=== PATIENT | male | born 1950 | race Caucasian/White ===

== ENCOUNTER 2016-03-08 05:14 | Day surgery (SDC) | payer BC ==
[2016-03-05 09:21] VITALS: BMI 34.0
--- NOTE | 2016-03-05 10:05 | PAT Medication Instructions ---
Service Date Mar 05, 2016. Current Home Medication List Acetaminophen (Tylenol), 500 MG PO BID Albuterol (Proventil Hfa), 3 PUFFS INH Q4 PRN for PRN Ascorbic Acid (Vitamin C), 1,000 MG PO QAM Aspirin Enteric Coated (Ecotrin Or Generic), 81 MG PO QAM Atenolol (Tenormin), 25 MG PO BID Bupropion (Wellbutrin-Xl), 300 MG PO QAM Cholecalciferol (Vitamin D), 1,000 INTER.UNIT PO BID Clopidogrel Bisulfate (Plavix), 75 MG PO QAM Clotrimazole W/ Betamethasone (Lotrisone), 1 APPLN TOP DAILY PRN for PIMPLE RASH Coenzyme Q10 (Ubidecarenone) (Co Q10), Unknown Dose PO QAM Doxazosin Mesylate (Cardura), 1 MG PO QPM Folic Acid (Folic Acid), 1 MG PO BID Nitroglycerin (Nitrostat), 0.4 MG UT PRN Rosuvastatin Calcium (Crestor), 20 MG PO QPM Tiotropium Black (Spiriva Handihaler), 1 CAP INH QAM Triamcinolone Acet (Triamcinolone Acetonide), 1 DOSE TOP BID PRN for UD [Protein Shakes ], 30 GM PO QID [centum cardio], Unknown Dose PO QPM Medication Instructions For Your Scheduled Surgery - Continue as directed: Nitroglycerin (Nitrostat), 0.4 MG UT PRN - Last dose 03/04/16: Clopidogrel Bisulfate (Plavix), 75 MG PO QAM Coenzyme Q10 (Ubidecarenone) (Co Q10), Unknown Dose PO QAM - Hold the following medications the morning of surgery: Ascorbic Acid (Vitamin C), 1,000 MG PO QAM Clotrimazole W/ Betamethasone (Lotrisone), 1 APPLN TOP DAILY PRN for PIMPLE RASH [Protein Shakes ], 30 GM PO QID Cholecalciferol (Vitamin D), 1,000 INTER.UNIT PO BID Folic Acid (Folic Acid), 1 MG PO BID Triamcinolone Acet (Triamcinolone Acetonide), 1 DOSE TOP BID PRN for UD - Take the following medications the morning of surgery with a sip of water OTHERWISE NOTHING TO EAT OR DRINK AFTER MIDNIGHT: Acetaminophen (Tylenol), 500 MG PO BID (may take if needed up to 4 hours prior to surgery) Albuterol (Proventil Hfa), 3 PUFFS INH Q4 PRN for PRN (use if needed; bring to hospital) Aspirin Enteric Coated (Ecotrin Or Generic), 81 MG PO QAM Atenolol (Tenormin), 25 MG PO BID Bupropion (Wellbutrin-Xl), 300 MG PO QAM Tiotropium Black (Spiriva Handihaler), 1 CAP INH QAM - Take the following medications as scheduled the night before surgery: Acetaminophen (Tylenol), 500 MG PO BID Albuterol (Proventil Hfa), 3 PUFFS INH Q4 PRN for PRN Atenolol (Tenormin), 25 MG PO BID [centum cardio], Unknown Dose PO QPM [Protein Shakes ], 30 GM PO QID Cholecalciferol (Vitamin D), 1,000 INTER.UNIT PO BID Folic Acid (Folic Acid), 1 MG PO BID Rosuvastatin Calcium (Crestor), 20 MG PO QPM Doxazosin Mesylate (Cardura), 1 MG PO QPM If you have any questions please call us at [phone] (Coral Benitez PA-C) or [phone] or [phone]
[2016-03-05 10:37] LABS: BASO % 0.4 %; BASO ABS # 0.03 K/uL (0-0.2); COMPLETE YES; EOS % 2.3 %; IG% 0.4 %; LYMPH % 12.5 %; LYMPH ABS # 1.02 K/uL (1.2-3.4); MEAN CELL VOLUME 90.5 fL (80-100); MEAN CORPUSCULAR HEMOGLOBIN 31.3 pg (25-34); MEAN CORPUSCULAR HGB CONC 34.6 g/dl (32-36); MEAN PLATELET VOLUME 9.7 fL (7.4-10.4); MONO % 10.3 %; NEUT % 74.1 %; PLATELET COUNT 249 K/uL (130-400); RED BLOOD COUNT 4.09 M/uL (4.7-6.1); WHITE BLOOD COUNT 8.13 K/uL (4.8-10.8)
[2016-03-05 11:14] LABS: BUN/CREATININE RATIO 39.3 (10-20); CALCIUM 8.5 mg/dl (8.5-10.1); CREATININE 0.75 mg/dl (0.60-1.40)
[~2016-03-08] VITALS: Ht 172.7 cm; Wt 100.9 kg
[~2016-03-08 05:14] MED LIST: ACET-1256 PO; ALBUAER INH; ASCO10003 PO; ASPI81TA21 PO; ATEN25TA PO; BUPRTAB51 PO; CHOL100010 PO; CLOP1TAB5 PO; CLOTCRE TOP; COEN1CAP28 PO; DOXA2TAB PO; FLV1 PO; NTRGSL/4 UT; PROTEIN SHAKES PO; ROSU40TA PO; SPRIN/30 INH; TRMO180 TOP; [UNRECOGNIZED DRUG - OTHER] PO
[2016-03-08 05:43] VITALS: BP 87/37; PULSE 55; TEMP 36.6; O2SAT 98; Ht 172.7 cm; Wt 100.9 kg
[2016-03-08] MEDS ORDERED: LACTATED RINGER'S 1000ML 1,000 ML IV SCH (06:00)
[2016-03-08] MEDS ORDERED: Daptomycin IV (06:14)
--- NOTE | 2016-03-08 06:53 | History & Physical Bridge Note ---
H&P Re-Evaluation Bridge Note: I have examined the patient, reviewed the History & Physical and in the interval since the performance of the History & Physical I have noted the following changes of clinical significance: No changes noted
[2016-03-08] MEDS ORDERED: MIDAZOLAM HCL 1 MG/ML 2ML VIAL ONE (06:59)
[2016-03-08] MEDS ORDERED: FENTANYL CITRATE INJ 50 MCG/1 ML 2 ML VIAL ONE (06:59)
[2016-03-08] MEDS ORDERED: PROPOFOL IV EMULSION 10 MG/ML 20 ML VIAL IV ONE (07:46)
[2016-03-08] MEDS ORDERED: METHYLENE BLUE 1% 10 ML VIAL ONE (07:46)
[2016-03-08] MEDS ORDERED: NEOSTIGMINE METHYLSULFATE 5 MG/5 ML SYR ONE (07:46)
[2016-03-08] MEDS ORDERED: ONDANSETRON INJ 2 MG/ML 2 ML VIAL ONE (07:46)
[2016-03-08] MEDS ORDERED: LIDOCAINE HCL 2% 2 ML VIAL (20MG/ML) ONE (07:46)
[2016-03-08] MEDS ORDERED: LARYING-O-JET KIT (LTA) EXT ONE ×2 (07:46)
[2016-03-08] MEDS ORDERED: EpHEDrine SULFATE 50MG/5ML SYR ONE (07:46)
[2016-03-08] MEDS ORDERED: ROCURONIUM BROMIDE 10 MG/ML 5 ML VIAL ONE (07:46)
[2016-03-08] MEDS ORDERED: PHENYLEPHRINE 100MCG/ML 5ML SYR ONE (07:46)
[2016-03-08] MEDS ORDERED: GLYCOPYRROLATE INJ 0.2 MG/ML VIAL ONE (07:46)
[2016-03-08] MEDS ORDERED: ONDANSETRON INJ 2 MG/ML 2 ML VIAL IV PRN ×2 (08:00→09:15)
[2016-03-08] MEDS ORDERED: HYDROmorphone INJ 1 MG/ML SYR IV PRN (08:00)
[2016-03-08] MEDS ORDERED: EpHEDrine SULFATE INJ 50 MG/ML AMP IV PRN (08:00)
[2016-03-08] MEDS ORDERED: FENTANYL CITRATE INJ 50 MCG/1 ML 2 ML VIAL IV PRN (08:00)
[2016-03-08] MEDS ORDERED: ATROPINE SULFATE 0.1 MG/ML 5ML SYR IV PRN (08:00)
[2016-03-08] MEDS ORDERED: LIDOCAINE/EPINEPHRINE 1% 20 ML VIAL INJ ONE (08:48)
[2016-03-08] MEDS ORDERED: METHYLENE BLUE 1% 10 ML VIAL TOP ONE (08:49)
[2016-03-08] MEDS ORDERED: THROMBIN 5,000 UNITS (BOVINE) TOP ONE (08:50)
[2016-03-08] MEDS ORDERED: GELFOAM SIZE 100 TOP ONE (08:51)
[2016-03-08] MEDS ORDERED: GELATIN SPONGE 12-7MM TOP ONE (08:52)
[2016-03-08] MEDS ORDERED: SODIUM CHLORIDE 0.9% 1000ML 1,000 ML IV SCH (09:10)
--- NOTE | 2016-03-08 09:10 | [facility] Post Operative Brief Note ---
Immediate Operative Summary Operative Date Mar 08, 2016. Pre-Operative Diagnosis Decubitus Ulcer of Coccygeal Region, Stage 4 Post-Operative Diagnosis Same as preoperative Procedure(s) Performed Debridement of Coccygeal Ulcer, Placement of Prevena System Surgeon Dr. Margaret Young Commercial Litigation Attorney Surgeon(s) Hoa Haider PA-C Estimated Blood Loss 15ml Findings spiculated coccygeal bone, significant skin laxity Specimens SENT FRESH FOR CULTURE: A.) Coccygeal Ulcer, left OR6 @ 0810 B.) Bone Culture, left OR6 @ 0810 PERMANENT TISSUE: C.) Coccygeal Debridement Anesthesia general Complication(s) None Disposition Recovery Room / PACU
[2016-03-08] MEDS ORDERED: OXYC-57 PO (09:12)
[2016-03-08] MEDS ORDERED: METOCLOPRAMIDE HCL INJ 5 MG/ML 2 ML VIAL IV PRN (09:15)
[2016-03-08] MEDS ORDERED: OXYCODONE/ACETAMINOPHEN 5-325 TAB PO PRN ×2 (09:15)
[2016-03-08] MEDS ORDERED: ACETAMINOPHEN 325 MG TAB PO PRN (09:15)
--- NOTE | 2016-03-08 09:17 | Discharge Instructions ---
Discharge Instructions Admission Reason for Admission: Decubitus Ulcer Of Coccygeal Region Discharge Discharge Diagnosis / Problem: ducubitus ulcer of coccygeal region Discharge Goals Goal(s): Decrease discomfort Activity Recommendations Activity Limitations: as noted below ACTIVITY RECOMMENDATIONS: __Normal activities _x_No bending, lifting or straining. No laying or sitting on wound. You may lay on your side __No driving __Driving allowed when you are off pain medications __Walking permitted __You should have help at home for ___ days DRESSINGS: __No dressings required _x_Keep dressings dry/in place until first office visit. You may reinforce dressing around your wound vac if needed. Vac will stay on for one week. __Remove dressings ___ and leave dressings off __Apply ice ___ days __Remove dressings and reapply garment __Apply antibiotic ointment (Bacitracin, Neosporin, etc) to wounds 3-4 times/ day for 10 days BATHING: _x_Keep dressings dry _x_Sponge bathing permitted __Showering permitted _x_No swimming, hot tubs or soaking in a tub MEDICATIONS: Resume previous medications unless instructed otherwise by your surgeon. _x_Do not use aspirin, Motrin, Advil or Ibuprofen as these may promote bleeding. Please use Tylenol. YOU MAY RESUME PLAVIX TOMORROW _X_Prescription(s) provided: Endocet provided for pain control. OTHER INSTRUCTIONS: __Record drain output 2-3 times per day SPECIAL CARE INSTRUCTIONS: * It is normal to have a mild fever after surgery. If your temperature is higher than 101.5 degrees F, please call the office at [phone]. * Constipation is a typical side effect of pain medication. An over-the- counter stool softener will help relieve this. * Leaking around surgical drains may occur and should not cause concern. Sometimes these drains become clogged. If this happens, remove the bulb and milk the clot out of the tube, then replace the bulb. * Drainage from wounds after liposuction is normal and should be expected. Garments will become soiled. You should protect furniture and bedding. This drainage should mostly subside within 2-3 days. Leave garments in place unless instructed to remove them. * If you have unusual drainage from a wound or are concerned you have an infection or have any questions or concerns, please call the office at [phone]. FOLLOW UP VISIT: If not already scheduled, please call the office, , when you return home after surgery to schedule an appointment to be seen in _2__ days. You will also come back to office for removal of wound vac in 7 days. Please call today to schedule appointments. . Current Hospital Diet Patient's current hospital diet: Discharge Diet Recommended Diet: Regular Diet Procedures Procedures Performed: Debridement of Coccygeal Ulcer, Placement of Prevena System Pending Studies Studies pending at discharge: yes List of pending studies: pathology Medical Emergencies . Who to Call and When: Medical Emergencies: If at any time you feel your situation is an emergency, please call 911 immediately. . Non-Emergent Contact Non-Emergency issues call your: Primary Care Provider, Surgeon . "Provider Documentation" section prepared by Hoa Haider. VTE Core Measure Inpt VTE Proph given/why not?: SCD's
--- NOTE | 2016-03-08 09:29 | Anesthesiology Progress Note ---
Anesthesia Post Op Note Date & Time Mar 08, 2016 at 09:28 Vital Signs Pain Intensity: 1 Vital Signs Past 12 Hours Date Time Temp Pulse Resp B/P Pulse Ox O2 Delivery O2 Flow Rate FiO2 03/08/16 09:22 121/48 03/08/16 09:20 76 14 80/64 100 Mask 10 03/08/16 09:12 36.6 74 14 119/62 100 Mask 10 03/08/16 05:43 36.6 55 16 87/37 98 Room Air Notes Mental Status: alert / awake / arousable, participated in evaluation Pt Amnestic to Procedure: Yes Nausea / Vomiting: adequately controlled Pain: adequately controlled Airway Patency, RR, SpO2: stable & adequate BP & HR: stable & adequate Hydration State: stable & adequate Anesthetic Complications: no major complications apparent
[2016-03-08 10:00] VITALS: BP 125/53; PULSE 77; TEMP 36.2; O2SAT 96
[2016-03-08 10:30] VITALS: BP 87/42; PULSE 72; O2SAT 98
[2016-03-08 10:57] VITALS: BP 88/50; PULSE 71; TEMP 36.2; O2SAT 99
--- NOTE | 2016-03-08 13:18 | OPERATIVE REPORT ---
DATE OF OPERATION: 03/08/2016 PREOPERATIVE DIAGNOSIS: Stage IV coccygeal ulcer with osteomyelitis. POSTOPERATIVE DIAGNOSIS: Same. PROCEDURE: Excisional debridement of stage IV coccygeal ulcer and closure. SURGEON: Dr. Margaret Young. GAS MANAGER: Hoa Haider PA-C. ANESTHESIA: General. COMPLICATIONS: None. INDICATION FOR THE PROCEDURE: The patient is a 65-year-old male with longstanding history of a pilonidal cysts, who underwent shoulder surgery about a year ago and subsequently developed a coccygeal ulcer, which he attempted to treat on his own unsuccessfully. He has been followed at the wound care center for several months and has undergone localized debridement, as well as placement of a wound VAC. However, he has developed osteomyelitis and I was asked to evaluate him for possible closure. Of note, the patient was previously diabetic, but he has lost 100 pounds through diet and this has resolved. Prior to surgery, we discussed options including debridement with placement of a wound VAC, debridement and possible closure if possible. BRIEF DESCRIPTION OF THE PROCEDURE: Risks, benefits, and alternatives of the procedure were explained to the patient who agreed and signed consent. He was identified and marked in the preoperative holding area. He was brought to the operating room where he was placed under general anesthesia and positioned prone. Surgical site was prepped and draped sterilely. A time-out procedure was performed. Methylene blue was instilled into the wound cavity prior to debridement. The ulcer was marked for excision. There was some small tunneling at 12 o'clock position, and therefore the excision was extended superiorly. 1% lidocaine with epinephrine was used to anesthetize the area. A 10 blade scalpel was used to make the incision through skin and subcutaneous tissue. Incision was deepened using electrocautery. The incision was carried down to the wound base, making sure that healthy viable bleeding fat and subcutaneous tissue was identified surrounding all aspects of the wound. The majority of the ulcer was removed. The wound base then exhibited some residual pseudobursa which was stained methylene blue. A rongeur was used to remove spiculated bone, as well as all remaining apparent pseudobursa. A bone culture was obtained. Pathology specimens were sent to evaluate for osteomyelitis as well. Hemostasis was achieved with electrocautery. Three liters of normal saline was used with the pulse grinder set up operator gear tool to completely irrigate the wound. Gelfoam and thrombin were placed in the wound base to further facilitate hemostasis. Once the bleeding had stopped. The Gelfoam was removed. I then debated placement of a wound VAC versus attempting closure. I did discuss with the patient preoperatively that as he was ambulatory, I did not feel a muscle flap would be a viable option. However, given the significant amount of skin and subcutaneous fat redundancy related to his weight loss, the wound edges were easily opposed in the midline with no tension whatsoever. As such, I felt it would be reasonable to attempt primary closure. The coccyx rongeured down such that there were no pressure points palpable. 2-0 Vicryl suture was used to reapproximate subcutaneous fat to close down the space. 2-0 Vicryl deep dermal sutures were then placed as well. 3-0 nylon interrupted vertical mattress sutures were placed. I discussed the case with Renetta Herrera regarding possible wound VAC placement and I elected to place an incisional Prevena wound VAC following the procedure in order to help facilitate the fluid to egress. This was placed at the close of the case. There were no complications. The patient was awakened and transferred to the recovery room in satisfactory condition. I attest to the content of the Intraoperative Record and any orders documented therein. Any exceptions are noted below. REEMA
[2016-03-16] MEDS ORDERED: LEVO1TAB34 PO (11:16)
[2016-03-16] MEDS ORDERED: AMOX875T PO (11:17)
== END 2016-03-08 11:00 | disposition home or self-care (01) ==
LOC: C.ACU 05:14
PROVIDERS: ATTEND Plastic Surgery
DX: L89.154 Pressure ulcer of sacral region, stage 4 (principal); M46.28 Osteomyelitis of vertebra, sacral and sacrococcygeal region; J44.9 Chronic obstructive pulmonary disease, unspecified; I25.2 Old myocardial infarction; E11.9 Type 2 diabetes mellitus without complications; I10 Essential (primary) hypertension; G47.33 Obstructive sleep apnea (adult) (pediatric); F32.9 Major depressive disorder, single episode, unspecified; M19.90 Unspecified osteoarthritis, unspecified site; E66.9 Obesity, unspecified; Z68.34 Body mass index [BMI] 34.0-34.9, adult; Z96.641 Presence of right artificial hip joint; Z98.41 Cataract extraction status, right eye; Z98.42 Cataract extraction status, left eye; Z90.49 Acquired absence of other specified parts of digestive tract; Z79.02 Long term (current) use of antithrombotics/antiplatelets

== ENCOUNTER → 2016-05-05 | Outpatient (CLI) | payer BC ==
[~2016-05-05] MED LIST changes: +ACET1TAB84 PO; +CHOLTAB9 PO; -CLOP1TAB5 PO; +Daptomycin IV; +FERR28TA PO; +FERR50TA3 PO; +MULT-573 PO; +OXYC-57 PO; +PLV75 PO; +TYLER650 PO; +ZLF/50 PO
--- NOTE | 2016-05-06 06:37 | PAP/PSG TECHNICIAN REPORT ---
[facility] Digital Archivist Polysomnogram Report Study name: None Report date: 05/06/2016 Study date: 05/05/2016 Referring Physician: Ken JHA M.D. Name: NINO SEAMAN Interpreting Physician: Linda Jha M.D. Date of : 1950 Digital Archivist: Will Regalado RPSGT. Sex: Male Age: 65 StudyType: PSG Weight: 227 lbs Height: 65 years, Height 5' 6" BMI: 36.63 Medications: PLAVIX 75 MG, WELLBUTRIN XL 300 MG, CARDURA 1 MG, NITROSTAT 0.4 MG, ARISTOCORT, TENORMIN 25 MG, CRESTOR 40 MG, BENEFIBER, ALBUTEROL, LASIX 20 MG, GLUCOPHAGE 500 MG, POTASSIUM CHLORIDE ER MEQ Patient History PATIENT HAS BEEN WEARING CPAP SINCE THE . HIS LAST SLEEP STUDY WAS DONE IN 2011. HE WAS POSITIVE FOR MAMI WITH AN AHI OF 24/HR. SINCE THEN HE HAS LOST OVER A 100 POUNDS. HE IS HERE TODAY FOR A BASELINE STUDY TO ASSESS THE SEVERITY OF HIS MAIM. ESS = 2 RM 2 Parameters Monitored NPSG: E1-M2, E2-M1, Fp1-M2, Fp2-M1, F3-M2, F4-M2, F4-M1, C3-M2, C4-M2, C4-M1, O1-M2, O2-M2, O2-M1, T3-M2, T4-M1, P3-M2, P4-M1, CHIN1, CHIN2, HR, EKG, Legs, PFLOW, SNOR, FLOW, CFLOW, Tidal Volume, THOR, ABDO, SpO2, PLTH, CPRESS, ETCO2 Wave, ETCO2, pH Sleep Architecture Sleep Stages Time at Lights Off 11:18:21 PM STAGES Time (min.) TST (%) Time at Lights On 5:23:51 AM Wake 144.5 -- Total Recording Time (TRT) 366.00 min. N1 26.5 12 Total Sleep Period (TSP) 352.0 min. N2 174.0 79 Total Sleep Time (TST) 221.0min. N3 0.0 0 Awake Time 145.0 min. REM 20.5 9 Wake after Sleep Onset 131.0 min. Sleep Efficiency (SE) 60 % Sleep Onset Latency (MAGUE) 13.5 min. Number of Stage 1 Shifts None Awakenings 35 Stage Changes 119 Number of REM periods 11 REM 20.5 9 REM Latency 123.0 min. NREM 200.5 91 Body Position Analysis Supine Right Left Side Prone Vertical Total Sleep Time (min.) 337.0 0.0 7.0 6.98 0.0 0.0 Total Sleep Time (%) 97% 0% 3% 3 0% N/A% Total Sleep Time REM (min.) 20.5 0.0 0.0 None 0.0 0.0 Total Sleep Time NREM (min.) 193.5 0.0 7.0 None 0.0 0.0 Intermittent Wake (min.) 123.0 0.0 21.5 None 0.0 0.0 Total Sleep Period (%) 92% None None None None None Arousals Myoclonus (PLM) * Events Count Index Events Count Index Spontaneous 21 6 Events Awake (PLMW) 275 114.2 Respiratory 17 5.2 Events Asleep w/ Arousal (PLMA) 38 10.3 PLM 38 10 Events Asleep w/o Arousal (PLMS) 531 144.2 Snoring 24 7 Total Asleep 569 154.5 Total 100 27 Total 844 139 Respiratory Analysis * CA OA MA CH H RERA Total Count 0 8 0 0 31 8 39 Index 0.0 2.2 0.0 0 8.4 2 12.8 Mean Duration 0.0 28.1 0.0 0.00 19.9 17.1 20.8 Longest Duration 0.0 36.1 0.0 0.00 0.0 20.3 46.5 Respiratory Event Summary Total Supine ~Supine Right Left Prone REM NREM Apneas Count 8 8 0 N/A 0 N/A 5 3 Index 2.2 2 0 N/A 0.0 N/A 15 1 Hypopneas (4% Desat) Count 31 31 0 N/A 0 N/A 15 16 Index 8.4 8.7 0 N/A 0.0 N/A 43.9 4.8 Apneas & All Hypopneas Count 39 39 0 N/A 0 N/A 20 19 Index 10.6 11 0 N/A 0 N/A 58.5 5.7 Respiratory Events (Java Security Engineer+All Hyp+RERA) Count 39 47 0 N/A 0 N/A 20 19 Index 12.8 13 0 N/A 0.0 N/A 58.5 8.1 Respiratory Related Arousal Count 17 47 0 N/A 0 N/A 6 13 Index 5.2 5 0 N/A 0 N/A 18 4 Snoring Analysis Supine Right Left Prone REM NREM Total Snore duration 26.0 min Snores count 961 N/A 44 N/A 63 942 1,005 Snore mean duration 1.6 Sec Snores index 269 N/A 378 N/A 184.4 281.9 272.9 TST with snoring (%) 11.8% SpO2 Analysis Total REM NREM Awake <50% 0.0 min. 0.0 min. 0.0 min. 0.0 min. 51 - 60% 0.0 min. 0.0 min. 0.0 min. 0.0 min. 61 - 70% 0.0 min. 0.0 min. 0.0 min. 0.0 min. 71 - 80% 0.4 min. 0.0 min. 0.0 min. 0.4 min. 81 - 90% 93.7 min. 10.6 min. 61.0 min. 22.1 min. 91 - 100% 268.3 min. 9.9 min. 139.5 min. 118.9 min. Average 91 90 91 92 Minimum SpO2 79 81 81 79 Desaturation Event Index 7.2 58.5 6.3 1.7 # Desat. Events below 89% 27 17 10 0 Time(%) with Saturation below 89% 5.7 1.6 3.3 0.8 Time(min.) with Saturation below 89% 20.5 5.6 11.9 3.0 Heart Rate Analysis End Tidal CO2 Analysis Min (bpm) Max (bpm) Average (bpm) TSP (mins) % of TSP Awake 52 127 62 Above 55 mmHg 0.0 0.0 NREM 51 71 61 50-55 mmHg 22.0 10.0 REM 52 73 62 45-50 mmHg 0.0 0.0 Overall 51 73 61 40-45 mmHg 0.0 0.0 35-40 mmHg 38.9 17.6 30-35 mmHg 108.0 48.9 Average ETCO2 0.0 Supplemental O2 Values Minimum O2 level: None Value Start Time End Time Digital Archivist Comments Mr. Seaman slept in the left and supine positions. No cardiac arrhythmia noted. Leg movements noted. No bruxism noted. Snoring was noted and scored as a 3 on a scale of 1 through 5. (0=no snoring, 5=snoring loud enough to be heard through a closed door or down the [address] way) Mr. Seaman awoke to use the restroom 5 times during the night. Mr. Seaman stated I did not sleep as well as I do when I am in my own bed. The final report will be interpreted and signed by a sleep physician. The completed physician report will then be placed in the patient medical record. Therapy (cm H2O) 0 TIB (min.) 365.5 TST (min.) 221.0 Sleep Onset (min.) 13.5 REM Onset From Sleep (min.) 123.0 Sleep Efficiency % 60 Wakefulness (%) 40 Wakefulness (min.) 145.0 NREM 1 (%) 12 NREM 1 (min.) 26.5 NREM 2 (%) 79 NREM 2 (min.) 174.0 NREM 3 (%) 0 NREM 3 (min.) 0.0 REM (%) 9 REM (min.) 20.5 # Arousals 100 Arousal Index 27 # Snore 1,005 Snore Index 272.9 AHI 10.6 AHI Supine 11 AHI Non-Supine 0 NREM AHI 5.7 REM AHI 58.5 RDI 12.8 # Obstructive Apnea 8 # Central Apnea 0 # Mixed Apnea 0 # Hypopneas 31 RERAs 8 Total Respiratory Events 49 Time Below SpO2 89% (min.) 17.5 Mean NREM SpO2 (%) 91 Mean REM SpO2 (%) 90 Mean Sleep SpO2 (%) 91 Min NREM SpO2 (%) 81 Min REM SpO2 (%) 81 Position Supine (min.) 337.0 Position Non-supine (min.) 7.0 LM Index Sleep 154.5 LM Index NREM 165.2 LM Index REM 49.8 Mean Heart Rate (bpm) 61 Min Heart Rate (bpm) 51
--- NOTE | 2016-05-24 08:14 | POLYSOMNOGRAPH REPORT ---
REFERRING PERSON: Dr. Viktoria Jha. FINE CRAFT ARTIST: Will Regalado. Mr. Salcedo is a 65-year-old male who has been wearing CPAP since the . His last sleep study was in 2011. Previous AHI was 24. Since then, he has lost 100 pounds and he is here for a new baseline study to quantify the severity of his apnea or to see if it is still present with weight loss. His [place] Sleepiness Scale score on the evening of this study is 2. BMI is 36.63. Following the technical and digital specifications of the [place] [employer] (AASM) a standard diagnostic polysomnogram was performed monitoring EEG, EOG, EMG (chin and leg deviations), oxygen saturation, body position, digital video, respiratory effort and airflow. The sleep Stage and event scoring was based on the AASM Manual for the Scoring of Sleep and Associated Events 2007 edition. Apneas are defined as a drop in the peak thermal sensor excursion by >90% of baseline for at least 10 seconds. Hypopneas were scored using the 4% oxygen desaturation rule (4A-Medicare) and a decrease in the nasal pressure excursions by >30% of baseline for at least 10 seconds. Respiratory effort-related arousal (RERA's) is defined as a sequence of breaths lasting at least 10 seconds characterized by increasing respiratory effort or flattening of the nasal pressure waveform leading to an arousal from sleep when the sequence of breaths does not meet criteria for an apnea or hypopnea. Apnea Hypopnea index (AHI) is defined as the number of apneas and hypopneas occurring in an hour of sleep. Respiratory disturbance index (RDI) is defined as the number of apneas, hypopneas, and RERA's occurring in an hour of sleep. Mr. Salcedo's total sleep period time was 352 minutes. Total sleep time was 221 minutes. Sleep efficiency was 60%. Latency to sleep onset was 13.5 minutes with wake after sleep onset of 131 minutes. Total non-REM sleep time was 200.5 minutes. He spent 12% of that time in N1 sleep and 79% in N2 sleep. There was no N3 sleep on this test. REM latency was 123 minutes. Total REM sleep time was 20.5 minutes or 9% of total sleep time. There were 100 cortical arousals from sleep. 17 of these arousals were due to respiratory events, 38 were due to periodic limb movements, 24 due to snoring, and 21 were spontaneous. There were 569 periodic limb movements noted on this test. Limb movement index was 154.5. Limb movement with arousal index was 10.3. There were 8 obstructive, no central, and no mixed apneas on this test. There were 31 hypopnea and 8 RERA. Apnea-hypopnea index was 10.6 consistent with mild sleep apnea. Supine AHI was 11 and REM AHI was 58.5. There were 1005 snoring events recorded on this test. Total sleep time with snoring was 11.8%. Mean saturation was 91% with desaturations to 79%. Saturations were less than 89% for 20.5 minutes of recording time. This is significant nocturnal hypoxemia. There was no cardiac ectopy noted on this study. Heart rates during sleep ranged from a low of 51 beats per minute to a high of 73 beats per minute. End-tidal CO2 was recorded on this test. End-tidal CO2s were between 30 and 35 mmHg for 48.9% of total sleep period time, between 35 and 40 mmHg for 17.6%, and between 50 and 55 mmHg for 10% of total sleep period time. IMPRESSION AND PLAN: A 65-year-old male with evidence after 100 pounds of weight loss of mild sleep apnea with mild nocturnal hypoxemia. 1. This patient should continue on positive airway pressure therapy. This will eliminate snoring, apnea as well as hypoxemia. Should he be on an auto-adjusting CPAP, he could be set at pressures of 5-15 to find optimal pressure at his new weight and then be set to that pressure. If he is on his set pressure device, he may need to return to the sleep lab for a titration study to determine his optimal pressure for 2017.
== END | disposition home or self-care (01) ==
LOC: C.NEUR 21:00
PROVIDERS: ATTEND Family Medicine
DX: G47.33 Obstructive sleep apnea (adult) (pediatric) (principal)

== ENCOUNTER 2016-10-16 10:05 | Emergency (ER) | payer BC ==
[~2016-10-16] VITALS: Ht 172.7 cm; Wt 109.0 kg
[~2016-10-16 10:05] MED LIST changes: -ACET1TAB84 PO; -CHOLTAB9 PO; -Daptomycin IV; -FERR28TA PO; -FERR50TA3 PO; -MULT-573 PO; -OXYC-57 PO; -PLV75 PO; -PROTEIN SHAKES PO; -TYLER650 PO; -ZLF/50 PO
[2016-10-16 10:10] VITALS: Ht 172.7 cm; Wt 109.0 kg
--- NOTE | 2016-10-16 10:38 | EMERGENCY ROOM VISIT NOTE ---
History Report prepared by Danish: Анна Leon Under the Supervision of: Dr. Murtaza Carroll M.D. First contact with patient: 10:27 Chief Complaint: IRREGULAR HEARTBEAT Stated Complaint: SOB, ELEVATED HEART RATE, CARDIAC HX History of Present Illness The patient is a 65 year old male who presents to the Emergency Room with complaints of an irregular heartbeat beginning today. The patient states that he also had shortness of breath beginning this morning. The patient reports that he has not had edema in his legs. He reports having a history of a heart attack and that he has 1 stent, and denies having a history of thyroid problems and blood clots.The patient reports that he is on Plavix. Source of History: patient Onset: today Position: other (global) Quality: other (irregular heartbeat) Associated Symptoms: + SOB Note: symptoms denied: edema in legs Review of Systems See HPI for pertinent positives & negatives. A total of 10 systems reviewed and were otherwise negative. Past Medical & Surgical Medical Problems: (1) Bronchitis (2) Diabetes (3) Heart disease (4) Hypertension (5) Sacral wound Surgical Problems: (1) H/O shoulder replacement (2) History of hip replacement Family History FHx: heart disease Hypertension Social History Smoking Status: Former Smoker Marital Status: Occupation Status: employed Current/Historical Medications Scheduled Acetaminophen (Tylenol Arthitis Ext Rel), 1,300 MG PO QAM Acetaminophen (Tylenol Arthritis Ext Rel), 650 MG PO QPM Aspirin Enteric Coated (Ecotrin Or Generic), 81 MG PO QAM Atenolol (Tenormin), 25 MG PO BID Bupropion (Wellbutrin-Xl), 300 MG PO QAM Cholecalciferol (D3-1000), 1,000 UNIT PO BID Coenzyme Q10 (Ubidecarenone) (Co Q10), Unknown Dose PO QAM Doxazosin Mesylate (Cardura), 1 MG PO QPM Ferrous Gluconate (Iron), 750 MG PO AM Ferrous Sulfate (Iron (Ferrous Sulfate)), 500 MG PO QPM Folic Acid (Folic Acid), 1 MG PO BID Multiple Vitamins W/ Minerals (Centrum Cardio), 1 TAB PO QAM Nitroglycerin (Nitrostat), 0.4 MG UT PRN Rosuvastatin Calcium (Crestor), 20 MG PO QPM Sertraline HCl (Sertraline HCl), 50 MG PO QAM Tiotropium [place] (Spiriva [place]), 1 CAP INH QAM Scheduled PRN Albuterol (Proventil Hfa), 3 PUFFS INH Q4 PRN for PRN Clotrimazole W/ Betamethasone (Lotrisone), 1 APPLN TOP DAILY PRN for PIMPLE RASH Triamcinolone Acet (Triamcinolone Acetonide), 1 DOSE TOP BID PRN for UD Allergies Coded Allergies: No Known Allergies (Verified , 10/16/16) Physical Exam Vital Signs Date Time Temp Pulse Resp B/P (MAP) Pulse Ox O2 Delivery O2 Flow Rate FiO2 10/16/16 15:51 36.8 96 18 96/61 98 10/16/16 15:00 96 18 96/61 98 10/16/16 14:30 90 14 96 10/16/16 14:00 89 18 95 10/16/16 13:46 87 10/16/16 13:30 92 18 96 10/16/16 13:00 86 17 96 10/16/16 12:35 96/61 10/16/16 12:30 80 16 94 10/16/16 12:15 91 18 80/58 96 10/16/16 12:13 80/58 10/16/16 12:12 86/56 10/16/16 12:00 81 17 10/16/16 11:30 79 14 10/16/16 11:00 89 19 10/16/16 10:50 89 10/16/16 10:37 Room Air 10/16/16 10:10 36.8 84 18 96/64 95 Room Air Physical Exam GENERAL: Patient is well appearing and in no acute distress. HEENT: No acute trauma, normocephalic atraumatic, mucous membranes moist, no nasal congestion, no scleral icterus. NECK: No stridor, no adenopathy, no meningismus, trachea is midline. LUNGS: No dyspnea. Clear to auscultation and equal bilaterally. No wheeze, no rhonchi. HEART: Irregular heart rate. ABDOMEN: Soft, nontender, bowel sounds positive, no masses appreciated, no peritonitis. BACK: No midline tenderness, no CVA tenderness EXTREMITIES: Normal motion all extremities, no cyanosis, no edema. NEUROLOGIC: Alert and oriented, no acute motor or sensory deficits, no focal weakness, cranial nerves grossly intact. SKIN: No rash, no jaundice, no diaphoresis. Medical Decision & Procedures ER Provider Diagnostic Interpretation: X ray results are stated below per my interpretation and the radiologist's interpretation. CHEST ONE VIEW PORTABLE HISTORY: Atypical Chest Pain COMPARISON: Chest 01/17/2015. FINDINGS: The lungs are clear. Cardiac silhouette is normal in size. No pleural effusions. No pneumothorax. Bilateral shoulder arthroplasties. IMPRESSION: No significant change compared to the prior study. No acute process. Electronically signed by: Beto Rodriguez M.D. 10/16/2016 11:00 AM Dictated Date/Time: 10/16/2016 10:59 AM Laboratory Results 10/16/16 10:45 Red Blood Count 5.15, Mean Corpuscular Volume 90.1, Mean Corpuscular Hemoglobin 33.0, Mean Corpuscular Hemoglobin Concent 36.6, Mean Platelet Volume 9.9, Neutrophils (%) (Auto) 76.7, Lymphocytes (%) (Auto) 9.3, Monocytes (%) (Auto) 12.5, Eosinophils (%) (Auto) 0.9, Basophils (%) (Auto) 0.3, Neutrophils # (Auto ) 5.39, Lymphocytes # (Auto) 0.65, Monocytes # (Auto) 0.88, Eosinophils # (Auto ) 0.06, Basophils # (Auto) 0.02 10/16/16 10:45 Test 10/16/16 10:45 White Blood Count 7.02 K/uL (4.8-10.8) Red Blood Count 5.15 M/uL (4.7-6.1) Hemoglobin 17.0 g/dL (14.0-18.0) Hematocrit 46.4 % (42-52) Mean Corpuscular Volume 90.1 fL (80-100) Mean Corpuscular Hemoglobin 33.0 pg (25-34) Mean Corpuscular Hemoglobin Concent 36.6 g/dl (32-36) Platelet Count 197 K/uL (130-400) Mean Platelet Volume 9.9 fL (7.4-10.4) Neutrophils (%) (Auto) 76.7 % Lymphocytes (%) (Auto) 9.3 % Monocytes (%) (Auto) 12.5 % Eosinophils (%) (Auto) 0.9 % Basophils (%) (Auto) 0.3 % Neutrophils # (Auto) 5.39 K/uL (1.4-6.5) Lymphocytes # (Auto) 0.65 K/uL (1.2-3.4) Monocytes # (Auto) 0.88 K/uL (0.11-0.59) Eosinophils # (Auto) 0.06 K/uL (0-0.5) Basophils # (Auto) 0.02 K/uL (0-0.2) RDW Standard Deviation 46.3 fL (36.4-46.3) RDW Coefficient of Variation 14.0 % (11.5-14.5) Immature Granulocyte % (Auto) 0.3 % Immature Granulocyte # (Auto) 0.02 K/uL (0.00-0.02) D-Dimer 330 ug/L FEU (0-500) Anion Gap 6.0 mmol/L (3-11) Est Creatinine Clear Calc Drug Dose 93.5 ml/min Estimated GFR () 98.8 Estimated GFR (Non- 85.2 BUN/Creatinine Ratio 21.6 (10-20) Calcium Level 9.0 mg/dl (8.5-10.1) Magnesium Level 2.0 mg/dl (1.8-2.4) Troponin I < 0.015 ng/ml (0-0.045) Thyroid Stimulating Hormone (TSH) 3.060 uIu/ml (0.300-4.500) Laboratory results as reviewed by me. Medications Administered Medications (Trade) Dose Ordered Sig/Amarjit Route Start Time Stop Time Status Last Admin Dose Admin Warfarin Sodium (Coumadin Tab) 5 mg NOW ONCE PO 10/16/16 15:00 10/16/16 15:01 DC 10/16/16 15:19 5 MG ECG Indication: palpitations Rate (beats per minute): 90 Rhythm: other (irregular with no definitive late P wave; likely atrial fibrillation ) Comparison ECG Date: Change: Repeat ECG: Atrial fibrillation, rate of 85, no acute ischemic changes, similar to previous ED Course 1030: The patient was evaluated in room B5. A complete history and physical exam was performed. 1110: Discussed the patient's case with Dr. Chi. The patient will be evaluated for further treatment and disposition. 1145: He is feeling good and is agreeable to waiting until Dr. Chi is able to evaluate him. 1238: The patient says that he feels fine. His blood pressure is now 96/58 and it was not 80 as was documented in the chart. He states that his blood pressure routinely runs in the 90's, and sometimes even in the 80's. 1346: The patient says he feels fine. 1420: I spoke to Dr. Chi and he said to prepare the patient for discharge and he will order anticoagulation. 1430: Reevaluated the patient. Discussed results and discharge instructions: He verbalized understanding and agreement. The patient is ready for discharge. Medical Decision Differential: NSR, SVT, PACs, PVCs, Cardiac Dysrhythmia, Endocrine Dysfunction, Electrolyte/Metabolic Abnormality, Pulmonary Embolism, Infectious, GI, amongst other pathologies entertained. Pleasant 65 yr old male with complex PMH arrives for evaluation of palpitations associated with some fatigue/mild SOB this morning. Work-up benign and patient comfortable/stable. EKG with Afib (repeated confirms this). Trop normal. BP low but he makes very clear this is normal for him and has had many work-ups previously. Discussed with cards who will evaluate in the ED. Plan to discharge on Coumadin (called by by Drafting Supervisor). Stop plavix. Follow up with coumadin clinic in next few days. Reviewed symptoms requiring RTED. Medication Reconcilliation Current Medication List: was personally reviewed by me Blood Pressure Screening Patient's blood pressure: Low blood pressure Blood pressure disposition: Did not require urgent referral Consults Time Called: 1040 Consulting Physician: Dr. Chi-Cardiology Returned Call: 1110 Discussed the patient's case. The patient will be evaluated for further treatment and disposition. Impression Primary Impression: New onset atrial fibrillation Scribe Attestation The scribe's documentation has been prepared under my direction and personally reviewed by me in its entirety. I confirm that the note above accurately reflects all work, treatment, procedures, and medical decision making performed by me. Departure Information Dispostion Home / Self-Care Referrals Kennedi Haji M.D. (PCP) Ta Chi D.O. Patient Instructions Atrial Fibrillation, My [facility] Additional Instructions Per Dr Chi, please stop taking your Plavix as you will be starting a blood thinner. Dr Chi will manage your blood thinner prescription and will be contacting your pharmacy. It is Very important you have your coumadin level checked on Tuesday or Tuesday through the Coumadin clinic. You were given today's dose of Coumadin.
--- NOTE | 2016-10-16 11:01 | DIAGNOSTIC IMAGING REPORT ---
CHEST ONE VIEW PORTABLE HISTORY: Atypical Chest Pain COMPARISON: Chest 01/17/2015. FINDINGS: The lungs are clear. Cardiac silhouette is normal in size. No pleural effusions. No pneumothorax. Bilateral shoulder arthroplasties. IMPRESSION: No significant change compared to the prior study. No acute process. Electronically signed by: Beto Rodriguez M.D. 10/16/2016 11:00 AM Dictated Date/Time: 10/16/2016 10:59 AM
[2016-10-16 11:08] LABS: BASO % 0.3 %; BASO ABS # 0.02 K/uL (0-0.2); COMPLETE YES; EOS % 0.9 %; HEMATOCRIT 46.4 % (42-52); IG% 0.3 %; LYMPH % 9.3 %; LYMPH ABS # 0.65 K/uL (1.2-3.4); MEAN CELL VOLUME 90.1 fL (80-100); MEAN CORPUSCULAR HGB CONC 36.6 g/dl (32-36); MEAN PLATELET VOLUME 9.9 fL (7.4-10.4); MONO % 12.5 %; NEUT % 76.7 %; PLATELET COUNT 197 K/uL (130-400); RED BLOOD COUNT 5.15 M/uL (4.7-6.1); WHITE BLOOD COUNT 7.02 K/uL (4.8-10.8)
[2016-10-16] MEDS ORDERED: TYLER650 PO (11:08)
[2016-10-16] MEDS ORDERED: FERR28TA PO (11:08)
[2016-10-16] MEDS ORDERED: PLV75 PO (11:08)
[2016-10-16] MEDS ORDERED: CHOLTAB9 PO (11:08)
[2016-10-16] MEDS ORDERED: ACET1TAB84 PO (11:08)
[2016-10-16] MEDS ORDERED: MULT-573 PO (11:08)
[2016-10-16] MEDS ORDERED: FERR50TA3 PO (11:08)
[2016-10-16] MEDS ORDERED: ZLF/50 PO (11:08)
[2016-10-16 11:32] LABS: BLOOD UREA NITROGEN 20 mg/dl (7-18); BUN/CREATININE RATIO 21.6 (10-20); CARBON DIOXIDE 25 mmol/L (21-32); CHLORIDE 108 mmol/L (98-107); CREATININE 0.93 mg/dl (0.60-1.40); GLUCOSE 90 mg/dl (70-99); POTASSIUM 4.3 mmol/L (3.5-5.1); SODIUM 139 mmol/L (136-145)
[2016-10-16] MEDS ORDERED: WARFARIN SOD 5 MG TAB PO ONE (15:00)
--- NOTE | 2016-10-16 15:16 | CARDIOLOGY CONSULTATION ---
DATE OF CONSULTATION: 10/16/2016 DATE OF CONSULTATION: 10/16/2016 PROVIDER REQUESTING CONSULTATION: Dr. Carroll. HISTORY OF PRESENT ILLNESS: Isma Salcedo is a 65-year-old male seen in cardiology consultation in the Emergency Department per the request of Dr. Carroll. The patient is well known to the other undersigned as I follow him as an outpatient with last outpatient cardiology followup visit in June 2016. He states that today when he woke up he felt a little bit dizzy and short of breath. He therefore used his home blood pressure cuff to take his vital signs. His blood pressure was 80/60 which is his typical normal range recently. He noted, however, that his heart rate was elevated at 89 beats per minute and the machine gave him an indicator that his heart rate was irregular. This is different than his baseline heart rate in the 50-60 beat per minute range. The patient subsequently presented to the Emergency Department for further evaluation and was found to be in atrial fibrillation with well controlled ventricular rate in the 80-85 beat per minute range. His blood work has been negative. His hemoglobin is stable as is his kidney function and his troponin was negative x1 reading. His thyroid stimulating hormone is within normal limits. A D-dimer screen was negative. His chest x-ray revealed no acute cardiopulmonary process. In addition to the atrial fibrillation, the EKG revealed no evidence of acute ischemia. PAST MEDICAL HISTORY: 1. Coronary heart disease with remote inferior wall myocardial infarction in 1997 for which he underwent PCI to the right coronary artery with bare metal stent. 2. History of hypertension in the past; however, more recently he has had issues with relative low blood pressure. 3. Dyslipidemia. 4. Past history of morbid obesity, but he has had significant weight loss and this has improved significantly. 5. History of stage IV coccygeal ulcer for which he underwent surgical closure at [facility] within the last calendar year. PAST SURGICAL HISTORY: History of hip surgery and orthopedic shoulder surgery as well as coccygeal ulcer closure in March 2016 by plastic surgery. SOCIAL HISTORY: The patient had been a previous smoker for 25 years and quit 18 years ago. He denies alcohol use. 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 and lives independently. FAMILY HISTORY: Noncontributory. COMPREHENSIVE REVIEW OF SYSTEMS: Negative with the exception of that outlined above. HOME MEDICATIONS: Atenolol 25 mg by mouth 2 times per day, Wellbutrin 300 mg by mouth daily, Centrum Silver 1 tablet by mouth daily, clopidogrel 75 mg by mouth daily. Cardura 1 mg by mouth daily, enteric coated aspirin 81 mg by mouth daily, Feosol 325 mg by mouth daily, Crestor 20 mg by mouth daily, Zoloft 50 mg by mouth daily, Spiriva 18 mcg inhaled by mouth daily, vitamin D 1000 units by mouth daily. PHYSICAL EXAMINATION: VITAL SIGNS: Temperature 36.8, heart rate 85, blood pressure 80/58. GENERAL APPEARANCE: Awake and oriented x3, no acute distress. HEAD, EYES, EARS, NOSE, AND THROAT: Extraocular muscles were intact. Pupils equal and reactive to light. NECK: No bruits. No cervical lymphadenopathy. CARDIOVASCULAR: Irregular rhythm. No murmurs, rubs or gallops. ABDOMEN: Positive bowel sounds. Soft, nontender, nondistended. EXTREMITIES: No clubbing, cyanosis or edema. NEUROLOGIC: No focal deficits. PSYCHIATRIC: Appropriate affect and insight. EGD performed in July 2016 for indication of heme positive stool revealed nonbleeding erosive gastropathy. Colonoscopy 04/26/2016 nonthrombosed external hemorrhoids found on the perianal exam. Diverticulosis of the sigmoid colon and the descending colon. LABORATORY DATA: WBC 7, hemoglobin 17, platelet count 197. D-dimer is 330. Sodium 139, potassium 4.3, BUN 20, creatinine 0.93, troponin less than 0.015. TSH 3.06 micro international units per liter. Chest x-ray, no acute cardiopulmonary abnormality. EKG as outlined above. FINAL IMPRESSION: A 65-year-old male: 1. Newly diagnosed rate controlled atrial fibrillation. 2. History of coronary artery disease. 3. History of dyslipidemia. DISCUSSION AND RECOMMENDATIONS: The patient is minimally symptomatic to asymptomatic. He felt a little bit different today and that is what prompted him to recognize that his heart rate was abnormal at home. He feels fine and he is eager to be discharged from the Emergency Department. His vital signs are stable. I do have concerns; however, that he is at significant risk of stroke given his age of [age] years old and his history of vascular disease in the form of coronary artery disease and I feel that he would be best protected by stroke with the addition of systemic anticoagulation. He is currently on long-term dual antiplatelet therapy with aspirin and clopidogrel due to his remote inferior wall myocardial infarction. I think at this time it would be reasonable to discontinue his clopidogrel and transition him to aspirin plus a direct oral anticoagulant. I am in the process of calling his pharmacy to make sure that Eliquis would be a reasonable medication for him from an out of pocket cost standpoint. If Eliquis is affordable for him I will plan to start him at a dose of 5 mg by mouth 2 times per day with first dose now in the Emergency Department. The patient does have a history of heme positive stool. This was worked up earlier this year with EGD and colonoscopy results as noted above. His hemoglobin is stable at present and it was felt that his heme-positive stool is likely due to hemorrhoids and this has resolved. In terms of outpatient followup I am going to arrange for him to have an echocardiogram at our office as an outpatient and I will arrange followup with me or physician assistant professor of marine biology in approximately 2 weeks for further evaluation and consideration toward direct current cardioversion if necessary. For the meantime, we will continue rate control strategy with his current dose of atenolol. ADDENDUM, 10/16/16, 3:51 PM: I spoke to the pharmacist at [facility] that the patient had on file. His out of pocket copay for Eliquis for 60 day supply is > $100. This is actually the preferred agent in that class on his formulary. This will obviously cost prohibitive so I have instead prescribed coumadin. Updated plan: 1. Discontinue clopidogrel. 2. Continue ASA 81 mg daily. 3. Coumadin 5 mg by mouth daily, first dose in ED prior to discharge, then 5 mg daily until he establishes with [facility] anticoagulation clinic as outpatient in 2-3 days, on Tuesday or Tuesday. Anticoag referral and note placed in his [facility] outpatient chart. In future we may find that a DOAC is affordable with his [facility] pharmacy benefit , but this cannot be determined on a Tuesday, and I would prefer to start treatment sooner rather than wait. Case discussed at length with Dr Carroll in person and on the telephone. We provided the plan to the patient together at the bedside. REEMA
[2016-10-16 15:51] VITALS: BP 96/61; PULSE 96; TEMP 36.8; O2SAT 98
== END 2016-10-16 15:25 | disposition home or self-care (01) ==
LOC: C.EDB 10:07
DX: I48.91 Unspecified atrial fibrillation (principal); Z98.61 Coronary angioplasty status; E11.9 Type 2 diabetes mellitus without complications; I10 Essential (primary) hypertension; I25.10 Atherosclerotic heart disease of native coronary artery without angina pectoris; E78.5 Hyperlipidemia, unspecified; I25.2 Old myocardial infarction; Z87.891 Personal history of nicotine dependence; Z96.619 Presence of unspecified artificial shoulder joint; Z96.649 Presence of unspecified artificial hip joint; Z98.890 Other specified postprocedural states; Z82.49 Family history of ischemic heart disease and other diseases of the circulatory system; Z79.02 Long term (current) use of antithrombotics/antiplatelets; Z79.82 Long term (current) use of aspirin; Z79.899 Other long term (current) drug therapy

== ENCOUNTER 2018-08-14 08:06 | Inpatient (IN) ==
--- OUTSIDE RECORDS SUMMARY | 2018-08-14 09:36 | External Medical Summary | Continuity of Care Document ---
:1950 Author Name [employer] M.D., Provider Address Unavailable Unavailable , Care Team Providers Name Role Phone Unavailable Unavailable Unavailable PCP, UNKNOWN Unavailable Unavailable Problems Sacral osteomyelitis (730.28) (M46.28) Enterococcus faecalis infection (041.04) (B95.2) Allergies and Adverse Reactions No Known Drug Allergies (Allergy) Medications Augmentin TABS , M.D. Refills: 0 Levaquin TABS , M.D. Refills: 0 Atenolol TABS , M.D. Refills: 0 Aspirin 81 MG TABS , M.D. Refills: 0 Plavix TABS , M.D. Refills: 0 Crestor TABS , M.D. Refills: 0 Multi-Vitamin TABS , M.D. Refills: 0 Tylenol Arthritis Pain 8 Hour TBCR , M.D. Refills: 0 Vitamin D TABS , M.D. Refills: 0 Folic Acid CAPS , M.D. Refills: 0 Cardura TABS , M.D. Refills: 0 Procedures Procedures not documented Immunizations Immunizations not documented Family History Mother Family history of cerebrovascular accident (CVA) (V17.1) (Z8 2.3) Status: Active Social History - Smoking Status Former smoker Plan of Treatment Planned Observations Planned Goals not documented Results No Known Results Results not documented
[2018-08-14] MEDS ORDERED: ACETAMINOPHEN 325 MG TAB PO PRN (10:30)
[2018-08-14 10:34] LABS: Basophils # (auto) 0.04 K/uL (0-0.2); Basophils % (auto) 0.4 %; Eosinophils % (auto) 2.1 %; Hematocrit (blood only) 45.3 % (42-52); Hemoglobin 16.2 g/dL (14.0-18.0); Immature Granulocytes # (auto) 0.06 K/uL (0.00-0.02); Immature Granulocytes % (auto) 0.6 %; Lymphocytes # (auto) 1.11 K/uL (1.2-3.4); Lymphocytes % (auto) 11.7 %; Mean Corpuscular Volume 87.5 fL (80-100); Mean Platelet Volume 9.8 fL (7.4-10.4); Monocytes # (auto) 1.01 K/uL (0.11-0.59); Monocytes % (auto) 10.7 %; Neutrophils # (auto) 7.03 K/uL (1.4-6.5); Neutrophils % (auto) 74.5 %; Platelet Count 193 K/uL (130-400); RDW Coefficient of Variation 13.6 % (11.5-14.5); RDW Standard Deviation 43.1 fL (36.4-46.3); Red Blood Count 5.18 M/uL (4.7-6.1); White Blood Count 9.45 K/uL (4.8-10.8)
[2018-08-14 10:51] LABS: INR 1.8 (0.9-1.1); Mean Corpuscular Hgb Conc 35.8 g/dL (32-36); Prothrombin Time 17.7 Seconds (9.0-12.0)
[2018-08-14 10:57] LABS: Albumin Level 3.7 gm/dl (3.4-5.0); BUN Creatinine Ratio 16.1 (10-20); Calcium 9.3 mg/dl (8.5-10.1); Creatinine Clr Calc Pharmacy 82.5 ml/min; Est GFR (African American) 70.2; Est GFR (Non-African American) 60.5; Magnesium 2.2 mg/dl (1.8-2.4); Potassium 4.4 mmol/L (3.5-5.1)
[2018-08-14 11:00] LABS: Albumin Globulin Ratio 1.1 (0.9-2); Bilirubin,Total 0.5 mg/dl (0.2-1); Globulin 3.4 gm/dl (2.5-4.0); Total Protein 7.1 gm/dl (6.4-8.2)
[2018-08-14] MEDS ORDERED: Heparin IV Standard *NO* Bolus IV SCH (11:16)
[2018-08-14] MEDS ORDERED: NITROGLYCERIN SL 0.4 MG/TAB TAB SL PRN (11:32)
[2018-08-14] MEDS ORDERED: SODIUM CHLORIDE 0.65% NA SOLN 45 ML (OCEAN) PRN (11:38)
[2018-08-14] MEDS ORDERED: WARFARIN SOD 2.5 MG TAB PO STA (11:41)
[2018-08-14] MEDS ORDERED: HEPARIN 25000 UNIT/500 ML D5W IV ONE (11:42)
[2018-08-14] MEDS ORDERED: HEPARIN IV BOLUS 8,000 UNITS in SYRINGE 0 ML IV ONE (11:45)
--- NOTE | 2018-08-14 11:54 | History & Physical Report ---
Date of Service August 14, 2018 Assessment & Plan (1) Persistent atrial fibrillation: Recurrent symptomatic atrial fibrillation. He has had several trials of cardioversion but is reverted to sinus rhythm and therefore presents for elective initiation of the antiarrhythmic medication dofetilide. His renal function and electrolytes are stable to allow initiation of the medication. Corrected QT interval of 452 ms today is acceptable. We will continue his prior to hospital dose of atenolol which he took at home this morning. I have requested first-time dose of dofetilide 250 mg x 1 to be administered as soon as it arrives from the pharmacy, with next dose this evening at 2100. He is to have an EKG 2 hours after each dose of dofetilide to allow adjustment of the dose as necessary according to his QT interval. His INR is slightly below goal at 1.8 today. Review of recent outpatient INR levels revealed that his INR was 1.97 on 07/25/2018. His outpatient dose of Coumadin is 10 mg every Tuesday and , and 5 mg in the remaining days. He therefore took 10 mg yesterday morning, and already took 5 mg this morning prior to leaving home. I am going to order an additional 2.5 mg dose to be administered since possible. A heparin bridge, given anticipation of chemical cardioversion, for further stroke prophylaxis, and plan to repeat an INR tomorrow before further Coumadin dosing. (2) CAD (coronary artery disease): History of remote inferior wall myocardial infarction with PCI to the RCA 1997, bare-metal stent. Continue aspirin, atenolol, rosuvastatin. Nonischemic dobutamine stress echocardiogram in 2013. (3) Diabetes: Random nonfasting glucose this morning was 134. The patient is not on any oral medications at baseline and manages his diabetes weight. Therefore I do not believe he needs frequent fingerstick glucose readings or insulin coverage. (4) Hypertension: Continue prior to hospital dose of atenolol, Cardura, and furosemide. DVT prophylaxis-he is anticoagulated with Coumadin, and also heparin bridge has been ordered. Continue prior to hospital dosing of Wellbutrin for his history of depression. If this medication is not implicated in causing QT prolongation and it is therefore allowable in the setting of dofetilide treatment. 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 He had most recently been seen by the undersigned as an outpatient on 08/03/2018. He had undergone repeat direct-current cardioversion recently on 06/02/2018 and had been in sinus rhythm in June at the time of a cardiology follow-up, however in the meantime had reverted back to atrial fibrillation. He notes that his heart rate is irregular and notes shortness of breath with activity. His sensation of the irregular heartbeat is most prominent when he lays down to go to sleep at night. Allergies Allergy/AdvReac Type Severity Reaction Status Date / Time No Known Allergies Allergy Verified 05/18/18 12:53 Home Medications Home Medications Medication Instructions Recorded Confirmed Type Spiriva with HandiHaler 1 cap INHALATION DAILY 05/18/18 08/14/18 History Vitamin D3 1 dose PO BID 05/18/18 08/14/18 History aspirin 81 mg PO QAM 05/18/18 08/14/18 History atenolol 50 mg PO BID 05/18/18 08/14/18 History bupropion HCl [Wellbutrin XL] 150 mg PO QPM 05/18/18 08/14/18 History bupropion HCl [Wellbutrin XL] 300 mg PO QAM 05/18/18 08/14/18 History doxazosin [Cardura] 1 mg PO QPM 05/18/18 08/14/18 History ferrous sulfate [iron] 325 mg PO QAM 05/18/18 08/14/18 History folic acid 1 mg PO QAM 05/18/18 08/14/18 History furosemide 40 mg PO QAM 05/18/18 08/14/18 History multivitamin 1 tab PO QAM 05/18/18 08/14/18 History rosuvastatin 20 mg PO QPM 05/18/18 08/14/18 History warfarin 10 mg PO UD 05/18/18 08/14/18 History acetaminophen [Acetaminophen Pain 500 mg PO Q6H PRN 08/14/18 08/14/18 History Relief] albuterol sulfate 3 puff INHALATION Q6H PRN 08/14/18 08/14/18 History clotrimazole-betamethasone See Rx Instructions .ROUTE .COMPLEX 08/14/18 08/14/18 History [Lotrisone] coenzyme Q10 400 mg PO DAILY 08/14/18 08/14/18 History dofetilide [Tikosyn] 250 mcg PO Q12H 08/14/18 08/14/18 History nitroglycerin [Nitrostat] 0.4 mg SUBLINGUAL USEASDIRECTD PRN 08/14/18 08/14/18 History sodium chloride [Saline Nasal] See Rx Instructions .ROUTE 08/14/18 08/14/18 History .COMPLEX PRN triamcinolone acetonide 1 applic TOPICAL BID 08/14/18 08/14/18 History Past Med/Surg History Social History Preferred Language: Korean Communication Ability: Effective Practice Director Required: No Beliefs That Will Affect Care: None Current Living Situation: Alone Other Information That Helps Us Care for You: No Feels Safe at Home: Yes Safety Concerns: Feels Safe At This Time Smoking Status: Former smoker Second Hand Exposure: No Hx Alcohol Use: No Hx Substance Use: No Review of Systems Review of Systems: All systems reviewed & are unremarkable except as noted in HPI & below Physical Exam Constitutional: + morbidly obese; no acute distress Neck: trachea midline, no thyromegaly Respiratory: normal respiratory effort, lungs clear to auscultation Cardiovascular: Irregular rhythm, no murmur, no jugular venous distention, no lower extremity edema Gastrointestinal (Abdomen): normal bowel sounds, soft, nontender, no hepatosplenomegaly Musculoskeletal: no cyanosis or clubbing, extremities motor strength 5/5 Skin: no rashes, warm and dry Neurologic: PERRL, EOMI, accommodation nl, no face palsy, no dysarthria Results & Data Vital Signs (Past 12 Hours) Vital Signs Temp Resp BP Pulse Ox 08/14/18 10:00 36.4 C L 16 109/66 95 Laboratory Results Cardiac Enzymes 08/14/18 Range/Units 10:26 AST 22 (15-37) U/L Coagulation 08/14/18 Range/Units 10:26 PT 17.7 H (9.0-12.0) Seconds CBC 08/14/18 Range/Units 10:26 WBC 9.45 (4.8-10.8) K/uL RBC 5.18 (4.7-6.1) M/uL Hgb 16.2 (14.0-18.0) g/dL Hct 45.3 (42-52) % Plt Count 193 (130-400) K/uL Neut # (Auto) 7.03 H (1.4-6.5) K/uL Lymph # (Auto) 1.11 L (1.2-3.4) K/uL [place] # (Auto) 1.01 H (0.11-0.59) K/uL Eos # (Auto) 0.20 (0-0.5) K/uL Baso # (Auto) 0.04 (0-0.2) K/uL Comprehensive Metabolic Panel 08/14/18 Range/Units 10:26 Sodium 143 (136-145) mmol/L Potassium 4.4 (3.5-5.1) mmol/L Chloride 106 (98-107) mmol/L Carbon Dioxide 29 (21-32) mmol/L BUN 20 H (7-18) mg/dl Creatinine 1.22 (0.6-1.4) mg/dl Glucose 134 H (70-99) mg/dl Calcium 9.3 (8.5-10.1) mg/dl AST 22 (15-37) U/L ALT 29 (12-78) U/L Alkaline Phosphatase 74 (45-117) U/L Total Protein 7.1 (6.4-8.2) gm/dl Albumin 3.7 (3.4-5.0) gm/dl Intake and Output 08/13/18 08/14/18 08/14/18 22:59 06:59 14:59 Other: Weight 149 kg Patient Weight 08/15/18 06:59 Weight 149 kg Diagnostic Findings EKG performed today 08/14/2018 at 10:25 AM and reviewed independently revealed atrial fibrillation at 92 bpm with corrected QT interval of 452 ms. Compared to the prior EKG in the hospital dated 06/02/2018, atrial fibrillation has replaced sinus rhythm.
[2018-08-14] MEDS: Heparin Adult STANDARD Wt-Based Dextrose 5% 25,000 units/500 mL IV SCH (12:01)
[2018-08-14] MEDS: DOFETILIDE 125 MCG CAPSULE PO SCH ×2 (12:09→20:46)
--- NOTE | 2018-08-14 14:42 | Cardiology Progress Note ---
Date of Service August 14, 2018 Subjective Patient reassessed. Feeling well. EKG performed at 14: 14 ,2 hours post first dose of dofetilide. Stable atrial fibrillation 80 bpm with corrected QT interval of 472 ms noted. Compared to the prior EKG performed this morning at 1025, the QT interval at that time was 452 ms. Continue present treatment of dofetilide without change in dose of 250 mg. Results & Data Vital Signs (Past 12 Hours) Vital Signs Temp Pulse Resp BP BP Pulse Ox 08/14/18 12:28 36.8 C 81 20 95/52 L 95 08/14/18 10:00 36.4 C L 16 109/66 95
[2018-08-14 18:38] LABS: Partial Thromboplastin Ratio 3.9
[2018-08-14 18:40] LABS: Partial Thromboplastin Time 106.1 Seconds (21.0-31.0)
[2018-08-14] MEDS: ATENOLOL 25 MG TABLET PO SCH (20:45)
[2018-08-14] MEDS: DOXAZOSIN MESYLATE 1 MG TAB PO SCH (20:46)
[2018-08-14] MEDS: ROSUVASTATIN CALCIUM 20 MG TAB PO SCH (20:46)
[2018-08-14] MEDS: BuPROPion XL 150 MG TABCR PO SCH (20:46)
[2018-08-15 01:12] LABS: Partial Thromboplastin Ratio 3.9
[2018-08-15 01:15] LABS: Partial Thromboplastin Time 106.5 Seconds (21.0-31.0)
[2018-08-15] MEDS: Heparin Adult STANDARD Wt-Based Dextrose 5% 25,000 units/500 mL IV SCH (05:08)
--- NOTE | 2018-08-15 06:48 | Cardiology Progress Note ---
Date of Service August 15, 2018 Subjective EKG from 2300 last evening reviewed. QT > 500 ms. Will hold am dose of dofetilide and repeat EKG. Results & Data Vital Signs (Past 12 Hours) Vital Signs Temp Pulse Pulse Resp BP Pulse Ox 08/15/18 02:27 36.5 C 92 H 19 110/71 96 08/15/18 00:13 36.5 C 90 19 105/52 L 96 08/14/18 23:41 94 H 08/14/18 20:07 36.6 C 81 18 105/64 93
[2018-08-15 07:45] LABS: INR 1.9 (0.9-1.1); Prothrombin Time 18.5 Seconds (9.0-12.0)
[2018-08-15] MEDS ORDERED: WARFARIN SOD 7.5 MG TAB PO STA (07:50)
--- NOTE | 2018-08-15 07:52 | Cardiology Progress Note ---
Date of Service August 15, 2018 Assessment & Plan (1) Persistent atrial fibrillation: Dofetilide is on hold having an interval prolongation of the QT interval to 525 ms after the dose last evening. Repeat EKG this morning reveals corrected QT interval of 492 ms. This measurement however is difficult to interpret in the setting of the a regular R to R interval of atrial fibrillation. Await electrolyte results. INR is still slightly below the therapeutic range at 1.9. Continue heparin sha dge, Coumadin 7.5 mg this morning. Will consider proceeding with transesophageal echocardiogram guided cardioversion later this morning, this will be helpful in terms of determining the patient's QT interval when he is in sinus rhythm and therefore adjusting his antiarrhythmic therapy accordingly, with either a dose change in the dofetilide, or an alternative agent. Because the INR has been slightly subtherapeutic, transesophageal echocardiogram necessary for risk stratification. Patient is n.p.o. with exception of medications with sips of water. I was able to discuss things with him before he started his breakfast tray. Subjective Chief complaint: Follow-up palpitations Subjective: Patient remains in rate controlled atrial fibrillation. EKG performed last evening 2 hours after the dofetilide dose revealed interval prolongation of the QT interval to 525 ms. Repeat EKG this morning reveals improved QT interval to 492 ms. Review of Systems Review of Systems: All systems reviewed & are unremarkable except as noted in HPI & below Physical Exam Physical Exam: General: no acute distress and stated age Eyes: conjunctiva are pink and non-injected, sclera clear Neck: normal jugular venous pulse, no hepatojugular reflux Chest: normal shape and normal respiratory effort Lungs: clear to auscultation and percussion Cardiac Exam: -Irregular rhythm, no murmurs Abdomen: abdomen soft, non-tender, no abnormal masses and no hepatosplenomegaly Musculoskeletal: no gait disturbance, no weakness Extremities: no edema and no cyanosis Neuro:awake, coversant, follows commands, no focal motor deficits Psych: appropriate affect and insight. Results & Data Vital Signs (Past 12 Hours) Vital Signs Temp Pulse Pulse Resp BP Pulse Ox 08/15/18 02:27 36.5 C 92 H 19 110/71 96 08/15/18 00:13 36.5 C 90 19 105/52 L 96 08/14/18 23:41 94 H 06/10/19 20:07 36.6 C 81 18 105/64 93
[2018-08-15 07:57] LABS: Partial Thromboplastin Ratio 2.8
[2018-08-15 08:13] LABS: Partial Thromboplastin Time 77.2 Seconds (21.0-31.0)
[2018-08-15 08:17] LABS: BUN Creatinine Ratio 19.8 (10-20); Calcium 8.8 mg/dl (8.5-10.1); Est GFR (African American) 93.8; Est GFR (Non-African American) 80.9; Potassium 3.7 mmol/L (3.5-5.1)
[2018-08-15] MEDS: FERROUS SULFATE 325 MG TAB PO SCH (08:17)
[2018-08-15] MEDS: BuPROPion XL 300 MG TABCR PO SCH (08:17)
[2018-08-15] MEDS: FUROSEMIDE 40 MG TAB PO SCH (08:17)
[2018-08-15] MEDS: MULTIVITAMIN TAB PO SCH (08:17)
[2018-08-15] MEDS: FOLIC ACID 1 MG TAB PO SCH (08:17)
[2018-08-15] MEDS: ASPIRIN 81 MG ECTAB PO SCH (08:18)
[2018-08-15] MEDS: ATENOLOL 25 MG TABLET PO SCH ×2 (08:18→20:36)
[2018-08-15] MEDS: TIOTROPIUM BROMIDE 5 PUFF/90 MCG INH INH SCH (08:27)
[2018-08-15] MEDS ORDERED: PROPOFOL IV EMULSION 10 MG/ML 20 ML VIAL IV ONE (09:00)
[2018-08-15] MEDS ORDERED: NON-FORMULARY MEDICATION (Coenzyme Q10 400 MG) PO SCH (09:00)
[2018-08-15] MEDS ORDERED: LIDOCAINE HCL 2% MPF (LOCAL) 5 ML VIAL INFIL ONE (09:01)
--- NOTE | 2018-08-15 09:01 | Anesthesiology Consultation ---
Date of Service August 15, 2018 Assessment & Plan (1) Encounter for pre-operative examination: Chart Review Chart Review: Acceptable Risk for Surgery Consults Requested none ASA ASA3 Proposed Anesthesia Anesthesia Type: MAC Risk / Benefits Reviewed With: PT / POA / Parent / Guardian, Accepts Plan and Informed Consent Obtained History Surgery Operation Date: 08/15/18 09:00 Proposed Procedures p Transesophageal Echo w/Anesthesia - Ta Chi DO Height/Weight Height: 5 ft 8 in Weight: 149.3 kg Allergies Allergy/AdvReac Type Severity Reaction Status Date / Time No Known Allergies Allergy Verified 05/18/18 12:53 Medications Home Medications Medication Instructions Recorded Confirmed Last Taken Spiriva with HandiHaler 1 cap INHALATION DAILY 05/18/18 08/14/18 Unknown Vitamin D3 1 dose PO BID 05/18/18 08/14/18 Unknown aspirin 81 mg PO QAM 05/18/18 08/14/18 Unknown atenolol 50 mg PO BID 05/18/18 08/14/18 Unknown bupropion HCl [Wellbutrin XL] 150 mg PO QPM 05/18/18 08/14/18 Unknown bupropion HCl [Wellbutrin XL] 300 mg PO QAM 05/18/18 08/14/18 Unknown doxazosin [Cardura] 1 mg PO QPM 05/18/18 08/14/18 Unknown ferrous sulfate [iron] 325 mg PO QAM 05/18/18 08/14/18 Unknown folic acid 1 mg PO QAM 05/18/18 08/14/18 Unknown furosemide 40 mg PO QAM 05/18/18 08/14/18 Unknown multivitamin 1 tab PO QAM 05/18/18 08/14/18 Unknown rosuvastatin 20 mg PO QPM 05/18/18 08/14/18 Unknown warfarin 10 mg PO UD 05/18/18 08/14/18 Unknown acetaminophen [Acetaminophen Pain 500 mg PO Q6H PRN 08/14/18 08/14/18 Unknown Relief] albuterol sulfate 3 puff INHALATION Q6H PRN 08/14/18 08/14/18 Unknown clotrimazole-betamethasone See Rx Instructions .ROUTE .COMPLEX 08/14/18 08/14/18 Unknown [Lotrisone] coenzyme Q10 400 mg PO DAILY 08/14/18 08/14/18 Unknown dofetilide [Tikosyn] 250 mcg PO Q12H 08/14/18 08/14/18 Unknown nitroglycerin [Nitrostat] 0.4 mg SUBLINGUAL USEASDIRECTD PRN 08/14/18 08/14/18 Unknown sodium chloride [Saline Nasal] See Rx Instructions .ROUTE 08/14/18 08/14/18 Unknown .COMPLEX PRN triamcinolone acetonide 1 applic TOPICAL BID 08/14/18 08/14/18 Unknown Active Medications Generic Name Dose Route Start Last Admin Trade Name Freq PRN Reason Stop Dose Admin Aspirin 81 mg 08/15/18 09:00 08/15/18 08:18 Ecotrin Ectab PO 09/14/18 08:59 81 mg QAM STEPHANIE Administration Atenolol 50 mg 08/14/18 21:00 08/15/18 08:18 Tenormin PO 09/13/18 20:59 50 mg BID STEPHANIE Administration Bupropion HCl 300 mg 08/15/18 09:00 08/15/18 08:17 Wellbutrin-Xl PO 09/14/18 08:59 300 mg QAM STEPHANIE Administration Bupropion HCl 150 mg 08/14/18 21:00 08/14/18 20:46 Wellbutrin-Xl PO 09/13/18 20:59 150 mg QPM STEPHANIE Administration Doxazosin Mesylate 1 mg 08/14/18 21:00 08/14/18 20:46 Cardura PO 09/13/18 20:59 1 mg QPM STEPHANIE Administration Ferrous Sulfate 325 mg 08/15/18 09:00 08/15/18 08:17 Feosol PO 09/14/18 08:59 325 mg QAM STEPHANIE Administration Folic Acid 1 mg 08/15/18 09:00 08/15/18 08:17 Folvite PO 09/14/18 08:59 1 mg QAM STEPHANIE Administration Furosemide 40 mg 08/15/18 09:00 08/15/18 08:17 Lasix PO 09/14/18 08:59 40 mg QAM STEPHANIE Administration Heparin Sodium/Dextrose 25,000 units in 500 mls @ 24 mls/hr 08/14/18 11:45 08/15/18 08:31 Heparin Sodium/Dextrose IV 09/13/18 11:44 1,200 units/hr .[id number] STEPHANIE 24 mls/hr Titration Protocol 1,200 UNITS/HR Multivitamins 1 tab 08/15/18 09:00 08/15/18 08:17 Multivitamin Tab PO 09/14/18 08:59 1 tab QAM STEPHANIE Administration Rosuvastatin Calcium 20 mg 08/14/18 21:00 08/14/18 20:46 Crestor PO 09/13/18 20:59 20 mg QPM STEPHANIE Administration Tiotropium [place] 1 puffs 08/15/18 09:00 08/15/18 08:27 Spiriva INH 09/14/18 08:59 1 puffs DAILY STEPHANIE Administration Exercise / Class Metabolic Activity III < 4 Walking/Shop/Light housework Past Anesthesia History No Hx of Anesthesia Complications and No Family Hx of Anesthesia Complications History of PONV No Hx of PONV and No Hx of Motion Sickness Social History Smoking Status: Former smoker Hx Alcohol Use: No Hx Substance Use: No substance use type: does not use Physical Exam Vital Signs Last Vital Signs Temp 97.7 F 08/15/18 02:27 Pulse 92 H 08/15/18 02:27 Resp 19 08/15/18 02:27 BP 95/64 L 08/15/18 08:19 Pulse Ox 96 08/15/18 02:27 ENMT Mouth: + dental restorations Thyromental Distance: > or= 3.5 Finger Breadths Mallampati Class: III Neck normal visual inspection and + limited neck extension Respiratory normal respiratory effort Auscultation: lungs clear to auscultation bilaterally Cardiovascular Rate/Rhythm: + abnormal rate and + abnormal rhythm Testing Laboratory Results 08/14/18 10:26 08/15/18 07:19 08/14/18 08/14/18 08/15/18 10:26 18:00 00:37 PT 17.7 H INR 1.8 H APTT 106.1 H* 106.5 H* 08/15/18 08/15/18 07:19 07:19 PT 18.5 H INR 1.9 H APTT 77.2 H* Electrocardiogram Date: 08/15/18 Atrial fibrillation, rate 95 bpm Low voltage QRS Prolonged QT Abnormal ECG When compared with ECG of 14-AUG-2018 23:13, (unconfirmed) No significant change was found Echocardiogram Date: 05/23/18 EF: 55-59% LV Function: normal RWMA: + none Valvular Disease: + no significant valvular disease RV is poorly visualized, appears borderline dilated LA is mildly enlarged
--- NOTE | 2018-08-15 09:55 | Post Operative Brief Note ---
Cardiology Brief Post Op Date of Surgery August 15, 2018 Pre & Post Diagnosis Preoperative diagnosis: Symptomatic atrial fibrillation, subtherapeutic INR, prolonged QT interval Post procedure diagnosis: no left atrial or left atrial appendage thrombus, successful conversion to sinus rhythm Operation Date: 08/15/18 09:00 Procedure MARINA guided direct current cardioversion procedure note: After informed consent was obtained and a timeout was performed, the patient was sedated with the assistance of the anesthesia team receiving 140 mg of IV propofol, 40 mg of IV lidocaine. Focussed MARINA revealed no LA, KEHINDE thrombus. Patient then underwent DCCV receiving 300 J of biphasic energy, however remained in AF. A second dose of 360 J of biphasic energy delivered with successful conversion to SR. Heparin infusion continued through the procedure. Plan: repeat EKG now that the patient is in SR, and assess QTc. Coumadin, 7.5 mg this am. Heel Buffer DO Assistant Forest Zhang Estimated Blood Loss 0 Findings Consistent with Post-Op Diagnosis
--- NOTE | 2018-08-15 09:59 | Cardioversion ---
Date of Service August 15, 2018 Electrical Cardioversion Rpt Electrical Cardioversion Report Date of Surgery August 15, 2018 Pre & Post Diagnosis Preoperative diagnosis: Symptomatic atrial fibrillation, subtherapeutic INR, prolonged QT interval Post procedure diagnosis: no left atrial or left atrial appendage thrombus, successful conversion to sinus rhythm Operation Date: 08/15/18 09:00 Procedure MARINA guided direct current cardioversion procedure note: After informed consent was obtained and a timeout was performed, the patient was sedated with the assistance of the anesthesia team receiving 140 mg of IV propofol, 40 mg of IV lidocaine. Focussed MARINA revealed no LA, KEHINDE thrombus. Patient then underwent synchronized DCCV receiving 300 J of biphasic energy, however remained in AF. A second dose of 360 J of biphasic energy delivered with successful conversion to SR. Heparin infusion continued through the procedure. Plan: EKG performed post procedure revealed SR at 62 with first degree AVB. QTC had improved to 460 ms. Coumadin, 7.5 mg this am. Resume dofetilide at lower dose, 125 mg BID. Repeat EKG 2 hours post dofetilide dose. Medical Record Assistant DO Assistant Forest Zhang Estimated Blood Loss 0 Findings Consistent with Post-Op Diagnosis
[2018-08-15] MEDS: DOFETILIDE 125 MCG CAPSULE PO SCH ×2 (10:07→20:36)
--- NOTE | 2018-08-15 10:26 | Anesthesiology Progress Note ---
Date of Service August 15, 2018 Anesthesia Post Procedure Vital Signs Vital Signs: Temp Pulse Pulse Resp BP Pulse Ox 08/15/18 10:10 97.5 F L 63 18 88/56 L 95 08/15/18 08:19 95/64 L 08/15/18 02:27 97.7 F 92 H 19 110/71 96 08/15/18 00:13 97.7 F 90 19 105/52 L 96 08/14/18 23:41 94 H 08/14/18 20:07 97.9 F 81 18 105/64 93 08/14/18 15:10 97.7 F 82 18 119/59 L 97 08/14/18 12:28 98.2 F 81 20 95/52 L 95 Transfer of Care Handoff Completed per policy Notes Mental Status: alert / awake / arousable and participated in evaluation Patient Amnestic to Procedure: Yes Nausea / Vomiting: adequately controlled Pain: adequately controlled Airway Patency, RR, SpO2: stable & adequate BP & HR: stable & adequate Hydration State: stable & adequate Anesthetic Complications: no major complications apparent and Pt Satisfied with anesthetic care
--- NOTE | 2018-08-15 12:35 | Communication Note ---
Date of Service: August 15, 2018 Repeat EKG performed 1225, 2 hours post dofetilide 125 mcg, equal sinus rhythm, corrected QT interval 489 ms. This is less than 500 ms, but is still concerning. At this time, will continue loading of dofetilide 125 mcg , next dose 2100 with EKG at 2300 and will reassess QTc at that time.
[2018-08-15 14:26] LABS: INR 1.9 (0.9-1.1); Partial Thromboplastin Ratio 2.4; Prothrombin Time 18.6 Seconds (9.0-12.0)
[2018-08-15 14:37] LABS: Partial Thromboplastin Time 64.6 Seconds (21.0-31.0)
[2018-08-15] MEDS: DOXAZOSIN MESYLATE 1 MG TAB PO SCH (20:36)
[2018-08-15] MEDS: ROSUVASTATIN CALCIUM 20 MG TAB PO SCH (20:36)
[2018-08-15] MEDS: BuPROPion XL 150 MG TABCR PO SCH (20:37)
[2018-08-16] MEDS: Heparin Adult STANDARD Wt-Based Dextrose 5% 25,000 units/500 mL IV SCH (03:14)
[2018-08-16 06:53] LABS: INR 2.1 (0.9-1.1); Partial Thromboplastin Ratio 2.2; Prothrombin Time 20.4 Seconds (9.0-12.0)
[2018-08-16 06:58] LABS: Partial Thromboplastin Time 58.6 Seconds (21.0-31.0)
[2018-08-16] MEDS ORDERED: WARFARIN SOD 7.5 MG TAB PO ONE (07:03)
[2018-08-16 07:05] LABS: Calcium 8.7 mg/dl (8.5-10.1); Creatinine Clr Calc Pharmacy 102.7 ml/min; Est GFR (African American) 91.4; Est GFR (Non-African American) 78.9; Potassium 3.8 mmol/L (3.5-5.1)
[2018-08-16] MEDS: FUROSEMIDE 40 MG TAB PO SCH (08:54)
[2018-08-16] MEDS: DOFETILIDE 125 MCG CAPSULE PO SCH ×2 (08:54→20:30)
[2018-08-16] MEDS: FOLIC ACID 1 MG TAB PO SCH (08:54)
[2018-08-16] MEDS: FERROUS SULFATE 325 MG TAB PO SCH (08:54)
[2018-08-16] MEDS: ASPIRIN 81 MG ECTAB PO SCH (08:55)
[2018-08-16] MEDS: TIOTROPIUM BROMIDE 5 PUFF/90 MCG INH INH SCH (08:55)
[2018-08-16] MEDS: MULTIVITAMIN TAB PO SCH (08:55)
[2018-08-16] MEDS: ATENOLOL 25 MG TABLET PO SCH ×2 (09:00→20:29)
--- NOTE | 2018-08-16 09:20 | Cardiology Progress Note ---
Date of Service August 16, 2018 Assessment & Plan (1) Persistent atrial fibrillation: EKG not performed after dose of dofetilide last night. Therefore performed one this am with stable findings. Chemistry panel reveals stable kidney function and electrolytes. INR 2.1 today. Rhythm control: Continue dofetilide 125 mcg BID, atenolol 50 mg BID. Stroke prophylaxis: INR 2.1. Heparin DC'd. Continue coumadin 7.5 mg , dose this am. Subjective CC: follow up palpitations, exertional shortness of breath due to atrial fibrillation. Subjective: Patient rested well overnight. Denies palpitations. Telemetry reveals stable SR post cardioversion yesterday with occasional isolated unifocal PVCs. Review of Systems Review of Systems: All systems reviewed & are unremarkable except as noted in HPI & below Physical Exam Constitutional: no acute distress Respiratory: normal respiratory effort, lungs clear to auscultation Cardiovascular: RRR, no murmur, no edema Heart Sounds: no murmur Vessels: no JVD Chest (Breasts): normal inspection/palpation of breasts Gastrointestinal (Abdomen): normal bowel sounds, soft, nontender, no hepatosplenomegaly Skin: no rashes, warm and dry Neurologic: PERRL, EOMI, accommodation nl, no face palsy, no dysarthria moves all extremities; no focal motor deficits Results & Data Vital Signs (Past 12 Hours) Vital Signs Temp Pulse Pulse Resp BP Pulse Ox 08/16/18 08:00 69 18 98/64 L 94 08/16/18 04:45 37.0 C 62 20 110/64 95 08/16/18 00:49 61 08/15/18 23:36 36.3 C L 62 20 102/64 96 Laboratory Results Coagulation INR 2.1 08/15/18 08/15/18 08/16/18 Range/Units 13:48 13:48 05:54 PT Cancelled 18.6 H 20.4 H APTT 64.6 H* 58.6 H* (21.0-31.0) Seconds Comprehensive Metabolic Panel 08/16/18 Range/Units 05:54 Sodium 138 (136-145) mmol/L Potassium 3.8 (3.5-5.1) mmol/L Chloride 106 (98-107) mmol/L Carbon Dioxide 27 (21-32) mmol/L BUN 16 (7-18) mg/dl Creatinine 0.98 (0.6-1.4) mg/dl Glucose 119 H (70-99) mg/dl Calcium 8.7 (8.5-10.1) mg/dl Intake and Output 08/15/18 08/16/18 08/16/18 22:59 06:59 14:59 Intake Total 400 / 860.000 365.267 / 860.000 90.8 / 90.8 Output Total 150 / 826 826 Balance 250 / 34.000 364.267 / 34.000 90.8 / 90.8 Intake: IV 160 / 500.000 245.267 / 500.000 90.8 / 90.8 HEPARIN SODIUM/DEXTROSE 25,000 160 / 500.000 245.267 / 500.000 90.8 / 90.8 units In 500 ml @ 1,200 UNITS/ HR 24 mls/hr IV .[id number] [facility] Rx #:[id number] Oral 240 / 360 120 / 360 Output: Urine 150 / 826 Other: # Unmeasured Voids 150 Weight 149 kg Coagulation 08/15/18 08/15/18 08/16/18 Range/Units 13:48 13:48 05:54 PT Cancelled 18.6 H 20.4 H APTT 64.6 H* 58.6 H* (21.0-31.0) Seconds Comprehensive Metabolic Panel 08/16/18 Range/Units 05:54 Sodium 138 (136-145) mmol/L Potassium 3.8 (3.5-5.1) mmol/L Chloride 106 (98-107) mmol/L Carbon Dioxide 27 (21-32) mmol/L BUN 16 (7-18) mg/dl Creatinine 0.98 (0.6-1.4) mg/dl Glucose 119 H (70-99) mg/dl Calcium 8.7 (8.5-10.1) mg/dl Intake and Output 08/15/18 08/16/18 08/16/18 22:59 06:59 14:59 Intake Total 400 / 860.000 365.267 / 860.000 90.8 / 90.8 Output Total 150 / 826 826 Balance 250 / 34.000 364.267 / 34.000 90.8 / 90.8 Intake: IV 160 / 500.000 245.267 / 500.000 90.8 / 90.8 HEPARIN SODIUM/DEXTROSE 25,000 160 / 500.000 245.267 / 500.000 90.8 / 90.8 units In 500 ml @ 1,200 UNITS/ HR 24 mls/hr IV .[id number] [facility] Rx #:[id number] Oral 240 / 360 120 / 360 Output: Urine 150 / 826 1 / 826 Other: # Unmeasured Voids 150 Weight 149 kg Diagnostic Findings EKG this am prior to dofetilide: SR with first degree AV block, QTC 479 ms. Medications Administered Current Inpatient Medications Acetaminophen (Tylenol) 650 mg PO Q4H PRN PRN Reason: Pain or Fever Stop: 09/13/18 10:29 Aspirin (Ecotrin Ectab) 81 [facility] [place] Stop: 09/14/18 08:59 Last Admin: 08/16/18 08:55 Dose: 81 mg Documented by: Atenolol (Tenormin) 50 mg PO BID [facility] Stop: 09/13/18 20:59 Last Admin: 08/16/18 09:00 Dose: Not Given Documented by: Bupropion HCl (Wellbutrin-Xl) 300 mg PO QAM [facility] Stop: 09/14/18 08:59 Last Admin: 08/15/18 08:17 Dose: 300 mg Documented by: Bupropion HCl (Wellbutrin-Xl) 150 mg PO QPM [facility] Stop: 09/13/18 20:59 Last Admin: 08/15/18 20:37 Dose: 150 mg Documented by: Dofetilide (Tikosyn) 125 mcg PO BID [facility] Stop: 09/14/18 09:59 Last Admin: 08/16/18 08:54 Dose: 125 mcg Documented by: Doxazosin Mesylate (Cardura) 1 mg PO QPM [facility] Stop: 09/13/18 20:59 Last Admin: 08/15/18 20:36 Dose: 1 mg Documented by: Ferrous Sulfate (Feosol) 325 mg PO QAM [facility] Stop: 09/14/18 08:59 Last Admin: 08/16/18 08:54 Dose: 325 mg Documented by: Folic Acid (Folvite) 1 mg PO QAM [facility] Stop: 09/14/18 08:59 Last Admin: 08/16/18 08:54 Dose: 1 mg Documented by: Furosemide (Lasix) 40 mg PO [facility] Stop: 09/14/18 08:59 Last Admin: 08/16/18 08:54 Dose: 40 mg Documented by: Multivitamins (Multivitamin Tab) 1 tab PO QAM [facility] Stop: 09/14/18 08:59 Last Admin: 08/16/18 08:55 Dose: 1 tab Documented by: Nitroglycerin (Nitrostat) 0.4 mg SL UD PRN PRN Reason: Chest Pain Stop: 09/13/18 11:31 Rosuvastatin Calcium (Crestor) 20 mg PO QPM [facility] Stop: 09/13/18 20:59 Last Admin: 08/15/18 20:36 Dose: 20 mg Documented by: Sodium Chloride ([place] Nasal) 1 sprays NA BID PRN PRN Reason: Congestion Stop: 09/13/18 11:37 Tiotropium [place] (Spiriva) 1 puffs INH DAILY [facility] Stop: 09/14/18 08:59 Last Admin: 08/16/18 08:55 Dose: 1 puffs Documented by:
[2018-08-16] MEDS ORDERED: ATENOLOL 50 MG TABLET PO ONE (09:42)
[2018-08-16] MEDS: BuPROPion XL 300 MG TABCR PO SCH (10:30)
--- NOTE | 2018-08-16 12:35 | Anesthesiology Progress Note ---
Date of Service August 16, 2018 Anesthesia Post Procedure Vital Signs Vital Signs: Temp Pulse Pulse Resp BP Pulse Ox 08/16/18 11:14 36.5 C 72 20 105/58 L 97 08/16/18 08:00 69 18 98/64 L 94 08/16/18 04:45 37.0 C 62 20 110/64 95 08/16/18 00:49 61 08/15/18 23:36 36.3 C L 62 20 102/64 96 08/15/18 19:23 36.8 C 78 18 95/59 L 92 08/15/18 16:00 67 08/15/18 15:09 36.4 C L 73 18 100/56 L 94 Notes Mental Status: alert / awake / arousable and participated in evaluation Nausea / Vomiting: adequately controlled Pain: adequately controlled Airway Patency, RR, SpO2: stable & adequate BP & HR: stable & adequate Hydration State: stable & adequate
--- NOTE | 2018-08-16 13:00 | Communication Note ---
Date of Service: August 16, 2018 11 AM EKG reviewed, 2 hours post dofetilide 125 mcg dose. Sinus rhythm, rate 69 BPM first-degree AV block IN interval 212 ms ,QRS duration 90 ms ,QT/QTc 440/471. Stable compared to prior corrected QT interval of 479 ms earlier today. Continue current dose of dofetilide and atenolol.
[2018-08-16] MEDS: ROSUVASTATIN CALCIUM 20 MG TAB PO SCH (20:29)
[2018-08-16] MEDS: DOXAZOSIN MESYLATE 1 MG TAB PO SCH (20:29)
[2018-08-16] MEDS: BuPROPion XL 150 MG TABCR PO SCH (20:30)
[2018-08-17 06:02] LABS: INR 2.5 (0.9-1.1); Prothrombin Time 23.8 Seconds (9.0-12.0)
[2018-08-17] MEDS ORDERED: WARFARIN SOD 7.5 MG TAB PO STA (08:10)
[2018-08-17] MEDS: MULTIVITAMIN TAB PO SCH (08:40)
[2018-08-17] MEDS: FERROUS SULFATE 325 MG TAB PO SCH (08:40)
[2018-08-17] MEDS: FUROSEMIDE 40 MG TAB PO SCH (08:40)
[2018-08-17] MEDS: ATENOLOL 25 MG TABLET PO SCH (08:40)
[2018-08-17] MEDS: ASPIRIN 81 MG ECTAB PO SCH (08:41)
[2018-08-17] MEDS: FOLIC ACID 1 MG TAB PO SCH (08:41)
[2018-08-17] MEDS: DOFETILIDE 125 MCG CAPSULE PO SCH (08:41)
[2018-08-17] MEDS: TIOTROPIUM BROMIDE 5 PUFF/90 MCG INH INH SCH (08:42)
[2018-08-17] MEDS: BuPROPion XL 300 MG TABCR PO SCH (10:25)
--- NOTE | 2018-08-17 13:07 | Cardiology Progress Note ---
Date of Service August 17, 2018 Assessment & Plan (1) Persistent atrial fibrillation: Patient in stable sinus rhythm. The patient has been observed to have had QT prolongation with administration of dofetilide, prompting reduction in the dose from 250 mcg, to 125 mcg q. 12. The patient's baseline sinus rhythm corrected QT interval on historical sinus rhythm EKGs was in the range of 440 to 455 ms. The current increase is less than 15%, and his pretty QT interval on his current dose is less than 500 ms. He has had occasional unifocal single PVCs, without any observation of ventricular arrhythmias. His renal function is normal based on laboratory studies this hospital stay. Echocardiogram performed as an outpatient in May, while in atrial fibrillation revealed normal LVEF. Plan to discharge the patient on dofetilide 125 mcg every 12 hours, along with atenolol, and Coumadin 7.5 mg daily. Subjective Chief complaint: follow up palpitations Subjective: Patient feeling well. Telemetry reveals stable SR. Physical Exam Physical Exam: General: no acute distress and stated age Eyes: conjunctiva are pink and non-injected, sclera clear Neck: normal jugular venous pulse, no hepatojugular reflux Chest: normal shape and normal respiratory effort Lungs: clear to auscultation and percussion Cardiac Exam: - regular heart sounds, no murmurs, rubs, or gallops, no jugular venous distention Abdomen: abdomen soft, non-tender, no abnormal masses and no hepatosplenomegaly Extremities: no edema and no cyanosis Neuro:awake, coversant, follows commands, no focal motor deficits Psych: appropriate affect and insight. Results & Data Vital Signs (Past 12 Hours) Vital Signs Temp Pulse Resp BP Pulse Ox 08/17/18 12:17 36.7 C 66 16 109/50 L 98 08/17/18 08:01 36.4 C L 69 20 109/59 L 96 08/17/18 04:05 36.3 C L 57 L 16 110/65 96 Laboratory Results EKG performed 08/16/2018 at 2303, 2 hours after receiving dofetilide 125 mcg, revealed sinus rhythm at 74 bpm with first-degree AV block, and corrected QT interval 488 ms. EKG performed this morning 08/17/2018 7:47 AM: Prior to dose of dofetilide, sinus rhythm with first-degree AV block, QT interval 492 ms. EKG performed 08/17/2018 11:25 AM, post dose of dofetilide 125 mcg revealed sinus rhythm at 66 bpm, first-degree AV block, corrected QT interval of 475 ms INR today 08/17/2018 2.5 Medications Administered Current Inpatient Medications Acetaminophen (Tylenol) 650 mg PO Q4H PRN PRN Reason: Pain or Fever Stop: 09/13/18 10:29 Aspirin (Ecotrin Ectab) [facility] [place] Stop: 09/14/18 08:59 Last Admin: 08/17/18 08:41 Dose: 81 mg Documented by: Atenolol (Tenormin) 50 mg PO BID [facility] Stop: 09/13/18 20:59 Last Admin: 08/17/18 08:40 Dose: 50 mg Documented by: Bupropion HCl (Wellbutrin-Xl) 300 mg PO QAM [facility] Stop: 09/14/18 08:59 Last Admin: 08/17/18 10:25 Dose: 300 mg Documented by: Bupropion HCl (Wellbutrin-Xl) 150 mg PO QPM [facility] Stop: 09/13/18 20:59 Last Admin: 08/16/18 20:30 Dose: 150 mg Documented by: Dofetilide (Tikosyn) 125 mcg PO BID [facility] Stop: 09/14/18 09:59 Last Admin: 08/17/18 08:41 Dose: 125 mcg Documented by: Doxazosin Mesylate (Cardura) 1 mg PO QPM [facility] Stop: 09/13/18 20:59 Last Admin: 08/16/18 20:29 Dose: 1 mg Documented by: Ferrous Sulfate (Feosol) 325 [facility] [place] Stop: 09/14/18 08:59 Last Admin: 08/17/18 08:40 Dose: 325 mg Documented by: Folic Acid (Folvite) 1 mg PO QAM [facility] Stop: 09/14/18 08:59 Last Admin: 08/17/18 08:41 Dose: 1 mg Documented by: Furosemide (Lasix) 40 mg PO QAM [facility] Stop: 09/14/18 08:59 Last Admin: 08/17/18 08:40 Dose: 40 mg Documented by: Multivitamins (Multivitamin Tab) 1 tab [facility] [place] Stop: 09/14/18 08:59 Last Admin: 08/17/18 08:40 Dose: 1 tab Documented by: Nitroglycerin (Nitrostat) 0.4 mg SL UD PRN PRN Reason: Chest Pain Stop: 09/13/18 11:31 Rosuvastatin Calcium (Crestor) 20 mg PO QPM [facility] Stop: 09/13/18 20:59 Last Admin: 08/16/18 20:29 Dose: 20 mg Documented by: Sodium Chloride ([place] Nasal) 1 sprays NA BID PRN PRN Reason: Congestion Stop: 09/13/18 11:37 Tiotropium [place] (Spiriva) 1 puffs INH DAILY [facility] Stop: 09/14/18 08:59 Last Admin: 08/17/18 08:42 Dose: 1 puffs Documented by:
--- NOTE | 2018-08-17 13:57 | Discharge Summary ---
Date of Service August 17, 2018 Admission HPI Per Admitting Provider Isma Salcedo is a 67-year-old [employer] who presents as a direct admission due to symptoms of ongoing persistent recurrent atrial fibrillation. He had most recently been seen by the undersigned as an outpatient on 08/03/2018. He had undergone repeat direct-current cardioversion recently on 06/02/2018 and had been in sinus rhythm in June at the time of a cardiology follow-up, however in the meantime had reverted back to atrial fibrillation. He notes that his heart rate is irregular and notes shortness of breath with activity. His sensation of the irregular heartbeat is most prominent when he lays down to go to sleep at night. Principal Diagnosis Symptomatic persistent atrial fibrillation for which patient underwent direct- current cardioversion, and initiation of the antiarrhythmic medication dofetilide. Discharge Data Allergies Allergy/AdvReac Type Severity Reaction Status Date / Time No Known Allergies Allergy Verified 05/18/18 12:53 Consultations 08/15/18 07:42 Consult Anesthesiology Routine Procedures Performed Operation Date: 08/15/18 09:00 Actual Procedures s Transesophageal Echo - Ta Chi DO p Cardioversion - Ta Chi DO Hospital Course (1) Persistent atrial fibrillation: Patient underwent direct-current cardioversion this admission with transesophageal echocardiogram guidance with successful conversion to sinus rhythm. Initiation of the antiarrhythmic medication, dofetilide (Tikosyn) was initiated. With the initial dose of 250 mcg, the patient developed QT prolongation, which improved to acceptable measurement after reducing the dose to 125 mcg twice daily. 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 The patient's INR had been below goal on multiple recent measurements and on admission. He has been taking Coumadin 10 mg 2 days/week, and 5 mg remaining days a week. He is to be discharged on a standing dose of 7.5 mg daily with close follow-up as planned with the anticoagulation clinic. Total Time Total Time Spent Total Time Spent (In Minutes): 45 Total Time Includes: Examination of the Patient, Discharge Planning, Medication Reconciliation and Communication With Other Providers Discharge Plan Discharge Items Patient Disposition: Home - Self-Care Reason For Visit: A FIB, (3DAY STAY TECSUN AND LOW, MEDS, START TODA Discharge Diagnosis: Symptomatic atrial fibrillation, successful conversion to sinus rhythm Discharge Goals: Therapeutic intervention Activity: Resume your previous activity Non-emergency contact: Lead Furnace Operator Call non-emergency contact if: you have any medication questions and your symptoms worsen Follow-up/Referrals: Kennedi Haji MD [Primary Care Provider] - Diet: Heart Healthy Addtl Provider Instructions: Keep your upcoming cardiology follow-up visit as planned on 09/06/18. Your prescription for the dofetilide 125 mcg 2 times per day has been sent electronically to the [facility] pharmacy and you may pick it up today. You do not require another prescription for the Coumadin, because you can use your existing 5 mg tablets. I will coordinate your new dose with the anticoagulation clinic as an outpatient. Please take 7.5 mg daily, and follow- up for an INR as planned. You have a scheduled appointment with the anticoagulation clinic on 08/25/2018. They may ask you to come in earlier because of the change in dose. The patient has an upcoming cardiology follow-up visit with the undersigned on 09/06/2018 and he should keep this appointment. Prescriptions: New dofetilide 125 mcg capsule 125 mcg PO BID Qty: 60 RF: 11 warfarin [Coumadin] 5 mg tablet 7.5 mg PO DAILY Qty: 60 RF: 4 Continued multivitamin Tablet 1 tab PO QAM RF: 0 atenolol 25 mg Tablet 50 mg PO BID RF: 0 aspirin 81 mg Tablet,Delayed Release (Dr/Ec) 81 mg PO QAM RF: 0 rosuvastatin 20 mg Tablet 20 mg PO QPM RF: 0 bupropion HCl [Wellbutrin XL] 300 mg Tablet Extended Release 24 Hr 300 mg PO QAM RF: 0 bupropion HCl [Wellbutrin XL] 150 mg Tablet Extended Release 24 Hr 150 mg PO QPM RF: 0 ferrous sulfate [iron] 325 mg (65 mg iron) Tablet 325 mg PO QAM RF: 0 folic acid 1 mg Tablet 1 mg PO QAM RF: 0 Spiriva with HandiHaler 18 mcg Capsule, W/Inhalation Device 1 cap INHALATION DAILY RF: 0 Vitamin D3 1 dose PO BID RF: 0 furosemide 40 mg PO QAM RF: 0 doxazosin [Cardura] 1 mg Tablet 1 mg PO QPM RF: 0 acetaminophen [Acetaminophen Pain Relief] 500 mg Tablet 500 mg PO Q6H PRN (Reason: Pain) RF: 0 triamcinolone acetonide 0.1 % Cream 1 applic TOPICAL BID RF: 0 nitroglycerin [Nitrostat] 0.4 mg Tablet, Sublingual 0.4 mg sublingual USEASDIRECTD PRN (Reason: Chest Pain) RF: 0 albuterol sulfate 90 mcg/actuation Hfa Aerosol Inhaler 3 puff INHALATION Q6H PRN (Reason: Wheezing) RF: 0 sodium chloride [[place] Nasal] 0.65 % Aerosol,[place] See Rx Instructions .ROUTE .COMPLEX PRN (Reason: Congestion) RF: 0 coenzyme Q10 400 mg Capsule 400 mg PO DAILY RF: 0 Discontinued warfarin 5 mg Tablet 10 mg PO UD RF: 0 dofetilide [Tikosyn] 250 mcg Capsule 250 mcg PO Q12H RF: 0 clotrimazole-betamethasone [Lotrisone] 1-0.05 % Cream See Rx Instructions .ROUTE .COMPLEX RF: 0 Stand-Alone Forms: [facility] Discharge Orders: Discharge Order (Routine); Ordered 08/17/18 Ordered By: Ta Chi Admission Data Admit Date/Time: 08/14/18 09:23 Attending Provider: Ta Chi Admit Provider: Ta Chi Primary Care Provider: Kennedi Haji Other Providers: Johan Farah Service: Telemetry Other Interventions: Discharge Summary Assessment (RN) Last Done: 08/17/18 13:43
== END 2018-08-17 14:20 | disposition home or self-care (01) | DRG 310 ==
LOC: 2E 09:23
PROC: CLS.TEE (2018-08-15 09:00)

== ENCOUNTER 2023-02-18 16:22 | Inpatient (IN) ==
[2023-02-18 18:03] LABS: Basophils # (auto) 0.08 K/uL (0.00-0.20); Basophils % (auto) 0.7 %; Eosinophils # (auto) 0.28 K/uL (0.00-0.50); Eosinophils % (auto) 2.6 %; Hematocrit (blood only) 47.4 % (42.0-52.0); Hemoglobin 16.1 g/dl (14.0-18.0); Immature Granulocytes # (auto) 0.11 K/uL (0.01-0.20); Lymphocytes # (auto) 1.19 K/uL (1.20-3.40); Lymphocytes % (auto) 11.1 %; Mean Corpuscular Hemoglobin 30.5 pg (25.0-34.0); Mean Corpuscular Volume 89.8 fL (80.0-100.0); Mean Platelet Volume 10.3 fL (9.4-12.4); Monocytes # (auto) 1.03 K/uL (0.11-0.59); Monocytes % (auto) 9.6 %; Neutrophils # (auto) 8.04 K/uL (1.40-6.50); Platelet Count 277 K/uL (130-400); RDW Coefficient of Variation 13.2 % (11.5-14.5); RDW Standard Deviation 43.5 fL (36.4-46.3); Red Blood Count 5.28 M/uL (4.70-6.10); White Blood Count 10.73 K/ul (4.8-10.8)
[2023-02-18 18:06] LABS: Appearance Urine Clear (Clear); Bacteria Urine Automated Negative (Negative); Bilirubin Urine Negative (Negative); Blood Urine Negative (Negative); Cast Urine Automated 0 /lpf (0-5); Color Urine Yellow; Epithelial Cell Urine Auto >30 /lpf (0-5); Glucose Urine UA Trace (Negative); Ketones Urine Negative (Negative); Leukocyte Esterase Urine 3+ (Negative); Nitrite Urine Negative (Negative); Protein Urine Negative (Negative); RBC Urine Automated 0-4 /hpf (0-4); Specific Gravity Urine 1.007 (1.000-1.030); Urobilinogen Urine Negative (Negative); WBC Urine Automated >30 /hpf (0-5)
[2023-02-18 18:19] LABS: Albumin Globulin Ratio 1.2 (0.9-2); Albumin Level 3.5 gm/dl (3.4-5.0); BUN Creatinine Ratio 8.8 (10-20); Bilirubin,Total 0.8 mg/dl (0.2-1.0); Calcium 8.9 mg/dl (8.6-10.3); Est GFR (African American) 109.8 ml/min; Est GFR (Non-African American) 94.7 ml/min; Potassium 3.7 mmol/L (3.5-5.1); Total Protein 6.5 gm/dl (6.0-8.3)
[2023-02-18 18:32] LABS: Partial Thromboplastin Time 28 Seconds (21-31)
--- NOTE | 2023-02-18 20:35 | Ultrasound Report ---
ULTRASOUND BILATERAL LOWER EXTREMITY VENOUS CLINICAL HISTORY: Extremity swelling and erythema. COMPARISON STUDY: No prior studies are available for comparison at the time of dictation. TECHNIQUE: Real-time, grayscale, and color Doppler sonography of the deep veins of the right and left lower extremity was performed from the inguinal crease to the calf. Compression and augmentation wer e utilized. FINDINGS: Right lower extremity: There is no sonographic evidence of deep venous thrombosis in either lower ext remity. The common femoral, superficial femoral, and popliteal veins are patent and normally compress ible. The greater saphenous vein and the profunda femoris vein at the junction with the common femora l vein are clear. The visualized calf veins are patent. Left lower extremity: There is nearly occlusive deep venous thrombosis in the left common femoral vei n. Occlusive deep venous thrombosis is seen extending to the proximal superficial femoral vein to the distal popliteal vein. The left calf vessels were not visualized due to severe edema. IMPRESSION: 1. Extensive left lower extremity deep venous thrombosis as above. 2. There is no sonographic evidence of deep venous thrombosis in the right lower extremity. ACT 112: Negative or not required by law. Electronically signed by: Contreras Aguirre M.D. 02/18/2023 8:32 PM
[2023-02-18] MEDS ORDERED: Heparin IV Adult Wt-Based Standard w/ INITIAL Bolus Protocol IV STA (21:00)
[2023-02-18 21:08] LABS: Prothrombin Time 11.4 Seconds (9.0-12.0)
[2023-02-18] MEDS ORDERED: Heparin IV Adult Wt-Based Standard w/ INITIAL Bolus Protocol IV SCH (21:15)
[2023-02-18] MEDS ORDERED: HEPARIN SOD (PORCINE) 1000 UNIT/ML IV ONE ×2 (21:15→21:30)
[2023-02-18] MEDS ORDERED: ACETAMINOPHEN 325 MG TAB PO PRN (21:53)
[2023-02-18] MEDS: HEPARIN SODIUM/DEXTROSE 25,000 UNITS/500 ML BAG IV SCH (21:54)
[2023-02-18] MEDS ORDERED: GLUCOSE 40% GEL 15 GM TUBE PO PRN ×2 (21:58→23:00)
[2023-02-18] MEDS ORDERED: DEXTROSE 50% 50 ML SYRINGE IV PRN ×2 (21:58→23:00)
[2023-02-18] MEDS ORDERED: CARBOHYDRATES FOR HYPOGLYCEMIA PO PRN ×2 (21:58→23:00)
[2023-02-18] MEDS ORDERED: GLUCAGON FOR INJ 1 MG VIAL SQ PRN (21:58)
[2023-02-18] MEDS ORDERED: PHARMACY GLYCEMIC MGMT CONSULT PRN (21:58)
[2023-02-18] MEDS ORDERED: GLUCOSE 10 TAB/TUBE PO PRN ×2 (21:58→23:00)
--- NOTE | 2023-02-18 22:02 | Emergency Department Note ---
History of Present Illness General Chief complaint: Swelling/Edema to Extremity Stated complaint: LEG EDEMA Time Seen by Provider: 02/18/23 18:04 History of Present Illness Provider complaint: Lower extremity swelling 72-year-old male presents emergency department for lower extremity swelling. Patient reports he has been having increased swelling of his left leg but also swelling of his right leg. Denies any falls or traumas. He denies any chest pain or difficulty breathing. Patient states he has not been taking his medications as prescribed Nursing reports that the patient was sent in by the office of aging as they were concerned that the patient had not been taking his medications or was taking care of himself. Home Medications Medication Instructions Recorded Confirmed Type aspirin 81 mg tablet,delayed 81 mg PO QAM 05/18/18 02/18/23 History release doxazosin 1 mg tablet (Cardura) 1 mg PO QPM 05/18/18 02/18/23 History folic acid 1 mg tablet 1 mg PO BID 05/18/18 02/18/23 History multivitamin 1 tab PO QAM 05/18/18 02/18/23 History rosuvastatin 20 mg tablet 20 mg PO QPM 05/18/18 02/18/23 History acetaminophen 500 mg tablet 1,000 mg PO Q6H PRN Fever Or Pain 08/14/18 02/18/23 History (Acetaminophen Pain Relief) albuterol sulfate 90 mcg/actuation 2 puff inhalation Q6H PRN Wheezing 08/14/18 02/18/23 History aerosol inhaler coenzyme Q10 400 mg capsule 400 mg PO QAM 08/14/18 02/18/23 History nitroglycerin 0.4 mg sublingual 0.4 mg sublingual .EVERY 5 MIN PRN 08/14/18 02/18/23 History tablet (Nitrostat) Chest Pain cholecalciferol (vitamin D3) 50 50 mcg PO DAILY 09/04/19 02/18/23 History mcg (2,000 unit) capsule (Vitamin D3) furosemide 40 mg tablet (Lasix) 40 mg PO QPM 09/04/19 02/18/23 History atenolol 50 mg tablet 50 mg PO BID 02/18/23 02/18/23 History empagliflozin 10 mg tablet 10 mg PO QAM 02/18/23 02/18/23 History (Jardiance) pantoprazole 40 mg tablet,delayed 40 mg PO DAILY 02/18/23 02/18/23 History release warfarin 5 mg tablet 5 mg PO UD 02/18/23 02/18/23 History Allergies Allergy/AdvReac Type Severity Reaction Status Date / Time No Known Allergies Allergy Verified 02/18/23 17:02 Past Med/Surg History Medical History Arthritis of left hip Hip bursitis, left Diastolic heart failure CAD (coronary artery disease) s/p BMS to RCA in 1997 IBS (irritable bowel syndrome) Chronic obstructive pulmonary disease controlled w/ inhaler Sleep apnea CPAP- not currently using due to worries about safety after recall, to speak w/ about Osteoarthritis Diabetes mellitus, type 2 NIDDM- no longer taking metformin due to bowel issues per pt Hearing deficit BL [place] Hyperlipidemia Atrial fibrillation dx 1 year ago - on warfarin - follows dr. ruiz needs cardioversion and had cardioversion x 2 about a year ago 09/22/21- last visit w/ joseph about 6 mos ago, states is due for another visit Pilonidal cyst Depression Obesity Anemia Migraines Myocardial infarction 1997 Chronic GERD Hypertension Surgical History History of heart artery stent 1998 - [place] - 1 stent placed - hospital in [place], [place] reports had another cath early in [facility] - no stents/angioplasty now follows w/ dr ruiz- 6 mos since last visit History of cataract surgery right and left History of total hip arthroplasty RT History of total shoulder replacement BL History of esophagogastroduodenoscopy (EGD) H/O colonoscopy Hx laparoscopic cholecystectomy Family History Brother Family history of diabetes mellitus X2 Social History Smoking Status: Former smoker Second Hand Exposure: No; Do You Dip or Chew Tobacco: No; Hx Alcohol Use: No Hx Substance Use: No Preferred Language: Maltese Communication Ability: Impaired Disintegrator Required: No Beliefs That Will Affect Care: None Current Living Situation: Alone Feels Safe at Home: Yes Assistive Devices: Glasses, Hearing Aid - Bilateral and Walker Physical Exam Vital Signs Vital Signs - 24 hr 02/18/23 16:28 02/18/23 16:28 02/18/23 17:07 Temperature 36.8 C 36.8 C Temperature Source Oral Oral Pulse Rate 96 H 92 H Respiratory Rate 25 H Blood Pressure 132/99 Blood Pressure Mean 110 Pulse Oximetry 95 Oxygen Delivery Method Room Air Room Air Sepsis Recent Fever Within 48 Hours No Sepsis New/Unexplained Change in Mental Status No Sepsis Action Taken by Nursing No Action Required 02/18/23 21:03 Temperature Temperature Source Pulse Rate 95 H Respiratory Rate Blood Pressure Blood Pressure Mean Pulse Oximetry Oxygen Delivery Method Sepsis Recent Fever Within 48 Hours Sepsis New/Unexplained Change in Mental Status Sepsis Action Taken by Nursing Physical Exam GENERAL: He is oriented to person, place, and time. He does not appear distressed. HENT: Exam performed. - Head: Normocephalic and atraumatic. - Right Ear: External ear normal. No mastoid erythema - Left Ear: External ear normal. No mastoid erythema - Mouth/Throat: The oropharynx is clear and moist. No trismus in the jaw. No dental abscesses or uvula swelling. No oropharyngeal exudate or tonsillar abscesses. EYES: Conjunctivae and EOM are normal. Pupils are equal, round, and reactive to light. Right eye exhibits no discharge. Left eye exhibits no discharge. No scleral icterus. NECK: Normal range of motion. Neck supple. No JVD present. No spinous process tenderness present. No rigidity. No tracheal deviation and normal range of motion present. CV: Normal rate, regular rhythm, normal heart sounds and intact distal pulses. Palpable radial pulses bue. PULM/CHEST: Effort normal and breath sounds normal. No respiratory distress. No stridor. He has no wheezes. He has no rales. MUSC/SKEL: Swelling of the bilateral lower extremities left greater than right. NEURO: Motor and sensation grossly intact Course Course 1803: The patient was evaluated in room B3. A complete history and physical exam was performed Cardiac monitoring: An order was placed for continuous cardiac monitoring. The monitor shows a rate of 90 with atrial fibrilation rhythm interpreted by me 1920: Veronica case management spoke with office of aging in the office of aging states that they do not have any concerns about the patient's wellbeing. 2109: Vital signs stable. Labs show subtherapeutic INR of 1. Imaging shows an extensive left lower extremity DVT from the left common femoral vein extending into the superficial femoral vein distal popliteal vein. Patient is supposed to be on Coumadin and admits that he has not been taking his medications. Patient will be started on heparin and admitted to the [facility]ist team. Administered Medications Heparin Sodium/Dextrose (Heparin Sodium/Dextrose) 25,000 units in 500 mls @ 34 mls/hr IV .[id number] FOR[facility]LY [facility], [facility]; Protocol Stop: 03/20/23 21:14 Last Admin: 02/18/23 21:54 Dose: 1,700 units/hr, 34 mls/hr Documented By: ACC Co-signed By: REG Discontinued Medications Heparin Sodium (Porcine) (Heparin Sod (Porcine) 1000 Unit/Ml) 8,000 units IV NOW ONE Stop: 02/18/23 21:31 Last Admin: 02/18/23 21:53 Dose: 8,000 units Documented By: ACC Co-signed By: REG Critical Care Time Critical Care Time: Yes Total Critical Care Time: 37 I have personally spent greater than 37 minutes of critical care time in the direct management of this patient. This includes bedside care, interpretation of diagnostic studies, and testing, discussion with consultants, patient, and family members, and other required patient management activities. This 37 minutes is in excess of all separately billable procedures. Medical Decision Making Laboratory Data Attestation: I reviewed the patient's lab results. 02/18/23 16:55 02/18/23 16:55 Lab Results 02/18/23 02/18/23 Range/Units 16:55 17:45 WBC 10.73 (4.8-10.8) K/ul RBC 5.28 (4.70-6.10) M/uL Hgb 16.1 (14.0-18.0) g/dl Hct 47.4 (42.0-52.0) % MCV 89.8 (80.0-100.0) fL MCH 30.5 (25.0-34.0) pg MCHC 34.0 (32.0-36.0) g/dL RDW Std Deviation 43.5 (36.4-46.3) fL RDW Coeff of Carlton 13.2 (11.5-14.5) % Plt Count 277 (130-400) K/uL MPV 10.3 (9.4-12.4) fL Immature Gran % (Auto) 1.0 % Neut % (Auto) 75.0 % Lymph % (Auto) 11.1 % Mchenry % (Auto) 9.6 % Eos % (Auto) 2.6 % Baso % (Auto) 0.7 % Neut # (Auto) 8.04 H (1.40-6.50) K/uL Lymph # (Auto) 1.19 L (1.20-3.40) K/uL Mchenry # (Auto) 1.03 H (0.11-0.59) K/uL Eos # (Auto) 0.28 (0.00-0.50) K/uL Baso # (Auto) 0.08 (0.00-0.20) K/uL Immature Gran # (Auto) 0.11 (0.01-0.20) K/uL PT 11.4 (9.0-12.0) Seconds INR 1.0 (0.9-1.1) APTT 28 (21-31) Seconds PTT Ratio 1.0 Sodium 134 L (136-145) mmol/L Potassium 3.7 (3.5-5.1) mmol/L Chloride 103 (98-107) mmol/L Carbon Dioxide 23 (21-32) mmol/L Anion Gap 8 (3-11) BUN 6 (6-23) mg/dl Creatinine 0.68 (0.6-1.4) mg/dl Est Cr Clr Drug Dosing 130.0 ml/min Est GFR ( Amer) 109.8 ml/min Est GFR (Non-Af Amer) 94.7 ml/min BUN/Creatinine Ratio 8.8 L (10-20) Glucose 182 H (70-99(Fasting)) mg/dl Calcium 8.9 (8.6-10.3) mg/dl Total Bilirubin 0.8 (0.2-1.0) mg/dl AST 20 (13-39) U/L ALT 15 (7-52) U/L Alkaline Phosphatase 58 (34-104) U/L Total Protein 6.5 (6.0-8.3) gm/dl Albumin 3.5 (3.4-5.0) gm/dl Globulin 3.0 (2.5-4.0) gm/dl Albumin/Globulin Ratio 1.2 (0.9-2) Urine Color Yellow Urine Appearance Clear (Clear) Urine pH 6.0 (4.5-7.5) Ur Specific [place] 1.007 (1.000-1.030) Urine Protein Negative (Negative) Urine Glucose (UA) Trace H (Negative) Urine Ketones Negative (Negative) Urine Blood Negative (Negative) Urine Nitrite Negative (Negative) Urine Bilirubin Negative (Negative) Urine Urobilinogen Negative (Negative) Ur Leukocyte Esterase 3+ H (Negative) Urine WBC (Auto) >30 H (0-5) /hpf Urine RBC (Auto) 0-4 (0-4) /hpf U Hyaline Cast (Auto) 0 (0-5) /lpf U Epithel Cells (Auto) >30 H (0-5) /lpf Urine Bacteria (Auto) Negative (Negative) Imaging Data Radiologist's Impression: Venous Doppler Study 02/18/23 18:44 ULTRASOUND BILATERAL LOWER EXTREMITY VENOUS CLINICAL HISTORY: Extremity swelling and erythema. COMPARISON STUDY: No prior studies are available for comparison at the time of dictation. TECHNIQUE: Real-time, grayscale, and color Doppler sonography of the deep veins of the right and left lower extremity was performed from the inguinal crease to the calf. Compression and augmentation were utilized. FINDINGS: Right lower extremity: There is no sonographic evidence of deep venous thrombosis in either lower extremity. The common femoral, superficial femoral, and popliteal veins are patent and normally compressible. The greater saphenous vein and the profunda femoris vein at the junction with the common femoral vein are clear. The visualized calf veins are patent. Left lower extremity: There is nearly occlusive deep venous thrombosis in the left common femoral vein. Occlusive deep venous thrombosis is seen extending to the proximal superficial femoral vein to the distal popliteal vein. The left calf vessels were not visualized due to severe edema. IMPRESSION: 1. Extensive left lower extremity deep venous thrombosis as above. 2. There is no sonographic evidence of deep venous thrombosis in the right lower extremity. ACT 112: Negative or not required by law. Electronically signed by: Contreras Aguirre M.D. 02/18/2023 8:32 PM ECG Data Attestation: I personally reviewed and interpreted this ECG as follows: Additional Comments: Atrial fibrillation with a rate of 54. Multiple PVCs present. No ST elevation or ST depression. [facility] Narrative 1804: The patient was evaluated in room B3. A complete history and physical exam was performed Cardiac monitoring: An order was placed for continuous cardiac monitoring. The monitor shows a rate of 90 with atrial fibrilation rhythm interpreted by me 1921: Veronica case management spoke with office of aging in the office of aging states that they do not have any concerns about the patient's wellbeing. 2109: Vital signs stable. Labs show subtherapeutic INR of 1. Imaging shows an extensive left lower extremity DVT from the left common femoral vein extending into the superficial femoral vein distal popliteal vein. Patient is supposed to be on Coumadin and admits that he has not been taking his medications. Patient will be started on heparin and admitted to the [facility] hospitalist team. Impression & Plan DVT (deep venous thrombosis) Discharge Plan Visit Data Chief Complaint: Swelling/Edema to Extremity Stated Complaint: LEG EDEMA ED Provider: Dangelo Miles Discharge Problem: DVT (deep venous thrombosis) Patient Disposition: Admitted As Inpatient Forms Stand Alone Forms: My [facility] Prescriptions Prescriptions: No Action multivitamin Tablet 1 tab PO QAM aspirin 81 mg Tablet,Delayed Release (Dr/Ec) 81 mg PO QAM rosuvastatin 20 mg Tablet 20 mg PO QPM folic acid 1 mg Tablet 1 mg PO BID doxazosin [Cardura] 1 mg Tablet 1 mg PO QPM acetaminophen [Acetaminophen Pain Relief] 500 mg Tablet 1,000 mg PO Q6H PRN (Reason: Fever Or Pain) nitroglycerin [Nitrostat] 0.4 mg Tablet, Sublingual 0.4 mg sublingual .EVERY 5 MIN PRN (Reason: Chest Pain) Rx Instructions: x3 doses q 5mins for chest pain albuterol sulfate 90 mcg/actuation Hfa Aerosol Inhaler 2 puff INHALATION Q6H PRN (Reason: Wheezing) Rx Instructions: pro air hfa coenzyme Q10 400 mg Capsule 400 mg PO QAM furosemide [Lasix] 40 mg Tablet 40 mg PO QPM cholecalciferol (vitamin D3) [Vitamin D3] 50 mcg (2,000 unit) Capsule 50 mcg PO DAILY warfarin 5 mg tablet 5 mg PO UD Rx Instructions: take 2 tablets in evening on tuesday,tuesday, ...other day take 1 tablet in evening pantoprazole 40 mg tablet,delayed release (DR/EC) 40 mg PO DAILY Jardiance 10 mg tablet 10 mg PO QAM atenolol 50 mg tablet 50 mg PO BID Referrals Referrals: Ta Ruiz DO [Primary Care Provider] - Discharge Problem: DVT (deep venous thrombosis) Qualifiers: DVT location: lower extremity Affected thrombotic vein of extremity: u nspecified vein of extremity Chronicity: acute Laterality: unspecified laterality Qualified Code(s): I82.409 - Acute embolism and thrombosis of unspecified deep veins of unspecified lower extremity
--- NOTE | 2023-02-18 22:25 | History & Physical Report ---
Date of Service February 18, 2023 Assessment & Plan (1) DVT (deep venous thrombosis): Plan: Nearly occlusive DVT left lower extremity. IV heparin drip. Will start Coumadin 5 mg a day which is his normal home dose get daily INRs. Should not be discharged to therapeutic on warfarin. It is unclear to me why the patient is on Coumadin therapy as opposed to DOAC type of medication for his atrial fibrillation but he does see cardiology therefore we will continue Coumadin for both indications of A-fib and DVT (2) Cellulitis of lower extremity: Plan: Left lower extremity cellulitis with superimposed venous stasis with mild dependent edema. IV Rocephin. this is not weeping there is nothing to culture at this time (3) Persistent atrial fibrillation: Plan: Continue heparin drip continue Coumadin he appears to be in sinus rhythm at the time my exam at this time (4) CAD (coronary artery disease): Plan: History of stents per patient (5) Urinary tract infection: Plan: Await urine cultures in the meantime IV Rocephin should cover the urine as well as cellulitis of the left lower extremity (6) Obstructive sleep apnea: Plan: Patient does not wear CPAP at this time due to the national recall on his machine. (7) Diabetes: Plan: Continue home medications as well as sliding scale coverage Plan As described above. Please refer to orders for further planning. Again [facility] sent this patient in for evaluation due to not taking medications and his left lower extremity edema. We do recommend social service consultation prior to discharge to make sure the patient is safe at home but he does appear to be this appears to be a noncompliant issue is as opposed to a self-neglect History of Present Illness Chief Complaint: Poor self-care at home evaluated by [facility] at home at home found to have a swollen left leg and sent to the ER for further evaluation and treatment. The patient does admit he has not been taking his home medications as prescribed thankfully it is not a financial issue he just sometimes does not feel like it and sometimes forgets he does live at home alone. 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 In the emergency department ultrasound of the left lower extremity revealed nearly occlusive DVT of the left lower extremity. The patient does have chronic atrial fibrillation on Coumadin at home however his INR due to medical noncompliance is subtherapeutic at 1.0. Other laboratory studies of interest the patient does appear to have a UTI on urinalysis. Otherwise his laboratory studies are essentially unremarkable Course in the emergency department the patient received IV heparin bolus and placed on a heparin drip we are called admit the patient for further evaluation and treatment. Primary Care Provider: Ta Ruiz DO As above in chief complaint Allergies Allergy/AdvReac Type Severity Reaction Status Date / Time No Known Allergies Allergy Verified 02/18/23 17:02 Home Medications Medication Instructions Recorded Confirmed Type aspirin 81 mg tablet,delayed 81 mg PO QAM 05/18/18 02/18/23 History release doxazosin 1 mg tablet (Cardura) 1 mg PO QPM 05/18/18 02/18/23 History folic acid 1 mg tablet 1 mg PO BID 05/18/18 02/18/23 History multivitamin 1 tab PO QAM 05/18/18 02/18/23 History rosuvastatin 20 mg tablet 20 mg PO QPM 05/18/18 02/18/23 History acetaminophen 500 mg tablet 1,000 mg PO Q6H PRN Fever Or Pain 08/14/18 02/18/23 History (Acetaminophen Pain Relief) albuterol sulfate 90 mcg/actuation 2 puff inhalation Q6H PRN Wheezing 08/14/18 02/18/23 History aerosol inhaler coenzyme Q10 400 mg capsule 400 mg PO QAM 08/14/18 02/18/23 History nitroglycerin 0.4 mg sublingual 0.4 mg sublingual .EVERY 5 MIN PRN 08/14/18 02/18/23 History tablet (Nitrostat) Chest Pain cholecalciferol (vitamin D3) 50 50 mcg PO DAILY 09/04/19 02/18/23 History mcg (2,000 unit) capsule (Vitamin D3) furosemide 40 mg tablet (Lasix) 40 mg PO QPM 09/04/19 02/18/23 History atenolol 50 mg tablet 50 mg PO BID 02/18/23 02/18/23 History empagliflozin 10 mg tablet 10 mg PO QAM 02/18/23 02/18/23 History (Jardiance) pantoprazole 40 mg tablet,delayed 40 mg PO DAILY 02/18/23 02/18/23 History release warfarin 5 mg tablet 5 mg PO UD 02/18/23 02/18/23 History Past Med/Surg History Medical History (Updated 02/18/23 @ 22:22 by Edward Shea, PhD, DO) Obstructive sleep apnea Urinary tract infection Cellulitis of lower extremity Arthritis of left hip Hip bursitis, left Diastolic heart failure CAD (coronary artery disease) s/p BMS to RCA in 1997 IBS (irritable bowel syndrome) Chronic obstructive pulmonary disease controlled w/ inhaler Sleep apnea CPAP- not currently using due to worries about safety after recall, to speak w/ about Osteoarthritis Diabetes mellitus, type 2 NIDDM- no longer taking metformin due to bowel issues per pt Hearing deficit BL [place] Hyperlipidemia Atrial fibrillation dx 1 year ago - on warfarin - follows dr. ruiz needs cardioversion and had cardioversion x 2 about a year ago 09/22/21- last visit w/ joseph about 6 mos ago, states is due for another visit Pilonidal cyst Depression Obesity Anemia Migraines Myocardial infarction 1997 Chronic GERD Hypertension Surgical History History of heart artery stent 1997 - [place] - 1 stent placed - hospital in [place], [place] reports had another cath early in [facility] - no stents/angioplasty now follows w/ dr ruiz- 6 mos since last visit History of cataract surgery right and left History of total hip arthroplasty RT History of total shoulder replacement BL History of esophagogastroduodenoscopy (EGD) H/O colonoscopy Hx laparoscopic cholecystectomy Family History Brother Family history of diabetes mellitus X2 Social History Smoking Status: Former smoker Second Hand Exposure: No; Do You Dip or Chew Tobacco: No; Hx Alcohol Use: No Hx Substance Use: No Preferred Language: Indonesian Communication Ability: Impaired Improvement Spec Required: No Beliefs That Will Affect Care: None Current Living Situation: Alone Feels Safe at Home: Yes Assistive Devices: Glasses, Hearing Aid - Bilateral and Walker Review of Systems Review of Systems: A 10 point review of system was obtained unless otherwise stated here or in history of present illness are negative and noncontributory chief complaint Physical Exam Physical Exam: In general: This is a pleasant 72-year-old male who is alert and oriented x 3 at time my exam he interacts appropriate and pleasantly he is in no acute distress has no specific complaints. HEENT: Normocephalic atraumatic pupils are equal round and reactive to light bilaterally. No scleral icterus no conjunctival injection external auditory canals are patent septum is in the midline nose is without discharge oral mucosa is pink and moist without lesion. NECK: Supple no rigidity no lymphadenopathy no thyromegaly no carotid bruits no JVD no masses. Neck is greater than 20 inches in circumference per my visual estimation consistent with his history of obstructive sleep apnea HEART: Regular rate and rhythm I do not appreciate any ectopy or rub. No murmur. LUNGS: Clear to auscultation bilaterally and anteriorly with no evidence of adventitious sounds/wheezes rales or rhonchi. ABDOMEN: Morbidly obese, soft nontender, no rebound, no peritoneal signs, positive bowel sounds, no appreciable organomegaly. EXTREMITIES: Intact, no peripheral cyanosis, clubbing. The patient does have dependent pedal and pretibial edema. Approximately 1+. Left greater than right. Strength is 5 out of 5 in extremities x4, no pathological reflexes. In addition he has changes of chronic venous stasis bilaterally. However it does appear he has superimposed cellulitis of the left lower extremity from the mid tibia distally skin is erythematous it is warm to the touch compared to surrou nding tissue NEUROLOGICAL: Cranial nerves II through XII are grossly intact with no focal deficit elicited upon examination. No tremor. Results & Data Results & Data Vital Signs (Past 12 Hours) Vital Signs Temp Pulse Resp BP Pulse Ox O2 Del Method 02/18/23 21:03 95 H 02/18/23 17:07 92 H 02/18/23 16:28 36.8 C Room Air 02/18/23 16:28 36.8 C 96 H 25 H 132/99 95 Room Air Code Status & VTE Plan Code Status Full code I did discuss with patient VTE Prophylaxis Plan VTE Prophylaxis will be ordered: Yes PG Care Time/CCT Total # of Minutes Spent Total Time Spent with Patient: Total time spent is greater than 50% in coordination of care (as documented) at patient's floor/unit and/or counseling patient: Coding Level of Care Code 54599 INT INP/OBS CARE 3/75MIN Diagnoses DVT (deep venous thrombosis) I82.409 Affected thrombotic vein of extremity: unspecified vein of extremity Chronicity: acute DVT location: lower extremity Laterality: unspecified laterality Cellulitis of lower extremity L03.119 Persistent atrial fibrillation I48.1 CAD (coronary artery disease) I25.10 Urinary tract infection N39.0 Obstructive sleep apnea G47.33 Diabetes E11.9 (1) DVT (deep venous thrombosis) Affected thrombotic vein of extremity: unspecified vein of extremity Chronicity: acute DVT location: lower extremity Laterality: unspecified laterality Qualified Code(s): I82.409 - Acute embolism and thrombosis of unspecified deep veins of unspecified lower extremity
[2023-02-18] MEDS ORDERED: ALBUTEROL HFA 8 GM INHALER INH PRN (22:54)
[2023-02-18] MEDS ORDERED: GLUCAGON FOR INJ 1 MG VIAL IM PRN (23:00)
[2023-02-18] MEDS ORDERED: cefTRIAXone SODIUM 2,000 MG in DEXTROSE 5 % MINI-B 50 ML IV ONE (23:30)
[2023-02-18] MEDS ORDERED: WARFARIN SOD 10 MG TAB PO SCH (23:30)
[2023-02-18] MEDS: INSULIN ASPART PER UNIT CHARGE SC SCH (23:41)
--- OUTSIDE RECORDS SUMMARY | 2023-02-19 03:58 | External Medical Summary | Summary of Care ---
Author Name Unknown Organization [facility] Address [address] [facility] [place] [address] Phone [phone] Care Team Providers Care Supervisor Refractory Products Name Role Phone Julieth Hargrove PA-C Primary Care Provide r Reason for Visit * Reason Comments Dosage Adjustment Via Phone (anticoag Cl inic) Encounter Details Date Type Department Care Team (Latest Contact Info) Description 01/12/2023 5:30 PM EST Anticoagulation Pharmacy, [facility] [address] [place] [address] [facility] [address] [place] [address] Persistent atrial fibrillation (HCC)* Allergies No known active allergiesdocumented as of this encounter (statuses as of 01/12/2023) Medications Medication Sig Dispensed Refills Start Date End Date Status ECOTRIN LOW STRENGTH 81 MG PO TBEC One pill by mouth once a day 0 11/08/2007 Active VITAMIN D 1000 UNITS PO CAPSIndications:Lisa min D deficiency twice daily 30 Cap 11 06/01/2013 Active ACETAMINOPHEN 500 MG PO TABS Two pills by mouth every 6 hours as needed for fever or pain 100 Tab 0 08/21/2013 Active FOLIC ACID 1 MG PO TABS twice daily 0 Active CENTRUM SILVER PO TABS one tablet daily 0 03/12/2014 Active Saline 0.65 % Nasal SolutionIndications: Other chronic sinusitis Administer 1 [place] into nostril in the morning and 1 [place] before bedtime. 30 mL 12 07/13/2016 Active Coenzyme Q10 (COQ10) 400 MG CAPS Take by mouth. 0 Active Nitroglycerin 0.4 MG Sublingual Tablet Sublingual (Nitrostat)Indicatio ns:CAD (coronary artery disease) Maximum 3 doses.One pill under tongue every 5 minutes as needed for chest pain, maximum 3 doses 25 Tab 3 04/18/2020 Active Rosuvastatin Calcium 20 MG Oral Tablet (Crestor)Indications :Dyslipidemia, goal LDL below 70 TAKE 1 TABLET BY MOUTH ONCE DAILY 90 Tab 0 08/21/2020 Active Doxazosin Mesylate 1 MG Oral Tablet (Cardura)Indications :Coronary artery disease involving [place] coronary artery of [place] heart without angina pectoris TAKE 1 TABLET BY MOUTH EVERY EVENING 90 Tab 0 08/21/2020 Active Furosemide 40 MG Oral Tablet (Lasix)Indications:C hronic diastolic heart failure (HCC) TAKE 1 TABLET BY MOUTH DAILY. 90 Tab 0 08/21/2020 Active Warfarin Sodium 5 MG Oral Tablet (Coumadin)Indication s:Persistent atrial fibrillation (HCC) TAKE 1 TABLET BY MOUTH IN THE MORNING OR DIRECTED BY ANTI COAG CLINIC 90 Tablet 2 11/29/2022 Active Jardiance 10 MG Oral Tablet Take 1 Tablet by mouth in the morning. 0 10/14/2022 Active Atenolol 50 MG Oral Tablet (Tenormin)Indication s:PAF (paroxysmal atrial fibrillation) (HCC),Frequent PVCs,NSVT (nonsustained ventricular tachycardia) (HCC) One tablet by mouth two times per day 180 Tablet 3 01/06/2023 Active Hospital, Clinic, or Other Facility Administered Medication Ordered Dose Route Frequency Start Date End Date Status albuterol (PROVENTIL HFA) inhaler 4 PuffIndications:COPD, moderate (HCC) 4 Puff IN Q4H PRN 03/14/2018 Active documented as of this encounter (statuses as of 01/12/2023) Active Problems Problem Noted Date Diagnosed Date PVC (premature ventricular contraction) 12/09/19 23 Persistent atrial fibrillation 11/19/2022 Peripheral venous insufficiency 03/18/2021 Body mass index (BMI) of 45.0 to 49.9 in adult 1 Overview: Per Obesity protocol - - COPD, group C, by GOLD 2017 classification 10/16 Overview: Per COPD GOLD Classification Type 2 diabetes mellitus wit h diabetic nephropathy, without long-term current use of insulin 07/24/2018 Chronic diastolic heart failure 05/30/2018 Asymmetrical sensorineural hearing loss 11/19/19 PAF (paroxysmal atrial fibrillation) 12/23/2016 BPH with obstruction/lower urinary tract symptom s 04/15/2016 Ventral hernia without obstruction or gangrene 0 09/02/2014 Mild single current episode of major depressive disorder 01/22/2014 Coronary artery disease invo lving elim [place] coronary artery of [place] ir[place] heart without angina pectoris 02/24/2012 Dyslipidemia, goal LDL below 70 02/18/2009 Overview: Per Lipid Taxonomy. Gastroesophageal reflux disease without esophagi tis 01/14/2009 Chronic rhinitis 01/14/2009 Type 2 diabetes mellitus wit h hemoglobin A1c goal of less than 7.0% 01/02/2009 Overview: Per Diabetes Taxonomy. ICD-10 update of inactive term OLD MYOCARDIAL INFARCT 09/26/2008 Overview: Modified by Acute [place] Protocol #5. 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 MAMI (obstructive sleep apnea) 03/07/1994 Overview: 10/2012 -- auto CPAP 16 cwp 06/26/12 -- changed from [employer] to T&B 08/06/11 -- CPAP auto 13-16 cwp 2007 - REMstar Plus CPAP 15 cwp T&B Medical ACEI/ARB contraindicated documented as of this encounter (statuses as of 01/12/2023) Resolved Problems Problem Noted Date Diagnosed Date Resolved Date Morbid obesity with BMI of 50.0-59.9, adult 05/15/2018 12/20/2019 Overview: Per Obesity protocol #1 - - Body mass index (BMI) of 45. 0 to 49.9 in adult 12/12/2017 05/16/2018 Overview: Per Obesity protocol #1 - - Body mass index (BMI) of 40. 0 to 44.9 in adult 10/18/2017 12/19/2017 Overview: Per Obesity protocol #1 - COPD, moderate 07/08/2017 10/19/2018 Overview: Per COPD GOLD Classification Hemorrhoids, external without complications 01/17/2017 07/24/2018 Persistent atrial fibrillation 10/16/2016 10/29/2016 Palpitations 06/23/2015 12/23/2016 Pre-operative cardiovascular examination 01/14/2014 01/22/2014 HTN, goal below 140/90 08/27/201309/24 Benign neoplasm of colon 02/12/2009 Overview: adenomatous polyp--repeat 2-3 years HTN, goal below 130/80 02/11/200910/27 Chronic otitis externa 01/14/200905/26 Dysfunction of eustachian tube 01/14/2009 05/26/2012 Sensorineural hearing loss, bilateral 01/14/2009 05/26/2012 Pilonidal cyst with abscess 05/26/2012 documented as of this encounter (statuses as of 01/12/2023) Immunizations Name Administration Dates Next Due Hepatitis B, 20+ yrs 10/14/2016,05/13/2016,04/15 PPD 01/06/2009 Pneumococcal Conjugate Vacc, 13 Valent (Prevnar) 07/28/2015 Pneumococcal Polysaccharide PPV23 (Pneumovax) 11/15/2016,11/08/2011,03/07/2005 Season Influenza, Quad, PF, Adjuvanted, 65+ Yrs, IM (FLUAD) 11/19/2019 Seasonal Influenza, Quadriva lent Hd (Fluzone Hd) 11/22/2020 Seasonal Influenza, Quadriva lent, No Preserve, IM 12/07/2018,12/02/2017,11/15/2016,11/06,12/08/2008 Seasonal Influenza, Split, I IV3, With Preserve, Inj 11/12/2014,11/28/2013,11/21/2012,05/2011,11/08/2011,11/16/2010,01/01/20 10,12/16/2008,01/06/2008 11/13/2015 TD - Tetanus/Diptheria (ADULT) 03/07/2004 TDAP (age 10 and older)(Boostrix) 03/12/2014 Varicella Zoster Vaccine (Adult) 03/02/2013 Zoster Vaccine Recombinant (Shingrix) 12/28/2018 ,09/26/2018 documented as of this encounter Social History Tobacco Use Types Packs/Day Years Used Date Smoking Tobacco: Former Cigarettes 1 25 Q uit: 08/19/1997 Smokeless Tobacco: Never Alcohol Use Standard Drinks/Week Comments No 0 (1 standard drink = 0.6 oz pur e alcohol) PHQ-2 Answer Date Recorded PHQ-2 Score 0 11/19/2019 Hunger Vital Sign Answer Date Recorded Worried About Running Out of Food in the Last Ye ar Never true 09/26/2018 Ran Out of Food in the Last Year Never true 09/26/2018 Sex and Gender Information Value Date Recorded Sex Assigned at Male 07/27/2018 3:34 PM EDT Gender Identity Male 07/27/2018 3:34 PM EDT Sexual Orientation Straight 07/27/2018 3: 34 PM EDT Job Start Date Occupation Industry Not on file Not on file Not on file documented as of this encounter Progress Notes * Suzanne Vazquez [facility] - 01/12/2023 10:47 AM EST Medication Therapy Disease Management - Anticoagulation Patient: Isma Michelle Denisse | : 1950 Subjective Contacts Type Contact Phone/Fax 01/12/2023 10:46 AM EST Phone (Outgoing) Isma Salcedo (Self) [phone] (M) Patient-Reported Symptoms: Patient Findings Negatives: Signs/symptoms of thrombosis, Signs/symptoms of bleeding, Change in health, Change in alcohol use, Change in activity, Upcoming invasive procedure, Missed doses, Extra doses, Change in medications, Change in diet/appetite, Bruising Objective Current Warfarin Dose As of 01/12/2023 Warfarin maintenance plan: 10 mg (5 mg x 2) every Tue, Nguyen, Sat; 5 mg (5 mg x 1) all other days INR Result As of 01/12/2023 INR goal: 2.0-3.0 INR used for dosin.3 (01/06/2023) Assessment & Plan Warfarin Plan As of 01/12/2023 Full warfarin instructions: 10 mg every Tue, Nguyen, Sat; 5 mg all other days No change documented: Suzanne Vazquez RPh Next INR check: 02/16/2023 Repeat PT/INR in 6 week(s) Weekly dose: not changed Additional Dosing Information: Suzanne Vazquez RPh Clinical Pharmacist 01/12/2023, 10:48 AM documented in this encounter Plan of Treatment Upcoming Encounters Date Type Department Care Team (Late st Contact Info) Description 01/24/2023 1:30 PM EST Cardiac Studies Cardiac Studies, [address] [place] [address] 02/07/2023 11:00 AM EST Imaging Radiology [facility] 1st Floor, [address] [place] [address] 02/16/2023 2:30 PM EST Anticoagulation Pharmacy, [address] [place] [address] [facility] [address] [place] [address] 03/25/2023 2:00 PM EST Office Visit Cardiology, [address] [place] [address] Claudette Harper PA-C [address] [facility] [place] [address] Health Maintenance Due Date Last Done Comments Alpha-1 Antitrypsin 11/08/1967 Cologuard 1994 Sigmoidoscopy 1994 Fecal Occult Blood Test 07/21/2017 07/21/2016 *ADVANCE DIRECTIVE NOT ON FILE 10/22/2018 Diabetic Eye Exam 07/11/2019 07/10/2018, , 06/10/2016, Additional history exists Albumin/Creatinine Ratio 08/26/2020 020, 07/27/2018, 07/05/2017, Additional history exists Depression Screening 11/18/2020 11/19/2019 Diabetic Foot Exam 11/18/2020 11/19/2019, 1 , 03/28/2018, Additional history exists HbA1c 10/04/2022 04/06/2022, 01/05, 08/27/2019, Additional history exists COVID-19 Vaccine (3 - season) 2022 05/20/2020, 04/29/2020 Influenza Vaccine (FLU shot) (#1) 2022 11/22/2020, 11/19/2019, 12/07/2018, Additional history exists O2 ASSESSMENT COMPLETED IN PAST YEAR FOR COPD 12/08/2023 12/07/2022 B-12 01/07/2024 01/06/2023, 01/05, 07/14/2016, Additional history exists GFR 01/07/2024 01/06/2023, 03/09, 01/23/2020, Additional history exists DTaP,Tdap,and Td Vaccines (2 - Td or Tdap) 03/12/2024 03/12/2014, 03/07/2004 Colonoscopy 10/01/2031 09/30/2021, 04/07, 04/22/2016, Additional history exists Colorectal Cancer Screening 10/01/2031 AAA Screening Completed 07/16/2016, 09/13/2012 Hepatitis B Completed 10/14/2016, 11/2016, 04/15/2016 Pneumococcal Vaccine: 65+ Years Completed 11/15/2016, 07/28/2015, 11/08/2011, Additional history exists Zoster Vaccines Completed 12/28/2018, 09/05, 03/02/2013 GARDASIL-HPV IMMUNIZATION SERIES Aged Out No longer eligible based on patient's age to complete this topic MENINGOCOCCAL (MENACTRA/MENVEO) Aged Out No longer eligible based on patient's age to complete this topic documented as of this encounter Medical Devices Not on filedocumented as of this encounter Visit Diagnoses Diagnosis Persistent atrial fibrillation (HCC)- Primary Atrial fibrillation documented in this encounter Care Teams Supervisor Refractory Products Relationship Specialty Start Date End Date Julieth Hargrove PA-C [address] [place] [address], [place] [address] PCP - General Physician Power Plant Assistant 03/18/21 documented as of this encounter"
--- OUTSIDE RECORDS SUMMARY | 2023-02-19 03:58 | External Medical Summary | Summary of Care ---
Author Name Unknown Organization [facility] Address [address] [facility] [place] [address] Phone [phone] Care Team Providers Care Sheet Rocker Name Role Phone Julieth Hargrove PA-C Primary Care Provide r Reason for Visit * Reason Onset Date Comments Test Results 01/28/2023 Encounter Details Date Type Department Care Team (Late st Contact Info) Description 01/28/2023 Telephone Cardiology, [facility] [address] [place] [address] [place], [address] [place] [address] Test Results Allergies No known active allergiesdocumented as of this encounter (statuses as of 01/28/2023) Medications Medication Sig Dispensed Refills Start Date [...] Nasal SolutionIndications: Other chronic sinusitis Administer 1 [place] into nostril in the morning and 1 [place] before bedtime. 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 Gastroesophageal reflux disease without esophagi tis 01/14/2009 Chronic rhinitis 01/14/2009 Type 2 diabetes mellitus wit h hemoglobin A1c goal of less than 7.0% 01/02/2009 Overview: Per Diabetes Taxonomy. ICD-10 update of inactive term OLD MYOCARDIAL INFARCT 09/26/2008 Overview: Modified by Acute [place] Protocol #5. 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 MMAI (obstructive sleep apnea) 03/07/1994 Overview: 10/2012 -- auto CPAP 16 cwp 06/26/12 -- changed from [employer] to T&B 08/06/11 -- CPAP auto 13-16 cwp 2007 - REMstar Plus CPAP 15 cwp T&B Medical ACEI/ARB contraindicated documented as of this encounter (statuses as of 01/28/2023) Resolved Problems Problem Noted Date Diagnosed Date [...] as of this encounter (statuses as of 01/28/2023) Immunizations Name Administration Dates Next Due Hepatitis [...] on file documented as of this encounter Miscellaneous Notes * Telephone Encounter - Courtney Harley CMA - 01/28/2023 11:48 AM EST Letter mailed. * Telephone Encounter - Courtney Harley CMA - 01/28/2023 11:46 AM EST ----- Message from Ta Chi DO sent at 01/25/2023 2:04 PM EST ----- Cardio nursing: please notify pt by phone or paper letter that his echo looked good with the exception of mildly elevated heart rate. He needs to make sure he is taking the atenolol 50 mg two times per day. Dose recently increased from one time per day to two times per day. Ta Chi DO documented in this encounter Plan of Treatment Upcoming Encounters Date Type Department Care Team (Late st Contact Info) Description 02/07/2023 11:00 AM EST Imaging Radiology [address] [place] [address] 02/16/2023 2:30 PM EST Anticoagulation Pharmacy, [facility] [address] [place] [address] [facility] [address] [place] [address] 03/25/2023 2:00 PM EST [facility] [address] [place] [address] Claudette Harper PA-C [address] [place] [address] Health Maintenance Due Date Last Done Comments [...] 01/05, 08/27/2019, Additional history exists COVID-19 Vaccine ( season) 2022 05/20/2020, 04/29/2020 Influenza Vaccine (FLU [...] Not on filedocumented as of this encounter Care Teams Sheet Rocker Relationship Specialty Start Date End Date Julieth Hargrove PA-C [address] [place] [address], [place] [address] PCP - General Physician Payroll And Benefits Assistant 03/18/21 documented as of this encounter
--- OUTSIDE RECORDS SUMMARY | 2023-02-19 03:58 | External Medical Summary | Summary of Care ---
Author Name Unknown Organization [facility] Address [address] [facility] [place] [address] Phone [phone] Care Team Providers Care Infusion Nurse Name Role Phone Julieth Hargrove PA-C Primary Care Provide r Reason for Visit * Reason Onset Date Comments Follow Up 02/03/2023 Encounter Details Date Type Department Care Team (Late st Contact Info) Description 02/03/2023 Telephone Cardiology, [facility] [address] [place] [address] [place], [address] [place] [address] Follow Up Allergies No known active allergiesdocumented as of this encounter (statuses as of 02/04/2023) Medications Medication Sig Dispensed Refills Start Date [...] Nasal SolutionIndications: Other chronic sinusitis Administer 1 [place] into nostril in the morning and 1 [place] before bedtime. 30 mL 12 07/13/2016 Active [...] Oral Tablet (Cardura)Indications :Coronary artery disease involving [place] coronary artery of [place] heart without angina pectoris TAKE 1 TABLET [...] as of this encounter (statuses as of 02/04/2023) Active Problems Problem Noted Date Diagnosed Date [...] disorder 01/22/2014 Coronary artery disease invo lving [place] coronary artery of [place] heart without angina pectoris 02/24/2012 Dyslipidemia, goal LDL below 70 02/18/2009 Overview: Per Lipid Taxonomy. Gastroesophageal reflux disease without esophagi tis 01/14/2009 Chronic rhinitis 01/14/2009 Type 2 diabetes mellitus wit h hemoglobin A1c goal of less than 7.0% 01/02/2009 Overview: Per Diabetes Taxonomy. ICD-10 update of inactive term OLD MYOCARDIAL INFARCT 09/26/2008 Overview: Modified by Acute [place] Protocol #5. 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 MAMI (obstructive sleep apnea) 03/07/1994 Overview: 10/2012 -- auto CPAP 16 cwp 06/26/12 -- changed from [employer] to T&B 08/06/11 -- CPAP auto 13-16 cwp 2007 - REMstar Plus CPAP 15 cwp T&B Medical ACEI/ARB contraindicated documented as of this encounter (statuses as of 02/04/2023) Resolved Problems Problem Noted Date Diagnosed Date [...] as of this encounter (statuses as of 02/04/2023) Immunizations Name Administration Dates Next Due Hepatitis [...] encounter Miscellaneous Notes * Telephone Encounter - Ta Chi DO - 02/04/2023 2:02 PM EST Update noted and appreciated. Ta Chi DO * Telephone Encounter - Ana María Remy OSA - 02/03/2023 11:58 AM EST Radiology scheduling called pt to mello MRI brain, order by , per pt he states he doesn't think the doctor has his best interest and did not want to reschedule this, just an FYI Radiology scheduling documented in this encounter Plan of Treatment Upcoming Encounters Date Type Department Care Team (Late st Contact Info) Description 02/16/2023 2:30 PM EST [facility]ticoagulation Pharmacy, [facility] [address] [facility] [place] [address] [facility] [address] [place] [address] 03/25/2023 2:00 PM EST Office Visit Cardiology, [facility] [address] [place] [address] Claudette Harper PA-C [address] [place] [address] Health Maintenance Due Date Last Done Comments [...] filedocumented as of this encounter Care Teams Infusion Nurse Relationship Specialty Start Date End Date Julieth Hargrove PA-C [address] [facility], [place] [address] PCP - General Physician Paper Roller 03/18/21 documented as of this encounter
--- OUTSIDE RECORDS SUMMARY | 2023-02-19 03:58 | External Medical Summary | Summary of Care ---
Author Name Unknown Organization [facility] Address [address] [facility] [place] [address] Phone [phone] Care Team Providers Care Manager Deli Name Role Phone Julieth Hargrove PA-C Primary Care Provide r Reason for Visit * Reason Onset Date Comments Advice 01/06/2023 Encounter Details Date Type Department Care Team (Late st Contact Info) Description 01/06/2023 Telephone Cardiology, [facility] [address] [place] [address] [place], DO [address] [place] [address] Advice Allergies No known active allergiesdocumented as of this encounter (statuses as of 01/07/2023) Medications Medication Sig Dispensed Refills Start Date [...] Nasal SolutionIndications: Other chronic sinusitis Administer 1 [place] into nostril in the morning and 1 [place] before bedtime. 30 mL 12 07/13/2016 Active [...] Oral Tablet (Cardura)Indications :Coronary artery disease involving [place] coronary artery of [place] heart without angina pectoris TAKE 1 TABLET [...] as of this encounter (statuses as of 01/07/2023) Active Problems Problem Noted Date Diagnosed Date [...] disorder 01/22/2014 Coronary artery disease invo lving [place] coronary artery of [place] heart without angina pectoris 02/24/2012 Dyslipidemia, goal LDL below 70 02/18/2009 Overview: Per Lipid Taxonomy. Gastroesophageal reflux disease without esophagi tis 01/14/2009 Chronic rhinitis 01/14/2009 Type 2 diabetes mellitus wit h hemoglobin A1c goal of less than 7.0% 01/02/2009 Overview: Per Diabetes Taxonomy. ICD-10 update of inactive term OLD MYOCARDIAL INFARCT 09/26/2008 Overview: Modified by Acute [place] Protocol #5. 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 MAMI (obstructive sleep apnea) 03/07/1994 Overview: 10/2012 -- auto CPAP 16 cwp 06/26/12 -- changed from [employer] to T&B 08/06/11 -- CPAP auto 13-16 cwp 2007 - REMstar Plus CPAP 15 cwp T&B Medical ACEI/ARB contraindicated documented as of this encounter (statuses as of 01/07/2023) Resolved Problems Problem Noted Date Diagnosed Date [...] as of this encounter (statuses as of 01/07/2023) Immunizations Name Administration Dates Next Due Hepatitis [...] encounter Miscellaneous Notes * Telephone Encounter - Margy Bowen OSA - 01/07/2023 9:56 AM EDT Spoke with Pt. When he checked out yesterday, 01/06, we scheduled his carotid US for 1:00 the same day. Pt did not come back to have it done. Pt is agreeable to coming in to have it done on 01/10 at 3:00. I will call Pt to remind him of that appointment again on Tuesday morning. * Telephone Encounter - Ta Chi DO - 01/07/2023 9:42 AM EDT I will work on calling pt's daughter, Bushra, back. 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 I would like for him to have an MRI of the brain for more detailed evaluation. I will place the order. Notify patient his blood work looked good. Ta Chi DO * Telephone Encounter - Lily Wallace OSA - 01/06/2023 4:00 PM EDT Pt daughter, Bushra, calling back in. She said she missed a call from Dr Chi regarding pt's appt. documented in this encounter Plan of Treatment Upcoming Encounters Date Type Department Care Team (Late st Contact Info) Description 01/10/2023 3:00 PM EST Imaging Vascular Lab, [facility] 2nd Floor, [address] [place] [address] 01/12/2023 6:10 PM EST Anticoagulation Pharmacy, [address] [place] [address] [facility] [address] [place] [address] 01/24/2023 1:30 PM EST Cardiac Studies Cardiac Studies, [address] [place] [address] 03/25/2023 2:00 PM EST Office Visit Cardiology, [address] [place] [address] Claudette Harper PA-C [address] [place] [address] Health Maintenance Due Date Last Done Comments [...] filedocumented as of this encounter Care Teams Manager Deli Relationship Specialty Start Date End Date Julieth Hargrove PA-C [address] [place] [address], [place] [address] PCP - General Physician Telephone Lines Repairer 03/18/21 documented as of this encounter
--- OUTSIDE RECORDS SUMMARY | 2023-02-19 03:58 | External Medical Summary | Summary of Care ---
Author Name Unknown Organization [facility] Address [address] [facility] [place] [address] Phone [phone] Care Team Providers Care Resource Recovery Engineer Name Role Phone Julieth Hargrove PA-C Primary Care Provide r Reason for Visit * Reason Onset Date Comments Test Results 01/28/2023 Encounter Details Date Type Department Care Team (Late st Contact Info) Description 01/28/2023 Telephone Cardiology, [facility] [address] [place] [address] [place], [address] [place] [address] Test Results Allergies No known active allergiesdocumented [...] Nasal SolutionIndications: Other chronic sinusitis Administer 1 [place] into nostril in the morning and 1 [place] before bedtime. 30 mL 12 07/13/2016 Active [...] Oral Tablet (Cardura)Indications :Coronary artery disease involving [place] coronary artery of [place] heart without angina pectoris TAKE 1 [...] disorder 01/22/2014 Coronary artery disease invo lving [place] coronary artery of [place] heart without angina pectoris 02/24/2012 Dyslipidemia, goal LDL below 70 02/18/2009 Overview: Per Lipid Taxonomy. Gastroesophageal reflux disease without esophagi tis 01/14/2009 Chronic rhinitis 01/14/2009 Type 2 diabetes mellitus wit h hemoglobin A1c goal of less than 7.0% 01/02/2009 Overview: Per Diabetes Taxonomy. ICD-10 update of inactive term OLD MYOCARDIAL INFARCT 09/26/2008 Overview: Modified by Acute [place] Protocol #5. 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 MAMI (obstructive [...] Description 02/07/2023 11:00 AM EST Imaging Radiology [address] [place] [address] 02/16/2023 2:30 PM EST Anticoagulation Pharmacy, [facility] [address] [place] [address] [facility] [address] [place] [address] 03/25/2023 2:00 PM EST Office Visit Cardiology, [facility] [address] [place] [address] Claudette Harper PA-C [address] [place] [address] Health Maintenance Due Date Last Done Comments [...] filedocumented as of this encounter Care Teams Resource Recovery Engineer Relationship Specialty Start Date End Date Julieth Hargrove PA-C [address] [place] [address], [place] [address] PCP - General Physician Lifts And Cranes Inspector 03/18/21 documented as of this encounter
--- OUTSIDE RECORDS SUMMARY | 2023-02-19 03:58 | External Medical Summary | Summary of Care ---
Author Name Unknown Organization [facility] Address [address] [facility] [place] [address] Phone [phone] Care Team Providers Care Depositing Machine Operator Name Role Phone Julieth Hargrove PA-C Primary Care Provide r Reason for Visit * Reason Onset Date Comments Advice 01/06/2023 Encounter Details Date Type Department Care Team (Late st Contact Info) Description 01/06/2023 Telephone Cardiology, [facility] [address] [place] [address] Ta Chi, DO [address] [place] [address] Advice Allergies No known active allergiesdocumented as of this encounter (statuses as of 01/10/2023) Medications Medication Sig Dispensed Refills Start Date [...] Nasal SolutionIndications: Other chronic sinusitis Administer 1 Gracey into nostril in the morning and 1 Gracey before bedtime. 30 mL 12 07/13/2016 Active [...] Oral Tablet (Cardura)Indications :Coronary artery disease involving [place] coronary artery of [place] heart without angina pectoris TAKE 1 TABLET [...] as of this encounter (statuses as of 01/10/2023) Active Problems Problem Noted Date Diagnosed Date [...] disorder 01/22/2014 Coronary artery disease invo lving [place] coronary artery of [place] heart without angina pectoris 02/24/2012 Dyslipidemia, goal LDL below 70 02/18/2009 Overview: Per Lipid Taxonomy. Gastroesophageal reflux disease without esophagi tis 01/14/2009 Chronic rhinitis 01/14/2009 Type 2 diabetes mellitus wit h hemoglobin A1c goal of less than 7.0% 01/02/2009 Overview: Per Diabetes Taxonomy. ICD-10 update of inactive term OLD MYOCARDIAL INFARCT 09/26/2008 Overview: Modified by Acute [place] Protocol #5. 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 MAMI (obstructive sleep apnea) 03/07/1994 Overview: 10/2012 -- auto CPAP 16 cwp 06/26/12 -- changed from [employer] to T&B 08/06/11 -- CPAP auto 13-16 cwp 2007 - REMstar Plus CPAP 15 cwp [facility] Medical ACEI/ARB contraindicated documented as of this encounter (statuses as of 01/10/2023) Resolved Problems Problem Noted Date Diagnosed Date [...] as of this encounter (statuses as of 01/10/2023) Immunizations Name Administration Dates Next Due Hepatitis [...] Telephone Encounter - Margy Bowen OSA - 01/10/2023 1:00 PM EST Called Pt to remind him of his appointment at 3:00 today for his carotid US. Pt says he remembers his appointment, but is not sure how to get to cardiology. I gave him directions and told him that once he gets to [facility], that he can ask any [employer] employee to show him the way to Cardiology. * Telephone Encounter - Ta Chi DO - 01/07/2023 4:54 PM EDT I called spouse, Bushra, back and discussed updated with her as per patient request. Questions answered to her satisfaction. She does live far away in [place], and has noted a slightdecline in his mental acuity, but perhaps not to the degree that I have observed since I have not seen him in person in 2 years. She has been encouraging him to consider moving into an assisted living level of care. She plans tovisit him soon and have further discussions to that regard. She asked that I keep her updated with regards to the other tests that are pending including the brain MRI. Ta Chi DO 01/07/2023 4:55 PM * Telephone Encounter - Margy Bowen OSA [...] remind him of that appointment again on Tuesday. * Telephone Encounter - Ta Chi DO [...] 01/10/2023 3:00 PM EST Imaging Vascular Lab, [facility] 2nd [facility], [address] [place] [address] 01/12/2023 6:10 PM EST Anticoagulation Pharmacy, [address] [place] [address] [facility] [address] [place] [address] 01/24/2023 1:30 PM EST Cardiac Studies Cardiac Studies, [address] [place] [address] 02/07/2023 11:00 AM EST Imaging Radiology [facility] 1st Floor, [address] [place] [address] 03/25/2023 2:00 PM EST Office Visit Cardiology, [address] [place] [address] Claudette Harper, MAGY [address] [place] [address] Health Maintenance Due Date Last Done Comments [...] filedocumented as of this encounter Care Teams Depositing Machine Operator Relationship Specialty Start Date End Date Julieth Hargrove PA-C [address] [place] [address], [place] [address] PCP - General Physician Graphic Design Assistant 03/18/21 documented as of this encounter
--- OUTSIDE RECORDS SUMMARY | 2023-02-19 03:58 | External Medical Summary | Summary of Care ---
Author Name Unknown Organization [facility] Address [address] [facility] [place] [address] Phone [phone] Care Team Providers Care Surgical Resident Name Role Phone Julieth Hargrove PA-C Primary Care Provide r Reason for Visit * Reason Onset Date Comments Advice 01/06/2023 Encounter Details Date Type Department Care Team (Late st Contact Info) Description 01/06/2023 Telephone Cardiology, [facility] [address] [place] [address] Ta Chi, DO [address] [place] [address] Advice Allergies No known active allergiesdocumented as [...] Nasal SolutionIndications: Other chronic sinusitis Administer 1 [place] into nostril in the morning and 1 [place] before bedtime. 30 mL 12 07/13/2016 Active [...] Tablet (Cardura)Indications :Coronary artery disease involving [place] coronary artery of [place] heart without angina pectoris TAKE 1 TABLET [...] 01/22/2014 Coronary artery disease invo lving [place] coronary artery of [place] heart without angina pectoris 02/24/2012 Dyslipidemia, goal LDL below 70 02/18/2009 Overview: Per Lipid Taxonomy. Gastroesophageal reflux disease without esophagi tis 01/14/2009 Chronic rhinitis 01/14/2009 Type 2 diabetes mellitus wit h hemoglobin A1c goal of less than 7.0% 01/02/2009 Overview: Per Diabetes Taxonomy. ICD-10 update of inactive term OLD MYOCARDIAL INFARCT 09/26/2008 Overview: Modified by Acute [place] Protocol #5. 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 MAMI (obstructive [...] satisfaction. She does live far away in [place], and has noted a slightdecline in his [...] 01/10/2023 3:00 PM EST Imaging Vascular Lab, [facility] [address] [place] [address] 01/12/2023 6:10 PM EST Anticoagulation Pharmacy, [address] [place] [address] [facility] [address] [place] [address] 01/24/2023 1:30 PM EST Cardiac Studies Cardiac Studies, [address] [place] [address] 02/07/2023 11:00 AM EST Imaging Radiology [facility] 1st Floor, [address] [place] [address] 03/25/2023 2:00 PM EST Office Visit Cardiology, [facility], [place] [address] [place] [address] Claudette Harper PA-C [address] [place] [address] Health Maintenance Due Date Last Done Comments [...] filedocumented as of this encounter Care Teams Surgical Resident Relationship Specialty Start Date End Date Julieth Hargrove PA-C [address] [place] [address], [place] [address] PCP - General Physician Supervisor Home Economics 03/18/21 documented as of this encounter
--- OUTSIDE RECORDS SUMMARY | 2023-02-19 03:58 | External Medical Summary | Continuity of Care Document ---
Author Name Unknown Organization [facility] [address] [facility] Address [address], [place] [id number] Care Team Providers Care Insole Filler Name Role Phone Julieth Hargrove Primary Care Physician [phone] [id number] Date(s): 02/02/23 - 02/02/23 [facility] [address] [facility], [address] [place] [address] [phone] Encounter Diagnosis Colicky epigastric pain(Discharge Diagnosis) - 02/02/23 Unintentional weight loss(Discharge Diagnosis) - 02/02/23 Memory loss(Discharge Diagnosis) - 02/02/23 Type 2 diabetes mellitus with diabetic peripheral angiopathy without gangrene, without long-term current use of insulin(Discharge Diagnosis) - 02/02/23 Bilateral hearing loss(Discharge Diagnosis) - 02/02/23 Atrial fibrillation(Discharge Diagnosis) - 02/03/23 Chronic diastolic heart failure(Discharge Diagnosis) - 02/03/23 CAD in [place] artery(Discharge Diagnosis) - 02/03/23 Discharge Disposition: Home or Self Care Attending Physician: MAGY Hargrove Jessica A Allergies, Adverse Reactions, Alerts Substance Reaction Severity Status metFORMIN fecal incontience, diarrhea Active Assessment and Plan Extracted from: Title:6 month f/u Author:MAGY Hargrove Jessic a A Date:02/02/23 1.Colicky epigastric pain Patient has had chronic, colickyepigastric pain with associated unintentional weight loss, which is uncontrolled. Goal is resolution of symptoms. Etiology at this time is unclear. Last FCM clinic note, last cardiology noteandMay 2022 labs reviewed today. Unfortunately, lab results performed by cardiologyin the last few weeks are unavailable for review. CBC with differential, CMP, lipase andupper abdominal ultrasound ordered today. Also, will have patient's start pantoprazole 40 mg, 1 tab p.o. every morning x 8 weeks. We will have him follow-up in 2 to 3 months for recheck. To contact the office sooner if symptoms or not improving, worsen or change. 2.Unintentional weight loss As above in #1. 3.Type 2 diabetes mellitus with diabetic peripheral angiopathy without gangrene, without long-term current use of insulin Type 2 diabetes with diabetic peripheralangiopathy without gangrene and without long-term use of insulinis chronic and uncontrolled. C7lmhyf isbetween 7 to 8% andA1c in July 2022 was elevated at 9.3%. After last labs he was prescribed Jardiance 10 mg daily and per externalmedication history it appears he has been getting the medication refilled, but cannot confirm if he is taking. Encourage patient to bring his medications with him at the time of his next appointment. Updated A1c, CMP, lipid profile and urine microalbumin ordered today. 4.Bilateral hearing loss Bilateral hearing loss is chronic anduncontrolled. Goal has improved hearing. Referred to [facility] ENT/audiology per patient request. 5.Memory loss Memory loss is chronicand patient today does have poor memory recall in regards to what medication he is taking andin regards totesting he had completed at recent cardiology visitand medication changes made at that appointment. Cardiology note was reviewed and we did discussmed changes that were recommended at the time of his cardiology appointment based on their note. Again, recommend patient bring his medication to the appointment for clarification as to what he is actually taking. 6.Atrial fibrillation Atrial fibrillation, chronic diastolic heart failure and CADare chronic and all stable. Goal is to maintain euvolemia, rate control, prevention of stroke and secondary prevention of CAD. To continue current medications as recommended by cardiology at his most recent appointment in January2023. Patient could not recall what medications were changed, so we did review recommended changes based on cardiology note. I did asked that he bring his medications to the next appointment,so we can clarify what he is taking. 7.Chronic diastolic heart failure As above in #6. 8.CAD in [place] artery As above in #6. Time spent on pre-visit plannin minutes on chart review Face to face time spent w/ patient:25 minutes Time spent documenting pertinent clinical information into the EMR:18 minutes Total time: 45 minutes Medications AEROCHAMBER MIS PLUS Start: 07/21/20 8:56:00 EDT, AEROCHAMBER MIS PLUS Start Date: 07/21/20 Status: Ordered Albuterol (Eqv-ProAir HFA) 90 mcg/inh inhalation aerosol Start: 10/09/20 14:41:00 EDT Start Date: 10/09/20 Status: Ordered aspirin 81 mg oral delayed release tablet Start: 07/21/20 8:57:00 EDT, 1 tab, PO, Daily Start Date: 07/21/20 Status: Ordered atenolol 50 mg oral tablet Start: 02/03/23 14:46:00 EST, 1 tab, PO, bid Start Date: 02/03/23 Status: Ordered doxazosin 1 mg oral tablet Start: 08/11/22 13:48:00 EDT, See Instructions, Disp# 90 tab, Refills: 1, TAKE 1 TABLET BY MOUTH DAILY., Pharmacy: [facility] Start Date: 08/11/22 Status: Ordered furosemide 40 mg oral tablet Start: 08/11/22 13:48:00 EDT, See Instructions, Disp# 90 tab, Refills: 0, TAKE 1 TABLET BY MOUTH DAILY., Pharmacy: [facility] Start Date: 08/11/22 Status: Ordered Jardiance 10 mg oral tablet Start: 07/19/22 13:37:00 EDT, 1 tab, PO, qAM, Disp# 90 tab, Refills: 3, Pharmacy: [facility] Start Date: 07/19/22 Stop Date: 07/14/23 Status: Ordered multivitamin Start: 07/21/20 8:57:00 EDT, 1 tab, PO, Daily Start Date: 07/21/20 Status: Ordered nitroglycerin 0.4 mg sublingual tablet Start: 07/21/20 8:56:00 EDT, 1 tab, SL, q5min, Disp# 100 tab, PRN: as needed for chest pain Start Date: 07/21/20 Status: Ordered pantoprazole 40 mg oral delayed release tablet Start: 02/02/23 11:53:00 EST, 1 tab, PO, Daily, Disp# 90 tab, Refills: 1, Pharmacy: [facility] Start Date: 02/02/23 Stop Date: 08/01/23 Status: Ordered rosuvastatin 20 mg oral tablet Start: 05/31/22 9:53:00 EDT, 1 tab, PO, Daily, Disp# 90 tab, Refills: 0, Pharmacy: [facility] Start Date: 05/31/22 Status: Ordered warfarin 5 mg oral tablet Start: 09/08/21 15:47:00 EDT, 1 tab, PO, Daily, Disp# 90 tab, Refills: 3, managed by Lida Dunne and Dr. Chi cardiology, Pharmacy: [facility] Start Date: 09/08/21 Status: Ordered Mental Status 02/02/23 Barriers to Learning one year None evide nt Mandatory Health Literacy Documentation Yes Health Literacy Communication Barriers N ever Primary Language Maori Problem List Condition Confirmation Course Effective Dates Status H ealth Status Informant Atrial fibrillation Confirmed Active Bilateral hearing loss Confirmed Active Body mass index (BMI) of 45.0 to 49.9 in adult Confirmed Active Chronic diastolic heart failure Confirmed Active COPD (chronic obstructive pulmonary disease) Confirmed Active CAD in [place] artery Confirmed Active Generalized osteoarthritis Confirmed Active Fecal incontinence Confirmed Active Morbid obesity Confirmed Active MAMI on CPAP Confirmed Active Type 2 diabetes mellitus with hemoglobin A1c goal of less than 7.0% Confirmed Active Type 2 diabetes mellitus with diabetic peripheral angiopathy without gangrene, without long-term current use of insulin 1 Confirmed Active Ambulatory dysfunction Confirmed Active 1See outside note 07/21/21 07/17/21 [facility] Diagnosis Diagnosis Type Effective Dates Health Status Clinical Service Informant Type 2 diabetes mellitus with diabetic peripheral angiopathy without gangrene, without long-term current use of insulin Discharge Diagnosis 02/02/23 Non-Specified Colicky epigastric pain Discharge Diagnosis 02/02/23 Non-Specified Memory loss Discharge Diagnosis 02/02/23 Non-Specified Unintentional weight loss Discharge Diagnosis 02/02/23 Non-Specified Bilateral hearing loss Discharge Diagnosis 02/02/23 Non-Specified CAD in [place] artery Discharge Diagnosis 02/03/23 Atrial fibrillation Discharge Diagnosis 02/03/23 Chronic diastolic heart failure Discharge Diagnosis 02/03/23 Procedures Procedure Date Related Diagnosis Body Site Status Upper GI (gastrointestinal) endoscopy 1 07/30/16 Completed Colonoscopy 2 04/22/16 Completed Colonoscopy 3, 4 04/22/16 Complete d Cataract extraction Compl eted Hip replacement Completed Shoulder replacement 5 Co mpleted 1[facility] Impression: 1. Normal esophagus 2. Non-bleeding erosive gastropathy. Biopsied. 3. Normal examined duodenum. Biopsied. Pathology: Duodenum Biopsy: Duodenal mucosa with no specific pathologic change. Stomach biopsy: Gastric antral type mucosa with inactive chronic gastritis, intestinal metaplasia, and reactive epithelial change. Negative for dysplasia 2Repeat in 10 years. 3Impression: Non-thrombosed external hemorrhoids found on perianal exam. Diverticulosis in the sigmoid colon and in the descending colon. Anal papilla(e) were hypertrophied. No specimens collected. Repeat in 10 years 4Per Lida note Colonoscopy done 2017 5x 2 Vital Signs Most recent to oldest [Reference Range]: 1 Patient Weight 128.6 kg (02/02/23 11:13 AM) Temperature [36.5-37.9 DegC] 35.9 DegC *LOW* (02/02/23 11:13 AM) Heart Rate 68 bpm (02/02/23 11:13 AM) Respiratory Rate 20 br/min (02/02/23 11:13 AM) Blood Pressure 96/64mmHg (02/02/23 11:13 AM) Cuff Pulse Pressure 32 mmHg (02/02/23 11:13 AM) BP Location # 1 Right Arm, Manual (02/02/23 11:13 AM) Social History Social History Type Response Tobacco Former smoker, Cigar ettes, 20 year(s). Smoking Status Never smoked cigaret sergei Sex Male [facility] Note * MAGY Hargrove, Julieth Rogers: PERFORM Event Display: [facility] Note Authored Date: [id number] Chief Complaint Routine follow-up History of Present Illness Isma presents for follow-up of type 2 diabetes, chronic atrial fibrillation with diastolic heart failure,CADand COPD.Last clinic note in July 2022 was reviewed today. His primary concern today is that "I have been getting a periodic pain in my stomach. I don't knowwhat it is due to or whyit's there." He has had intermittent epigastric pain that started several months ago. The pain occurs at leasta few times per month and can last for several hours. Describes it as "it feels like I have been hit in the stomach." The pain does not radiate, butwhen present can be worseafter eatingand has associated decreased appetite. Uponreviewing hisvitals weight is down7.6 kg from the time of his last appointment, which was unintentional. No OTC medications tried. No hx of abdominal surgeries. No nausea, vomiting, chest pain, back pain,melena, hematochezia, dysphagia, odynophagia, heartburn, jaundice, icterus or pruritus. Also, notes that he has had chronic hearing loss that seems to be getting worse. Years ago followed with [facility] audiology and would like to see them again. Coronary artery disease, chronic atrial fibrillation and diastolic heart failure are chronic. Patient continues to follow with [facility] cardiology, but admits he has felt frustrated as he finds itdifficultto get his medication refilledand get appointments. He alsosays"I am upset with them. They want to commit meand send me away somewhere." [facility] last saw cardi[facility] on 01/06/2023. He is not sureif he remembers this visit and cannotremember if there have been any change to his medications. + chronic intermittent fluttering in his chest. + chronic edema that feels stable. Does not check his weight at home. No ETOH, tobacco or drug use.No claudication, chest pain, SOB, tachycardia, dizziness, lightheadedness, weakness, near syncope,syncope, nausea, vomiting, diarrhea, constipation, cough, headaches, blurred vision, loss of vision, confusion or epistaxis. COPD is chronic and in the past he had been on Advair Diskus, butnotes he has not used any inhalers for quite some time. Only experiences shortness of breath now when he seems to be in A-fib. Otherwise no wheezing, cough, chest tightness, chest painor shortness of breath. Type 2 DMis chronic and patient [facility]Pres[facility] Jardiance 10 mg daily; unsure if he's taking it.In the past he had taken metformin that was discontinued due to diarrhea. Does not monitor glucose at home. Wears glassesand gets eye exams every 1 to 2 years.No hypoglycemic episodes, polyuria, polydipsia, polyphagia, numbness/tingling in extremities, poor healing wounds, foot ulcerations, blurred vision, loss of vision, chest pain, SOB, tachycardia, loss of balance or falls. Also, in reviewing outside cardiology note from 01/06/2023 their note documentssome concern about hismogonsalo was found to have some difficulty with word finding. At the time of his appointment on 01/06/2023 [address] was [address]at CT scan of the brain, along with CBC, CMP, magnesium, folic acid, B12and TSH were ordered. Carotid duplex and follow-up echocardiogram were also ordered, but not yet completed. CT scan results suggest chronic small vessel disease. 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 Glucose was 158. INR was 2.3and hemoglobin was 17.5 with normal platelet count. Cardiology also documented that they reached out tohis daughterand left a message regarding concerns. Patient does admit that he has difficulty withhis memory at times and upon questioning he doesnot recall having had anybrain imaging or recall recent visit with cardiology. He does live alone. x2and his daughter lives in [place]. Ambulates with a rollator walker. Heiscontinuing to drive. Admits he feels upset thathis mentalstatus was questioned at last appointment. Review of Systems ROS:All other systems negative, except HPI. Physical Exam Vitals & Measurements T:35.9C HR:68(Monitored) RR:20 BP:96/64 SpO2:95% WT:128.6kg WT:128.600kg(Dosing) PHQ2 Data(Data Documented on:02/02/2023 11:13) Emotional health assessment NEGATIVE General: Alert and oriented, No acute distress.Pleasant.Hard of hearing. Unable to recall what medications he's taking or if changes were made at his recent cardiology appointment. Eye: Pupils are equal, round and reactive to light, Extraocular movements are intact, Normal conjunctiva. HENT: Normocephalic. TMs clear bilaterally. Posterior pharynx is pink. Uvula rises midline. No drooling, stridor or cyanosis. Neck: Supple, No lymphadenopathy, No thyromegaly. Respiratory: Lungs are clear to auscultation, Respirations are non-labored, Breath sounds are equal, Symmetrical chest wall expansion. Cardiovascular: Normal rate, Regular rhythm, No murmur, No gallop, Good pulses equal in all extremities, Normal peripheral perfusion. +pitting edema at BLE. Abdomen: Normoactive BS x 4. Soft, obese. + epigastric tenderness and firmness. No palpablemasses or organomegaly. Lymphatics: No submandibular, anterior or posterior cervical adenopathy palpable. Musculoskeletal Ambulates w/ rollator walker.FROM and 5/5 strength at BLE and BUE. Integumentary: Warm, Mild pallor to fair skin tone. Neurologic: Alert, Oriented, Cranial Nerves II-XII are grossly intact. Cognition and Speech: Oriented, Speech clear and coherent, Functional cognition intact. Psychiatric: Cooperative, Appropriate mood & affect, Normal judgment, Nonsuicidal. Assessment/Plan 1.Colicky epigastric pain Patient has had chronic, colickyepigastric pain with associated unintentional weight loss, which is uncontrolled. Goal is resolution of symptoms. Etiology at this time is unclear. Last FCM clinic note, last cardiology noteandMay 2022 labs reviewed today. Unfortunately, lab results performed by cardiologyin the last few weeks are unavailable for review. CBC with differential, CMP, lipase andupper abdominal ultrasound ordered today. Also, will have patient's start pantoprazole 40 mg, 1 tab p.o. every morning x 8 weeks. We will have him follow-up in 2 to 3 months for recheck. To contact the office sooner if symptoms or not improving, worsen or change. 2.Unintentional weight loss As above in #1. 3.Type 2 diabetes mellitus with diabetic peripheral angiopathy without gangrene, without long-term current use of insulin Type 2 diabetes with diabetic peripheralangiopathy without gangrene and without long-term use of insulinis chronic and uncontrolled. Y2ewzhy isbetween 7 to 8% andA1c in July 2022 was elevated at 9.3%. After last labs he was prescribed Jardiance 10 mg daily and per externalmedication history it appears he has been getting the medication refilled, but cannot confirm if he is taking. Encourage patient to bring his medications with him at the time of his next appointment. [id number], CMP, lipid profile and urine microalbumin ordered today. 4.Bilateral hearing loss Bilateral hearing loss is chronic anduncontrolled. Goal has improved hearing. Referred to [facility] ENT/audiology per patient request. 5.Memory loss Memory loss is chronicand patient today does have poor memory recall in regards to what medication he is taking andin regards totesting he had completed at recent cardiology visitand medication changes made at that appointment. Cardiology note was reviewed and we did discussmed changes that were recommended at the time of his cardiology appointment based on their note. Again, recommend patient bring his medication to the appointment for clarification as to what he is actually taking. 6.Atrial fibrillation Atrial fibrillation, chronic diastolic heart failure and CADare chronic and all stable. Goal isto maintain euvolemia, rate control, prevention of stroke and secondary prevention of CAD. To continue current medications as recommended by cardiology at his most recent appointment in January2023. Patient could not recall what medications were changed, so we did review recommended changes based on cardiology note. I did asked that he bring his medications to the next appointment,so we can clarify what he is taking. 7.Chronic diastolic heart failure As above in #6. 8.CAD in [place] artery As above in #6. Time spent on pre-visit plannin minutes on chart review Face to face time spent w/ patient:25 minutes Time spent documenting pertinent clinical information into the EMR:18 minutes Total time: 45 minutes Problem List/Past Medical History Ongoing Ambulatory dysfunction Atrial fibrillation Bilateral hearing loss Body mass index (BMI) of 45.0 to 49.9 in adult CAD in [place] artery Chronic diastolic heart failure COPD (chronic obstructive pulmonary disease) Fecal incontinence Generalized osteoarthritis Morbid obesity MAMI on CPAP Type 2 diabetes mellitus with diabetic peripheral angiopathy without gangrene, without long-term current use of insulin Type 2 diabetes mellitus with hemoglobin A1c goal of less than 7.0% Procedure/Surgical History Upper GI (gastrointestinal) endoscopy (07/30/2016)Colonoscopy (04/22/2016)Colonoscopy (04/22/2016)Shoulder replacementCataract extractionHip replacement Medications albuterol(Albuterol (Eqv-ProAir HFA) 90 mcg/inh inhalation aerosol) aspirin(aspirin 81 mg oral delayed release tablet), 81 mg= 1 tab, PO, Daily atenolol(atenolol 50 mg oral tablet), 50 mg= 1 tab, PO, bid doxazosin(doxazosin 1 mg oral tablet), See Instructions empagliflozin(Jardiance 10 mg oral tablet), 10 mg= 1 tab, PO, qAM, 3 refills furosemide(furosemide 40 mg oral tablet), See Instructions multivitamin, 1 tab, PO, Daily nitroglycerin(nitroglycerin 0.4 mg sublingual tablet), 0.4 mg= 1 tab, SL, q5min, PRN pantoprazole(pantoprazole 40 mg oral delayed release tablet), 40 mg= 1 tab, PO, Daily, 1 refills rosuvastatin(rosuvastatin 20 mg oral tablet), 20 mg= 1 tab, PO, Daily unlisted medication(AEROCHAMBER MIS PLUS) warfarin(warfarin 5 mg oral tablet), 5 mg= 1 tab, PO, Daily, 3 refills Allergies metFORMINfecal incontience, diarrhea Social History Smoking Status Never smoked cigarettes Alcohol - Denies Alcohol Use 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 Hypertension: Mother, Father, PGF and PGM. Stroke: Father, PGF and PGM. Health Status Family Member(s) Recommendations Health Maintenance Pending(in the next year) OverDue Body Mass Index due07/31/22and every 1year Adult Influenza Vaccine due09/04/22and every 1year Due Adult COVID-19 Vaccination due02/03/23Unknown Frequency Adult Tdap/Td Vaccine due02/03/23Unknown Frequency Diabetic Eye Exam due02/03/23Unknown Frequency Hepatitis C Screening due02/03/23One-time only Medicare Annual Wellness Visit due02/03/23and every 1year Pneumococcal Vaccine Older Adults due02/03/23One-time only Shingles Vaccine due02/03/23One-time only Due In Future Diabetes Management A1c not due until07/06/23and every Satisfied(in the past 1 year) Satisfied Diabetes Management A1c on07/05/22.Satisfied by Contributor_system, [id number] Diabetes Nephropathy Management on07/06/22.Satisfied by Contributor_system, [id number] Lipid Screening on07/05/22.Satisfied by Contributor_system, [email or web address] Patient Care team information Care Team Personnel Name: MAGY Hargrove Jessica A Position: Physician Asst Exmpt - Family Med Member Role: Primary Care Provider Address: Address: [address] [place] [address], [place] [address] [place]
--- OUTSIDE RECORDS SUMMARY | 2023-02-19 03:59 | External Medical Summary ---
Author Name Unknown Address Unknown Organization K01:[facility] [address] [place] [address] Laboratory Report Ordering Provider Test Date Status YOANNA VARGAS 01/06/2023 10:42:16 Final Observation Date Value Abnormality Reference (Units ) Status Magnesium 01/06/2023 10:42:16 2.3 1.5-2.6 (m g/dL) Final Performing Location [facility] [address] [facility] [id number]
--- OUTSIDE RECORDS SUMMARY | 2023-02-19 03:59 | External Medical Summary | Summary of Care ---
Author Name Unknown Organization [facility] Address [address] [facility] [place] [address] Phone [phone] Care Team Providers Care Belt Maker Name Role Phone Julieth Hargrove PA-C Primary Care Provide r Reason for Visit * Reason Onset Date Comments Advice 01/06/2023 Encounter Details Date Type Department Care Team (Late st Contact Info) Description 01/06/2023 Telephone Cardiology, [facility] [address] [place] [address] [place], DO [address] [place] [address] Advice Allergies No known active allergiesdocumented as [...] Nasal SolutionIndications: Other chronic sinusitis Administer 1 Dana into nostril in the morning and 1 Dana before bedtime. 30 mL 12 07/13/2016 Active [...] Oral Tablet (Cardura)Indications :Coronary artery disease involving [place] coronary artery of [place] heart without angina pectoris TAKE 1 TABLET [...] disorder 01/22/2014 Coronary artery disease invo lving [place] coronary artery of [place] heart without angina pectoris 02/24/2012 Dyslipidemia, goal LDL below 70 02/18/2009 Overview: Per Lipid Taxonomy. Gastroesophageal reflux disease without esophagi tis 01/14/2009 Chronic rhinitis 01/14/2009 Type 2 diabetes mellitus wit h hemoglobin A1c goal of less than 7.0% 01/02/2009 Overview: Per Diabetes Taxonomy. ICD-10 update of inactive term OLD MYOCARDIAL INFARCT 09/26/2008 Overview: Modified by Acute [place] Protocol #5. 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 MAMI (obstructive [...] When he checked out yesterday, 01/06, we schedule his carotied US for 1:00 the same day. Pt [...] 01/10/2023 3:00 PM EST Imaging Vascular Lab, [facility] 2nd Floor, [address] [place] [address] 01/12/2023 6:10 PM EST Anticoagulation Pharmacy, [address] [place] [id number] [facility] [address] [place] [address] 01/24/2023 1:30 PM EST Cardiac Studies Cardiac Studies, [address] [place] [address] 03/25/2023 2:00 PM EST Office Visit Cardiology, [address] [place] [address] Claudette Harper PA-C [address] [facility] [place] [address] Health Maintenance Due Date Last Done Comments [...] Completed 07/16/2016, 09/13/2012 Hepatitis B Completed 10/14/2016, 0311/2016, 04/15/2016 Pneumococcal Vaccine: 65+ Years Completed 11/15/2016, [...] filedocumented as of this encounter Care Teams Belt Maker Relationship Specialty Start Date End Date Julieth Hargrove PA-C [address] [place] [address], [place] [address] PCP - General Physician Radiology Manager 03/18/21 documented as of this encounter
--- OUTSIDE RECORDS SUMMARY | 2023-02-19 03:59 | External Medical Summary ---
Author Name Unknown Address Unknown Organization [id number]:[facility] [place] - [address] [facility] [facility] [address] Laboratory Report Ordering Provider Test Date Status YOANNA VARGAS 01/06/2023 10:42:16 Final Observation Date Value Abnormality Reference (Units ) Status TSH 01/06/2023 10:42:16 3.79 0.27-4.20 (uIU/mL) Final Performing Location [facility] [place] - [address] [facility] [address]
--- OUTSIDE RECORDS SUMMARY | 2023-02-19 03:59 | External Medical Summary ---
Author Name Unknown Address Unknown Organization [id number]:[facility] [place] [place] [address] - [address] [place] [address] Laboratory Report Ordering Provider Test Date Status YOANNA VARGAS 01/06/2023 10:42:16 Final Observation Date Value Abnormality Reference (Units ) Status BUN 01/06/2023 10:42:16 8 6-20 (mg/dL) Final Creatinine 01/06/2023 10:42:16 0.8 0.6-1.2 (mg/dL) Final Glomerular filtration rate/1.73 sq M.predicted [Volume Rate/Area] in Serum, Plasma or Blood by Creatinine-based formula (CKD-EPI) 01/06/2023 10:42:16 >90 >=60 (mL/min) Final eGFR is calculated based on the CKD-EPI 2020 equation SODIUM 01/06/2023 10:42:16 144 135-146 (m mol/L) Final Potassium 01/06/2023 10:42:16 4.3 3.5-5.1 (m mol/L) Final Cl 01/06/2023 10:42:16 105 98-107 (mm ol/L) Final CO2 01/06/2023 10:42:16 24 22-32 (mmo l/L) Final Anion gap 01/06/2023 10:42:16 15 7-15 (mmol /L) Final Glucose 01/06/2023 10:42:16 158 Above high normal 70 -120 (mg/dL) Final Albumin 01/06/2023 10:42:16 4.4 3.8-5.0 (g /dL) Final AST (Aspartate aminotransferase) 01/06/2023 10:42:16 26 10-50 (U/L) Fin al Alk Phos 01/06/2023 10:42:16 66 35-130 (U/ L) Final Bilirubin, Total 01/06/2023 10:42:16 0.9 <=1 .2 (mg/dL) Final Calcium 01/06/2023 10:42:16 9.6 8.4-10.2 ( mg/dL) Final Protein 01/06/2023 10:42:16 7.3 6.0-8.3 (g /dL) Final ALT (Alanine aminotransferase) 01/06/2023 10:42:16 28 10-50 (U/L) Jean-Claude mendez Performing Location [facility] [address] [facility] [address]
--- OUTSIDE RECORDS SUMMARY | 2023-02-19 03:59 | External Medical Summary | Summary of Care ---
Author Name Unknown Organization [facility] Address [address] [place] [address] Phone [phone] Care Team Providers Care Information Lead Name Role Phone Julieth Hargrove PA-C Primary Care Provide r Reason for Referral * Precert (Within 10 days (routine)) - Pending Review Specialty Diagnoses / Procedures Referred By Contac t Referred To Contact Cardiac Studies Diagnoses PAF (paroxysmal atrial fibrillation) (HCC) Dyslipidemia, goal LDL below 70 Chronic diastolic heart failure (HCC) Frequent PVCs NSVT (nonsustained ventricular tachycardia) (HCC) Vascular dementia with mood disturbance, unspecified dementia severity (HCC) Procedures ECHO, COMPLETE (2D), TRANS-THORACIC Ta Chi DO [address] [place] [address] Referral ID Status Reason Start Date Expiration Date Visits Requested Visits Authorized [id number] Pending Review Precert 01/06/2023 999 999 * Precert (Within 24 hrs (call dept; emergent)) - Authorized Specialty Diagnoses / Procedures Referred By Contac t Referred To Contact Radiology Diagnoses PAF (paroxysmal atrial fibrillation) (HCC) Vascular dementia with mood disturbance, unspecified dementia severity (HCC) Procedures CT HEAD/BRAIN WO CONTRAST Ta Chi DO [address] [place] [address] Referral ID Status Reason Start Date Expiration Date V isits Requested Visits Authorized [id number] Authorized Precert 01/06/2023 07/05/2023 999 999 Reason for Visit * Reason Comments Follow Up Encounter Details Date Type Department Care Team (Late st Contact Info) Description 01/06/2023 9:30 AM EDT Office Visit Cardiology, [facility] [address] [place] [address] Ta Chi DO [address] [place] [address] PAF (paroxysmal atrial fibrillation) (FORM[facility]LY [facility]; Dyslipidemia, goal LDL below 70; Chronic diastolic heart failure (HCC); Frequent PVCs; NSVT (nonsustained ventricular tachycardia) ([facility]LY [facility]); Vascular dementia with mood disturbance, unspecified dementia severity ([facility]) Allergies No known active allergiesdocumented as of this encounter (statuses as of 01/06/2023) Medications Medication Sig Dispensed Refills Start Date End Date Status ECOTRIN LOW STRENGTH 81 MG PO TBEC One pill by mouth once a day 0 11/08/2007 Active VITAMIN D 1000 UNITS PO CAPSIndications:Vi tamin D deficiency twice daily 30 Cap 11 06/01/2013 Active ACETAMINOPHEN 500 MG PO TABS Two pills by mouth every 6 hours as needed for fever or pain 100 Tab 0 08/21/2013 Active FOLIC ACID 1 MG PO TABS twice daily 0 Active CENTRUM SILVER PO TABS one tablet daily 0 03/12/2014 Active Saline 0.65 % Nasal SolutionIndication s:Other chronic sinusitis Administer 1 [place] into nostril in the morning and 1 [place] before bedtime. 30 mL 12 07/13/2016 Active Coenzyme Q10 (COQ10) 400 MG CAPS Take by mouth. 0 Active Nitroglycerin 0.4 MG Sublingual Tablet Sublingual (Nitrostat)Indicat ions:CAD (coronary artery disease) Maximum 3 doses.One pill under tongue every 5 minutes as needed for chest pain, maximum 3 doses 25 Tab 3 04/18/2020 Active Rosuvastatin Calcium 20 MG Oral Tablet (Crestor)Indicatio ns:Dyslipidemia, goal LDL below 70 TAKE 1 TABLET BY MOUTH ONCE DAILY 90 Tab 0 08/21/2020 Active Doxazosin Mesylate 1 MG Oral Tablet (Cardura)Indicatio ns:Coronary artery disease involving [place] coronary artery of [place] heart without angina pectoris TAKE 1 TABLET BY MOUTH EVERY EVENING 90 Tab 0 08/21/2020 Active Furosemide 40 MG Oral Tablet (Lasix)Indications :Chronic diastolic heart failure (HCC) TAKE 1 TABLET BY MOUTH DAILY. 90 Tab 0 08/21/2020 Active Warfarin Sodium 5 MG Oral Tablet (Coumadin)Indicati ons:Persistent atrial fibrillation (HCC) TAKE 1 TABLET BY MOUTH IN THE MORNING OR DIRECTED BY ANTI COAG CLINIC 90 Tablet 2 11/29/2022 Active Jardiance 10 MG Oral Tablet Take 1 Tablet by mouth in the morning. 0 10/14/2022 Active Atenolol 50 MG Oral Tablet (Tenormin)Indicati ons:PAF (paroxysmal atrial fibrillation) (HCC),Frequent PVCs,NSVT (nonsustained ventricular tachycardia) (HCC) One tablet by mouth two times per day 180 Tablet 3 01/06/2023 Active Dofetilide 125 MCG Oral Capsule (Tikosyn)Indicatio ns:PAF (paroxysmal atrial fibrillation) (HCC) TAKE 1 CAPSULE TWICE DAILY. 180 Capsule 3 12/17/2021 3 Discontinue d(Medicatio n/Dose Changed) Atenolol 50 MG Oral Tablet (Tenormin)Indicati ons:PAF (paroxysmal atrial fibrillation) (HCC),Coronary artery disease involving [place] coronary artery of [place] heart without angina pectoris Take 1 Tablet by mouth in the morning. 90 Tablet 3 04/06/2022 3 Discontinue d(Medicatio n/Dose Changed) Hospital, Clinic, or Other Facility Administered Medication Ordered Dose Route Frequency Start Date End Date Status albuterol (PROVENTIL HFA) inhaler 4 PuffIndications:COPD, moderate (HCC) 4 Puff IN Q4H PRN 03/14/2018 Active documented as of this encounter (statuses as of 01/06/2023) Active Problems Problem Noted Date Diagnosed Date [...] disorder 01/22/2014 Coronary artery disease invo lving [place] coronary artery of [place] heart without angina pectoris 02/24/2012 Dyslipidemia, goal LDL below 70 02/18/2009 Overview: Per Lipid Taxonomy. Gastroesophageal reflux disease without esophagi tis 01/14/2009 Chronic rhinitis 01/14/2009 Type 2 diabetes mellitus wit h hemoglobin A1c goal of less than 7.0% 01/02/2009 Overview: Per Diabetes Taxonomy. ICD-10 update of inactive term OLD MYOCARDIAL INFARCT 09/26/2008 Overview: Modified by Acute [place] Protocol #5. 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 MAMI (obstructive sleep apnea) 03/07/1994 Overview: 10/2012 -- auto CPAP 16 cwp 06/26/12 -- changed from [employer] to T&B 08/06/11 -- CPAP auto 13-16 cwp 2007 - REMstar Plus CPAP 15 cwp T&B Medical ACEI/ARB contraindicated documented as of this encounter (statuses as of 01/06/2023) Resolved Problems Problem Noted Date Diagnosed Date [...] as of this encounter (statuses as of 01/06/2023) Immunizations Name Administration Dates Next Due Hepatitis [...] on file documented as of this encounter Last Filed Vital Signs Vital Sign Reading Time Taken Comments Blood Pressure 122/80 01/06/2023 9:38 AM EDT Pulse 68 01/06/2023 9:38 AM EDT Temperature - - Respiratory Rate 18 01/06/2023 9:38 AM EDT Oxygen Saturation - - Inhaled Oxygen Concentration - - Weight 127.9 kg (282 lb) 01/06/2023 9:38 AM EDT Height - - Body Mass Index 41.64 10/14/2020 10:34 AM EDT documented in this encounter Patient Instructions * Patient Instructions* Ta Chi DO - 01/06/2023 10:20 AM EDT Increase atenolol 50 mg to one tablet by mouth two times per day , one in the morning and one at bedtime. The new prescription for the atenolol was sent to the [facility]. STOP TIKOSYN / DOFETILIDE . documented in this encounter Progress Notes * Ta Chi DO - 01/06/2023 9:55 AM EDT 01/06/2023 Cardiology Follow Up CHIEF COMPLAINT: Acute visit, abnormal ambulatory monitoring tech SUBJECTIVE: Isma Salcedo is a 72 year old year old male whom I have followed as an outpatient since October,. His recent cardiac history dates back to November of 2022 when I received a message from the anticoagulation Clinic that the patient was not adhering to the treatment plan with regards to his anticoagulation with Coumadin. I called him on the phone and encouraged him to come in for a follow-up visit with both the anticoagulation Clinic. He would in turn seen Cindy Garay our practice a month ago on 12/07/2022. During my phone conversation with the patient he would noted that his mental acuity did not seem to be would I recalled at the time I had most recently seenhim in person in 2020. When he arrived for his appointment a month ago, he did not have a good knowledge of his medications. The patient was counseled to wear a monitoring tech for 14 days and follow-up of atrial fibrillation to determine his atrial fibrillation burden. The results became available yesterday. The predominant rhythm was sinus rhythm with average rate of 75 beats per minute. One hundred nine brief episodes of nonsustained ventricular tachycardia were observed however the longest of which was 15 beats induration with average rate of 121 beats per minute. Sixty-one episodes of supraventricular tachycardia were observed, the longest of which was 13 seconds in duration with average rate of 129 beats per minute. Premature ventricular contractions were frequent, accounting for 10.3% of the total QRS complexes. The patient presented today with the assistance of a wheeled walker. 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 He brought his medication bottles with him today to complete a medication reconciliation, and had poor knowledge of his medications, and had difficulty with finding words. Problem List: Paroxysmal atrial fibrillation for which the patient is on a rhythm control strategy with dofetilide, and is on Coumadin for stroke prophylaxis. Currently NSR. 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 No anginal symptoms Nonischemic dobutamine stress echocardiogram, 2013 Dyslipidemia Hypertension Extensive ROS: All systems reviewed & are unremarkable except as noted in HPI & below Cardiovascular (chest pain/palpitations/fluttering/diaphoresis/dyspnea on exertion/paroxysmally nocturnal dyspnea):Negative Review of patient's allergies indicates: No Known Allergies Current Outpatient Medications Medication Sig Dispense Refill ECOTRIN LOW STRENGTH 81 MG PO TBEC One pill by mouth once a day VITAMIN D 1000 UNITS PO CAPS twice daily 30 Cap 11 ACETAMINOPHEN 500 MG PO TABS Two pills by mouth every 6 hours as needed for fever or pain 100 Tab 0 FOLIC ACID 1 MG PO TABS twice daily CENTRUM SILVER PO TABS one tablet daily Coenzyme Q10 (COQ10) 400 MG CAPS Take by mouth. Nitroglycerin 0.4 MG Sublingual Tablet Sublingual (Nitrostat) Maximum 3 doses.One pill under tongueevery 5 minutes as needed for chest pain, maximum 3 doses 25 Tab 3 Rosuvastatin Calcium 20 MG Oral Tablet (Crestor) TAKE 1 TABLET BY MOUTH ONCE DAILY 90 Tab 0 Doxazosin Mesylate 1 MG Oral Tablet (Cardura) TAKE 1 TABLET BY MOUTH EVERY EVENING 90 Tab 0 Furosemide 40 MG Oral Tablet (Lasix) TAKE 1 TABLET BY MOUTH DAILY. 90 Tab 0 Dofetilide 125 MCG Oral Capsule (Tikosyn) TAKE 1 CAPSULE TWICE DAILY. 180 Capsule 3 Atenolol 50 MG Oral Tablet (Tenormin) Take 1 Tablet by mouth in the morning. 90 Tablet 3 Warfarin Sodium 5 MG Oral Tablet (Coumadin) TAKE 1 TABLET BY MOUTH IN THE MORNING OR DIRECTED BYANTI COAG CLINIC 90 Tablet 2 Jardiance 10 MG Oral Tablet Take 1 Tablet by mouth in the morning. Saline 0.65 % Nasal Solution Administer 1 [place] into nostril in the morning and 1 [place] before bedtime. 30 mL 12 Current Facility-Administered Medications Medication Dose Route Frequency Provider Last Rate Last Admin albuterol (PROVENTIL HFA) inhaler 4 Puff 4 Puff Inhalation Q4H PRN Kennedi Haji MD 4 Puff at 03/14/18 1617 OBJECTIVE/PHYSICAL EXAMINATION: BP 122/80 | Pulse 68 | Resp 18 | Wt 127.9 kg (282 lb) | BMI 41.64 kg/m | BSA 2.5 m General: no acute distress and stated age Eyes: conjunctiva are pink and non-injected, sclera clear Neck: normal jugular venous pulse, no hepatojugular reflux Chest: normal shape and normal respiratory effort Lungs: clear to auscultation , no rales rhonchi or wheezing Cardiac Exam: - regular heart sounds, no murmurs, rubs, or gallops Abdomen: abdomen soft, non-tender, no abnormal masses and no hepatosplenomegaly Musculoskeletal: no gait disturbance, no weakness Extremities: 1+ bilateral lower extremity edema Neuro: grossly normal exam Psych: appropriate affect and insight. Data: Results for orders placed or performed in visit on 04/06/22 LIPID PANEL WITH DIRECT LDL IF TG IS HIGH Result Value Ref Range Triglycerides 109 <=174 mg/dL Cholesterol 140 <200 mg/dL HDL Cholesterol 39 (L) >39 mg/dL Non-HDL Cholesterol 101 <=159 mg/dL LDL Cholesterol 79 <=129 mg/dL EKG performed today 01/06/2023 and interpreted independently: Sinus rhythm 87 beats per minute withfrequent premature ventricular contractions. Summary of Zio Patch 12/07/22: Patient had a min HR of 49 bpm, max HR of 203 bpm, and avg HR of 75 bpm. Predominant underlying rhythm was Sinus Rhythm. 109 Ventricular Tachycardia runs occurred, the run with the fastest interval lasting 4 beats with a max rate of 203 bpm, the longest lasting 15 beats with an avg rate of 121 bpm. 61 Supraventricular Tachycardia runs occurred, the run with the fastest interval lasting 11.2 secs with a max rate of 182 bpm, the longest lasting 13.0 secs with an avg rate of 129 bpm. Seven patient triggered events were submitted for review. Patient triggered events correlated with sinus rhythm with premature ventricular contractions, and a 5 beat run of nonsustained ventricular tachycardia. Frequent premature ventricular contractions were observed, 10.3% PVC burden. No atrial fibrillation was observed. Results of CT of the head/brain performed today 01/06/2023: 1. Moderate generalized age-related cerebral parenchymal atrophy, possible mild chronic small vessel white matter ischemic changes, and early intracranial atherosclerotic disease. 2. Mild prominence of the lateral ventricles compared to other CSF containing spaces, which may be secondary to predominant loss of the deep white matter. Normal pressure hydrocephalus is considered less likely, but cannot be entirely excluded. ASSESSMENT / PLAN: 72 year old year old male Nonsustained ventricular tachycardia Frequent premature ventricular contractions Paroxysmal atrial fibrillation Stable coronary heart disease Chronic diastolic heart failure Cognitive impairment Diagnostics: Due to concerns with regards to the patient's cognitive impairment, a stent CT of the head/brain was requested and completed a Dorcas singh today, along with a CBC, comprehensive metabolic panel, magnesium level, folic acid level, B12, and TSH. A carotid duplex and follow-up echocardiogram were also requested. The CT results are outlined above, revealing findings suggestive of chronic small-vessel ischemic changes. At present, I do not think his history is necessarily compatible with normal pressure hydrocephalus, but is certainly is a consideration on the differential. The patient's renal function, sodium, and potassium were within normal limits, estimated GFR greater than 90 mL/minute per meter squared. Glucose 158 INR 2.3. Hemoglobin 17.5 and platelet count was within normal limits. Therapeutics: Given concerns of ventricular ectopy I have counseled the patient to discontinue dofetilide. The QTinterval was within normal limits at 469 milliseconds today, however given the degree of ventricular ectopy and nonsustained ventricular tachycardia episodes, dofetilide is felt to be contraindicatedfor him at present. Per review of his medications, he had been on atenolol at a dose of 25 milligrams twice daily for years and this was subsequently titrated to 50 milligrams twice daily in 2018 at the time of an episode of atrial fibrillation. Would appear that his most recent refill for this medication provided by primary care in August, was for a reduced dose of atenolol 50 milligrams 1 time per day. I have therefore sent a new prescription for the patient for atenolol 50 milligrams twice daily. Future considerations include transitioning him to metoprolol. The patient only had 6 tablets of dofetilide left in his pillbox, and these were disposed of on hisbehalf. His INR is therapeutic and he is to continue Coumadin for now. Future considerations include transitioning him to Eliquis. Cost is been a limiting factor in the past as well as concerns about his degree of obesity and use of direct oral anticoagulant agents, however I think he would be a reasonable candidate once we are able to confirm that he is taking his med ications correctly. Will plan on coordinating with his primary care provider who has Julieth Hargrove PA-C who will receive a copy of this note. With the patient's permission, I attempted to reach out to his daughter, Bushra, by phone lives in [place]. I was unable to connect with her, but I left a voicemail describing my concerns with regards to his decline in mental acuity since my previous visit with him in 2020. I spent a total of Greater than 55 mins (exact time 87 mins) on the date of service in preparation,delivery, and documentation of the care provided to Isma Salcedo excluding any time spent inthe performance of separately billed services. Including performing the patient's medication reconciliation, performing the above tests and subsequent interpretation of these tests, and counseling the patient with regards to treatment plan. DISPOSITION: Follow Up: Return in about 3 months (around 03/25/2023) for Clinic Visit. | For: Clinic Visit | Check-out note: CT today, labs today , echo within the next month. Ta Chi DO Cardiology, [address] [address] This chart was completed in part utilizing [employer] Speech Voice Recognition Software. Grammatical errors, random word insertions, prounoun errors, and incomplete sentences are an occasional consequence of this system due to software limitations, ambient noise, and hardware issues. Any formal questions or concerns about the content, text, or information contained within the body of this dictation should be directly addressed to the provider for clarification. documented in this encounter Procedure Notes * Ta Chi DO - 01/06/2023 9:47 AM EDTAssociated Order(s): EKG REASON FOR STUDY: routine/med managment CONCLUSIONS: Sinus rhythm with frequent Premature ventricular complexes Low voltage QRS, consider pulmonary disease, pericardial effusion, or normal variant Septal infarct (cited on or before 07-DEC-2022) Abnormal ECG When compared with ECG of 07-DEC-2022 15:14, No significant change was found Ventricular Rate: 87 Atrial Rate: 87 OR Interval: 176 QRS Duration: 84 QT/QTc: 390/469 ms P-R-T [place]: 65 : 71 : 67 degrees documented in this encounter Nursing Notes * Leena Pavon LPN - 01/06/2023 9:37 AM EDT Examination Room: 10 Name: Isma Salcedo Date of : 1950 Reason for Visit: Follow up Problems/Concerns: Denies, confused on medication Interim Hosp(s): denies Chest Pain/SOB: denies MyChart Discussed: ALREADY ACTIVE Patient was instructed to not get up on the exam table until directed and assisted by their provider; patient is to remain seated in the chair/ wheelchair/ exam table for fall prevention and safety reasons. Patient is aware to have assistance to step down off exam table with personnel. documented in this encounter Plan of Treatment Upcoming Encounters Date Type Department Care Team (Late st Contact Info) Description 01/12/2023 6:10 PM EST Anticoagulation Pharmacy, [address] [place] [address] [facility] [address] [place] [address] 01/24/2023 1:30 PM EST Cardiac Studies Cardiac Studies, [address] [place] [address] 03/25/2023 2:00 PM EST [address] [address] Claudette Harper PA-C [address] [place] [address] [place] [address] Pending Results Name Type Priority Associated Diagnoses Date /Time MAGNESIUM Lab Routine PAF (paroxysmal atrial fibrillation) ([facility]) Frequent PVCs NSVT (nonsustained ventricular tachycardia) ([facility]) 01/06/2023 10:42 AM EDT TSH WITH FREE T4 IF INDICATED Lab Routine PAF (paroxysmal atrial fibrillation) ([facility]) Chronic diastolic heart failure (HCC) 01/06/2023 10:42 AM EDT VITAMIN B12 Lab Routine NSVT (nonsustained ventricular tachycardia) (HCC) Vascular dementia with mood disturbance, unspecified dementia severity (HCC) 01/06/2023 10:42 AM EDT FOLIC ACID Lab Routine NSVT (nonsustained ventricular tachycardia) (HCC) Vascular dementia with mood disturbance, unspecified dementia severity (HCC) 01/06/2023 10:42 AM EDT Scheduled Orders Name Type Priority Associated Diagnoses Orde r Schedule MAGNESIUM Lab Routine PAF (paroxysmal atrial fibrillation) (HCC) Frequent PVCs NSVT (nonsustained ventricular tachycardia) (HCC) Expected: 01/06/2023, Expires: 01/07/2024 VASC DUPLEX CAROTID BILAT Medical Imaging Routine Vascular dementia with mood disturbance, unspecified dementia severity (HCC) Expected: 01/06/2023, Expires: 02/06/2024 ECHO, COMPLETE (2D), TRANS-THORACIC Echocardiology Routine PAF (paroxysmal atrial fibrillation) (HCC) Dyslipidemia, goal LDL below 70 Chronic diastolic heart failure (HCC) Frequent PVCs NSVT (nonsustained ventricular tachycardia) (HCC) Vascular dementia with mood disturbance, unspecified dementia severity (HCC) Expected: 01/06/2023 (Approximate), Expires: 01/07/2024 TSH WITH FREE T4 IF INDICATED Lab Routine PAF (paroxysmal atrial fibrillation) (HCC) Chronic diastolic heart failure (HCC) Expected: 01/06/2023, Expires: 01/07/2024 VITAMIN B12 Lab Routine NSVT (nonsustained ventricular tachycardia) (HCC) Vascular dementia with mood disturbance, unspecified dementia severity (HCC) Expected: 01/06/2023, Expires: 01/07/2024 FOLIC ACID Lab Routine NSVT (nonsustained ventricular tachycardia) (HCC) Vascular dementia with mood disturbance, unspecified dementia severity (HCC) Expected: 01/06/2023, Expires: 01/07/2024 Health Maintenance Due Date Last Done Comments Alpha-1 Antitrypsin 11/08/1967 Cologuard 1994 Sigmoidoscopy 1994 Fecal Occult Blood Test 07/21/2017 07/21/2016 *ADVANCE DIRECTIVE NOT ON FILE 10/22/2018 Diabetic Eye Exam 07/11/2019 07/10/2018, , 06/10/2016, Additional history exists Albumin/Creatinine Ratio 08/26/2020 020, 07/27/2018, 07/05/2017, Additional history exists Depression Screening 11/18/2020 11/19/2019 Diabetic Foot Exam 11/18/2020 11/19/2019, 1 , 03/28/2018, Additional history exists B-12 01/22/2021 01/23/2020, 07/05, 10/08/2008 HbA1c 10/04/2022 04/06/2022, 01/05, 08/27/2019, Additional history exists COVID-19 Vaccine ( season) 2022 05/20/2020, 04/29/2020 Influenza Vaccine (FLU shot) (#1) 2022 11/22/2020, 11/19/2019, 12/07/2018, Additional history exists O2 ASSESSMENT COMPLETED IN PAST YEAR FOR COPD 12/08/2023 12/07/2022 GFR 01/07/2024 01/06/2023, 03/09, 01/23/2020, Additional history [...] Not on filedocumented as of this encounter Procedures Procedure Name Priority Date/Time Associated Diagnosis Comments OR ECG ROUTINE ECG W/LEAST 12 LDS I&R ONLY Routine 01/06/2023 9:47 AM EDT PAF (paroxysmal atrial fibrillation) (HCC) Dyslipidemia, goal LDL below 70 Chronic diastolic heart failure (HCC) documented in this encounter Results * CT HEAD/BRAIN WO CONTRAST (01/06/2023 10:55 AM EDT) Anatomical Region Laterality Modality Head Computed Tomogra phy 01/06/2023 11:1 5 AM EDT Impressions 01/06/2023 11:13 AM EDT IMPRESSION 1. Moderate generalized age-related cerebral parenchymal atrophy, possible mild chronic small vessel white matter ischemic changes, and early intracranial atherosclerotic disease. 2. Mild prominence of the lateral ventricles compared to other CSF containing spaces, which may be secondary to predominant loss of the deep white matter. Normal pressure hydrocephalus is considered less likely, but cannot be entirely excluded. Narrative 01/06/2023 11:[address] scan of the head without contrast - 01/06/2023. HISTORY 72 years old male with atrial fibrillation and cognitive impairment. TECHNIQUE Multiple contiguous axial sections of the head were obtained from the vertex to the base of the skull. Axial and reformatted sagittal and coronal images were reviewed in bone, soft tissue, and brain windows. COMPARISON None. FINDINGS Moderate generalized age-related cerebral parenchymal atrophy is appreciated with compensatory dilatation of the ventricles, sulci, and basal cisterns. The lateral ventricles are dilated somewhat out of proportion compared to other CSF containing structures, which may be secondary to predominant loss of the deep white matter. Subtle small focal hypodensities in the bilateral cerebral white matter in the patient of this age probably represent mild chronic small vessel ischemic changes. Minimal atherosclerotic calcifications are noted in the intracranial carotid and vertebral arteries. There is no evidence of intracranial space-occupying lesion, edema, hemorrhage, mass effect, midline shift, hydrocephalus, or extraaxial fluid collection. The guy/white matter differentiation maintained. No calvarial abnormalities are detected. The [place] ocular lenses were surgically replaced; otherwise, the intraorbital contents are within normal limits. The paranasal sinuses and mastoid air cells are clear and well aerated. Degenerative changes are present in the imaged upper cervical spine. Procedure Note Kit Avila MD - 01/06/[address] scan of the head without contrast - 01/06/2023. HISTORY 72 years old male with atrial fibrillation and cognitive impairment. TECHNIQUE Multiple contiguous axial sections of the head were obtained from thevertex to the base of the skull. Axial and reformatted sagittal andcoronal images were reviewed in bone, soft tissue, and brain windows. COMPARISON None. FINDINGS Moderate generalized age-related cerebral parenchymal atrophy isappreciated with compensatory dilatation of the ventricles, sulci, andbasal cisterns. The lateral ventricles are dilated somewhat out ofproportion compared to other CSF containing structures, which may besecondary to predominant loss of the deep white matter. Subtle smallfocal hypodensities in the bilateral cerebral white matter in the patientof this age probably represent mild chronic small vessel ischemic changes.Minimal atherosclerotic calcifications are noted in the intracranialcarotid and vertebral arteries. There is no evidence of intracranialspace-occupying lesion, edema, hemorrhage, mass effect, midline shift,hydrocephalus, or extraaxial fluid collection. The guy/white matterdifferentiation maintained. No calvarial abnormalities are detected. Thenative ocular lenses were surgically replaced; otherwise, the intraorbitalcontents are within normal limits. The paranasal sinuses and mastoid air cells are clear and well aerated. Degenerative changes are present in theimaged upper cervical spine. IMPRESSION IMPRESSION 1. Moderate generalized age-related cerebral parenchymal atrophy,possible mild chronic small vessel white matter ischemic changes, andearly intracranial atherosclerotic disease. 2. Mild prominence of the lateral ventricles compared to other CSFcontaining spaces, which may be secondary to predominant loss of the deepwhite matter. Normal pressure hydrocephalus is considered less likely,but cannot be entirely excluded. Ta Chi DO RAD CT * (ABNORMAL) PT INR (01/06/2023 10:42 AM EDT) Prothrombin Time 25.4(H) 11.6 - 15.2 seconds 01/06/2023 11:20 AM EDT [facility] INR 2.3(H) 0.8 - 1.2 01/06/2023 11:20 AM EDT [facility] Blood Venous blood specimen / Unknown Venipuncture / Unknown 01/06/2023 10:42 AM EDT 01/06/2023 10:42 AM EDT Narrative [facility] - 01/06/2023 11:20 AM EDT Warfarin Therapy INR: 2.0-3.0 conventional anticoagulation INR: 2.5-3.5 high intensity anticoagulation Ta Chi DO LAB BLOOD ORDERABLES [facility] [address] [place] [address] * (ABNORMAL) COMPREHENSIVE METABOLIC PANEL (01/06/2023 10:42 AM EDT) BUN 8 6 - 20 mg/dL 01/06/2023 1:22 PM EDT [facility] Creatinine 0.8 0.6 - 1.2 mg/dL 01/06/2023 1:22 PM EDT [facility] Estimated Glomerular Filtration Rate >90 >=60 mL/min 01/06/2023 1:22 PM EDT [facility] Comment:eGFR is calculated b ased on the CKD-EPI 2020 equation Sodium 144 135 - 146 mmol/L 01/06/2023 1:22 PM EDT [facility]-10 Potassium 4.3 3.5 - 5.1 mmol/L 01/06/2023 1:22 PM EDT [facility]10 Chloride 105 98 - 107 mmol/L 01/06/2023 1:22 PM EDT [facility] 57-10 CO2 24 22 - 32 mmol/L 01/06/2023 1:22 PM EDT [facility] Anion Gap 15 7 - 15 mmol/L 01/06/2023 1:22 PM EDT [facility]10 Glucose 158(H) 70 - 120 mg/dL 01/06/2023 1:22 PM EDT [facility] 57-10 Albumin 4.4 3.8 - 5.0 g/dL 01/06/2023 1:22 PM EDT [facility] 57[facility]10 AST 26 10 - 50 U/L 01/06/2023 1:22 PM EDT [facility] 57-10 Alkaline Phosphatase 66 35 - 130 U/L 01/06/2023 1:22 PM EDT [facility] Bilirubin, Total 0.9 <=1.2 mg/dL 01/06/2023 1:22 PM EDT [facility]10 Calcium 9.6 8.4 - 10.2 mg/dL 01/06/2023 1:22 PM EDT [facility]10 Protein 7.3 6.0 - 8.3 g/dL 01/06/2023 1:22 PM EDT [facility]10 ALT 28 10 - 50 U/L 01/06/2023 1:22 PM EDT [facility] Blood Venous blood specimen / Unknown Venipuncture / Unknown 01/06/2023 10:42 AM EDT 01/06/2023 10:42 AM EDT Ta Chi DO LAB BLOOD ORDERABLES Performing Organization Address [facility] Co de Phone Number [facility] [place] [phone] * EKG (01/06/2023 9:47 AM EDT) 01/06/2023 9:47 AM EDT Narrative Procedure Note Ta Chi, - 01/06/2023 9:47 AM EDT REASON FOR STUDY: routine/med managment CONCLUSIONS: Sinus rhythm with frequent Premature ventricular complexes Low voltage QRS, consider pulmonary disease, pericardial effusion, ornormal variant Septal infarct (cited on or before 07-DEC-2022) Abnormal ECG When compared with ECG of 07-DEC-2022 15:14, No significant change was found Ventricular Rate: 87 Atrial Rate: 87 OR Interval: 176 QRS Duration: 84 QT/QTc: 390/469 ms P-R-T [place]: 65 : 71 : 67 degrees Ta Chi DO EKG Performing Organization Address City/[facility]/ZIP Co de Phone Number [facility] documented in this encounter Visit Diagnoses Diagnosis PAF (paroxysmal atrial fibrillation) (HCC)- Primary Atrial fibrillation Dyslipidemia, goal LDL below 70 Other and unspecified hyperlipidemia Chronic diastolic heart failure (HCC) Chronic diastolic heart failure Frequent PVCs Other premature beats NSVT (nonsustained ventricular tachycardia) (HCC) Paroxysmal ventricular tachycardia Vascular dementia with mood disturbance, unspecified dementia severity (HCC) PAF (paroxysmal atrial fibrillation) (HCC) Atrial fibrillation Vascular dementia with mood disturbance, unspecified dementia severity (HCC) documented in this encounter Care Teams Information Lead Relationship Specialty Start Date End Date Julieth Hargrove PA-C [address] [place] [phone] PCP - General Physician Pre Wave Assembler 03/18/21 documented as of this encounter"
--- OUTSIDE RECORDS SUMMARY | 2023-02-19 03:59 | External Medical Summary | Summary of Care ---
Author Name Unknown Organization [facility] Address [address] [facility] [place] [address] Phone [phone] Care Team Providers Care System Manager Name Role Phone Julieth Hargrove PA-C Primary Care Provide r Reason for Visit * Reason Comments Outpatient Testing Encounter Details Date Type Department Care Team (Late st Contact Info) Description 01/06/2023 10:40 AM EDT Laboratory Laboratory, [facility] [address] [place] [phone] [facility] [address] [place] [address] PAF (paroxysmal atrial fibrillation) ([facility]); Frequent PVCs; NSVT (nonsustained ventricular tachycardia) ([facility]); Chronic diastolic heart failure (HCC); Vascular dementia with mood disturbance, unspecified dementia severity ([facility]) Allergies No known active allergiesdocumented as of [...] Nasal SolutionIndications: Other chronic sinusitis Administer 1 [place] into nostril in the morning and 1 [place] before bedtime. 30 mL 12 07/13/2016 Active [...] Oral Tablet (Cardura)Indications :Coronary artery disease involving [place] coronary artery of [place] heart without angina pectoris TAKE 1 TABLET [...] disorder 01/22/2014 Coronary artery disease invo lving [place] coronary artery of [place] heart without angina pectoris 02/24/2012 Dyslipidemia, goal [...] on file documented as of this encounter Plan of Treatment Upcoming Encounters Date Type Department Care Team (Late st Contact Info) Description 01/06/2023 11:30 AM EDT Imaging Radiology [facility] 1st [facility], [address] [place] [address] PAF (paroxysmal atrial fibrillation) (HCC); Vascular dementia with mood disturbance, unspecified dementia severity (HCC) 01/06/2023 1:00 PM EDT Imaging Vascular Lab, [facility] 2nd [facility], [address] [place] [address] 01/12/2023 6:10 PM EST Anticoagulation Pharmacy, [address] [place] [address] [facility] [address] [place] [address] 01/24/2023 1:30 PM EST Cardiac Studies Cardiac Studies, [address] [place] [address] 03/25/2023 2:00 PM EST Office Visit Cardiology, [facility] [address] [place] [address] Claudette Harper PA-C [address] [place] [address] Pending Results Name Type Priority Associated Diagnoses Date /Time COMPREHENSIVE METABOLIC PANEL Lab Routine PAF (paroxysmal atrial fibrillation) ([facility]) Frequent PVCs NSVT (nonsustained ventricular tachycardia) ([facility]) 01/06/2023 10:42 AM EDT PT INR Lab Routine PAF (paroxysmal atrial fibrillation) ([facility]) Frequent PVCs NSVT (nonsustained ventricular tachycardia) ([facility]) 01/06/2023 10:42 AM EDT MAGNESIUM Lab Routine PAF (paroxysmal atrial fibrillation) ([facility]) Frequent PVCs NSVT (nonsustained ventricular tachycardia) ([facility]) 01/06/2023 10:42 AM EDT TSH WITH FREE T4 IF INDICATED Lab Routine PAF (paroxysmal atrial fibrillation) (HCC) Chronic diastolic heart failure (HCC) 01/06/2023 10:42 AM EDT VITAMIN B12 Lab Routine NSVT (nonsustained ventricular tachycardia) ([facility]) Vascular dementia with mood disturbance, unspecified dementia severity ([facility]) 01/06/2023 10:42 AM EDT FOLIC ACID Lab Routine NSVT (nonsustained ventricular tachycardia) ([facility]) Vascular dementia with mood disturbance, unspecified dementia severity ([facility]) 01/06/2023 10:42 AM EDT Health Maintenance Due Date Last Done Comments [...] 2022 11/22/2020, 11/19/2019, 12/07/2018, Additional history exists GFR 04/06/2023 04/06/2022, 01/05, 08/27/2019, Additional history exists O2 ASSESSMENT COMPLETED IN PAST YEAR FOR COPD 12/08/2023 12/07/2022 DTaP,Tdap,and Td Vaccines (2 - Td or [...] Procedure Name Priority Date/Time Associated Diagnosis Comments DIFFERENTIAL, AUTOMATED Routine 01/06/2023 10:42 AM EDT PAF (paroxysmal atrial fibrillation) (HCC) Frequent PVCs NSVT (nonsustained ventricular tachycardia) (HCC) CBC Routine 01/06/2023 10:42 AM EDT PAF (paroxysmal atrial fibrillation) (HCC) Frequent PVCs NSVT (nonsustained ventricular tachycardia) (HCC) CBC Routine 01/06/2023 10:42 AM EDT PAF (paroxysmal atrial fibrillation) (HCC) Frequent PVCs NSVT (nonsustained ventricular tachycardia) (HCC) documented in this encounter Results * (ABNORMAL) DIFFERENTIAL, AUTOMATED (01/06/2023 10:42 AM EDT) WBC 11.77(H) 4.00 - 10.80 K/uL 01/06/2023 11:01 AM EDT [facility] Neutrophils % 76.4(H) 40.0 - 75.0 % 01/06/2023 11:01 AM EDT [facility] [place] [facility] Lymphocytes % 11.7(L) 18.0 - 42.0 % 01/06/2023 11:01 AM EDT [facility] Monocytes % 9.5 1.0 - 11.0 % 01/06/2023 11:01 AM EDT [facility] Eosinophils % 1.8 0.0 - 6.0 % 01/06/2023 11:01 AM EDT [facility] Basophils % 0.6 0.0 - 2.0 % 01/06/2023 11:01 AM EDT [facility] Absolute Neutrophils 8.99(H) 1.80 - 7.70 K/uL 01/06/2023 11:01 AM EDT [facility] Absolute Lymphocytes 1.38 1.00 - 4.80 K/ul 01/06/2023 11:01 AM EDT [facility] [place] Absolute Monocytes 1.12(H) 0.00 - 1.10 K/uL 01/06/2023 11:01 AM EDT [facility] [place] [facility] Absolute Eosinophils 0.21 0.00 - 0.70 K/uL 01/06/2023 11:01 AM EDT [facility] Absolute Basophils 0.07 0.00 - 0.20 K/uL 01/06/2023 11:01 AM EDT [facility] [place] [facility] Blood Venous blood specimen / Unknown Venipuncture / Unknown 01/06/2023 10:42 AM EDT 01/06/2023 10:42 AM EDT [place] [facility]YANT LAB BLOOD ORDERABLES [facility] [place] [facility] [facility] [place] [address] * (ABNORMAL) CBC (01/06/2023 10:42 AM EDT) WBC 11.77(H) 4.00 - 10.80 K/uL 01/06/2023 11:01 AM EDT [facility] [place] RBC 5.57 4.50 - 5.25 M/uL 01/06/2023 11:01 AM EDT [facility]10 HGB 17.5(H) 14.0 - 16.8 g/dL 01/06/2023 11:01 AM EDT [facility] [place] [facility] HCT 50.8(H) 40.0 - 48.4 % 01/06/2023 11:01 AM EDT [facility] [place] MCV 91.2 82.0 - 99.5 fL 01/06/2023 11:01 AM EDT [facility] MCH 31.4 27.0 - 34.0 pg 01/06/2023 11:01 AM EDT [facility] [place] [facility] MCHC 34.4 32.0 - 36.0 g/dL 01/06/2023 11:01 AM EDT [facility] [place] [facility] RDW 14.3 11.5 - 15.5 % 01/06/2023 11:01 AM EDT [facility] [place]10 PLT 237 140 - 400 K/uL 01/06/2023 11:01 AM EDT [facility] [place] [facility] MPV 10.6 6.6 - 11.1 fL 01/06/2023 11:01 AM EDT [facility] [place] [facility] Blood Venous blood specimen / Unknown Venipuncture / Unknown 01/06/2023 10:42 AM EDT 01/06/2023 10:42 AM EDT Ta Chi DO LAB BLOOD ORDERABLES [facility]10 [address] [facility] [place] [address] documented in this encounter Visit Diagnoses Diagnosis PAF (paroxysmal atrial fibrillation) (HCC) Atrial fibrillation Vascular dementia with mood disturbance, unspecified dementia severity (HCC) PAF (paroxysmal atrial fibrillation) (HCC) Atrial fibrillation Frequent PVCs Other premature beats NSVT (nonsustained ventricular tachycardia) (HCC) Paroxysmal ventricular tachycardia Chronic diastolic heart failure (HCC) Chronic diastolic heart failure Vascular dementia with mood disturbance, unspecified dementia severity (HCC) documented in this encounter Care Teams System Manager Relationship Specialty Start Date End Date Julieth Hargrove PA-C [address] [place] [address] PCP - General Physician Mink Rancher 03/18/21 documented as of this encounter
--- OUTSIDE RECORDS SUMMARY | 2023-02-19 03:59 | External Medical Summary ---
Author Name Unknown Address Unknown Organization [id number] - [address] [place] [id number] Laboratory Report Ordering Provider Test Date Status YOANNA VARGAS 01/06/2023 10:42:16 Final Warfarin Therapy
INR: 2 .0-3.0 conventional anticoagulation
INR: 2.5- 3.5 high intensity anticoagulation Observation Date Value Abnormality Reference (Units ) Status PT 01/06/2023 10:42:16 25.4 Above high normal 11 .6-15.2 (seconds) Final INR 01/06/2023 10:42:16 2.3 Above high normal 0. 8-1.2 Final Performing Location [facility]1 0 - [address] [place] [id number]
--- OUTSIDE RECORDS SUMMARY | 2023-02-19 03:59 | External Medical Summary | Summary of Care ---
Author Name Unknown Organization [facility] Address [address] [place] [address] Phone [phone] Care Team Providers Care Electronic Die Maker Name Role Phone Julieth Hargrove PA-C Primary Care Provide r Reason for Referral * Precert (Within 10 days (routine)) - Pending Review Specialty Diagnoses / Procedures Referred By Contac t Referred To Contact Radiology Diagnoses PAF (paroxysmal atrial fibrillation) (HCC) Vascular dementia with mood disturbance, unspecified dementia severity (HCC) Procedures MRI BRAIN WITHOUT CONTRAST Ta Chi DO [address] [place] [address] Referral ID Status Reason Start Date Expiration Date V isits Requested Visits Authorized [id number] Pending Review 01/08/2023 999 999 Reason for Visit * Reason Comments Follow Up * Precert (Within 24 hrs (call dept; emergent)) - Authorized Specialty Diagnoses / Procedures Referred By Contac t Referred To Contact Radiology Diagnoses PAF (paroxysmal atrial fibrillation) (HCC) Vascular dementia with mood disturbance, unspecified dementia severity (HCC) Procedures CT HEAD/BRAIN WO CONTRAST Ta Chi DO [address] [place] [address] Referral ID Status Reason Start Date Expiration Date V isits Requested Visits Authorized [id number] Authorized Precert 01/06/2023 07/05/2023 999 999 Encounter Details Date Type Department Care Team (Late st Contact Info) Description 01/06/2023 11:30 AM EDT Imaging Radiology [facility] 1st [facility], [address] [place] [address] PAF (paroxysmal atrial fibrillation) (HCC); Vascular dementia with mood disturbance, unspecified dementia severity (HCC) Allergies No known active allergiesdocumented as of [...] Nasal SolutionIndications: Other chronic sinusitis Administer 1 [place] into nostril in the morning and 1 [place] before bedtime. 30 mL 12 07/13/2016 Active [...] Oral Tablet (Cardura)Indications :Coronary artery disease involving [place] coronary artery of [place] heart without angina pectoris TAKE 1 TABLET [...] disorder 01/22/2014 Coronary artery disease invo lving [place] coronary artery of [place] heart without angina pectoris 02/24/2012 Dyslipidemia, goal LDL below 70 02/18/2009 Overview: Per Lipid Taxonomy. Gastroesophageal reflux disease without esophagi tis 01/14/2009 Chronic rhinitis 01/14/2009 Type 2 diabetes mellitus wit h hemoglobin A1c goal of less than 7.0% 01/02/2009 Overview: Per Diabetes Taxonomy. ICD-10 update of inactive term OLD MYOCARDIAL INFARCT 09/26/2008 Overview: Modified by Acute IA Protocol #5. 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 MAMI (obstructive [...] Influenza, Split, I IV3, With Preserve, Inj 11/12/2014,11/28/2013,11/21/2012,05/2011,11/08/2011,11/16/2010,01/01/20,12/16/2008,01/06/2008 11/13/2015 TD - Tetanus/Diptheria (ADULT) 03/07/2004 TDAP [...] as of this encounter Progress Notes * Ta Chi DO - 01/07/2023 9:41 AM EDT Cardiology nursing: Please notify patient by phone that his CT scan looked good, evidence of chronic small-vessel atherosclerotic disease of the brain, but no stroke. I would like for him to have an MRI of the brain for more detailed evaluation. I will place the order. Blood work also looked good. Ta Chi DO documented in this encounter Miscellaneous Notes * Result Encounter Note - Ta Chi DO - 01/07/2023 9:[address] scan looked good, evidence of chronic small-vessel atherosclerotic disease of the brain, but no stroke. I would like for him to have an MRI of the brain for more detailed evaluation. I will place the order. Refer to separate phone encounter. Ta Chi DO documented in this encounter Plan of Treatment Upcoming Encounters Date Type Department Care Team (Late st Contact Info) Description 01/10/2023 3:00 PM EST Imaging Vascular Lab, [facility] II 2nd Floor, [address] [place] [address] 01/12/2023 6:10 PM EST Anticoagulation Pharmacy, [address] [place] [address] [facility] [address] [place] [address] 01/24/2023 1:30 PM EST Cardiac Studies Cardiac Studies, [address] [place] [address] 03/25/2023 2:00 PM EST Office Visit Cardiology, [address] [place] [address] Claudette Harper PA-C [address] [place] [address] [place] [address] Scheduled Orders Name Type Priority Associated Diagnoses Orde r Schedule MRI BRAIN WITHOUT CONTRAST Medical Imaging Routine PAF (paroxysmal atrial fibrillation) (HCC) Vascular dementia with mood disturbance, unspecified dementia severity (HCC) Expected: 01/08/2023, Expires: 02/07/2024 Health Maintenance Due Date Last Done Comments [...] Procedure Name Priority Date/Time Associated Diagnosis Comments CT HEAD/BRAIN WO CONTRAST STAT 01/06/2023 10:55 AM EDT PAF (paroxysmal atrial fibrillation) (HCC) Vascular dementia with mood disturbance, unspecified dementia severity (HCC) documented in this encounter Results * [...] shift, hydrocephalus, or extraaxial fluid collection. The frye/white matter differentiation maintained. No calvarial abnormalities are detected. The [place] ocular lenses were surgically replaced; otherwise, the [...] midline shift,hydrocephalus, or extraaxial fluid collection. The frye/white matterdifferentiation maintained. No calvarial abnormalities are detected. [...] entirely excluded. Ta Chi DO RAD CT documented in this encounter Visit Diagnoses Diagnosis PAF (paroxysmal atrial fibrillation) (HCC) Atrial fibrillation Vascular dementia with mood disturbance, unspecified dementia severity (HCC) documented in this encounter Care Teams Electronic Die Maker Relationship Specialty Start Date End Date Julieth Hargrove PA-C [address] [place] [address] PCP - General Physician Vision Teacher 03/18/21 documented as of this encounter
--- OUTSIDE RECORDS SUMMARY | 2023-02-19 04:00 | External Medical Summary ---
Author Name Unknown Address Unknown Organization [facility]10 - [address] [place] [id number] Laboratory Report Ordering Provider Test Date Status YOANNA VARGAS 01/06/2023 10:42:16 Final Observation Date Value Abnormality Reference (Units ) Status WBC, Total 01/06/2023 10:42:16 11.77 Above high normal 4 .00-10.80 (K/uL) Final RBC 01/06/2023 10:42:16 5.57 4.50-5.25 (M/uL) Final Hemoglobin 01/06/2023 10:42:16 17.5 Above high normal 1 4.0-16.8 (g/dL) Final HCT 01/06/2023 10:42:16 50.8 Above high normal 40 .0-48.4 (%) Final MCV 01/06/2023 10:42:16 91.2 82.0-99.5 (fL) Final MCH 01/06/2023 10:42:16 31.4 27.0-34.0 (pg) Final MCHC 01/06/2023 10:42:16 34.4 32.0-36.0 (g/dL) Final RDW 01/06/2023 10:42:16 14.3 11.5-15.5 (%) Final Platelets 01/06/2023 10:42:16 237 140-400 (K /uL) Final MPV 01/06/2023 10:42:16 10.6 6.6-11.1 ( fL) Final Performing Location [facility]-1 0 - [address] [place] [address]
--- OUTSIDE RECORDS SUMMARY | 2023-02-19 04:00 | External Medical Summary ---
Author Name Unknown Address Unknown Organization [facility] - [address] [place] [id number] Laboratory Report Ordering Provider Test Date Status YOANNA VARGAS 01/06/2023 10:42:16 Final Observation Date Value Abnormality Reference (Units ) Status SYNC LEUKOCYTES IN BLOOD BY AUTOMATED COUNT 01/06/2023 10:42:16 11.77 Above high normal 4.00-10.80 (K/uL) Final Segs 01/06/2023 10:42:16 76.4 Above high normal 40.0-75.0 (%) Final Lymphs % 01/06/2023 10:42:16 11.7 Below low normal 18.0-42.0 (%) Final Monos 01/06/2023 10:42:16 9.5 1.0-11.0 (%) Final Eosinophils 01/06/2023 10:42:16 1.8 0.0-6.0 (%) Final Basos 01/06/2023 10:42:16 0.6 0.0-2.0 (%) Final Absolute Segs 01/06/2023 10:42:16 8.99 Above high normal 1.80-7.70 (K/uL) Final Lymphs, absolute 01/06/2023 10:42:16 1.38 1.00-4.80 (K/ul) Final Monos, Abs 01/06/2023 10:42:16 1.12 Above high normal 0.00-1.10 (K/uL) Final Eos, Abs 01/06/2023 10:42:16 0.21 0.00-0.70 (K/uL) Final Basos, Abs 01/06/2023 10:42:16 0.07 0.00-0.20 (K/uL) Final Performing Location [facility]-[address] 0 - [address] [place] [address]
--- OUTSIDE RECORDS SUMMARY | 2023-02-19 04:00 | External Medical Summary | Summary of Care ---
Author Name Unknown Organization [facility] Address [address] [facility] [place] [address] Phone [phone] Care Team Providers Care Aircraft Metalsmith Name Role Phone Julieth Hargrove PA-C Primary Care Provide r Reason for Visit * Reason Onset Date Comments FYI 11/29/2022 Encounter Details Date Type Department Care Team Description 11/29/2022 Telephone Pharmacy Call Center [address] [facility] [place] [address] [address] [facility] [place] [address] [facility] [place] [address] FYI Allergies No known active allergiesdocumented as of this encounter (statuses as of 11/29/2022) Medications Medication Sig Dispensed Refills Start Date End Date Status ECOTRIN LOW STRENGTH 81 MG PO TBEC One pill by mouth once a day 0 11/08/2007 Active VITAMIN D 1000 UNITS PO CAPSIndications:V itamin D deficiency twice daily 30 Cap 11 06/01/2013 Active ACETAMINOPHEN 500 MG PO TABS Two pills by mouth every 6 hours as needed for fever or pain 100 Tab 0 08/21/2013 Active FOLIC ACID 1 MG PO TABS twice daily 0 Active CENTRUM SILVER PO TABS one tablet daily 0 03/12/2014 Active Saline 0.65 % Nasal SolutionIndicatio ns:Other chronic sinusitis Administer 1 [place] into nostril in the morning and 1 [place] before bedtime. 30 mL 12 07/13/2016 Active Coenzyme Q10 (COQ10) 400 MG CAPS Take by mouth. 0 Active Albuterol Sulfate HFA 108 (90 Base) MCG/ACT Inhalation Aerosol SolutionIndicatio ns:COPD, severity to be determined ([facility]) Inhale 3 Puffs by mouth every 4 hours as needed for Wheezing. 54 g 3 12/03/2019 Active Spacer/Aero-Holdi ng Chambers DeviceIndications :COPD exacerbation ([facility]) Use with inhaler. 1 Each 0 12/03/2019 Active metFORMIN HCl ER 500 MG Oral Tablet Extended Release 24 Hour (GLUCOPHAGE XR)Indications:Ty pe 2 diabetes mellitus with hemoglobin A1c goal of less than 7.0% ([facility]) Take 2 Tabs by mouth daily. 180 Tab 3 12/03/2019 Active buPROPion HCl ER (XL) 300 MG Oral Tablet Extended Release 24 Hour (Wellbutrin XL)Indications:Ot her depression Take 1 Tab by mouth daily. 90 Tab 1 12/03/2019 Active Nitroglycerin 0.4 MG Sublingual Tablet Sublingual (Nitrostat)Indica tions:CAD (coronary artery disease) Maximum 3 doses.One pill under tongue every 5 minutes as needed for chest pain, maximum 3 doses 25 Tab 3 04/18/2020 Active Additional Information Patient not taking.Reported on 04/06/2022 Rosuvastatin Calcium 20 MG Oral Tablet (Crestor)Indicati ons:Dyslipidemia, goal LDL below 70 TAKE 1 TABLET BY MOUTH ONCE DAILY 90 Tab 0 08/21/2020 Active Doxazosin Mesylate 1 MG Oral Tablet (Cardura)Indicati ons:Coronary artery disease involving [place] coronary artery of [place] heart without angina pectoris TAKE 1 TABLET BY MOUTH EVERY EVENING 90 Tab 0 08/21/2020 Active Furosemide 40 MG Oral Tablet (Lasix)Indication s:Chronic diastolic heart failure ([facility]) TAKE 1 TABLET BY MOUTH DAILY. 90 Tab 0 08/21/2020 Active Advair Diskus 250-50 MCG/DOSE Inhalation Aerosol Powder Breath Activated Inhale 1 Puff by mouth in the morning. 0 02/16/2021 Active Dofetilide 125 MCG Oral Capsule (Tikosyn)Indicati ons:PAF (paroxysmal atrial fibrillation) ([facility]) TAKE 1 CAPSULE TWICE DAILY. 180 Capsule 3 12/17/2021 Active Atenolol 50 MG Oral Tablet (Tenormin)Indicat ions:PAF (paroxysmal atrial fibrillation) ([facility]),Coronary artery disease involving [place] coronary artery of [place] heart without angina pectoris Take 1 Tablet by mouth in the morning. 90 Tablet 3 04/06/2022 Active Warfarin Sodium 5 MG Oral Tablet (Coumadin)Indicat ions:Persistent atrial fibrillation (HCC) TAKE 1 TABLET BY MOUTH IN THE MORNING OR DIRECTED BY ANTI COAG CLINIC 90 Tablet 2 11/29/2022 Active Warfarin Sodium 5 MG Oral Tablet (Coumadin)Indicat ions:Persistent atrial fibrillation (HCC) TAKE 1 TABLET BY MOUTH IN THE MORNING OR DIRECTED BY ANTI COAG CLINIC 90 Tablet 2 07/27/2022 3 Discontinue d(Refill) Hospital, Clinic, or Other Facility Administered Medication Ordered Dose Route Frequency Start Date End Date Status albuterol (PROVENTIL HFA) inhaler 4 PuffIndications:COPD, moderate (HCC) 4 Puff IN Q4H PRN 03/14/2018 Active documented as of this encounter (statuses as of 11/29/2022) Active Problems Problem Noted Date Persistent atrial fibrillation 3 Peripheral venous insufficiency 03/18/19 22 Body mass index (BMI) of 45.0 to 49.9 in adult 12/17/2019 Overview: Per Obesity protocol - - COPD, group C, by GOLD 2017 classificati on 10/16/2018 Overview: Per COPD GOLD Classification Type 2 diabetes mellitus wit h diabetic nephropathy, without long-term current use of insulin 07/24/2018 Chronic diastolic heart failure 05/31/19 19 Asymmetrical sensorineural hearing loss 11/18/2017 PAF (paroxysmal atrial fibrillation) 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 Ventral hernia without obstruction or ga ngrene 09/02/2014 Mild single current episode of major dep ressive disorder 01/22/2014 Coronary artery disease invo lving win[place] coronary artery of [place] heart without angina pectoris 02/24/2012 Dyslipidemia, goal LDL below 70 02/19/20 09 Overview: Per Lipid Taxonomy. Gastroesophageal reflux disease without esophagitis 01/14/2009 Chronic rhinitis 01/14/2009 Type 2 diabetes mellitus with hemoglobin A1c [...] as of this encounter (statuses as of 11/29/2022) Resolved Problems Problem Noted Date Resolved Date Morbid obesity with BMI of 50.0-59.9, adult 05/0512/20/2019 Overview: Per Obesity protocol #1 - - Body mass index (BMI) of 45.0 to 49.9 in adult 1 05/16/2018 Overview: Per Obesity protocol #1 - - Body mass index (BMI) of 40.0 to 44.9 in adult 0 10/18/2017 12/19/2017 Overview: Per Obesity protocol #1 - COPD, moderate 07/08/2017 10/19/2018 Overview: Per COPD GOLD Classification Hemorrhoids, external without complications 01/0507/24/2018 Persistent atrial fibrillation 10/16/2016 0 10/29/2016 Palpitations 06/23/2015 12/23/2016 Pre-operative cardiovascular examination 014 01/22/2014 HTN, goal below 140/90 08/27/2013 4 Benign neoplasm of colon 02/12/2009 013 Overview: adenomatous polyp--repeat 2-3 years HTN, goal below 130/80 02/11/2009 2 Chronic otitis externa 01/14/2009 3 Dysfunction of eustachian tube 01/14/2009 0 05/26/2012 Sensorineural hearing loss, bilateral 01/14/2009 05/26/2012 Pilonidal cyst with abscess 05/06 documented as of this encounter (statuses as of 11/29/2022) Immunizations Name Administration Dates Next Due Hepatitis [...] drink = 0.6 oz pur e alcohol) Food Insecurity Answer Date Recorded Within the past 12 months, y ou worried that your food would run out before you got money to buy more. Never true 11/19/2019 Within the past 12 months, t he food you bought just didn't last and you didn't have money to get more. Never true 11/19/2019 Sex Assigned at Date Recorded Male 07/27/2018 3:34 PM E DT Job Start Date Occupation Industry Not on file Not on file Not on file documented as of this encounter Miscellaneous Notes * Addendum Note - Suzanne Vazquez RPh - 11/29/2022 10:29 AM EDTAddended by: SUZANNE VAZQUEZ on: 11/29/2022 10:29 AM Modules accepted: Orders * Telephone Encounter - Suzanne Vazuqez RP - 11/29/2022 10:26 AM EDT Noted, will refill and patient to resume warfarin. Patient Phone Numbers Spoke to patient via phone. Sent in refill of warfarin and patient will resume immediately. Suzanne Vazquez Pharm D, BCACP Clinical Pharmacist 11/29/2022, 10:27 AM * Telephone Encounter - CRYS Cross - 11/29/2022 10:16 AM EDT Caller's name: isma Dowling call back number(OFFICE NUMBER FOR ): [phone] Reason for call: pt calling in to r/s ofs and mentioned he has not taken his warfarin for a month or so. I did put in for a refill. Thank you, Kim Jeter Assistant Professor Of Economics [facility] ([facility]) (Formerly Telepharmacy) 11/29/2022,10:16 AM documented in this encounter Plan of Treatment Upcoming Encounters Date Type Specialty Care Team Description 12/07/2022 Office Visit Cardiology Cindy Poon PA-C [address] [place] [id number] 12/08/2022 Anticoagulation Pharmacy [facility] [place] [address] [place] [address] Health Maintenance Due Date Last Done Comments Alpha-1 Antitrypsin 11/08/1967 O2 ASSESSMENT COMPLETED IN PAST YEAR FOR COPD 11/08/1967 Cologuard 1994 Sigmoidoscopy 1994 Fecal Occult Blood Test 07/21/2017 07/21/2016 *ADVANCE DIRECTIVE NOT ON FILE 10/22/2018 DIABETES-EYE EXAM 07/11/2019 07/10/2018, , 06/10/2016, Additional history exists COVID-19 Vaccine (3 - Pfizer series) 07/15/2020 05/20/2020, 04/29/2020 Albumin/Creatinine Ratio 08/26/2020 020, 07/27/2018, 07/05/2017, Additional history exists Depression Screening 11/18/2020 11/19/2019 Diabetic Foot Exam 11/18/2020 11/19/2019, 1 , 03/28/2018, Additional history exists B-12 01/22/2021 01/23/2020, 07/05, 10/08/2008 HbA1c 10/04/2022 04/06/2022, 01/05, 08/27/2019, Additional history exists Influenza Vaccine (FLU shot) (#1) 2022 11/22/2020, 11/19/2019, 12/07/2018, Additional history exists GFR 04/06/2023 04/06/2022, 01/05, 08/27/2019, Additional history exists DTaP,Tdap,and Td Vaccines (2 [...] encounter Visit Diagnoses Diagnosis Persistent atrial fibrillation (HCC) Atrial fibrillation documented in this encounter Care Teams Aircraft Metalsmith Relationship Specialty Start Date End Date Julieth Hargrove PA-C [address] [place] [address], [place] [address] PCP - General Physician Erp Analyst 03/18/21 documented as of this encounter
--- OUTSIDE RECORDS SUMMARY | 2023-02-19 04:00 | External Medical Summary ---
Author Name Unknown Address Unknown Organization K0G:[facility] [address] [place] [id number] Laboratory Report Ordering Provider Test Date Status NANDINI KARIMI 12/08/2022 13:00:11 Final Therapeutic ranges for non-o perative patients:
Prophylaxsis/treatment of DVT: (Range:2.0-3.0)
Treatment of pulmonary embolism:(Range:2.0-3.0)
Prevention of systemic embolism from:
-tissue heart valves
-acute myocardial infarction
-valvular heart disease
-atrial fibrillation
(Range: 2.0-3.0)
Mechanical prosthetic valves: (Range: 2.5-3.5) Observation Date Value Abnormality Reference (Units ) Status INR in Capillary blood by Coagulation assay 12/08/2022 13:00:11 1.3 (INR) Final Performing Location [facility] [address] [place] [id number]
--- OUTSIDE RECORDS SUMMARY | 2023-02-19 04:00 | External Medical Summary | Summary of Care ---
Author Name Unknown Organization [facility] Address [address] Care Team Providers Care Saddle And Side Wire Stitcher Name Role Phone Julieth Hargrove PA-C Primary Care Provide r Reason for Referral * Evaluate & Treat - Unlimited Visits (Within 3 days (urgent)) - Pending Review Specialty Diagnoses / Procedures Referred By Delaney healy Referred To Contact ANTI-COAG CLINIC / Pharmacy Diagnoses Persistent atrial fibrillation (HCC) Ta Chi, DO [address] [place] [address] Referral ID Status Reason Start Date Expiration Date Visits Requested Visits Authorized [id number] Pending Review Specialty Services Required 11/19/2022 05/18/2023 99 99 Question Answer Referral Priority Within 3 days (urgent) Comments Indication for Anticoagulation: Diagnosis: paroxysmal atrial fibrillation Relevant History: none Initiation date of anticoagulation: 11/19/2022, already on chronic coumadin . Expected duration of Anticoagulation therapy: Lifetime Target INR range (indicate desired range): Atrial Fibrillation 2.0 - 3.0 Referral for Low Molecular Weight Therapy: N/A Minimum frequency patient should be seen in person for medication management: as appropriate per clinical condition and patient status By my signature, I understand that my patient Isma Salcedo will have his medication therapy managed by the [facility] Medication [facility] ([facility]) per established policies, procedures, and protocols. I also certify that this referral may serve as an initiation of service for the management of drug therapy in the above noted patient. [facility] providers will be responsible for scheduling patient visits, obtaining appropriate laboratory studies, and adjusting medication management therapy per patient's need, in addition to those roles spelled out in the clinic policy, procedures, and drug management protocols. I understand that the service provided by the [facility] is voluntary and have informed patient that they can refuse the service at their discretion. I am aware that the [facility] will provide me with a copy of the patient encounter via my [employer]. I authorize the [facility] to carry out these activities on my behalf. I consider this program to be a necessary part of the patient's medical care. Ta Chi DO Reason for Visit * Reason Onset Date Comments FYI 11/05/2022 Appointment 11/05/2022 Encounter Details Date Type Department Care Team Description 11/05/2022 Telephone Pharmacy, [facility] [address] [facility] [place] [address] [place] [address] FYI (/); Appointment Allergies No known active allergiesdocumented as of this encounter (statuses as of 11/22/2022) Medications Medication Sig Dispensed Refills Start Date End Date Status ECOTRIN LOW STRENGTH 81 MG PO TBEC One pill by mouth once a day 0 11/08/2007 Active VITAMIN D 1000 UNITS PO CAPSIndications:Vit jarquin D deficiency twice daily 30 Cap 11 06/01/2013 Active ACETAMINOPHEN 500 MG PO TABS Two pills by mouth every 6 hours as needed for fever or pain 100 Tab 0 08/21/2013 Active FOLIC ACID 1 MG PO TABS twice daily 0 Active CENTRUM SILVER PO TABS one tablet daily 0 03/12/2014 Active Saline 0.65 % Nasal SolutionIndications :Other chronic sinusitis Administer 1 [place] into nostril in the morning and 1 [place] before bedtime. 30 mL 12 07/13/2016 Active Coenzyme Q10 (COQ10) 400 MG CAPS Take by mouth. 0 A ctive Albuterol Sulfate HFA 108 (90 Base) MCG/ACT Inhalation Aerosol SolutionIndications :COPD, severity to be determined (HCC) Inhale 3 Puffs by mouth every 4 hours as needed for Wheezing. 54 g 3 12/03/2019 Active Spacer/Aero-Holding Chambers DeviceIndications:C OPD exacerbation (HCC) Use with inhaler. 1 Each 0 12/03/2019 Active metFORMIN HCl ER 500 MG Oral Tablet Extended Release 24 Hour (GLUCOPHAGE XR)Indications:Type 2 diabetes mellitus with hemoglobin A1c goal of less than 7.0% ([facility]) Take 2 Tabs by mouth daily. 180 Tab 3 12/03/2019 Active buPROPion HCl ER (XL) 300 MG Oral Tablet Extended Release 24 Hour (Wellbutrin XL)Indications:Othe r depression Take 1 Tab by mouth daily. 90 Tab 1 12/03/2019 Active Nitroglycerin 0.4 MG Sublingual Tablet Sublingual (Nitrostat)Indicati ons:CAD (coronary artery disease) Maximum 3 doses.One pill under tongue every 5 minutes as needed for chest pain, maximum 3 doses 25 Tab 3 04/18/2020 Active Additional Information Patient not taking.Reported on 04/06/2022 Rosuvastatin Calcium 20 MG Oral Tablet (Crestor)Indication s:Dyslipidemia, goal LDL below 70 TAKE 1 TABLET BY MOUTH ONCE DAILY 90 Tab 0 08/21/2020 Active Doxazosin Mesylate 1 MG Oral Tablet (Cardura)Indication s:Coronary artery disease involving [place]uhaaviatam coronary artery of yuhaaviatam heart without angina pectoris TAKE 1 TABLET BY MOUTH EVERY EVENING 90 Tab 0 08/21/2020 Active Furosemide 40 MG Oral Tablet (Lasix)Indications: Chronic diastolic heart failure (HCC) TAKE 1 TABLET BY MOUTH DAILY. 90 Tab 0 08/21/2020 Active Advair Diskus 250-50 MCG/DOSE Inhalation Aerosol Powder Breath Activated Inhale 1 Puff by mouth in the morning. 0 02/16/2021 Active Dofetilide 125 MCG Oral Capsule (Tikosyn)Indication s:PAF (paroxysmal atrial fibrillation) (HCC) TAKE 1 CAPSULE TWICE DAILY. 180 Capsule 3 12/17/2021 Active Atenolol 50 MG Oral Tablet (Tenormin)Indicatio ns:PAF (paroxysmal atrial fibrillation) (HCC),Coronary artery disease involving yuhaaviatam coronary artery of yuhaaviatam heart without angina pectoris Take 1 Tablet by mouth in the morning. 90 Tablet 3 04/06/2022 Active Warfarin Sodium 5 MG Oral Tablet (Coumadin)Indicatio ns:Persistent atrial fibrillation (HCC) TAKE 1 TABLET BY MOUTH IN THE MORNING OR DIRECTED BY ANTI COAG CLINIC 90 Tablet 2 07/27/2022 Active Hospital, Clinic, or Other Facility Administered Medication Ordered Dose Route Frequency Start Date End Date Status albuterol (PROVENTIL HFA) inhaler 4 PuffIndications:COPD, moderate (HCC) 4 Puff IN Q4H PRN 03/14/2018 Active documented as of this encounter (statuses as of 11/22/2022) Active Problems Problem Noted Date Persistent atrial [...] disorder 01/22/2014 Coronary artery disease invo lving yuhaaviatam coronary artery of yuhaaviatam heart without angina pectoris 02/24/2012 Dyslipidemia, goal LDL below 70 02/19/20 09 Overview: Per Lipid Taxonomy. Gastroesophageal reflux disease without esophagitis 01/14/2009 Chronic rhinitis 01/14/2009 Type 2 diabetes mellitus with hemoglobin A1c goal of less than 7.0% 01/02/2009 Overview: Per Diabetes Taxonomy. ICD-10 update of inactive term OLD MYOCARDIAL INFARCT 09/26/2008 Overview: Modified by Acute SC Protocol #5. 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 MAMI (obstructive sleep apnea) 03/07/1994 Overview: 10/2012 -- auto CPAP 16 cwp 06/26/12 -- changed from [employer] to T&B 08/06/11 -- CPAP auto 13-16 cwp 2007 - REMstar Plus CPAP 15 cwp T&B Medical ACEI/ARB contraindicated documented as of this encounter (statuses as of 11/22/2022) Resolved Problems Problem Noted Date Resolved Date [...] as of this encounter (statuses as of 11/22/2022) Immunizations Name Administration Dates Next Due Hepatitis [...] encounter Miscellaneous Notes * Telephone Encounter - Quinn Barroso CPhT - 11/22/2022 8:43 AM EDT Patient Phone Numbers Spoke with patient and scheduled OFS appointment. Appointment scheduled as noted below. 12/02/22 Thank you, Quinn Barroso CPhT Car Scrubber [facility] Services ([facility]) (formerly Telepharmacy) 11/22/2022,8:43 AM * Telephone Encounter - Ta Chi DO - 11/19/2022 4:39 PM EDT I called patient and reached out to him with regards to any concerns he had to make sure that he has another provider moving forward if he is no longer following with this practice. He requires follow-up because he was on dofetilide, and he was on Coumadin. His impression was that he could not be seen anymore because I was not seeing patients. I think overall this was simply a case of miscommunication. The patient had an appointment on 10/22/2022 that was canceled because of coverage issues on my part, and he just needs to be rescheduled. He is agreeable to following with our cardiology team, he is agreeable to following up with the [facility]. He should not be discharged from the [facility] clinic with regards to his Coumadin. I will place another referral. Ta Chi DO * Telephone Encounter - Suzanne Vazquez RPh - 11/05/2022 12:[address] Chi/Cindy, Please be aware that patient declines to follow with [facility] or any [facility] provider at this time. [facility] will discharge per patient preference but wishes prescribing/referring provider/department to be aware of termination of relationship by patient. Suzanne Vazquez, Pharm D, BCACP Clinical Pharmacist 11/05/2022, 12:05 PM * Telephone Encounter - CRYS Cristobal - 11/05/2022 11:54 AM EDT Caller's name: Isma Preferred call back number(OFFICE NUMBER FOR ): [phone] Reason for call: patient calling to cancel upcoming [facility] appointment stating he had a "run in" with Dr. Chi's office and he will no longer be following with any [facility] facility or provider, states he does not have a new doctor yet but regardless will not be seeing any [facility] providers in the future. Socorro Munoz MA Black Oxide Operator I [facility] ([facility]) (formerly Telepharmacy) [address] [facility] [address] [place] [address] ext [phone] documented in this encounter Plan of Treatment Upcoming Encounters Date Type Specialty Care Team Description 12/02/2022 Anticoagulation Pharmacy [facility] [place] [address] [place] [address] 12/07/2022 Office Visit Cardiology Cindy Poon PA-C [address] [place] [address] Scheduled Referrals Name Type Priority Associated Diagnoses Orde r Schedule ANTI-COAGULATION REFERRAL OP Referral Within 3 days (urgent) Persistent atrial fibrillation (HCC) Ordered: 11/19/2022 Health Maintenance Due Date Last Done Comments [...] fibrillation documented in this encounter Care Teams Saddle And Side Wire Stitcher Relationship Specialty Start Date End Date Julieth Hargrove PA-C [address] [facility], [place] [address] PCP - General Physician Hydrotreater Operator 03/18/21 documented as of this encounter
--- OUTSIDE RECORDS SUMMARY | 2023-02-19 04:00 | External Medical Summary | Summary of Care ---
Author Name Unknown Organization [facility] Address [address] [facility] [place] [address] Phone [phone] Care Team Providers Care Business Intelligence Etl Developer Name Role Phone Julieth Hargrove PA-C Primary Care Provide r Encounter Details Date Type Department Care Team Description 12/14/2022 Telephone Cardiology, [facility] [address] [place] [id number] Cindy Poon PA-C [address] [place] [id number] Allergies No known active allergiesdocumented as of this encounter (statuses as of 12/14/2022) Medications Medication Sig Dispensed Refills Start Date [...] Nasal SolutionIndications :Other chronic sinusitis Administer 1 Panther into nostril in the morning and 1 Panther before bedtime. 30 mL 12 07/13/2016 Active Coenzyme Q10 (COQ10) 400 MG CAPS Take by mouth. 0 A ctive Nitroglycerin 0.4 MG Sublingual Tablet Sublingual (Nitrostat)Indicati ons:CAD (coronary artery disease) Maximum 3 doses.One pill under tongue every 5 minutes as needed for chest pain, maximum 3 doses 25 Tab 3 04/18/2020 Active Rosuvastatin Calcium 20 MG Oral Tablet (Crestor)Indication s:Dyslipidemia, goal LDL below 70 TAKE 1 TABLET BY MOUTH ONCE DAILY 90 Tab 0 08/21/2020 Active Doxazosin Mesylate 1 MG Oral Tablet (Cardura)Indication s:Coronary artery disease involving [place] coronary artery of [place] heart without angina pectoris TAKE 1 TABLET BY MOUTH EVERY EVENING 90 Tab 0 08/21/2020 Active Furosemide 40 MG Oral Tablet (Lasix)Indications: Chronic diastolic heart failure (HCC) TAKE 1 TABLET BY MOUTH DAILY. 90 Tab 0 08/21/2020 Active Dofetilide 125 MCG Oral Capsule (Tikosyn)Indication s:PAF (paroxysmal atrial fibrillation) (HCC) TAKE 1 CAPSULE TWICE DAILY. 180 Capsule 3 12/17/2021 Active Atenolol 50 MG Oral Tablet (Tenormin)Indicatio ns:PAF (paroxysmal atrial fibrillation) (HCC),Coronary artery disease involving [place] coronary artery of [place] heart without angina pectoris Take 1 Tablet by mouth in the morning. 90 Tablet 3 04/06/2022 Active Warfarin Sodium 5 MG Oral Tablet (Coumadin)Indicatio ns:Persistent atrial fibrillation (HCC) TAKE 1 TABLET BY MOUTH IN THE MORNING OR DIRECTED BY ANTI COAG CLINIC 90 Tablet 2 11/29/2022 Active Jardiance 10 MG Oral Tablet Take 1 Tablet by mouth in the morning. 0 10/14/2022 Active Hospital, Clinic, or Other Facility Administered Medication Ordered Dose Route Frequency Start Date End Date Status albuterol (PROVENTIL HFA) inhaler 4 PuffIndications:COPD, moderate (HCC) 4 Puff IN Q4H PRN 03/14/2018 Active documented as of this encounter (statuses as of 12/14/2022) Active Problems Problem Noted Date PVC (premature ventricular contraction) 12/08/2022 Persistent atrial fibrillation 3 Peripheral venous insufficiency [...] 01/22/2014 Coronary artery disease invo lving [place] coronary artery of [place] heart without angina pectoris 02/24/2012 Dyslipidemia, goal LDL below 70 02/19/20 Overview: Per Lipid Taxonomy. Gastroesophageal reflux disease without esophagitis 01/14/2009 Chronic rhinitis 01/14/2009 Type 2 diabetes mellitus with hemoglobin A1c goal of less than 7.0% 01/02/2009 Overview: Per Diabetes Taxonomy. ICD-10 update of inactive term OLD MYOCARDIAL INFARCT 09/26/2008 Overview: Modified by Acute DE Protocol #5. 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 MAMI (obstructive sleep apnea) 03/07/1994 Overview: 10/2012 -- auto CPAP 16 cwp 06/26/12 -- changed from [employer] to [facility] 08/06/11 -- CPAP auto 13-16 cwp 2007 - REMstar Plus CPAP 15 cwp [facility] Medical ACEI/ARB contraindicated documented as of this encounter (statuses as of 12/14/2022) Resolved Problems Problem Noted Date Resolved Date [...] as of this encounter (statuses as of 12/14/2022) Immunizations Name Administration Dates Next Due Hepatitis [...] encounter Miscellaneous Notes * Telephone Encounter - DIO Parker - 12/14/2022 1:00 PM EDT noted * Telephone Encounter - Cindy Poon PA-C - 12/14/2022 12:53 PM EDT Patient was to have nurse visit to review medications and fasting labs last week. Did not come. I'm hoping he comes to new patient appt with family practice today. Can we call him and remind him to bring his medications. He was very confused at his visit last week in regards to meds and what he is taking. I was not able to adjust any meds as we weren't sure what he is taking. FYI to Ms. Moser documented in this encounter Plan of Treatment Upcoming Encounters Date Type Specialty Care Team Description 12/14/2022 Office Visit Family Medicine Selina Moser CRNP [address] [place] [phone] 01/05/2023 Anticoagulation Pharmacy [facility] [address] [place] [phone] 03/25/2023 Office Visit Cardiology Claudette Harper PA-C [address] [place] [id number] Health Maintenance Due Date Last Done Comments [...] 08/27/2019, Additional history exists COVID-19 Vaccine (3 2022- season) 2022 05/20/2020, 04/29/2020 Influenza Vaccine (FLU [...] filedocumented as of this encounter Care Teams Business Intelligence Etl Developer Relationship Specialty Start Date End Date Julieth Hargrove PA-C [address] [facility], [place] [address] PCP - General Physician Snaker 03/18/21 documented as of this encounter
--- OUTSIDE RECORDS SUMMARY | 2023-02-19 04:00 | External Medical Summary | Summary of Care ---
Author Name Unknown Organization [facility] Address [address] [facility] [place] [address] Phone [phone] Care Team Providers Care Seed Expert Name Role Phone Julieth Hargrove PA-C Primary Care Provide r Reason for Visit * Reason Comments Follow Up Encounter Details Date Type Department Care Team Description 12/07/2022 Office Visit Cardiology, [facility] [address] [place] [id number] Cindy Poon PA-C [address] [place] [id number] PAF (paroxysmal atrial fibrillation) (HCC)*; Dyslipidemia, goal LDL below 70; Chronic diastolic heart failure (HCC); PVC (premature ventricular contraction); Edema, unspecified type Allergies No known active allergiesdocumented as of this encounter (statuses as of 12/08/2022) Medications Medication Sig Dispensed Refills Start Date [...] Nasal SolutionIndication s:Other chronic sinusitis Administer 1 [place] into nostril in the morning and 1 [place] before bedtime. 30 mL 12 07/13/2016 Active [...] Oral Tablet (Cardura)Indicatio ns:Coronary artery disease involving [place] coronary artery of [place] heart without angina pectoris TAKE 1 TABLET BY MOUTH EVERY EVENING 90 Tab 0 08/21/2020 Active Furosemide 40 MG Oral Tablet (Lasix)Indications :Chronic diastolic heart failure (HCC) TAKE 1 TABLET BY MOUTH DAILY. 90 Tab 0 08/21/2020 Active Dofetilide 125 MCG Oral Capsule (Tikosyn)Indicatio ns:PAF (paroxysmal atrial fibrillation) (HCC) TAKE 1 CAPSULE TWICE DAILY. 180 Capsule 3 12/17/2021 Active Atenolol 50 MG Oral Tablet (Tenormin)Indicati ons:PAF (paroxysmal atrial fibrillation) (HCC),Coronary artery disease involving [place]ix coronary artery of [place] heart without angina pectoris Take 1 Tablet by mouth in the morning. 90 Tablet 3 04/06/2022 Active Warfarin Sodium 5 MG Oral Tablet (Coumadin)Indicati ons:Persistent atrial fibrillation (HCC) TAKE 1 TABLET BY MOUTH IN THE MORNING OR DIRECTED BY ANTI COAG CLINIC 90 Tablet 2 11/29/2022 Active Jardiance 10 MG Oral Tablet Take 1 Tablet by mouth in the morning. 0 10/14/2022 Active Albuterol Sulfate HFA 108 (90 Base) MCG/ACT Inhalation Aerosol SolutionIndication s:COPD, severity to be determined ([facility]) Inhale 3 Puffs by mouth every 4 hours as needed for Wheezing. 54 g 3 12/03/2019 3 Discontinue d(Patient preference/ discontinua tion) Spacer/Aero-Holdin g Chambers DeviceIndications: COPD exacerbation ([facility]) Use with inhaler. 1 Each 0 12/03/2019 3 Discontinue d(Patient preference/ discontinua tion) metFORMIN HCl ER 500 MG Oral Tablet Extended Release 24 Hour (GLUCOPHAGE XR)Indications:Typ e 2 diabetes mellitus with hemoglobin A1c goal of less than 7.0% (HCC) Take 2 Tabs by mouth daily. 180 Tab 3 12/03/2019 3 Discontinue d(Patient preference/ discontinua tion) buPROPion HCl ER (XL) 300 MG Oral Tablet Extended Release 24 Hour (Wellbutrin XL)Indications:Oth er depression Take 1 Tab by mouth daily. 90 Tab 1 12/03/2019 3 Discontinue d(Patient preference/ discontinua tion) Advair Diskus 250-50 MCG/DOSE Inhalation Aerosol Powder Breath Activated Inhale 1 Puff by mouth in the morning. 0 02/16/2021 3 Discontinue d(Patient preference/ discontinua tion) Hospital, Clinic, or Other Facility Administered Medication Ordered Dose Route Frequency Start Date End Date Status albuterol (PROVENTIL HFA) inhaler 4 PuffIndications:COPD, moderate (HCC) 4 Puff IN Q4H PRN 03/14/2018 Active documented as of this encounter (statuses as of 12/08/2022) Active Problems Problem Noted Date PVC (premature [...] disorder 01/22/2014 Coronary artery disease invo lving [place] croix coronary artery of [place] heart without angina pectoris 02/24/2012 Dyslipidemia, goal LDL below 70 02/19/20 09 Overview: Per Lipid Taxonomy. Gastroesophageal reflux disease without esophagitis 01/14/2009 Chronic rhinitis 01/14/2009 Type 2 diabetes mellitus with hemoglobin A1c goal of less than 7.0% 01/02/2009 Overview: Per Diabetes Taxonomy. ICD-10 update of inactive term OLD MYOCARDIAL INFARCT 09/26/2008 Overview: Modified by Acute AR Protocol #5. 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 MAMI (obstructive sleep apnea) 03/07/1994 Overview: 10/2012 -- auto CPAP 16 cwp 06/26/12 -- changed from [employer] to T&B 08/06/11 -- CPAP auto 13-16 cwp 2007 - REMstar Plus CPAP 15 cwp T&B Medical ACEI/ARB contraindicated documented as of this encounter (statuses as of 12/08/2022) Resolved Problems Problem Noted Date Resolved Date [...] as of this encounter (statuses as of 12/08/2022) Immunizations Name Administration Dates Next Due Hepatitis [...] 25 Q uit: 08/19/1997 Smokeless Tobacco: Never Tobacco Cessation:Counseling Given: Not Answered Alcohol Use Standard Drinks/Week Comments No 0 [...] Sign Reading Time Taken Comments Blood Pressure 128/66 12/07/2022 3:01 PM EDT Pulse 72 12/07/2022 3:01 PM EDT Temperature - - Respiratory Rate 16 12/07/2022 3:01 PM EDT Oxygen Saturation 95% 12/07/2022 3:01 PM EDT Inhaled Oxygen Concentration - - Weight 133.1 kg (293 lb 8 oz) 12/07/2022 3:01 PM EDT Height - - Body Mass Index 43.34 10/14/2020 10:34 AM EDT documented in this encounter Patient Instructions * Patient Instructions* Cindy Poon PA-C - 12/07/2022 3:33 PM EDT Wear heart monitor for 2 weeks. Fasting blood work tomorrow. Nothing to eat after midnight. May have water or diet soda Nurse visit tomorrow to go over medication list. Bring medications with you Schedule a family practice doctor appt documented in this encounter Progress Notes * Cindy Poon PA-C - 12/07/2022 2:55 PM EDT Cardiology F/U: CHIEF COMPLAINT: Follow up, history of paroxysmal atrial fibrillation, chronic coronary heart disease, dyslipidemia, edema due to venous insufficiency SUBJECTIVE: Isma Salcedo is a 72 year old male who presents today for routine cardiology follow-up. Last clinic evaluation approximately 9 months ago with the undersigned. Primary cardiologistis Dr. Chi. Problem List: Paroxysmal atrial fibrillation for which the patient is on a rhythm control strategy with dofetilide, and is on Coumadin for stroke prophylaxis. Currently NSR. 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 No anginal symptoms Nonischemic dobutamine stress echocardiogram, 2013 Dyslipidemia - controlled Hypertension Venous insuffiencey - S/P venous ablation in Mar 2021 - no recent evaluation? Patient presents today feeling "ok". He admits to not being compliant with all his medications. He is unsure what he is taking and what he is not taking. He admits to worsening palpitations, almost daily, but is not sure this is afib. He is NSR today with PVC's. He admits to "letting himself go" in regards to his health. He has retired and "become lazy". He notes significant LE edema. He does not think he is taking his diuretic. He denies chest pain. No dizziness or lightheadedness. BP controlled Weight is down, but edema seems worse. Review of Systems: See HPI for pertinent positives. All others negative, other than those noted in HPI. Patient Active Problem List Diagnosis Code MAMI (obstructive sleep apnea) G47.33 Generalized OA M15.9 OLD MYOCARDIAL INFARCT I25.2 Type 2 diabetes mellitus with hemoglobin A1c goal of less than 7.0% ([facility]) E11.9 Gastroesophageal reflux disease without esophagitis K21.9 Chronic rhinitis J31.0 Dyslipidemia, goal LDL below 70 E78.5 Coronary artery disease involving [place] croix coronary artery of [place] croix heart without angina pectoris I25.10 Mild single current episode of major depressive disorder ([facility]) F32.0 ACEI/ARB contraindicated Z53.09 Ventral hernia without obstruction or gangrene K43.9 BPH with obstruction/lower urinary tract symptoms N40.1, N13.8 PAF (paroxysmal atrial fibrillation) ([facility]) I48.0 Asymmetrical sensorineural hearing loss H90.3 Chronic diastolic heart failure ([facility]) I50.32 Type 2 diabetes mellitus with diabetic nephropathy, without long-term current use of insulin ([facility]) E11.21 COPD, group C, by GOLD 2017 classification ([facility]) J44.9 Body mass index (BMI) of 45.0 to 49.9 in adult ([facility]) Z68.42 Peripheral venous insufficiency I87.2 Persistent atrial fibrillation ([facility]) I48.19 Review of patient's allergies indicates: No Known [...] CENTRUM SILVER PO TABS one tablet daily Saline 0.65 % Nasal Solution Administer 1 [place] into nostril in the morning and 1 [place] before bedtime. 30 mL 12 Coenzyme Q10 (COQ10) 400 MG CAPS Take by mouth. Albuterol Sulfate HFA 108 (90 Base) MCG/ACT Inhalation Aerosol Solution Inhale 3 Puffs by mouth every 4 hours as needed for Wheezing. 54 g 3 Spacer/Aero-Holding Chambers Device Use with inhaler. 1 Each 0 metFORMIN HCl ER 500 MG Oral Tablet Extended Release 24 Hour (GLUCOPHAGE XR) Take 2 Tabs by mouth daily. 180 Tab 3 buPROPion HCl ER (XL) 300 MG Oral Tablet Extended Release 24 Hour (Wellbutrin XL) Take 1 Tab by mouth daily. 90 Tab 1 Nitroglycerin 0.4 MG Sublingual Tablet Sublingual (Nitrostat) Maximum 3 doses.One pill under tongueevery 5 minutes as needed for chest pain, maximum 3 doses (Patient not taking: Reported on 04/06/2022) 25 Tab 3 Rosuvastatin Calcium 20 MG Oral Tablet (Crestor) TAKE 1 TABLET BY MOUTH ONCE DAILY 90 Tab 0 Doxazosin Mesylate 1 MG Oral Tablet (Cardura) TAKE 1 TABLET BY MOUTH EVERY EVENING 90 Tab 0 Furosemide 40 MG Oral Tablet (Lasix) TAKE 1 TABLET BY MOUTH DAILY. 90 Tab 0 Advair Diskus 250-50 MCG/DOSE Inhalation Aerosol Powder Breath Activated Inhale 1 Puff by mouth in the morning. Dofetilide 125 MCG Oral Capsule (Tikosyn) TAKE 1 CAPSULE TWICE DAILY. 180 Capsule 3 Atenolol 50 MG Oral Tablet (Tenormin) Take 1 Tablet by mouth in the morning. 90 Tablet 3 Warfarin Sodium 5 MG Oral Tablet (Coumadin) TAKE 1 TABLET BY MOUTH IN THE MORNING OR DIRECTED BYANTI COAG CLINIC 90 Tablet 2 Current Facility-Administered Medications Medication Dose Route Frequency Provider Last Rate Last Admin albuterol (PROVENTIL HFA) inhaler 4 Puff 4 Puff Inhalation Q4H PRN Kennedi Haji MD 4 Puff at 03/14/18 1617 OBJECTIVE/PHYSICAL EXAMINATION: BP 128/66 (BP Site: Left Arm, BP Position: Sitting, BP Cuff Size: Large) | Pulse 72 | Resp 16 | Wt 133.1 kg (293 lb 8 oz) | SpO2 95% | BMI 43.34 kg/m | BSA 2.55 m Wt Readings from Last 3 Encounters: 12/07/22 133.1 kg (293 lb 8 oz) 04/06/22 (!) 136.6 kg (301 lb 1.6 oz) 03/18/21 (!) 153.5 kg (338 lb 8 oz) General: no acute distress and stated age Eyes: conjunctiva are pink and non-injected, sclera clear Neck: normal jugular venous pulse, no hepatojugular reflux Chest: normal shape and normal respiratory effort Lungs: clear to auscultation and percussion Cardiac Exam: - regular heart sounds, no murmurs, rubs, or gallops Abdomen: abdomen soft, non-tender, no abnormal masses and no hepatosplenomegaly Musculoskeletal: no gait disturbance, no weakness Extremities: 1-2+ lower extremity edema. Neuro: grossly normal exam Psych: appropriate affect and insight. Data: EKG performed today and reviewed personally: Sinus rhythm with frequent Premature ventricular complexes Low voltage QRS, consider pulmonary disease, pericardial effusion, or normal variant Cannot rule out Anterior infarct , age undetermined Abnormal ECG When compared with ECG of 06-APR-2022 10:49, Premature ventricular complexes are now Present QT/QTc: 380/457 ms EKG performed Mar 2022 Normal sinus rhythm Low voltage QRS, consider pulmonary disease, pericardial effusion, or normal variant Borderline ECG When compared with ECG of 15-SEP-2020 13:36, No significant change was found QT/QTC 442/444 milliseconds EKG performed September 2020: reveals sinus bradycardia at 54 beats per minute, normal axis and intervals, the corrected QT interval is normal at 430 milliseconds. Echo report reviewed from May 2018: Interpretation Summary The rhythm during the transthoracic echo examination was atrial fibrillation with controlled ventricular response. The examination is limited quality but adequate for evaluation of the referral indication. The qualitative LV ejection fraction is 55-59% (normal). The left ventricular wall motion is normal by limited analysis. All left ventricular segments are not visualized. The right ventricle is poorly visualized, however, appears borderline dilated in limited views. The right ventricular systolic function is qualitatively normal. The left atrium is mildly enlarged. No significant valvular disease is present. ASSESSMENT: 72 year old male PAF (paroxysmal atrial fibrillation) ([facility]) (Primary) -Continue rhythm control strategy with atenolol and dofetilide. Avoid QT prolonging agents given potential for interaction with dofetilide such as macrolide and quinolone antibiotics, thiazide diuretics. Continue Coumadin for stroke prophylaxis -compliance with meds questionable. Increased palpitations/PVC's. -will call pharmacy and review meds. -nurse visit for med reconciliation with bottles to be arranged this week -ZIO monitor to assess afib burden Coronary artery disease involving [place] croix coronary artery of [place] croix heart without angina pectoris -patient describes no recent symptoms to suggest recurrent angina. Continue aspirin, atenolol, rosuvastatin. -med reconciliation needs done Essential hypertension with goal blood pressure less than 130/80 -for blood pressure well controlled on his current regimen. Dyslipidemia, goal LDL below 70 Continue rosuvastatin Venous insufficiency/edema -increased edema -? Not taking diuretic -may need vascular f/u as well. MAMI, currently not using CPAP Recommend nurse med review. Patient to bring all his current meds to nurse visit this week Will also call pharmacy to see what was recently refilled (Tikosyn was refilled in Sep, so hopeful he is taking) ZIO monitor ordered to evaluate palpitations/arrhythmias and afib burden. Fasting labs also recommended. Consider resuming furosemide to aid with edema if not taking Further recommendations pending review of med list He has not seen PCP in many years. He wishes to establish with [facility] PCP. Will assist as he needs additional care/assistance Patient Instructions Wear heart monitor for 2 weeks. Fasting blood work tomorrow. Nothing to eat after midnight. May have water or diet soda Nurse visit tomorrow to go over medication list. Bring medications with you Schedule a family practice doctor appt I spent a total of 40 minutes on the date of service in preparation, delivery, and documentation ofthe care provided to Isma Salcedo excluding any time spent in the performance of separately billed services. The patient agrees to the above plan and will call with additional questions or concerns. ER with all emergencies advised. Follow-up: Return in about 3 months (around 03/09/2023). | Check-out note: Print instructions Fasting blood work tomorrow morning See if you can move up MTM clinic appt? Nurse visit here same time to review medications - patient to bring them 3 months f/u with Cleve or Arti Needs new patient appt for [facility] Cindy Poon PA-C Department of Cardiology This chart was completed in part utilizing [employer] Speech Voice Recognition Software. Grammatical errors, random word insertions, prounoun errors, and incomplete sentences are an occasional consequence of this system due to software limitations, ambient noise, and hardware issues. Any formal questions or concerns about the content, text, or information contained within the body of this dictation should be directly addressed to the provider for clarification. . documented in this encounter Procedure Notes * Maximino Rodrigues MD - 12/07/2022 3:14 PM EDTAssociated Order(s): EKG REASON FOR STUDY: afib CONCLUSIONS: Sinus rhythm with frequent Premature ventricular complexes Low voltage QRS, consider pulmonary disease, pericardial effusion, or normal variant Cannot rule out Anterior infarct , age undetermined Abnormal ECG When compared with ECG of 06-APR-2022 10:49, Premature ventricular complexes are now Present Ventricular Rate: 87 Atrial Rate: 87 PA Interval: 180 QRS Duration: 86 QT/QTc: 380/457 ms P-R-T [place]: 54 : 71 : 55 degrees documented in this encounter Nursing Notes * Demetrice Frost CMA - 12/07/2022 2:54 PM EDT Examination Room: 1 Name: Isma Salcedo Date of : (1950). Reason for Visit: 7M f/u Interim Hospitalization(s): none Problems/Concerns: Episodes of afib a couple times/week. Feels palpitations/fluttering and lightheaded. Chest Pain/SOB: Occasional chest pressure. Denies unusual SOB. [facility] Discussed: Not applicable [facility] is a way you can talk to your provider online through e-mail. Would you like to sign up? I can activate it for you? ALREADY ACTIVE Patient was instructed to not get up on the exam table until directed and assisted by their provider; patient is to remain seated in the chair/ wheelchair/ exam table for fall prevention and safety reasons. Patient is aware to have assistance to step down off exam table with personnel. Patient voiced full comprehension of instructions. documented in this encounter Plan of Treatment Upcoming Encounters Date Type Specialty Care Team Description 12/08/2022 Cardiac Studies Cardiac Studies Arri sacha 12/08/2022 Anticoagulation Pharmacy [facility] [address] [place] [address] Persistent atrial fibrillation (HCC)*; Anticoagulation management encounter; custodial current use of anticoagulant therapy 12/14/2022 Office Visit Family Medicine Selina Moser CRNP [address] [facility] [address] 01/05/2023 Anticoagulation Pharmacy [facility] [address] [place] [address] 03/25/2023 Office Visit Cardiology Claudette Harper PA-C [address] [place] [address] [place] [address] Scheduled Orders Name Type Priority Associated Diagnoses Orde r Schedule COMPREHENSIVE METABOLIC PANEL Lab Routine PAF (paroxysmal atrial fibrillation) (HCC) Dyslipidemia, goal LDL below 70 Chronic diastolic heart failure (HCC) PVC (premature ventricular contraction) Expected: 12/08/2022, Expires: 12/08/2023 LIPID PANEL WITH DIRECT LDL IF TG IS HIGH Lab Routine PAF (paroxysmal atrial fibrillation) (HCC) Dyslipidemia, goal LDL below 70 Chronic diastolic heart failure (HCC) PVC (premature ventricular contraction) Expected: 12/07/2022, Expires: 12/08/2023 HEMOGLOBIN A1C Lab Routine PAF (paroxysmal atrial fibrillation) (HCC) Dyslipidemia, goal LDL below 70 Chronic diastolic heart failure (HCC) PVC (premature ventricular contraction) Expected: 12/08/2022, Expires: 12/08/2023 BNP, NT-PRO Lab Routine PAF (paroxysmal atrial fibrillation) (HCC) Dyslipidemia, goal LDL below 70 Chronic diastolic heart failure (HCC) PVC (premature ventricular contraction) Expected: 12/08/2022, Expires: 12/08/2023 MAGNESIUM Lab Routine PAF (paroxysmal atrial fibrillation) (HCC) Dyslipidemia, goal LDL below 70 Chronic diastolic heart failure (HCC) PVC (premature ventricular contraction) Expected: 12/08/2022, Expires: 12/08/2023 CBC Lab Routine PAF (paroxysmal atrial fibrillation) (HCC) Dyslipidemia, goal LDL below 70 Chronic diastolic heart failure (HCC) PVC (premature ventricular contraction) Expected: 12/07/2022, Expires: 12/08/2023 EXTERNAL EKG 8 TO 15 DAYS Holter Routine PAF (paroxysmal atrial fibrillation) (HCC) Dyslipidemia, goal LDL below 70 Chronic diastolic heart failure (HCC) PVC (premature ventricular contraction) Expected: 12/07/2022 (Approximate), Expires: 12/08/2023 Health Maintenance Due Date Last Done Comments [...] Procedure Name Priority Date/Time Associated Diagnosis Comments PA ECG ROUTINE ECG W/LEAST 12 LDS W/I&R Routine 12/07/2022 3:14 PM EDT PAF (paroxysmal atrial fibrillation) (HCC) documented in this encounter Results * EKG (12/07/2022 3:14 PM EDT) 12/07/2022 3:14 PM EDT Procedure Note Maximino Rodrigues MD - 12/07/2022 3:14 PM EDT REASON FOR STUDY: afib CONCLUSIONS: Sinus rhythm with frequent Premature ventricular complexes Low voltage QRS, consider pulmonary disease, pericardial effusion, ornormal variant Cannot rule out Anterior infarct , age undetermined Abnormal ECG When compared with ECG of 06-APR-2022 10:49, Premature ventricular complexes are now Present Ventricular Rate: 87 Atrial Rate: 87 PA Interval: 180 QRS Duration: 86 QT/QTc: 380/457 ms P-R-T [place]: 54 : 71 : 55 degrees Cindy Poon PA-C EKG [facility] documented in this encounter Visit Diagnoses Diagnosis PAF (paroxysmal atrial fibrillation) (HCC)- Primary Atrial fibrillation Dyslipidemia, goal LDL below 70 Other and unspecified hyperlipidemia Chronic diastolic heart failure (HCC) Chronic diastolic heart failure PVC (premature ventricular contraction) Other premature beats Edema, unspecified type Persistent atrial fibrillation (HCC)- Primary Atrial fibrillation Anticoagulation management encounter 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
--- OUTSIDE RECORDS SUMMARY | 2023-02-19 04:00 | External Medical Summary ---
Author Name Unknown Address Unknown Organization [id number]:LABORATORY [facility] [place] - [address] [place] [address] Laboratory Report Ordering Provider Test Date Status YOANNA VARGAS 01/06/2023 10:42:16 Final Observation Date Value Abnormality Reference (Units ) Status Folic Acid 01/06/2023 10:42:16 19.4 >4.5 (ng/ mL) Final Performing Location LAB[facility]ATORY [facility] - [address] [place] [address]
--- OUTSIDE RECORDS SUMMARY | 2023-02-19 04:00 | External Medical Summary | Summary of Care ---
Author Name Unknown Organization [facility] Address [address] [facility] [place] [address] Phone [phone] Care Team Providers Care Software Test Specialist Name Role Phone Julieth Hargrove PA-C Primary Care Provide r Encounter Details Date Type Department Care Team Description 12/14/2022 Telephone Cardiology, [facility] [place] [address] [place] [id number] Cindy Poon PA-C [address] [place] [address] Allergies No known active allergiesdocumented as of this encounter (statuses as of 12/15/2022) Medications Medication Sig Dispensed Refills Start Date [...] Nasal SolutionIndications :Other chronic sinusitis Administer 1 Curtis into nostril in the morning and 1 Curtis before bedtime. 30 mL 12 07/13/2016 Active [...] Oral Tablet (Cardura)Indication s:Coronary artery disease involving [place] coronary artery of [place] heart without angina pectoris TAKE 1 TABLET [...] (paroxysmal atrial fibrillation) (HCC),Coronary artery disease involving [place] coronary artery of [place] heart without angina pectoris Take 1 Tablet [...] as of this encounter (statuses as of 12/15/2022) Active Problems Problem Noted Date PVC (premature [...] disorder 01/22/2014 Coronary artery disease invo lving [place] coronary artery of [place] heart without angina pectoris 02/24/2012 Dyslipidemia, goal LDL below 70 02/19/20 Overview: Per Lipid Taxonomy. Gastroesophageal reflux disease without esophagitis 01/14/2009 Chronic rhinitis 01/14/2009 Type 2 diabetes mellitus with hemoglobin A1c goal of less than 7.0% 01/02/2009 Overview: Per Diabetes Taxonomy. ICD-10 update of inactive term OLD MYOCARDIAL INFARCT 09/26/2008 Overview: Modified by Acute PA Protocol #5. 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 MAMI (obstructive sleep apnea) 03/07/1994 Overview: 10/2012 -- auto CPAP 16 cwp 06/26/12 -- changed from [employer] to T&B 08/06/11 -- CPAP auto 13-16 cwp 2007 - REMstar Plus CPAP 15 cwp T&B Medical ACEI/ARB contraindicated documented as of this encounter (statuses as of 12/15/2022) Resolved Problems Problem Noted Date Resolved Date [...] as of this encounter (statuses as of 12/15/2022) Immunizations Name Administration Dates Next Due Hepatitis [...] encounter Miscellaneous Notes * Telephone Encounter - Demetrice Frost CMA - 12/15/2022 12:08 PM EDT Patient no-showed family medicine appointment yesterday. Unable to reach by phone. * Telephone Encounter - DIO Parker - [...] Encounters Date Type Specialty Care Team Description 01/05/2023 Anticoagulation Pharmacy [facility] [place] [address] [facility] [place] [address] 03/25/2023 Office Visit Cardiology Claudette Harper PA-C [address] [place] [address] Health Maintenance Due Date [...] filedocumented as of this encounter Care Teams Software Test Specialist Relationship Specialty Start Date End Date Julieth Hargrove PA-C [address] [facility], [place] [address] PCP - General Physician Dredge Operator Supervisor 03/18/21 documented as of this encounter
--- OUTSIDE RECORDS SUMMARY | 2023-02-19 04:00 | External Medical Summary | Summary of Care ---
Author Name Unknown Organization [facility] Address [address] [facility] [place] [address] Phone [phone] Care Team Providers Care Enterprise Solutions Architect Name Role Phone Julieth Hargrove PA-C Primary Care Provide r Encounter Details Date Type Department Care Team Description 12/14/2022 Telephone Cardiology, [facility] [address] [place] [phone] Cindy Poon PA-C [address] [place] [address] Allergies No known active allergiesdocumented as of [...] Nasal SolutionIndications :Other chronic sinusitis Administer 1 [place] into nostril in the morning and 1 [place] before bedtime. 30 mL 12 07/13/2016 Active [...] Oral Tablet (Cardura)Indication s:Coronary artery disease involving [place] coronary artery of [place] heart without angina pectoris TAKE 1 TABLET [...] (paroxysmal atrial fibrillation) (HCC),Coronary artery disease involving [place] coronary artery of [place] heart without angina pectoris Take 1 Tablet [...] disorder 01/22/2014 Coronary artery disease invo lving [place] coronary artery of [place] heart without angina pectoris 02/24/2012 Dyslipidemia, goal LDL below 70 02/19/20 Overview: Per Lipid Taxonomy. Gastroesophageal reflux disease without esophagitis 01/14/2009 Chronic rhinitis 01/14/2009 Type 2 diabetes mellitus with hemoglobin A1c goal of less than 7.0% 01/02/2009 Overview: Per Diabetes Taxonomy. ICD-10 update of inactive term OLD MYOCARDIAL INFARCT 09/26/2008 Overview: Modified by Acute [place] Protocol #5. 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 MAMI (obstructive [...] encounter Miscellaneous Notes * Telephone Encounter - Cindy Poon PA-C - 12/15/2022 4:30 PM EDT Continue to attempt to reach patient and arrange nurse visit or do med reconciliation over phone. Reschedule visit with family practice. * Telephone Encounter - Demetrice Frost CMA [...] Specialty Care Team Description 01/05/2023 Anticoagulation Pharmacy [facility] [place] [address] [facility] [place] [address] 03/25/2023 Office Visit Cardiology Claudette Harper PA-C [address] [place] [address] [place] [address] Health Maintenance Due Date [...] filedocumented as of this encounter Care Teams Enterprise Solutions Architect Relationship Specialty Start Date End Date Julieth Hargrove PA-C [address] [place] [address], [place] [address] PCP - General Physician Board Handler 03/18/21 documented as of this encounter
--- OUTSIDE RECORDS SUMMARY | 2023-02-19 04:00 | External Medical Summary | Summary of Care ---
Author Name Unknown Organization [facility] Address [address] [facility] [place] [address] Phone [phone] Care Team Providers Care Airplane Woodworker Name Role Phone Julieth Hargrove PA-C Primary Care Provide r Reason for Visit * Reason Onset Date Comments FYI 11/29/2022 Encounter Details Date Type Department Care Team Description 11/29/2022 Telephone Pharmacy Call Center [address] [facility] [place] [address] [place] [facility] [place] [address] [facility] [place] [address] FYI Allergies No [...] Nasal SolutionIndicatio ns:Other chronic sinusitis Administer 1 [place] into nostril in the morning and 1 [place] before bedtime. 30 mL 12 07/13/2016 Active Coenzyme Q10 (COQ10) 400 MG CAPS Take by mouth. 0 Active Albuterol Sulfate HFA 108 (90 Base) MCG/ACT Inhalation Aerosol SolutionIndicatio ns:COPD, severity to be determined ([facility]) Inhale 3 Puffs by mouth every 4 hours as needed for Wheezing. 54 g 3 12/03/2019 Active Spacer/Aero-Holdi ng Chambers DeviceIndications :COPD exacerbation ([facility]) Use with inhaler. 1 Each 0 12/03/2019 Active metFORMIN HCl ER 500 MG Oral Tablet Extended Release 24 Hour (GLUCOPHAGE XR)Indications:Ty pe 2 diabetes mellitus with hemoglobin A1c goal of less than 7.0% ([facility]) Take 2 Tabs by mouth [...] Oral Tablet (Cardura)Indicati ons:Coronary artery disease involving [place] coronary artery of [place] heart without angina pectoris TAKE 1 TABLET BY MOUTH EVERY EVENING 90 Tab 0 08/21/2020 Active Furosemide 40 MG Oral Tablet (Lasix)Indication s:Chronic diastolic heart failure ([facility]) TAKE 1 TABLET BY MOUTH DAILY. 90 Tab 0 08/21/2020 Active Advair Diskus 250-50 MCG/DOSE Inhalation Aerosol Powder Breath Activated Inhale 1 Puff by mouth in the morning. 0 02/16/2021 Active Dofetilide 125 MCG Oral Capsule (Tikosyn)Indicati ons:PAF (paroxysmal atrial fibrillation) ([facility]) TAKE 1 CAPSULE TWICE DAILY. 180 Capsule 3 12/17/2021 Active Atenolol 50 MG Oral Tablet (Tenormin)Indicat ions:PAF (paroxysmal atrial fibrillation) ([facility]),Coronary artery disease involving [place] coronary artery of [place] heart without angina pectoris Take 1 Tablet [...] disorder 01/22/2014 Coronary artery disease invo lving [place] coronary artery of [place] heart without angina pectoris 02/24/2012 Dyslipidemia, goal [...] accepted: Orders * Telephone Encounter - Suzanne Vazquez RP - 11/29/2022 10:26 AM EDT Noted, will refill and patient to resume warfarin. Patient Phone Numbers Spoke to patient via phone. Sent in refill of warfarin and patient will resume immediately. Suzanne Vazquez Pharm D, BCACP Clinical Pharmacist 11/29/2022, 10:27 AM * Telephone Encounter - CRYS Cross - 11/29/2022 10:16 AM EDT Caller's name: isma Dowling call back number(OFFICE NUMBER FOR ): [phone] Reason for call: pt calling in to r/s ofs and mentioned he has not taken his warfarin for a month or so. I did put in for a refill. Thank you, Kim Jeter Broke Worker [facility] ([facility] (Formerly [facility]) 11/29/2022,10:16 AM documented in this encounter Plan of Treatment Upcoming Encounters Date Type Specialty Care Team Description 12/07/2022 Office Visit Cardiology Cindy Poon PA-C [address] [place] [address] 12/08/2022 Anticoagulation Pharmacy [facility] [place] [address] [place] [address] Health Maintenance Due Date Last Done Comments [...] fibrillation documented in this encounter Care Teams Airplane Woodworker Relationship Specialty Start Date End Date Julieth Hargrove PA-C [address] [place] [address], [place] [address] PCP - General Physician Chimney Mechanic 03/18/21 documented as of this encounter
--- OUTSIDE RECORDS SUMMARY | 2023-02-19 04:00 | External Medical Summary | Summary of Care ---
Author Name Unknown Organization [facility] Address [address] [facility] [place] [address] Phone [phone] Care Team Providers Care Correctional Sergeant Name Role Phone Julieth Hargrove PA-C Primary Care Provide r Reason for Visit * Reason Onset Date Comments Follow Up 11/19/2022 Encounter Details Date Type Department Care Team Description 11/19/2022 Telephone Cardiology, [facility] [address] [place] [address] [place], [address] [place] [address] Follow Up Allergies No known active allergiesdocumented as of this encounter (statuses as of 11/25/2022) Medications Medication Sig Dispensed Refills Start Date [...] Nasal SolutionIndications :Other chronic sinusitis Administer 1 [place] into nostril in the morning and 1 [place] before bedtime. 30 mL 12 07/13/2016 Active Coenzyme Q10 (COQ10) 400 MG CAPS Take by mouth. 0 A ctive Albuterol Sulfate HFA 108 (90 Base) MCG/ACT Inhalation Aerosol SolutionIndications :COPD, severity to be determined ([facility]) Inhale 3 Puffs by mouth every 4 hours as needed for Wheezing. 54 g 3 12/03/2019 Active Spacer/Aero-Holding Chambers DeviceIndications:C OPD exacerbation ([facility]) Use with inhaler. 1 Each 0 12/03/2019 Active metFORMIN HCl ER 500 MG Oral Tablet Extended Release 24 Hour (GLUCOPHAGE XR)Indications:Type 2 diabetes mellitus with hemoglobin A1c goal of less than 7.0% ([facility]) Take 2 Tabs by mouth [...] Oral Tablet (Cardura)Indication s:Coronary artery disease involving [place] coronary artery of [place] heart without angina pectoris TAKE 1 TABLET BY MOUTH EVERY EVENING 90 Tab 0 08/21/2020 Active Furosemide 40 MG Oral Tablet (Lasix)Indications: Chronic diastolic heart failure ([facility]) TAKE 1 TABLET BY MOUTH DAILY. 90 Tab 0 08/21/2020 Active Advair Diskus 250-50 MCG/DOSE Inhalation Aerosol Powder Breath Activated Inhale 1 Puff by mouth in the morning. 0 02/16/2021 Active Dofetilide 125 MCG Oral Capsule (Tikosyn)Indication s:PAF (paroxysmal atrial fibrillation) ([facility]) TAKE 1 CAPSULE TWICE DAILY. 180 Capsule 3 12/17/2021 Active Atenolol 50 MG Oral Tablet (Tenormin)Indicatio ns:PAF (paroxysmal atrial fibrillation) ([facility]),Coronary artery disease involving [place] coronary artery of [place] heart without angina pectoris Take 1 Tablet [...] as of this encounter (statuses as of 11/25/2022) Active Problems Problem Noted Date Persistent atrial [...] disorder 01/22/2014 Coronary artery disease invo lving [place] coronary artery of [place] heart without angina pectoris 02/24/2012 Dyslipidemia, goal [...] as of this encounter (statuses as of 11/25/2022) Resolved Problems Problem Noted Date Resolved Date [...] as of this encounter (statuses as of 11/25/2022) Immunizations Name Administration Dates Next Due Hepatitis [...] encounter Miscellaneous Notes * Telephone Encounter - MAMI Lofton - 11/22/2022 8:42 AM EDT Spoke with pt. Pt is scheduled 12/07/22 with Cindy. * Telephone Encounter - Ta Chi DO - 11/19/2022 4:51 PM EDT I called patient and reached [...] is agreeable to following up with the [facility]. He should not be discharged from the [facility] clinic with regards to his Coumadin. I will place another referral. --Pt agreeable to appointment with AP if I do not have availability. He has seen Marimar Poon before. Ta Chi DO documented in this encounter Plan of Treatment Upcoming Encounters Date Type Specialty Care Team Description 12/02/2022 Anticoagulation Pharmacy [facility] [place] [address] [place] [address] 12/07/2022 Office Visit Cindy Oden PA-C [address] [place] [address] Health Maintenance Due Date Last Done Comments [...] Completed 07/16/2016, 09/13/2012 Hepatitis B Completed 10/14/2016, 03/0 11/2016, 04/15/2016 Pneumococcal Vaccine: 65+ Years Completed [...] filedocumented as of this encounter Care Teams Correctional Sergeant Relationship Specialty Start Date End Date Julieth Hargrove PA-C [address] [place] [address], [place] [address] PCP - General Physician Construction Administrative Assistant 03/18/21 documented as of this encounter
--- OUTSIDE RECORDS SUMMARY | 2023-02-19 04:00 | External Medical Summary ---
Author Name Unknown Address Unknown Organization [id number]:[place] [facility] [place] [address] [place] [address] Laboratory Report Ordering Provider Test Date Status YOANNA VARGAS 01/06/2023 10:42:16 Final Observation Date Value Abnormality Reference (Units ) Status Vitamin B12 01/06/2023 10:42:16 [id number] (pg/mL) Final Performing Location LABORATORY [facility] - [address] [place] [address]
--- OUTSIDE RECORDS SUMMARY | 2023-02-19 04:00 | External Medical Summary | Summary of Care ---
Author Name Unknown Organization [facility] Address [address] [facility] [place] [address] Phone [phone] Care Team Providers Care Site Engineer Name Role Phone Julieth Hargrove PA-C Primary Care Provide r Reason for Visit * Reason Comments Dosage Adjustment In Person (Anticoag Cl inic) * Evaluate & Treat - Unlimited Visits (Within 3 days (urgent)) - Pending Review Specialty Diagnoses / Procedures Referred By Delaney healy Referred To Contact ANTI-COAG CLINIC / Pharmacy Diagnoses Persistent atrial fibrillation (HCC) Ta Chi DO [address] [place] [address] Referral ID Status Reason Start Date Expiration Date Visits Requested Visits Authorized [id number] Pending Review Specialty Services Required 11/19/2022 05/18/2023 99 99 Encounter Details Date Type Department Care Team Description 12/08/2022 Anticoagulation Pharmacy, [facility] [address] [place] [address] [facility] [address] [place] [address] Persistent atrial fibrillation (HCC)*; Anticoagulation management encounter; oil heaterman current use of anticoagulant therapy Allergies No known active allergiesdocumented as of [...] Nasal SolutionIndications :Other chronic sinusitis Administer 1 [place] into nostril in the morning and 1 [place] before bedtime. 30 mL 12 07/13/2016 Active [...] Oral Tablet (Cardura)Indication s:Coronary artery disease involving [place] coronary artery of [place] heart without angina pectoris TAKE 1 TABLET [...] (paroxysmal atrial fibrillation) (HCC),Coronary artery disease involving [place] coronary artery of [place] heart without angina pectoris Take 1 Tablet [...] 01/22/2014 Coronary artery disease invo lving [place] coronary artery of [place] heart without angina pectoris 02/24/2012 Dyslipidemia, goal LDL below 70 02/19/20 09 Overview: Per Lipid Taxonomy. Gastroesophageal reflux disease without esophagitis 01/14/2009 Chronic rhinitis 01/14/2009 Type 2 diabetes mellitus with hemoglobin A1c goal of less than 7.0% 01/02/2009 Overview: Per Diabetes Taxonomy. ICD-10 update of inactive term OLD MYOCARDIAL INFARCT 09/26/2008 Overview: Modified by Acute [place] Protocol #5. 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 MAMI (obstructive [...] of this encounter Progress Notes * Suzanne Vazquez, [facility] - 12/08/2022 2:14 PM EDT Medication Therapy Disease Management - Anticoagulation Patient: Isma Salcedo | : 1950 Subjective Patient-Reported Symptoms: Patient Findings Positives: Missed doses (patient has only been taking3 times per week) Negatives: Signs/symptoms of thrombosis, Signs/symptoms of bleeding, Change in health, Change in alcohol use, Change in activity, Upcoming invasive procedure, Extra doses, Change in medications, Change in diet/appetite, Bruising Objective Current Warfarin Dose As of 12/08/2022 Warfarin maintenance plan: 10 mg (5 mg x 2) every Tue, Nguyen, Sat; 5 mg (5 mg x 1) all other days INR Result As of 12/08/2022 INR goal: 2.0-3.0 INR used for dosin.3 (12/08/2022) Assessment & Plan Warfarin Plan As of 12/08/2022 Full warfarin instructions: 10 mg every Tue, Nguyen, Sat; 5 mg all other days Next INR check: 01/05/2023 Repeat PT/INR in 4 week(s) Weekly dose: resume previous dose prior to non compliance Additional Dosing Information: Suzanne Vazquez RPh Clinical Pharmacist 12/08/2022, 2:15 PM documented in this encounter Plan of Treatment Upcoming Encounters Date Type Specialty Care Team Description 12/14/2022 Office Visit Family Medicine Selina Moser CRNP [address] [place] [address] 01/05/2023 Anticoagulation Pharmacy [facility] [address] [place] [address] 03/25/2023 Office Visit Cardiology Claudette Harper PA-C [address] [place] [address] [place] [address] Health Maintenance Due Date Last Done Comments [...] Procedure Name Priority Date/Time Associated Diagnosis Comments INR FINGERSTICK, POINT OF CARE STAT 12/08/2022 1:00 PM EDT Anticoagulation management encounter [facility] current use of anticoagulant therapy documented in this encounter Results * INR FINGERSTICK, POINT OF CARE (12/08/2022 1:00 PM EDT) Fingerstick INR 1.3 INR 1:04 PM EDT [facility] [place] [facility] Blood 12/08/2022 1:00 PM EDT 12/08/2022 1:04 PM EDT Narrative [facility] [place] [facility] - 12/08/2022 1:04 PM EDT Therapeutic ranges for non-operative patients: Prophylaxsis/treatment of DVT: (Range:2.0-3.0) Treatment of pulmonary embolism:(Range:2.0-3.0) Prevention of systemic embolism from: -tissue heart valves -acute myocardial infarction -valvular heart disease -atrial fibrillation (Range: 2.0-3.0) Mechanical prosthetic valves: (Range: 2.5-3.5) Juanpablo Nichols [facility] LAB POINT OF CAR E TEST DOCKED DEVICE UNSOLICITED RESULTS [facility] [place] [facility] [facility] [address] documented in this encounter Visit Diagnoses Diagnosis Persistent atrial fibrillation (HCC)- Primary Atrial fibrillation Anticoagulation management encounter Encounter for therapeutic drug monitoring oil heaterman current use of anticoagulant therapy documented in this encounter Care Teams Site Engineer Relationship Specialty Start Date End Date Julieth Hargrove PA-C [address] [facility], [place] [address] PCP - General Physician Flood Control Engineer 03/18/21 documented as of this encounter"
--- OUTSIDE RECORDS SUMMARY | 2023-02-19 04:01 | External Medical Summary ---
Author Name Unknown Address Unknown Organization [id number]:LABORATORY [facility] [place] [address] - [address] [place] [address] Laboratory Report Ordering Provider Test Date Status MATTHIAS MORALESS 10/27/2022 11:29:19 Final Therapeutic ranges for non-o perative patients:
Prophylaxsis/treatment of DVT: (Range:2.0-3.0)
Treatment of pulmonary embolism:(Range:2.0-3.0)
Prevention of systemic embolism from:
-tissue heart valves
-acute myocardial infarction
-valvular heart disease
-atrial fibrillation
(Range: 2.0-3.0)
Mechanical prosthetic valves: (Range: 2.5-3.5) Observation Date Value Abnormality Reference (Units ) Status INR in Capillary blood by Coagulation assay 10/27/2022 11:29:19 1.8 (INR) Final Performing Location LAB[facility]ATORY [facility] [place] [address] 0 - [address] [place] [address]
--- OUTSIDE RECORDS SUMMARY | 2023-02-19 04:01 | External Medical Summary | Summary of Care ---
Author Name Unknown Organization [facility] Address [address] [facility] [place] [address] Phone [phone] Care Team Providers Care Safety And Security Manager Name Role Phone Julieth Hargrove PA-C Primary Care Provide r Reason for Visit * Reason Comments Dosage Adjustment In Person (Anticoag Cl inic) Encounter Details Date Type Department Care Team Description 09/14/2022 Anticoagulation Pharmacy, [facility] [address] [facility] [place] [address] [facility] [address] Atrial fibrillation, unspecified type (HCC)*; Anticoagulation management encounter; jail current use of anticoagulant therapy Allergies No known active allergiesdocumented as of this encounter (statuses as of 09/14/2022) Medications Medication Sig Dispensed Refills Start Date [...] Nasal SolutionIndications :Other chronic sinusitis Administer 1 [place] into nostril in the morning and 1 [place] before bedtime. 30 mL 12 07/13/2016 Active Coenzyme Q10 (COQ10) 400 MG CAPS Take by mouth. 0 A ctive Albuterol Sulfate HFA 108 (90 Base) MCG/ACT Inhalation Aerosol SolutionIndications :COPD, severity to be determined ([facility]) Inhale 3 Puffs by mouth every 4 hours as needed for Wheezing. 54 g 3 12/03/2019 Active Spacer/Aero-Holding Chambers DeviceIndications:C OPD exacerbation ([facility]) Use with inhaler. 1 Each 0 12/03/2019 Active metFORMIN HCl ER 500 MG Oral Tablet Extended Release 24 Hour (GLUCOPHAGE XR)Indications:Type 2 diabetes mellitus with hemoglobin A1c goal of less than 7.0% ([facility]) Take 2 Tabs by mouth daily. 180 [...] Oral Tablet (Cardura)Indication s:Coronary artery disease involving [place] coronary artery of [place] heart without angina pectoris TAKE 1 TABLET [...] Oral Capsule (Tikosyn)Indication s:PAF (paroxysmal atrial fibrillation) ([facility]) TAKE 1 CAPSULE TWICE DAILY. 180 Capsule 3 12/17/2021 Active Atenolol 50 MG Oral Tablet (Tenormin)Indicatio ns:PAF (paroxysmal atrial fibrillation) ([facility]),Coronary artery disease involving [place] coronary artery of [place] heart without angina pectoris Take 1 Tablet [...] as of this encounter (statuses as of 09/14/2022) Active Problems Problem Noted Date Peripheral venous insufficiency 03/18/19 22 Body mass [...] disorder 01/22/2014 Coronary artery disease invo lving [place] coronary artery of [place] heart without angina pectoris 02/24/2012 Dyslipidemia, goal LDL below 70 02/19/20 09 Overview: Per Lipid Taxonomy. Gastroesophageal reflux disease without esophagitis 01/14/2009 Chronic rhinitis 01/14/2009 Type 2 diabetes mellitus with hemoglobin A1c goal of less than 7.0% 01/02/2009 Overview: Per Diabetes Taxonomy. ICD-10 update of inactive term OLD MYOCARDIAL INFARCT 09/26/2008 Overview: Modified by Acute [place] Protocol #5. 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 MAMI (obstructive sleep apnea) 03/07/1994 Overview: 10/2012 -- auto CPAP 16 cwp 06/26/12 -- changed from [employer] to T&B 08/06/11 -- CPAP auto 13-16 cwp 2007 - REMstar Plus CPAP 15 cwp T&B Medical ACEI/ARB contraindicated documented as of this encounter (statuses as of 09/14/2022) Resolved Problems Problem Noted Date Resolved Date [...] as of this encounter (statuses as of 09/14/2022) Immunizations Name Administration Dates Next Due Hepatitis B, 20+ yrs 10/14/2016,05/13/2016,04/15 PPD 01/06/2009 Pneumococcal Conjugate Vacc, 13 Valent (Prevnar) 07/28/2015 Pneumococcal Polysaccharide PPV23 (Pneumovax) 11/15/2016,11/08/2011,03/07/2005 Seasonal Influenza, Quadriva lent Hd (Fluzone Hd) 11/22/2020 Seasonal Influenza, Quadriva lent, No Preserve, Adjuvanted, 65+ Yrs, IM 11/19/2019 Seasonal Influenza, Quadriva lent, No Preserve, IM [...] this encounter Progress Notes * Suzanne Vazquez, [facility] - 09/14/2022 11:00 AM EDT Images from the original note were not included. Medication Therapy Disease Management - Anticoagulation Patient: Isma Salcedo : 1950 Current Warfarin Dose As of 09/14/2022 Warfarin maintenance plan: 10 mg (5 mg x 2) every Tue, Nguyen, Sat; 5 mg (5 mg x 1) all other days Patient-Reported Symptoms: Patient Findings Negatives: Signs/symptoms of thrombosis, Signs/symptoms of bleeding, Change in health, Change in alcohol use, Change in activity, Upcoming invasive procedure, Missed doses, Extra doses, Change in medications, Change in diet/appetite, Bruising INR Result As of 09/14/2022 INR goal: 2.0-3.0 INR used for dosin.6 (09/14/2022) Warfarin Plan As of 09/14/2022 Full warfarin instructions: 09/15: 10 mg; Otherwise 10 mg every Tue, Nguyen, Sat; 5 mg all other days Next INR check: 10/27/2022 Additional Dosing Information: Description Takes in AM Repeat PT/INR in 6 week(s) Weekly dose: not changed Juanpablo Whalen PharmD Clinical Pharmacist Medication Therapy Management [facility] 09/14/2022 11:35 AM Suzanne Vazquez [facility] Clinical Pharmacist 09/14/2022, 11:35 AM documented in this encounter Plan of Treatment Upcoming Encounters Date Type Specialty Care Team Description 10/22/2022 Office Visit Cardiology Ta Chi DO [address] [place] [address] 10/27/2022 Anticoagulation Pharmacy [facility] [address] [place] [address] Health Maintenance Due Date Last Done Comments Alpha-1 Antitrypsin 11/08/1967 O2 ASSESSMENT COMPLETED IN PAST YEAR FOR COPD 11/08/1967 Cologuard 1994 Sigmoidoscopy 1994 Fecal Occult Blood Test 07/21/2017 07/21/2016 *ADVANCE DIRECTIVE NOT ON FILE 10/22/2018 DIABETES-EYE EXAM 07/11/2019 07/10/2018, , 06/10/2016, Additional history exists COVID-19 Vaccine (3 - Pfizer series) 07/15/2020 05/20/2020, 04/29/2020 Albumin/Creatinine Ratio 08/26/2020 020, 07/27/2018, 07/05/2017, Additional history exists DIABETES-FOOT EXAM 11/18/2020 11/19/2019, 1 , 03/28/2018, Additional history exists Depression Screening, Annual for Pts 12 and Over 11/18/2020 11/19/2019 B-12 01/22/2021 01/23/2020, 07/05, 10/08/2008 HbA1c 10/04/2022 04/06/2022, 01/05, 08/27/2019, Additional history exists Influenza Vaccine (FLU shot) (#1) 2022 11/22/2020, 11/19/2019, 12/07/2018, Additional history exists GFR 04/06/2023 04/06/2022, 01/05, 08/27/2019, Additional history exists DTaP,Tdap,and Td Vaccines (2 - Td or Tdap) 03/12/2024 03/12/2014, 03/07/2004 Colonoscopy 10/01/2031 09/30/2021, 04/07, 04/22/2016, Additional history exists Colorectal Cancer Screening 10/01/2031 Hepatitis B Completed 10/14/2016, 0311/2016, 04/15/2016 Pneumococcal [...] Comments INR FINGERSTICK, POINT OF CARE STAT 09/14/2022 11:06 AM EDT Anticoagulation management encounter jail current use of anticoagulant therapy documented in this encounter Results * INR FINGERSTICK, POINT OF CARE (09/14/2022 11:06 AM EDT) Fingerstick INR 1.6 INR 11:28 AM EDT [facility] 57-10 Blood 09/14/2022 11:0 6 AM EDT 09/14/2022 11:28 AM EDT Narrative [facility] [place] [facility]10 - 09/14/2022 11:28 AM EDT Therapeutic ranges for non-operative patients: Prophylaxsis/treatment of DVT: (Range:2.0-3.0) Treatment of pulmonary embolism:(Range:2.0-3.0) Prevention of systemic embolism from: -tissue heart valves -acute myocardial infarction -valvular heart disease -atrial fibrillation (Range: 2.0-3.0) Mechanical prosthetic valves: (Range: 2.5-3.5) Juanpablo Nichols [facility] LAB POINT OF CAR E TEST DOCKED DEVICE UNSOLICITED RESULTS [facility] [address] [place] [address] documented in this encounter Visit Diagnoses Diagnosis Atrial fibrillation, unspecified type (HCC)- Primary Anticoagulation management encounter Encounter for therapeutic drug monitoring terminal worker current use of anticoagulant therapy documented in this encounter Care Teams Safety And Security Manager Relationship Specialty Start Date End Date Julieth Hargrove PA-C [address] [place] [id number] PCP - General Physician Industrial Custodian 03/18/21 documented as of this encounter
--- OUTSIDE RECORDS SUMMARY | 2023-02-19 04:01 | External Medical Summary ---
Author Name Unknown Address Unknown Organization [id number]:[facility]AT[facility] [address] - [address] [place] [id number] Laboratory Report Ordering Provider Test Date Status NANDINI KARIMI 09/14/2022 11:06:14 Final Therapeutic ranges for non-o perative patients:
Prophylaxsis/treatment of DVT: (Range:2.0-3.0)
Treatment of pulmonary embolism:(Range:2.0-3.0)
Prevention of systemic embolism from:
-tissue heart valves
-acute myocardial infarction
-valvular heart disease
-atrial fibrillation
(Range: 2.0-3.0)
Mechanical prosthetic valves: (Range: 2.5-3.5) Observation Date Value Abnormality Reference (Units ) Status INR in Capillary blood by Coagulation assay 09/14/2022 11:06:14 1.6 (INR) Final Performing Location LAB[facility]ORY [facility] 57-[address] 0 - [address] [place] [id number]
--- OUTSIDE RECORDS SUMMARY | 2023-02-19 04:01 | External Medical Summary | Summary of Care ---
Author Name Unknown Organization [facility] Address [address] [facility] [address] Phone [phone] Care Team Providers Care Ship'S Master Name Role Phone Julieth Hargrove PA-C Primary Care Provide r Reason for Visit * Reason Comments Dosage Adjustment In Person (Anticoag Cl inic) Encounter Details Date Type Department Care Team Description 10/27/2022 [facility], [facility] [address] [facility] [phone] Persistent atrial fibrillation (HCC)* Allergies No known active allergiesdocumented as of this encounter (statuses as of 10/27/2022) Medications Medication Sig Dispensed Refills Start Date [...] Nasal SolutionIndications :Other chronic sinusitis Administer 1 [place] into nostril in the morning and 1 [place] before bedtime. 30 mL 12 07/13/2016 Active Coenzyme Q10 (COQ10) 400 MG CAPS Take by mouth. 0 A ctive Albuterol Sulfate HFA 108 (90 Base) MCG/ACT Inhalation Aerosol SolutionIndications :COPD, severity to be determined ([facility]) Inhale 3 Puffs by mouth every 4 hours as needed for Wheezing. 54 g 3 12/03/2019 Active Spacer/Aero-Holding Chambers DeviceIndications:C OPD exacerbation ([facility]) Use with inhaler. 1 Each 0 12/03/2019 Active metFORMIN HCl ER 500 MG Oral Tablet Extended Release 24 Hour (GLUCOPHAGE XR)Indications:Type 2 diabetes mellitus with hemoglobin A1c goal of less than 7.0% ([facility]) Take 2 Tabs by mouth daily. [...] Oral Tablet (Cardura)Indication s:Coronary artery disease involving [place] coronary artery of [place] heart without angina pectoris TAKE 1 TABLET BY MOUTH EVERY EVENING 90 Tab 0 08/21/2020 Active Furosemide 40 MG Oral Tablet (Lasix)Indications: Chronic diastolic heart failure ([facility]) TAKE 1 TABLET BY MOUTH DAILY. 90 Tab 0 08/21/2020 Active Advair Diskus 250-50 MCG/DOSE Inhalation Aerosol Powder Breath Activated Inhale 1 Puff by mouth in the morning. 0 02/16/2021 Active Dofetilide 125 MCG Oral Capsule (Tikosyn)Indication s:PAF (paroxysmal atrial fibrillation) ([facility]) TAKE 1 CAPSULE TWICE DAILY. 180 Capsule 3 12/17/2021 Active Atenolol 50 MG Oral Tablet (Tenormin)Indicatio ns:PAF (paroxysmal atrial fibrillation) ([facility]),Coronary artery disease involving [place] coronary artery of [place] heart without angina pectoris Take 1 Tablet [...] as of this encounter (statuses as of 10/27/2022) Active Problems Problem Noted Date Peripheral venous [...] disorder 01/22/2014 Coronary artery disease invo lving [place] coronary artery of [place] heart without angina pectoris 02/24/2012 Dyslipidemia, goal LDL below 70 02/19/20 09 Overview: Per Lipid Taxonomy. Gastroesophageal reflux disease without esophagitis 01/14/2009 Chronic rhinitis 01/14/2009 Type 2 diabetes mellitus with hemoglobin A1c goal of less than 7.0% 01/02/2009 Overview: Per Diabetes Taxonomy. ICD-10 update of inactive term OLD MYOCARDIAL INFARCT 09/26/2008 Overview: Modified by Acute [place] Protocol #5. 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 MAMI (obstructive sleep apnea) 03/07/1994 Overview: 10/2012 -- auto CPAP 16 cwp 06/26/12 -- changed from [employer] to T&B 08/06/11 -- CPAP auto 13-16 cwp 2007 - REMstar Plus CPAP 15 cwp T&B Medical ACEI/ARB contraindicated documented as of this encounter (statuses as of 10/27/2022) Resolved Problems Problem Noted Date Resolved Date [...] as of this encounter (statuses as of 10/27/2022) Immunizations Name Administration Dates Next Due Hepatitis [...] this encounter Progress Notes * Suzanne Vazquez, [facility] - 10/27/2022 11:41 AM EDT I agree with documented plan of care. Suzanne Vazquez, Pharm D, BCACP Clinical Pharmacist 10/27/2022, 11:41 AM documented in this encounter Plan of Treatment Upcoming Encounters Date Type Specialty Care Team Description 12/02/2022 [facility]ticoagulation [facility]acy [facility] [place] [place] [address] Health Maintenance Due Date Last Done Comments [...] Diagnosis Comments INR FINGERSTICK, POINT OF CARE LETICIA 10/27/2022 11:29 AM EDT documented in this encounter Results * INR FINGERSTICK, POINT OF CARE (10/27/2022 11:29 AM EDT) Fingerstick INR 1.8 INR 11:37 AM EDT [facility]-10 Blood 10/27/2022 11:2 9 AM EDT 10/27/2022 11:37 AM EDT Narrative [facility]-10 - 10/27/2022 11:37 AM EDT Therapeutic ranges for non-operative patients: Prophylaxsis/treatment of DVT: (Range:2.0-3.0) Treatment of pulmonary embolism:(Range:2.0-3.0) Prevention of systemic embolism from: -tissue heart valves -acute myocardial infarction -valvular heart disease -atrial fibrillation (Range: 2.0-3.0) Mechanical prosthetic valves: (Range: 2.5-3.5) [facility] LAB POINT OF CARE TEST DOCKED DEVICE UNSOLICITED RESULTS [facility] [place] [facility] [facility] [place] [address] documented in this encounter Visit Diagnoses Diagnosis Persistent atrial fibrillation (HCC)- Primary Atrial fibrillation documented in this encounter Care Teams Ship'S Master Relationship Specialty Start Date End Date Julieth Hargrove PA-C [address] [place] [address], [place] [address] PCP - General Physician Rn Review 03/18/21 documented as of this encounter
--- OUTSIDE RECORDS SUMMARY | 2023-02-19 04:01 | External Medical Summary | Summary of Care ---
Author Name Unknown Organization [facility] Address [address] [place] [address] Phone [phone] Care Team Providers Care Cash Register Operator Name Role Phone Julieth Hargrove PA-C Primary Care Provide r Encounter Details Date Type Department Care Team Description 10/26/2022 Orders Only Outcomes Research Department [address] [place] [address] Caitlyn Pride CHRA [employer] Other*[id number] Allergies No known active allergiesdocumented as of this encounter (statuses as of 10/26/2022) Medications Medication Sig Dispensed Refills Start Date [...] Nasal SolutionIndications :Other chronic sinusitis Administer 1 [place] into nostril in the morning and 1 [place] before bedtime. 30 mL 12 07/13/2016 Active [...] Oral Tablet (Cardura)Indication s:Coronary artery disease involving [place] coronary artery of [place] heart without angina pectoris TAKE 1 [...] (paroxysmal atrial fibrillation) (HCC),Coronary artery disease involving [place] coronary artery of [place] heart without angina pectoris Take 1 Tablet [...] as of this encounter (statuses as of 10/26/2022) Active Problems Problem Noted Date Peripheral venous insufficiency 03/18/19 22 Body mass index (BMI) of 45.0 to 49.9 in adult 12/17/2019 Overview: Per Obesity protocol - - COPD, group C, by GOLD 2017 classificati on 10/16/2018 Overview: Per COPD GOLD Classification Type 2 diabetes mellitus wit h diabetic nephropathy, without long-term current use of insulin 07/24/2018 Chronic diastolic heart failure 05/31/19 Asymmetrical sensorineural hearing loss 11/18/2017 PAF (paroxysmal atrial fibrillation) 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 Ventral hernia without obstruction or ga ngrene 09/02/2014 Mild single current episode of major dep ressive disorder 01/22/2014 Coronary artery disease invo lving [place] coronary artery of [place] heart without angina pectoris 02/24/2012 Dyslipidemia, [...] as of this encounter (statuses as of 10/26/2022) Resolved Problems Problem Noted Date Resolved Date [...] as of this encounter (statuses as of 10/26/2022) Immunizations Name Administration Dates Next Due Hepatitis [...] Encounters Date Type Specialty Care Team Description 10/27/2022 [facility] [place] [address] [facility] [place] [address] Scheduled Orders Name Type Priority Associated Diagnoses Orde r Schedule MYCODE SUBSEQUENT ADULT Lab Routine [employer] Research Other*[id number] Every 6 Months for 2 Occurrences starting 10/26/2022 until 11/15/2023 Health Maintenance Due Date Last Done Comments [...] Completed 07/16/2016, 09/13/2012 Hepatitis B Completed 10/14/2016, 030 11/2016, 04/15/2016 Pneumococcal Vaccine: 65+ Years Completed [...] as of this encounter Visit Diagnoses Diagnosis [employer] [facility] Other*[id number] documented in this encounter Care Teams Cash Register Operator Relationship Specialty Start Date End Date Julieth Hargrove PA-C [address] [facility] [place] [address] PCP - General Physician Digital Marketer 03/18/21 documented as of this encounter
[2023-02-19 04:42] LABS: Basophils # (auto) 0.08 K/uL (0.00-0.20); Basophils % (auto) 0.7 %; Eosinophils # (auto) 0.31 K/uL (0.00-0.50); Eosinophils % (auto) 2.8 %; Hematocrit (blood only) 46.4 % (42.0-52.0); Hemoglobin 15.8 g/dl (14.0-18.0); Immature Granulocytes # (auto) 0.13 K/uL (0.01-0.20); Immature Granulocytes % (auto) 1.2 %; Lymphocytes # (auto) 1.71 K/uL (1.20-3.40); Lymphocytes % (auto) 15.6 %; Mean Corpuscular Hemoglobin 30.4 pg (25.0-34.0); Mean Corpuscular Hgb Conc 34.1 g/dL (32.0-36.0); Mean Corpuscular Volume 89.2 fL (80.0-100.0); Mean Platelet Volume 10.1 fL (9.4-12.4); Monocytes # (auto) 1.06 K/uL (0.11-0.59); Monocytes % (auto) 9.7 %; Neutrophils # (auto) 7.66 K/uL (1.40-6.50); Platelet Count 290 K/uL (130-400); RDW Coefficient of Variation 13.1 % (11.5-14.5); RDW Standard Deviation 43.1 fL (36.4-46.3); White Blood Count 10.95 K/ul (4.8-10.8)
[2023-02-19 04:49] LABS: Albumin Globulin Ratio 1.2 (0.9-2); Albumin Level 3.4 gm/dl (3.4-5.0); BUN Creatinine Ratio 9.1 (10-20); Bilirubin,Total 0.8 mg/dl (0.2-1.0); Calcium 8.9 mg/dl (8.6-10.3); Est GFR (African American) 111.2 ml/min; Est GFR (Non-African American) 95.9 ml/min; Globulin 2.9 gm/dl (2.5-4.0); Magnesium 1.7 mg/dl (1.7-2.4); Potassium 3.6 mmol/L (3.5-5.1); Total Protein 6.3 gm/dl (6.0-8.3)
[2023-02-19 05:00] LABS: INR 1.1 (0.9-1.1); Prothrombin Time 11.9 Seconds (9.0-12.0)
[2023-02-19 05:18] LABS: ANTI-Xa, UFH(UnfractionatedHep 0.91 IU/ml (0.3-0.7)
[2023-02-19 07:09] LABS: Estimated Average Glucose 160 mg/dl; Hemoglobin A1C 7.2 % (4.5-5.6)
[2023-02-19] MEDS: FOLIC ACID 1 MG TAB PO SCH ×2 (08:07→21:21)
[2023-02-19] MEDS: CHOLECALCIFEROL 1,000 UNITS 25 MCG TAB PO SCH (08:07)
[2023-02-19] MEDS: PANTOprazole 40 MG TAB PO SCH (08:07)
[2023-02-19] MEDS: ASPIRIN 81 MG ECTAB PO SCH (08:07)
[2023-02-19] MEDS: ATENOLOL 50 MG TABLET PO SCH ×2 (08:07→21:20)
[2023-02-19] MEDS: INSULIN ASPART PER UNIT CHARGE SC SCH ×4 (08:11→21:17)
[2023-02-19] MEDS: LANTUS PER UNIT CHARGE SC SCH (08:14)
--- NOTE | 2023-02-19 08:23 | Electrocardiogram Report ---
Test Reason : Blood Pressure : / mmHG Vent. Rate : 097 BPM Atrial Rate : 097 BPM P-R Int : 178 ms QRS Dur : 078 ms QT Int : 404 ms P-R-T Axes : 076 079 079 degrees QTc Int : 513 ms Sinus rhythm with frequent Premature ventricular complexes Low voltage QRS Cannot rule out Anterior infarct , age undetermined Prolonged QT Abnormal ECG When compared with ECG of 06-SEP-2019 07:05, Premature ventricular complexes are now Present ME interval has decreased Nonspecific T wave abnormality no longer evident in Inferior leads Confirmed by Jf Daniels ([id number]) on 02/19/2023 8:23:31 AM Referred By: REFERRED SELF Confirmed By:Jf Daniels
[2023-02-19] MEDS ORDERED: EMPAGLIFLOZIN 10 MG TAB PO SCH (09:00)
[2023-02-19] MEDS ORDERED: PNEUMOCOCCAL VACCINE (PCV20) 20-VAL CONJ-DIP CRM/PF 0.5 ML SYR IM ONE (09:00)
[2023-02-19 13:27] LABS: ANTI-Xa, UFH(UnfractionatedHep 0.52 IU/ml (0.3-0.7)
[2023-02-19] MEDS: HEPARIN SODIUM/DEXTROSE 25,000 UNITS/500 ML BAG IV SCH (13:47)
--- NOTE | 2023-02-19 14:02 | Pharmacy Report ---
Pharmacy Glycemic Short Note 2 - Date of Service February 19, 2023 - Glycemic Short BSG Results (Last 24 hours): 02/18/23 02/18/23 02/19/23 16:55 23:36 04:05 Glucose 182 H 148 H POC Glucose 128 H 02/19/23 02/19/23 07:26 10:59 Glucose POC Glucose 127 H 150 H OUTPATIENT ANTIDIABETIC REGIMEN: * Jardiance 10 mg daily * HbA1C= 7.2% (02/19/23) ASSESSMENT: * Mr Salcedo is a 72 y/o M with PMH of T2DM who presents with a DVT. Patient is on a heparin drip. * Fasting today is 127 mg/dL. * Lantus 10 units SQ daily (0.1 units/kg). Patient with little PO intake so will not schedule dose this evening. * Novolog weight-based stress of 2/3 PLAN FOR INPATIENT GLYCEMIC CONTROL: * Hold outpatient oral diabetes medications * Basal insulin * Lantus 10 units SQ daily * Bolus insulin * NovoLog per scale ACHS or Q6hrs while NPO * Goal Range: Low 110 mg/dL - High 140 mg/dL * Correction Factor: 25 mg/dL/unit * Nutritional / Prandial insulin per carb ratio of 1 unit per 7 grams CHO consumed
[2023-02-19] MEDS ORDERED: WARFARIN SOD 5 MG TAB PO SCH (16:00)
[2023-02-19] MEDS ORDERED: WARFARIN SOD 10 MG TAB PO SCH (16:00)
[2023-02-19] MEDS ORDERED: FUROSEMIDE 40 MG TAB PO SCH (17:00)
--- NOTE | 2023-02-19 17:01 | Hospitalist Progress Note ---
Date of Service February 19, 2023 Assessment & Plan (1) DVT (deep venous thrombosis): Plan: Nearly occlusive DVT left lower extremity. chronically was supposed to be on warfarin for DVT, however, had stopped taking his medication. No personal history of VTE. No signs or symptoms of pulmonary embolism. - Consider vascular consult for extensive proximal / common femoral DVT - continue heparin drip with 10 AM monitoring. not a good candidate for enoxaparin bridge because of morbid obesity with BMI 43 - restart warfarin 10 mg ordered for 02/19, daily a.m. INR - consider DOAC, his vegetable grower reports he was not on this in 2017 because Eliquis was too costly, however, cost may have substantially improved since then. with his compliance concerns however warfarin may be relatively safer since we can at least follow the INR (2) Cellulitis of lower extremity: Plan: Possible Left lower extremity cellulitis versus simply changes consistent with venous stasis disease - there is some asymmetry with more redness on the left than the right so I will continue ceftriaxone at this time (3) Persistent atrial fibrillation: Plan: his outpatient vegetable grower states that he used to be on Tikosyn but this was stopped because he was having too much ventricular ectopy continue anticoagulation as above - continue rate control with atenolol 50 mg twice daily (4) CAD (coronary artery disease): Plan: History of stents per patient. stable - continue aspirin, rosuvastatin (5) Urinary tract infection: Plan: abnormal UA without symptoms of dysuria urgency or frequency. His mentation may be impaired therefore we will continue antibiotics for now pending further information Await urine culture - continue ceftriaxone (6) Obstructive sleep apnea: Plan: Patient does not wear CPAP at this time due to the national recall on his machine. extreme caution with sedating medications and sleep aid (7) Diabetes: Plan: A1c is 7.2%, he has not been taking his home medications regularly - ordered low-dose glargine and Premeal insulin - blood glucose reviewed 02/19 and is at goal (8) Self-care deficit: Plan: office of aging sent this patient in for evaluation due to not taking medications and his left lower extremity edema. reviewed ED care coordination notes, his neighbors did not voice concerns over self care, and he agreed to go to the ED for evaluation of his leg swelling when prompted to. I spoke today by phone with his vegetable grower Dr. Chi who has followed him for years and knows him well. 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 His physicians noticed a dramatic decrease in his functional status. He stopped going to his primary care physician. He seems to have had a marked cognitive decline. 2 months ago his vegetable grower noticed that he was not taking his warfarin and not following up in clinic for monitoring. This was confirmed by a phone call. He came into the office had Zio patch showing paroxysmal A-fib and tensive PVCs, Tikosyn was stopped. He was very disheveled appearing at the visit and did not seem to be at his previous cognitive baseline. The vegetable grower called his daughter in [place] who came in for a visit. He ordered a brain MRI but it was not done because the patient said had some concerns about the test and cancelled it, made some paranoid sounding statements. On my exam today I spoke with him at length he can give a good although somewhat vague account of past events in his career he is oriented to the hospital and that he has a clot in his leg. He seems vague on details especially short-term details. I am concerned about a subacute to chronic neurodegenerative disorder. He voices no complaints about low mood but makes some vaguely paranoid sounding statements about his outpatient physicians. major depression disorder could mimic as a pseudodementia in the elderly. I believe he has a poor diet and states that he mainly eats sandwiches and snacks from the [employer] [place] near his apartment - Check TSH, thiamine, B12 - speech therapy for cognitive evaluation - consider neurology or psychiatry consultation and neuroimaging if he will allow it - care coordination consult - I plan to call his daughter in [place] however I cannot locate her phone number Plan DVT prophylaxis: Currently anticoagulated Admission and Anticipated Discharge Date Admission Date: February 18, 2023 Subjective Isma states that he has noticed increased left leg swelling for the last few days and it is really bad. Leg is not overtly painful. he denies any chest pain or shortness of breath. He cannot specifically tell me why he stopped taking his medications including warfarin. He seems suspicious of his outpatient physicians and says "there is one bad 1 and 1 good 1" but he cannot be more specific for me. He noticed increased ankle redness this is on both sides but not painful. He denies dysuria or urinary frequency. He lives in an apartment independently. He seems to have a good memory for long-term events but is vague historian and short-term memory is in question Physical Exam 2 Physical Exam: PHYSICAL EXAMINATION Last 24h vital signs reviewed, see documentation in flowsheet General: comfortable appearing, no distress, lying flat in bed, HEENT: Normocephalic, atraumatic, pupils round and equal, sclerae anicteric, no conjunctival injection, moist mucus membranes Lungs: Normal respiratory effort. Clear to auscultation bilaterally. No RRW Heart: Regular rate and rhythm, no murmurs. No JVD Abdomen: Soft, nontender, nondistended. Bowel sounds present. Extremities: Warm, dry, well-perfused. Both lower extremities are edematous, however the left is much more edematous than the right. Bilateral ankle erythema slightly worse on the left skin changes consistent with chronic venous stasis dermatitis, shallow appearing ulcerations covered by eschar on right lateral ankle Neuro: Alert and oriented x hospital and basic situation but answers to questions are vague, can tell me his daily routine but not specifically what he ate yesterday for example, face symmetric, moves 4 extremities well Psych: Normal but somewhat guarded affect, denies depressed mood, states his appetite has been lower and he has lost weight, this is partially intentional, states he sleeps well, no bizarre thought content, thoughts are organized, he makes some vague paranoid statements about his outpatient physicians, normal behavior Results & Data Results & Data Vital Signs (Past 12 Hours) Vital Signs Temp Pulse Pulse Pulse Resp BP Pulse Ox 02/19/23 15:11 36.3 C L 61 20 109/71 95 02/19/23 11:34 36.5 C 64 18 114/75 92 02/19/23 08:08 36.3 C L 65 20 135/74 93 02/19/23 08:00 94 H O2 Del Method 02/19/23 15:11 Room Air 02/19/23 11:34 Room Air 02/19/23 08:08 Room Air 02/19/23 08:00 Laboratory Results 02/19/23 04:05 02/19/23 04:05 PG Care Time/CCT Total # of Minutes Spent Total Time Spent with Patient: I personally spent: 55 minutes today on clinical care activities including: reviewing chart notes and vital signs reviewing old outpatient notes reviewing labs reviewing studies discussion with his primary vegetable grower examining and counseling the patient writing orders documentation Coding Level of Care Code 23836 SUB INP/OBS CARE MIN Diagnoses DVT (deep venous thrombosis) I82.409 Affected thrombotic vein of extremity: unspecified vein of extremity Chronicity: acute DVT location: lower extremity Laterality: unspecified laterality Cellulitis of lower extremity L03.119 Persistent atrial fibrillation I48.1 CAD (coronary artery disease) I25.10 Urinary tract infection N39.0 Obstructive sleep apnea G47.33 Diabetes E11.9 Self-care deficit Z78.9 (1) DVT (deep venous thrombosis) Affected thrombotic vein of extremity: unspecified vein of extremity C hronicity: acute DVT location: lower extremity Laterality: unspecified laterality Qualified Code(s): I82.409 - Acute embolism and thrombosis of unspecified deep veins of unspecified lower extremity
[2023-02-19] MEDS: DOXAZOSIN MESYLATE 1 MG TAB PO SCH (21:20)
[2023-02-19] MEDS: ROSUVASTATIN CALCIUM 20 MG TAB PO SCH (21:22)
[2023-02-19] MEDS: cefTRIAXone SODIUM 2,000 MG in DEXTROSE 5 % MINI-B 50 ML IV SCH (21:27)
[2023-02-20 07:23] LABS: ANTI-Xa, UFH(UnfractionatedHep 0.38 IU/ml (0.3-0.7); INR 1.1 (0.9-1.1); Prothrombin Time 11.8 Seconds (9.0-12.0)
[2023-02-20] MEDS: PANTOprazole 40 MG TAB PO SCH (08:23)
[2023-02-20] MEDS: CHOLECALCIFEROL 1,000 UNITS 25 MCG TAB PO SCH (08:24)
[2023-02-20] MEDS: ATENOLOL 50 MG TABLET PO SCH (08:24)
[2023-02-20] MEDS: FOLIC ACID 1 MG TAB PO SCH ×2 (08:24→20:53)
[2023-02-20] MEDS: ASPIRIN 81 MG ECTAB PO SCH (08:27)
--- NOTE | 2023-02-20 08:29 | Hospitalist Progress Note ---
Date of Service February 20, 2023 Assessment & Plan (1) DVT (deep venous thrombosis): Plan: Nearly occlusive DVT left lower extremity. chronically was supposed to be on warfarin for DVT, however, had stopped taking his medication. No personal history of VTE. No signs or symptoms of pulmonary embolism. - Consider vascular consult for extensive proximal / common femoral DVT - continue heparin drip with Xa monitoring. Xa level therapeutic today, not a good candidate for enoxaparin bridge because of morbid obesity with BMI 43. can consider near time of discharge for few doses - restart warfarin 10 mg ordered for 02/19, 02/20, daily a.m. INR. 1.0 today - consider DOAC, his block out machine operator reports he was not on this in 2017 because Eliquis was too costly, however, cost may have substantially improved since then. with his compliance concerns however warfarin may be relatively safer since we can at least follow the INR (2) Cellulitis of lower extremity: Plan: Possible Left lower extremity cellulitis versus simply changes consistent with venous stasis disease - there is some asymmetry with more redness on the left than the right so I will continue ceftriaxone at this time (3) Persistent atrial fibrillation: Plan: his outpatient block out machine operator states that he used to be on Tikosyn but this was stopped because he was having too much ventricular ectopy continue anticoagulation as above -continue rate control with atenolol but decrease to 25 bid because of hypotension (was not actually taking meds at home so 50 bid may be too high of a dose) -hold lasix today (4) CAD (coronary artery disease): Plan: History of stents per patient. stable - continue aspirin, rosuvastatin (5) Urinary tract infection: Plan: abnormal UA without symptoms of dysuria urgency or frequency. His mentation may be impaired therefore we will continue antibiotics for now pending further information urine culture grew group B strep - continue ceftriaxone (6) Obstructive sleep apnea: Plan: Patient does not wear CPAP at this time at home - has stated variable reasons for this extreme caution with sedating medications and sleep aid - agrees to use in hospital, ordered (7) Diabetes: Plan: A1c is 7.2%, he has not been taking his home medications regularly - ordered low-dose glargine and Premeal insulin - blood glucose reviewed 02/20 and is at goal (8) Self-care deficit: Plan: office of aging sent this patient in for evaluation due to not taking medications and his left lower extremity edema. reviewed ED care coordination notes, his neighbors did not voice concerns over self care, and he agreed to go to the ED for evaluation of his leg swelling when prompted to. I spoke today by phone with his block out machine operator Dr. Chi who has followed him for years and knows him well. 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 His physicians noticed a dramatic decrease in his functional status. He stopped going to his primary care physician. He seems to have had a marked cognitive decline. 2 months ago his block out machine operator noticed that he was not taking his warfarin and not following up in clinic for monitoring. This was confirmed by a phone call. He came into the office had Zio patch showing paroxysmal A-fib and tensive PVCs, Tikosyn was stopped. He was very disheveled appearing at the visit and did not seem to be at his previous cognitive baseline. The block out machine operator called his daughter in [place] who came in for a visit. He ordered a brain MRI but it was not done because the patient said had some concerns about the test and cancelled it, made some paranoid sounding statements. On my exam today I spoke with him at length he can give a good although somewhat vague account of past events in his career he is oriented to the hospital and that he has a clot in his leg. He seems vague on details especially short-term details and cannot remember his daughter's phone number or names and doses of some longstanding meds he's taken for years. He admits his short term memory has been poor. I am concerned about a subacute to chronic neurodegenerative disorder. He voices no complaints about low mood but makes some vaguely paranoid sounding statements about his outpatient physicians. major depression disorder could mimic as a pseudodementia in the elderly. I believe he has a poor diet and states that he mainly eats sandwiches and snacks from the [employer] near his apartment - Checked TSH 3.9, thiamine - P, B12 504 - speech therapy for cognitive evaluation - discussed my concerns with the speech therapist - consider neurology or psychiatry consultation and neuroimaging if he will allow it - care coordination consult - I plan to call his daughter in [place] Isma could not recall her phone number but I found to phone numbers in his cell phone he thinks are hers: [phone] left VM 02/20 her name is Tricia, he also has a brother Plan DVT prophylaxis: Currently anticoagulated Admission and Anticipated Discharge Date Admission Date: February 18, 2023 Subjective Isma is doing okay today about the same. His left leg swelling remains very prominent but not painful. He seems forgetful but oriented to the very basic situation of the hospital and a blood clot at least when prompted. No chest pain no shortness of breath. States he is willing to wear CPAP at night Physical Exam 2 Physical Exam: PHYSICAL EXAMINATION Last 24h vital signs reviewed, see documentation in flowsheet General: comfortable appearing, no distress, sitting up in the chair Exam 02/20 is unchanged HEENT: Normocephalic, atraumatic, pupils round and equal, sclerae anicteric, no conjunctival injection, moist mucus membranes Lungs: Normal respiratory effort. Clear to auscultation bilaterally. No RRW Heart: Regular rate and rhythm, no murmurs. No JVD Abdomen: Soft, nontender, nondistended. Bowel sounds present. Extremities: Warm, dry, well-perfused. Both lower extremities are edematous, however the left is much more edematous than the right. Bilateral ankle erythema slightly worse on the left skin changes consistent with chronic venous stasis dermatitis, shallow appearing ulcerations covered by eschar on right lateral ankle . lower extremity exam is unchanged 02/20 Neuro: Alert and oriented x hospital and basic situation but answers to questions are vague, cannot remember the name of his very longstanding antihypertensive medicine atenolol for example or how many warfarin tablets usually takes on different days of the week, cannot recall why he stopped using CPAP but blamed to the athletic field custodian and also said he was being charged too much money, face symmetric, moves 4 extremities well Psych: exam from 02/19: Normal but somewhat guarded affect, denies depressed mood, states his appetite has been lower and he has lost weight, this is partially intentional, states he sleeps well, no bizarre thought content, thoughts are organized, he makes some vague paranoid statements about his outpatient physicians, normal behavior Results & Data Results & Data Vital Signs (Past 12 Hours) Vital Signs Temp Pulse Pulse Resp BP Pulse Ox O2 Del Method 02/20/23 07:17 62 02/19/23 23:40 36.4 C L 59 L 17 99/65 L 94 Room Air Laboratory Results 02/19/23 04:05 02/19/23 04:05 PG Care Time/CCT Total # of Minutes Spent Total Time Spent with Patient: Total time spent is greater than 50% in coordination of care (as documented) at patient's floor/unit and/or counseling patient: Coding Level of Care Code 41539 SUB INP/OBS CARE 2/35MIN Diagnoses DVT (deep venous thrombosis) I82.409 Affected thrombotic vein of extremity: unspecified vein of extremity Chronicity: acute DVT location: lower extremity Laterality: unspecified laterality Cellulitis of lower extremity L03.119 Persistent atrial fibrillation I48.1 CAD (coronary artery disease) I25.10 Urinary tract infection N39.0 Obstructive sleep apnea G47.33 Diabetes E11.9 Self-care deficit Z78.9 (1) DVT (deep venous thrombosis) Affected thrombotic vein of extremity: unspecified vein of extremity C hronicity: acute DVT location: lower extremity Laterality: unspecified laterality Qualified Code(s): I82.409 - Acute embolism and thrombosis of unspecified deep veins of unspecified lower extremity
[2023-02-20] MEDS: INSULIN ASPART PER UNIT CHARGE SC SCH ×4 (08:42→21:10)
[2023-02-20] MEDS: LANTUS PER UNIT CHARGE SC SCH (08:43)
[2023-02-20] MEDS: HEPARIN SODIUM/DEXTROSE 25,000 UNITS/500 ML BAG IV SCH (08:44)
[2023-02-20] MEDS ORDERED: WARFARIN SOD 10 MG TAB PO SCH ×2 (16:00)
[2023-02-20] MEDS: DOXAZOSIN MESYLATE 1 MG TAB PO SCH (20:53)
[2023-02-20] MEDS: ROSUVASTATIN CALCIUM 20 MG TAB PO SCH (20:54)
[2023-02-20] MEDS: cefTRIAXone SODIUM 2,000 MG in DEXTROSE 5 % MINI-B 50 ML IV SCH (20:55)
[2023-02-20] MEDS ORDERED: ATENOLOL 25 MG TABLET PO SCH (21:00)
[2023-02-21] MEDS: HEPARIN SODIUM/DEXTROSE 25,000 UNITS/500 ML BAG IV SCH ×2 (03:10→22:05)
--- NOTE | 2023-02-21 05:53 | Electrocardiogram Report ---
Test Reason : Blood Pressure : / mmHG Vent. Rate : 092 BPM Atrial Rate : 092 BPM P-R Int : 172 ms QRS Dur : 080 ms QT Int : 396 ms P-R-T Axes : 050 056 037 degrees QTc Int : 489 ms Sinus rhythm with frequent Premature ventricular complexes Low voltage QRS Prolonged QT Abnormal ECG When compared with ECG of 18-FEB-2023 16:32, No significant change Confirmed by Jimmy Lanier ([id number]) on 02/21/2023 5:52:31 AM Referred By: REFERRED SELF Confirmed By:Jimmy Lanier
[2023-02-21 07:16] LABS: ANTI-Xa, UFH(UnfractionatedHep 0.45 IU/ml (0.3-0.7); INR 1.1 (0.9-1.1); Prothrombin Time 12.4 Seconds (9.0-12.0)
[2023-02-21] MEDS: INSULIN ASPART PER UNIT CHARGE SC SCH ×4 (09:33→20:27)
[2023-02-21] MEDS: LANTUS PER UNIT CHARGE SC SCH (09:41)
[2023-02-21] MEDS: PANTOprazole 40 MG TAB PO SCH (09:44)
[2023-02-21] MEDS: FOLIC ACID 1 MG TAB PO SCH ×2 (09:45→20:27)
[2023-02-21] MEDS: CHOLECALCIFEROL 1,000 UNITS 25 MCG TAB PO SCH (09:45)
[2023-02-21] MEDS: ASPIRIN 81 MG ECTAB PO SCH (09:45)
[2023-02-21] MEDS: METOPROLOL TARTRATE 25 MG TAB PO SCH ×2 (09:46→20:26)
[2023-02-21] MEDS ORDERED: WARFARIN SOD 10 MG TAB PO SCH (16:00)
--- NOTE | 2023-02-21 17:09 | Hospitalist Progress Note ---
Date of Service February 21, 2023 Assessment & Plan (1) DVT (deep venous thrombosis): Plan: Nearly occlusive DVT left lower extremity. chronically was supposed to be on warfarin for DVT, however, had stopped taking his medication. No personal history of VTE. No signs or symptoms of pulmonary embolism. - Consider vascular consult for extensive proximal / common femoral DVT - continue heparin drip with Xa monitoring. Xa level therapeutic today, not a good candidate for enoxaparin bridge because of morbid obesity with BMI 43. can consider near time of discharge for few doses - restart warfarin 10 mg ordered for 02/19, 02/20, 02/21, daily a.m. INR. remains 1.0 02/21 - consider DOAC, his fitness and wellness instructor reports he was not on this in 2017 because Eliquis was too costly, however, cost may have substantially improved since then. with his compliance concerns however warfarin may be relatively safer since we can at least follow the INR. (2) Cellulitis of lower extremity: Plan: Possible Left lower extremity cellulitis versus simply changes consistent with venous stasis disease - there is some asymmetry with more redness on the left than the right so I will continue antibiotics at this time, also will cover GBS in urine, will change ceftriaxone to keflex po complete 7d course (3) Persistent atrial fibrillation: Plan: his outpatient fitness and wellness instructor states that he used to be on Tikosyn but this was stopped because he was having too much ventricular ectopy continue anticoagulation as above -continue rate control bp too low on atenolol so changed to metoprolol 12.5 mg bid -hold lasix for now until BP improved (4) CAD (coronary artery disease): Plan: History of stents per patient. stable - continue aspirin, rosuvastatin (5) Urinary tract infection: Plan: abnormal UA without symptoms of dysuria urgency or frequency. urine culture grew group B strep. unable to determine whether UTI - mentation is impaired but seems mostly chronic, so this may be asymptomatic bacteriuria. -ceftriaxone ---> keflex x 7d (6) Obstructive sleep apnea: Plan: Patient does not wear CPAP at this time at home - has stated variable reasons for this extreme caution with sedating medications and sleep aid - agrees to use in hospital, ordered (7) Diabetes: Plan: A1c is 7.2%, he has not been taking his home medications regularly - ordered low-dose glargine and Premeal insulin - blood glucose reviewed 02/21 and is at goal - pharmacist managing (8) Self-care deficit: Plan: office of aging sent this patient in for evaluation due to not taking medications and his left lower extremity edema. reviewed ED care coordination notes, his neighbors did not voice concerns over self care, and he agreed to go to the ED for evaluation of his leg swelling when prompted to. I spoke today by phone with his fitness and wellness instructor Dr. Chi who has followed him for years and knows him well. 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 His physicians noticed a dramatic decrease in his functional status. He stopped going to his primary care physician. He seems to have had a marked cognitive decline. 2 months ago his fitness and wellness instructor noticed that he was not taking his warfarin and not following up in clinic for monitoring. This was confirmed by a phone call. He came into the office had Zio patch showing paroxysmal A-fib and tensive PVCs, Tikosyn was stopped. He was very disheveled appearing at the visit and did not seem to be at his previous cognitive baseline. The fitness and wellness instructor called his daughter in [place] who came in for a visit. He ordered a brain MRI but it was not done because the patient said had some concerns about the test and cancelled it, made some paranoid sounding statements. 02/20 - I spoke with him at length he can give a good although somewhat vague account of past events in his career he is oriented to the hospital and that he has a clot in his leg. He seems vague on details especially short-term details and cannot remember his daughter's phone number or names and doses of some longstanding meds he's taken for years. He admits his short term memory has been poor. I am concerned about a subacute to chronic neurodegenerative disorder. He voices no complaints about low mood but makes some vaguely paranoid sounding statements about his outpatient physicians. major depression disorder could mimic as a pseudodementia in the elderly. I believe he has a poor diet and states that he mainly eats sandwiches and snacks from the [employer] [place] near his apartment 02/21 - he could not remember meeting me before. oriented to hospital, here for leg swelling, when further prompted blood clot. I spoke with his daughter Tricia by phone 02/21 she has noticed that he is mentally slower for the past year but was not worried about it, then he got worse over the past 6 months. She had to call the police to take him home 1-2 months ago because he had wandered off and didn't know how to get home. She has been trying to convince him to move to assisted living or a nursing facility but he has been resistant. I told her I was concerned about dementia and that we were doing some testing for other types of memory impairment that are reversible At this time based on my observations he lacks decisional capacity for major decisions, is not safe for independent discharge. Tricia spoke to him today and he seemed more cooperative with a little better insight into his condition. To me he did admit to having short term memory problems recently - Checked TSH 3.9, thiamine - P, B12 504 - speech therapy for cognitive evaluation - moderate cognitive impairment identified - consulted neurology - discussed with care coordination, PT/OT angel ordered - daughter is Tricia: [phone] lives in [place], he also has a brother Plan DVT prophylaxis: Currently anticoagulated Admission and Anticipated Discharge Date Admission Date: February 18, 2023 Subjective Isma feels fine with no change in LLE swelling but no LLE pain. "And who are you?" Can't remember me from last two days of visits even though we had fairly long conversations. Physical Exam 2 Physical Exam: PHYSICAL EXAMINATION Last 24h vital signs reviewed, see documentation in flowsheet General: comfortable appearing, no distress, sitting up in the chair again HEENT: Normocephalic, atraumatic, pupils round and equal, sclerae anicteric, no conjunctival injection, moist mucus membranes Lungs: Normal respiratory effort. Clear to auscultation bilaterally. No RRW Heart: Regular rate and rhythm, no murmurs. No JVD Abdomen: Soft, nontender, nondistended. Bowel sounds present. Extremities: Warm, dry, well-perfused. Both lower extremities are edematous, however the left is much more edematous than the right. LLE seems softer and improved today. Bilateral ankle erythema slightly worse on the left skin changes consistent with chronic venous stasis dermatitis, shallow appearing ulcerations covered by eschar on right lateral ankle Neuro: Alert and oriented x hospital and basic situation (says he is here for leg swelling and when prompted, blood clot), but answers to questions are vague, cannot remember me from fairly thorough visits the last two days and asked "And who are you?" when I came in. Thought it was still the and when I told him it was Tuesday he said it was the government's fault for changing the days of the week around. Psych: exam from 02/19: Normal but somewhat guarded affect, denies depressed mood, states his appetite has been lower and he has lost weight, this is partially intentional, states he sleeps well, no bizarre thought content, thoughts are organized, he makes some vague paranoid statements about his outpatient physicians, frequently blames the government or accounts receivable representative for things, normal behavior, cooperative Results & Data Results & Data Vital Signs (Past 12 Hours) Vital Signs Temp Pulse Pulse Resp BP Pulse Ox O2 Del Method 02/21/23 15:35 36.4 C L 70 18 100/64 92 Room Air 02/21/23 11:26 36.9 C 73 18 107/70 92 Room Air 02/21/23 08:00 72 02/21/23 07:28 36.6 C 67 19 96/52 L 93 Room Air Laboratory Results 02/19/23 04:05 02/19/23 04:05 INR 1.1 Xa 0.45 PG Care Time/CCT Total # of Minutes Spent Total Time Spent with Patient: I personally spent: 50 minutes today on clinical care activities including: reviewing chart notes and vital signs reviewing labs arranging consultation discussion with manager respiratory care examining and counseling the patient counseling the patient's family writing orders, managing anticoagulation documentation Coding Level of Care Code 47300 SUB INP/OBS CARE 3/50MIN Diagnoses DVT (deep venous thrombosis) I82.409 Affected thrombotic vein of extremity: unspecified vein of extremity Chronicity: acute DVT location: lower extremity Laterality: unspecified laterality Cellulitis of lower extremity L03.119 Persistent atrial fibrillation I48.1 CAD (coronary artery disease) I25.10 Urinary tract infection N39.0 Obstructive sleep apnea G47.33 Diabetes E11.9 Self-care deficit Z78.9 (1) DVT (deep venous thrombosis) Affected thrombotic vein of extremity: unspecified vein of extremity C hronicity: acute DVT location: lower extremity Laterality: unspecified laterality Qualified Code(s): I82.409 - Acute embolism and thrombosis of unspecified deep veins of unspecified lower extremity
[2023-02-21] MEDS: cephALEXin 500 MG CAP PO SCH (20:26)
[2023-02-21] MEDS: ROSUVASTATIN CALCIUM 20 MG TAB PO SCH (20:27)
[2023-02-21] MEDS: DOXAZOSIN MESYLATE 1 MG TAB PO SCH (20:27)
[2023-02-22 07:54] LABS: ANTI-Xa, UFH(UnfractionatedHep 0.39 IU/ml (0.3-0.7); INR 1.4 (0.9-1.1); Prothrombin Time 15.5 Seconds (9.0-12.0)
[2023-02-22] MEDS ORDERED: WARFARIN SOD 10 MG TAB PO ONE (08:56)
[2023-02-22] MEDS: METOPROLOL TARTRATE 25 MG TAB PO SCH ×2 (09:38→21:53)
[2023-02-22] MEDS: ASPIRIN 81 MG ECTAB PO SCH (09:38)
[2023-02-22] MEDS: FOLIC ACID 1 MG TAB PO SCH ×2 (09:38→21:53)
[2023-02-22] MEDS: cephALEXin 500 MG CAP PO SCH ×4 (09:38→21:52)
[2023-02-22] MEDS: PANTOprazole 40 MG TAB PO SCH (09:38)
[2023-02-22] MEDS: CHOLECALCIFEROL 1,000 UNITS 25 MCG TAB PO SCH (09:38)
[2023-02-22] MEDS: INSULIN ASPART PER UNIT CHARGE SC SCH ×4 (09:39→21:00)
[2023-02-22] MEDS: LANTUS PER UNIT CHARGE SC SCH (09:45)
[2023-02-22] MEDS: HEPARIN SODIUM/DEXTROSE 25,000 UNITS/500 ML BAG IV SCH (17:23)
--- NOTE | 2023-02-22 20:12 | Hospitalist Progress Note ---
Date of Service February 22, 2023 Assessment & Plan (1) DVT (deep venous thrombosis): Plan: Nearly occlusive DVT left lower extremity. Etiology?? Immobility? Other? Remains on heparin drip. warfarin 10 mg ordered for 02/19, 02/20, 02/21, and again today. INR 1.4 today. Repeat INR am. No clinical signs/symptoms of PE. (2) Cellulitis of lower extremity: Plan: resolved clinically previously on rocephin - now on keflex PO complete 7 days in total of Rx (3) Persistent atrial fibrillation: Plan: his outpatient category planner states that he used to be on Tikosyn but this was stopped because he was having too much ventricular ectopy cont heparin/warfarin cont metoprolol 12.5mg BID - rates acceptable with such (4) CAD (coronary artery disease): Plan: s/p stents in the past Cont metoprolol Cont aspirin, rosuvastatin (5) Urinary tract infection: Plan: 2nd GBS remains on keflex no symptoms (6) Obstructive sleep apnea: Plan: cont CPAP (7) Diabetes: Plan: Hba1c 7.2% pharmacy providing glycemic oversight cont basal-bolus insulin (8) Self-care deficit: Plan: progressive over 6-12 months outpatient providers have noted cognitive decline early dementia process? TSH wnl B12 wnl B1 level pending consider imaging of brain (MRI) will need neuropsych testing post-d/c with neurology if possible (9) Morbid obesity with BMI of 40.0-44.9, adult: Plan: BMI 43 (10) Cognitive impairment: Plan: see above Plan will need placement cannot live alone PT, OT Admission and Anticipated Discharge Date Admission Date: February 18, 2023 Subjective no events overnight sitting in chair during the visit impulsive- wanting to stand up at times a little confused although he remembers that he is here due to the "DVT in my leg" was tearful talking about his family, ex-, daughter, etc denies any physical complaints Review of Systems Review of Systems: cv - no chest pain pulm - no dyspnea or PARISI GI - no abd pain/nausea/emesis Physical Exam Physical Exam: gen - NAD, obese, sitting in chair, a little confused neck - no obvious JVD mouth - MMM heart - irregularly irregular, s1 s2, no murmur lungs - CTA b/l abd - soft NT ND BS+ ext - RLE edema 1+; LLE edema 2-3+ (left calf is much larger than right calf) skin - no cellulitis left leg; stasis changes b/l legs Results & Data Results & Data Vital Signs (Past 12 Hours) Vital Signs Temp Pulse Pulse Resp BP Pulse Ox O2 Del Method 02/22/23 19:00 36.2 C L 82 19 124/69 94 Room Air 02/22/23 17:46 78 02/22/23 15:35 36.3 C L 80 93 H 111/72 93 Room Air 02/22/23 11:38 36.3 C L 77 18 100/55 L 95 Room Air 02/22/23 08:26 80 Laboratory Results Laboratory Results - last 24 hr 02/22/23 02/22/23 02/22/23 06:08 07:30 11:33 PT 15.5 H INR 1.4 H Heparin Anti-Xa, Unfract 0.39 POC Glucose 118 H 147 H 02/22/23 16:27 PT INR Heparin Anti-Xa, Unfract POC Glucose 103 H PG Care Time/CCT Total # of Minutes Spent Total Time Spent with Patient: Total time spent is greater than 50% in coordination of care (as documented) at patient's floor/unit and/or counseling patient: Coding Level of Care Code 64593 SUB INP/OBS CARE MIN Diagnoses DVT (deep venous thrombosis) I82.409 Affected thrombotic vein of extremity: unspecified vein of extremity Chronicity: acute DVT location: lower extremity Laterality: unspecified laterality Cellulitis of lower extremity L03.119 Persistent atrial fibrillation I48.1 CAD (coronary artery disease) I25.10 Urinary tract infection N39.0 Obstructive sleep apnea G47.33 Diabetes E11.9 Self-care deficit Z78.9 Morbid obesity with BMI of 40.0-44.9, adult E66.01; Z68.41 Cognitive impairment R41.89 (1) DVT (deep venous thrombosis) Affected thrombotic vein of extremity: unspecified vein of extremity Chronicity: acute DVT location: lower extremity Laterality: unspecified laterality Qualified Code(s): I82.409 - Acute embolism and thrombosis of unspecified deep veins of unspecified lower extremity
[2023-02-22] MEDS: ROSUVASTATIN CALCIUM 20 MG TAB PO SCH (21:52)
[2023-02-22] MEDS: DOXAZOSIN MESYLATE 1 MG TAB PO SCH (21:53)
[2023-02-23 08:43] LABS: INR 1.9 (0.9-1.1); Prothrombin Time 19.8 Seconds (9.0-12.0)
[2023-02-23 08:56] LABS: BUN Creatinine Ratio 12.3 (10-20); Calcium 8.9 mg/dl (8.6-10.3); Creatinine Clr Calc Pharmacy 117.7 ml/min; Est GFR (African American) 106.7 ml/min; Potassium 3.8 mmol/L (3.5-5.1)
[2023-02-23] MEDS: ASPIRIN 81 MG ECTAB PO SCH (09:40)
[2023-02-23] MEDS: cephALEXin 500 MG CAP PO SCH ×4 (09:40→20:00)
[2023-02-23] MEDS: CHOLECALCIFEROL 1,000 UNITS 25 MCG TAB PO SCH (09:41)
[2023-02-23] MEDS: PANTOprazole 40 MG TAB PO SCH (09:41)
[2023-02-23] MEDS: METOPROLOL TARTRATE 25 MG TAB PO SCH ×2 (09:41→20:01)
[2023-02-23] MEDS: FOLIC ACID 1 MG TAB PO SCH ×2 (09:41→20:01)
[2023-02-23] MEDS: INSULIN ASPART PER UNIT CHARGE SC SCH ×4 (09:48→23:09)
[2023-02-23] MEDS: LANTUS PER UNIT CHARGE SC SCH (09:49)
[2023-02-23] MEDS ORDERED: WARFARIN SOD 7.5 MG TAB PO ONE (09:50)
[2023-02-23] MEDS ORDERED: Nursing to Pharmacy Communication SCH (10:00)
[2023-02-23] MEDS ORDERED: HEPARIN SOD (PORCINE) 1000 UNIT/ML IV ONE (10:26)
[2023-02-23] MEDS: FUROSEMIDE 20 MG TAB PO SCH (10:52)
--- NOTE | 2023-02-23 11:20 | Pharmacy Report ---
Pharmacy Glycemic Sign Off Nt - Date of Service February 23, 2023 - Assessment & Plan ASSESSMENT: * Pharmacy was consulted by Dr Shea on 02/18 for glycemic control and to write orders per [facility] inpatient glycemic control protocol. * Major changes made by pharmacy to antidiabetic regimen include: * Added novolog and basal * Patient has been receiving/requiring 20-30 units of insulin per day for adequate glycemic control * Regimen has only required minor adjustments over the past 48hrs to achieve this level of control * Do not anticipate further changes in patient status that would quickly deteriorate glycemic control (i.e. patient to be NPO for upcoming procedure, steroids tapering, starting tube feedings, etc). * Please see recommendations for outpatient antidiabetic regimen below. PLAN FOR INPATIENT GLYCEMIC CONTROL: No changes needed to current regimen. * Continue basal insulin with Lantus 10-15 units once daily based upon BSG * Continue NovoLog per scale ACHS/Q6hrs while NPO * Goal range = 110 - 140 mg/dl * CF = 25 mg/dl/unit * CR = 1 unit for ever 7 g CHO consumed * Pharmacy is signing off of glycemic consult and will no longer be making adjustments to inpatient regimen. Please feel free to re-consult if needed. Thank you.
[2023-02-23] MEDS: HEPARIN SODIUM/DEXTROSE 25,000 UNITS/500 ML BAG IV SCH ×2 (11:43→17:28)
--- NOTE | 2023-02-23 14:04 | Psychiatric Consultation ---
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 He uses polemics against supposed common foes ("damned marketing strategy analyst!") or overinclusive tangents in what I think is an attempt to impress listeners with his cognitive skills while at the same time serving as distractions to avoid addressing verifiable specifics that might show areas of weakness. I'm absolutely certain that his cognition has diminished from the height of abilities. Since I think that was pretty high, "average" for him represents significant cognitive decline. He retains strong language skills, though I think some of his diatribes are well-practiced set pieces. I don't think he cares much about his health and that this poor motivation contributes to his poor treatment adherence, but I don't think that represents depression - he certainly cares vehemently about his academic passions of yore. I suspect he's always been a "character" (and that this may have been a factor in his having been "pushed out" of his career and his referring to plural ex-wives) and that going counter to expectations (or just generally against the flow) is "on- brand" for him. I'm confident he has mild cognitive impairment, but at this time in my opinion he has the capacity to make healthcare decisions. I'm equally confident that the decisions he makes will often confound and dismay people who think that looking after ones health is important. I suspect that neuropsychological assessment and functional brain imaging would show evidence of some degree of actual dementia, but I'd be surprised if he were very willing to pursue this. Overall I spent a total of 82 minutes on the floor for this consultation assessment including review of chart records, review of test results, direct evaluation of the patient [id number], risk assessment, discussion with the psychiatric liaison nurse, and documentation in the electronic health record. (1) Encounter for assessment of healthcare decision-making capacity: Plan Pt has the capacity to make healthcare decisions Psych History Identifying Data NINO SEAMAN is a 72-year-old M with no clear psychiatric history, admitted on 02/18/2023 for DVT. Consult is by the hospitalist service for "suspected dementia or MCI; FTT; capacity assessmen". Chief Complaint "Ah... i've got this DVT". History of Present Illness As part of a thorough review of the available medical records, I have read and incorporated into my assessment the following note by the ED physician: "72-year-old male presents emergency department for lower extremity swelling. Patient reports he has been having increased swelling of his left leg but also swelling of his right leg. Denies any falls or traumas. He denies any chest pain or difficulty breathing. Patient states he has not been taking his medications as prescribed Nursing reports that the patient was sent in by the office of aging as they were concerned that the patient had not been taking his medications or was taking care of himself. Poor self-care at home evaluated by [facility] found to have a swollen left leg and sent to the ER for further evaluation and treatment. The patient does admit he has not been taking his home medications as prescribed thankfully it is not a financial issue he just sometimes does not feel like it and sometimes forgets he does live at home alone. 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 The patient does admit he has not been taking his home medications as prescribed thankfully it is not a financial issue he just sometimes does not feel like it and sometimes forgets he does live at home alone. 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 He awake, alert, and at least superficially cooperative. I told him that "one reason I'm here is because I've been asked to assess your capacity to make healthcare decisions" and that the [facility] had expressed concerns. He is oriented to person, place, time, and circumstances. He says he's hospitalized with a "DVT" and is able to explain what that means including that "if it's not treated it can break off and go to your heart and kill you". He says there's a good chance it happened because he wasn't taking his medication properly. He relates some of his interactions with cardiologists recently and says that if he doesn't get along with a doctor he tends not to take medication prescribed by them. He becomes annoyed when I try to explore his treatment nonadherence further and starts railing against "marketing strategy analyst" that make things complicated for others (ranting about marketing strategy analyst appears to be a favored topic for him), suggesting that questions about his following the treatment plan are motivated by liability concerns. When I asked if he thought the [facility] On A[facility] would have any sort of liability here at all, he said "of course not, but they're all a bunch of fish bureaucrats". Pt is able to name health problems i ncluding "DVT", "sleep apnea", "diabetes", "high blood pressure" and "all sorts of stuff". He says he's on "blood pressure medication" (which he can't name), "a cholesterol pill", "Coumadin", and "Lasix" but doesn't list Jardiance. He says he doesn't use his CPAP machine "because of that recall", though he thinks that recall is bogus and motivated by marketing strategy analyst looking for a class action settlement. He doesn't know if his machine is a Tre-[employer] machine and seems to think the recall was very recent, though it was in August of 2020. He says that prior to then he "used it faithfully" because "it's really important to get oxygen whle you sleep". He hasn't considered consulting a sleep specialist or even his PCP about what he should do about his machine. 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 He speaks about how much he loved comparative law (especially comparing common-law based legal systems with those based on the Napoleonic code, and waxed rhapsodic about the role of notaries in the latter) and academia, but doesn't seem to have much in the way of current interests or activities. He denies depression symptoms such as sadness, hopelessness, excessive guilt, or suicidal thoughts but does acknowledge some anhedonia. His energy is chronically low and his sleep c hronically poor, which he relates, plausibly, to his known medical problems. He's evasive when asked whether he's noticed any memory problems (mostly starts criticizing "marketing strategy analyst" again). Past Psychiatric History Previous Psych History: none known Allergies Allergy/AdvReac Type Severity Reaction Status Date / Time No Known Allergies Allergy Verified 02/18/23 17:02 Home Medications Medication Instructions Recorded Confirmed Type aspirin 81 mg tablet,delayed 81 mg PO QAM 05/18/18 02/18/23 History release doxazosin 1 mg tablet (Cardura) 1 mg PO QPM 05/18/18 02/18/23 History folic acid 1 mg tablet 1 mg PO BID 05/18/18 02/18/23 History multivitamin 1 tab PO QAM 05/18/18 02/18/23 History rosuvastatin 20 mg tablet 20 mg PO QPM 05/18/18 02/18/23 History acetaminophen 500 mg tablet 1,000 mg PO Q6H PRN Fever Or Pain 08/14/18 02/18/23 History (Acetaminophen Pain Relief) albuterol sulfate 90 mcg/actuation 2 puff inhalation Q6H PRN Wheezing 08/14/18 02/18/23 History aerosol inhaler coenzyme Q10 400 mg capsule 400 mg PO QAM 08/14/18 02/18/23 History nitroglycerin 0.4 mg sublingual 0.4 mg sublingual .EVERY 5 MIN PRN 08/14/18 02/18/23 History tablet (Nitrostat) Chest Pain cholecalciferol (vitamin D3) 50 50 mcg PO DAILY 09/04/19 02/18/23 History mcg (2,000 unit) capsule (Vitamin D3) furosemide 40 mg tablet (Lasix) 40 mg PO QPM 09/04/19 02/18/23 History atenolol 50 mg tablet 50 mg PO BID 02/18/23 02/18/23 History empagliflozin 10 mg tablet 10 mg PO QAM 02/18/23 02/18/23 History (Jardiance) pantoprazole 40 mg tablet,delayed 40 mg PO DAILY 02/18/23 02/18/23 History release warfarin 5 mg tablet 5 mg PO UD 02/18/23 02/18/23 History Patient History Medical History (Updated 02/23/23 @ 20:36 by Herrera Shea MD) Obstructive sleep apnea Urinary tract infection Cellulitis of lower extremity Arthritis of left hip Hip bursitis, left Diastolic heart failure CAD (coronary artery disease) s/p BMS to RCA in 1997 IBS (irritable bowel syndrome) Chronic obstructive pulmonary disease controlled w/ inhaler Sleep apnea CPAP- not currently using due to worries about safety after recall, to speak w/ dr about Osteoarthritis Diabetes mellitus, type 2 NIDDM- no longer taking metformin due to bowel issues per pt Hearing deficit [place] Hyperlipidemia Atrial fibrillation dx 1 year ago - on warfarin - follows dr. ruiz needs cardioversion and had cardioversion x 2 about a year ago 09/22/21- last visit w/ joseph about 6 mos ago, states is due for another visit Pilonidal cyst Depression Obesity Anemia Migraines Myocardial infarction 1997 Chronic GERD Hypertension Surgical History History of heart artery stent 1997 - [place] - 1 stent placed - hospital in [place], [place] reports had another cath early in [facility] - no stents/angioplasty now follows w/ dr ruiz- 6 mos since last visit History of cataract surgery right and left History of total hip arthroplasty RT History of total shoulder replacement BL History of esophagogastroduodenoscopy (EGD) H/O colonoscopy Hx laparoscopic cholecystectomy Family History Brother Family history of diabetes mellitus X2 Social History Smoking Status: Former smoker Second Hand Exposure: No; Do You Dip or Chew Tobacco: No; Hx Alcohol Use: No Hx Substance Use: No Preferred Language: Israeli Communication Ability: Effective General Assignment Reporter Required: No Beliefs That Will Affect Care: Yazidism Yazidism Beliefs: Pentecostal Current Living Situation: Alone Feels Safe at Home: Yes Assistive Devices: Walker Physical Exam Psychiatric: Orientation: alert, oriented to person, oriented to place, oriented to time and cooperative (superficially, but deflects often) Apperanc e: appropriately dressed and appropriately groomed Eye Contact: good eye contact Motor Behavior: no abnormal motor movements Speech: normal rate/rhythm/volume of speech Affect: + irritable affect Mood: + irritable mood Thought Process: + circumstantial thought process and + tangential thought process Thought Content: reality based without delusions Suicidal Thoughts: denies suicidal thoughts, denies suicidal plan and denies suicidal intent Homicidal Thoughts: denies homicidal thoughts Hallucinations: no auditory hallucinations and no visual hallucinations Cognition: recent memory grossly intact (light on detail and somewhat vague), remote memory grossly intact, attention grossly intact and language grossly intact Estimated Intelligence: consistent with education level Insight: + limited insight Judgment: + limited judgement Vital Signs (Past 24 Hours): Last Vital Signs Temp 36.3 C L 02/23/23 11:12 Pulse 82 02/23/23 11:12 Resp 17 02/23/23 11:12 BP 104/69 02/23/23 11:12 Pulse Ox 95 02/23/23 11:12 O2 Del Method Room Air 02/23/23 11:12 Review of Systems Psychiatric: + anhedonia, + abnormal sleep pattern and + difficulty concentrating; no depression, no hopelessness, no suicidal ideation, no paranoia and no hallucinations Results & Data (PSY) Medications Administered Aspirin (Aspirin 81 Mg Ectab) 81 mg PO QAM [facility] Stop: 03/21/23 08:59 Last Admin: 02/23/23 09:40 Dose: 81 mg Documented By: Admin: 02/22/23 09:38 Dose: 81 mg Documented By: Admin: 02/21/23 09:45 Dose: 81 mg Documented By: Admin: 02/20/23 08:27 Dose: 81 mg Documented By: Admin: 02/19/23 08:07 Dose: 81 mg Documented By: PETER Cephalexin HCl (Cephalexin 500 Mg Cap) 500 mg PO QID [facility]; Protocol Stop: 02/26/23 23:55 Last Admin: 02/23/23 13:06 Dose: 500 mg Documented By: Admin: 02/23/23 09:40 Dose: 500 mg Documented By: Admin: 02/22/23 21:52 Dose: 500 mg Documented By: Admin: 02/22/23 17:20 Dose: 500 mg Documented By: Admin: 02/22/23 12:25 Dose: 500 mg Documented By: Admin: 02/22/23 09:38 Dose: 500 mg Documented By: Admin: 02/21/23 20:26 Dose: 500 mg Documented By: DAVID Doxazosin Mesylate (Doxazosin Mesylate 1 Mg Tab) 1 mg PO QPM STEPHANIE Stop: 03/21/23 20:59 Last Admin: 02/22/23 21:53 Dose: 1 mg Documented By: Admin: 02/21/23 20:27 Dose: 1 mg Documented By: Admin: 02/20/23 20:53 Dose: 1 mg Documented By: Admin: 02/19/23 21:20 Dose: 1 mg Documented By: ISABELA Folic Acid (Folic Acid 1 Mg Tab) 1 mg PO BID STEPHANIE Stop: 03/21/23 08:59 Last Admin: 02/23/23 09:41 Dose: 1 mg Documented By: Admin: 02/22/23 21:53 Dose: 1 mg Documented By: Admin: 02/22/23 09:38 Dose: 1 mg Documented By: Admin: 02/21/23 20:27 Dose: 1 mg Documented By: Admin: 02/21/23 09:45 Dose: 1 mg Documented By: Admin: 02/20/23 20:53 Dose: 1 mg Documented By: Admin: 02/20/23 08:24 Dose: 1 mg Documented By: Admin: 02/19/23 21:21 Dose: 1 mg Documented By: Admin: 02/19/23 08:07 Dose: 1 mg Documented By: PETER Furosemide (Furosemide 40 Mg Tab) 40 mg PO 1700 [facility] Stop: 03/21/23 16:59 Last Admin: 02/19/23 17:28 Dose: 40 mg Documented By: PETER Furosemide (Furosemide 20 Mg Tab) 20 mg PO QAM [facility] Stop: 03/25/23 09:59 Last Admin: 02/23/23 10:52 Dose: 20 mg Documented By: ARISTIDES Heparin Sodium/Dextrose (Heparin Sodium/Dextrose) 25,000 units in 500 mls @ 31 mls/hr IV .[id number] STEPHANIE; Protocol Stop: 03/20/23 21:14 Last Titration: 02/23/23 11:43 Dose: Infused Documented By: ARISTIDES Co-signed By: ANTONINA Admin: 02/23/23 11:43 Dose: 1,550 units/hr, 31 mls/hr Documented By: BT Co-signed By: HM Titration: 02/23/23 10:28 Dose: 1,550 units/hr, 31 mls/hr Documented By: BT Co-signed By: HM Titration: 02/23/23 07:17 Dose: 1,350 units/hr, 27 mls/hr Documented By: BT Co-signed By: JRB Admin: 02/22/23 17:23 Dose: 1,350 units/hr, 27 mls/hr Documented By: BT Co-signed By: SDA Titration: 02/22/23 16:37 Dose: Infused Documented By: BT Co-signed By: SDA Titration: 02/22/23 07:24 Dose: 1,350 units/hr, 27 mls/hr Documented By: BT Co-signed By: DAVID Admin: 02/21/23 22:05 Dose: 1,350 units/hr, 27 mls/hr Documented By: DAVID Co-signed By: REINIER Titration: 02/21/23 21:42 Dose: Infused Documented By: DAVID Co-signed By: REINIER Titration: 02/21/23 07:24 Dose: 1,350 units/hr, 27 mls/hr Documented By: MICHAEL Co-signed By: LMM Titration: 02/21/23 07:15 Dose: 1,350 units/hr, 27 mls/hr Documented By: JBH Co-signed By: LMM Admin: 02/21/23 03:10 Dose: 1,350 units/hr, 27 mls/hr Documented By: LMM Co-signed By: DAISY Titration: 02/21/23 03:10 Dose: Infused Documented By: LMM Co-signed By: DAISY Titration: 02/20/23 18:59 Dose: 1,350 units/hr, 27 mls/hr Documented By: WRS Co-signed By: LMM Titration: 02/20/23 15:00 Dose: 1,350 units/hr, 27 mls/hr Documented By: WRS Co-signed By: GENaheed Admin: 02/20/23 08:44 Dose: 1,350 units/hr, 27 mls/hr Documented By: GEG Co-signed By: AM Titration: 02/20/23 08:19 Dose: Infused Documented By: GEG Co-signed By: AM Titration: 02/20/23 07:09 Dose: 1,350 units/hr, 27 mls/hr Documented By: JULES Co-signed By: ISABELA Titration: 02/19/23 18:44 Dose: 1,350 units/hr, 27 mls/hr Documented By: PETER Co-signed By: ISABELA Admin: 02/19/23 13:47 Dose: 1,350 units/hr, 27 mls/hr Documented By: PETER Co-signed By: OO Titration: 02/19/23 13:47 Dose: Infused Documented By: PETER Co-signed By: OO Titration: 02/19/23 07:12 Dose: 1,350 units/hr, 27 mls/hr Documented By: PETER Co-signed By: ISABELA Titration: 02/19/23 06:22 Dose: 1,350 units/hr, 27 mls/hr Documented By: ISABELA Co-signed By: DAISY Titration: 02/19/23 05:21 Dose: 0 units/hr, 0 mls/hr Documented By: ISABELA Co-signed By: VIVIENNE Admin: 02/18/23 21:54 Dose: 1,700 units/hr, 34 mls/hr Documented By: ACC Co-signed By: DoriKP Insulin Aspart (Insulin Aspart Per Unit Charge) 0 units SC ACHS STEPHANIE Stop: 03/20/23 22:59 Last Admin: 02/23/23 13:10 Dose: 5 units Documented By: ARISTIDES Co-signed By: DAWNA Admin: 02/23/23 09:48 Dose: 9 units Documented By: BT Co-signed By: DTT Admin: 02/22/23 21:00 Dose: Not Given Documented By: Admin: 02/22/23 17:20 Dose: Not Given Documented By: Admin: 02/22/23 11:56 Dose: 6 units Documented By: BT Co-signed By: HM Admin: 02/22/23 09:39 Dose: 4 units Documented By: BT Co-signed By: LEELA Admin: 02/21/23 20:27 Dose: Not Given Documented By: Admin: 02/21/23 18:01 Dose: Not Given Documented By: Admin: 02/21/23 12:33 Dose: 4 units Documented By: MICHAEL Co-signed By: AJB Admin: 02/21/23 09:33 Dose: 12 units Documented By: MICHAEL Co-signed By: ANTONINA Admin: 02/20/23 21:10 Dose: Not Given Documented By: Admin: 02/20/23 17:05 Dose: 9 units Documented By: KIMBERLY Co-signed By: CESILIA Admin: 02/20/23 12:29 Dose: 9 units Documented By: JULES Co-signed By: OO Admin: 02/20/23 08:42 Dose: 8 units Documented By: JULES Co-signed By: AM Admin: 02/19/23 21:17 Dose: Not Given Documented By: Admin: 02/19/23 17:29 Dose: Not Given Documented By: Admin: 02/19/23 12:53 Dose: Not Given Documented By: Admin: 02/19/23 08:11 Dose: Not Given Documented By: Admin: 02/18/23 23:41 Dose: Not Given Documented By: LMM Insulin Glargine (Lantus Per Unit Charge) 0 units SC DAILY STEPHANIE; Protocol Stop: 03/23/23 08:59 Last Admin: 02/23/23 09:49 Dose: 10 units Documented By: ARISTIDES Co-signed By: DAWNA Admin: 02/22/23 09:45 Dose: 10 units Documented By: ARISTIDES Co-signed By: LEELA Admin: 02/21/23 09:41 Dose: 15 units Documented By: MICHAEL Co-signed By: ANTONINA Metoprolol Tartrate (Metoprolol Tartrate 25 Mg Tab) 12.5 mg PO BID STEPHANIE Stop: 03/23/23 08:59 Last Admin: 02/23/23 09:41 Dose: 12.5 mg Documented By: Admin: 02/22/23 21:53 Dose: 12.5 mg Documented By: Admin: 02/22/23 09:38 Dose: 12.5 mg Documented By: Admin: 02/21/23 20:26 Dose: 12.5 mg Documented By: Admin: 02/21/23 09:46 Dose: 12.5 mg Documented By: MICHAEL Pantoprazole Sodium (Pantoprazole 40 Mg Tab) 40 mg PO DAILY STEPHANIE Stop: 03/21/23 08:59 Last Admin: 02/23/23 09:41 Dose: 40 mg Documented By: Admin: 02/22/23 09:38 Dose: 40 mg Documented By: Admin: 02/21/23 09:44 Dose: 40 mg Documented By: Admin: 02/20/23 08:23 Dose: 40 mg Documented By: Admin: 02/19/23 08:07 Dose: 40 mg Documented By: PETER Rosuvastatin Calcium (Rosuvastatin Calcium 20 Mg Tab) 20 mg PO QPM STEPHANIE Stop: 03/21/23 20:59 Last Admin: 02/22/23 21:52 Dose: 20 mg Documented By: Admin: 02/21/23 20:27 Dose: 20 mg Documented By: Admin: 02/20/23 20:54 Dose: 20 mg Documented By: Admin: 02/19/23 21:22 Dose: 20 mg Documented By: ISABELA Vitamin D (Cholecalciferol 1,000 Units 25 Mcg Tab) 2,000 units PO DAILY STEPHANIE Stop: 03/21/23 08:59 Last Admin: 02/23/23 09:41 Dose: 2,000 units Documented By: Admin: 02/22/23 09:38 Dose: 2,000 units Documented By: Admin: 02/21/23 09:45 Dose: 2,000 units Documented By: Admin: 02/20/23 08:24 Dose: 2,000 units Documented By: Admin: 02/19/23 08:07 Dose: 2,000 units Documented By: PETER Coding Level of Care Code 34779 [facility] Intl Hosp Care Lvl 3 Diagnoses Encounter for assessment of healthcare decision-making capacity Z02.79 Time Spent (min) 82
[2023-02-23 17:23] LABS: ANTI-Xa, UFH(UnfractionatedHep 0.73 IU/ml (0.3-0.7)
[2023-02-23] MEDS: DOXAZOSIN MESYLATE 1 MG TAB PO SCH (20:00)
[2023-02-23] MEDS: ROSUVASTATIN CALCIUM 20 MG TAB PO SCH (20:01)
--- NOTE | 2023-02-23 20:59 | Hospitalist Progress Note ---
Date of Service February 23, 2023 Assessment & Plan (1) DVT (deep venous thrombosis): Plan: Nearly occlusive DVT left lower extremity. Etiology?? Immobility? occult malignancy? Other? Remains on heparin drip. warfarin 10 mg ordered for 02/19, 02/20, 02/21, 02/22. INR 1.9 today. give 7.5mg x 1 of coumadin today. repeat INR am. No clinical signs/symptoms of PE. 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 be on Tikosyn but this was stopped because he was having too much ventricular ectopy cont heparin/warfarin cont metoprolol 12.5mg BID - rates acceptable with such (4) CAD (coronary artery disease): Plan: s/p stents in the past Cont metoprolol Cont aspirin, rosuvastatin (5) Urinary tract infection: Plan: 2nd GBS remains on keflex no symptoms day #6 abx (6) Obstructive sleep apnea: Plan: cont CPAP (7) Diabetes: Plan: Hba1c 7.2% pharmacy providing glycemic oversight cont basal-bolus insulin (8) Self-care deficit: Plan: progressive over 6-12 months outpatient providers have noted cognitive decline early dementia process? TSH wnl B12 wnl B1 level pending consider imaging of brain (MRI) will need neuropsych testing post-d/c with neurology if possible office of aging has requested formal capacity assessment psych consult requested to help with such (9) Morbid obesity with BMI of 40.0-44.9, adult: Plan: BMI 43 (10) Cognitive impairment: Plan: see above Plan will need placement cannot live alone PT, OT abdominal pain - none on exam today, but has been having such for a few months? has had weight loss? will check CT a/p with contrast - r/o occult malignancy - especially in light of "unprovoked" DVT Admission and Anticipated Discharge Date Admission Date: February 18, 2023 Subjective no events overnight he reports he had had several months of abd pain following meals but it "went away with whatever you are doing" denies any nausea denies any vomiting last BM - 3 days ago? Review of Systems Review of Systems: cv - no chest pain pulm - no dyspnea GI - see HPI Physical Exam Physical Exam: gen - NAD, obese, laying in bed flat comfortably neck - no obvious JVD mouth - MMM heart - irregularly irregular, s1 s2, no murmur lungs - CTA b/l abd - soft NT ND BS+ ext - RLE edema <1+; LLE edema 2+ (left calf is much larger than right calf) skin - no cellulitis left leg; stasis changes b/l legs Results & Data Results & Data Vital Signs (Past 12 Hours) Vital Signs Temp Pulse Pulse Resp BP BP Pulse Ox 02/23/23 19:00 36.6 C 82 22 135/79 96 02/23/23 16:07 77 02/23/23 15:04 35.8 C L 82 18 132/68 95 02/23/23 11:12 36.3 C L 82 17 104/69 95 O2 Del Method 02/23/23 19:00 Room Air 02/23/23 16:07 02/23/23 15:04 Room Air 02/23/23 11:12 Room Air Laboratory Results Laboratory Results - last 48 hr 02/22/23 02/22/23 02/22/23 11:33 16:27 20:27 PT INR Heparin Anti-Xa, Unfract Sodium Potassium Chloride Carbon Dioxide Anion Gap BUN Creatinine Est Cr Clr Drug Dosing Est GFR ( Amer) Est GFR (Non-Af Amer) BUN/Creatinine Ratio Glucose POC Glucose 147 H 103 H 134 H Calcium 02/23/23 02/23/23 02/23/23 07:22 08:10 08:23 PT 19.8 H INR 1.9 H Heparin Anti-Xa, Unfract 0.10 L Sodium 138 Potassium 3.8 Chloride 104 Carbon Dioxide 26 Anion Gap 8 BUN 9 Creatinine 0.73 Est Cr Clr Drug Dosing 117.7 Est GFR ( Amer) 106.7 Est GFR (Non-Af Amer) 92.0 BUN/Creatinine Ratio 12.3 Glucose 148 H POC Glucose 128 H Calcium 8.9 02/23/23 02/23/23 02/23/23 11:04 16:15 16:22 PT INR Heparin Anti-Xa, Unfract 0.73 H* Sodium Potassium Chloride Carbon Dioxide Anion Gap BUN Creatinine Est Cr Clr Drug Dosing Est GFR ( Amer) Est GFR (Non-Af Amer) BUN/Creatinine Ratio Glucose POC Glucose 184 H 117 H Calcium PG Care Time/CCT Total # of Minutes Spent Total Time Spent with Patient: Total time spent is greater than 50% in coordination of care (as documented) at patient's floor/unit and/or counseling patient: Coding Level of Care Code 38271 SUB INP/OBS CARE 2/35MIN Diagnoses DVT (deep venous thrombosis) I82.409 Affected thrombotic vein of extremity: unspecified vein of extremity Chronicity: acute DVT location: lower extremity Laterality: unspecified laterality Cellulitis of lower extremity L03.119 Persistent atrial fibrillation I48.1 CAD (coronary artery disease) I25.10 Urinary tract infection N39.0 Obstructive sleep apnea G47.33 Diabetes E11.9 Self-care deficit Z78.9 Morbid obesity with BMI of 40.0-44.9, adult E66.01; Z68.41 Cognitive impairment R41.89 (1) DVT (deep venous thrombosis) Affected thrombotic vein of extremity: unspecified vein of extremity Chronicity: acute DVT location: lower extremity Laterality: unspecified laterality Qualified Code(s): I82.409 - Acute embolism and thrombosis of unspecified deep veins of unspecified lower extremity
[2023-02-23] MEDS: MELATONIN 3 MG TAB PO SCH (23:08)
[2023-02-23 23:59] LABS: ANTI-Xa, UFH(UnfractionatedHep 0.51 IU/ml (0.3-0.7)
[2023-02-24] MEDS: HEPARIN SODIUM/DEXTROSE 25,000 UNITS/500 ML BAG IV SCH ×5 (04:46→21:01)
[2023-02-24 06:53] LABS: Prothrombin Time 20.8 Seconds (9.0-12.0)
[2023-02-24] MEDS: INSULIN ASPART PER UNIT CHARGE SC SCH ×4 (08:41→20:51)
[2023-02-24] MEDS: METOPROLOL TARTRATE 25 MG TAB PO SCH ×2 (08:42→20:02)
[2023-02-24] MEDS: ASPIRIN 81 MG ECTAB PO SCH (08:42)
[2023-02-24] MEDS: PANTOprazole 40 MG TAB PO SCH (08:42)
[2023-02-24] MEDS: FUROSEMIDE 20 MG TAB PO SCH (08:42)
[2023-02-24] MEDS: FOLIC ACID 1 MG TAB PO SCH ×2 (08:42→20:02)
[2023-02-24] MEDS: CHOLECALCIFEROL 1,000 UNITS 25 MCG TAB PO SCH (08:42)
[2023-02-24] MEDS: cephALEXin 500 MG CAP PO SCH ×4 (08:43→20:02)
[2023-02-24] MEDS: LANTUS PER UNIT CHARGE SC SCH (08:43)
[2023-02-24] MEDS ORDERED: WARFARIN SOD 10 MG TAB PO ONE (09:18)
[2023-02-24] MEDS ORDERED: OPTIRAY 320 500ml IV ONE (11:35)
[2023-02-24] MEDS: POLYETHYLENE (MIRALAX) 17 GM PACK PO SCH (11:57)
[2023-02-24] MEDS: SENNA 8.6 MG TAB PO SCH (11:58)
--- NOTE | 2023-02-24 13:36 | CT Scan Report ---
CT abd pelvis IV con only CLINICAL HISTORY: unprovoked DVT, weight loss, abd pain TECHNIQUE: Helical axial images of the abdomen and pelvis were obtained and displayed. Automated dose lowering techniques and/or adjustment according to patient size were utilized for this exam. This e xam was performed with intravenous contrast. CT DOSE: 1437.03 mGy.cm COMPARISON: Comparison is made to CT abdomen pelvis 10/04/2021 FINDINGS: Lower chest: No acute abnormality. Liver: Hepatic steatosis is noted. Gallbladder and biliary tree: Patient is status post cholecystectomy. Physiologic prominence of the b iliary ducts is noted. Pancreas: Unremarkable, no focal lesions. Spleen: Unremarkable. Adrenals: Unremarkable. Kidneys and ureters: Unremarkable. Bladder: Unremarkable. Reproductive organs: Unremarkable. Bowel: Diverticulosis is seen without diverticulitis. The appendix is normal. Soft tissue density in the distal rectum likely represents the anal sphincter. Lymph nodes Retroperitoneal: Unremarkable. Pelvic: Unremarkable. Mesenteric: Unremarkable. Peritoneum: Normal. Vessels: Atherosclerotic calcifications are seen. Abdominal wall: Unremarkable. Bones: Degenerative changes in the visualized spine. Total right hip arthroplasty is seen. IMPRESSION: 1. No acute abnormality and in particular no mass lesion to suggest malignancy. 2. Hepatic steatosis. 3. Diverticulosis without diverticulitis. ACT 112: Negative or not required by law. Electronically signed by: Eric Chavez M.D. 02/24/2023 1:35 PM
[2023-02-24] MEDS: MELATONIN 3 MG TAB PO SCH (20:02)
[2023-02-24] MEDS: DOXAZOSIN MESYLATE 1 MG TAB PO SCH (20:02)
[2023-02-24] MEDS: ROSUVASTATIN CALCIUM 20 MG TAB PO SCH (20:02)
--- NOTE | 2023-02-24 20:04 | Hospitalist Progress Note ---
Date of Service February 24, 2023 Assessment & Plan (1) DVT (deep venous thrombosis): Plan: Nearly occlusive DVT left lower extremity. Etiology?? Immobility? occult malignancy? Other? CT a/p today w/o obvious malignancy. Urine cytology pending. Consider CT chest. Remains on heparin drip. warfarin 10 mg ordered for 02/19, 02/20, 02/21, 02/22. 7.5mg on 02/23. INR 2 today. give 10mg x 1 of coumadin today. repeat INR am. No clinical signs/symptoms of PE. 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 Tikosyn but this was stopped because he was having too much ventricular ectopy cont heparin/warfarin cont metoprolol 12.5mg BID - rates acceptable with such (4) CAD (coronary artery disease): Plan: s/p stents in the past Cont metoprolol Cont aspirin, rosuvastatin (5) Urinary tract infection: Plan: 2nd GBS remains on keflex no symptoms day #7 abx (6) Obstructive sleep apnea: Plan: cont CPAP (7) Diabetes: Plan: Hba1c 7.2% pharmacy providing glycemic oversight cont basal-bolus insulin control acceptable (8) Self-care deficit: Plan: progressive over 6-12 months outpatient providers have noted cognitive decline early dementia process? TSH wnl B12 wnl B1 level still pending consider imaging of brain (MRI) will need neuropsych testing post-d/c with neurology if possible office of aging has requested formal capacity assessment psych consult requested to help with such and feels he still retains capacity to make his own decisions including medical decisions (9) Morbid obesity with BMI of 40.0-44.9, adult: Plan: BMI 41 (10) Cognitive impairment: Plan: see above Plan will need placement cannot live alone cont PT, OT abdominal pain - none on exam today, but has been having such for a few months? has had weight loss? checked CT a/p with contrast - no signs of malignancy seen - especially in light of "unprovoked" DVT ordered urine cytology consider CT chest attempted to call pt's daughter, Tricia, who lives in [place] [phone] left voicemail will try to call again on 02/25/23 Admission and Anticipated Discharge Date Admission Date: February 18, 2023 Subjective no events overnight resting in bed comfortably during the visit no new complaints was irritated today - talking about politics and the legal system and how frustrated he is with all of it eating/drinking fine Review of Systems Review of Systems: cv - no cp, no orthopnea pulm - no dyspnea GI - no abd pain/nausea/emesis Physical Exam Physical Exam: gen - NAD, obese, laying in bed flat comfortably, a little agitated today neck - no obvious JVD mouth - MMM heart - irregularly irregular, s1 s2, no murmur lungs - CTA b/l abd - soft NT ND BS+ ext - RLE edema 1-2+; LLE edema 2+ (left calf is much larger than right calf) skin - no cellulitis left leg; stasis changes b/l legs Results & Data Results & Data Vital Signs (Past 12 Hours) Vital Signs Temp Pulse Pulse Resp BP BP Pulse Ox 02/24/23 19:56 36.4 C L 75 18 107/70 95 02/24/23 17:31 78 02/24/23 15:27 36.3 C L 78 20 114/73 95 02/24/23 12:38 36.3 C L 75 20 100/68 96 02/24/23 09:00 74 02/24/23 09:00 02/24/23 08:14 36.5 C 80 20 126/74 93 O2 Del Method 02/24/23 19:56 Room Air 02/24/23 17:31 02/24/23 15:27 Room Air 02/24/23 12:38 Room Air 02/24/23 09:00 02/24/23 09:00 Room Air 02/24/23 08:14 Room Air Laboratory Results Laboratory Results - last 24 hr 02/23/23 02/23/23 02/24/23 20:39 23:24 05:41 PT 20.8 H INR 2.0 H Heparin Anti-Xa, Unfract 0.51 POC Glucose 105 H 02/24/23 02/24/23 02/24/23 07:13 12:05 16:20 PT INR Heparin Anti-Xa, Unfract POC Glucose 137 H 167 H 120 H Diagnostic Findings Abdomen/Pelvis CT 02/24/23 09:20 CT abd pelvis IV con only CLINICAL HISTORY: unprovoked DVT, weight loss, abd pain TECHNIQUE: Helical axial images of the abdomen and pelvis were obtained and displayed. Automated dose lowering techniques and/or adjustment according to patient size were utilized for this exam. This exam was performed with intravenous contrast. CT DOSE: 1437.03 mGy.cm COMPARISON: Comparison is made to CT abdomen pelvis 10/04/2021 FINDINGS: Lower chest: No acute abnormality. Liver: Hepatic steatosis is noted. Gallbladder and biliary tree: Patient is status post cholecystectomy. Physiologic prominence of the biliary ducts is noted. Pancreas: Unremarkable, no focal lesions. Spleen: Unremarkable. Adrenals: Unremarkable. Kidneys and ureters: Unremarkable. Bladder: Unremarkable. Reproductive organs: Unremarkable. Bowel: Diverticulosis is seen without diverticulitis. The appendix is normal. Soft tissue density in the distal rectum likely represents the anal sphincter. Lymph nodes Retroperitoneal: Unremarkable. Pelvic: Unremarkable. Mesenteric: Unremarkable. Peritoneum: Normal. Vessels: Atherosclerotic calcifications are seen. Abdominal wall: Unremarkable. Bones: Degenerative changes in the visualized spine. Total right hip arthroplasty is seen. IMPRESSION: 1. No acute abnormality and in particular no mass lesion to suggest malignancy. 2. Hepatic steatosis. 3. Diverticulosis without diverticulitis. ACT 112: Negative or not required by law. Electronically signed by: Eric Chavez M.D. 02/24/2023 1:35 PM PG Care Time/CCT Total # of Minutes Spent Total Time Spent with Patient: Total time spent is greater than 50% in coordination of care (as documented) at patient's floor/unit and/or counseling patient: Coding Level of Care Code 53601 SUB INP/OBS CARE 2/35MIN Diagnoses DVT (deep venous thrombosis) I82.409 Affected thrombotic vein of extremity: unspecified vein of extremity Chronicity: acute DVT location: lower extremity Laterality: unspecified laterality Cellulitis of lower extremity L03.119 Persistent atrial fibrillation I48.1 CAD (coronary artery disease) I25.10 Urinary tract infection N39.0 Obstructive sleep apnea G47.33 Diabetes E11.9 Self-care deficit Z78.9 Morbid obesity with BMI of 40.0-44.9, adult E66.01; Z68.41 Cognitive impairment R41.89 (1) DVT (deep venous thrombosis) Affected thrombotic vein of extremity: unspecified vein of extremity Chr onicity: acute DVT location: lower extremity Laterality: unspecified lateral ity Qualified Code(s): I82.409 - Acute embolism and thrombosis of unspecified deep veins of unspecified lower extremity
[2023-02-24] MEDS: MICONAZOLE NITRATE POWDER 85 GM EXT SCH (20:59)
[2023-02-25] MEDS: METOPROLOL TARTRATE 25 MG TAB PO SCH ×2 (06:21→21:12)
[2023-02-25 07:45] LABS: BUN Creatinine Ratio 11.8 (10-20); Calcium 8.7 mg/dl (8.6-10.3); Creatinine Clr Calc Pharmacy 110.7 ml/min; Est GFR (African American) 104.9 ml/min; Est GFR (Non-African American) 90.5 ml/min; Potassium 3.7 mmol/L (3.5-5.1)
[2023-02-25 07:52] LABS: Hematocrit (blood only) 45.2 % (42.0-52.0); Hemoglobin 15.8 g/dl (14.0-18.0); Mean Corpuscular Hemoglobin 30.9 pg (25.0-34.0); Mean Corpuscular Volume 88.5 fL (80.0-100.0); Mean Platelet Volume 10.8 fL (9.4-12.4); Platelet Count 285 K/uL (130-400); RDW Coefficient of Variation 13.1 % (11.5-14.5); RDW Standard Deviation 42.4 fL (36.4-46.3); Red Blood Count 5.11 M/uL (4.70-6.10); White Blood Count 9.72 K/ul (4.8-10.8)
[2023-02-25 08:03] LABS: ANTI-Xa, UFH(UnfractionatedHep 0.63 IU/ml (0.3-0.7); INR 2.2 (0.9-1.1); Prothrombin Time 23.2 Seconds (9.0-12.0)
[2023-02-25] MEDS: INSULIN ASPART PER UNIT CHARGE SC SCH ×4 (08:54→20:57)
[2023-02-25] MEDS: ASPIRIN 81 MG ECTAB PO SCH (08:56)
[2023-02-25] MEDS: CHOLECALCIFEROL 1,000 UNITS 25 MCG TAB PO SCH (08:56)
[2023-02-25] MEDS: PANTOprazole 40 MG TAB PO SCH (08:57)
[2023-02-25] MEDS: FOLIC ACID 1 MG TAB PO SCH ×2 (08:57→21:12)
[2023-02-25] MEDS: SENNA 8.6 MG TAB PO SCH (08:57)
[2023-02-25] MEDS: MICONAZOLE NITRATE POWDER 85 GM EXT SCH ×3 (08:58→21:14)
[2023-02-25] MEDS: LANTUS PER UNIT CHARGE SC SCH (08:58)
[2023-02-25] MEDS: POLYETHYLENE (MIRALAX) 17 GM PACK PO SCH (08:58)
[2023-02-25] MEDS: FUROSEMIDE 40 MG TAB PO SCH (09:11)
[2023-02-25] MEDS: HEPARIN SODIUM/DEXTROSE 25,000 UNITS/500 ML BAG IV SCH (13:55)
[2023-02-25] MEDS: WARFARIN SOD 10 MG TAB PO SCH (16:38)
--- NOTE | 2023-02-25 19:29 | Hospitalist Progress Note ---
Date of Service February 25, 2023 Assessment & Plan (1) DVT (deep venous thrombosis): Plan: Nearly occlusive DVT left lower extremity. Etiology?? Immobility? occult malignancy? Other? CT a/p w/o obvious malignancy. Urine cytology pending. Consider CT chest as he is a prior heavy smoker according to his daughter. Remains on heparin drip. warfarin 10 mg ordered for 02/19, 02/20, 02/21, 02/22, 02/24. 7.5mg on 02/23. will give 10mg today. repeat INR am. No clinical signs/symptoms of PE but again consider chest CT. 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 Tikosyn but this was stopped because he was having too much ventricular ectopy cont heparin/warfarin cont metoprolol 12.5mg BID has episodes of PAF - some rapid - but they are brief and he has no symptoms from such (4) CAD (coronary artery disease): Plan: s/p stents in the past Cont metoprolol Cont aspirin, rosuvastatin (5) Urinary tract infection: Plan: 2nd GBS s/p 7 day course of abx resolved clinically (6) Obstructive sleep apnea: Plan: cont CPAP (7) Diabetes: Plan: Hba1c 7.2% pharmacy providing glycemic oversight cont basal-bolus insulin control acceptable (8) Self-care deficit: Plan: progressive over 6-12 months outpatient providers have noted cognitive decline early dementia process? TSH wnl B12 wnl B1 level still pending consider imaging of brain (MRI) will need neuropsych testing post-d/c with neurology if possible office of aging has requested formal capacity assessment psych consult requested to help with such and feels he still retains capacity to make his own decisions including medical decisions (9) Morbid obesity with BMI of 40.0-44.9, adult: Plan: BMI 41 (10) Cognitive impairment: Plan: see above could he have underlying depression contributing to cognitive issues as well? Plan cont PT, OT abdominal pain - patient reports he had been having such for a few months but CT a/p negative consider outpatient EGD/colonoscopy in light of "unprovoked" DVT consider CT chest spoke with pt's daughter, Tricia, who lives in [place] [phone] 20 minute discussion held by phone about her father's current problems, plan for SNF rehab post-discharge, etc she voices concerns about him living alone after rehab I share her concerns ideal situation would be assisted living but uncertain he would be agreeable to that following his acute rehab either way he will go to SNF post-discharge for rehab and this will give us time to figure out the longer term plan can d/c tele move to med/surg Admission and Anticipated Discharge Date Admission Date: February 18, 2023 Subjective tele overnight - 1 minute episode of rapid a.fib while patient was in bed no symptoms otherwise NSR no other dysrhythmia eating well no new complaints no new issues Review of Systems Review of Systems: cv - no chest pain, no orthopnea pulm - no dyspnea GI - no abd pain/nausea/emesis Physical Exam Physical Exam: gen - NAD, obese, laying in bed flat comfortably; watching TV neck - no obvious JVD mouth - MMM heart - RRR, rate <100, s1 s2, no murmur lungs - CTA b/l abd - soft NT ND BS+ ext - RLE edema 1+; LLE edema 1-2+ (left calf is larger than right calf) skin - no cellulitis left leg; stasis changes b/l legs worse on left due to recent DVT psych - awake, alert, oriented to person/place Results & Data Results & Data Vital Signs (Past 12 Hours) Vital Signs Temp Pulse Pulse Resp BP Pulse Ox O2 Del Method 02/25/23 14:23 36.5 C 74 16 102/63 96 Room Air 02/25/23 14:00 Room Air 02/25/23 13:26 36.5 C 70 16 116/70 97 Room Air 02/25/23 12:02 36.5 C 84 20 105/66 94 Room Air 02/25/23 07:59 36.3 C L 81 20 145/87 H 95 Room Air 02/25/23 07:37 90 Laboratory Results Laboratory Results - last 24 hr 02/24/23 02/25/23 02/25/23 20:05 06:29 07:23 WBC 9.72 RBC 5.11 Hgb 15.8 Hct 45.2 MCV 88.5 MCH 30.9 MCHC 35.0 RDW Std Deviation 42.4 RDW Coeff of [place] 13.1 Plt Count 285 MPV 10.8 PT 23.2 H INR 2.2 H Heparin Anti-Xa, Unfract 0.63 Sodium 136 Potassium 3.7 Chloride 104 Carbon Dioxide 23 Anion Gap 9 BUN 9 Creatinine 0.76 Est Cr Clr Drug Dosing 110.7 Est GFR ( Amer) 104.9 Est GFR (Non-Af Amer) 90.5 BUN/Creatinine Ratio 11.8 Glucose 114 H POC Glucose 100 H 130 H Calcium 8.7 02/25/23 02/25/23 11:30 16:47 WBC RBC Hgb Hct MCV MCH MCHC RDW Std Deviation RDW Coeff of [place] Plt Count MPV PT INR Heparin Anti-Xa, Unfract Sodium Potassium Chloride Carbon Dioxide Anion Gap BUN Creatinine Est Cr Clr Drug Dosing Est GFR ( Amer) Est GFR (Non-Af Amer) BUN/Creatinine Ratio Glucose POC Glucose 151 H 94 Calcium PG Care Time/CCT Total # of Minutes Spent Total Time Spent with Patient: Total time spent is greater than 50% in coordination of care (as documented) at patient's floor/unit and/or counseling patient: Coding Level of Care Code 89869 SUB INP/OBS CARE 3/50MIN Diagnoses DVT (deep venous thrombosis) I82.409 Affected thrombotic vein of extremity: unspecified vein of extremity Chronicity: acute DVT location: lower extremity Laterality: unspecified laterality Cellulitis of lower extremity L03.119 Persistent atrial fibrillation I48.1 CAD (coronary artery disease) I25.10 Urinary tract infection N39.0 Obstructive sleep apnea G47.33 Diabetes E11.9 Self-care deficit Z78.9 Morbid obesity with BMI of 40.0-44.9, adult E66.01; Z68.41 Cognitive impairment R41.89 (1) DVT (deep venous thrombosis) Affected thrombotic vein of extremity: unspecified vein of extremity Chronicity: acute DVT location: lower extremity Laterality: unspecified laterality Qualified Code(s): I82.409 - Acute embolism and thrombosis of unspecified deep veins of unspecified lower extremity
[2023-02-25] MEDS: ROSUVASTATIN CALCIUM 20 MG TAB PO SCH (21:12)
[2023-02-25] MEDS: MELATONIN 3 MG TAB PO SCH (21:12)
[2023-02-25] MEDS: DOXAZOSIN MESYLATE 1 MG TAB PO SCH (21:13)
[2023-02-26 06:14] LABS: BUN Creatinine Ratio 11.8 (10-20); Calcium 8.9 mg/dl (8.6-10.3); Est GFR (African American) 100.2 ml/min; Est GFR (Non-African American) 86.4 ml/min; Potassium 3.8 mmol/L (3.5-5.1)
[2023-02-26] MEDS: HEPARIN SODIUM/DEXTROSE 25,000 UNITS/500 ML BAG IV SCH (06:24)
[2023-02-26 06:31] LABS: INR 2.4 (0.9-1.1); Prothrombin Time 24.5 Seconds (9.0-12.0)
[2023-02-26 06:46] LABS: Partial Thromboplastin Ratio > 4.9
[2023-02-26 06:49] LABS: Partial Thromboplastin Time > 139 Seconds (21-31)
[2023-02-26] MEDS: ASPIRIN 81 MG ECTAB PO SCH (08:41)
[2023-02-26] MEDS: CHOLECALCIFEROL 1,000 UNITS 25 MCG TAB PO SCH (08:41)
[2023-02-26] MEDS: FUROSEMIDE 40 MG TAB PO SCH (08:41)
[2023-02-26] MEDS: METOPROLOL TARTRATE 25 MG TAB PO SCH ×2 (08:42→20:11)
[2023-02-26] MEDS: FOLIC ACID 1 MG TAB PO SCH ×2 (08:42→20:11)
[2023-02-26] MEDS: SENNA 8.6 MG TAB PO SCH (08:43)
[2023-02-26] MEDS: PANTOprazole 40 MG TAB PO SCH (08:43)
[2023-02-26] MEDS: MICONAZOLE NITRATE POWDER 85 GM EXT SCH ×3 (08:43→20:12)
[2023-02-26] MEDS: POLYETHYLENE (MIRALAX) 17 GM PACK PO SCH (08:46)
[2023-02-26] MEDS: INSULIN ASPART PER UNIT CHARGE SC SCH ×4 (08:51→20:47)
[2023-02-26] MEDS: LANTUS PER UNIT CHARGE SC SCH (08:51)
[2023-02-26] MEDS: WARFARIN SOD 10 MG TAB PO SCH (16:48)
--- NOTE | 2023-02-26 20:07 | Hospitalist Progress Note ---
Date of Service February 26, 2023 Assessment & Plan (1) DVT (deep venous thrombosis): Plan: Nearly occlusive DVT left lower extremity. Etiology?? Immobility? occult malignancy? Other? CT a/p w/o obvious malignancy. Urine cytology pending. Consider CT chest as he is a prior heavy smoker according to his daughter and he is dyspneic with activity. heparin drip has been stopped. warfarin 10 mg ordered for 02/19, 02/20, 02/21, 02/22, 02/24, 02/25. 7.5mg on 02/23. moving forward will use coumadin 10mg/day. INR daily. (2) Cellulitis of lower extremity: Plan: resolved clinically previously on rocephin - now on keflex PO completed 7 days of Rx in total - off all abx (3) Persistent atrial fibrillation: Plan: his outpatient professor of geography states that he used to be on Tikosyn but this was stopped because he was having too much ventricular ectopy cont heparin/warfarin cont metoprolol 12.5mg BID has episodes of PAF - some rapid - but they are brief and he has no symptoms from such (4) CAD (coronary artery disease): Plan: s/p stents in the past Cont metoprolol Cont aspirin, rosuvastatin (5) Urinary tract infection: Plan: 2nd group B strep s/p 7 day course of abx resolved (6) Obstructive sleep apnea: Plan: cont CPAP (7) Diabetes: Plan: Hba1c 7.2% pharmacy providing glycemic oversight cont basal-bolus insulin control acceptable (8) Self-care deficit: Plan: progressive over 6-12 months outpatient providers have noted cognitive decline early dementia process? TSH wnl B12 wnl B1 level wnl consider imaging of brain (MRI) will need neuropsych testing post-d/c with neurology if possible office of aging has requested formal capacity assessment psych consult requested to help with such and feels he still retains capacity to make his own decisions including medical decisions (9) Morbid obesity with BMI of 40.0-44.9, adult: Plan: BMI 41 (10) Cognitive impairment: Plan: see above could he have underlying depression contributing to cognitive issues as well? Plan cont PT, OT abdominal pain - patient reports he had been having such for a few months but CT a/p negative consider outpatient EGD/colonoscopy spoke with pt's daughter, Tricia, who lives in [place] -- 02/25/23 20 minute discussion held by phone about her father's current problems, plan for SNF rehab post-discharge, etc she voices concerns about him living alone after rehab I share her concerns ideal situation would be assisted living but uncertain he would be agreeable to that following his acute rehab either way he will go to SNF post-discharge for rehab and this will give us time to figure out the longer term plan likely d/c to SNF after [place] Admission and Anticipated Discharge Date Admission Date: February 18, 2023 Subjective no issues overnight was sleeping upon my arrival awoke easily denies any complaints I did notice during the visit that when he sat up in bed he got immediately dyspneic he asks when he will be going to rehab Review of Systems 2 Review of Systems: gen - "best I have felt in a long time" cv - no orthopnea, no chest pain pulm - no cough GI - no abd pain/nausea/emesis musculo - ongoing LLE edema Physical Exam Physical Exam: gen - NAD, obese neck - no obvious JVD mouth - MMM heart - RRR, rate <100, s1 s2, no murmur lungs - CTA b/l; got dyspneic, however, with moving in the bed abd - soft NT ND BS+ ext - RLE edema 1+; LLE edema 1-2+ skin - no cellulitis left leg; stasis changes b/l legs worse on left due to recent DVT; no warmth either haque Results & Data Results & Data Vital Signs (Past 12 Hours) Vital Signs Temp Pulse Resp BP Pulse Ox O2 Del Method 02/26/23 14:26 36.4 C L 81 16 131/72 96 Room Air 02/26/23 09:20 Room Air 02/26/23 08:40 94 H 100/64 Laboratory Results Laboratory Results - last 24 hr 02/20/23 02/25/23 02/26/23 06:35 20:43 05:24 PT 24.5 H INR 2.4 H APTT > 139 H* PTT Ratio > 4.9 Heparin Anti-Xa, Unfract 0.60 Sodium 138 Potassium 3.8 Chloride 105 Carbon Dioxide 26 Anion Gap 7 BUN 10 Creatinine 0.85 Est Cr Clr Drug Dosing 99.0 Est GFR ( Amer) 100.2 Est GFR (Non-Af Amer) 86.4 BUN/Creatinine Ratio 11.8 Glucose 121 H POC Glucose 129 H Calcium 8.9 Whole Bld Vitamin B1 128 02/26/23 02/26/23 02/26/23 07:48 11:49 16:36 PT INR APTT PTT Ratio Heparin Anti-Xa, Unfract Sodium Potassium Chloride Carbon Dioxide Anion Gap BUN Creatinine Est Cr Clr Drug Dosing Est GFR ( Amer) Est GFR (Non-Af Amer) BUN/Creatinine Ratio Glucose POC Glucose 135 H 108 H 111 H Calcium Whole Bld Vitamin B1 PG Care Time/CCT Total # of Minutes Spent Total Time Spent with Patient: Total time spent is greater than 50% in coordination of care (as documented) at patient's floor/unit and/or counseling patient: Coding Level of Care Code 35347 SUB INP/OBS CARE 235MIN Diagnoses DVT (deep venous thrombosis) I82.409 Affected thrombotic vein of extremity: unspecified vein of extremity Chronicity: acute DVT location: lower extremity Laterality: unspecified laterality Cellulitis of lower extremity L03.119 Persistent atrial fibrillation I48.1 CAD (coronary artery disease) I25.10 Urinary tract infection N39.0 Obstructive sleep apnea G47.33 Diabetes E11.9 Self-care deficit Z78.9 Morbid obesity with BMI of 40.0-44.9, adult E66.01; Z68.41 Cognitive impairment R41.89 (1) DVT (deep venous thrombosis) Affected thrombotic vein of extremity: unspecified vein of extremity Chronicity: acute DVT location: lower extremity Laterality: unspecified laterality Qualified Code(s): I82.409 - Acute embolism and thrombosis of unspecified deep veins of unspecified lower extremity
[2023-02-26] MEDS: MELATONIN 3 MG TAB PO SCH (20:11)
[2023-02-26] MEDS: DOXAZOSIN MESYLATE 1 MG TAB PO SCH (20:11)
[2023-02-26] MEDS: ROSUVASTATIN CALCIUM 20 MG TAB PO SCH (20:12)
[2023-02-27 06:28] LABS: INR 2.6 (0.9-1.1); Prothrombin Time 27.2 Seconds (9.0-12.0)
[2023-02-27] MEDS: POLYETHYLENE (MIRALAX) 17 GM PACK PO SCH (08:20)
[2023-02-27] MEDS: METOPROLOL TARTRATE 25 MG TAB PO SCH ×2 (08:22→21:32)
[2023-02-27] MEDS: PANTOprazole 40 MG TAB PO SCH (08:23)
[2023-02-27] MEDS: FOLIC ACID 1 MG TAB PO SCH ×2 (08:23→21:31)
[2023-02-27] MEDS: ASPIRIN 81 MG ECTAB PO SCH (08:23)
[2023-02-27] MEDS: SENNA 8.6 MG TAB PO SCH (08:24)
[2023-02-27] MEDS: FUROSEMIDE 40 MG TAB PO SCH (08:24)
[2023-02-27] MEDS: MICONAZOLE NITRATE POWDER 85 GM EXT SCH ×3 (08:25→21:34)
[2023-02-27] MEDS: CHOLECALCIFEROL 1,000 UNITS 25 MCG TAB PO SCH (08:25)
[2023-02-27] MEDS: INSULIN ASPART PER UNIT CHARGE SC SCH ×4 (08:30→21:06)
[2023-02-27] MEDS: LANTUS PER UNIT CHARGE SC SCH (08:30)
[2023-02-27] MEDS ORDERED: OPTIRAY 320 125ml IV ONE (09:05)
--- NOTE | 2023-02-27 10:07 | CT Scan Report ---
CHEST CTA for PULMONARY ARTERIES CT DOSE: 892.94 mGy.cm HISTORY: LLE DVT, dyspnea; eval for pulmonary embolus TECHNIQUE: Multiaxial CT images of the chest were performed following the intravenous administration of contrast to evaluate the pulmonary arteries. 3D/Maximal intensity projection images were also obta ined. Sagittal and coronal reformations were also reviewed. A dose lowering technique was utilized a dhering to the principles of ALARA. COMPARISON STUDY: None. FINDINGS: Normal caliber thoracic aorta with no evidence for a dissection. The majority of the bilate ral lower lobe segmental/subsegmental pulmonary arteries are nondiagnostic due to motion artifact. Th ere is a filling defect seen within the right upper lobe segmental/subsegmental pulmonary artery on i mage 130 consistent with a pulmonary embolus. No evidence for right-sided heart strain. The heart is normal in size. No pleural or pericardial effusions. Limited views the upper abdomen demonstrate norm al liver, spleen, and adrenal glands. Prior cholecystectomy. No mediastinal or hilar lymphadenopathy. Normal esophagus. Moderate to severe coronary artery calcifications. Bilateral total shoulder arthro plasties. No acute fractures identified. There is a trimalleolar artifact results in suboptimal evalu ation of the lungs. The central airways appear patent. No focal lung consolidations to suggest a pneu monia or pulmonary infarct. No evidence for pulmonary edema. No pneumothorax. IMPRESSION: A right upper lobe segmental/subsegmental pulmonary embolus. No evidence for right-sided heart strain . ACT 112: Negative or not required by law. Electronically signed by: Beto Rodriguez M.D. 02/27/2023 10:05 AM
--- NOTE | 2023-02-27 15:01 | Hospitalist Progress Note ---
Date of Service February 27, 2023 Assessment & Plan (1) DVT (deep venous thrombosis): Plan: Left lower extremity nearly occlusive DVT Unclear etiology, highest risk factor is stasis and obesity CTA with RUL segmental and subsegmental PE, no evidence of malignancy CTA/P without evidence of obvious malignancypatient has been transitioned to warfarin INR within goal range today, continue to goal 23. Currently on 10 mg daily. Loading history warfarin 10 mg ordered for 02/19, 02/20, 02/21, 02/22, 02/24, 02/25. 7.5mg on 02/23. Anticipate long-term stability coumadin 10mg/day. 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 states that he used to be on Tikosyn but this was stopped because he was having too much ventricular ectopy cont heparin/warfarin cont metoprolol 12.5mg BID has episodes of PAF - some rapid - but they are brief and he has no symptoms from such (4) CAD (coronary artery disease): Plan: s/p stents in the past Cont metoprolol Cont aspirin, rosuvastatin (5) Urinary tract infection: Plan: 2nd group B strep s/p 7 day course of abx resolved (6) Obstructive sleep apnea: Plan: cont CPAP (7) Diabetes: Plan: Hba1c 7.2% pharmacy providing glycemic oversight cont basal-bolus insulin control acceptable (8) Self-care deficit: Plan: progressive over 6-12 months outpatient providers have noted cognitive decline early dementia process? TSH wnl B12 wnl B1 level wnl will need neuropsych testing post-d/c with neurology if possible office of aging has requested formal capacity assessment Psychiatry evaluated, patient does retain decision-making capacity including medical decisions at this time (9) Morbid obesity with BMI of 40.0-44.9, adult: Plan: BMI 41 (10) Cognitive impairment: Plan: see above Plan spoke with pt's daughter, Tricia, primary contact ideal situation would be assisted living but uncertain he would be agreeable to that following his acute rehab Anticipate SNF postdischarge and ongoing planning, discharge pending unlikely to be placed until after [place] Admission and Anticipated Discharge Date Admission Date: February 18, 2023 Subjective Seen at the bedside. Reports he has had no new symptoms, feels about the same as yesterday. No questions or concerns. He is curious the neck step to getting out of the hospital is awaiting placement otherwise has no acute questions or concerns. Denies fever, chills, sweats, difficulty breathing today. Denies chest pain Physical Exam Physical Exam: General: Oriented to name, place. Nontoxic-appearing HEENT: Atraumatic, normocephalic. Pulm: CTAB A&P. -wheezes, -rales, -rhonchi. Symmetrical chest rise. No increase in work of breathing. No respiratory distress. Cardiac: RRR, -mrg. Radial pulses intact and symmetrical. Abdominal: Nontender, nondistended, soft. BS present. Results & Data Results & Data Vital Signs (Past 12 Hours) Vital Signs Temp Pulse Resp BP Pulse Ox O2 Del Method 02/27/23 14:15 36.5 C 60 18 122/68 96 Room Air 02/27/23 08:12 Room Air 02/27/23 07:26 36.5 C 79 17 139/79 94 Room Air PG Care Time/CCT Total # of Minutes Spent Total Time Spent with Patient: Total time spent is greater than 50% in coordination of care (as documented) at patient's floor/unit and/or counseling patient: Coding Level of Care Code 15526 SUB INP/OBS CARE 2/35MIN Diagnoses DVT (deep venous thrombosis) I82.409 Affected thrombotic vein of extremity: unspecified vein of extremity Chronicity: acute DVT location: lower extremity Laterality: unspecified laterality Cellulitis of lower extremity L03.119 Persistent atrial fibrillation I48.1 CAD (coronary artery disease) I25.10 Urinary tract infection N39.0 Obstructive sleep apnea G47.33 Diabetes E11.9 Self-care deficit Z78.9 Morbid obesity with BMI of 40.0-44.9, adult E66.01; Z68.41 Cognitive impairment R41.89 (1) DVT (deep venous thrombosis) Affected thrombotic vein of extremity: unspecified vein of extremity Chronicity: acute DVT location: lower extremity Laterality: unspecified laterality Qualified Code(s): I82.409 - Acute embolism and thrombosis of unspecified deep veins of unspecified lower extremity
[2023-02-27] MEDS: WARFARIN SOD 10 MG TAB PO SCH (15:36)
[2023-02-27] MEDS: DOXAZOSIN MESYLATE 1 MG TAB PO SCH (21:32)
[2023-02-27] MEDS: ROSUVASTATIN CALCIUM 20 MG TAB PO SCH (21:34)
[2023-02-27] MEDS: MELATONIN 3 MG TAB PO SCH (21:38)
[2023-02-28 07:44] LABS: INR 3.4 (0.9-1.1); Prothrombin Time 34.5 Seconds (9.0-12.0)
--- NOTE | 2023-02-28 07:48 | Hospitalist Progress Note ---
Date of Service February 28, 2023 Assessment & Plan (1) DVT (deep venous thrombosis): Plan: Left lower extremity nearly occlusive DVT Unclear etiology, highest risk factor is stasis and obesity CTA with RUL segmental and subsegmental PE, no evidence of malignancy CTA/P without evidence of obvious malignancypatient has been transitioned to warfarin Continue warfarin adjust dose to INR goal 2.03.0 INR 3.4 on 02/28 has been getting coumadin 10 mg/d. INR 3.4 today (previously 2s). Ordered 7.5 mg for today. May need 7.5mg 2-3x a week and 10 mg other days. 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 outpatient account solutions analyst states that he used to be on Tikosyn but this was stopped because he was having too much ventricular ectopy cont heparin/warfarin cont metoprolol 12.5mg BID has episodes of PAF - some rapid - but they are brief and he has no symptoms (4) CAD (coronary artery disease): Plan: s/p stents in the past Cont metoprolol Cont aspirin, rosuvastatin (5) Urinary tract infection: Plan: 2nd group B strep s/p 7 day course of abx resolved (6) Obstructive sleep apnea: Plan: cont CPAP (7) Diabetes: Plan: Hba1c 7.2% pharmacy providing glycemic oversight cont basal-bolus insulin Reviewed blood glucose 02/28, at goal (8) Self-care deficit: Plan: progressive over 6-12 months outpatient providers have noted cognitive decline early dementia process? TSH wnl B12 wnl B1 level wnl will need neuropsych testing post-d/c with neurology if possible office of aging has requested formal capacity assessment Psychiatry evaluated, patient does retain decision-making capacity including medical decisions at this time (9) Morbid obesity with BMI of 40.0-44.9, adult: Plan: BMI 41 (10) Cognitive impairment: Plan: see above Plan spoke with pt's daughter, Tricia, primary contact ideal situation would be assisted living but uncertain he would be agreeable to that following his acute rehab Anticipate SNF postdischarge and ongoing planning, discharge pending unlikely to be placed until after [place] Admission and Anticipated Discharge Date Admission Date: February 18, 2023 Subjective doing ok. talks about his leg "deformity" not clear to me that he can recall its a blood clot, but was able to tell me that untreated blood clots can go to the chest and be fatal. L leg sweling much improved compared to a week ago. Physical Exam 2 Physical Exam: PHYSICAL EXAMINATION Last 24h vital signs reviewed, see documentation in flowsheet General: comfortable appearing, no distress, lying in bed watching TV HEENT: Normocephalic, atraumatic, pupils round and equal, sclerae anicteric, no conjunctival injection, moist mucus membranes Lungs: Normal respiratory effort. Heart: Deferred Abdomen: Soft, nondistended. Extremities: Warm, dry, well-perfused. Left leg is larger than the right, 1+ left lower extremity edema with mild pitting. Significant improvement compared to 1 week ago when I last examined his leg. Both legs are warm and well- perfused. Venous stasis dermatitis and associated erythema both lower shins unchanged Neuro: Alert and oriented x hospital and basic situation answers to questions continue to be vague and he seems forgetful, not clear that he remembers me from last week Psych: Normal affect and behavior Results & Data Results & Data Vital Signs (Past 12 Hours) Vital Signs Temp Pulse Resp BP BP Pulse Ox O2 Del Method 02/28/23 07:25 36.4 C L 68 17 116/70 94 Room Air 02/27/23 21:19 36.5 C 76 16 123/70 93 Room Air 02/27/23 20:00 Room Air Laboratory Results 02/25/23 06:29 02/26/23 05:24 PG Care Time/CCT Total # of Minutes Spent Total Time Spent with Patient: Total time spent is greater than 50% in coordination of care (as documented) at patient's floor/unit and/or counseling patient: Coding Level of Care Code 89177 SUB INP/OBS CARE 235MIN Diagnoses DVT (deep venous thrombosis) I82.409 Affected thrombotic vein of extremity: unspecified vein of extremity Chronicity: acute DVT location: lower extremity Laterality: unspecified laterality Cellulitis of lower extremity L03.119 Persistent atrial fibrillation I48.1 CAD (coronary artery disease) I25.10 Urinary tract infection N39.0 Obstructive sleep apnea G47.33 Diabetes E11.9 Self-care deficit Z78.9 Morbid obesity with BMI of 40.0-44.9, adult E66.01; Z68.41 Cognitive impairment R41.89 (1) DVT (deep venous thrombosis) Affected thrombotic vein of extremity: unspecified vein of extremity C hronicity: acute DVT location: lower extremity Laterality: unspecified laterality Qualified Code(s): I82.409 - Acute embolism and thrombosis of unspecified deep veins of unspecified lower extremity
[2023-02-28] MEDS: MICONAZOLE NITRATE POWDER 85 GM EXT SCH ×3 (08:14→21:13)
[2023-02-28] MEDS: METOPROLOL TARTRATE 25 MG TAB PO SCH ×2 (08:15→21:11)
[2023-02-28] MEDS: FUROSEMIDE 40 MG TAB PO SCH (08:15)
[2023-02-28] MEDS: CHOLECALCIFEROL 1,000 UNITS 25 MCG TAB PO SCH (08:15)
[2023-02-28] MEDS: ASPIRIN 81 MG ECTAB PO SCH (08:15)
[2023-02-28] MEDS: FOLIC ACID 1 MG TAB PO SCH ×2 (08:15→21:10)
[2023-02-28] MEDS: PANTOprazole 40 MG TAB PO SCH (08:15)
[2023-02-28] MEDS: SENNA 8.6 MG TAB PO SCH (08:16)
[2023-02-28] MEDS: LANTUS PER UNIT CHARGE SC SCH (08:18)
[2023-02-28] MEDS: INSULIN ASPART PER UNIT CHARGE SC SCH ×4 (08:18→21:14)
[2023-02-28] MEDS: POLYETHYLENE (MIRALAX) 17 GM PACK PO SCH (08:24)
[2023-02-28] MEDS ORDERED: WARFARIN SOD 7.5 MG TAB PO SCH (16:00)
[2023-02-28] MEDS ORDERED: MELATONIN 3 MG TAB PO SCH ×2 (19:30)
[2023-02-28] MEDS: DOXAZOSIN MESYLATE 1 MG TAB PO SCH (21:11)
[2023-02-28] MEDS: ROSUVASTATIN CALCIUM 20 MG TAB PO SCH (21:11)
[2023-03-01 06:50] LABS: INR 3.7 (0.9-1.1); Prothrombin Time 37.7 Seconds (9.0-12.0)
[2023-03-01] MEDS: METOPROLOL TARTRATE 25 MG TAB PO SCH ×2 (07:34→20:26)
[2023-03-01] MEDS: CHOLECALCIFEROL 1,000 UNITS 25 MCG TAB PO SCH (07:34)
[2023-03-01] MEDS: PANTOprazole 40 MG TAB PO SCH (07:34)
[2023-03-01] MEDS: ASPIRIN 81 MG ECTAB PO SCH (07:34)
[2023-03-01] MEDS: FOLIC ACID 1 MG TAB PO SCH ×2 (07:34→20:24)
[2023-03-01] MEDS: SENNA 8.6 MG TAB PO SCH (07:34)
[2023-03-01] MEDS: FUROSEMIDE 40 MG TAB PO SCH (07:35)
[2023-03-01] MEDS: LANTUS PER UNIT CHARGE SC SCH (08:10)
[2023-03-01] MEDS: INSULIN ASPART PER UNIT CHARGE SC SCH ×4 (08:10→20:38)
[2023-03-01] MEDS: POLYETHYLENE (MIRALAX) 17 GM PACK PO SCH (08:10)
[2023-03-01] MEDS: MICONAZOLE NITRATE POWDER 85 GM EXT SCH ×3 (08:10→20:26)
[2023-03-01] MEDS ORDERED: INFLUENZA HI-DOSE VACCINE (HD-IIV4) (Fluzone-HD) IM ONE (11:00)
--- NOTE | 2023-03-01 17:01 | Hospitalist Progress Note ---
Date of Service March 01, 2023 Assessment & Plan (1) DVT (deep venous thrombosis): Plan: Left lower extremity nearly occlusive DVT Unclear etiology, highest risk factor is stasis and obesity CTA with RUL segmental and subsegmental PE, no evidence of malignancy CTA/P without evidence of obvious malignancypatient has been transitioned to warfarin Continue warfarin adjust dose to INR goal 2.03.0 INR 3.4 on 02/28 has been getting coumadin 10 mg/d, 7.5 on 03/01. INR 3.7 today (previously 2s). 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 that he used to be on Tikosyn but this was stopped because he was having too much ventricular ectopy cont heparin/warfarin cont metoprolol 12.5mg BID has episodes of PAF - some rapid - but they are brief and he has no symptoms (4) CAD (coronary artery disease): Plan: s/p stents in the past Cont metoprolol Cont aspirin, rosuvastatin (5) Urinary tract infection: Plan: 2nd group B strep s/p 7 day course of abx resolved (6) Obstructive sleep apnea: Plan: cont CPAP (7) Diabetes: Plan: Hba1c 7.2% pharmacy providing glycemic oversight cont basal-bolus insulin Reviewed blood glucose 03/01, at goal (8) Self-care deficit: Plan: progressive over 6-12 months outpatient providers have noted cognitive decline early dementia process? TSH wnl B12 wnl B1 level wnl will need neuropsych testing post-d/c with neurology if possible office of aging has requested formal capacity assessment Psychiatry evaluated, patient does retain decision-making capacity including medical decisions at this time (9) Morbid obesity with BMI of 40.0-44.9, adult: Plan: BMI 41 (10) Cognitive impairment: Plan: see above Plan spoke with pt's daughter, Tricia, primary contact ideal situation would be assisted living but uncertain he would be agreeable to that following his acute rehab Anticipate SNF postdischarge and ongoing planning, discharge pending unlikely to be placed until after [place] Admission and Anticipated Discharge Date Admission Date: February 18, 2023 Subjective doing fine, denies any feet or leg pain, states his only problem was L leg swelling. no CP or SOB. Physical Exam Physical Exam: PHYSICAL EXAMINATION Last 24h vital signs reviewed, see documentation in flowsheet General: comfortable appearing, no distress, lying on bed HEENT: Normocephalic, atraumatic, pupils round and equal, sclerae anicteric, no conjunctival injection, moist mucus membranes Lungs: Normal respiratory effort. Heart: Deferred Abdomen: Soft, nondistended. Extremities: Warm, dry, well-perfused. Left leg is larger than the right, 1+ left lower extremity edema with mild pitting. Significant improvement compared to 1 week ago when I last examined his leg. Both legs are warm and well- perfused. Venous stasis dermatitis and associated erythema both lower shins unchanged - LE exam unchanged 03/01. No erythema warmth or tenderness of ankles or knees. Neuro: Alert and oriented x hospital and basic situation, maew Psych: Normal affect and behavior Results & Data Results & Data Vital Signs (Past 12 Hours) Vital Signs Temp Pulse Resp BP Pulse Ox O2 Del Method 03/01/23 15:37 36.5 C 77 18 131/84 96 Room Air 03/01/23 07:33 36.3 C L 80 18 105/69 94 Room Air PG Care Time/CCT Total # of Minutes Spent Total Time Spent with Patient: Total time spent is greater than 50% in coordination of care (as documented) at patient's floor/unit and/or counseling patient: Coding Level of Care Code 08437 SUB INP/OBS CARE 2/35MIN Diagnoses DVT (deep venous thrombosis) I82.409 Affected thrombotic vein of extremity: unspecified vein of extremity Chronicity: acute DVT location: lower extremity Laterality: unspecified laterality Cellulitis of lower extremity L03.119 Persistent atrial fibrillation I48.1 CAD (coronary artery disease) I25.10 Urinary tract infection N39.0 Obstructive sleep apnea G47.33 Diabetes E11.9 Self-care deficit Z78.9 Morbid obesity with BMI of 40.0-44.9, adult E66.01; Z68.41 Cognitive impairment R41.89 (1) DVT (deep venous thrombosis) Affected thrombotic vein of extremity: unspecified vein of extremity Chronicity: acute DVT location: lower extremity Laterality: unspecified laterality Qualified Code(s): I82.409 - Acute embolism and thrombosis of unspecified deep veins of unspecified lower extremity
[2023-03-01] MEDS: MELATONIN 3 MG TAB PO SCH (20:23)
[2023-03-01] MEDS: DOXAZOSIN MESYLATE 1 MG TAB PO SCH (20:24)
[2023-03-01] MEDS: ROSUVASTATIN CALCIUM 20 MG TAB PO SCH (20:24)
[2023-03-02] MEDS: FOLIC ACID 1 MG TAB PO SCH ×2 (08:12→20:04)
[2023-03-02] MEDS: PANTOprazole 40 MG TAB PO SCH (08:13)
[2023-03-02] MEDS: ASPIRIN 81 MG ECTAB PO SCH (08:13)
[2023-03-02] MEDS: SENNA 8.6 MG TAB PO SCH (08:13)
[2023-03-02] MEDS: FUROSEMIDE 40 MG TAB PO SCH (08:13)
[2023-03-02] MEDS: POLYETHYLENE (MIRALAX) 17 GM PACK PO SCH (08:14)
[2023-03-02] MEDS: MICONAZOLE NITRATE POWDER 85 GM EXT SCH ×3 (08:14→20:05)
[2023-03-02] MEDS: CHOLECALCIFEROL 1,000 UNITS 25 MCG TAB PO SCH (08:14)
[2023-03-02] MEDS: METOPROLOL TARTRATE 25 MG TAB PO SCH ×2 (08:15→20:06)
[2023-03-02] MEDS: INSULIN ASPART PER UNIT CHARGE SC SCH ×4 (08:20→21:35)
[2023-03-02] MEDS: LANTUS PER UNIT CHARGE SC SCH (08:21)
[2023-03-02 10:00] LABS: INR 3.4 (0.9-1.1); Prothrombin Time 34.4 Seconds (9.0-12.0)
[2023-03-02] MEDS ORDERED: WARFARIN SOD 5 MG TAB PO SCH (16:00)
--- NOTE | 2023-03-02 17:40 | Hospitalist Progress Note ---
Date of Service March 02, 2023 Assessment & Plan (1) DVT (deep venous thrombosis): Plan: Left lower extremity nearly occlusive DVT Unclear etiology, highest risk factor is stasis and obesity CTA with RUL segmental and subsegmental PE, no evidence of malignancy CTA/P without evidence of obvious malignancypatient has been transitioned to warfarin Continue warfarin adjust dose to INR goal 2.03.0 has been getting coumadin 10 mg/d, 7.5 on 02/28, held 03/01, we will dose 5 mg today for INR 3.4 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 outpatient costume draper states that he used to be on Tikosyn but this was stopped because he was having too much ventricular ectopy cont heparin/warfarin cont metoprolol 12.5mg BID has episodes of PAF - some rapid - but they are brief and he has no symptoms (4) CAD (coronary artery disease): Plan: s/p stents in the past Cont metoprolol Cont aspirin, rosuvastatin (5) Urinary tract infection: Plan: 2nd group B strep s/p 7 day course of abx resolved (6) Obstructive sleep apnea: Plan: cont CPAP (7) Diabetes: Plan: Hba1c 7.2% pharmacy providing glycemic oversight cont basal-bolus insulin Reviewed blood glucose 03/02, at goal, has been well-controlled (8) Self-care deficit: Plan: progressive over 6-12 months outpatient providers have noted cognitive decline early dementia process? TSH wnl B12 wnl B1 level wnl will need neuropsych testing post-d/c with neurology if possible office of aging has requested formal capacity assessment Psychiatry evaluated, patient does retain decision-making capacity including medical decisions at this time (9) Morbid obesity with BMI of 40.0-44.9, adult: Plan: BMI 41 (10) Cognitive impairment: Plan: see above Plan spoke with pt's daughter, Tricia, primary contact ideal situation would be assisted living but uncertain he would be agreeable to that following his acute rehab Anticipate SNF postdischarge and ongoing planning, discharge pending unlikely to be placed until after [place] Admission and Anticipated Discharge Date Admission Date: February 18, 2023 Subjective no leg pain, just swelling unchanged. No chest pain no shortness of breath Physical Exam Physical Exam: PHYSICAL EXAMINATION Last 24h vital signs reviewed, see documentation in flowsheet General: in bed awake watching TV HEENT: Normocephalic, atraumatic, pupils round and equal, sclerae anicteric, no conjunctival injection, moist mucus membranes Lungs: Normal respiratory effort. Heart: Deferred Abdomen: Soft, nondistended. Extremities: Warm, dry, well-perfused. Left leg is larger than the right, 1+ left lower extremity edema with mild pitting. Both legs are warm and well- perfused. Venous stasis dermatitis and associated erythema both lower shins unchanged - LE exam unchanged 03/02. Neuro: Alert and oriented x hospital and basic situation, maew Psych: Normal affect and behavior Results & Data Results & Data Vital Signs (Past 12 Hours) Vital Signs Temp Pulse Pulse Resp BP Pulse Ox O2 Del Method 03/02/23 14:26 36.7 C 55 L 16 124/72 95 Room Air 03/02/23 08:10 Room Air 03/02/23 08:10 36.8 C 55 L 18 120/62 95 Room Air 03/02/23 08:00 36.6 C 68 18 124/75 93 Room Air PG Care Time/CCT Total # of Minutes Spent Total Time Spent with Patient: Total time spent is greater than 50% in coordination of care (as documented) at patient's floor/unit and/or counseling patient: Coding Level of Care Code 71161 SUB INP/OBS CARE 2/35MIN Diagnoses DVT (deep venous thrombosis) I82.409 Affected thrombotic vein of extremity: unspecified vein of extremity Chronicity: acute DVT location: lower extremity Laterality: unspecified laterality Cellulitis of lower extremity L03.119 Persistent atrial fibrillation I48.1 CAD (coronary artery disease) I25.10 Urinary tract infection N39.0 Obstructive sleep apnea G47.33 Diabetes E11.9 Self-care deficit Z78.9 Morbid obesity with BMI of 40.0-44.9, adult E66.01; Z68.41 Cognitive impairment R41.89 (1) DVT (deep venous thrombosis) Affected thrombotic vein of extremity: unspecified vein of extremity Chronicity: acute DVT location: lower extremity Laterality: unspecified laterality Qualified Code(s): I82.409 - Acute embolism and thrombosis of unspecified deep veins of unspecified lower extremity
[2023-03-02] MEDS: DOXAZOSIN MESYLATE 1 MG TAB PO SCH (20:03)
[2023-03-02] MEDS: ROSUVASTATIN CALCIUM 20 MG TAB PO SCH (20:04)
[2023-03-02] MEDS: MELATONIN 3 MG TAB PO SCH (21:35)
[2023-03-03] MEDS: POLYETHYLENE (MIRALAX) 17 GM PACK PO SCH (07:54)
[2023-03-03] MEDS: SENNA 8.6 MG TAB PO SCH (07:54)
[2023-03-03] MEDS: PANTOprazole 40 MG TAB PO SCH (07:55)
[2023-03-03] MEDS: CHOLECALCIFEROL 1,000 UNITS 25 MCG TAB PO SCH (07:55)
[2023-03-03] MEDS: METOPROLOL TARTRATE 25 MG TAB PO SCH ×2 (07:55→21:20)
[2023-03-03] MEDS: FUROSEMIDE 40 MG TAB PO SCH (07:55)
[2023-03-03] MEDS: FOLIC ACID 1 MG TAB PO SCH ×2 (07:56→21:19)
[2023-03-03] MEDS: ASPIRIN 81 MG ECTAB PO SCH (07:56)
[2023-03-03] MEDS: INSULIN ASPART PER UNIT CHARGE SC SCH ×4 (07:58→21:18)
[2023-03-03] MEDS: LANTUS PER UNIT CHARGE SC SCH (07:58)
[2023-03-03] MEDS: MICONAZOLE NITRATE POWDER 85 GM EXT SCH ×3 (08:13→21:21)
[2023-03-03] MEDS ORDERED: WARFARIN SOD 5 MG TAB PO SCH (16:00)
--- NOTE | 2023-03-03 17:24 | Hospitalist Progress Note ---
Date of Service March 03, 2023 Assessment & Plan (1) DVT (deep venous thrombosis): Plan: Left lower extremity nearly occlusive DVT Unclear etiology, highest risk factor is stasis and obesity CTA with RUL segmental and subsegmental PE, no evidence of malignancy CTA/P without evidence of obvious malignancypatient has been transitioned to warfarin Continue warfarin adjust dose to INR goal 2.03.0 Previously getting coumadin 10 mg/d, 7.5 on 02/28, held 03/01, 5 mg 03/02, 5 mg 03/03 for INR 3.4 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 outpatient animal geneticist states that he used to be on Tikosyn but this was stopped because he was having too much ventricular ectopy cont heparin/warfarin cont metoprolol 12.5mg BID has episodes of PAF - some rapid - but they are brief and he has no symptoms (4) CAD (coronary artery disease): Plan: s/p stents in the past Cont metoprolol Cont aspirin, rosuvastatin (5) Urinary tract infection: Plan: 2nd group B strep s/p 7 day course of abx resolved (6) Obstructive sleep apnea: Plan: cont CPAP (7) Diabetes: Plan: Hba1c 7.2% pharmacy providing glycemic oversight cont basal-bolus insulin Reviewed blood glucose 03/03, at goal, has been well-controlled (8) Self-care deficit: Plan: progressive over 6-12 months outpatient providers have noted cognitive decline early dementia process? TSH wnl B12 wnl B1 level wnl will need neuropsych testing post-d/c with neurology if possible office of aging has requested formal capacity assessment Psychiatry evaluated, patient does retain decision-making capacity including medical decisions at this time (9) Morbid obesity with BMI of 40.0-44.9, adult: Plan: BMI 41 (10) Cognitive impairment: Plan: see above Plan spoke with pt's daughter, Tricia, primary contact ideal situation would be assisted living but uncertain he would be agreeable to that following his acute rehab Anticipate SNF postdischarge and ongoing planning, discharge pending unlikely to be placed until after [place] Admission and Anticipated Discharge Date Admission Date: February 18, 2023 Subjective doing well and looking forward to discharge to rehab SNF soon. bilateral LE edema improved since admission, LLE remains more edematous than R, no LLE pain or chest pain Physical Exam Physical Exam: PHYSICAL EXAMINATION Last 24h vital signs reviewed, see documentation in flowsheet General: comfortable appearing, no distress, sitting up in the chair HEENT: Normocephalic, atraumatic, pupils round and equal, sclerae anicteric, no conjunctival injection, moist mucus membranes Lungs: Normal respiratory effort. Clear to auscultation bilaterally. No RRW Heart: Regular rate and rhythm, no murmurs. No JVD Abdomen: Soft, nondistended. Extremities: Warm, dry, well-perfused. 3+ L>RLE extremity edema, venous stasis erythema and dermatitis bilateral ankles. Neuro: Alert and oriented x hospital and basic situation, forgetful, face symmetric, moves 4 extremities well Psych: Normal affect and behavior Results & Data Results & Data Vital Signs (Past 12 Hours) Vital Signs Temp Pulse Resp BP Pulse Ox O2 Del Method 03/03/23 14:04 36.3 C L 70 16 125/67 94 Room Air 03/03/23 08:00 Room Air 03/03/23 07:36 36.4 C L 73 18 108/67 94 Room Air PG Care Time/CCT Total # of Minutes Spent Total Time Spent with Patient: Total time spent is greater than 50% in coordination of care (as documented) at patient's floor/unit and/or counseling patient: Coding Level of Care Code 44682 SUB INP/OBS CARE 2/35MIN Diagnoses DVT (deep venous thrombosis) I82.409 Affected thrombotic vein of extremity: unspecified vein of extremity Chronicity: acute DVT location: lower extremity Laterality: unspecified laterality Cellulitis of lower extremity L03.119 Persistent atrial fibrillation I48.1 CAD (coronary artery disease) I25.10 Urinary tract infection N39.0 Obstructive sleep apnea G47.33 Diabetes E11.9 Self-care deficit Z78.9 Morbid obesity with BMI of 40.0-44.9, adult E66.01; Z68.41 Cognitive impairment R41.89 (1) DVT (deep venous thrombosis) Affected thrombotic vein of extremity: unspecified vein of extremity Chronicity: acute DVT location: lower extremity Laterality: unspecified laterality Qualified Code(s): I82.409 - Acute embolism and thrombosis of unspecified deep veins of unspecified lower extremity
[2023-03-03] MEDS: ROSUVASTATIN CALCIUM 20 MG TAB PO SCH (21:19)
[2023-03-03] MEDS: MELATONIN 3 MG TAB PO SCH (21:19)
[2023-03-03] MEDS: DOXAZOSIN MESYLATE 1 MG TAB PO SCH (21:19)
[2023-03-04] MEDS: METOPROLOL TARTRATE 25 MG TAB PO SCH ×2 (07:51→20:15)
[2023-03-04] MEDS: FOLIC ACID 1 MG TAB PO SCH ×2 (07:52→20:16)
[2023-03-04] MEDS: ASPIRIN 81 MG ECTAB PO SCH (07:52)
[2023-03-04] MEDS: POLYETHYLENE (MIRALAX) 17 GM PACK PO SCH (07:52)
[2023-03-04] MEDS: FUROSEMIDE 40 MG TAB PO SCH (07:52)
[2023-03-04] MEDS: MELATONIN 3 MG TAB PO SCH (07:52)
[2023-03-04] MEDS: CHOLECALCIFEROL 1,000 UNITS 25 MCG TAB PO SCH (07:53)
[2023-03-04] MEDS: PANTOprazole 40 MG TAB PO SCH (07:53)
[2023-03-04] MEDS: SENNA 8.6 MG TAB PO SCH (07:53)
[2023-03-04] MEDS: INSULIN ASPART PER UNIT CHARGE SC SCH ×4 (07:54→21:08)
[2023-03-04] MEDS: LANTUS PER UNIT CHARGE SC SCH (07:54)
[2023-03-04] MEDS: MICONAZOLE NITRATE POWDER 85 GM EXT SCH ×3 (08:53→20:16)
[2023-03-04 11:24] LABS: INR 3.3 (0.9-1.1); Prothrombin Time 33.7 Seconds (9.0-12.0)
--- NOTE | 2023-03-04 12:36 | Hospitalist Progress Note ---
Date of Service March 04, 2023 Assessment & Plan (1) DVT (deep venous thrombosis): Plan: Left lower extremity nearly occlusive DVT Unclear etiology, highest risk factor is stasis and obesity CTA with RUL segmental and subsegmental PE, no evidence of malignancy CTA/P without evidence of obvious malignancypatient has been transitioned to warfarin Continue warfarin adjust dose to INR goal 2.03.0 Previously getting coumadin 10 mg/d, 7.5 on 02/28, held 03/01, 5 mg 03/02, 5 mg 03/03, 5 mg 03/04 for INR 3.3 INR daily, reordered (2) Cellulitis of lower extremity: Plan: resolved clinically Treated with ceftriaxone/Keflex completed 7 days of Rx in total - off all abx Current changes are related to venous stasis dermatitis (3) Persistent atrial fibrillation: Plan: his outpatient sheriffs states that he used to be on Tikosyn but this was stopped because he was having too much ventricular ectopy cont heparin/warfarin cont metoprolol 12.5mg BID has episodes of PAF - some rapid - but they are brief and he has no symptoms (4) CAD (coronary artery disease): Plan: s/p stents in the past Cont metoprolol Cont aspirin, rosuvastatin (5) Urinary tract infection: Plan: 2nd group B strep s/p 7 day course of abx resolved (6) Obstructive sleep apnea: Plan: cont CPAP (7) Diabetes: Plan: Hba1c 7.2% pharmacy providing glycemic oversight cont basal-bolus insulin Reviewed blood glucose 03/03, at goal, has been well-controlled (8) Self-care deficit: Plan: progressive over 6-12 months outpatient providers have noted cognitive decline early dementia process? TSH wnl B12 wnl B1 level wnl will need neuropsych testing post-d/c with neurology if possible office of aging has requested formal capacity assessment Psychiatry evaluated, patient does retain decision-making capacity including medical decisions at this time (9) Morbid obesity with BMI of 40.0-44.9, adult: Plan: BMI 41 (10) Cognitive impairment: Plan: see above Plan spoke with pt's daughter, Tricia, primary contact ideal situation would be assisted living but uncertain he would be agreeable to that following his acute rehab Anticipate SNF postdischarge and ongoing planning, discharge pending unlikely to be placed until after [place] Admission and Anticipated Discharge Date Admission Date: February 18, 2023 Subjective doing well, no leg pain, no change in leg swelling which has slowly improved. Physical Exam Physical Exam: PHYSICAL EXAMINATION Last 24h vital signs reviewed, see documentation in flowsheet General: lying in bed watching TV HEENT: Normocephalic, atraumatic, pupils round and equal, sclerae anicteric, no conjunctival injection, moist mucus membranes Lungs: Normal respiratory effort Heart: def Abdomen: Soft, nondistended. Extremities: Warm, dry, well-perfused. 3+ L>RLE extremity edema, venous stasis erythema and dermatitis bilateral ankles. unchanged 03/04 Neuro: Alert and oriented x hospital and basic situation, forgetful, face symmetric, moves 4 extremities well Psych: Normal affect and behavior Results & Data Results & Data Vital Signs (Past 12 Hours) Vital Signs Temp Pulse Resp BP Pulse Ox O2 Del Method 03/04/23 07:55 Room Air 03/04/23 07:17 36.3 C L 75 16 107/71 93 Room Air PG Care Time/CCT Total # of Minutes Spent Total Time Spent with Patient: Total time spent is greater than 50% in coordination of care (as documented) at patient's floor/unit and/or counseling patient: Coding Level of Care Code 69765 SUB INP/OBS CARE MIN Diagnoses DVT (deep venous thrombosis) I82.409 Affected thrombotic vein of extremity: unspecified vein of extremity Chronicity: acute DVT location: lower extremity Laterality: unspecified laterality Cellulitis of lower extremity L03.119 Persistent atrial fibrillation I48.1 CAD (coronary artery disease) I25.10 Urinary tract infection N39.0 Obstructive sleep apnea G47.33 Diabetes E11.9 Self-care deficit Z78.9 Morbid obesity with BMI of 40.0-44.9, adult E66.01; Z68.41 Cognitive impairment R41.89 (1) DVT (deep venous thrombosis) Affected thrombotic vein of extremity: unspecified vein of extremity Chronicity: acute DVT location: lower extremity Laterality: unspecified laterality Qualified Code(s): I82.409 - Acute embolism and thrombosis of unspecified deep veins of unspecified lower extremity
[2023-03-04] MEDS ORDERED: WARFARIN SOD 5 MG TAB PO SCH (16:00)
[2023-03-04] MEDS: ROSUVASTATIN CALCIUM 20 MG TAB PO SCH (20:15)
[2023-03-04] MEDS: DOXAZOSIN MESYLATE 1 MG TAB PO SCH (20:15)
[2023-03-05 08:34] LABS: INR 3.3 (0.9-1.1); Prothrombin Time 33.5 Seconds (9.0-12.0)
[2023-03-05] MEDS: CHOLECALCIFEROL 1,000 UNITS 25 MCG TAB PO SCH (08:44)
[2023-03-05] MEDS: FOLIC ACID 1 MG TAB PO SCH (08:45)
[2023-03-05] MEDS: FUROSEMIDE 40 MG TAB PO SCH (08:45)
[2023-03-05] MEDS: PANTOprazole 40 MG TAB PO SCH (08:45)
[2023-03-05] MEDS: METOPROLOL TARTRATE 25 MG TAB PO SCH (08:46)
[2023-03-05] MEDS: ASPIRIN 81 MG ECTAB PO SCH (08:46)
[2023-03-05] MEDS: MICONAZOLE NITRATE POWDER 85 GM EXT SCH (08:47)
[2023-03-05] MEDS: SENNA 8.6 MG TAB PO SCH (08:47)
[2023-03-05] MEDS: LANTUS PER UNIT CHARGE SC SCH (09:17)
[2023-03-05] MEDS: INSULIN ASPART PER UNIT CHARGE SC SCH ×2 (09:18→12:47)
[2023-03-05] MEDS: POLYETHYLENE (MIRALAX) 17 GM PACK PO SCH (09:19)
[2023-03-05] MEDS ORDERED: WARFARIN SOD 5 MG TAB PO SCH (16:00)
--- NOTE | 2023-03-05 19:25 | Discharge Summary ---
Date of Service March 05, 2023 Admission HPI Per Admitting Provider came into the hospital because of left leg swelling, which was noticed by neighbors and he had been referred to the office of aging Principal Diagnosis left lower extremity DVT, pulmonary embolism Discharge Exam PHYSICAL EXAMINATION Last 24h vital signs reviewed, see documentation in flowsheet General: sitting in the chair watching [employer] HEENT: Normocephalic, atraumatic, pupils round and equal, sclerae anicteric, no conjunctival injection, moist mucus membranes Lungs: Normal respiratory effort Heart: regular no murmurs rubs or gallops Abdomen: Soft, nondistended. Extremities: Warm, dry, well-perfused. 3+ L>RLE extremity edema, venous stasis erythema and dermatitis bilateral ankles. unchanged 03/05 but significantly compared to 2 weeks ago Neuro: Alert and oriented x hospital and basic situation, face symmetric, moves 4 extremities well Psych: Normal affect and behavior Discharge Data Allergies Allergy/AdvReac Type Severity Reaction Status Date / Time No Known Allergies Allergy Verified 02/18/23 17:02 Consultations 02/18/23 21:10 ED Decision to Admit Stat 02/21/23 07:40 Consult Neurology Routine 02/23/23 10:39 Consult Psychiatry Routine 03/05/23 11:07 Consult [facility] counter server Routine Ordered Studies 02/18/23 18:44 US venous doppler LE BI Stat 02/24/23 09:20 CT Abd and Pelvis [CT abd pelvis IV con only] Routine 02/27/23 08:00 CT angio chest PE protocol Routine Venous Doppler Study 02/18/23 18:44 ULTRASOUND BILATERAL LOWER EXTREMITY VENOUS CLINICAL HISTORY: Extremity swelling and erythema. COMPARISON STUDY: No prior studies are available for comparison at the time of dictation. TECHNIQUE: Real-time, grayscale, and color Doppler sonography of the deep veins of the right and left lower extremity was performed from the inguinal crease to the calf. Compression and augmentation were utilized. FINDINGS: Right lower extremity: There is no sonographic evidence of deep venous thrombosis in either lower extremity. The common femoral, superficial femoral, and popliteal veins are patent and normally compressible. The greater saphenous vein and the profunda femoris vein at the junction with the common femoral vein are clear. The visualized calf veins are patent. Left lower extremity: There is nearly occlusive deep venous thrombosis in the left common femoral vein. Occlusive deep venous thrombosis is seen extending to the proximal superficial femoral vein to the distal popliteal vein. The left calf vessels were not visualized due to severe edema. IMPRESSION: 1. Extensive left lower extremity deep venous thrombosis as above. 2. There is no sonographic evidence of deep venous thrombosis in the right lower extremity. ACT 112: Negative or not required by law. Electronically signed by: Contreras Aguirre M.D. 02/18/2023 8:32 PM Abdomen/Pelvis CT 02/24/23 09:20 CT abd pelvis IV con only CLINICAL HISTORY: unprovoked DVT, weight loss, abd pain TECHNIQUE: Helical axial images of the abdomen and pelvis were obtained and displayed. Automated dose lowering techniques and/or adjustment according to patient size were utilized for this exam. This exam was performed with intravenous contrast. CT DOSE: 1437.03 mGy.cm COMPARISON: Comparison is made to CT abdomen pelvis 10/04/2021 FINDINGS: Lower chest: No acute abnormality. Liver: Hepatic steatosis is noted. Gallbladder and biliary tree: Patient is status post cholecystectomy. Phys iologic prominence of the biliary ducts is noted. Pancreas: Unremarkable, no focal lesions. Spleen: Unremarkable. Adrenals: Unremarkable. Kidneys and ureters: Unremarkable. Bladder: Unremarkable. Reproductive organs: Unremarkable. Bowel: Diverticulosis is seen without diverticulitis. The appendix is normal. Soft tissue density in the distal rectum likely represents the anal sphincter. Lymph nodes Retroperitoneal: Unremarkable. Pelvic: Unremarkable. Mesenteric: Unremarkable. Peritoneum: Normal. Vessels: Atherosclerotic calcifications are seen. Abdominal wall: Unremarkable. Bones: Degenerative changes in the visualized spine. Total right hip arthroplasty is seen. IMPRESSION: 1. No acute abnormality and in particular no mass lesion to suggest malignancy. 2. Hepatic steatosis. 3. Diverticulosis without diverticulitis. ACT 112: Negative or not required by law. Electronically signed by: Eric Chavez M.D. 02/24/2023 1:35 PM Chest CTA 02/27/23 08:00 CHEST CTA for PULMONARY ARTERIES CT DOSE: 892.94 mGy.cm HISTORY: LLE DVT, dyspnea; eval for pulmonary embolus TECHNIQUE: Multiaxial CT images of the chest were performed following the intravenous administration of contrast to evaluate the pulmonary arteries. 3D/Maximal intensity projection images were also obtained. Sagittal and coronal reformations were also reviewed. A dose lowering technique was utilized adhering to the principles of ALARA. COMPARISON STUDY: None. FINDINGS: Normal caliber thoracic aorta with no evidence for a dissection. The majority of the bilateral lower lobe segmental/subsegmental pulmonary arteries are nondiagnostic due to motion artifact. There is a filling defect seen within the right upper lobe segmental/subsegmental pulmonary artery on image 130 consistent with a pulmonary embolus. No evidence for right-sided heart strain. The heart is normal in size. No pleural or pericardial effusions. Limited views the upper abdomen demonstrate normal liver, spleen, and adrenal glands. Prior cholecystectomy. No mediastinal or hilar lymphadenopathy. Normal esophagus. Moderate to severe coronary artery calcifications. Bilateral total shoulder arthroplasties. No acute fractures identified. There is a trimalleolar artifact results in suboptimal evaluation of the lungs. The central airways appear patent. No focal lung consolidations to suggest a pneumonia or pulmonary infarct. No evidence for pulmonary edema. No pneumothorax. IMPRESSION: A right upper lobe segmental/subsegmental pulmonary embolus. No evidence for right-sided heart strain. ACT 112: Negative or not required by law. Electronically signed by: Beto Rodriguez M.D. 02/27/2023 10:05 AM Hospital Course (1) DVT (deep venous thrombosis): Left lower extremity nearly occlusive DVT, present on admission. Later in the hospital stay he had a CTA chest 02/27 which showed a right upper lobe segment al/subsegmental pulmonary embolism Unclear etiology, highest risk factor is stasis and obesity CTA with RUL segmental and subsegmental PE, no evidence of malignancy on CT of abdomen and chest initially treated with heparin drip and then transitioned to warfarin Continue warfarin adjust dose to INR goal 2.03.0 Previously getting coumadin 10 mg/d, 7.5 on 02/28, held 03/01 for INR 3.6, 5 mg 03/02, 5 mg 03/03, 5 mg 03/04 for INR 3.3 -Plan to continue 5 mg daily this , recommend Protime/INR Tuesday 03/07 and adjust to INR goal 2.0-3.0 for DVT/PE and atrial fibrillation -ultimately may need 7.5 mg a few times a week alternating with 5 mg -could consider DOAC, however, warfarin was used because 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 and also home compliance and lack of monitoring for DOAC was a concern (2) Cellulitis of lower extremity: resolved clinically Treated with ceftriaxone/Keflex completed 7 days of Rx in total - off all abx greater than 1 week Current changes are related to venous stasis dermatitis Edema much improved on regular oral torsemide (3) Persistent atrial fibrillation: his outpatient lcsw states that he used to be on Tikosyn but this was stopped because he was having too much ventricular ectopy cont warfarin cont metoprolol 12.5mg BID has episodes of PAF - some rapid - but they are brief and he has no symptoms (4) CAD (coronary artery disease): s/p stents in the past Cont metoprolol Cont aspirin, rosuvastatin Remains asymptomatic (5) Urinary tract infection: 2nd group B strep s/p 7 day course of abx resolved (6) Obstructive sleep apnea: cont CPAP (7) Diabetes: Hba1c 7.2% resumed empaglifozin and sliding scale aspart or lispro PRN in hospital had been well controlled on glargine 10-15 units daily and premeal short acting (8) Self-care deficit: progressive over 6-12 months outpatient providers have noted cognitive decline early dementia process? TSH wnl B12 wnl B1 level wnl will need neuropsych testing post-d/c with neurology if possible - made outpatient neurology referral office of aging requested formal capacity assessment Psychiatry evaluated, patient does retain decision-making capacity including medical decisions at this time (9) Morbid obesity with BMI of 40.0-44.9, adult: BMI 41 (10) Cognitive impairment: see above Plan daughterTricia, primary contact Total Time Total Time Spent Total Time Spent (In Minutes): I personally spent: 40 minutes on clinical care activities coordinating care for discharge today including: reviewing chart notes and vital signs reviewing labs discussion with client care manager examining and counseling the patient writing orders documentation Discharge Plan Discharge Items Patient Disposition: Transfer Custodial Fac Reason For Visit: DVT,POOR SELF CARE Discharge Diagnosis: LLE DVT, LLE cellulitis resolved, moderate cognitive impairment Condition on Discharge: Fair Activity: Resume your previous activity Non-emergency contact: Primary Care Provider Call non-emergency contact if: you have any medication questions and your symptoms worsen Follow-up/Referrals: Ta Chi, [Primary Care Provider] - [facility] [Non-Staff] - Diet: Carb Consistent or DM2 and Heart Healthy Addtl Attending Provider Instructions: PT and OT evaluate and treat Protime/INR check Tuesday 03/07 then as needed at least weekly and adjust coumadin to INR 2.0-3.0 for LLE DVT and atrial fibrillation Discharge dose 5 mg daily, may need 7.5 mg two or three times a week Diabetic heart-healthy diet Short acting insulin premeal/correctional aspart or lispro if needed with moderate dose sliding scale --hypoglycemia protocol CPAP while sleeping per home settings Please schedule follow up with [facility] General Neurology for cognitive impairment Pending Studies at Discharge: No Stand-Alone Forms: My [facility] Skilled Items Patient informed of condition?: Yes DNR: No Discharge Level of Care: Skilled Communicable Disease: No Discharge Prognosis: Improving Lines: None Urinary Catheter: No Medications and DC Order Prescriptions: New metoprolol tartrate 25 mg Tablet 12.5 mg PO BID Qty: 0 0RF furosemide 40 mg Tablet 40 mg PO QAM Qty: 0 0RF glucose [Dex4 Glucose] 4 gram Tablet,Chewable 4 g PO UD PRN (Reason: hypoglycemia) Qty: 0 0RF polyethylene glycol 3350 [Miralax] 17 gram Powder In Packet 17 g PO DAILY Qty: 0 0RF sennosides [Senokot] 8.6 mg Tablet 17.2 mg PO QAM Qty: 0 0RF melatonin 3 mg Tablet 3 mg PO HS Qty: 0 0RF miconazole nitrate [Desenex] 2 % Powder 1 applic EXT TID Qty: 0 0RF Continued multivitamin Tablet 1 tab PO QAM aspirin 81 mg Tablet,Delayed Release (Dr/Ec) 81 mg PO QAM rosuvastatin 20 mg Tablet 20 mg PO QPM folic acid 1 mg Tablet 1 mg PO BID doxazosin [Cardura] 1 mg Tablet 1 mg PO QPM nitroglycerin [Nitrostat] 0.4 mg Tablet, Sublingual 0.4 mg sublingual .EVERY 5 MIN PRN (Reason: Chest Pain) Rx Instructions: x3 doses q 5mins for chest pain albuterol sulfate 90 mcg/actuation Hfa Aerosol Inhaler 2 puff INHALATION Q6H PRN (Reason: Wheezing) Rx Instructions: pro air hfa coenzyme Q10 400 mg Capsule 400 mg PO QAM cholecalciferol (vitamin D3) [Vitamin D3] 50 mcg (2,000 unit) Capsule 50 mcg PO DAILY warfarin 5 mg tablet 5 mg PO UD Rx Instructions: take 2 tablets in evening on tuesday,tuesday, ...other day take 1 tablet in evening pantoprazole 40 mg tablet,delayed release (DR/EC) 40 mg PO DAILY Jardiance 10 mg tablet 10 mg PO QAM furosemide [Lasix] 40 mg Tablet 40 mg PO QPM Qty: 1 0RF Rx Instructions: at 4pm acetaminophen [Acetaminophen Pain Relief] 500 mg Tablet 1,000 mg PO Q6H PRN (Reason: Fever Or Pain) Qty: 1 0RF Rx Instructions: Not to exceed 2000 mg per 24h Discontinued atenolol 50 mg tablet 50 mg PO BID Discharge Orders: Discharge Order (Routine); Ordered 03/05/23 Ordered By: Tricia Rg/Other Patient Handouts: Managing Type 2 Diabetes Admission Data Admit Date/Time: 02/18/23 21:54 Attending Provider: Tricia Cruz Admit Provider: Edward Shea Primary Care Provider: Ta Chi Other Providers: [facility]; Sandra Gibson [facility]; Edward Shea; Dionicio Arteaga; Jose Luis Goncalves; Geno Cordero; Iraida Rodriguez; Brooke Floyd; Kahlil Gallagher; Herrera Shea. Other Interventions: Discharge Summary Assessment (RN) Last Done: 03/05/23 11:19 Coding Level of Care Code 89500 INP/OBS DISCH >30 MIN Diagnoses DVT (deep venous thrombosis) I82.409 Affected thrombotic vein of extremity: unspecified vein of extremity Chronicity: acute DVT location: lower extremity Laterality: unspecified laterality Cellulitis of lower extremity L03.119 Persistent atrial fibrillation I48.1 CAD (coronary artery disease) I25.10 Urinary tract infection N39.0 Obstructive sleep apnea G47.33 Diabetes E11.9 Self-care deficit Z78.9 Morbid obesity with BMI of 40.0-44.9, adult E66.01; Z68.41 Cognitive impairment R41.89
== END 2023-03-05 15:10 | DRG 299 ==
LOC: ED 16:22 → SUATTDRO 21:54 → 2S 21:54 → 3E 02-25 13:42

== ENCOUNTER 2023-03-26 14:47 | Inpatient (IN) ==
--- OUTSIDE RECORDS SUMMARY | 2023-03-26 14:53 | External Medical Summary | Summary of Care ---
Author Name Unknown Organization [facility] Address [address] [place] [address] Phone [phone] Care Team Providers Care Packaging Specialist Name Role Phone Julieth Hargrove PA-C Primary Care Provide r Reason for Visit * Reason Comments Hospital Follow-Up Dosage Adjustment Via Phone (anticoag Cl inic) Encounter Details Date Type Department Care Team (Latest Contact Info) Description 03/25/2023 5:10 PM EST Anticoagulation Pharmacy, [facility] [address] [place] [address] [facility] [address] [place] [address] Persistent atrial fibrillation (HCC)* Allergies No known active allergiesdocumented as of this encounter (statuses as of 03/25/2023) Medications Medication Sig Dispensed Refills Start Date [...] Nasal SolutionIndications: Other chronic sinusitis Administer 1 [place] into nostril in the morning and 1 [place] before bedtime. 30 mL 12 07/13/2016 Active [...] Oral Tablet (Cardura)Indications :Coronary artery disease involving jamul coronary artery of jamul heart without angina pectoris TAKE 1 TABLET [...] as of this encounter (statuses as of 03/25/2023) Active Problems Problem Noted Date Diagnosed Date [...] disorder 01/22/2014 Coronary artery disease invo lving jamul coronary artery of jamul heart without angina pectoris 02/24/2012 Dyslipidemia, goal LDL below 70 02/18/2009 Overview: Per Lipid Taxonomy. Gastroesophageal reflux disease without esophagi tis 01/14/2009 Chronic rhinitis 01/14/2009 Type 2 diabetes mellitus wit h hemoglobin A1c goal of less than 7.0% 01/02/2009 Overview: Per Diabetes Taxonomy. ICD-10 update of inactive term OLD MYOCARDIAL INFARCT 09/26/2008 Overview: Modified by Acute MA Protocol #5. 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 MAMI (obstructive sleep apnea) 03/07/1994 Overview: 10/2012 -- auto CPAP 16 cwp 06/26/12 -- changed from [employer] to T&B 08/06/11 -- CPAP auto 13-16 cwp 2007 - REMstar Plus CPAP 15 cwp T&B Medical ACEI/ARB contraindicated documented as of this encounter (statuses as of 03/25/2023) Resolved Problems Problem Noted Date Diagnosed Date [...] as of this encounter (statuses as of 03/25/2023) Immunizations Name Administration Dates Next Due Hepatitis [...] as of this encounter Progress Notes * Juanpablo Nichols RPh - 03/25/2023 3:17 PM EST Patient Phone Numbers Called and spoke to patient. I asked if he has home health and he says he doesn't know (was going to schedule home labs if so). He is disagreeable to schedule INR fingerstick at this time. He asked if we could call next week to schedule. I tried to insist he instead schedule now but he hung up on me. Will place patient exchange consultant schedule for next week as requested. Would suspect if patient remains disagreeable to INR checks then it may be ultimately unsafe to continue on warfarin, especially if he is also unwilling to do mobile phleb. Juanpablo Nichols, PharmD, [facility] [employer] Cutting Machine Operator Clinical Pharmacist 03/25/2023, 3:29 PM documented in this encounter Plan of Treatment Upcoming Encounters Date Type Department Care Team (Late st Contact Info) Description 03/29/2023 5:30 PM EST Anticoagulation Pharmacy, [address] [place] [id number] [place] [place] [address] [place] [address] Health Maintenance Due Date Last Done Comments [...] Hepatitis B Completed 10/14/2016, 03/0 11/2016, 04/15/2016 Zoster Vaccines Completed 12/28/2018, 09/05, 03/02/2013 Pneumococcal Vaccine: 65+ Years Completed 02/27/2023, 11/15/2016, 07/28/2015, Additional history exists GARDASIL-HPV IMMUNIZATION SERIES Aged Out No longer eligible based on patient's age to complete this topic MENINGOCOCCAL (MENACTRA/MENVEO) Aged Out No longer eligible based on patient's age to complete this topic documented as of this encounter Medical Devices Not on filedocumented as of this encounter Visit Diagnoses Diagnosis Persistent atrial fibrillation (HCC)- Primary Atrial fibrillation documented in this encounter Care Teams Packaging Specialist Relationship Specialty Start Date End Date Julieth Hargrove PA-C [address] [place] [address], [place] [address] PCP - General Physician Health Outcomes Liaison 03/18/21 documented as of this encounter
--- NOTE | 2023-03-26 15:02 | Emergency Department Note ---
Impression & Plan Leukocytosis, Cellulitis, Acute hypokalemia, Weakness ED Provider Note NAME: NINO SEAMAN AGE: 72 SEX: M : 1950 ARRIVES VIA: Ambulance INFORMANT: Patient ED PROVIDER(S): Mohsen Ramos DO CHIEF COMPLAINT: black spot on buttocks HPI: Patient is a 72-year-old male with a past medical history of DVT, CAD, lymphedema of the bilateral lower extremities who presents to the ER for black spots on his buttocks with pain which she notes has been present for months off and on. He denies any headache or change in vision. No chest pain or shortness of breath. No nausea, vomiting, or diarrhea. He notes he has chronic swelling of his bilateral lower legs. These have not changed recently. He does have a Estevez in place. No dysuria, urgency, or frequency. No other exacerbating or remitting factors. Per EMS he generally sits in a chair and does not move much at [facility]. They believe the skin breakdown is from this. Patient notes that he did fall several days ago. Did not hit his head. Denies any back pain. ADDITIONAL HISTORY OBTAINED: Per HPI Chronic Medical/Social Conditions Affecting Care: Per HPI PAST MEDICAL HISTORY:See Below PAST SURGICAL HISTORY:See Below FAMILY HISTORY:See Below SOCIAL HISTORY:See Below HOME MEDICATIONS:See Below ALLERGIES:See Below VITALS:See Below PHYSICAL EXAMINATION: GENERAL: Sitting up in bed, alert, well appearing, well nourished, no distress, non-toxic EYE EXAM: normal conjunctiva. OROPHARYNX: no exudate, no erythema, lips, buccal mucosa, and tongue normal and mucous membranes are moist NECK: supple, no nuchal rigidity, no adenopathy, non-tender LUNGS: Clear to auscultation. Normal chest wall mechanics HEART: no murmurs, S1 normal and S2 normal ABDOMEN: abdomen soft, non-tender, normo-active bowel sounds, no masses, no rebound or guarding. : Estevez in place BACK: No tenderness throughout the lumbar spine. RECTAL: Skin breakdown on the bilateral inferior gluteal regions with 1 area of skin breakdown. No crepitus. No signs of neck fasciitis. Erythema tracking to the scrotum with several ulcers at the base of scrotum. no drainage or discharge. Skin is slightly warm and tender at the base of the gluteus and tracking up to the scrotum UPPER EXTREMITIES: upper extremities are grossly normal. LOWER EXTREMITIES: Pitting edema in the bilateral lower extremities with what appears to be Chronic venous stasis changes/ulcers NEURO EXAM: Normal sensorium, cranial nerves II-XII grossly intact, normal speech, no gross weakness of arms, no gross weakness of legs. MEDICAL DECISION MAKING: Patient is a 72-year-old male who presents to the ER for the above-stated complaint. IV was established blood work was obtained. Labs show leukocytosis of 21,000. No significant anemia. INR therapeutic at 3. Hyponatremia at 129. Hypokalemia at 2.9. Patient was given 40 mill equivalents orally. Lactate was slightly up at 2.2. Bilirubin up at 1.8 with subtle transaminitis. CK had only 800. Lipase was normal. UA does show reds, whites and leuks with +[address] abdomen pelvis suggestive of diarrheal state in combination with an L5 subacute fracture which was favored versus an osteo-. Patient has no pain at the L5 level region. On his back he does have excoriation over the back of his gluteal folds in the rectum with skin that is warm and tender and erythematous likely consistent with cellulitis. Patient was covered with IV Rocephin. Several ulcers/wounds on his legs. UA does not suggest possible infection. Discussed with the hospitalist for further evaluation management treatment. Patient was given IV fluids IV Rocephin and updated bedside. Consults/Care Managements Discussions: Per [facility] Triage Nursing notes reviewed. Limited review of prior medical records performed Vital Signs: reviewed and remarkable for no significant abnormalities Differential diagnosis: Cellulitis, abscess, MRSA infection, DVT, necrotizing fasciitis, dermatitis, drug eruption, allergic reaction, as well as other pathologies. ER treatment provided: See below Diagnostics interpreted by me include EKG and cardiac monitoring as listed below: -Cardiac Monitoring: An order was placed for continuous cardiac monitoring. The monitor shows a rate of 98 with sinus rhythm. -ECG: none -Laboratory studies:Interpreted by me as stated above in MDM and shown below. Imaging studies: Xrays: As interpreted by me:none CTs show: CT abdomen pelvis per my preliminary interpretation shows markedly dilated loops of bowel CT abdomen pelvis as described above in MDM per radiology Procedures:none Critical Care: None Past Med/Surg History Medical History (Updated 03/26/23 @ 17:49 by Ivan Granda MD) Obstructive sleep apnea Urinary tract infection Cellulitis of lower extremity Arthritis of left hip Hip bursitis, left Diastolic heart failure CAD (coronary artery disease) s/p BMS to RCA in 1997 IBS (irritable bowel syndrome) Chronic obstructive pulmonary disease controlled w/ inhaler Sleep apnea CPAP- not currently using due to worries about safety after recall, to speak w/ about Osteoarthritis Diabetes mellitus, type 2 NIDDM- no longer taking metformin due to bowel issues per pt Hearing deficit [place] Hyperlipidemia Atrial fibrillation dx 1 year ago - on warfarin - follows dr. ruiz needs cardioversion and had cardioversion x 2 about a year ago 09/22/21- last visit w/ joseph about 6 mos ago, states is due for another visit Pilonidal cyst Depression Obesity Anemia Migraines Myocardial infarction 1997 Chronic GERD Hypertension Surgical History History of heart artery stent 1997 - [place] - 1 stent placed - hospital in [place], [place] reports had another cath early in [facility] - no stents/angioplasty now follows w/ dr ruiz- 6 mos since last visit History of cataract surgery right and left History of total hip arthroplasty RT History of total shoulder replacement BL History of esophagogastroduodenoscopy (EGD) H/O colonoscopy Hx laparoscopic cholecystectomy Family History Brother Family history of diabetes mellitus X2 Social History Smoking Status: Former smoker Tobacco Type: Cigarettes Second Hand Exposure: No; Do You Dip or Chew Tobacco: No; Hx Alcohol Use: No Hx Substance Use: No Preferred Language: Luxembourgish Communication Ability: Effective Marketing Information Analyst Required: No Beliefs That Will Affect Care: Sikh Sikh Beliefs: Anabaptist Current Living Situation: Alone Feels Safe at Home: Yes Assistive Devices: Walker Allergies Allergies Allergy/AdvReac Type Severity Reaction Status Date / Time No Known Allergies Allergy Verified 03/26/23 17:37 Home Meds Home Medications Medication Instructions Recorded Confirmed aspirin 81 mg tablet,delayed 81 mg PO DAILY 05/18/18 03/26/23 release doxazosin 1 mg tablet (Cardura) 1 mg PO HS 05/18/18 03/26/23 folic acid 1 mg tablet 1 mg PO BID 05/18/18 03/26/23 rosuvastatin 20 mg tablet 20 mg PO QPM 05/18/18 03/26/23 nitroglycerin 0.4 mg sublingual 0.4 mg sublingual .EVERY 5 MIN PRN 08/14/18 03/26/23 tablet (Nitrostat) Chest Pain cholecalciferol (vitamin D3) 50 50 mcg PO DAILY 09/04/19 03/26/23 mcg (2,000 unit) capsule (Vitamin D3) pantoprazole 40 mg tablet,delayed 40 mg PO DAILY 02/18/23 03/26/23 release warfarin 5 mg tablet 5 mg PO .HOLD THRU 03/27/23 02/18/23 03/26/23 acetaminophen 325 mg tablet 650 mg PO Q6 PRN Fever Or Pain 03/26/23 03/26/23 albuterol sulfate 90 mcg/actuation 2 inh inhalation Q6H PRN Wheezing 03/26/23 03/26/23 breath activated powder inhaler (ProAir RespiClick) clotrimazole 1 % topical cream 1 applic topical QS 03/26/23 03/26/23 coQ10 (ubiquinol) 200 mg capsule 400 mg PO DAILY 03/26/23 03/26/23 empagliflozin 25 mg tablet 25 mg PO DAILY 03/26/23 03/26/23 (Jardiance) furosemide 40 mg tablet (Lasix) 40 mg PO BID 03/26/23 03/26/23 melatonin 3 mg disintegrating 3 mg PO HS 03/26/23 03/26/23 tablet miconazole nitrate 2 % topical 1 applic EXT QS 03/26/23 03/26/23 powder (Desenex) multivitamin (Daily-Lala tablet) 1 tab PO DAILY 03/26/23 03/26/23 potassium chloride 10 mEq 10 meq PO TID 03/26/23 03/26/23 tablet,extended release(part/cryst) sennosides 8.6 mg tablet (Senokot) 17.2 mg PO DAILY 03/26/23 03/26/23 warfarin 6 mg tablet 6 mg PO HS 03/26/23 03/26/23 Previous Rx's Medication Instructions Recorded melatonin 3 mg tablet 3 mg PO HS #0 tabs 03/05/23 metoprolol tartrate 25 mg tablet 12.5 mg (1/2 x 25 mg) PO BID #0 03/05/23 tabs polyethylene glycol 3350 17 gram 17 g PO DAILY #0 ea 03/05/23 oral powder packet (Miralax) Results & Data (ED) Vital Signs Vital Signs - 24 hr 03/26/23 14:57 03/26/23 15:34 03/26/23 17:49 Temperature 36.5 C Temperature Source Oral Pulse Rate 88 102 H Pulse Rate [Apical] 99 H Respiratory Rate 22 22 Respiratory Effort / Characteristics Non-Labored Respiratory Depth Normal Blood Pressure 97/68 L Blood Pressure [Right Arm] 109/69 Blood Pressure Mean 77 Blood Pressure Mean [Right Arm] 82 Pulse Oximetry 98 Oxygen Delivery Method Room Air Sepsis Recent Fever Within 48 Hours No Sepsis New/Unexplained Change in Mental Status N/A Sepsis Action Taken by Nursing No Action Required Laboratory Data 03/26/23 15:40 03/26/23 15:40 Lab Results 03/26/23 03/26/23 03/26/23 Range/Units 15:40 16:54 17:09 WBC 21.08 H (4.8-10.8) K/ul RBC 4.99 (4.70-6.10) M/uL Hgb 15.3 (14.0-18.0) g/dl Hct 42.5 (42.0-52.0) % MCV 85.2 (80.0-100.0) fL MCH 30.7 (25.0-34.0) pg MCHC 36.0 (32.0-36.0) g/dL RDW Std Deviation 40.4 (36.4-46.3) fL RDW Coeff of [place] 13.0 (11.5-14.5) % Plt Count 361 (130-400) K/uL MPV 9.8 (9.4-12.4) fL Immature Gran % (Auto) 1.2 % Neut % (Auto) 82.2 % Lymph % (Auto) 4.5 % [place] % (Auto) 11.6 % Eos % (Auto) 0.2 % Baso % (Auto) 0.3 % Neut # (Auto) 17.32 H (1.40-6.50) K/uL Lymph # (Auto) 0.95 L (1.20-3.40) K/uL [place] # (Auto) 2.45 H (0.11-0.59) K/uL Eos # (Auto) 0.04 (0.00-0.50) K/uL Baso # (Auto) 0.07 (0.00-0.20) K/uL Immature Gran # (Auto) 0.25 H (0.01-0.20) K/uL PT 30.7 H (9.0-12.0) Seconds INR 3.0 H (0.9-1.1) Sodium 129 L (136-145) mmol/L Potassium 2.9 L (3.5-5.1) mmol/L Chloride 91 L (98-107) mmol/L Carbon Dioxide 24 (21-32) mmol/L Anion Gap 14 H (3-11) BUN 22 (6-23) mg/dl Creatinine 0.91 (0.6-1.4) mg/dl Est Cr Clr Drug Dosing 86.7 ml/min Est GFR ( Amer) 96.6 ml/min Est GFR (Non-Af Amer) 83.3 ml/min BUN/Creatinine Ratio 24.2 H (10-20) Glucose 134 H (70-99(Fasting)) mg/dl Lactate 2.2 H* (0.4-2.0) mmol/L Calcium 9.4 (8.6-10.3) mg/dl Magnesium 2.0 (1.7-2.4) mg/dl Total Bilirubin 1.8 H (0.2-1.0) mg/dl AST 81 H (13-39) U/L ALT 55 H (7-52) U/L Alkaline Phosphatase 62 (34-104) U/L Total Creatine Kinase 816 H (30-223) U/L Total Protein 6.9 (6.0-8.3) gm/dl Albumin 3.5 (3.4-5.0) gm/dl Globulin 3.4 (2.5-4.0) gm/dl Albumin/Globulin Ratio 1.0 (0.9-2) Lipase 7 L (11-82) U/L Urine Color Yellow Urine Appearance Clear (Clear) Urine pH 5.0 (4.5-7.5) Ur Specific [place] 1.016 (1.000-1.030) Urine Protein Trace H (Negative) Urine Glucose (UA) 3+ H (Negative) Urine Ketones Trace H (Negative) Urine Blood 3+ H (Negative) Urine Nitrite Negative (Negative) Urine Bilirubin Negative (Negative) Urine Urobilinogen Negative (Negative) Ur Leukocyte Esterase Trace H (Negative) Urine WBC (Auto) 5-10 H (0-5) /hpf Urine RBC (Auto) >30 H (0-4) /hpf U Hyaline Cast (Auto) 1-5 (0-5) /lpf U Epithel Cells (Auto) 5-10 H (0-5) /lpf Urine Bacteria (Auto) 3+ H (Negative) Administered Medications Sodium Chloride (Nss) 1,000 mls @ 999 mls/hr IV .Q1H1M ONE Stop: 03/26/23 17:55 Last Admin: 03/26/23 17:37 Dose: 999 mls/hr Documented By: [facility] Discontinued Medications Ceftriaxone Sodium (Rocephin) 2,000 mg in 50 mls @ 100 mls/hr IV NOW STA Stop: 03/26/23 17:23 Last Admin: 03/26/23 17:36 Dose: 100 mls/hr Documented By: [facility] Imaging Data Radiologist's Impression: Abdomen/Pelvis CT 03/26/23 15:[address] WITHOUT CONTRAST CT DOSE: 1479.25 mGy.cm HISTORY: gluteal rash/skin break down sent for imagining TECHNIQUE: Multiaxial CT images of the abdomen and pelvis were performed without contrast. A dose lowering technique was utilized adhering to the principles of ALARA. COMPARISON STUDY: Abdomen and pelvis CT 02/24/2023. FINDINGS: The lung bases are clear. No pneumoperitoneum. No pneumatosis. No acute fractures. There is a right total hip arthroplasty. Severe osteoarthritis within the left hip. There is a nondisplaced fracture through the anterior inferior osteophyte/endplate at L5. This is new compared to the prior study. Mild prevertebral edema at this location with a few punctate foci of prevertebral gas along the left side of the S1 level. This is best seen on image 224. There is also gas within the L5-S1 disc space. This prevertebral edema and gas could be due to the posttraumatic changes at this level. A developing discitis/osteomyelitis could also have a similar appearance but is considered less likely given the lack of erosive changes within the endplates at this time. No gluteal lumbosacral skin ulcerations or abscess identified. No soft tissue gas within the gluteal regions. Cholecystectomy. The unenhanced liver, spleen, adrenal glands, and pancreas unremarkable. No renal stones or hydronephrosis. No retroperitoneal lymphadenopathy. Calcified plaque within the normal caliber abdominal aorta. The bladder is decompressed by Estevez catheter. This likely accounts for the gas within the bladder lumen. Dilated and fluid-filled colon. No transition point to suggest an obstruction. The small bowel is normal and course and caliber. IMPRESSION: 1. No gluteal ulcerations or abscesses. 2. Distended and fluid-filled colon. This may represent a gastroenteritis/diarrheal illness. No transition point to suggest a large bowel obstruction at this time. 3. There is a nondisplaced fracture through the anterior inferior osteophyte/endplate at L5. This is new compared to the prior study. Mild prevertebral edema at this location with a few punctate foci of prevertebral gas along the left side of the S1 level. There is also gas within the L5-S1 disc space. This prevertebral edema and gas could be due to the posttraumatic changes at this level. A developing discitis/osteomyelitis could also have a similar appearance but is considered less likely given the lack of erosive changes within the endplates at this time. Follow-up lumbar spine MRI in one month is recommended for further evaluation.. ACT 112: Negative or not required by law. Electronically signed by: Beto Rodriguez M.D. 03/26/2023 4:42 PM Discharge Plan Visit Data Chief Complaint: Illness Stated Complaint: LEG PAIN & EDMEA, BLACK SPOTS ON BUTTOCKS ED Provider: Mohsen Ramos Discharge Problem: Leukocytosis, Cellulitis, Acute hypokalemia, Weakness Forms Stand Alone Forms: My [id number] Prescriptions Prescriptions: No Action aspirin 81 mg Tablet,Delayed Release (Dr/Ec) 81 mg PO DAILY rosuvastatin 20 mg Tablet 20 mg PO QPM folic acid 1 mg Tablet 1 mg PO BID doxazosin [Cardura] 1 mg Tablet 1 mg PO HS nitroglycerin [Nitrostat] 0.4 mg Tablet, Sublingual 0.4 mg sublingual .EVERY 5 MIN PRN (Reason: Chest Pain) Rx Instructions: x3 doses q 5mins for chest pain cholecalciferol (vitamin D3) [Vitamin D3] 50 mcg (2,000 unit) Capsule 50 mcg PO DAILY warfarin 5 mg tablet 5 mg PO .HOLD THRU 03/27/23 Rx Instructions: take 2 tablets in evening on tuesday,tuesday, ...other day take 1 tablet in evening pantoprazole 40 mg tablet,delayed release (DR/EC) 40 mg PO DAILY metoprolol tartrate 25 mg Tablet 12.5 mg PO BID Qty: 0 0RF polyethylene glycol 3350 [Miralax] 17 gram Powder In Packet 17 g PO DAILY Qty: 0 0RF melatonin 3 mg Tablet 3 mg PO HS Qty: 0 0RF melatonin 3 mg Tablet,Disintegrating 3 mg PO HS potassium chloride 10 mEq tablet,ER particles/crystals 10 meq PO TID Rx Instructions: x 3 days...ordered 03/25/23 sennosides [Senokot] 8.6 mg tablet 17.2 mg PO DAILY warfarin 6 mg tablet 6 mg PO HS Rx Instructions: take on 03/25/23 and 03/26/23 furosemide [Lasix] 40 mg tablet 40 mg PO BID Rx Instructions: daily at 0800 and 2000 Jardiance 25 mg tablet 25 mg PO DAILY miconazole nitrate [Desenex] 2 % powder 1 applic EXT QS Rx Instructions: apply to affected area every shift for irritation multivitamin [Daily-Lala] Tablet 1 tab PO DAILY coQ10 (ubiquinol) 200 mg Capsule 400 mg PO DAILY Rx Instructions: using softgel clotrimazole 1 % Cream 1 applic TOPICAL QS Rx Instructions: apply to groin every shift for fungal excoriation acetaminophen 325 mg Tablet 650 mg PO Q6 MDD 3g PRN (Reason: Fever Or Pain) ProAir RespiClick 90 mcg/actuation Aerosol Powdr Breath Activated 2 inh INHALATION Q6H PRN (Reason: Wheezing) Referrals Referrals: Ta Ruiz DO [Primary Care Provider] - Discharge Problem: Leukocytosis Qualifiers: Leukocytosis type: unspecified Qualified Code(s): D72.829 - Elevated white blood cell count, unspecified Cellulitis Qualifiers: Site of cellulitis: unspecified site Qualified Code(s): L03.90 - Cellulitis, unspecified
[2023-03-26 15:57] LABS: Basophils # (auto) 0.07 K/uL (0.00-0.20); Basophils % (auto) 0.3 %; Eosinophils # (auto) 0.04 K/uL (0.00-0.50); Eosinophils % (auto) 0.2 %; Hematocrit (blood only) 42.5 % (42.0-52.0); Hemoglobin 15.3 g/dl (14.0-18.0); Immature Granulocytes # (auto) 0.25 K/uL (0.01-0.20); Immature Granulocytes % (auto) 1.2 %; Lymphocytes # (auto) 0.95 K/uL (1.20-3.40); Lymphocytes % (auto) 4.5 %; Mean Corpuscular Hemoglobin 30.7 pg (25.0-34.0); Mean Corpuscular Volume 85.2 fL (80.0-100.0); Mean Platelet Volume 9.8 fL (9.4-12.4); Monocytes # (auto) 2.45 K/uL (0.11-0.59); Monocytes % (auto) 11.6 %; Neutrophils # (auto) 17.32 K/uL (1.40-6.50); Neutrophils % (auto) 82.2 %; Platelet Count 361 K/uL (130-400); RDW Standard Deviation 40.4 fL (36.4-46.3); Red Blood Count 4.99 M/uL (4.70-6.10); White Blood Count 21.08 K/ul (4.8-10.8)
[2023-03-26 16:14] LABS: Albumin Level 3.5 gm/dl (3.4-5.0); BUN Creatinine Ratio 24.2 (10-20); Bilirubin,Total 1.8 mg/dl (0.2-1.0); Calcium 9.4 mg/dl (8.6-10.3); Creatinine Clr Calc Pharmacy 86.7 ml/min; Est GFR (African American) 96.6 ml/min; Est GFR (Non-African American) 83.3 ml/min; Globulin 3.4 gm/dl (2.5-4.0); Potassium 2.9 mmol/L (3.5-5.1); Total Protein 6.9 gm/dl (6.0-8.3)
--- NOTE | 2023-03-26 16:45 | CT Scan Report ---
ABDOMEN AND PELVIS CT WITHOUT CONTRAST CT DOSE: 1479.25 mGy.cm HISTORY: gluteal rash/skin break down sent for imagining TECHNIQUE: Multiaxial CT images of the abdomen and pelvis were performed without contrast. A dose lo wering technique was utilized adhering to the principles of ALARA. COMPARISON STUDY: Abdomen and pelvis CT 02/24/2023. FINDINGS: The lung bases are clear. No pneumoperitoneum. No pneumatosis. No acute fractures. There is a right total hip arthroplasty. Severe osteoarthritis within the left hip. There is a nondisplaced f racture through the anterior inferior osteophyte/endplate at L5. This is new compared to the prior st udy. Mild prevertebral edema at this location with a few punctate foci of prevertebral gas along the left side of the S1 level. This is best seen on image 224. There is also gas within the L5-S1 disc sp lo. This prevertebral edema and gas could be due to the posttraumatic changes at this level. A devel oping discitis/osteomyelitis could also have a similar appearance but is considered less likely given the lack of erosive changes within the endplates at this time. No gluteal lumbosacral skin ulceratio ns or abscess identified. No soft tissue gas within the gluteal regions. Cholecystectomy. The unenhan leela liver, spleen, adrenal glands, and pancreas unremarkable. No renal stones or hydronephrosis. No r etroperitoneal lymphadenopathy. Calcified plaque within the normal caliber abdominal aorta. The bladd er is decompressed by Estevez catheter. This likely accounts for the gas within the bladder lumen. Dila sher and fluid-filled colon. No transition point to suggest an obstruction. The small bowel is normal and course and caliber. IMPRESSION: 1. No gluteal ulcerations or abscesses. 2. Distended and fluid-filled colon. This may represent a gastroenteritis/diarrheal illness. No trans ition point to suggest a large bowel obstruction at this time. 3. There is a nondisplaced fracture through the anterior inferior osteophyte/endplate at L5. This is new compared to the prior study. Mild prevertebral edema at this location with a few punctate foci of prevertebral gas along the left side of the S1 level. There is also gas within the L5-S1 disc space. This prevertebral edema and gas could be due to the posttraumatic changes at this level. A developin g discitis/osteomyelitis could also have a similar appearance but is considered less likely given the lack of erosive changes within the endplates at this time. Follow-up lumbar spine MRI in one month i s recommended for further evaluation.. ACT 112: Negative or not required by law. Electronically signed by: Beto Rodriguez M.D. 03/26/2023 4:42 PM
[2023-03-26 17:16] LABS: Appearance Urine Clear (Clear); Bacteria Urine Automated 3+ (Negative); Bilirubin Urine Negative (Negative); Blood Urine 3+ (Negative); Color Urine Yellow; Glucose Urine UA 3+ (Negative); Ketones Urine Trace (Negative); Leukocyte Esterase Urine Trace (Negative); Nitrite Urine Negative (Negative); Protein Urine Trace (Negative); RBC Urine Automated >30 /hpf (0-4); Specific Gravity Urine 1.016 (1.000-1.030); Urobilinogen Urine Negative (Negative)
[2023-03-26 17:25] LABS: Prothrombin Time 30.7 Seconds (9.0-12.0)
[2023-03-26] MEDS ORDERED: PLASMA-LYTE A 250 ML IV ONE (17:35)
[2023-03-26] MEDS: cefTRIAXone SODIUM 2,000 MG/50 ML BAG IV STA (17:36)
[2023-03-26] MEDS: SODIUM CHLORIDE 0.9% 1,000 ML IV ONE (17:37)
[2023-03-26] MEDS ORDERED: VANCOMYCIN CONSULT ACTIVE PRN (17:44)
--- NOTE | 2023-03-26 17:54 | History & Physical Report ---
Date of Service March 26, 2023 Assessment & Plan (1) Sepsis: Plan: Sepsis, multiple sources of potential infection Patient presents with a leukocytosis with neutrophilic predominance and left shift, borderline hypotension, GAGAN, elevated lactate, and tachycardia. He reports he has had fevers for the last 2 days Prior to hospitalist assessment he had reported some abdominal pain, 1 episode of diarrhea morning of admission. He denies dysuria at time of admission. Denies CP. Denies cough. Denies other infectious sx. Denies dysuria. UTI is infected appearing. Lower extremities with bilateral venous stasis dermatitis changes and fluid overload, asymmetric erythema/warmth/tenderness and erosion of the left lower extremity suspicious for cellulitis. See HPI photos, marked with marking pen. In addition patient has excoriated superficial ulceration and erythema of the skin of the buttocks and lower back. No deep infection or evidence of Mane's is noted on CT. He has no scrotal or proximal thigh tenderness or crepitus. He has a history of MRSA cellulitis. CT shows L5 fracture as noted below with suspected acute posttraumatic changes, infectious etiology less likely with lack of erosive changes. He is covered with vanco for cellulitis and hx of MRSA as noted 1 day of diarrheal illness, reports this was not a completely liquid stool but was loose and patient has had significant abdominal distention. Is at risk for C. difficile with recent antibiotic use and has significant gaseous distention of the colon without megacolon on CT. Stool bio fire is pending. Continue empiric ceftriaxone/vancomycin. No history of pseudomonal or ESBL infection, +hx MRSA. Follow urine cultures, blood cultures, stool PCR. Patient treated to sepsis guidelines by ideal body weight with total 2250 cc of fluid ordered, actual body weight deferred due to history of volume overload and edema. Repeat lactate pending. Patient does have significant bilateral lower extremity edema and venous stasis changes. While intravascularly depleted, hypokalemic acutely in the setting of infection has increased total volume free water and will likely need to transition to diuresis after initial sepsis treatment and stabilization. If hemodynamics, lactate and otherwise improved resume Lasix 40 mg IV twice daily 03/27 (2) Cellulitis: Plan: As noted. CRP trended (3) Urinary tract infection: Plan: Follow UCx, antibiotics as noted (4) L5 vertebral fracture: Plan: L5 fracture CT: "There is a nondisplaced fracture through the anterior inferior osteophyte/endplate at L5. This is new compared to the prior study. Mild prevertebral edema at this location with a few punctate foci of prevertebral gas along the left side of the S1 level. There is also gas within the L5-S1 disc space. This prevertebral edema and gas could be due to the posttraumatic changes at this level. A developing discitis/osteomyelitis could also have a similar appearance but is considered less likely given the lack of erosive changes within the endplates at this time. Follow-up lumbar spine MRI in one month is recommended for further evaluation." Patient is covered with antibiotics as above Repeat MRI in 1 months. If patient has gram-positive bacteremia or worsening back pain, then order MRI lumbar spine at that time (5) Abdominal distension: Plan: Abdominal discomfort, distention CTA/P: No gluteal ulcerations or abscesses. Distended and fluid-filled colon suspicious for gastroenteritis/diarrheal illness without transition point to suggest small bowel obstruction. L5 fracture as noted below. Patient does have a leukocytosis with neutrophilic predominance and granulocyte left shift. Left shift is inconsistent with demargination, given ill appearance will cover with Rocephin/vancomycin on admission empirically. Stool bio fire/C. difficile pending Transaminitis is present with volume contraction, s/p baron, no hepatic pathology as seen on CT Potassium is low in the setting of diarrheal illness. Oral repletion was ordered. IV repletion ordered on admission. Magnesium pending (6) DVT (deep venous thrombosis): Plan: History of left lower extremity DVT Continue warfarin INR goal 23 - INR 3.0 INR daily - Continue warfarin (7) Persistent atrial fibrillation: Plan: Persistent atrial fibrillation Previously on Tikosyn this was discontinued due to ventricular ectopy Continue metoprolol 12.5 mg twice daily, can titrate as needed (8) Heart disease: Plan: CAD With history of PCI Continue metoprolol, aspirin, rosuvastatin - No chest pain on admission. EKG pending Last echo with EF 55-59% 2018 (9) Obstructive sleep apnea: Plan: MAMI CPAP nightly (10) Diabetes: Plan: Type II DM Last A1c 7.2% Continue weight-based basal bolus Goal BSG [id number] DM2/heart healthy diet (11) Morbid obesity with BMI of 40.0-44.9, adult: Plan: Morbid obesity BMI 41 Self-care deficit With progressive decline over the last year, patient was previously discharged to SNF with a hope of transitioning to assisted living after this Psychiatry saw at prior hospitalization and does retain decision-making capacity Plan DVT prophylaxis: Anticoagulated Disposition: CODE STATUS: Full Surrogate decision maker would be patient's daughter Tricia available at [phone] History of Present Illness Primary Care Provider: Ta Chi DO Isma is a 72-year-old male with a past medical history of medication noncompliance, left lower extremity DVT, A-fib, CAD, MAMI, DM 2, and cognitive decline who was recently admitted from 02/18/2023 - 03/03/2023 and discharged to SNF. Ideally due to chronic decline patient was [facility] following acute rehab. He Zachariah presents to the ER 03/26/2023 with black spots overlying his buttocks which have occurred intermittently in the previous few months but currently which are very painful for him. He has chronic lower extremity swelling which is unchanged. last dc weight 123.5kg. Dry weight ~123- 126 kg by chart review. Admit weight 105.9kg. ?accuracy --> daily standing weight Patient seen at the bedside. He reports for last 2 to 3 days he has felt generally unwell and has had intermittent fevers. He has not taken anything for this. He thinks he had some abdominal pain earlier, none at time of his admission. He denies chest pain. He denies shortness of breath, cough, sputum production. He reports his legs hurt, has not sure how long these have been worse for. He reports his pain is greatest at his buttocks where his skin is excoriated. He has had some diarrhea, reports loose bowel movement this morning. Thinks this started today and denies diarrhea in the last 2 to 3 days. He feels his legs are always swollen is not sure if these have changed recently. Denies nausea/vomiting. Feels fatigued and dehydrated. Medical History: Reviewed Medications: Reviewed Surgical History: Reviewed Family history: Reviewed Allergies: Reviewed Social History: Reviewed Code Status: Full Addendum: Was able to contact patient's daughter by phone. Full update given on plan of care to which she is in agreement. She notes that he has had resistant infection in the past including MRSA. She is aware that he has been generally unwell for the last few days and had some confusion/hallucinations which while he has had some chronic cognitive decline is somewhat atypical for him. Otherwise no questions and no additional collateral at time of call. Phone number added for updates to [facility] Allergies Allergy/AdvReac Type Severity Reaction Status Date / Time No Known Allergies Allergy Verified 03/26/23 17:37 Home Medications Medication Instructions Recorded Confirmed Type aspirin 81 mg tablet,delayed 81 mg PO DAILY 05/18/18 03/26/23 History release doxazosin 1 mg tablet (Cardura) 1 mg PO HS 05/18/18 03/26/23 History folic acid 1 mg tablet 1 mg PO BID 05/18/18 03/26/23 History rosuvastatin 20 mg tablet 20 mg PO QPM 05/18/18 03/26/23 History nitroglycerin 0.4 mg sublingual 0.4 mg sublingual .EVERY 5 MIN PRN 08/14/18 03/26/23 History tablet (Nitrostat) Chest Pain cholecalciferol (vitamin D3) 50 50 mcg PO DAILY 09/04/19 03/26/23 History mcg (2,000 unit) capsule (Vitamin D3) pantoprazole 40 mg tablet,delayed 40 mg PO DAILY 02/18/23 03/26/23 History release warfarin 5 mg tablet 5 mg PO .HOLD THRU 03/27/23 02/18/23 03/26/23 History melatonin 3 mg tablet 3 mg PO HS #0 tabs 03/05/23 03/26/23 Rx metoprolol tartrate 25 mg tablet 12.5 mg (1/2 x 25 mg) PO BID #0 03/05/23 03/26/23 Rx tabs polyethylene glycol 3350 17 gram 17 g PO DAILY #0 ea 03/05/23 03/26/23 Rx oral powder packet (Miralax) acetaminophen 325 mg tablet 650 mg PO Q6 PRN Fever Or Pain 03/26/23 03/26/23 History albuterol sulfate 90 mcg/actuation 2 inh inhalation Q6H PRN Wheezing 03/26/23 03/26/23 History breath activated powder inhaler (ProAir RespiClick) clotrimazole 1 % topical cream 1 applic topical QS 03/26/23 03/26/23 History coQ10 (ubiquinol) 200 mg capsule 400 mg PO DAILY 03/26/23 03/26/23 History empagliflozin 25 mg tablet 25 mg PO DAILY 03/26/23 03/26/23 History (Jardiance) furosemide 40 mg tablet (Lasix) 40 mg PO BID 03/26/23 03/26/23 History melatonin 3 mg disintegrating 3 mg PO HS 03/26/23 03/26/23 History tablet miconazole nitrate 2 % topical 1 applic EXT QS 03/26/23 03/26/23 History powder (Desenex) multivitamin (Daily-Lala tablet) 1 tab PO DAILY 03/26/23 03/26/23 History potassium chloride 10 mEq 10 meq PO TID 03/26/23 03/26/23 History tablet,extended release(part/cryst) sennosides 8.6 mg tablet (Senokot) 17.2 mg PO DAILY 03/26/23 03/26/23 History warfarin 6 mg tablet 6 mg PO HS 03/26/23 03/26/23 History Past Med/Surg History Medical History Obstructive sleep apnea Urinary tract infection Cellulitis of lower extremity Arthritis of left hip Hip bursitis, left Diastolic heart failure CAD (coronary artery disease) s/p BMS to RCA in 1997 IBS (irritable bowel syndrome) Chronic obstructive pulmonary disease controlled w/ inhaler Sleep apnea CPAP- not currently using due to worries about safety after recall, to speak w/ about Osteoarthritis Diabetes mellitus, type 2 NIDDM- no longer taking metformin due to bowel issues per pt Hearing deficit BL [place] Hyperlipidemia Atrial fibrillation dx 1 year ago - on warfarin - follows dr. chi needs cardioversion and had cardioversion x 2 about a year ago 09/22/21- last visit w/ joseph about 6 mos ago, states is due for another visit Pilonidal cyst Depression Obesity Anemia Migraines Myocardial infarction 1997 Chronic GERD Hypertension Surgical History History of heart artery stent 1997 - [place] - 1 stent placed - hospital in [place], [place] reports had another cath early in [place] - no stents/angioplasty now follows w/ dr [facility]- 6 mos since last visit History of cataract surgery right and left History of total hip arthroplasty RT History of total shoulder replacement BL History of esophagogastroduodenoscopy (EGD) H/O colonoscopy Hx laparoscopic cholecystectomy Family History Brother Family history of diabetes mellitus X2 Social History Smoking Status: Former smoker Tobacco Type: Cigarettes Second Hand Exposure: No; Do You Dip or Chew Tobacco: No; Hx Alcohol Use: No Hx Substance Use: No Preferred Language: Arabic Communication Ability: Effective Radiation Therapy Technologist Required: No Beliefs That Will Affect Care: Anglican Anglican Beliefs: L[employer] Day Current Living Situation: Alone Feels Safe at Home: Yes Assistive Devices: Walker Physical Exam 2 Physical Exam: General: A&Ox3. NAD. Cooperative. HEENT: Atraumatic, normocephalic. MM dry/cracked Pulm: Distant but grossly CTAB A&P. -wheezes, -rales, -rhonchi. Symmetrical chest rise. No increased work of breathing. No respiratory distress. Cardiac: regular, tachycardic, -mrg. Radial pulses intact and symmetrical. Abdominal: Tympanitic, softly distended without pain on light or deep palpation or rebound. No guarding. Extremities: With bilateral chronic venous stasis changes, and erosions with asymmetric erythema, warmth, and tenderness of the left compared to the right. See photos below. Endorses sensation is intact to soft touch in the hands and feet bilaterally. Able to wiggle toes bilaterally. Sap Technical Architect strength is intact bilaterally. Denies saddle anesthesia. Back: No midline spinal tenderness to palpation including at the lumbar spine. Below this patient does have excoriations and extremely tender skin erosions as pictured. LEFT: RIGHT: Results & Data Results & Data Vital Signs (Past 12 Hours) Vital Signs Temp Pulse Pulse Resp BP BP Pulse Ox 03/26/23 15:34 99 H 22 109/69 03/26/23 14:57 36.5 C 88 22 97/68 L 98 O2 Del Method 03/26/23 15:34 03/26/23 14:57 Room Air PG Care Time/CCT Total # of Minutes Spent Total Time Spent with Patient: Total time spent is greater than 50% in coordination of care (as documented) at patient's floor/unit and/or counseling patient: Coding Level of Care Code 00804 INT INP/OBS CARE 3/75MIN Diagnoses Sepsis A41.9 Sepsis acute organ dysfunction status: with acute organ dysfunction Severe sepsis acute organ dysfunction type: unspecified Severe sepsis shock status: without septic shock Cellulitis L03.90 Urinary tract infection N39.0 L5 vertebral fracture S32.059A Abdominal distension R14.0 DVT (deep venous thrombosis) I82.409 Affected thrombotic vein of extremity: unspecified vein of extremity Chronicity: acute DVT location: lower extremity Laterality: unspecified laterality Persistent atrial fibrillation I48.1 Heart disease I51.9 Obstructive sleep apnea G47.33 Diabetes E11.9 Morbid obesity with BMI of 40.0-44.9, adult E66.01; Z68.41 (1) Sepsis Sepsis acute organ dysfunction status: with acute organ dysfunction Severe sepsis acute organ dysfunction type: unspecified Severe sepsis shock status: w ithout septic shock (6) DVT (deep venous thrombosis) Affected thrombotic vein of extremity: unspecified vein of extremity C hronicity: acute DVT location: lower extremity Laterality: unspecified laterality Qualified Code(s): I82.409 - Acute embolism and thrombosis of unspecified deep veins of unspecified lower extremity
[2023-03-26] MEDS ORDERED: GLUCAGON FOR INJ 1 MG VIAL SQ PRN (18:03)
[2023-03-26] MEDS ORDERED: CARBOHYDRATES FOR HYPOGLYCEMIA PO PRN (18:03)
[2023-03-26] MEDS ORDERED: DEXTROSE 50% 50 ML SYRINGE IV PRN (18:03)
[2023-03-26] MEDS ORDERED: GLUCOSE 10 TAB/TUBE PO PRN (18:03)
[2023-03-26] MEDS ORDERED: GLUCOSE 40% GEL 15 GM TUBE PO PRN (18:03)
[2023-03-26] MEDS: POTASSIUM CHLORIDE CRTAB 20 MEQ TABCR PO STA (18:15)
[2023-03-26] MEDS ORDERED: VANCOMYCIN HCL 1,500 MG in SODIUM CHLORIDE 0.9% 500 ML IV SCH (19:00)
[2023-03-26 19:16] LABS: C Reactive Protein 14.64 mg/dl (0-0.5); Calcium 8.7 mg/dl (8.6-10.3); Creatinine Clr Calc Pharmacy 86.7 ml/min; Est GFR (African American) 96.6 ml/min; Est GFR (Non-African American) 83.3 ml/min; Potassium 2.8 mmol/L (3.5-5.1)
[2023-03-26] MEDS ORDERED: NITROGLYCERIN SL 0.4 MG/TAB TAB SL PRN (19:35)
[2023-03-26] MEDS ORDERED: ALBUTEROL HFA 8 GM INHALER INH PRN (19:46)
[2023-03-26] MEDS: VANCOMYCIN HCL 2,000 MG in SODIUM CHLORIDE 0.9% 500 ML IV ONE (19:57)
[2023-03-26] MEDS: PLASMA-LYTE A 1,000 ML IV ONE (19:57)
[2023-03-26] MEDS: POTASSIUM CHLORIDE / WTR 10 MEQ/100 ML PLCT IV SCH (20:02)
[2023-03-26] MEDS: LANTUS PER UNIT CHARGE SQ SCH (20:17)
[2023-03-26] MEDS ORDERED: MELATONIN 3 MG PO SCH (21:00)
[2023-03-26] MEDS: POTASSIUM CHLORIDE 10 MEQ TABCR PO SCH (21:08)
[2023-03-26] MEDS: METOPROLOL TARTRATE 25 MG TAB PO SCH (21:08)
[2023-03-26] MEDS: ROSUVASTATIN CALCIUM 20 MG TAB PO SCH (21:08)
[2023-03-26] MEDS: INSULIN ASPART PER UNIT CHARGE SC SCH (21:11)
[2023-03-26] MEDS: MELATONIN 3 MG TAB PO SCH (21:11)
[2023-03-26] MEDS: DOXAZOSIN MESYLATE 1 MG TAB PO SCH (21:11)
[2023-03-26] MEDS: FOLIC ACID 1 MG TAB PO SCH (21:11)
--- NOTE | 2023-03-26 22:24 | CT Scan Report ---
Exam(s): CT CHEST Without Contrast EXAM: CT Chest Without Intravenous Contrast CLINICAL HISTORY: Reason for exam: sepsis. TECHNIQUE: Axial computed tomography images of the chest without intravenous contrast. Automated exposure control was utilized for the study. A dose lowering technique was utilized adhering to the principles of ALARA. COMPARISON: No relevant prior studies available. FINDINGS: Lungs: Unremarkable. No mass. No consolidation. Pleural space: Unremarkable. No focal infiltrate, pleural effusion, or pneumothorax. Heart: Unremarkable. No cardiomegaly. No significant pericardial effusion. No significant coronary artery calcifications. Bones/joints: Bilateral shoulder arthroplasties. Degenerative changes of the spine. No acute fracture. No dislocation. Soft tissues: Unremarkable. Vasculature: Atherosclerotic changes of the aorta. No thoracic aortic aneurysm. Lymph nodes: Unremarkable. No enlarged lymph nodes. Gallbladder and bile ducts: Cholecystectomy. IMPRESSION: 1. No focal infiltrate, pleural effusion, or pneumothorax. 2. Cholecystectomy. Electronically signed by: Thom Small MD 03/26/23 22:23 PM
[2023-03-26 23:03] LABS: Adenovirus F 40/41 PCR Not Detected (NotDetected); Astrovirus PCR Not Detected (NotDetected); Campylobacter PCR Not Detected (NotDetected); Cryptosporidium PCR Not Detected (NotDetected); Cyclospora cayetanensis PCR Not Detected (NotDetected); Entamoeba histolytica PCR Not Detected (NotDetected); Enteroaggregative E.coli(EAEC) Not Detected (NotDetected); Enteropathogenic E.coli (EPEC) Not Detected (NotDetected); Enterotoxigenic E.coli (ETEC) Not Detected (NotDetected); Giardia lamblia PCR Not Detected (NotDetected); Norovirus GI/GII PCR Not Detected (NotDetected); Plesiomonas shigelloides PCR Not Detected (NotDetected); Rotavirus A PCR Not Detected (NotDetected); Salmonella PCR Not Detected (NotDetected); Sapovirus PCR Not Detected (NotDetected); Shiga-like Toxin E.coli (STEC) Not Detected (NotDetected); Shigella/Enteroinvasive E.coli Not Detected (NotDetected); Vibrio cholerae PCR Not Detected (NotDetected); Vibrio species PCR Not Detected (NotDetected); Yersinia enterocolitica PCR Not Detected (NotDetected)
[2023-03-27] MEDS: CLOTRIMAZOLE 1% CR 15 GM TUBE TOP SCH (00:16)
[2023-03-27] MEDS: MICONAZOLE NITRATE POWDER 85 GM EXT SCH (00:16)
[2023-03-27 01:12] LABS: BUN Creatinine Ratio 23.4 (10-20); Calcium 8.6 mg/dl (8.6-10.3); Creatinine Clr Calc Pharmacy 109.5 ml/min; Est GFR (African American) 104.3 ml/min
[2023-03-27] MEDS: POTASSIUM CHLORIDE CRTAB 20 MEQ TABCR PO ONE ×2 (02:14→06:22)
[2023-03-27] MEDS: POTASSIUM CHLORIDE / WTR 10 MEQ/100 ML PLCT IV SCH (02:14)
[2023-03-27 05:55] LABS: Basophils # (auto) 0.07 K/uL (0.00-0.20); Basophils % (auto) 0.5 %; Eosinophils # (auto) 0.14 K/uL (0.00-0.50); Eosinophils % (auto) 0.9 %; Hematocrit (blood only) 40.5 % (42.0-52.0); Hemoglobin 14.1 g/dl (14.0-18.0); Immature Granulocytes # (auto) 0.15 K/uL (0.01-0.20); Lymphocytes # (auto) 0.95 K/uL (1.20-3.40); Lymphocytes % (auto) 6.3 %; Mean Corpuscular Hemoglobin 30.8 pg (25.0-34.0); Mean Corpuscular Hgb Conc 34.8 g/dL (32.0-36.0); Mean Corpuscular Volume 88.4 fL (80.0-100.0); Monocytes # (auto) 1.69 K/uL (0.11-0.59); Monocytes % (auto) 11.2 %; Neutrophils # (auto) 12.07 K/uL (1.40-6.50); Neutrophils % (auto) 80.1 %; Platelet Count 365 K/uL (130-400); RDW Coefficient of Variation 13.5 % (11.5-14.5); RDW Standard Deviation 43.7 fL (36.4-46.3); Red Blood Count 4.58 M/uL (4.70-6.10); White Blood Count 15.07 K/ul (4.8-10.8)
[2023-03-27] MEDS: VANCOMYCIN HCL 1,000 MG in SODIUM CHLORIDE 0.9% 250 ML IV SCH (06:02)
[2023-03-27 06:08] LABS: Albumin Level 3.1 gm/dl (3.4-5.0); Bilirubin,Total 1.2 mg/dl (0.2-1.0); C Reactive Protein 15.99 mg/dl (0-0.5); Calcium 8.9 mg/dl (8.6-10.3); Creatinine Clr Calc Pharmacy 105.5 ml/min; Est GFR (African American) 102.7 ml/min; Est GFR (Non-African American) 88.6 ml/min; Globulin 3.1 gm/dl (2.5-4.0); Potassium 3.3 mmol/L (3.5-5.1); Total Protein 6.2 gm/dl (6.0-8.3)
[2023-03-27 06:29] LABS: INR 2.9 (0.9-1.1); Prothrombin Time 29.7 Seconds (9.0-12.0)
[2023-03-27] MEDS ORDERED: VANCOMYCIN HCL 1,250 MG in SODIUM CHLORIDE 0.9% 250 ML IV SCH ×2 (07:00→14:00)
--- NOTE | 2023-03-27 07:06 | Electrocardiogram Report ---
Test Reason : Blood Pressure : / mmHG Vent. Rate : 099 BPM Atrial Rate : 099 BPM P-R Int : 170 ms QRS Dur : 064 ms QT Int : 394 ms P-R-T Axes : 032 077 062 degrees QTc Int : 505 ms Normal sinus rhythm Low voltage QRS Nonspecific ST abnormality Abnormal ECG When compared with ECG of 19-FEB-2023 05:54, Premature ventricular complexes are no longer Present Nonspecific T wave abnormality now evident in Lateral leads Confirmed by Kristopher Rocha ([id number]) on 03/27/2023 7:05:56 AM Referred By: REFERRED SELF Confirmed By:Dami Rocha
--- NOTE | 2023-03-27 07:36 | Hospitalist Progress Note ---
Date of Service March 27, 2023 Assessment & Plan (1) Sepsis: (2) Cellulitis: (3) L5 vertebral fracture: (4) Diabetes: (5) Urinary tract infection: (6) CAD (coronary artery disease): Plan 1) Sepsis: Sepsis, multiple sources of potential infection Patient presented with a leukocytosis with neutrophilic predominance and left shift, borderline hypotension, elevated lactate, and tachycardia. He reported he has had fevers for the last 2 days. Prior to hospitalist assessment he had reported some abdominal pain, 1 episode of diarrhea morning of admission. He denies dysuria at time of admission. Denies CP. Denies cough. Denies other infectious Sx. Lower extremities with bilateral venous stasis dermatitis changes and fluid overload, asymmetric erythema/warmth/tenderness and erosion of the left lower extremity suspicious for cellulitis. See HPI photos, marked with marking pen. - In addition patient has excoriated superficial ulceration and erythema of the skin of the buttocks and lower back. No deep infection or evidence of Mane's is noted on CT. He has no scrotal or proximal thigh tenderness or crepitus. He has a history of MRSA cellulitis. CT shows L5 fracture as noted below with suspected acute posttraumatic changes, infectious etiology less likely with lack of erosive changes. Now covered with daptomycin for cellulitis and hx of MRSA 1 day of diarrheal illness/loose stool, abdominal distention; C. difficile neg, (recent antibiotic use, significant colon distention) Continue empiric ceftriaxone/daptomycin (replaced vancomycin). No Hx of pseudomonal or ESBL infection, +hx MRSA. - Patient treated to sepsis guidelines by ideal body weight with total 2250 cc of fluid ordered, actual body weight deferred due to history of volume overload and edema. Repeat lactate pending. Patient has significant bilateral lower extremity edema and venous stasis changes. While intravascularly depleted, hypokalemic acutely in the setting of infection has increased total volume free water and will likely need to transition to diuresis after initial sepsis treatment and stabilization. If hemodynamics, lactate and otherwise improved resume Lasix 40 mg IV twice daily 03/27 (2) Cellulitis: As noted. CRP trended: CRP, 16.0 <-- 14.6 - MRSA nares pending - Daptomycin instead of vancomycin (due to pharmacist's concerns for reaching therapeutic levels secondary to obesity) (3) Urinary tract infection: - admission UA: Ur blood, 3+; Ur LE, trace; Ur WBC, 5-10; Ur Samuel, 3+; Ur RBC, >30; Ur Ep Cell, 5-10 UCx: gram neg bacilli, antibiogram sensitivity pending, antibiotics as noted (4) L5 vertebral fracture: L5 fracture CT: "There is a nondisplaced fracture through the anterior inferior osteophyte/endplate at L5. This is new compared to the prior study. Mild prevertebral edema at this location with a few punctate foci of prevertebral gas along the left side of the S1 level. There is also gas within the L5-S1 disc space. This prevertebral edema and gas could be due to the posttraumatic changes at this level. A developing discitis/osteomyelitis could also have a similar appearance but is considered less likely given the lack of erosive changes within the endplates at this time. Follow-up lumbar spine MRI in one month is recommended for further evaluation." Patient is covered with antibiotics as above Repeat MRI in 1 month. If patient has gram-positive bacteremia or worsening back pain, then order F/U MRI-lumbar spine (5) Abdominal distension: Abdominal discomfort, distention CTAP: No gluteal ulcerations or abscesses. Distended and fluid-filled colon initially suspicious for gastroenteritis/diarrheal illness without transition point to suggest small bowel obstruction. L5 fracture as noted. Patient does have a leukocytosis (WBC, 21.1) with neutrophilic predominance, granulocyte left shift. Left shift inconsistent with demargination, ill appearance; Covered with Rocephin/vancomycin initially --> Transitioned to Rocephin/daptomycin Stool bio fire/C. difficile: negative, C. diff, negative Transaminitis present with volume contraction, s/p baron, no hepatic pathology as seen on CT K, 3.3 <-- 2.8; Potassium low, setting of diarrheal illness. Oral given, 40 mEqs x 3. IV repletion given, 10 mEqs x 5. - Mg, 2.0 - trend BMPs (6) DVT (deep venous thrombosis): History of left lower extremity DVT Continue warfarin INR goal 23 - INR 3.0 INR daily - Continue warfarin (7) Persistent atrial fibrillation: Persistent atrial fibrillation Previously on Tikosyn this was discontinued due to ventricular ectopy Continue metoprolol 12.5 mg twice daily, can titrate as needed (8) Heart disease: CAD With history of PCI Continue metoprolol, aspirin, rosuvastatin - No chest pain on admission. EKG pending Last echo with EF 55-59% 2018 (9) Obstructive sleep apnea: MAMI CPAP nightly (10) Diabetes (T2DM): Last A1c 7.2% Continue weight-based basal bolus Goal BSG 188868 DM2/heart healthy diet (11) Morbid obesity with BMI of 40.0-44.9, adult: Morbid obesity, BMI 41 Self-care deficit With progressive decline over last year, patient previously discharged to SNF with hope of transitioning to assisted living after this Psychiatry saw at prior hospitalization, confirmed he retains decision-making capacity Plan DVT prophylaxis: Anticoagulated Disposition: CODE STATUS: Full Surrogate decision maker would be patient's daughter Tricia available at [phone] Admission and Anticipated Discharge Date Admission Date: March 26, 2023 Supervising Physician Co-Signing Physician Notes I personally examined the patient and verified all siddiqi points of history and exa m, discussed case, and agree with decision making with Dr Lemos pt sleeping soundly when i see him. does not stir to voice or tactile stim (at the same time color/breathing/vitals/etc strongly show that he was just sleeping soundly, not in distress). vitals noted nad at rest, breathing unlabored no accessory muscles no tachypnea no lateralizing signs sepsis - ceftriaxone and dapto for now pending cultures and MRSA nares. source - ?urine or skin, or both. serial exams, serial HPI. doubt spine findings on imaging are suggestive of infection but will need to follow serial hx and exam on new/different back pain and then ask for spine eval and/or re-image if any (+) indications anticoagulated Good Ashby is a 72 yo M male w/ a PMHx of medication noncompliance, left lower extremity DVT, A-fib, CAD, MAIM, DM 2, and cognitive decline who was recently admitted from 02/18/2023 - 03/03/2023 and discharged to SNF. Ideally due to chronic decline patient was hopeful to [facility] assisted living following acute rehab. He re-presents to the ER 03/26/2023 with black spots overlying his buttocks which have occurred intermittently in the previous few months but currently which are very painful for him. He has chronic lower extremity swelling which is unchanged. last dc weight 123.5kg. Dry weight ~123-126 kg by chart review. Admit weight 105.9kg. ?accuracy --> daily standing weight Patient reported for last 2-3 days he has felt generally unwell with intermittent fevers. He has not taken anything for this. He thinks he had some abdominal pain earlier, none at time of his admission. He denied chest pain. He denied shortness of breath, cough, sputum production. He reported his legs hurt, but uncertain how long. He reported his pain is greatest at his buttocks where his skin is excoriated. He has had some diarrhea/loose bowel movement this morning. He feels his legs are always swollen is not sure if these have changed recently. Denied nausea/vomiting. [place] fatigued and dehydrated. This morning initially patient seems in better spirits, denying any pain anywhere, denying abdominal discomfort, tenderness, or distention. Denying any dysuria, increased urinary frequency/urgency. Patient is AAO x 3, able to name objects/parts of objects, language repetition intact. Review of Systems Constitutional: no fever, no chills, no fatigue and no weakness Respiratory: no cough, no chest congestion and no dyspnea Cardiovascular: no chest pain, no palpitations and no lightheadedness Gastrointestinal: + diarrhea/loose stools; no abdominal pa in, no bloating, no nausea, no vomiting and no constipation Integumentary: + skin ulcer and + erythema Neurologic: no tingling and no numbness Physical Exam Constitutional: + ill appearing and + morbidly obese Respiratory: normal respiratory effort, lungs clear to auscultation Cardiovascular: RRR, no murmur, no edema Gastrointestinal (Abdomen): Inspection/Auscultation: + abdomen distended and normal bowel sounds Percussion/Palpation: abdomen nontender and abdomen not rigid Skin: + lesion, + ulcer (ulcerating lesion(s) on buttocks, erythematous) and + erythema (warmth, erythema on LLE) Psychiatric: A+Ox3, euthymic affect Results & Data Results & Data Vital Signs (Past 12 Hours) Vital Signs Temp Pulse Pulse Resp BP Pulse Ox O2 Del Method 03/27/23 03:01 83 17 94 03/27/23 02:18 36.8 C 97 H 16 106/69 93 Room Air, CPAP 03/27/23 00:05 90 03/26/23 23:16 94 H 17 93 03/26/23 22:41 36.5 C 83 16 117/89 94 Room Air 03/26/23 21:00 115/68 FiO2 03/27/23 03:01 21 03/27/23 02:18 03/27/23 00:05 03/26/23 23:16 21 03/26/23 22:41 03/26/23 21:00 Resident Activity Tracking Resident Involvement: Resident Care Provided Care Provided: Adult Hospital Medicine (1) Sepsis Sepsis acute organ dysfunction status: with acute organ dysfunction Severe sepsis acute organ dysfunction type: unspecified Severe sepsis shock status: without septic shock
[2023-03-27] MEDS: PANTOprazole 40 MG TAB PO SCH (08:15)
[2023-03-27] MEDS: CHOLECALCIFEROL 25 MCG (1000 UNITS) TAB PO SCH (08:16)
[2023-03-27] MEDS: ASPIRIN 81 MG ECTAB PO SCH (08:16)
[2023-03-27] MEDS: POLYETHYLENE (MIRALAX) 17 GM PACK PO SCH (08:17)
[2023-03-27] MEDS: SENNA 8.6 MG TAB PO SCH (08:17)
[2023-03-27] MEDS: POTASSIUM CHLORIDE CRTAB 20 MEQ TABCR PO SCH (08:24)
[2023-03-27] MEDS ORDERED: NON-FORMULARY MEDICATION (Coq10 (Ubiquinol) 200 mg Capsule) PO SCH (09:00)
[2023-03-27] MEDS: DAPTOmycin 550 MG in SYRINGE 0 ML IV SCH (12:53)
[2023-03-27] MEDS: WARFARIN SOD 10 MG TAB PO SCH (15:18)
[2023-03-27] MEDS: cefTRIAXone SODIUM 2,000 MG in DEXTROSE 5 % MINI-B 50 ML IV SCH (15:18)
[2023-03-27] MEDS: ACETAMINOPHEN 325 MG TAB PO PRN (16:46)
[2023-03-27] MEDS ORDERED: BUTT PASTE (ZINC OXIDE 16%) 171 APPLN/57 GM JAR EXT PRN (18:47)
--- NOTE | 2023-03-27 18:58 | Billing Data ---
Date of Service March 27, 2023 Coding Level of Care Code 83446 SUB INP/OBS CARE MIN
[2023-03-28 06:35] LABS: Basophils # (auto) 0.07 K/uL (0.00-0.20); Basophils % (auto) 0.6 %; Eosinophils # (auto) 0.31 K/uL (0.00-0.50); Eosinophils % (auto) 2.8 %; Hematocrit (blood only) 39.1 % (42.0-52.0); Hemoglobin 13.7 g/dl (14.0-18.0); Immature Granulocytes # (auto) 0.12 K/uL (0.01-0.20); Immature Granulocytes % (auto) 1.1 %; Lymphocytes # (auto) 0.89 K/uL (1.20-3.40); Lymphocytes % (auto) 8.1 %; Mean Corpuscular Hemoglobin 30.9 pg (25.0-34.0); Mean Corpuscular Volume 88.3 fL (80.0-100.0); Monocytes # (auto) 1.27 K/uL (0.11-0.59); Monocytes % (auto) 11.6 %; Neutrophils # (auto) 8.27 K/uL (1.40-6.50); Neutrophils % (auto) 75.8 %; Platelet Count 304 K/uL (130-400); RDW Coefficient of Variation 13.2 % (11.5-14.5); RDW Standard Deviation 42.9 fL (36.4-46.3); Red Blood Count 4.43 M/uL (4.70-6.10); White Blood Count 10.93 K/ul (4.8-10.8)
[2023-03-28 07:01] LABS: INR 2.8 (0.9-1.1); Prothrombin Time 28.7 Seconds (9.0-12.0)
[2023-03-28 07:09] LABS: Albumin Level 2.9 gm/dl (3.4-5.0); BUN Creatinine Ratio 18.8 (10-20); Bilirubin,Total 0.9 mg/dl (0.2-1.0); Creatinine Clr Calc Pharmacy 133.7 ml/min; Est GFR (African American) 112.6 ml/min; Est GFR (Non-African American) 97.1 ml/min; Potassium 3.6 mmol/L (3.5-5.1); Total Protein 5.9 gm/dl (6.0-8.3)
--- NOTE | 2023-03-28 07:31 | Hospitalist Progress Note ---
Date of Service March 28, 2023 Assessment & Plan (1) Sepsis: (2) Cellulitis: (3) L5 vertebral fracture: (4) Diabetes: (5) Urinary tract infection: (6) CAD (coronary artery disease): Plan Isma is a 72 yo M male w/ a PMHx of medication noncompliance, left lower extremity DVT, A-fib, CAD, MAMI, DM 2, and cognitive decline admitted with concern for sepsis and cellulitis. 1) Sepsis: - Unclear etiology, multiple sources - Leukocytosis resolving - Blood Cx negative x1 day - Vital signs WNL (2) Cellulitis: As noted. CRP trended: CRP, 16.0 <-- 14.6 - MRSA nares + - Daptomycin (3) Urinary tract infection: - Klebsiella pneumoniae Pansensitve - Ceftriaxone (4) L5 vertebral fracture: - Low concern for osteomyelitis Patient is covered with antibiotics as above Repeat MRI in 1 month. If patient has gram-positive bacteremia or worsening back pain could consider as inpt (5) Abdominal distension: CTAP: No gluteal ulcerations or abscesses. Distended and fluid-filled colon initially suspicious for gastroenteritis/diarrheal illness without transition p oint to suggest small bowel obstruction. L5 fracture as noted. Rocephin/daptomycin Stool bio fire/C. difficile: negative, C. diff, negative - Mg, 2.0 - trend BMPs (6) History of left lower extremity DVT Continue warfarin INR goal 23 - INR 3.0 INR daily - Continue warfarin (7) Persistent atrial fibrillation: - Persistent atrial fibrillation Continue metoprolol 12.5 mg twice daily, can titrate as needed (8)CAD With history of PCI Continue metoprolol, aspirin, rosuvastatin Last echo with EF 55-59% 2018 (9) Obstructive sleep apnea: CPAP nightly (10) Diabetes (T2DM): Last A1c 7.2% Continue weight-based basal bolus Goal BSG [id number] DM2/heart healthy diet (11) Morbid obesity with BMI of 40.0-44.9, adult: Morbid obesity, BMI 41 Self-care deficit With progressive decline over last year, patient previously discharged to SNF with hope of transitioning to assisted living after this Psychiatry saw at prior hospitalization, confirmed he retains decision-making capacity Plan DVT prophylaxis: Anticoagulated Disposition: CODE STATUS: Full Surrogate decision maker would be patient's daughter Tricia available at [phone] Admission and Anticipated Discharge Date Admission Date: March 26, 2023 Supervising Physician Co-Signing Physician Notes Attending attestation Pt seen and examined in concert with Dr. Miramontes. In agreement with the documented findings as noted in the resident documentation with any exceptions or additions as noted here. No acute complaints at time of examination. Feeling that his lower extremities have improved in pain and swelling since admission. On examination, S1/S2 nl RRR no MCG. CTAB. Abd NT/ND BS+ve. Bilateral LE with diminished erythema compared to demarcated areas Sepsis - BCx NGTD Cellulitis - continue daptomycin and consider narrow based on clinical improvement and comorbid infection UTI - emnard-sensitive klebsiella on Cx - continue ceftriaxone, narrow to PO agent with confirmation of 48hr blood culture Else see resident documentation as noted. Subjective No acute events overnight. Continues to endorse abdominal pain, stool incontinence. Denies WALTON, CP, SOB, N/V. LE edema present Review of Systems Review of Systems: reviewed, per HPI Physical Exam Physical Exam: General: patient resting comfortably, NAD, non-toxic in appearance, answers questions appropriately and follows commands. Skin: warm, dry, intact HEENT: NC/AT, anicteric sclera, conjunctiva without injection, moist mucus membranes Heart: +S1/S2, regular, no m/r/g Lungs: equal air entry bilaterally, no rales/rhonchi/wheezes Abd: +BS, soft, NT/ND, no masses/organomegaly/ascites Ext: warm, b/l LE cellulitic rash decreased from initial demarcated region. Rash on b/l buttocks Neuro: nonfocal, speech intact, no facial droop, moving all extremities on command. Results & Data Results & Data Vital Signs (Past 12 Hours) Vital Signs Temp Pulse Pulse Resp BP Pulse Ox O2 Del Method 03/28/23 03:15 94 Room Air 03/28/23 03:00 36.7 C 85 18 109/65 90 Room Air 03/27/23 22:52 36.5 C 96 H 20 105/62 92 Room Air 03/27/23 22:43 96 H 03/27/23 20:40 Room Air Diagnostic Findings CT: "There is a nondisplaced fracture through the anterior inferior osteophyte/endplate at L5. This is new compared to the prior study. Mild prevertebral edema at this location with a few punctate foci of prevertebral gas along the left side of the S1 level. There is also gas within the L5-S1 disc space. This prevertebral edema and gas could be due to the posttraumatic changes at this level. A developing discitis/osteomyelitis could also have a similar appearance but is considered less likely given the lack of erosive changes within the endplates at this time. Follow-up lumbar spine MRI in one month is recommended for further evaluation." (1) Sepsis Sepsis acute organ dysfunction status: with acute organ dysfunction Severe sepsis acute organ dysfunction type: unspecified Severe sepsis shock status: without septic shock
[2023-03-28] MEDS: WARFARIN SOD 5 MG TAB PO SCH (16:36)
[2023-03-29 05:56] LABS: Basophils # (auto) 0.09 K/uL (0.00-0.20); Basophils % (auto) 0.9 %; Eosinophils # (auto) 0.24 K/uL (0.00-0.50); Eosinophils % (auto) 2.4 %; Hemoglobin 13.5 g/dl (14.0-18.0); Immature Granulocytes # (auto) 0.14 K/uL (0.01-0.20); Immature Granulocytes % (auto) 1.4 %; Lymphocytes # (auto) 0.89 K/uL (1.20-3.40); Lymphocytes % (auto) 8.8 %; Mean Corpuscular Hemoglobin 30.7 pg (25.0-34.0); Mean Corpuscular Hgb Conc 34.6 g/dL (32.0-36.0); Mean Corpuscular Volume 88.6 fL (80.0-100.0); Mean Platelet Volume 9.9 fL (9.4-12.4); Monocytes # (auto) 1.29 K/uL (0.11-0.59); Monocytes % (auto) 12.7 %; Neutrophils # (auto) 7.52 K/uL (1.40-6.50); Neutrophils % (auto) 73.8 %; Platelet Count 300 K/uL (130-400); RDW Coefficient of Variation 13.5 % (11.5-14.5); RDW Standard Deviation 43.8 fL (36.4-46.3); White Blood Count 10.17 K/ul (4.8-10.8)
[2023-03-29 06:15] LABS: Albumin Level 2.8 gm/dl (3.4-5.0); BUN Creatinine Ratio 13.1 (10-20); Bilirubin,Total 0.8 mg/dl (0.2-1.0); Calcium 8.9 mg/dl (8.6-10.3); Creatinine Clr Calc Pharmacy 140.3 ml/min; Est GFR (African American) 114.8 ml/min; Est GFR (Non-African American) 99.1 ml/min; Globulin 2.8 gm/dl (2.5-4.0); Potassium 3.8 mmol/L (3.5-5.1); Total Protein 5.6 gm/dl (6.0-8.3)
[2023-03-29 06:21] LABS: INR 2.9 (0.9-1.1); Prothrombin Time 29.8 Seconds (9.0-12.0)
[2023-03-29] MEDS: SODIUM CHLORIDE 0.9% 500 ML IV SCH (11:00)
--- NOTE | 2023-03-29 13:39 | Hospitalist Progress Note ---
Date of Service March 29, 2023 Assessment & Plan (1) Sepsis: (2) Cellulitis: (3) L5 vertebral fracture: (4) Diabetes: (5) Urinary tract infection: (6) CAD (coronary artery disease): Plan Isma is a 72 yo M male w/ a PMHx of medication noncompliance, left lower extremity DVT, A-fib, CAD, MAMI, DM 2, and cognitive decline admitted with concern for sepsis and cellulitis. 1) Sepsis: - Unclear etiology, multiple sources - Leukocytosis resolving - Blood Cx negative x2 day - Vital signs WNL (2) Cellulitis: - MRSA nares + - Daptomycin day 05/14 (3) Urinary tract infection: - Klebsiella pneumoniae Pansensitve - Ceftriaxone day 05/14, plan to transition to oral agent tomorrow (4) L5 vertebral fracture: - Low concern for osteomyelitis Patient is covered with antibiotics as above Repeat MRI in 1 month. If patient has gram-positive bacteremia or worsening back pain could consider as inpt (5) Abdominal distension: - Likely 2/2 large stool burden, resolving with rectal tube CTAP: No gluteal ulcerations or abscesses. Rocephin/daptomycin Stool bio fire/C. difficile: negative, C. diff, negative - Mg, 2.0 - trend BMPs (6) History of left lower extremity DVT Continue warfarin INR goal 23 - INR 3.0 INR daily - Continue warfarin (7) Persistent atrial fibrillation: - Persistent atrial fibrillation Continue metoprolol 12.5 mg twice daily, can titrate as needed (8)CAD With history of PCI Continue metoprolol, aspirin, rosuvastatin Last echo with EF 55-59% 2018 (9) Obstructive sleep apnea: CPAP nightly (10) Diabetes (T2DM): Last A1c 7.2% Continue weight-based basal bolus Goal BSG [id number] DM2/heart healthy diet (11) Morbid obesity with BMI of 40.0-44.9, adult: Morbid obesity, BMI 41 Self-care deficit With progressive decline over last year, patient previously discharged to SNF with hope of transitioning to assisted living after this Psychiatry saw at prior hospitalization, confirmed he retains decision-making capacity Plan DVT prophylaxis: Anticoagulated Disposition: CODE STATUS: Full Surrogate decision maker would be patient's daughter Tricia available at [phone] Admission and Anticipated Discharge Date Admission Date: March 26, 2023 Supervising Physician Co-Signing Physician Notes Attending attestation Pt seen and examined in concert with Dr. Miramontes. In agreement with the documented findings as noted in the resident documentation with any exceptions or additions as noted here. No acute complaints at time of examination. On examination, S1/S2 nl RRR no MCG. CTAB. Abd NT/ND BS+ve. Bilateral LE with diminished erythema compared to demarcated areas Sepsis - BCx NGTD Cellulitis - continue daptomycin and consider narrow based on clinical improvement and comorbid infection UTI - menard-sensitive klebsiella on Cx - continue ceftriaxone and narrow with abx for cellulitis Else see resident documentation as noted. Subjective No acute events overnight. Abdominal pain improved since yesterday. Labs largely unremarkable; white count improving, mild hyponatremia. VSS. Denies WALTON, CP, SOB, N/V. LE edema present Review of Systems Review of Systems: reviewed, per HPI Physical Exam Physical Exam: General: patient resting comfortably, NAD, non-toxic in appearance, answers questions appropriately and follows commands. Skin: warm, dry, intact HEENT: NC/AT, anicteric sclera, conjunctiva without injection, moist mucus membranes Heart: +S1/S2, regular, no m/r/g Lungs: equal air entry bilaterally, no rales/rhonchi/wheezes Abd: +BS, soft, NT/ND, no masses/organomegaly/ascites Ext: warm, b/l LE cellulitic rash decreased from initial demarcated region. Rash on b/l buttocks Neuro: nonfocal, speech intact, no facial droop, moving all extremities on command. Results & Data Results & Data Vital Signs (Past 12 Hours) Vital Signs Temp Pulse Resp BP Pulse Ox O2 Del Method 03/29/23 07:33 36.6 C 93 H 18 125/57 L 97 Room Air (1) Sepsis Sepsis acute organ dysfunction status: with acute organ dysfunction Severe sepsis acute organ dysfunction type: unspecified Severe sepsis shock status: without septic shock
[2023-03-29] MEDS: SODIUM CHLORIDE 0.9% 1,000 ML IV SCH (16:39)
[2023-03-30 07:23] LABS: Hemoglobin 14.8 g/dl (14.0-18.0); Mean Corpuscular Hemoglobin 30.8 pg (25.0-34.0); Mean Corpuscular Hgb Conc 34.4 g/dL (32.0-36.0); Mean Corpuscular Volume 89.4 fL (80.0-100.0); Mean Platelet Volume 9.9 fL (9.4-12.4); Platelet Count 322 K/uL (130-400); RDW Coefficient of Variation 14.1 % (11.5-14.5); RDW Standard Deviation 45.5 fL (36.4-46.3); Red Blood Count 4.81 M/uL (4.70-6.10); White Blood Count 9.92 K/ul (4.8-10.8)
[2023-03-30 07:46] LABS: Prothrombin Time 30.9 Seconds (9.0-12.0)
[2023-03-30 08:16] LABS: Bilirubin,Total 0.7 mg/dl (0.2-1.0); Calcium 8.8 mg/dl (8.6-10.3); Magnesium 1.9 mg/dl (1.7-2.4); Potassium 3.7 mmol/L (3.5-5.1)
[2023-03-30 08:22] LABS: BUN Creatinine Ratio 13.5 (10-20); Creatinine Clr Calc Pharmacy 164.6 ml/min; Est GFR (African American) 122.6 ml/min; Est GFR (Non-African American) 105.8 ml/min
--- NOTE | 2023-03-30 13:18 | Hospitalist Progress Note ---
Date of Service March 30, 2023 Assessment & Plan (1) Sepsis: (2) Cellulitis: (3) L5 vertebral fracture: (4) Diabetes: (5) Urinary tract infection: (6) CAD (coronary artery disease): Plan Isma is a 72 yo M male w/ a PMHx of medication noncompliance, left lower extremity DVT, A-fib, CAD, MAMI, DM 2, and cognitive decline admitted with concern for sepsis and cellulitis. 1) Sepsis: - Unclear etiology, multiple sources - Leukocytosis resolving - Blood Cx negative x2 day - Vital signs WNL (2) Cellulitis: - MRSA nares + - Daptomycin day 06/14 (3) Urinary tract infection: - Klebsiella pneumoniae Pansensitve - Ceftriaxone x3 days - Cefdinir 300mg BID day 06/14 total (4) L5 vertebral fracture: - Low concern for osteomyelitis Patient is covered with antibiotics as above Repeat MRI in 1 month. If patient has gram-positive bacteremia or worsening back pain could consider as inpt (5) Abdominal distension: - Likely 2/2 large stool burden, resolving with rectal tube CTAP: No gluteal ulcerations or abscesses. Rocephin/daptomycin Stool bio fire/C. difficile: negative, C. diff, negative - Mg, 2.0 - trend BMPs (6) History of left lower extremity DVT Continue warfarin INR goal 23 - INR 3.0 INR daily - Continue warfarin (7) Persistent atrial fibrillation: - Persistent atrial fibrillation Continue metoprolol 12.5 mg twice daily, can titrate as needed (8)CAD With history of PCI Continue metoprolol, aspirin, rosuvastatin Last echo with EF 55-59% 2018 (9) Obstructive sleep apnea: CPAP nightly (10) Diabetes (T2DM): Last A1c 7.2% Continue weight-based basal bolus Goal BSG [id number] DM2/heart healthy diet (11) Morbid obesity with BMI of 40.0-44.9, adult: Morbid obesity, BMI 41 Self-care deficit With progressive decline over last year, patient previously discharged to SNF with hope of transitioning to assisted living after this Psychiatry saw at prior hospitalization, confirmed he retains decision-making capacity Plan DVT prophylaxis: Anticoagulated Disposition: CODE STATUS: Full Surrogate decision maker would be patient's daughter Tricia available at [phone] Admission and Anticipated Discharge Date Admission Date: March 26, 2023 Supervising Physician Co-Signing Physician Notes Attending attestation Pt seen and examined in concert with Dr. Miramontes. In agreement with the documented findings as noted in the resident documentation with any exceptions or additions as noted here. No acute complaints at time of examination. On examination, S1/S2 nl RRR no MCG. CTAB. Abd NT/ND BS+ve. Bilateral LE ongoing diminished erythema Sepsis - BCx NGTD Cellulitis - continue daptomycin UTI - menard-sensitive klebsiella on Cx - transition to PO cefdinir to complete course Else see resident documentation as noted. Subjective No acute events overnight. Labs largely unremarkable; white count improving, hyponatremia resolved. VSS. Denies WALTON, CP, SOB, N/V. LE edema present Review of Systems Review of Systems: reviewed, per HPI Physical Exam Physical Exam: General: patient resting comfortably, NAD, non-toxic in appearance, answers questions appropriately and follows commands. Skin: warm, dry, intact HEENT: NC/AT, anicteric sclera, conjunctiva without injection, moist mucus membranes Heart: +S1/S2, regular, no m/r/g Lungs: equal air entry bilaterally, no rales/rhonchi/wheezes Abd: +BS, soft, NT/ND, no masses/organomegaly/ascites Ext: warm, b/l LE cellulitic rash further decreased from initial demarcated region. Rash on b/l buttocks Neuro: nonfocal, speech intact, no facial droop, moving all extremities on command. Results & Data Results & Data Vital Signs (Past 12 Hours) Vital Signs Temp Pulse Resp BP Pulse Ox O2 Del Method 03/30/23 07:48 36.7 C 91 H 16 133/74 98 Room Air 03/30/23 07:45 Room Air (1) Sepsis Sepsis acute organ dysfunction status: with acute organ dysfunction Severe sepsis acute organ dysfunction type: unspecified Severe sepsis shock status: without septic shock
[2023-03-30] MEDS: CEFDINIR 300 MG CAP PO SCH (21:17)
--- NOTE | 2023-03-31 07:16 | Hospitalist Progress Note ---
Date of Service March 31, 2023 Assessment & Plan (1) Sepsis: (2) Cellulitis: (3) L5 vertebral fracture: (4) Diabetes: (5) Urinary tract infection: (6) CAD (coronary artery disease): Plan Isma is a 72 yo M male w/ a PMHx of medication noncompliance, left lower extremity DVT, A-fib, CAD, MAMI, DM 2, and cognitive decline admitted with concern for sepsis and cellulitis. 1) Sepsis: - Unclear etiology, multiple sources - Leukocytosis resolving - Blood Cx negative x2 day - Vital signs WNL (2) Cellulitis: - MRSA nares + - Daptomycin day 07/14 (3) Urinary tract infection: - Klebsiella pneumoniae Pansensitve - Ceftriaxone x3 days - Cefdinir 300mg BID day 07/14 total (4) L5 vertebral fracture: - Low concern for osteomyelitis Patient is covered with antibiotics as above Repeat MRI in 1 month. If patient has gram-positive bacteremia or worsening back pain could consider as inpt (5) Abdominal distension: - Likely 2/2 large stool burden, resolving with rectal tube CTAP: No gluteal ulcerations or abscesses. Rocephin/daptomycin Stool bio fire/C. difficile: negative, C. diff, negative - trend CMPs (6) History of left lower extremity DVT Continue warfarin INR goal 23 - INR daily - Continue warfarin (7) Persistent atrial fibrillation: - Persistent atrial fibrillation Continue metoprolol 12.5 mg twice daily, can titrate as needed (8)CAD With history of PCI Continue metoprolol, aspirin, rosuvastatin Last echo with EF 55-59% 2018 (9) Obstructive sleep apnea: CPAP nightly (10) Diabetes (T2DM): Last A1c 7.2% Continue weight-based basal bolus Goal BSG 774016 DM2/heart healthy diet (11) Morbid obesity with BMI of 40.0-44.9, adult: Morbid obesity, BMI 41 Self-care deficit With progressive decline over last year, patient previously discharged to SNF with hope of transitioning to assisted living after this Psychiatry saw at prior hospitalization, confirmed he retains decision-making capacity Plan DVT prophylaxis: Anticoagulated Disposition: CODE STATUS: Full Surrogate decision maker would be patient's daughter Tricia available at [phone] Admission and Anticipated Discharge Date Admission Date: March 26, 2023 Supervising Physician Co-Signing Physician Notes Attending attestation Pt seen and examined in concert with Dr. Miramontes. In agreement with the documented findings as noted in the resident documentation with any exceptions or additions as noted here. No acute complaints at time of examination. Subjective improvement in bilateral LE erythema and pain. On examination, S1/S2 nl RRR no MCG. CTAB. Abd NT/ND BS+ve. Bilateral LE ongoing diminished erythema Sepsis - BCx NGTD Cellulitis - continue daptomycin UTI - menard-sensitive klebsiella on Cx - continue cefdinir Deconditioning/Ambulatory dysfunction - PT/OT rec'd SNF, pending placement Else see resident documentation as noted. Subjective No acute events overnight. Pt feels he is improving daily. VSS. Denies WALTON, CP, SOB, N/V. LE edema present Review of Systems Review of Systems: reviewed, per HPI Physical Exam Physical Exam: General: patient resting comfortably, NAD, non-toxic in appearance, answers questions appropriately and follows commands. Skin: warm, dry, intact HEENT: NC/AT, anicteric sclera, conjunctiva without injection, moist mucus membranes Heart: +S1/S2, regular, no m/r/g Lungs: equal air entry bilaterally, no rales/rhonchi/wheezes Abd: +BS, soft, NT/ND, no masses/organomegaly/ascites Ext: warm, b/l LE cellulitic rash further decreased from initial demarcated region. Rash on b/l buttocks Neuro: nonfocal, speech intact, no facial droop, moving all extremities on comm and. Results & Data Results & Data Vital Signs (Past 12 Hours) Vital Signs Temp Pulse Pulse Resp BP Pulse Ox O2 Del Method 03/30/23 21:45 36.6 C 96 H 96 H 18 107/66 96 Room Air (1) Sepsis Sepsis acute organ dysfunction status: with acute organ dysfunction Severe sepsis acute organ dysfunction type: unspecified Severe sepsis shock status: without septic shock
[2023-03-31 08:36] LABS: Hematocrit (blood only) 41.8 % (42.0-52.0); Hemoglobin 14.2 g/dl (14.0-18.0); Mean Corpuscular Hemoglobin 30.6 pg (25.0-34.0); Mean Corpuscular Volume 90.1 fL (80.0-100.0); Mean Platelet Volume 9.4 fL (9.4-12.4); Platelet Count 303 K/uL (130-400); RDW Coefficient of Variation 14.1 % (11.5-14.5); RDW Standard Deviation 46.4 fL (36.4-46.3); Red Blood Count 4.64 M/uL (4.70-6.10); White Blood Count 8.45 K/ul (4.8-10.8)
[2023-03-31 08:52] LABS: Albumin Globulin Ratio 0.9 (0.9-2); Albumin Level 2.7 gm/dl (3.4-5.0); BUN Creatinine Ratio 11.4 (10-20); Bilirubin,Total 0.7 mg/dl (0.2-1.0); Calcium 8.5 mg/dl (8.6-10.3); Creatinine Clr Calc Pharmacy 194.5 ml/min; Est GFR (African American) 131.3 ml/min; Est GFR (Non-African American) 113.3 ml/min; Globulin 2.9 gm/dl (2.5-4.0); Magnesium 1.8 mg/dl (1.7-2.4); Total Protein 5.6 gm/dl (6.0-8.3)
[2023-03-31 08:57] LABS: INR 2.6 (0.9-1.1); Prothrombin Time 27.2 Seconds (9.0-12.0)
[2023-03-31] MEDS: SODIUM CHLORIDE 0.9% 1,000 ML IV SCH (12:02)
[2023-04-01 06:07] LABS: Hematocrit (blood only) 41.7 % (42.0-52.0); Hemoglobin 13.9 g/dl (14.0-18.0); Mean Corpuscular Hemoglobin 30.2 pg (25.0-34.0); Mean Corpuscular Hgb Conc 33.3 g/dL (32.0-36.0); Mean Corpuscular Volume 90.7 fL (80.0-100.0); Mean Platelet Volume 9.6 fL (9.4-12.4); Platelet Count 349 K/uL (130-400); RDW Coefficient of Variation 14.1 % (11.5-14.5); RDW Standard Deviation 46.7 fL (36.4-46.3); White Blood Count 9.22 K/ul (4.8-10.8)
[2023-04-01 06:18] LABS: Albumin Level 2.7 gm/dl (3.4-5.0); BUN Creatinine Ratio 11.8 (10-20); Bilirubin,Total 0.8 mg/dl (0.2-1.0); Calcium 8.7 mg/dl (8.6-10.3); Creatinine Clr Calc Pharmacy 167.8 ml/min; Est GFR (African American) 123.6 ml/min; Est GFR (Non-African American) 106.6 ml/min; Globulin 2.8 gm/dl (2.5-4.0); Magnesium 1.8 mg/dl (1.7-2.4); Potassium 4.3 mmol/L (3.5-5.1); Total Protein 5.5 gm/dl (6.0-8.3)
--- NOTE | 2023-04-01 13:52 | Hospitalist Progress Note ---
Date of Service April 01, 2023 Assessment & Plan (1) Sepsis: (2) Cellulitis: (3) L5 vertebral fracture: (4) Diabetes: (5) Urinary tract infection: (6) CAD (coronary artery disease): Plan Isma is a 72 yo M male w/ a PMHx of medication noncompliance, left lower extremity DVT, A-fib, CAD, MAMI, DM 2, and cognitive decline admitted with concern for sepsis and cellulitis. 1) Sepsis: - Unclear etiology, multiple sources - Leukocytosis resolving - Blood Cx negative x2 day - Vital signs WNL (2) Cellulitis: - MRSA nares + - Daptomycin day 08/14 (3) Urinary tract infection: - Klebsiella pneumoniae Pansensitve - Ceftriaxone x3 days - Cefdinir 300mg BID day 08/14 total (4) L5 vertebral fracture: - Low concern for osteomyelitis Patient is covered with antibiotics as above Repeat MRI in 1 month. If patient has gram-positive bacteremia or worsening back pain could consider as inpt (5) Abdominal distension: - Likely 2/2 large stool burden, resolving with rectal tube CTAP: No gluteal ulcerations or abscesses. Rocephin/daptomycin Stool bio fire/C. difficile: negative, C. diff, negative - trend CMPs (6) History of left lower extremity DVT Continue warfarin INR goal 23 - INR daily - Continue warfarin (7) Persistent atrial fibrillation: - Persistent atrial fibrillation Continue metoprolol 12.5 mg twice daily, can titrate as needed (8)CAD With history of PCI Continue metoprolol, aspirin, rosuvastatin Last echo with EF 55-59% 2018 (9) Obstructive sleep apnea: CPAP nightly (10) Diabetes (T2DM): Last A1c 7.2% Continue weight-based basal bolus Goal BSG [id number] DM2/heart healthy diet (11) Morbid obesity with BMI of 40.0-44.9, adult: Morbid obesity, BMI 41 Self-care deficit With progressive decline over last year, patient previously discharged to SNF with hope of transitioning to assisted living after this Psychiatry saw at prior hospitalization, confirmed he retains decision-making capacity Plan DVT prophylaxis: Anticoagulated Disposition: CODE STATUS: Full Surrogate decision maker would be patient's daughter Tricia available at [phone] Admission and Anticipated Discharge Date Admission Date: March 26, 2023 Supervising Physician Co-Signing Physician Notes ATTESTATION I also saw the patient and confirmed siddiqi portions of the history and exam. I agree with the impression and plan in the resident documentation, and as summarized below. Upon midmorning exam, the patient is actually trying out of bed with the help of nursing staff. He has no new complaints EXAM 104/63, 77, 16, 36.5, 95% on room air Alert and oriented. Pleasant. Respirations nonlabored Rate normal DATA Labs Hemoglobin 13.9 Sodium 138, potassium 4.3, BUN 6, creatinine 0.51 IMPRESSION & PLAN Sepsis -blood cultures negative to date Cellulitis -daptomycin UTI -cefdinir for Klebsiella pneumonia Deconditioning/Ambulatory dysfunction -PT/OT recommend SNF, placement is pending Additional per resident documentation Subjective No acute events overnight. Patient seen and evaluated at bedside this morning. Pt feels he is improving daily. VSS. Denies WALTON, CP, SOB, N/V. LE edema present Review of Systems Review of Systems: reviewed, per HPI Physical Exam Physical Exam: General: patient resting comfortably, NAD, non-toxic in appearance, answers questions appropriately and follows commands. Skin: warm, dry, intact HEENT: NC/AT, anicteric sclera, conjunctiva without injection, moist mucus membranes Heart: +S1/S2, regular, no m/r/g Lungs: equal air entry bilaterally, no rales/rhonchi/wheezes Abd: +BS, soft, NT Ext: warm, b/l LE cellulitic rash further decreased from initial demarcated region. Rash on b/l buttocks Neuro: nonfocal, speech intact, no facial droop, moving all extremities on command. Results & Data Results & Data Vital Signs (Past 12 Hours) Vital Signs Temp Pulse Resp BP Pulse Ox O2 Del Method 04/01/23 08:24 Room Air 04/01/23 07:11 36.4 C L 88 16 122/75 96 Room Air (1) Sepsis Sepsis acute organ dysfunction status: with acute organ dysfunction Severe sepsis acute organ dysfunction type: unspecified Severe sepsis shock status: without septic shock
[2023-04-02 07:07] LABS: Basophils # (auto) 0.06 K/uL (0.00-0.20); Basophils % (auto) 0.7 %; Eosinophils # (auto) 0.34 K/uL (0.00-0.50); Hemoglobin 14.6 g/dl (14.0-18.0); Immature Granulocytes # (auto) 0.08 K/uL (0.01-0.20); Lymphocytes # (auto) 0.99 K/uL (1.20-3.40); Lymphocytes % (auto) 11.8 %; Mean Corpuscular Hemoglobin 30.2 pg (25.0-34.0); Mean Corpuscular Hgb Conc 33.2 g/dL (32.0-36.0); Mean Corpuscular Volume 91.1 fL (80.0-100.0); Monocytes # (auto) 1.04 K/uL (0.11-0.59); Monocytes % (auto) 12.4 %; Neutrophils # (auto) 5.91 K/uL (1.40-6.50); Neutrophils % (auto) 70.1 %; Platelet Count 357 K/uL (130-400); RDW Coefficient of Variation 14.2 % (11.5-14.5); RDW Standard Deviation 47.6 fL (36.4-46.3); Red Blood Count 4.83 M/uL (4.70-6.10); White Blood Count 8.42 K/ul (4.8-10.8)
[2023-04-02 07:27] LABS: INR 3.1 (0.9-1.1); Prothrombin Time 31.9 Seconds (9.0-12.0)
--- NOTE | 2023-04-02 07:38 | Hospitalist Progress Note ---
Date of Service April 02, 2023 Assessment & Plan (1) Sepsis: (2) Cellulitis: (3) L5 vertebral fracture: (4) Diabetes: (5) Urinary tract infection: (6) CAD (coronary artery disease): Plan Isma is a 72 yo M male w/ a PMHx of medication noncompliance, left lower extremity DVT, A-fib, CAD, MAMI, DM 2, and cognitive decline admitted with concern for sepsis and cellulitis. 1) Sepsis: - Unclear etiology, multiple sources - Leukocytosis resolving - Blood Cx negative - Vital signs WNL (2) Cellulitis: - MRSA nares + - Daptomycin day 09/13 (3) Urinary tract infection: - Klebsiella Pansensitve - Ceftriaxone x3 days - Cefdinir 300mg BID day 09/13 total (4) L5 vertebral fracture: - Low concern for osteomyelitis Patient is covered with antibiotics as above Repeat MRI in 1 month. If patient has gram-positive bacteremia or worsening back pain could consider as inpt (5) Abdominal distension: - Likely 2/2 large stool burden, resolving with rectal tube CTAP: No gluteal ulcerations or abscesses. Stool bio fire/C. difficile: negative, C. diff, negative - trend CMPs (6) History of left lower extremity DVT Continue warfarin INR goal 23 - INR daily - Continue warfarin (7) Persistent atrial fibrillation: - Persistent atrial fibrillation Continue metoprolol 12.5 mg twice daily, can titrate as needed (8)CAD With history of PCI Continue metoprolol, aspirin, rosuvastatin Last echo with EF 55-59% 2018 (9) Obstructive sleep apnea: CPAP nightly (10) Diabetes (T2DM): Last A1c 7.2% Continue weight-based basal bolus Goal BSG 418461 DM2/heart healthy diet (11) Morbid obesity with BMI of 40.0-44.9, adult: Morbid obesity, BMI 41 Self-care deficit With progressive decline over last year, patient previously discharged to SNF with hope of transitioning to assisted living after this Psychiatry saw at prior hospitalization, confirmed he retains decision-making capacity Plan DVT prophylaxis: Anticoagulated Disposition: CODE STATUS: Full Surrogate decision maker would be patient's daughter Tricia available at [phone] Admission and Anticipated Discharge Date Admission Date: March 26, 2023 Supervising Physician Co-Signing Physician Notes ATTESTATION I also saw the patient and confirmed siddiqi portions of the history and exam. I agree with the impression and plan in the resident documentation, and as summarized below. He is lying semireclined in bed watching TV. No complaints. Conversational. Hard of hearing. EXAM 127/75, 96, 16, 36.5, 97% on room air Alert and oriented. Pleasant. Respirations nonlabored Rate normal DATA Labs CBC unremarkable. BMP unremarkable, BUN 6, creatinine 0.5 IMPRESSION & PLAN Sepsis -blood cultures negative to date Cellulitis -daptomycin, day 09/13 UTI -cefdinir for Klebsiella pneumonia Deconditioning/Ambulatory dysfunction -PT/OT recommend SNF, placement is pending Additional per resident documentation Subjective No acute events overnight. Patient seen and evaluated at bedside this morning. Pt feels he is improving daily. VSS. Labs reviewed and largely unremarkable. Denies WALTON, CP, SOB, N/V. LE edema present Review of Systems Review of Systems: reviewed, per HPI Physical Exam Physical Exam: General: patient resting comfortably, NAD, non-toxic in appearance, answers questions appropriately and follows commands. Skin: warm, dry, intact HEENT: NC/AT, anicteric sclera, conjunctiva without injection, moist mucus membranes Heart: +S1/S2, regular, no m/r/g Lungs: equal air entry bilaterally, no rales/rhonchi/wheezes Abd: +BS, soft, NT Ext: warm, b/l LE receding erythema decreased from initial demarcated region. Rash on b/l buttocks Neuro: nonfocal, speech intact, no facial droop, moving all extremities on comm and. Results & Data Results & Data Vital Signs (Past 12 Hours) Vital Signs Temp Pulse Resp BP Pulse Ox O2 Del Method 04/02/23 07:18 36.5 C 96 H 16 127/75 97 Room Air 04/01/23 19:53 36.6 C 90 16 119/71 95 Room Air 04/01/23 19:40 Room Air (1) Sepsis Sepsis acute organ dysfunction status: with acute organ dysfunction Severe sepsis acute organ dysfunction type: unspecified Severe sepsis shock status: without septic shock
[2023-04-02 07:46] LABS: Albumin Level 2.9 gm/dl (3.4-5.0); Bilirubin,Total 0.8 mg/dl (0.2-1.0); Calcium 9.1 mg/dl (8.6-10.3); Creatinine Clr Calc Pharmacy 171.1 ml/min; Est GFR (African American) 124.6 ml/min; Est GFR (Non-African American) 107.5 ml/min; Magnesium 1.9 mg/dl (1.7-2.4); Potassium 4.4 mmol/L (3.5-5.1); Total Protein 5.9 gm/dl (6.0-8.3)
[2023-04-03 06:13] LABS: Basophils # (auto) 0.06 K/uL (0.00-0.20); Basophils % (auto) 0.9 %; Eosinophils # (auto) 0.31 K/uL (0.00-0.50); Eosinophils % (auto) 4.8 %; Hematocrit (blood only) 41.7 % (42.0-52.0); Hemoglobin 14.2 g/dl (14.0-18.0); Immature Granulocytes # (auto) 0.07 K/uL (0.01-0.20); Immature Granulocytes % (auto) 1.1 %; Lymphocytes # (auto) 0.88 K/uL (1.20-3.40); Lymphocytes % (auto) 13.6 %; Mean Corpuscular Hemoglobin 30.8 pg (25.0-34.0); Mean Corpuscular Hgb Conc 34.1 g/dL (32.0-36.0); Mean Corpuscular Volume 90.5 fL (80.0-100.0); Mean Platelet Volume 9.9 fL (9.4-12.4); Monocytes # (auto) 1.06 K/uL (0.11-0.59); Monocytes % (auto) 16.4 %; Neutrophils # (auto) 4.08 K/uL (1.40-6.50); Neutrophils % (auto) 63.2 %; Platelet Count 338 K/uL (130-400); RDW Coefficient of Variation 14.3 % (11.5-14.5); RDW Standard Deviation 47.4 fL (36.4-46.3); Red Blood Count 4.61 M/uL (4.70-6.10); White Blood Count 6.46 K/ul (4.8-10.8)
[2023-04-03 06:21] LABS: Albumin Level 2.9 gm/dl (3.4-5.0); Bilirubin,Total 0.7 mg/dl (0.2-1.0); Calcium 8.8 mg/dl (8.6-10.3); Creatinine Clr Calc Pharmacy 171.1 ml/min; Est GFR (African American) 124.6 ml/min; Est GFR (Non-African American) 107.5 ml/min; Magnesium 1.8 mg/dl (1.7-2.4); Potassium 4.2 mmol/L (3.5-5.1); Total Protein 5.9 gm/dl (6.0-8.3)
--- NOTE | 2023-04-03 09:18 | Hospitalist Progress Note ---
Date of Service April 03, 2023 Assessment & Plan (1) Sepsis: (2) Cellulitis: (3) L5 vertebral fracture: (4) Diabetes: (5) Urinary tract infection: (6) CAD (coronary artery disease): Plan Isma is a 72 yo M male w/ a PMHx of medication noncompliance, left lower extremity DVT, A-fib, CAD, MAMI, DM 2, and cognitive decline admitted with concern for sepsis and cellulitis. 1) Sepsis: - Unclear etiology, multiple sources - Leukocytosis resolving - Blood Cx negative - Vital signs WNL (2) Cellulitis: - MRSA nares + - Daptomycin day 10/14 (3) Urinary tract infection: - Klebsiella Pansensitve - Ceftriaxone x3 days - Cefdinir 300mg BID day 10/14 total (4) L5 vertebral fracture: - Low concern for osteomyelitis Patient is covered with antibiotics as above Repeat MRI in 1 month. If patient has gram-positive bacteremia or worsening back pain could consider as inpt (5) Abdominal distension: - Likely 2/2 large stool burden, resolving with rectal tube CTAP: No gluteal ulcerations or abscesses. Stool bio fire/C. difficile: negative, C. diff, negative - trend CMPs (6) History of left lower extremity DVT Continue warfarin INR goal 23 - INR daily - Continue warfarin (7) Persistent atrial fibrillation: - Persistent atrial fibrillation Continue metoprolol 12.5 mg twice daily, can titrate as needed (8)CAD With history of PCI Continue metoprolol, aspirin, rosuvastatin Last echo with EF 55-59% 2018 (9) Obstructive sleep apnea: CPAP nightly (10) Diabetes (T2DM): Last A1c 7.2% Continue weight-based basal bolus Goal BSG [id number] DM2/heart healthy diet (11) Morbid obesity with BMI of 40.0-44.9, adult: Morbid obesity, BMI 41 Self-care deficit With progressive decline over last year, patient previously discharged to SNF with hope of transitioning to assisted living after this Psychiatry saw at prior hospitalization, confirmed he retains decision-making capacity Plan DVT prophylaxis: Anticoagulated Disposition: CODE STATUS: Full Surrogate decision maker would be patient's daughter Tricia available at [phone] Admission and Anticipated Discharge Date Admission Date: March 26, 2023 Supervising Physician Co-Signing Physician Notes ATTESTATION I also saw the patient and confirmed siddiqi portions of the history and exam. I agree with the impression and plan in the resident documentation, and as summarized below. He has no complaints today. The rectal tube was removed yesterday as it was not functioning properly. He is glad to have it out. EXAM 126/75, 95, 20, 36.7, 94% room air Alert and oriented. Pleasant. Respirations nonlabored Rate normal DATA Labs CBC and BMP unremarkable IMPRESSION & PLAN Sepsis -blood cultures negative to date Cellulitis -daptomycin, day 10/14 UTI -cefdinir for Klebsiella pneumonia Deconditioning/Ambulatory dysfunction -PT/OT recommend SNF, placement is pending Additional per resident documentation Subjective No acute events overnight. Rectal tube removed yesterday due to non-functional status per nursing. Lesions on buttocks dressed per nursing. Patient seen and evaluated at bedside this morning. Pt feels he is improving daily. VSS. Labs reviewed and largely unremarkable. Denies WALTON, CP, SOB, N/V. LE edema present Review of Systems Review of Systems: reviewed, per HPI Physical Exam Physical Exam: General: patient resting comfortably, NAD, non-toxic in appearance, answers questions appropriately and follows commands. Skin: warm, dry, intact HEENT: NC/AT, anicteric sclera, conjunctiva without injection, moist mucus membranes Heart: +S1/S2, regular, no m/r/g Lungs: equal air entry bilaterally, no rales/rhonchi/wheezes Abd: +BS, soft, NT Ext: warm, b/l LE receding erythema decreased from initial demarcated region. Rash on b/l buttocks Neuro: nonfocal, speech intact, no facial droop, moving all extremities on command. Results & Data Results & Data Vital Signs (Past 12 Hours) Vital Signs Temp Pulse Resp BP Pulse Ox O2 Del Method 04/03/23 07:48 36.7 C 95 H 20 126/75 94 Room Air 04/03/23 05:27 36.5 C 84 20 120/74 95 Room Air 04/02/23 23:47 36.7 C 96 H 20 110/70 95 Room Air (1) Sepsis Sepsis acute organ dysfunction status: with acute organ dysfunction Severe sepsis acute organ dysfunction type: unspecified Severe sepsis shock status: without septic shock
[2023-04-04 06:29] LABS: Basophils # (auto) 0.09 K/uL (0.00-0.20); Basophils % (auto) 1.1 %; Eosinophils # (auto) 0.32 K/uL (0.00-0.50); Hematocrit (blood only) 42.2 % (42.0-52.0); Hemoglobin 14.5 g/dl (14.0-18.0); Immature Granulocytes # (auto) 0.06 K/uL (0.01-0.20); Immature Granulocytes % (auto) 0.8 %; Lymphocytes # (auto) 1.11 K/uL (1.20-3.40); Mean Corpuscular Hemoglobin 30.9 pg (25.0-34.0); Mean Corpuscular Hgb Conc 34.4 g/dL (32.0-36.0); Mean Corpuscular Volume 89.8 fL (80.0-100.0); Mean Platelet Volume 9.8 fL (9.4-12.4); Monocytes # (auto) 1.15 K/uL (0.11-0.59); Monocytes % (auto) 14.5 %; Neutrophils % (auto) 65.6 %; Platelet Count 365 K/uL (130-400); RDW Coefficient of Variation 13.8 % (11.5-14.5); RDW Standard Deviation 45.2 fL (36.4-46.3); White Blood Count 7.93 K/ul (4.8-10.8)
[2023-04-04 06:35] LABS: Bilirubin,Total 0.7 mg/dl (0.2-1.0); Calcium 9.5 mg/dl (8.6-10.3); Creatinine Clr Calc Pharmacy 158.5 ml/min; Est GFR (African American) 120.7 ml/min; Est GFR (Non-African American) 104.2 ml/min; Globulin 3.1 gm/dl (2.5-4.0); Magnesium 1.9 mg/dl (1.7-2.4); Potassium 4.1 mmol/L (3.5-5.1); Total Protein 6.1 gm/dl (6.0-8.3)
[2023-04-04 06:41] LABS: INR 3.2 (0.9-1.1); Prothrombin Time 32.7 Seconds (9.0-12.0)
--- NOTE | 2023-04-04 12:45 | Hospitalist Progress Note ---
Date of Service April 04, 2023 Assessment & Plan (1) Sepsis: (2) Cellulitis: (3) L5 vertebral fracture: (4) Diabetes: (5) Urinary tract infection: (6) CAD (coronary artery disease): Plan sIma is a 72 yo M male w/ a PMHx of medication noncompliance, left lower extremity DVT, A-fib, CAD, MAMI, DM 2, and cognitive decline admitted with concern for sepsis and cellulitis. 1) Sepsis: - Unclear etiology, multiple sources - Leukocytosis resolving - Blood Cx negative - Vital signs WNL (2) Cellulitis: - MRSA nares + - Daptomycin day 10/14 (3) Urinary tract infection: - Klebsiella Pansensitve - Ceftriaxone x3 days - Cefdinir 300mg BID day 10/14 total (4) L5 vertebral fracture: - Low concern for osteomyelitis Patient is covered with antibiotics as above Repeat MRI in 1 month. If patient has gram-positive bacteremia or worsening back pain could consider as inpt (5) Abdominal distension: - Likely 2/2 large stool burden, resolving with rectal tube CTAP: No gluteal ulcerations or abscesses. Stool bio fire/C. difficile: negative, C. diff, negative - trend CMPs (6) History of left lower extremity DVT Continue warfarin INR goal 23 - INR daily - Continue warfarin (7) Persistent atrial fibrillation: - Persistent atrial fibrillation Continue metoprolol 12.5 mg twice daily, can titrate as needed (8)CAD With history of PCI Continue metoprolol, aspirin, rosuvastatin Last echo with EF 55-59% 2018 (9) Obstructive sleep apnea: CPAP nightly (10) Diabetes (T2DM): Last A1c 7.2% Continue weight-based basal bolus Goal BSG 395909 DM2/heart healthy diet (11) Morbid obesity with BMI of 40.0-44.9, adult: Morbid obesity, BMI 41 Self-care deficit With progressive decline over last year, patient previously discharged to SNF with hope of transitioning to assisted living after this Psychiatry saw at prior hospitalization, confirmed he retains decision-making capacity Plan DVT prophylaxis: Anticoagulated Disposition: CODE STATUS: Full Surrogate decision maker would be patient's daughter Tricia available at [phone] Admission and Anticipated Discharge Date Admission Date: March 26, 2023 Supervising Physician Co-Signing Physician Notes I personally examined the patient and verified all siddiqi points of history and exam, discussed case, and agree with decision making with Dr Miramontes Resting comfortably. Awaiting SNF. No new issues identified. Vitals noted, in general he is resting comfortably appears to be in no distress. Breathing unlabored no accessory muscle use good effort. Skin without rashes pallor or icterus. IMPRESSION & PLAN Sepsis -source - urine/skin/both; improved Cellulitis -daptomycin, day 9/10 UTI -cefdinir for Klebsiella pneumonia Deconditioning/Ambulatory dysfunction -PT/OT recommend SNF, placement is pending - stable when bed available Additional per resident documentation Subjective No acute events overnight. Rectal tube removed yesterday due to non-functional status per nursing. Lesions on buttocks dressed per nursing. Patient seen and evaluated at bedside this morning. Pt feels he is improving daily. VSS. Labs reviewed and largely unremarkable. Denies WALTON, CP, SOB, N/V. LE edema present Review of Systems Review of Systems: reviewed, per HPI Physical Exam Physical Exam: General: patient resting comfortably, NAD, non-toxic in appearance, answers questions appropriately and follows commands. Skin: warm, dry, intact HEENT: NC/AT, anicteric sclera, conjunctiva without injection, moist mucus membranes Heart: +S1/S2, regular, no m/r/g Lungs: equal air entry bilaterally, no rales/rhonchi/wheezes Abd: +BS, soft, NT Ext: warm, b/l LE receding erythema decreased from initial demarcated region. Rash on b/l buttocks Neuro: nonfocal, speech intact, no facial droop, moving all extremities on command. Results & Data Results & Data Vital Signs (Past 12 Hours) Vital Signs Temp Pulse Resp BP Pulse Ox O2 Del Method 04/04/23 07:13 36.5 C 95 H 18 102/68 94 Room Air 04/04/23 07:12 Room Air (1) Sepsis Sepsis acute organ dysfunction status: with acute organ dysfunction Severe sepsis acute organ dysfunction type: unspecified Severe sepsis shock status: without septic shock
--- NOTE | 2023-04-04 13:21 | Billing Data ---
Date of Service April 04, 2023 Coding Level of Care Code 24232 SUB INP/OBS CARE
[2023-04-05 06:27] LABS: Basophils # (auto) 0.09 K/uL (0.00-0.20); Eosinophils # (auto) 0.27 K/uL (0.00-0.50); Hematocrit (blood only) 41.5 % (42.0-52.0); Hemoglobin 14.3 g/dl (14.0-18.0); Immature Granulocytes # (auto) 0.05 K/uL (0.01-0.20); Immature Granulocytes % (auto) 0.6 %; Lymphocytes # (auto) 1.08 K/uL (1.20-3.40); Lymphocytes % (auto) 12.1 %; Mean Corpuscular Hemoglobin 30.8 pg (25.0-34.0); Mean Corpuscular Hgb Conc 34.5 g/dL (32.0-36.0); Mean Corpuscular Volume 89.2 fL (80.0-100.0); Mean Platelet Volume 9.9 fL (9.4-12.4); Monocytes # (auto) 1.14 K/uL (0.11-0.59); Monocytes % (auto) 12.8 %; Neutrophils # (auto) 6.28 K/uL (1.40-6.50); Neutrophils % (auto) 70.5 %; Platelet Count 366 K/uL (130-400); RDW Coefficient of Variation 14.1 % (11.5-14.5); RDW Standard Deviation 46.2 fL (36.4-46.3); Red Blood Count 4.65 M/uL (4.70-6.10); White Blood Count 8.91 K/ul (4.8-10.8)
[2023-04-05 06:39] LABS: Albumin Level 3.1 gm/dl (3.4-5.0); BUN Creatinine Ratio 13.8 (10-20); Bilirubin,Total 0.7 mg/dl (0.2-1.0); Calcium 9.4 mg/dl (8.6-10.3); Creatinine Clr Calc Pharmacy 141.6 ml/min; Est GFR (African American) 117.2 ml/min; Est GFR (Non-African American) 101.1 ml/min; Magnesium 1.8 mg/dl (1.7-2.4); Potassium 3.8 mmol/L (3.5-5.1); Total Protein 6.1 gm/dl (6.0-8.3)
--- NOTE | 2023-04-05 07:05 | Hospitalist Progress Note ---
Date of Service April 05, 2023 Assessment & Plan (1) Sepsis: (2) Cellulitis: (3) L5 vertebral fracture: (4) Diabetes: (5) Urinary tract infection: (6) CAD (coronary artery disease): Plan Isma is a 72 yo M male w/ a PMHx of medication noncompliance, left lower extremity DVT, A-fib, CAD, MAMI, DM 2, and cognitive decline admitted with concern for sepsis and cellulitis. 1) Sepsis: - Unclear etiology, multiple sources - Leukocytosis resolving - Blood Cx negative - Vital signs WNL (2) Cellulitis: - MRSA nares + - Daptomycin day 10 since started - Received 7 doses to date due to order set (3) Urinary tract infection: - Klebsiella Pansensitve - Ceftriaxone x3 days - Cefdinir 300mg BID day 12/14 (4) L5 vertebral fracture: - Low concern for osteomyelitis Patient is covered with antibiotics as above Repeat MRI in 1 month. If patient has gram-positive bacteremia or worsening back pain could consider as inpt (5) Abdominal distension: - Likely 2/2 large stool burden, resolving with rectal tube CTAP: No gluteal ulcerations or abscesses. Stool bio fire/C. difficile: negative, C. diff, negative - trend CMPs (6) History of left lower extremity DVT Continue warfarin INR goal 23 - INR daily - Continue warfarin (7) Persistent atrial fibrillation: - Persistent atrial fibrillation Continue metoprolol 12.5 mg twice daily, can titrate as needed (8)CAD With history of PCI Continue metoprolol, aspirin, rosuvastatin Last echo with EF 55-59% 2018 (9) Obstructive sleep apnea: CPAP nightly (10) Diabetes (T2DM): Last A1c 7.2% Continue weight-based basal bolus Goal BSG [id number] DM2/heart healthy diet (11) Morbid obesity with BMI of 40.0-44.9, adult: Morbid obesity, BMI 41 Self-care deficit With progressive decline over last year, patient previously discharged to SNF with hope of transitioning to assisted living after this Psychiatry saw at prior hospitalization, confirmed he retains decision-making capacity Plan DVT prophylaxis: Anticoagulated Disposition: CODE STATUS: Full Surrogate decision maker would be patient's daughter Tricia available at [phone] Admission and Anticipated Discharge Date Admission Date: March 26, 2023 Supervising Physician Co-Signing Physician Notes I personally examined the patient and verified all siddiqi points of history and exam, discussed case, and agree with decision making with Dr Miramontes Resting comfortably. awake and has no complaints. just wonders when he'll be able to go to [facility]. Awaiting SNF. No new issues identified. Vitals noted, in general he is resting comfortably appears to be in no distress. Breathing unlabored no accessory muscle use good effort. Skin without rashes pallor or icterus. IMPRESSION & PLAN Sepsis -source - urine/skin/both; improved Cellulitis -daptomycin UTI -cefdinir for Klebsiella pneumonia Deconditioning/Ambulatory dysfunction -PT/OT recommend SNF, placement is pending (awaiting bed at [facility]) - stable when bed available Additional per resident documentation Subjective No acute events overnight. Patient seen and evaluated at bedside this morning. Pt feels he is improving daily. VSS. Labs reviewed and largely unremarkable. Denies WALTON, CP, SOB, N/V. LE edema present Review of Systems Review of Systems: reviewed, per HPI Physical Exam Physical Exam: General: patient resting comfortably, NAD, non-toxic in appearance, answers questions appropriately and follows commands. Skin: warm, dry, intact HEENT: NC/AT, anicteric sclera, conjunctiva without injection, moist mucus membranes Heart: +S1/S2, regular, no m/r/g Lungs: equal air entry bilaterally, no rales/rhonchi/wheezes Abd: +BS, soft, NT Ext: warm, b/l LE receding erythema decreased from initial demarcated region. Rash on b/l buttocks Neuro: nonfocal, speech intact, no facial droop, moving all extremities on command. Results & Data Results & Data Vital Signs (Past 12 Hours) Vital Signs Temp Pulse Resp BP Pulse Ox O2 Del Method 04/04/23 22:37 Room Air 04/04/23 19:25 36.6 C 89 18 100/63 96 Room Air (1) Sepsis Sepsis acute organ dysfunction status: with acute organ dysfunction Severe sepsis acute organ dysfunction type: unspecified Severe sepsis shock status: without septic shock
[2023-04-05] MEDS ORDERED: DAPTOmycin 550 MG in SYRINGE 0 ML IV ONE (16:16)
[2023-04-05] MEDS: DAPTOmycin 550 MG in SYRINGE 0 ML IV SCH (18:24)
--- NOTE | 2023-04-05 18:39 | Billing Data ---
Date of Service April 05, 2023 Coding Level of Care Code 09013 SUB INP/OBS CARE
[2023-04-06 06:29] LABS: Prothrombin Time 30.9 Seconds (9.0-12.0)
--- NOTE | 2023-04-06 13:34 | Hospitalist Progress Note ---
Date of Service April 06, 2023 Assessment & Plan (1) Sepsis: (2) Cellulitis: (3) L5 vertebral fracture: (4) Diabetes: (5) Urinary tract infection: (6) CAD (coronary artery disease): Plan Isma is a 72 yo M male w/ a PMHx of medication noncompliance, left lower extremity DVT, A-fib, CAD, MAMI, DM 2, and cognitive decline admitted with concern for sepsis and cellulitis. 1) Sepsis: - Unclear etiology, multiple sources - Leukocytosis resolving - Blood Cx negative - Vital signs WNL (2) Cellulitis: - MRSA nares + - Daptomycin day 10 since started - Received 9 doses to date due to order set continue for one more dose or until discharge (3) Urinary tract infection: - Klebsiella Pansensitve - Ceftriaxone x3 days - Cefdinir 300mg BID day 12/14 (4) L5 vertebral fracture: - Low concern for osteomyelitis Patient is covered with antibiotics as above Repeat MRI in 1 month. If patient has gram-positive bacteremia or worsening back pain could consider as inpt (5) Abdominal distension: - Likely 2/2 large stool burden, resolving with rectal tube CTAP: No gluteal ulcerations or abscesses. Stool bio fire/C. difficile: negative, C. diff, negative - trend CMPs (6) History of left lower extremity DVT Continue warfarin INR goal 23 - INR daily - Continue warfarin (7) Persistent atrial fibrillation: - Persistent atrial fibrillation Continue metoprolol 12.5 mg twice daily, can titrate as needed (8)CAD With history of PCI Continue metoprolol, aspirin, rosuvastatin Last echo with EF 55-59% 2018 (9) Obstructive sleep apnea: CPAP nightly (10) Diabetes (T2DM): Last A1c 7.2% Continue weight-based basal bolus Goal BSG [id number] DM2/heart healthy diet (11) Morbid obesity with BMI of 40.0-44.9, adult: Morbid obesity, BMI 41 Self-care deficit With progressive decline over last year, patient previously discharged to SNF with hope of transitioning to assisted living after this Psychiatry saw at prior hospitalization, confirmed he retains decision-making capacity Plan DVT prophylaxis: Anticoagulated Disposition: CODE STATUS: Full Surrogate decision maker would be patient's daughter Tricia available at [phone] Admission and Anticipated Discharge Date Admission Date: March 26, 2023 Supervising Physician Co-Signing Physician Notes I personally examined the patient and verified all siddiqi points of history and exam, discussed case, and agree with decision making with Dr Miramontes still waiting on disposition, no new issues. Vitals noted, in general he is resting comfortably appears to be in no distress. Breathing unlabored no accessory muscle use good effort. Skin without rashes pallor or icterus. IMPRESSION & PLAN Sepsis -source - urine/skin/both; improved Cellulitis -daptomycin UTI -cefdinir for Klebsiella pneumonia Deconditioning/Ambulatory dysfunction -PT/OT recommend SNF, placement is pending (awaiting bed at [facility]) - stable when bed available, hopefully soon Additional per resident documentation Subjective No acute events overnight. Patient seen and evaluated at bedside this morning. Pt states he feels well today. VSS. Denies WALTON, CP, SOB, N/V. LE edema present. Plan for discharge to [facility] once a bed becomes available. Review of Systems Review of Systems: reviewed, per HPI Physical Exam Physical Exam: General: patient resting comfortably, NAD, non-toxic in appearance, answers questions appropriately and follows commands. Skin: warm, dry, intact HEENT: NC/AT, anicteric sclera, conjunctiva without injection, moist mucus membranes Heart: +S1/S2, regular, no m/r/g Lungs: equal air entry bilaterally, no rales/rhonchi/wheezes Abd: +BS, soft, NT Ext: warm, b/l LE receding erythema decreased from initial demarcated region. Rash on b/l buttocks Neuro: nonfocal, speech intact, no facial droop, moving all extremities on command. Results & Data Results & Data Vital Signs (Past 12 Hours) Vital Signs Temp Pulse Resp BP Pulse Ox O2 Del Method 04/06/23 08:54 Room Air 04/06/23 07:32 36.8 C 91 H 18 97/59 L 93 Room Air (1) Sepsis Sepsis acute organ dysfunction status: with acute organ dysfunction Severe sepsis acute organ dysfunction type: unspecified Severe sepsis shock status: without septic shock
--- NOTE | 2023-04-06 20:06 | Billing Data ---
Date of Service April 06, 2023 Coding Level of Care Code 97867 SUB INP/OBS CARE
--- NOTE | 2023-04-07 15:42 | Hospitalist Progress Note ---
Date of Service April 07, 2023 Assessment & Plan (1) Sepsis: (2) Cellulitis: (3) L5 vertebral fracture: (4) Diabetes: (5) Urinary tract infection: (6) CAD (coronary artery disease): Plan Isma is a 72 yo M male w/ a PMHx of medication noncompliance, left lower extremity DVT, A-fib, CAD, MAMI, DM 2, and cognitive decline admitted with concern for sepsis and cellulitis. 1) Sepsis: - Unclear etiology, multiple sources - Leukocytosis resolving - Blood Cx negative - Vital signs WNL (2) Cellulitis: - MRSA nares + - Daptomycin day 10 since started - 12/14 doses received (3) Urinary tract infection: - Klebsiella Pansensitive - Ceftriaxone x3 days - Cefdinir 300mg BID day 12/14 (4) L5 vertebral fracture: - Low concern for osteomyelitis Patient is covered with antibiotics as above Repeat MRI in 1 month. If patient has gram-positive bacteremia or worsening back pain could consider as inpt (5) Abdominal distension: - Likely 2/2 large stool burden, resolving with rectal tube CTAP: No gluteal ulcerations or abscesses. Stool bio fire/C. difficile: negative, C. diff, negative - trend CMPs (6) History of left lower extremity DVT Continue warfarin INR goal 23 - INR daily - Continue warfarin (7) Persistent atrial fibrillation: - Persistent atrial fibrillation Continue metoprolol 12.5 mg twice daily, can titrate as needed (8)CAD With history of PCI Continue metoprolol, aspirin, rosuvastatin Last echo with EF 55-59% 2018 (9) Obstructive sleep apnea: CPAP nightly (10) Diabetes (T2DM): Last A1c 7.2% Continue weight-based basal bolus Goal BSG [id number] DM2/heart healthy diet (11) Morbid obesity with BMI of 40.0-44.9, adult: Morbid obesity, BMI 41 Self-care deficit With progressive decline over last year, patient previously discharged to SNF with hope of transitioning to assisted living after this Psychiatry saw at prior hospitalization, confirmed he retains decision-making capacity Plan DVT prophylaxis: Anticoagulated Disposition: CODE STATUS: Full Surrogate decision maker would be patient's daughter Tricia available at [phone] Admission and Anticipated Discharge Date Admission Date: March 26, 2023 Supervising Physician Co-Signing Physician Notes I personally examined the patient and verified all siddiqi points of history and exam, discussed case, and agree with decision making with Dr Miramontes still waiting on bureaucracy, no new issues. Vitals noted, in general he is resting comfortably appears to be in no distress. Breathing unlabored no accessory muscle use good effort. Skin without rashes pallor or icterus. IMPRESSION & PLAN Sepsis -source - urine/skin/both; improved Cellulitis -daptomycin UTI -cefdinir for Klebsiella pneumonia afib - rate slightly higher this AM but improved through today; anticoagulated w coumadin Deconditioning/Ambulatory dysfunction -PT/OT recommend SNF, placement is pending (awaiting bed at [facility]) - stable when bed available, hopefully soon Additional per resident documentation Subjective No acute events overnight. Patient seen and evaluated at bedside this morning. Pt states he feels well today. VSS. Denies WALTON, CP, SOB, N/V. LE edema present. Plan for discharge to [facility] once a bed becomes available. Review of Systems Review of Systems: reviewed, per HPI Physical Exam Physical Exam: General: patient resting comfortably, NAD, non-toxic in appearance, answers questions appropriately and follows commands. Skin: warm, dry, intact HEENT: NC/AT, anicteric sclera, conjunctiva without injection, moist mucus membranes Heart: +S1/S2, regular, no m/r/g Lungs: equal air entry bilaterally, no rales/rhonchi/wheezes Abd: +BS, soft, NT Ext: warm, b/l LE receding erythema decreased from initial demarcated region. Rash on b/l buttocks Neuro: nonfocal, speech intact, no facial droop, moving all extremities on command. Results & Data Results & Data Vital Signs (Past 12 Hours) Vital Signs Temp Pulse Resp BP Pulse Ox O2 Del Method 04/07/23 14:45 36.8 C 93 H 18 114/75 96 Room Air 04/07/23 08:00 Room Air 04/07/23 07:51 36.3 C L 115 H 18 91/59 L 94 Room Air (1) Sepsis Sepsis acute organ dysfunction status: with acute organ dysfunction Severe sepsis acute organ dysfunction type: unspecified Severe sepsis shock status: without septic shock
--- NOTE | 2023-04-07 16:17 | Billing Data ---
Date of Service April 07, 2023 Coding Level of Care Code 52255 SUB INP/OBS CARE
--- NOTE | 2023-04-07 16:18 | Billing Data ---
Date of Service April 07, 2023 Coding Level of Care Code 05906 SUB INP/OBS CARE
[2023-04-07 22:18] LABS: BUN Creatinine Ratio 21.2 (10-20); Creatinine Clr Calc Pharmacy 124.5 ml/min; Est GFR (African American) 111.2 ml/min; Est GFR (Non-African American) 95.9 ml/min; Magnesium 1.8 mg/dl (1.7-2.4)
[2023-04-07] MEDS: MAGNESIUM SULFATE / D5W 1 GM/100 ML BAG IV SCH (22:55)
[2023-04-07] MEDS: SODIUM CHLORIDE 0.9% 1,000 ML IV SCH (22:55)
[2023-04-08] MEDS: SODIUM CHLORIDE 0.9% 250 ML IV ONE (00:50)
[2023-04-08] MEDS: METOPROLOL TARTRATE 1 MG/ML VIAL IV STA (01:29)
[2023-04-08 06:09] LABS: Hematocrit (blood only) 41.8 % (42.0-52.0); Hemoglobin 14.4 g/dl (14.0-18.0); Mean Corpuscular Hemoglobin 30.4 pg (25.0-34.0); Mean Corpuscular Hgb Conc 34.4 g/dL (32.0-36.0); Mean Corpuscular Volume 88.4 fL (80.0-100.0); Platelet Count 311 K/uL (130-400); RDW Coefficient of Variation 14.1 % (11.5-14.5); RDW Standard Deviation 45.3 fL (36.4-46.3); Red Blood Count 4.73 M/uL (4.70-6.10); White Blood Count 9.08 K/ul (4.8-10.8)
[2023-04-08 06:29] LABS: BUN Creatinine Ratio 16.7 (10-20); Calcium 8.6 mg/dl (8.6-10.3); Creatinine Clr Calc Pharmacy 124.2 ml/min; Est GFR (African American) 111.2 ml/min; Est GFR (Non-African American) 95.9 ml/min; Magnesium 2.1 mg/dl (1.7-2.4)
[2023-04-08 06:32] LABS: INR 2.8 (0.9-1.1); Prothrombin Time 28.3 Seconds (9.0-12.0)
[2023-04-08] MEDS: CHOLECALCIFEROL 25 MCG (1000 UNITS) TAB PO SCH (09:40)
--- NOTE | 2023-04-08 10:29 | Hospitalist Progress Note ---
Date of Service April 08, 2023 Assessment & Plan (1) Sepsis: (2) Cellulitis: (3) L5 vertebral fracture: (4) Diabetes: (5) Urinary tract infection: (6) CAD (coronary artery disease): Plan Isma is a 72 yo M male w/ a PMHx of medication noncompliance, left lower extremity DVT, A-fib, CAD, MAMI, DM 2, and cognitive decline admitted with concern for sepsis and cellulitis. 1) Sepsis: - Unclear etiology, multiple sources - Leukocytosis resolving - Blood Cx negative - Vital signs WNL (2) Cellulitis: - MRSA nares + - Daptomycin day 10 since started - 12/14 doses received (3) Urinary tract infection: - Klebsiella Pansensitive - Ceftriaxone x3 days - Cefdinir 300mg BID day 12/14 (4) L5 vertebral fracture: - Low concern for osteomyelitis Patient is covered with antibiotics as above Repeat MRI in 1 month. If patient has gram-positive bacteremia or worsening back pain could consider as inpt (5) Abdominal distension: - Likely 2/2 large stool burden, resolving with rectal tube CTAP: No gluteal ulcerations or abscesses. Stool bio fire/C. difficile: negative, C. diff, negative - trend CMPs (6) History of left lower extremity DVT Continue warfarin INR goal 23 - INR daily - Continue warfarin (7) Persistent atrial fibrillation: - Persistent atrial fibrillation Continue metoprolol 12.5 mg twice daily, can titrate as needed - 5mg Verapamil x1 IV (8)CAD With history of PCI Continue metoprolol, aspirin, rosuvastatin Last echo with EF 55-59% 2018 (9) Obstructive sleep apnea: CPAP nightly (10) Diabetes (T2DM): Last A1c 7.2% Continue weight-based basal bolus Goal BSG [id number] DM2/heart healthy diet (11) Morbid obesity with BMI of 40.0-44.9, adult: Morbid obesity, BMI 41 Self-care deficit With progressive decline over last year, patient previously discharged to SNF with hope of transitioning to assisted living after this Psychiatry saw at prior hospitalization, confirmed he retains decision-making capacity Plan DVT prophylaxis: Anticoagulated Disposition: CODE STATUS: Full Surrogate decision maker would be patient's daughter Tricia available at [phone] Admission and Anticipated Discharge Date Admission Date: March 26, 2023 Supervising Physician Co-Signing Physician Notes I personally examined the patient and verified all siddiqi points of history and exam, discussed case, and agree with decision making with Dr Miramontes after waiting all week for anticipation of a bed at [facility], they now inform us that they cannot take him. unfortunately this now means that we will have to essentially "start over" on safe dispo planning, informed pt of this. Vitals noted, in general he is resting comfortably appears to be in no distress. Breathing unlabored no accessory muscle use good effort. Skin without rashes pallor or icterus. IMPRESSION & PLAN Sepsis -source - urine/skin/both; improved Cellulitis -treated with daptomycin UTI -treated with cefdinir for Klebsiella pneumonia afib - anticoagulated. rates up some - resident physician noted that on review, metoprolol held at times due to BP parameters, but pt runs chronically between normal and low normal - hold parameters changed. Deconditioning/Ambulatory dysfunction -PT/OT recommend SNF, placement is pending (after a week of knowing that we were anticipating a bed at [facility], today they tell us that they cannot accept him) - stable when bed available Additional per resident documentation Subjective Afib w/ RVR overnight. Received 2.5mg IV Lopressor with good response. Patient seen and evaluated at bedside this morning. Pt states he feels well today. VSS. Denies WALTON, CP, SOB, N/V. LE edema present. Plan for discharge once a bed becomes available. Review of Systems Review of Systems: reviewed, per HPI Physical Exam Physical Exam: General: patient resting comfortably, NAD, non-toxic in appearance, answers questions appropriately and follows commands. Skin: warm, dry, intact HEENT: NC/AT, anicteric sclera, conjunctiva without injection, moist mucus membranes Heart: +S1/S2, regular, no m/r/g Lungs: equal air entry bilaterally, no rales/rhonchi/wheezes Abd: +BS, soft, NT Ext: warm, b/l LE receding erythema decreased from initial demarcated region. Rash on b/l buttocks Neuro: nonfocal, speech intact, no facial droop, moving all extremities on command. Results & Data Results & Data Vital Signs (Past 12 Hours) Vital Signs Temp Pulse Pulse Pulse Resp BP BP 04/08/23 07:37 36.5 C 72 18 95/62 L 04/08/23 07:19 122 H 04/08/23 03:38 36.5 C 75 97/64 L 04/08/23 03:33 113 H 04/08/23 02:23 112 H 117/90 04/08/23 01:25 117/86 04/07/23 23:47 37 C 126 H 91/53 L Pulse Ox O2 Del Method 04/08/23 07:37 94 Room Air 04/08/23 07:19 04/08/23 03:38 94 Room Air 04/08/23 03:33 04/08/23 02:23 04/08/23 01:25 04/07/23 23:47 92 Room Air (1) Sepsis Sepsis acute organ dysfunction status: with acute organ dysfunction Severe sepsis acute organ dysfunction type: unspecified Severe sepsis shock status: without septic shock
[2023-04-08] MEDS: VERAPAMIL HCL 2.5 MG/ML 2 ML VIAL IV ONE (12:27)
--- NOTE | 2023-04-08 13:11 | Billing Data ---
Date of Service April 08, 2023 Coding Level of Care Code 99173 SUB INP/OBS CARE
[2023-04-08] MEDS: EUCERIN CR 120 GM JAR EXT SCH (20:53)
--- NOTE | 2023-04-09 07:48 | Hospitalist Progress Note ---
Date of Service April 09, 2023 Assessment & Plan (1) Sepsis: (2) Cellulitis: (3) L5 vertebral fracture: (4) Diabetes: (5) Urinary tract infection: (6) CAD (coronary artery disease): Plan Isma is a 72 yo M male w/ a PMHx of medication noncompliance, left lower extremity DVT, A-fib, CAD, MAMI, DM 2, and cognitive decline admitted with concern for sepsis and cellulitis. Persistent atrial fibrillation: - Persistent atrial fibrillation Continue metoprolol 12.5 mg twice daily, can titrate as needed, watch BP - 5mg Verapamil x1 IV on 2/2 -HR up to 170- resolved after IV Digoxin and bolus Self-care deficit Deconditioning/ Ambulatory deficiency With progressive decline over last year, patient previously discharged to SNF with hope of transitioning to assisted living after this Psychiatry saw at prior hospitalization, confirmed he retains decision-making capacity - PT/OT recommend SNF, placement is pending Sepsis- resolved - Unclear etiology, multiple sources - Leukocytosis resolved - Blood Cx negative - Vital signs WNL Cellulitis -resolved - MRSA nares + - Finished Daptomycin Urinary tract infection - resolved - Klebsiella, Pansensitive - Finished Ceftriaxone and Cefdinir 300mg BID L5 vertebral fracture: - Low concern for osteomyelitis Repeat MRI in 1 month. Abdominal distension: - Likely 2/2 large stool burden, resolving with rectal tube CTAP: No gluteal ulcerations or abscesses. Stool bio fire/C. difficile: negative, C. diff, negative History of left lower extremity DVT Continue warfarin INR goal 23 - INR daily - Continue warfarin CAD With history of PCI Continue metoprolol, aspirin, rosuvastatin Last echo with EF 55-59% 2018 Obstructive sleep apnea: CPAP nightly Diabetes (T2DM): Last A1c 7.2% Continue weight-based basal bolus Goal BSG [id number] DM2/heart healthy diet Plan DVT prophylaxis: Anticoagulated Disposition: CODE STATUS: Full Surrogate decision maker would be patient's daughter Tricia available at [phone] Admission and Anticipated Discharge Date Admission Date: March 26, 2023 Supervising Physician Co-Signing Physician Notes I personally examined the patient and verified all siddiqi points of history and exam, discussed case, and agree with decision making with Dr Humberto kentib a little fast but pt has not felt racing/palpitations/cp/montero. Vitals noted, in general aao pleasant nad. Breathing unlabored no accessory muscle use good effort. Skin without rashes pallor or icterus. IMPRESSION & PLAN Sepsis -source - urine/skin/both; improved Cellulitis -treated with daptomycin UTI -treated with cefdinir for Klebsiella pneumonia afib - anticoagulated. rates up some - fluids given. asymptomatic but higher than he's been running - other than maybe being a bit dry nothing acute appears to be driving a reflext tachy - may all just be mild RVR. given BP too low to really escalate beta windy, will give small amount of digoxine for now Deconditioning/Ambulatory dysfunction -PT/OT recommend SNF, placement is pending (after a week of knowing that we were anticipating a bed at [facility], they then tell us that they cannot accept him) - stable when bed available Additional per resident documentation Subjective HR up to 170s this morning on Afib. BP on 90/58. IV digoxin and IV bolus but patient return to SR on his own while having BMs. Patient seen and evaluated at bedside this morning. PT completely asymptomatic, no chest pain, palpitations, SOB, or presyncope Denies WALTON, CP, SOB, N/V. LE edema present. Pending placement to SNF. Review of Systems Review of Systems: reviewed, per HPI Physical Exam Physical Exam: General: patient resting comfortably, NAD, non-toxic in appearance, answers questions appropriately and follows commands. Skin: warm, dry, intact HEENT: NC/AT, anicteric sclera, conjunctiva without injection, moist mucus membranes Heart: +S1/S2, regular, no m/r/g Lungs: equal air entry bilaterally, no rales/rhonchi/wheezes Abd: +BS, soft, NT Ext: warm, b/l LE receding erythema decreased from initial demarcated region. Rash on b/l buttocks Neuro: nonfocal, speech intact, no facial droop, moving all extremities on command. Results & Data Results & Data Vital Signs (Past 12 Hours) Vital Signs Temp Pulse Pulse Resp BP Pulse Ox O2 Del Method 04/09/23 03:53 36.5 C 118 H 18 107/75 96 Room Air 04/08/23 23:42 115 H 04/08/23 23:17 36.8 C 134 H 18 112/67 96 Room Air Resident Activity Tracking Resident Involvement: Resident Care Provided Care Provided: Adult Hospital Medicine (1) Sepsis Sepsis acute organ dysfunction status: with acute organ dysfunction Severe sepsis acute organ dysfunction type: unspecified Severe sepsis shock status: without septic shock
[2023-04-09] MEDS: DIGOXIN 0.125 MG TAB PO ONE (08:55)
[2023-04-09] MEDS: LACTATED RINGER'S 1,000 ML IV SCH (09:19)
--- NOTE | 2023-04-09 12:45 | Electrocardiogram Report ---
Test Reason : Blood Pressure : / mmHG Vent. Rate : 141 BPM Atrial Rate : 117 BPM P-R Int : 000 ms QRS Dur : 070 ms QT Int : 300 ms P-R-T Axes : 000 083 -60 degrees QTc Int : 459 ms Atrial fibrillation with rapid ventricular response Low voltage QRS Nonspecific ST and T wave abnormality Abnormal ECG When compared with ECG of 26-MAR-2023 18:41, Atrial fibrillation has replaced Sinus rhythm Confirmed by Jimmy Lanier ([id number]) on 04/09/2023 12:45:04 PM Referred By: REFERRED SELF Confirmed By:Jimmy Lanier
--- NOTE | 2023-04-09 16:13 | Billing Data ---
Date of Service April 09, 2023 Coding Level of Care Code 61940 SUB INP/OBS CARE
[2023-04-10 06:32] LABS: BUN Creatinine Ratio 15.5 (10-20); Calcium 8.8 mg/dl (8.6-10.3); Creatinine Clr Calc Pharmacy 141.8 ml/min; Est GFR (African American) 117.2 ml/min; Est GFR (Non-African American) 101.1 ml/min; Magnesium 1.9 mg/dl (1.7-2.4)
[2023-04-10 06:56] LABS: Prothrombin Time 30.9 Seconds (9.0-12.0)
--- NOTE | 2023-04-10 07:30 | Hospitalist Progress Note ---
Date of Service April 10, 2023 Assessment & Plan (1) Sepsis: (2) Cellulitis: (3) L5 vertebral fracture: (4) Diabetes: (5) Urinary tract infection: (6) CAD (coronary artery disease): Plan Isma is a 72 yo M male w/ a PMHx of medication noncompliance, left lower extremity DVT, A-fib, CAD, MAMI, DM 2, and cognitive decline admitted with concern for sepsis and cellulitis. Persistent atrial fibrillation - stable - Persistent atrial fibrillation Continue metoprolol 12.5 mg twice daily, can titrate as needed, watch BP - 5mg Verapamil x1 IV on 2/2 -HR up to 170- resolved after IV Digoxin and bolus Self-care deficit Deconditioning/ Ambulatory deficiency With progressive decline over last year, patient previously discharged to SNF with hope of transitioning to assisted living after this - PT/OT recommend SNF, placement is pending. CM following Sepsis- resolved - Leukocytosis resolved - Blood Cx negative - Vital signs WNL Cellulitis -resolved - MRSA nares + - Completed Daptomycin regimen Urinary tract infection - resolved - Klebsiella, Pansensitive - Finished Ceftriaxone and Cefdinir L5 vertebral fracture: - Low concern for osteomyelitis Repeat MRI in 1 month. Abdominal distension: - Likely 2/2 large stool burden, resolving with rectal tube CTAP: No gluteal ulcerations or abscesses. Stool bio fire/C. difficile: negative, C. diff, negative History of left lower extremity DVT Continue warfarin INR goal 23 - INR daily - Continue warfarin CAD With history of PCI Continue metoprolol, aspirin, rosuvastatin Last echo with EF 55-59% 2018 Obstructive sleep apnea: CPAP nightly Diabetes (T2DM): Last A1c 7.2% Continue weight-based basal bolus Goal BSG [id number] DM2/heart healthy diet Plan DVT prophylaxis: Anticoagulated- Warfarin Disposition: Pending placement CODE STATUS: Full Surrogate decision maker would be patient's daughter Tricia available at [phone] Admission and Anticipated Discharge Date Admission Date: March 26, 2023 Supervising Physician Co-Signing Physician Notes I personally examined the patient and verified all siddiqi points of history and exam, discussed case, and agree with decision making with Dr Humberto Holcomb resting comfortably no new issues identified. Vitals noted, in general resting nad. Breathing unlabored no accessory muscle use good effort. Skin without rashes pallor or icterus. IMPRESSION & PLAN Sepsis -source - urine/skin/both; improved Cellulitis -treated with daptomycin UTI -treated with cefdinir for Klebsiella pneumonia afib - anticoagulated. rates more reasonable today Deconditioning/Ambulatory dysfunction -PT/OT recommend SNF, placement is pending (after a week of knowing that we were anticipating a bed at [facility], they then tell us that they cannot accept him) - stable when bed available Additional per resident documentation Subjective No events overnight, HR on 80s overnight. Patient was asleep while rounding. No use of accessory. HR at 96, saturating at 95% . Medically cleared, waiting for placement. Case management following Review of Systems Review of Systems: reviewed, per HPI Physical Exam Physical Exam: General: patient asleep resting comfortably, NAD, non-toxic in appearance Skin: warm, dry, intact Respiratory: normal respiratory effort; no respiratory distress and no labored breathing Results & Data Results & Data Vital Signs (Past 12 Hours) Vital Signs Temp Pulse Pulse Resp BP Pulse Ox O2 Del Method 04/10/23 02:11 36.5 C 90 18 93/62 L 94 Room Air 04/10/23 00:29 86 04/09/23 23:32 36.4 C L 91 H 18 96/54 L 93 Room Air 04/09/23 19:53 36.5 C 94 H 18 106/70 96 Room Air Resident Activity Tracking Resident Involvement: Resident Care Provided Care Provided: Adult Hospital Medicine (1) Sepsis Sepsis acute organ dysfunction status: with acute organ dysfunction Severe sepsis acute organ dysfunction type: unspecified Severe sepsis shock status: without septic shock
--- NOTE | 2023-04-10 15:12 | Billing Data ---
Date of Service April 10, 2023 Coding Level of Care Code 47688 SUB INP/OBS CARE
--- NOTE | 2023-04-11 07:04 | Hospitalist Progress Note ---
Date of Service April 11, 2023 Assessment & Plan (1) Sepsis: (2) Cellulitis: (3) L5 vertebral fracture: (4) Diabetes: (5) Urinary tract infection: (6) CAD (coronary artery disease): Plan Isma is a 72 yo M male w/ a PMHx of medication noncompliance, left lower extremity DVT, A-fib, CAD, MAMI, T2DM, and cognitive decline admitted with concern for sepsis and cellulitis. Persistent atrial fibrillation - stable - Persistent atrial fibrillation Continue metoprolol 12.5 mg twice daily, can titrate as needed, watch BP - 5mg Verapamil x1 IV on 2/2 - HR up to 170, resolved after IV Digoxin and bolus on 04/09 - pt has been in normal sinus rhythm for last 48 hrs, downgraded care level Self-care deficit Deconditioning/ Ambulatory deficiency With progressive decline over last year, patient previously discharged to SNF with hope of transitioning to assisted living after this - PT/OT recommend SNF, placement is pending. CM following Sepsis- resolved - Leukocytosis resolved - Blood Cx negative - Vital signs WNL Cellulitis -resolved - MRSA nares + - Completed daptomycin regimen Urinary tract infection - resolved - Klebsiella, Pansensitive - Finished Ceftriaxone and Cefdinir L5 vertebral fracture: - Low concern for osteomyelitis Repeat MRI in 1 month. Abdominal distension: - Likely 2/2 large stool burden, resolving with rectal tube CTAP: No gluteal ulcerations or abscesses. Stool bio fire/C. difficile: negative, C. diff, negative History of left lower extremity DVT Continue warfarin INR goal 23 - INR every other day - Continue warfarin, 5 mg/10 mg alternating days CAD With history of PCI Continue metoprolol, aspirin, rosuvastatin Last echo with EF 55-59% 2018 Obstructive sleep apnea: CPAP nightly Diabetes (T2DM): Last A1c 7.2% Continue weight-based basal bolus Goal BSG [id number] DM2/heart healthy diet Plan DVT prophylaxis: Anticoagulated- Warfarin Disposition: Pending placement CODE STATUS: Full Surrogate decision maker would be patient's daughter Tricia available at Admission and Anticipated Discharge Date Admission Date: March 26, 2023 Supervising Physician Co-Signing Physician Notes Attending Physician Supervision Note: I independently interviewed and examined the patient and verified the siddiqi history and physical, reviewed labs and image studies and agree with findings and care plan noted above. resting comfortably no new issues identified. Vitals noted, in general resting nad. Breathing unlabored no accessory muscle use good effort. Skin without rashes pallor or icterus. IMPRESSION & PLAN Sepsis -source - urine/skin/both; improved Cellulitis -treated with daptomycin UTI -treated with cefdinir for Klebsiella pneumonia PAF - anticoagulated. rates controlled - metoprolol 12.5mgs bid. Deconditioning/Ambulatory dysfunction -PT/OT recommend SNF, placement is pending (after a week of knowing that we were anticipating a bed at [facility], they then tell us that they cannot accept him) - stable when bed available Additional per resident documentation Subjective No events overnight, has been in sinus rhythm for 48 hrs. Patient doesn't endorse any CP, palpitations, dizziness/lightheadedness. Patient AAO x 2. Patient conversant, pleasant, able to joke around. Pt endorses some r. buttock pain at rest but nothing else. All other pain only felt w/ palpation. Medically cleared, waiting for placement. Case management following. Review of Systems Review of Systems: reviewed, per HPI Constitutional: no fever, no chills and no weakness Respiratory: no cough, no chest congestion and no dyspnea Cardiovascular: + chest pain (only when he's in AFib), + palpitations (during AFib episodes) and + lightheadedness Gastrointestinal: + diarrhea/loose stools (when taking Kris alax); no abdominal pain, no bloating, no nausea, no vomiting and no constipation Genitourinary: no dysuria or no urinary frequency Integumentary: + skin ulcer and + erythema Neurologic: no tingling and no numbness Physical Exam Constitutional: + ill appearing and + morbidly obese Respiratory: normal respiratory effort, lungs clear to auscultation Cardiovascular: RRR, no murmur, no edema Gastrointestinal (Abdomen): Inspection/Auscultation: normal bowel sounds Percussion/Palpation: abdomen nontender and abdomen not rigid Skin: + lesion, + ulcer (superficial stress ul cer on r. buttock, erythematous) and + erythema (warmth, erythema on RLE and LLE bilaterally) Psychiatric: Orientation: oriented to person, oriented to time and cooperative; + not oriented to place (not oriented to state, city, ) Results & Data Results & Data Vital Signs (Past 12 Hours) Vital Signs Temp Pulse Pulse Resp BP BP Pulse Ox 04/11/23 04:09 95 04/11/23 03:58 36.6 C 91 H 20 103/65 91 04/10/23 23:11 36.6 C 85 21 105/67 93 04/10/23 22:45 04/10/23 22:34 92 H 109/68 04/10/23 21:56 87 04/10/23 19:19 36.7 C 96 H 18 98/61 L 95 O2 Del Method 04/11/23 04:09 Room Air 04/11/23 03:58 Room Air 04/10/23 23:11 Room Air 04/10/23 22:45 Room Air 04/10/23 22:34 04/10/23 21:56 04/10/23 19:19 Room Air Resident Activity Tracking Resident Involvement: Resident Care Provided Care Provided: Adult Hospital Medicine (1) Sepsis Sepsis acute organ dysfunction status: with acute organ dysfunction Severe sepsis acute organ dysfunction type: unspecified Severe sepsis shock status: without septic shock
[2023-04-12 04:40] LABS: INR 3.5 (0.9-1.1); Prothrombin Time 35.6 Seconds (9.0-12.0)
--- NOTE | 2023-04-12 07:01 | Hospitalist Progress Note ---
Date of Service April 12, 2023 Assessment & Plan (1) Cellulitis: (2) Sepsis: (3) L5 vertebral fracture: (4) Diabetes: (5) Urinary tract infection: (6) CAD (coronary artery disease): Plan Isma is a 72 yo M male w/ a PMHx of medication noncompliance, left lower extremity DVT, A-fib, CAD, MAMI, T2DM, and cognitive decline admitted with concern for sepsis and cellulitis. Persistent atrial fibrillation - stable - Persistent atrial fibrillation Continue metoprolol 12.5 mg twice daily, can titrate as needed, watch BP - 5mg Verapamil x1 IV on 2/2 - HR up to 170, resolved after IV Digoxin and bolus on 04/09 - pt has been in normal sinus rhythm for last 48 hrs, downgraded care level to Med-Tele Self-care deficit Deconditioning/ Ambulatory deficiency With progressive decline over last year, patient previously discharged to SNF with hope of transitioning to assisted living after this - PT/OT recommend SNF, placement is pending. CM following -CM update: Sherie at [facility] (pt's previous residence) stated they wanted rehab for pt before returning to [facility]; Francisca at [facility] said facility can't accpet him; waiting to hear from [facility] Sepsis- resolved - Leukocytosis resolved - Blood Cx negative - Vital signs WNL Cellulitis -resolved - MRSA nares + - Completed daptomycin regimen Urinary tract infection - resolved - Klebsiella, Pansensitive - Finished Ceftriaxone and Cefdinir L5 vertebral fracture: - Low concern for osteomyelitis Repeat MRI in 1 month. Abdominal distension: - Likely 2/2 large stool burden, resolving with rectal tube CTAP: No gluteal ulcerations or abscesses. Stool bio fire/C. difficile: negative, C. diff, negative History of left lower extremity DVT Continue warfarin INR goal 23 - INR every other day - Continue warfarin, 5 mg/10 mg alternating days - Warfarin, 5mg today instead of 10 mg (due to INR was 3.5) CAD With history of PCI Continue metoprolol, aspirin, rosuvastatin Last echo with EF 55-59% 2018 Obstructive sleep apnea: CPAP nightly Diabetes (T2DM): Last A1c 7.2% Continue weight-based basal bolus Goal BSG [id number] DM2/heart healthy diet Plan DVT prophylaxis: Anticoagulated- Warfarin Disposition: Pending placement CODE STATUS: Full Surrogate decision maker would be patient's daughter Tricia available at [phone] Admission and Anticipated Discharge Date Admission Date: March 26, 2023 Supervising Physician Co-Signing Physician Notes Attending Physician Supervision Note: I independently interviewed and examined the patient and verified the siddiqi history and physical, reviewed labs and image studies and agree with findings and care plan noted above. no concerns resting comfortably no new issues identified. Vitals noted, in general resting nad. Breathing unlabored no accessory muscle use good effort. Skin without rashes pallor or icterus. IMPRESSION & PLAN Sepsis -source - urine/skin/both; improved Cellulitis -treated with daptomycin UTI -treated with cefdinir for Klebsiella pneumonia PAF - anticoagulated. rates controlled - metoprolol 12.5mgs bid. Deconditioning/Ambulatory dysfunction -PT/OT recommend SNF, placement is pending - stable when bed available Estevez in place - sec to decub. follow for removal. Additional per resident documentation Subjective No events overnight, has been in sinus rhythm for 48 hrs. Patient doesn't endorse any CP, palpitations, dizziness/lightheadedness. Patient AAO x 2. Patient conversant, pleasant, able to joke around. Pt endorses some r. buttock pain at rest but nothing else. All other pain only felt w/ palpation. Medically cleared, waiting for placement. Case management following. Review of Systems Review of Systems: reviewed, per HPI Constitutional: no fever, no chills and no weakness Respiratory: no cough, no chest congestion and no dyspnea Cardiovascular: + chest pain (only when he's in AFib), + palpitations (during AFib episodes) and + lightheadedness Gastrointestinal: + diarrhea/loose stools (when taking Kris alax); no abdominal pain, no bloating, no nausea, no vomiting and no constipation Genitourinary: no dysuria or no urinary frequency Integumentary: + skin ulcer and + erythema Neurologic: no tingling and no numbness Physical Exam Constitutional: + ill appearing and + morbidly obese Respiratory: normal respiratory effort, lungs clear to auscultation Cardiovascular: RRR, no murmur, no edema Gastrointestinal (Abdomen): Inspection/Auscultation: + abdomen distended and normal bowel sounds Percussion/Palpation: abdomen nontender and abdomen not rigid Skin: + lesion, + ulcer (superficial stress ul cer on r. buttock, erythematous) and + erythema (warmth, erythema on RLE and LLE bilaterally) Psychiatric: A+Ox3, euthymic affect Orientation: oriented to person, oriented to time and cooperative; + not oriented to place (not oriented to state, city, ) Results & Data Results & Data Vital Signs (Past 12 Hours) Vital Signs Temp Pulse Pulse Resp BP BP Pulse Ox 04/12/23 03:21 36.6 C 79 16 96/63 L 94 04/11/23 22:05 83 04/11/23 22:00 36.6 C 81 18 108/66 96 04/11/23 21:59 81 110/72 04/11/23 20:03 36.5 C 85 16 102/63 95 O2 Del Method 04/12/23 03:21 Room Air 04/11/23 22:05 04/11/23 22:00 Room Air 04/11/23 21:59 04/11/23 20:03 Room Air (2) Sepsis Sepsis acute organ dysfunction status: with acute organ dysfunction Severe sepsis acute organ dysfunction type: unspecified Severe sepsis shock status: without septic shock
[2023-04-12] MEDS: WARFARIN SOD 5 MG TAB PO ONE (15:45)
--- NOTE | 2023-04-13 06:51 | Hospitalist Progress Note ---
Date of Service April 13, 2023 Assessment & Plan (1) Cellulitis: (2) Sepsis: (3) L5 vertebral fracture: (4) Diabetes: (5) Urinary tract infection: (6) CAD (coronary artery disease): Plan Isma is a 72 yo M male w/ a PMHx of medication noncompliance, left lower extremity DVT, A-fib, CAD, MAMI, T2DM, and cognitive decline admitted with concern for sepsis and cellulitis. Persistent atrial fibrillation - stable - Persistent atrial fibrillation Continue metoprolol 12.5 mg twice daily, can titrate as needed, watch BP - 5mg Verapamil x1 IV on 04/08 - HR went up to 170, resolved after IV Digoxin and bolus on 04/09 - pt was in normal rhythm 48 hrs-post last AFib episode, then downgraded care level to Med-Tele Self-care deficit Deconditioning/ Ambulatory deficiency With progressive decline over last year, patient previously discharged to SNF with hope of transitioning to assisted living after this - PT/OT recommend SNF, placement is pending. CM following -CM update: Sherie at [facility] (pt's previous residence) stated they wanted rehab for pt before returning to [facility]; Francisca at [facility] said facility can't accept him; waiting to hear from [facility] or other placement facility Sepsis- resolved - Leukocytosis resolved - Blood Cx negative - Vital signs WNL Cellulitis -resolved - MRSA nares + - Completed daptomycin regimen Urinary tract infection - resolved - Klebsiella, Pansensitive - Finished Ceftriaxone and Cefdinir L5 vertebral fracture: - Low concern for osteomyelitis Repeat MRI in 1 month. Abdominal distension: - Likely 2/2 large stool burden, resolving with rectal tube CTAP: No gluteal ulcerations or abscesses. Stool bio fire/C. difficile: negative, C. diff, negative History of left lower extremity DVT Continue warfarin INR goal 23 - INR every other day - Continue warfarin, 5 mg/10 mg alternating days - last INR was 3.5 CAD With history of PCI Continue metoprolol, aspirin, rosuvastatin Last echo with EF 55-59% 2018 Obstructive sleep apnea: CPAP nightly Diabetes (T2DM): Last A1c 7.2% Continue weight-based basal bolus Goal BSG [id number] DM2/heart healthy diet Plan DVT prophylaxis: Anticoagulated- Warfarin Disposition: Pending placement CODE STATUS: Full Surrogate decision maker would be patient's daughter Tricia available at [phone] Admission and Anticipated Discharge Date Admission Date: March 26, 2023 Supervising Physician Co-Signing Physician Notes Attending Physician Supervision Note: I independently interviewed and examined the patient and verified the siddiqi history and physical, reviewed labs and image studies and agree with findings and care plan noted above. no concerns resting comfortably no new issues identified. Vitals noted, in general resting nad. Breathing unlabored no accessory muscle use good effort. Skin without rashes pallor or icterus. IMPRESSION & PLAN Sepsis -source - urine/skin/both; improved Cellulitis -treated with daptomycin UTI -treated with cefdinir for Klebsiella pneumonia PAF - anticoagulated. rates controlled - metoprolol 12.5mgs bid. Deconditioning/Ambulatory dysfunction -PT/OT recommend SNF, placement is pending - stable when bed available Chronic indwelling foote cath - follow Additional per resident documentation Subjective No events overnight, has been in sinus rhythm for 48 hrs. Patient doesn't endorse any CP, palpitations, dizziness/lightheadedness. Patient AAO x 2. Patient conversant, pleasant, able to joke around. Pt endorses some r. buttock pain at rest but nothing else. All other pain only felt w/ palpation. Medically cleared, waiting for placement. Case management following. Review of Systems Review of Systems: reviewed, per HPI Constitutional: no fever, no chills and no weakness Respiratory: no cough, no chest congestion and no dyspnea Cardiovascular: + chest pain (only when he's in AFib), + palpitations (during AFib episodes) and + lightheadedness Gastrointestinal: + diarrhea/loose stools (when taking Kris alax); no abdominal pain, no bloating, no nausea, no vomiting and no constipation Genitourinary: no dysuria or no urinary frequency Integumentary: + skin ulcer and + erythema Neurologic: no tingling and no numbness Physical Exam Constitutional: + ill appearing and + morbidly obese Respiratory: normal respiratory effort, lungs clear to auscultation Cardiovascular: RRR, no murmur, no edema Gastrointestinal (Abdomen): Inspection/Auscultation: + abdomen distended and normal bowel sounds Percussion/Palpation: abdomen nontender and abdomen not rigid Skin: + lesion, + ulcer (superficial stress ul cer on r. buttock, erythematous) and + erythema (warmth, erythema on RLE and LLE bilaterally) Psychiatric: A+Ox3, euthymic affect Orientation: oriented to person, oriented to time and cooperative; + not oriented to place (not oriented to state, city, ) Results & Data Results & Data Vital Signs (Past 12 Hours) Vital Signs Temp Pulse Pulse Resp BP Pulse Ox O2 Del Method 04/13/23 02:34 36.4 C L 87 16 130/75 94 Room Air 04/13/23 02:05 94 H 04/12/23 22:52 36.7 C 87 20 110/72 93 Room Air 04/12/23 19:43 36.5 C 96 H 18 112/59 L 96 Room Air Resident Activity Tracking Resident Involvement: Resident Care Provided Care Provided: Adult Hospital Medicine (2) Sepsis Sepsis acute organ dysfunction status: with acute organ dysfunction Severe sepsis acute organ dysfunction type: unspecified Severe sepsis shock status: without septic shock
--- NOTE | 2023-04-14 07:01 | Hospitalist Progress Note ---
Date of Service April 14, 2023 Assessment & Plan (1) Cellulitis: (2) Sepsis: (3) L5 vertebral fracture: (4) Diabetes: (5) Urinary tract infection: (6) CAD (coronary artery disease): Plan Isma is a 72 yo M male w/ a PMHx of medication noncompliance, left lower extremity DVT, A-fib, CAD, MAMI, T2DM, and cognitive decline admitted with concern for sepsis and cellulitis. Persistent atrial fibrillation - stable - Persistent atrial fibrillation Continue metoprolol 12.5 mg twice daily, can titrate as needed, watch BP - 5mg Verapamil x1 IV on 04/08 - HR went up to 170, resolved after IV Digoxin and bolus on 04/09 - pt was in normal rhythm 48 hrs-post last AFib episode, then downgraded care level to Med-Tele Self-care deficit Deconditioning/ Ambulatory deficiency With progressive decline over last year, patient previously discharged to SNF with hope of transitioning to assisted living after this - PT/OT recommend SNF, placement is pending. CM following -CM update: Sherie at [facility] (pt's previous residence) stated they wanted rehab for pt before returning to [facility]; Francisca at [facility] said facility can't accept him; waiting to hear from [facility] or other placement facility Sepsis- resolved - Leukocytosis resolved - Blood Cx negative - Vital signs WNL Cellulitis -resolved - MRSA nares + - Completed daptomycin regimen Urinary tract infection - resolved - Klebsiella, Pansensitive - Finished Ceftriaxone and Cefdinir L5 vertebral fracture: - Low concern for osteomyelitis Repeat MRI in 1 month. Abdominal distension: - Likely 2/2 large stool burden, resolving with rectal tube CTAP: No gluteal ulcerations or abscesses. Stool bio fire/C. difficile: negative, C. diff, negative History of left lower extremity DVT Continue warfarin INR goal 23 - INR every other day - Continue warfarin, 5 mg/10 mg alternating days - last INR was 2.7 CAD With history of PCI Continue metoprolol, aspirin, rosuvastatin Last echo with EF 55-59% 2018 Obstructive sleep apnea: CPAP nightly Diabetes (T2DM): Last A1c 7.2% Continue weight-based basal bolus Goal BSG [id number] DM2/heart healthy diet Plan DVT prophylaxis: Anticoagulated- Warfarin Disposition: Pending placement CODE STATUS: Full Surrogate decision maker would be patient's daughter Tricia available at [phone] Admission and Anticipated Discharge Date Admission Date: March 26, 2023 Supervising Physician Co-Signing Physician Notes Attending Physician Supervision Note: I independently interviewed and examined the patient and verified the siddiqi history and physical, reviewed labs and image studies and agree with findings and care plan noted above. no concerns resting comfortably no new issues identified. Vitals noted, in general resting nad. Breathing unlabored no accessory muscle use good effort. Skin without rashes pallor or icterus. IMPRESSION & PLAN Sepsis -source - urine/skin/both; improved Cellulitis -treated with daptomycin UTI -treated with cefdinir for Klebsiella pneumonia PAF - anticoagulated. rates controlled - metoprolol 12.5mgs bid. Deconditioning/Ambulatory dysfunction -PT/OT recommend SNF, placement is pending - stable when bed available Chronic indwelling foote cath - no concerns. Additional per resident documentation Subjective No events overnight, has been in sinus rhythm for 48 hrs. Patient doesn't endorse any CP, palpitations, dizziness/lightheadedness. Patient AAO x 2. Patient conversant, pleasant, able to joke around. Pt endorses some r. buttock pain at rest but nothing else. All other pain only felt w/ palpation. Medically cleared, waiting for placement. Case management following and placement is tomorrow at [facility] at 11:00 AM. Review of Systems Review of Systems: reviewed, per HPI Constitutional: no fever, no chills and no weakness Respiratory: no cough, no chest congestion and no dyspnea Cardiovascular: + chest pain (only when he's in AFib), + palpitations (during AFib episodes) and + lightheadedness Gastrointestinal: + diarrhea/loose stools (when taking Kris alax); no abdominal pain, no bloating, no nausea, no vomiting and no constipation Genitourinary: no dysuria or no urinary frequency Integumentary: + skin ulcer and + erythema Neurologic: no tingling and no numbness Physical Exam Constitutional: + ill appearing and + morbidly obese Respiratory: normal respiratory effort, lungs clear to auscultation Cardiovascular: RRR, no murmur, no edema Gastrointestinal (Abdomen): Inspection/Auscultation: + abdomen distended and normal bowel sounds Percussion/Palpation: abdomen nontender and abdomen not rigid Skin: + lesion, + ulcer (superficial stress ul cer on r. buttock, erythematous) and + erythema (warmth, erythema on RLE and LLE bilaterally) Psychiatric: A+Ox3, euthymic affect Orientation: oriented to person, oriented to time and cooperative; + not oriented to place (not oriented to state, city, ) Results & Data Results & Data Vital Signs (Past 12 Hours) Vital Signs Temp Pulse Pulse Resp BP Pulse Ox O2 Del Method 04/14/23 00:52 89 04/14/23 00:35 36.8 C 86 20 116/74 94 Room Air 04/13/23 21:08 36.7 C 89 20 118/67 94 Room Air (2) Sepsis Sepsis acute organ dysfunction status: with acute organ dysfunction Severe sepsis acute organ dysfunction type: unspecified Severe sepsis shock status: without septic shock
[2023-04-14 07:49] LABS: INR 2.7 (0.9-1.1); Prothrombin Time 27.7 Seconds (9.0-12.0)
[2023-04-14] MEDS: OLANZapine ZYDIS 5 MG ORALLY DIS. TAB PO ONE (17:10)
[2023-04-14] MEDS: LANTUS PER UNIT CHARGE SQ SCH (21:09)
--- NOTE | 2023-04-15 09:14 | Discharge Summary ---
Date of Service April 15, 2023 Admission HPI Per Admitting Provider Isma is a 72-year-old male with a past medical history of medication noncompliance, left lower extremity DVT, A-fib, CAD, MAMI, DM 2, and cognitive decline who was recently admitted from 02/18/2023 - 03/03/2023 and discharged to SNF. Ideally due to chronic decline patient was hopeful to [facility] assisted living following acute rehab. He Zachariah presents to the ER 03/26/2023 with black spots overlying his buttocks which have occurred intermittently in the previous few months but currently which are very painful for him. He has chronic lower extremity swelling which is unchanged. last dc weight 123.5kg. Dry weight ~123- 126 kg by chart review. Admit weight 105.9kg. ?accuracy --> daily standing weight Patient seen at the bedside. He reports for last 2 to 3 days he has felt generally unwell and has had intermittent fevers. He has not taken anything for this. He thinks he had some abdominal pain earlier, none at time of his admission. He denies chest pain. He denies shortness of breath, cough, sputum production. He reports his legs hurt, has not sure how long these have been worse for. He reports his pain is greatest at his buttocks where his skin is excoriated. He has had some diarrhea, reports loose bowel movement this morning. Thinks this started today and denies diarrhea in the last 2 to 3 days. He feels his legs are always swollen is not sure if these have changed recently. Denies nausea/vomiting. Feels fatigued and dehydrated. Medical History: Reviewed Medications: Reviewed Surgical History: Reviewed Family history: Reviewed Allergies: Reviewed Social History: Reviewed Code Status: Full Addendum: Was able to contact patient's daughter by phone. Full update given on plan of care to which she is in agreement. She notes that he has had resistant infection in the past including MRSA. She is aware that he has been generally unwell for the last few days and had some confusion/hallucinations which while he has had some chronic cognitive decline is somewhat atypical for him. Otherwise no questions and no additional collateral at time of call. Phone number added for updates to AMP Admission Exam Per Admitting Provider Physical Exam: General: A&Ox3. NAD. Cooperative. HEENT: Atraumatic, normocephalic. MM dry/cracked Pulm: Distant but grossly CTAB A&P. -wheezes, -rales, -rhonchi. Symmetrical chest rise. No increased work of breathing. No respiratory distress. Cardiac: regular, tachycardic, -mrg. Radial pulses intact and symmetrical. Abdominal: Tympanitic, softly distended without pain on light or deep palpation or rebound. No guarding. Extremities: With bilateral chronic venous stasis changes, and erosions with asymmetric erythema, warmth, and tenderness of the left compared to the right. See photos below. Endorses sensation is intact to soft touch in the hands and feet bilaterally. Able to wiggle toes bilaterally. Blood Typer strength is intact bilaterally. Denies saddle anesthesia. Back: No midline spinal tenderness to palpation including at the lumbar spine. Below this patient does have excoriations and extremely tender skin erosions as pictured. Principal Diagnosis cellulitis, UTI, sepsis, and L5 vertebral fracture Discharge Exam Constitutional + ill appearing and + morbidly obese Respiratory normal respiratory effort, lungs clear to auscultation Cardiovascular RRR, no murmur, no edema Gastrointestinal (Abdomen) Inspection/Auscultation: + abdomen distended and normal bowel sounds Percussion/Palpation: abdomen nontender and abdomen not rigid Skin + lesion, + ulcer (superficial stress ulcer on r. buttock, erythematous) and + erythema (warmth, erythema on RLE and LLE bilaterally) Psychiatric A+Ox3, euthymic affect Orientation: oriented to person, oriented to time and cooperative; + not oriented to place (not oriented to state, city, ) Discharge Data Allergies Allergy/AdvReac Type Severity Reaction Status Date / Time No Known Allergies Allergy Verified 03/26/23 17:37 Consultations 03/26/23 17:23 ED Decision to Admit Stat Ordered Studies 03/26/23 15:42 CT abd pelvis wo con Stat 03/26/23 19:18 CT chest diagnostic wo con Stat Hospital Course (1) Cellulitis: (2) Sepsis: (3) L5 vertebral fracture: (4) Diabetes: (5) Urinary tract infection: (6) CAD (coronary artery disease): Kary Ashby is a 72 yo M male w/ a PMHx of medication noncompliance, left lower extremity DVT, A-fib, CAD, MAMI, T2DM, and cognitive decline admitted with concern for sepsis and cellulitis. Self-care deficit Deconditioning/ Ambulatory deficiency With progressive decline over last year, patient previously discharged to SNF with hope of transitioning to assisted living after this - PT/OT recommend SNF, placement is pending. CM following -CM update: Sherie at [facility] (pt's previous residence) stated they wanted rehab for pt before returning to [facility]; Francisca at [facility] said facility can't accept him; waiting to hear from [facility] or other placement facility Sepsis- resolved. see below. Cellulitis -resolved - MRSA nares + - Completed daptomycin regimen Urinary tract infection - resolved - Klebsiella, Pansensitive - Finished Ceftriaxone and Cefdinir L5 vertebral fracture: - Low concern for osteomyelitis Repeat MRI in 1 month. Paroxysmal atrial fibrillation - stable Continue metoprolol 12.5 mg twice daily, can titrate as needed, - Had RVR of 170 for a day - received - 5mg Verapamil x1 IV on 04/08; IV Digoxin and bolus on 04/09 - pt was in normal rhythm 48 hrs-post last AFib episode, Abdominal distension: - / large stool burden, CTAP: No gluteal ulcerations or abscesses. Stool bio fire/C. difficile: negative, C. diff, negative - resolved. History of left lower extremity DVT Continue warfarin INR goal 23 - INR every other day - Continue warfarin, 5 mg/10 mg alternating days, consider 5 mg/10 mg alternating days if INR gets above 3.0 - last INR was 2.7 CAD With history of PCI Continue metoprolol, aspirin, rosuvastatin Last echo with EF 55-59% 2018 Obstructive sleep apnea: CPAP nightly Diabetes (T2DM): Last A1c 7.2% Continue weight-based basal bolus DM2/heart healthy diet Surrogate decision maker patient's daughter Tricia available at [phone] Total Time Total Time Spent Total Time Spent (In Minutes): see attending attestation Discharge Plan Discharge Items Patient Disposition: Home - Self-Care Reason For Visit: SEPSIS Discharge Diagnosis: L5 lumbar fracture, resolved UTI, cellulitis Activity: Resume your previous activity Non-emergency contact: Primary Care Provider Call non-emergency contact if: your symptoms worsen and your pain is concerning for you Follow-up/Referrals: Ta Chi, [Primary Care Provider] - Diet: Carb Consistent or DM2 Addtl Attending Provider Instructions: You were admitted to the hospital for [_]. You were treated with [_]. A discharge summary will be sent to your primary care physician to ensure continuity of care. Please bring this discharge summary with you to your next office appointment so that your provider can review it at that time. Follow-up appointments: [ Make a follow-up appointment with your PCP within the next week. It is very important that you follow up with them shortly after discharge from the hospital.] [ We have requested a follow-up appointment with your primary care physician within one week of discharge. Please call their office if you do not hear from them.] [ You have an appointment with _ on _ at _. If you are unable to make this appointment, or have any other questions, their office can be reached at _.] Keep all your follow-up appointments as already scheduled. If you cannot make an appointment, notify your provider. Medications: Your medication list has been reviewed and reconciled upon discharge to ensure accuracy and continuity of care. An updated list of all your medications is included with your hospital discharge paperwork. Please review this list closely, and make note of any changes. We sent a new medication called [med name] to your pharmacy. Take [med name] ([_]mg) [one tablet] [daily] [for _ days]. We sent a new medication called [med name] to your pharmacy. Take [med name] ([_]mg) [one tablet] [daily] [for _ days]. Take your medications as instructed; do not skip a dose of your medicines. Make sure all of your doctors know every medicine you are taking (including mdki-wgy-ckdvnsc medicines, vitamins, and supplements). Call your primary care provider before taking any new medicines (including mphe-zvw-caoejjw medicines, vitamins, and supplements), because some of these may interact with your current medications, or may make your symptoms worse. Tell your primary care provider if you cannot afford your medications. CONTACT YOUR PRIMARY CARE PROVIDER if you experience any of the following: [_] [_] Difficulty following your treatment plan, or difficulty taking medications CALL 911 OR GO TO THE EMERGENCY DEPARTMENT if you experience any of the following: Sudden, severe abdominal pain or nausea/vomiting Severe chest pain, or chest pain that radiates (moves) to your jaw or arm Sudden, severe shortness of breath or difficulty breathing Thank you for allowing us to participate in your care Pending Studies at Discharge: No Stand-Alone Forms: [facility], Smoking Cessation Medications and DC Order Prescriptions: Continued aspirin 81 mg Tablet,Delayed Release (Dr/Ec) 81 mg PO DAILY rosuvastatin 20 mg Tablet 20 mg PO QPM folic acid 1 mg Tablet 1 mg PO BID doxazosin [Cardura] 1 mg Tablet 1 mg PO HS nitroglycerin [Nitrostat] 0.4 mg Tablet, Sublingual 0.4 mg sublingual .EVERY 5 MIN PRN (Reason: Chest Pain) Rx Instructions: x3 doses q 5mins for chest pain cholecalciferol (vitamin D3) [Vitamin D3] 50 mcg (2,000 unit) Capsule 50 mcg PO DAILY warfarin 5 mg tablet 5 mg PO .HOLD THRU 03/27/23 Rx Instructions: take 2 tablets in evening on tuesday,tuesday, ...other day take 1 tablet in evening pantoprazole 40 mg tablet,delayed release (DR/EC) 40 mg PO DAILY metoprolol tartrate 25 mg Tablet 12.5 mg PO BID Qty: 0 0RF polyethylene glycol 3350 [Miralax] 17 gram Powder In Packet 17 g PO DAILY Qty: 0 0RF melatonin 3 mg Tablet 3 mg PO HS Qty: 0 0RF melatonin 3 mg Tablet,Disintegrating 3 mg PO HS potassium chloride 10 mEq tablet,ER particles/crystals 10 meq PO TID Rx Instructions: x 3 days...ordered 03/25/23 sennosides [Senokot] 8.6 mg tablet 17.2 mg PO DAILY warfarin 6 mg tablet 6 mg PO HS Rx Instructions: take on 03/25/23 and 03/26/23 furosemide [Lasix] 40 mg tablet 40 mg PO BID Rx Instructions: daily at 0800 and 2000 Jardiance 25 mg tablet 25 mg PO DAILY miconazole nitrate [Desenex] 2 % powder 1 applic EXT QS Rx Instructions: apply to affected area every shift for irritation multivitamin [Daily-Lala] Tablet 1 tab PO DAILY coQ10 (ubiquinol) 200 mg Capsule 400 mg PO DAILY Rx Instructions: using softgel clotrimazole 1 % Cream 1 applic TOPICAL QS Rx Instructions: apply to groin every shift for fungal excoriation acetaminophen 325 mg Tablet 650 mg PO Q6 MDD 3g PRN (Reason: Fever Or Pain) ProAir RespiClick 90 mcg/actuation Aerosol Powdr Breath Activated 2 inh INHALATION Q6H PRN (Reason: Wheezing) Discharge Orders: Discharge Order (Routine); Ordered 04/15/23 Ordered By: Kristopher Rg/Other Patient Handouts: DVT Complications, Cellulitis Dc, DVT Dc, Understanding Sepsis Admission Data Admit Date/Time: 03/26/23 17:55 Attending Provider: Susana Alan Admit Provider: Ivan Granda Primary Care Provider: Ta Chi [facility]; Sandra Gibson at [place]; Mohsen Valderrama; Ivan Granda Other Interventions: Discharge Summary Assessment (RN) Last Done: 04/15/23 09:46 Supervising Physician Co-Signing Physician Notes Attending Physician Supervision Note: I independently interviewed and examined the patient and verified the siddiqi history and physical, reviewed labs and image studies and agree with findings and care plan noted above. no concerns resting comfortably no new issues identified. Vitals noted, in general resting nad. Breathing unlabored no accessory muscle use good effort. Skin without rashes pallor or icterus. IMPRESSION & PLAN Sepsis -source - urine/skin/both; improved Cellulitis -treated with daptomycin UTI -treated with cefdinir for Klebsiella pneumonia PAF - anticoagulated. rates controlled - metoprolol 12.5mgs bid. Deconditioning/Ambulatory dysfunction -PT/OT recommend SNF, placement Chronic indwelling foote cath - no concerns. Additional per resident documentation
== END 2023-04-15 11:21 | disposition home or self-care (01) | DRG 872 ==
LOC: SUATTDRO → ED 14:47 → 4W 17:55 → SUATTDRO 17:55 → 4W 18:53 → 3E 03-28 18:47 → 4W 04-07 22:00 → 2W 04-11 18:33 → 3N 04-14 18:32

== ENCOUNTER 2023-04-18 03:16 | Inpatient (IN) ==
--- OUTSIDE RECORDS SUMMARY | 2023-04-18 03:24 | External Medical Summary | Summary of Care ---
Author Name Unknown Organization [facility] Address [address] [place] [address] Phone [phone] Care Team Providers Care Diesel Engine Specialist Name Role Phone Julieth Hargrove PA-C Primary Care Provide r Reason for Visit * Reason Comments Dosage Adjustment Via Phone (anticoag Cl inic) Encounter Details Date Type Department Care Team (Latest Contact Info) Description 04/11/2023 5:10 PM EST Anticoagulation Pharmacy, [facility] [address] [place] [address] [facility] [address] [place] [address] Persistent atrial fibrillation (HCC)* Allergies No known active allergiesdocumented as of this encounter (statuses as of 04/11/2023) Medications Medication Sig Dispensed Refills Start Date [...] Nasal SolutionIndications: Other chronic sinusitis Administer 1 Baldwin into nostril in the morning and 1 Baldwin before bedtime. 30 mL 12 07/13/2016 Active [...] Oral Tablet (Cardura)Indications :Coronary artery disease involving [place] coronary artery of [place] heart without angina pectoris TAKE 1 TABLET [...] as of this encounter (statuses as of 04/11/2023) Active Problems Problem Noted Date Diagnosed Date [...] disorder 01/22/2014 Coronary artery disease invo lving [place] coronary artery of [place] heart without angina pectoris 02/24/2012 Dyslipidemia, goal LDL below 70 02/18/2009 Overview: Per Lipid Taxonomy. Gastroesophageal reflux disease without esophagi tis 01/14/2009 Chronic rhinitis 01/14/2009 Type 2 diabetes mellitus wit h hemoglobin A1c goal of less than 7.0% 01/02/2009 Overview: Per Diabetes Taxonomy. ICD-10 update of inactive term OLD MYOCARDIAL INFARCT 09/26/2008 Overview: Modified by Acute CO Protocol #5. 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 MAMI (obstructive sleep apnea) 03/07/1994 Overview: 10/2012 -- auto CPAP 16 cwp 06/26/12 -- changed from [employer] to T&B 08/06/11 -- CPAP auto 13-16 cwp 2007 - REMstar Plus CPAP 15 cwp T&B Medical ACEI/ARB contraindicated documented as of this encounter (statuses as of 04/11/2023) Resolved Problems Problem Noted Date Diagnosed Date [...] as of this encounter (statuses as of 04/11/2023) Immunizations Name Administration Dates Next Due Hepatitis [...] this encounter Progress Notes * Suzanne Vazquez RPh - 04/11/2023 8:49 AM EST Called [facility]. Patient remains admitted. Follow up in 3 days for discharge. Suzanne Vazquez, Pharm D, BCACP Clinical Pharmacist 04/11/2023, 8:50 AM documented in this encounter Plan of Treatment Upcoming Encounters Date Type Department Care Team (Late st Contact Info) Description 04/14/2023 5:10 PM EST Anticoagulation Pharmacy, [facility] [address] [place] [address] [facility] [address] [place] [id number] Health Maintenance Due Date Last Done Comments [...] fibrillation documented in this encounter Care Teams Diesel Engine Specialist Relationship Specialty Start Date End Date Julieth Hargrove PA-C [address] [place] [address], [place] [id number] PCP - General Physician Wildlife Protector 03/18/21 documented as of this encounter
--- OUTSIDE RECORDS SUMMARY | 2023-04-18 03:24 | External Medical Summary | Summary of Care ---
Author Name Unknown Organization [facility] Address [address] [facility] [place] [place] [address] Phone [phone] Care Team Providers Care Safe And Vault Mechanic Name Role Phone Julieth Hargrove PA-C Primary Care Provide r Reason for Visit * Reason Comments Dosage Adjustment Via Phone (anticoag Cl inic) Encounter Details Date Type Department Care Team (Latest Contact Info) Description 04/14/2023 5:10 PM EST Anticoagulation Pharmacy, [facility] 132 [place] [address] [facility] 132 [place] [address] Persistent atrial fibrillation (HCC)* Allergies No known active allergiesdocumented as of this encounter (statuses as of 04/14/2023) Medications Medication Sig Dispensed Refills Start Date [...] Nasal SolutionIndications: Other chronic sinusitis Administer 1 [place] into nostril in the morning and 1 [place] before bedtime. 30 mL 12 07/13/2016 Active [...] Oral Tablet (Cardura)Indications :Coronary artery disease involving [place] coronary artery of [place] heart without angina pectoris TAKE 1 TABLET [...] as of this encounter (statuses as of 04/14/2023) Active Problems Problem Noted Date Diagnosed Date [...] disorder 01/22/2014 Coronary artery disease invo lving [place] coronary artery of [place] heart without angina pectoris 02/24/2012 Dyslipidemia, goal LDL below 70 02/18/2009 Overview: Per Lipid Taxonomy. Gastroesophageal reflux disease without esophagi tis 01/14/2009 Chronic rhinitis 01/14/2009 Type 2 diabetes mellitus wit h hemoglobin A1c goal of less than 7.0% 01/02/2009 Overview: Per Diabetes Taxonomy. ICD-10 update of inactive term OLD MYOCARDIAL INFARCT 09/26/2008 Overview: Modified by Acute [place] Protocol #5. 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 MAMI (obstructive sleep apnea) 03/07/1994 Overview: 10/2012 -- auto CPAP 16 cwp 06/26/12 -- changed from [employer] to T&B 08/06/11 -- CPAP auto 13-16 cwp 2007 - REMstar Plus CPAP 15 cwp T&B Medical ACEI/ARB contraindicated documented as of this encounter (statuses as of 04/14/2023) Resolved Problems Problem Noted Date Diagnosed Date [...] as of this encounter (statuses as of 04/14/2023) Immunizations Name Administration Dates Next Due Hepatitis [...] Progress Notes * Suzanne Vazquez RPh - 04/14/2023 9:20 AM EST Patient remains admitted at [facility]. Suzanne Vazquez, Pharm D, BCACP Clinical Pharmacist 04/14/2023, 9:23 AM documented in this encounter Plan of Treatment Upcoming Encounters Date Type Department Care Team (Late st Contact Info) Description 04/18/2023 5:10 PM EST Anticoagulation Pharmacy, [facility] 132 [facility] [place] [address] [facility] [place] [address] Health Maintenance Due Date Last Done Comments [...] fibrillation documented in this encounter Care Teams Safe And Vault Mechanic Relationship Specialty Start Date End Date Julieth Hargrove PA-C [address] [place] [address], [place] [address] PCP - General Physician Shellfish Manager 03/18/21 documented as of this encounter
--- OUTSIDE RECORDS SUMMARY | 2023-04-18 03:24 | External Medical Summary | Summary of Care ---
Author Name Unknown Organization [facility] Address 100 [address] [facility] [facility] [place] [address] Phone [phone] Care Team Providers Care Manager Business Continuity Name Role Phone Julieth Hargrove PA-C Primary Care Provide r Reason for Visit * Reason Comments Dosage Adjustment Via Phone (anticoag Cl inic) Encounter Details Date Type Department Care Team (Latest Contact Info) Description 04/08/2023 5:10 PM EST Anticoagulation Pharmacy, [facility] 132 [place] [address] [facility] 132 [place] [address] Persistent atrial fibrillation (HCC)* Allergies No known active allergiesdocumented as of this encounter (statuses as of 04/08/2023) Medications Medication Sig Dispensed Refills Start Date [...] Nasal SolutionIndications: Other chronic sinusitis Administer 1 [place] into nostril in the morning and 1 [place] before bedtime. 30 mL 12 07/13/2016 Active [...] Oral Tablet (Cardura)Indications :Coronary artery disease involving [place] coronary artery of [place] heart without angina pectoris TAKE 1 TABLET [...] as of this encounter (statuses as of 04/08/2023) Active Problems Problem Noted Date Diagnosed Date [...] disorder 01/22/2014 Coronary artery disease invo lving [place] coronary artery of [place] heart without angina pectoris 02/24/2012 Dyslipidemia, goal [...] as of this encounter (statuses as of 04/08/2023) Resolved Problems Problem Noted Date Diagnosed Date [...] as of this encounter (statuses as of 04/08/2023) Immunizations Name Administration Dates Next Due Hepatitis [...] as of this encounter Progress Notes * Szuanne Vazquez RPh - 04/08/2023 9:21 AM EST Called [facility]. Patient remains admitted. Follow up in 3 days for discharge. Suzanne Vazquez, Pharm D, BCACP Clinical Pharmacist 04/08/2023, 9:22 AM documented in this encounter Plan of Treatment Upcoming Encounters Date Type Department Care Team (Late st Contact Info) Description 04/11/2023 5:10 PM EST Anticoagulation Pharmacy, [facility] 132 [facility] [place] [address] [facility] [place] [address] Health Maintenance Due Date Last Done Comments [...] fibrillation documented in this encounter Care Teams Manager Business Continuity Relationship Specialty Start Date End Date Julieth Hargrove PA-C [address] [place] [address], [place] [address] PCP - General Physician Encoding Clerk 03/18/21 documented as of this encounter
--- OUTSIDE RECORDS SUMMARY | 2023-04-18 03:25 | External Medical Summary | Summary of Care ---
Author Name Unknown Organization [facility] Address 100 [facility] [place] [address] Phone [phone] Care Team Providers Care Surgical Technologist Name Role Phone Julieth Hargrove PA-C Primary Care Provide r Reason for Visit * Reason Comments Dosage Adjustment Via Phone (anticoag Cl inic) Encounter Details Date Type Department Care Team (Latest Contact Info) Description 03/31/2023 5:10 PM EST Anticoagulation Pharmacy, [facility] 132 [place] [address] [facility] 132 [place] [address] Persistent atrial fibrillation (HCC)* Allergies No known active allergiesdocumented as of this encounter (statuses as of 03/31/2023) Medications Medication Sig Dispensed Refills Start Date [...] Nasal SolutionIndications: Other chronic sinusitis Administer 1 [place] into nostril in the morning and 1 [place] before bedtime. 30 mL 12 07/13/2016 Active [...] Oral Tablet (Cardura)Indications :Coronary artery disease involving [place] coronary artery of [place] heart without angina pectoris TAKE 1 TABLET [...] as of this encounter (statuses as of 03/31/2023) Active Problems Problem Noted Date Diagnosed Date [...] disorder 01/22/2014 Coronary artery disease invo lving [place] coronary artery of [place] heart without angina pectoris 02/24/2012 Dyslipidemia, goal [...] as of this encounter (statuses as of 03/31/2023) Resolved Problems Problem Noted Date Diagnosed Date [...] as of this encounter (statuses as of 03/31/2023) Immunizations Name Administration Dates Next Due Hepatitis [...] Progress Notes * Suzanne Vazquez RPh - 03/31/2023 8:09 AM EST Patient remains admitted at [facility]. Follow up in 1 day for discharge. Suzanne Vazquez, Pharm D, BCACP Clinical Pharmacist 03/31/2023, 8:10 AM documented in this encounter Plan of Treatment Upcoming Encounters Date Type Department Care Team (Late st Contact Info) Description 04/01/2023 5:10 PM EST [facility] [address] [place] [address] [facility] [place] [address] Health Maintenance Due Date Last Done Comments [...] fibrillation documented in this encounter Care Teams Surgical Technologist Relationship Specialty Start Date End Date Julieth Hargrove PA-C [address] [place] [address], [place] [address] PCP - General Physician Non Destructive Testing Scientist 03/18/21 documented as of this encounter
--- OUTSIDE RECORDS SUMMARY | 2023-04-18 03:25 | External Medical Summary | Summary of Care ---
Author Name Unknown Organization [facility] Address [address] [facility] [place] [address] Phone [phone] Care Team Providers Care Inner Tube Tuber Machine Operator Name Role Phone Julieth Hargrove PA-C Primary Care Provide r Reason for Visit * Reason Comments Status Check Encounter Details Date Type Department Care Team (Latest Contact Info) Description 04/01/2023 5:10 PM EST Anticoagulation Pharmacy, [facility] 132 [facility] [address] [facility] 132 [place] [address] Persistent atrial fibrillation (HCC)* Allergies No known active allergiesdocumented as of this encounter (statuses as of 04/01/2023) Medications Medication Sig Dispensed Refills Start Date [...] Nasal SolutionIndications: Other chronic sinusitis Administer 1 [place] into nostril in the morning and 1 [place] before bedtime. 30 mL 12 07/13/2016 Active [...] Oral Tablet (Cardura)Indications :Coronary artery disease involving [place] coronary artery of [place] heart without angina pectoris TAKE 1 TABLET [...] as of this encounter (statuses as of 04/01/2023) Active Problems Problem Noted Date Diagnosed Date [...] disorder 01/22/2014 Coronary artery disease invo lving [place] coronary artery of [place] heart without angina pectoris 02/24/2012 Dyslipidemia, goal LDL below 70 02/18/2009 Overview: Per Lipid Taxonomy. Gastroesophageal reflux disease without esophagi tis 01/14/2009 Chronic rhinitis 01/14/2009 Type 2 diabetes mellitus wit h hemoglobin A1c goal of less than 7.0% 01/02/2009 Overview: Per Diabetes Taxonomy. ICD-10 update of inactive term OLD MYOCARDIAL INFARCT 09/26/2008 Overview: Modified by Acute [place] Protocol #5. 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 MAMI (obstructive sleep apnea) 03/07/1994 Overview: 10/2012 -- auto CPAP 16 cwp 06/26/12 -- changed from [employer] to T&B 08/06/11 -- CPAP auto 13-16 cwp 2007 - REMstar Plus CPAP 15 cwp T&B Medical ACEI/ARB contraindicated documented as of this encounter (statuses as of 04/01/2023) Resolved Problems Problem Noted Date Diagnosed Date [...] as of this encounter (statuses as of 04/01/2023) Immunizations Name Administration Dates Next Due Hepatitis [...] Progress Notes * Juanpablo Nichols RPh - 04/01/2023 3:37 PM EST Called [facility], spoke to quality control operator, patient remains admitted. Will place on schedule for discharge check 04/04. Juanpablo Nichols PharmD, [facility] Curler Clinical Pharmacist 04/01/2023, 3:45 PM documented in this encounter Plan of Treatment Upcoming Encounters Date Type Department Care Team (Late st Contact Info) Description 04/04/2023 5:30 PM EST Anticoagulation Pharmacy, [facility] [address] [place] [address] [address] [facility] 132 [place] [address] Health Maintenance Due Date Last Done Comments [...] fibrillation documented in this encounter Care Teams Inner Tube Tuber Machine Operator Relationship Specialty Start Date End Date Julieth Hargrove PA-C [address] [place] [address], [place] [address] PCP - General Physician Department Specialist 03/18/21 documented as of this encounter
--- OUTSIDE RECORDS SUMMARY | 2023-04-18 03:25 | External Medical Summary | Summary of Care ---
Author Name Unknown Organization [facility] Address 100 [facility] [place] [address] Phone [phone] Care Team Providers Care Welding Equipment Repairer Supervisor Name Role Phone Julieth Hargrove PA-C Primary Care Provide r Reason for Visit * Reason Comments Dosage Adjustment Via Phone (anticoag Cl inic) Encounter Details Date Type Department Care Team (Latest Contact Info) Description 03/29/2023 5:30 PM EST Anticoagulation Pharmacy, [facility] 132 [place] [address] [facility] 132 [place] [address] Persistent atrial fibrillation (HCC)* Allergies No known active allergiesdocumented as of this encounter (statuses as of 03/29/2023) Medications Medication Sig Dispensed Refills Start Date [...] Nasal SolutionIndications: Other chronic sinusitis Administer 1 [place] into nostril in the morning and 1 [place] before bedtime. 30 mL 12 07/13/2016 Active [...] Oral Tablet (Cardura)Indications :Coronary artery disease involving [place] coronary artery of [place] heart without angina pectoris TAKE 1 TABLET [...] as of this encounter (statuses as of 03/29/2023) Active Problems Problem Noted Date Diagnosed Date PVC (premature ventricular contraction) 12/09/19 Persistent atrial fibrillation 11/19/2022 Peripheral venous insufficiency [...] disorder 01/22/2014 Coronary artery disease invo lving [place] coronary artery of [place] heart without angina pectoris 02/24/2012 Dyslipidemia, goal LDL below 70 02/18/2009 Overview: Per Lipid Taxonomy. Gastroesophageal reflux disease without esophagi tis 01/14/2009 Chronic rhinitis 01/14/2009 Type 2 diabetes mellitus wit h hemoglobin A1c goal of less than 7.0% 01/02/2009 Overview: Per Diabetes Taxonomy. ICD-10 update of inactive term OLD MYOCARDIAL INFARCT 09/26/2008 Overview: Modified by Acute [place] Protocol #5. 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 MAMI (obstructive sleep apnea) 03/07/1994 Overview: 10/2012 -- auto CPAP 16 cwp 06/26/12 -- changed from [employer] to T&B 08/06/11 -- CPAP auto 13-16 cwp 2007 - REMstar Plus CPAP 15 cwp T&B Medical ACEI/ARB contraindicated documented as of this encounter (statuses as of 03/29/2023) Resolved Problems Problem Noted Date Diagnosed Date [...] as of this encounter (statuses as of 03/29/2023) Immunizations Name Administration Dates Next Due Hepatitis [...] Progress Notes * Suzanne Vazquez RPh - 03/29/2023 9:39 AM EST Patient is currently admitted at [facility]. Follow up in 2 days for discharge. Suaznne Vazquez, Pharm D, BCACP Clinical Pharmacist 03/29/2023, 9:43 AM documented in this encounter Plan of Treatment Upcoming Encounters Date Type Department Care Team (Late st Contact Info) Description 03/31/2023 5:10 PM EST [facility] [address] [place] [address] [facility] [place] [address] Health Maintenance Due Date Last Done Comments [...] fibrillation documented in this encounter Care Teams Welding Equipment Repairer Supervisor Relationship Specialty Start Date End Date Julieth Hargrove PA-C [address] [place] [address], [place] [address] PCP - General Physician Cardroom Manager 03/18/21 documented as of this encounter
--- OUTSIDE RECORDS SUMMARY | 2023-04-18 03:25 | External Medical Summary | Summary of Care ---
Author Name Unknown Organization [facility] Address [address] [facility] [place] [address] Phone [phone] Care Team Providers Care Administrative Support Coordinator Name Role Phone Julieth Hargrove PA-C Primary Care Provide r Reason for Visit * Reason Onset Date Comments Returning Call 01/05/2023 Encounter Details Date Type Department Care Team (Late st Contact Info) Description 01/05/2023 Telephone Family Practice [facility] [address] [facility] [place] [address] Selina Moser CRNP [address] [facility] [place] [address] Returning Call Allergies No known active allergiesdocumented as of this encounter (statuses as of 04/06/2023) Medications Medication Sig Dispensed Refills Start Date [...] Nasal SolutionIndications: Other chronic sinusitis Administer 1 [place] into nostril in the morning and 1 [place] before bedtime. 30 mL 12 07/13/2016 Active [...] as of this encounter (statuses as of 04/06/2023) Active Problems Problem Noted Date Diagnosed Date [...] MYOCARDIAL INFARCT 09/26/2008 Overview: Modified by Acute [place] Protocol #5. 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 MAMI (obstructive sleep apnea) 03/07/1994 Overview: 10/2012 -- auto CPAP 16 cwp 06/26/12 -- changed from [employer] to T&B 08/06/11 -- CPAP auto 13-16 cwp 2007 - REMstar Plus CPAP 15 cwp T&B Medical ACEI/ARB contraindicated documented as of this encounter (statuses as of 04/06/2023) Resolved Problems Problem Noted Date Diagnosed Date [...] as of this encounter (statuses as of 04/06/2023) Immunizations Name Administration Dates Next Due Hepatitis [...] encounter Miscellaneous Notes * Telephone Encounter - Carolyn Chiu LPN - 01/05/2023 3:32 PM EDT fyi * Telephone Encounter - Zehra Greer OSA - 01/05/2023 3:17 PM EDT Patient was returning a call from the office. I advised him that he missed his last family practiceappointment and [facility] appointment. I asked if he wanted to reschedule and/or schedule a nurse visit to go over his medications as in Notes from 12/14, and he declined. He said he will bring his medications to his Cardiology appointment on 01/06. He was having a hard time hearing what I was saying, even after repeating the information several times. documented in this encounter Plan of Treatment Upcoming Encounters Date Type Department Care Team (Late st Contact Info) Description 04/08/2023 5:10 PM EST Anticoagulation Pharmacy, [facility] [address] [place] [address] [facility] [address] [place] [address] Health Maintenance Due Date Last Done Comments [...] filedocumented as of this encounter Care Teams Administrative Support Coordinator Relationship Specialty Start Date End Date Julieth Hargrove PA-C [address] [place] [address] PCP - General Physician Women'S Apparel Salesperson 03/18/21 documented as of this encounter
--- OUTSIDE RECORDS SUMMARY | 2023-04-18 03:25 | External Medical Summary | Summary of Care ---
Author Name Unknown Organization [facility] Address 100 [facility] [place] [address] Phone [phone] Care Team Providers Care Screening Technician Name Role Phone Julieth Hargrove PA-C Primary Care Provide r Reason for Visit * Reason Comments Dosage Adjustment Via Phone (anticoag Cl inic) Encounter Details Date Type Department Care Team (Latest Contact Info) Description 04/06/2023 5:10 PM EST Anticoagulation Pharmacy, [facility] 132 [place] [address] [facility] 132 [place] [address] Persistent atrial fibrillation (HCC)* Allergies No known [...] Nasal SolutionIndications: Other chronic sinusitis Administer 1 [place] into nostril in the morning and 1 [place] before bedtime. 30 mL 12 07/13/2016 Active [...] Oral Tablet (Cardura)Indications :Coronary artery disease involving [place] coronary artery of [place] heart without angina pectoris TAKE 1 TABLET [...] 01/22/2014 Coronary artery disease invo lving [place] coronary artery of [place] heart without angina pectoris 02/24/2012 Dyslipidemia, goal [...] Progress Notes * Suzanne Vazquez RPh - 04/06/2023 8:17 AM EST Patient Phone Numbers Patient remains admitted at [facility]. Follow up for discharge in 2 days. Suzanne Vazquez, Pharm D, BCACP Clinical Pharmacist 04/06/2023, 8:20 AM documented in this encounter Plan of Treatment Upcoming Encounters Date Type Department Care Team (Late st Contact Info) Description 04/08/2023 5:10 PM EST Anticoagulation Pharmacy, [facility] [address] [place] [address] [facility] 132 [facility] [place] [address] Health Maintenance Due Date Last Done Comments [...] fibrillation documented in this encounter Care Teams Screening Technician Relationship Specialty Start Date End Date Julieth Hargrove PA-C [address] [place] [address], [place] [address] PCP - General Physician Pv Installer Tech 03/18/21 documented as of this encounter
--- OUTSIDE RECORDS SUMMARY | 2023-04-18 03:25 | External Medical Summary | Summary of Care ---
Author Name Unknown Organization [facility] Address 100 [facility] [place] [address] Phone [phone] Care Team Providers Care Optometric Aide Name Role Phone Julieth Hargrove PA-C Primary Care Provide r Reason for Visit * Reason Comments Dosage Adjustment Via Phone (anticoag Cl inic) Encounter Details Date Type Department Care Team (Latest Contact Info) Description 04/04/2023 5:30 PM EST Anticoagulation Pharmacy, [facility] 132 [place] [address] [facility] 132 [place] [address] Persistent atrial fibrillation (HCC)* Allergies No known active allergiesdocumented as of this encounter (statuses as of 04/04/2023) Medications Medication Sig Dispensed Refills Start Date [...] Nasal SolutionIndications: Other chronic sinusitis Administer 1 [place] into nostril in the morning and 1 [place] before bedtime. 30 mL 12 07/13/2016 Active [...] Oral Tablet (Cardura)Indications :Coronary artery disease involving [place] coronary artery of [place] heart without angina pectoris TAKE 1 TABLET [...] as of this encounter (statuses as of 04/04/2023) Active Problems Problem Noted Date Diagnosed Date [...] disorder 01/22/2014 Coronary artery disease invo lving [place] coronary artery of [place] heart without angina pectoris 02/24/2012 Dyslipidemia, goal LDL below 70 02/18/2009 Overview: Per Lipid Taxonomy. Gastroesophageal reflux disease without esophagi tis 01/14/2009 Chronic rhinitis 01/14/2009 Type 2 diabetes mellitus wit h hemoglobin A1c goal of less than 7.0% 01/02/2009 Overview: Per Diabetes Taxonomy. ICD-10 update of inactive term OLD MYOCARDIAL INFARCT 09/26/2008 Overview: Modified by Acute [place] Protocol #5. 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 MAMI (obstructive sleep apnea) 03/07/1994 Overview: 10/2012 -- auto CPAP 16 cwp 06/26/12 -- changed from [employer] to T&B 08/06/11 -- CPAP auto 13-16 cwp 2007 - REMstar Plus CPAP 15 cwp T&B Medical ACEI/ARB contraindicated documented as of this encounter (statuses as of 04/04/2023) Resolved Problems Problem Noted Date Diagnosed Date [...] as of this encounter (statuses as of 04/04/2023) Immunizations Name Administration Dates Next Due Hepatitis [...] Progress Notes * Suzanne Vazquez RPh - 04/04/2023 9:38 AM EST Patient Phone Numbers [facility]. Follow up for discharge in 2 days. Suzanne Vazquez, Pharm D, BCACP Clinical Pharmacist 04/04/2023, 9:39 AM documented in this encounter Plan of Treatment Upcoming Encounters Date Type Department Care Team (Late st Contact Info) Description 04/06/2023 5:10 PM EST Anticoagulation Pharmacy, [facility] [address] [place] [address] [facility] 132 [facility] [place] [address] Health Maintenance Due Date Last Done Comments [...] fibrillation documented in this encounter Care Teams Optometric Aide Relationship Specialty Start Date End Date Julieth Hargrove PA-C [address] [place] [address], [place] [address] PCP - General Physician Packaging Design Engineer 03/18/21 documented as of this encounter
--- NOTE | 2023-04-18 03:31 | Emergency Department Note ---
Impression & Plan Confusion, Acute UTI, Elevated lactic acid level, Elevated WBC count ED Provider Note Provider: Wilver Antonio MD DATE OF SERVICE: 04/18/2023 CHIEF COMPLAINT: Confusion HISTORY OF PRESENT ILLNESS: Patient is a 72-year-old gentleman history of atrial fibrillation on digoxin and warfarin presenting here today via ambulance from [facility] where he was recently discharged to from this hospital. Patient is a history of A-fib as well as dementia. According to EMS this is their second visit there tonight as he was found on the floor earlier. Slid to the ground. Denies significant pain complaints. Denies headache, chest pain, shortness of breath. EMS reports patient was hallucinating and possibly seeing his brother in the room at the facility. Facility staff evidently reported that he was more confused than his baseline normal. Does have increased swelling of the lower legs as well as a chronic indwelling Estevez. No fever by EMS. Brought here for further evaluation given the confusion and sliding out of bed early this morning. PAST MEDICAL HISTORY: As noted above MEDICATIONS: Reviewed medication list from the facility SOCIAL HISTORY: Resides at [facility]. PHYSICAL EXAM: GENERAL: alert and oriented to year but not well with recent events in no acute distress on stretcher Head: normocephalic and atraumatic EYES: No injection, discharge or icterus. PERRL, EOMI. NECK: Trachea midline. Supple without midline cervical tenderness ENT: Mucous membranes pink and moist. LUNGS: Airway patent. No retractions. Breath sounds clear HEART: Regular rate and rhythm. No chest wall tenderness ABDOMEN: Soft and non-tender, without guarding or rebound. Chronic indwelling Estevez present. SKIN: Acyanotic, warm, dry without large decubitus ulcer noted EXTREMITIES: 3+ edema of the lower extremities left greater than right. Slight erythema of the left lower leg. NEUROLOGICAL: No focal deficits. No aphasia. No facial droop or slurred speech. Normal strength and tone in the extremities. Sensation to gross touch normal. EK bpm what appears to be a sinus tachycardia although bit of a poor baseline. Computer QTc E637 which I think is artifactual. No acute ST segment elevation or depression. CONTINUOUS CARDIAC MONITORING: was ordered and showed a heart rate of 100s bpm in sinus tachycardia to normal sinus rhythm in the 90s 1 view chest x-ray per my interpretation: No pneumothorax or free air. No clear filtrate other perhaps a little bit of pulmonary vascular congestion noted. No significant effusion. Patient's laboratory studies and imaging reviewed. Differential includes Infection, dehydration, metabolic abnormality, hypo/hyperglycemia, electrolyte disturbance, anemia, hypoxia, cardiac sources, intracerebral event, toxicologic, neurologic, as well as other pathologies. IMPRESSION/MEDICAL DECISION MAKING: Patient in no obvious distress. Not the best historian but is oriented to the year. Somewhat odd affect. Again reports of hallucinations not being his mental baseline. Anticoagulated. Basic blood work including coags, blood cultures, urinalysis, CK, and basic labs were ordered. Possibly infectious etiology but does not appear meningitic by any means. No significant chest or abdominal discomfort reported or tenderness on exam. Significant swelling of the lower extremities although much of this is chronic versus new is not quite clear. Not having any oxygen requirement at this point. Blood work here without anemia but with a new leukocytosis of 15.3. Mildly tachycardic but given the evidence of the fluid over the lower extremities avoiding significant fluid boluses at this time. Will give a small 250 cc fluid bolus to see if responsive. Again given concerns for fluid overload we will hold off on additional aggressive boluses although BNP returns not significantly elevated at 60. CK not significantly elevated. Electrolytes without significant abnormality other than a slight anion gap 14. No troponin elevation. Lactate elevated 3.8 although was somewhat difficult to obtain. Urinalysis with some blood few white blood cells and 1+ bacteria but negative for nitrates and leuk esterase. Do not have a clear source but covered with antibiotics. Prior microbiology was reviewed in reference to his urine samples. Will bring in for further care. Procalcitonin not severely elevated and suggest against a true severe sepsis picture. DIAGNOSIS: Increased confusion, elevated lactic acid, UTI, other white blood cell count DISPOSITION: Hospitalist will evaluate Patient was agreeable with this plan. Past Med/Surg History Medical History Obstructive sleep apnea Urinary tract infection Cellulitis of lower extremity Arthritis of left hip Hip bursitis, left Diastolic heart failure CAD (coronary artery disease) s/p BMS to RCA in 1997 IBS (irritable bowel syndrome) Chronic obstructive pulmonary disease controlled w/ inhaler Sleep apnea CPAP- not currently using due to worries about safety after recall, to speak w/ dr about Osteoarthritis Diabetes mellitus, type 2 NIDDM- no longer taking metformin due to bowel issues per pt Hearing deficit [place] Hyperlipidemia Atrial fibrillation dx 1 year ago - on warfarin - follows dr. ruiz needs cardioversion and had cardioversion x 2 about a year ago 09/22/21- last visit w/ joseph about 6 mos ago, states is due for another visit Pilonidal cyst Depression Obesity Anemia Migraines Myocardial infarction 1997 Chronic GERD Hypertension Surgical History History of heart artery stent 1997 - [place] - 1 stent placed - hospital in [place], [place] reports had another cath early in [facility] - no stents/angioplasty now follows w/ dr ruiz- 6 mos since last visit History of cataract surgery right and left History of total hip arthroplasty RT History of total shoulder replacement BL History of esophagogastroduodenoscopy (EGD) H/O colonoscopy Hx laparoscopic cholecystectomy Family History Brother Family history of diabetes mellitus X2 Social History Smoking Status: Never smoker Tobacco Type: Cigarettes Second Hand Exposure: No; Do You Dip or Chew Tobacco: No; Hx Alcohol Use: No Hx Substance Use: No Preferred Language: Pakistani Communication Ability: Effective Claim Professional Required: No Beliefs That Will Affect Care: Episcopal Episcopal Beliefs: Mormonism Current Living Situation: Shelter Feels Safe at Home: Yes Assistive Devices: Walker Allergies Allergies Allergy/AdvReac Type Severity Reaction Status Date / Time No Known Allergies Allergy Verified 03/26/23 17:37 Home Meds Home Medications Medication Instructions Recorded Confirmed aspirin 81 mg tablet,delayed 81 mg PO DAILY 05/18/18 03/26/23 release doxazosin 1 mg tablet (Cardura) 1 mg PO HS 05/18/18 03/26/23 folic acid 1 mg tablet 1 mg PO BID 05/18/18 03/26/23 rosuvastatin 20 mg tablet 20 mg PO QPM 05/18/18 03/26/23 nitroglycerin 0.4 mg sublingual 0.4 mg sublingual .EVERY 5 MIN PRN 08/14/18 03/26/23 tablet (Nitrostat) Chest Pain cholecalciferol (vitamin D3) 50 50 mcg PO DAILY 09/04/19 03/26/23 mcg (2,000 unit) capsule (Vitamin D3) pantoprazole 40 mg tablet,delayed 40 mg PO DAILY 02/18/23 03/26/23 release warfarin 5 mg tablet 5 mg PO .HOLD THRU 03/27/23 02/18/23 03/26/23 acetaminophen 325 mg tablet 650 mg PO Q6 PRN Fever Or Pain 03/26/23 03/26/23 albuterol sulfate 90 mcg/actuation 2 inh inhalation Q6H PRN Wheezing 03/26/23 03/26/23 breath activated powder inhaler (ProAir RespiClick) clotrimazole 1 % topical cream 1 applic topical QS 03/26/23 03/26/23 coQ10 (ubiquinol) 200 mg capsule 400 mg PO DAILY 03/26/23 03/26/23 empagliflozin 25 mg tablet 25 mg PO DAILY 03/26/23 03/26/23 (Jardiance) furosemide 40 mg tablet (Lasix) 40 mg PO BID 03/26/23 03/26/23 melatonin 3 mg disintegrating 3 mg PO HS 03/26/23 03/26/23 tablet miconazole nitrate 2 % topical 1 applic EXT QS 03/26/23 03/26/23 powder (Desenex) multivitamin (Daily-Lala tablet) 1 tab PO DAILY 03/26/23 03/26/23 potassium chloride 10 mEq 10 meq PO TID 03/26/23 03/26/23 tablet,extended release(part/cryst) sennosides 8.6 mg tablet (Senokot) 17.2 mg PO DAILY 03/26/23 03/26/23 warfarin 6 mg tablet 6 mg PO HS 03/26/23 03/26/23 Previous Rx's Medication Instructions Recorded melatonin 3 mg tablet 3 mg PO HS #0 tabs 03/05/23 metoprolol tartrate 25 mg tablet 12.5 mg (1/2 x 25 mg) PO BID #0 03/05/23 tabs polyethylene glycol 3350 17 gram 17 g PO DAILY #0 ea 03/05/23 oral powder packet (Miralax) Results & Data (ED) Vital Signs Vital Signs - 24 hr 04/18/23 03:30 04/18/23 03:31 04/18/23 03:31 Temperature 36.9 C Temperature Source Oral Pulse Rate 108 H 108 H Pulse Rhythm Regular Regular Respiratory Rate 15 15 Respiratory Effort / Characteristics Non-Labored Respiratory Depth Normal Blood Pressure 118/76 Blood Pressure Mean 90 Pulse Oximetry 95 95 95 Oxygen Delivery Method Room Air Room Air Room Air Sepsis Recent Fever Within 48 Hours No Sepsis New/Unexplained Change in Mental Status No Sepsis Action Taken by Nursing No Action Required 04/18/23 04:00 04/18/23 04:30 04/18/23 04:52 Temperature Temperature Source Pulse Rate 109 H 110 H 107 H Pulse Rhythm Respiratory Rate 14 18 Respiratory Effort / Characteristics Respiratory Depth Blood Pressure 121/76 96/70 L Blood Pressure Mean 91 78 Pulse Oximetry 96 Oxygen Delivery Method Sepsis Recent Fever Within 48 Hours Sepsis New/Unexplained Change in Mental Status Sepsis Action Taken by Nursing 04/18/23 05:00 Temperature Temperature Source Pulse Rate 108 H Pulse Rhythm Respiratory Rate 16 Respiratory Effort / Characteristics Respiratory Depth Blood Pressure 101/82 Blood Pressure Mean 88 Pulse Oximetry 96 Oxygen Delivery Method Sepsis Recent Fever Within 48 Hours Sepsis New/Unexplained Change in Mental Status Sepsis Action Taken by Nursing Laboratory Data 04/18/23 03:40 04/18/23 03:40 Lab Results 04/18/23 04/18/23 04/18/23 Range/Units 03:40 04:30 05:09 WBC 15.38 H (4.8-10.8) K/ul RBC 5.35 (4.70-6.10) M/uL Hgb 16.4 (14.0-18.0) g/dl Hct 48.2 (42.0-52.0) % MCV 90.1 (80.0-100.0) fL MCH 30.7 (25.0-34.0) pg MCHC 34.0 (32.0-36.0) g/dL RDW Std Deviation 47.8 H (36.4-46.3) fL RDW Coeff of Carlton 14.6 H (11.5-14.5) % Plt Count 349 (130-400) K/uL MPV 10.5 (9.4-12.4) fL Immature Gran % (Auto) 0.6 % Neut % (Auto) 85.3 % Lymph % (Auto) 5.2 % [place] % (Auto) 8.4 % Eos % (Auto) 0.1 % Baso % (Auto) 0.4 % Neut # (Auto) 13.13 H (1.40-6.50) K/uL Lymph # (Auto) 0.80 L (1.20-3.40) K/uL [place] # (Auto) 1.29 H (0.11-0.59) K/uL Eos # (Auto) 0.01 (0.00-0.50) K/uL Baso # (Auto) 0.06 (0.00-0.20) K/uL Immature Gran # (Auto) 0.09 (0.01-0.20) K/uL PT 43.2 H (9.0-12.0) Seconds INR 4.3 H (0.9-1.1) Sodium 141 (136-145) mmol/L Potassium 4.0 (3.5-5.1) mmol/L Chloride 105 (98-107) mmol/L Carbon Dioxide 22 (21-32) mmol/L Anion Gap 14 H (3-11) BUN 19 (6-23) mg/dl Creatinine 1.08 (0.6-1.4) mg/dl Est Cr Clr Drug Dosing 76.4 ml/min Est GFR ( Amer) 78.5 ml/min Est GFR (Non-Af Amer) 67.7 ml/min BUN/Creatinine Ratio 17.6 (10-20) Glucose 153 H (70-99(Fasting)) mg/dl Lactate 3.8 H* (0.4-2.0) mmol/L Calcium 9.7 (8.6-10.3) mg/dl Magnesium 2.0 (1.7-2.4) mg/dl Total Bilirubin 1.0 (0.2-1.0) mg/dl AST 42 H (13-39) U/L ALT 35 (7-52) U/L Alkaline Phosphatase 95 (34-104) U/L Total Creatine Kinase 257 H (30-223) U/L Troponin I High Sens 16.3 (0-20) pg/ml B-Natriuretic Peptide (0-100) pg/ml Total Protein 8.1 (6.0-8.3) gm/dl Albumin 3.9 (3.4-5.0) gm/dl Globulin 4.2 H (2.5-4.0) gm/dl Albumin/Globulin Ratio 0.9 (0.9-2) Procalcitonin 0.08 (0-0.5) ng/ml TSH 5.912 H (0.300-4.500) uIu/ml Free T4 1.41 (0.61-1.60) ng/dl Urine Color Yellow Urine Appearance Clear (Clear) Urine pH 5.0 (4.5-7.5) Ur Specific [place] 1.015 (1.000-1.030) Urine Protein Negative (Negative) Urine Glucose (UA) 3+ H (Negative) Urine Ketones Negative (Negative) Urine Blood 2+ H (Negative) Urine Nitrite Negative (Negative) Urine Bilirubin Negative (Negative) Urine Urobilinogen Negative (Negative) Ur Leukocyte Esterase Negative (Negative) Urine RBC >30 H (0-4) /hpf Urine WBC 5-10 H (0-5) /hpf Ur Epithelial Cells 0-5 (0-5) /lpf Urine Bacteria 1+ H (Negative) Hyaline Casts 0-5 (0-5) /lpf Digoxin < 0.3 L (0.8-2.0) ng/ml SARS-CoV-2, RNA, NAAT NEGATIVE (NEGATIVE) 04/18/23 Range/Units 05:32 WBC (4.8-10.8) K/ul RBC (4.70-6.10) M/uL Hgb (14.0-18.0) g/dl Hct (42.0-52.0) % MCV (80.0-100.0) fL MCH (25.0-34.0) pg MCHC (32.0-36.0) g/dL RDW Std Deviation (36.4-46.3) fL RDW Coeff of Carlton (11.5-14.5) % Plt Count (130-400) K/uL MPV (9.4-12.4) fL Immature Gran % (Auto) % Neut % (Auto) % Lymph % (Auto) % [place] % (Auto) % Eos % (Auto) % Baso % (Auto) % Neut # (Auto) (1.40-6.50) K/uL Lymph # (Auto) (1.20-3.40) K/uL [place] # (Auto) (0.11-0.59) K/uL Eos # (Auto) (0.00-0.50) K/uL Baso # (Auto) (0.00-0.20) K/uL Immature Gran # (Auto) (0.01-0.20) K/uL PT (9.0-12.0) Seconds INR (0.9-1.1) Sodium (136-145) mmol/L Potassium (3.5-5.1) mmol/L Chloride (98-107) mmol/L Carbon Dioxide (21-32) mmol/L Anion Gap (3-11) BUN (6-23) mg/dl Creatinine (0.6-1.4) mg/dl Est Cr Clr Drug Dosing ml/min Est GFR ( Amer) ml/min Est GFR (Non-Af Amer) ml/min BUN/Creatinine Ratio (10-20) Glucose (70-99(Fasting)) mg/dl Lactate (0.4-2.0) mmol/L Calcium (8.6-10.3) mg/dl Magnesium (1.7-2.4) mg/dl Total Bilirubin (0.2-1.0) mg/dl AST (13-39) U/L ALT (7-52) U/L Alkaline Phosphatase (34-104) U/L Total Creatine Kinase (30-223) U/L Troponin I High Sens (0-20) pg/ml B-Natriuretic Peptide 60 (0-100) pg/ml Total Protein (6.0-8.3) gm/dl Albumin (3.4-5.0) gm/dl Globulin (2.5-4.0) gm/dl Albumin/Globulin Ratio (0.9-2) Procalcitonin (0-0.5) ng/ml TSH (0.300-4.500) uIu/ml Free T4 (0.61-1.60) ng/dl Urine Color Urine Appearance (Clear) Urine pH (4.5-7.5) Ur Specific [place] (1.000-1.030) Urine Protein (Negative) Urine Glucose (UA) (Negative) Urine Ketones (Negative) Urine Blood (Negative) Urine Nitrite (Negative) Urine Bilirubin (Negative) Urine Urobilinogen (Negative) Ur Leukocyte Esterase (Negative) Urine RBC (0-4) /hpf Urine WBC (0-5) /hpf Ur Epithelial Cells (0-5) /lpf Urine Bacteria (Negative) Hyaline Casts (0-5) /lpf Digoxin (0.8-2.0) ng/ml SARS-CoV-2, RNA, NAAT (NEGATIVE) Administered Medications Discontinued Medications Piperacillin Sod/Tazobactam Sod (Zosyn) 4.5 gm in 100 mls @ 200 mls/hr IV NOW ONE Stop: 04/18/23 06:23 Last Admin: 04/18/23 06:06 Dose: 200 mls/hr Documented By: KRISTY Sodium Chloride (Nss) 250 mls @ 999 mls/hr IV .Q16M ONE Stop: 04/18/23 06:27 Last Admin: 04/18/23 06:22 Dose: 999 mls/hr Documented By: KRISTY Imaging Data Radiologist's Impression: Head CT 04/18/23 03:22 Exam(s): CT HEAD Without Contrast EXAM: CT Head Without Intravenous Contrast CLINICAL HISTORY: Reason for exam: ams. TECHNIQUE: Axial computed tomography images of the head/brain without intravenous contrast. CTDI is 37.22 mGy and DLP is 625.8 mGy-cm. Automated exposure control was utilized for the study. A dose lowering technique was utilized adhering to the principles of ALARA. COMPARISON: No relevant prior studies available. FINDINGS: Brain: Volume loss with prominent ventricles and sulci. Periventricular and subcortical white matter hypoattenuation likely reflects chronic small vessel disease. No hemorrhage. Ventricles: See above. Bones/joints: Unremarkable. No acute fracture. Soft tissues: Unremarkable. Sinuses: Unremarkable as visualized. No acute sinusitis. Mastoid air cells: Unremarkable as visualized. No mastoid effusion. IMPRESSION: No acute findings in the head/brain. Electronically signed by: Milena Rueda M.D. 04/18/23 04:59 AM Discharge Plan Visit Data Chief Complaint: Confusion Stated Complaint: AMS, Urinary Symptoms ED Provider: Wilver Antonio Discharge Problem: Confusion, Acute UTI, Elevated lactic acid level, Elevated WBC count Patient Disposition: Being Evaluated by Hospitalist Forms Stand Alone Forms: My [facility] [place] [employer] Prescriptions Prescriptions: No Action aspirin 81 mg Tablet,Delayed Release (Dr/Ec) 81 mg PO DAILY rosuvastatin 20 mg Tablet 20 mg PO QPM folic acid 1 mg Tablet 1 mg PO BID doxazosin [Cardura] 1 mg Tablet 1 mg PO HS nitroglycerin [Nitrostat] 0.4 mg Tablet, Sublingual 0.4 mg sublingual .EVERY 5 MIN PRN (Reason: Chest Pain) Rx Instructions: x3 doses q 5mins for chest pain cholecalciferol (vitamin D3) [Vitamin D3] 50 mcg (2,000 unit) Capsule 50 mcg PO DAILY warfarin 5 mg tablet 5 mg PO .HOLD THRU 03/27/23 Rx Instructions: take 2 tablets in evening on tuesday,tuesday, ...other day take 1 tablet in evening pantoprazole 40 mg tablet,delayed release (DR/EC) 40 mg PO DAILY metoprolol tartrate 25 mg Tablet 12.5 mg PO BID Qty: 0 0RF polyethylene glycol 3350 [Miralax] 17 gram Powder In Packet 17 g PO DAILY Qty: 0 0RF melatonin 3 mg Tablet 3 mg PO HS Qty: 0 0RF melatonin 3 mg Tablet,Disintegrating 3 mg PO HS potassium chloride 10 mEq tablet,ER particles/crystals 10 meq PO TID Rx Instructions: x 3 days...ordered 03/25/23 sennosides [Senokot] 8.6 mg tablet 17.2 mg PO DAILY warfarin 6 mg tablet 6 mg PO HS Rx Instructions: take on 03/25/23 and 03/26/23 furosemide [Lasix] 40 mg tablet 40 mg PO BID Rx Instructions: daily at 0800 and 2000 Jardiance 25 mg tablet 25 mg PO DAILY miconazole nitrate [Desenex] 2 % powder 1 applic EXT QS Rx Instructions: apply to affected area every shift for irritation multivitamin [Daily-Lala] Tablet 1 tab PO DAILY coQ10 (ubiquinol) 200 mg Capsule 400 mg PO DAILY Rx Instructions: using softgel clotrimazole 1 % Cream 1 applic TOPICAL QS Rx Instructions: apply to groin every shift for fungal excoriation acetaminophen 325 mg Tablet 650 mg PO Q6 MDD 3g PRN (Reason: Fever Or Pain) ProAir RespiClick 90 mcg/actuation Aerosol Powdr Breath Activated 2 inh INHALATION Q6H PRN (Reason: Wheezing) Referrals Referrals: Ta Ruiz DO [Primary Care Provider] -
[2023-04-18 04:04] LABS: Basophils # (auto) 0.06 K/uL (0.00-0.20); Basophils % (auto) 0.4 %; Eosinophils # (auto) 0.01 K/uL (0.00-0.50); Eosinophils % (auto) 0.1 %; Hematocrit (blood only) 48.2 % (42.0-52.0); Hemoglobin 16.4 g/dl (14.0-18.0); Immature Granulocytes # (auto) 0.09 K/uL (0.01-0.20); Immature Granulocytes % (auto) 0.6 %; Lymphocytes % (auto) 5.2 %; Mean Corpuscular Hemoglobin 30.7 pg (25.0-34.0); Mean Corpuscular Volume 90.1 fL (80.0-100.0); Mean Platelet Volume 10.5 fL (9.4-12.4); Monocytes # (auto) 1.29 K/uL (0.11-0.59); Monocytes % (auto) 8.4 %; Neutrophils # (auto) 13.13 K/uL (1.40-6.50); Neutrophils % (auto) 85.3 %; Platelet Count 349 K/uL (130-400); RDW Coefficient of Variation 14.6 % (11.5-14.5); RDW Standard Deviation 47.8 fL (36.4-46.3); Red Blood Count 5.35 M/uL (4.70-6.10); White Blood Count 15.38 K/ul (4.8-10.8)
[2023-04-18 04:18] LABS: Albumin Globulin Ratio 0.9 (0.9-2); Albumin Level 3.9 gm/dl (3.4-5.0); BUN Creatinine Ratio 17.6 (10-20); Calcium 9.7 mg/dl (8.6-10.3); Creatinine Clr Calc Pharmacy 76.4 ml/min; Est GFR (African American) 78.5 ml/min; Est GFR (Non-African American) 67.7 ml/min; Globulin 4.2 gm/dl (2.5-4.0); Total Protein 8.1 gm/dl (6.0-8.3)
[2023-04-18 04:24] LABS: Troponin I High Sensitivity 16.3 pg/ml (0-20)
[2023-04-18 04:33] LABS: Thyroid Stimulating Hormone 5.912 uIu/ml (0.300-4.500)
--- NOTE | 2023-04-18 05:00 | CT Scan Report ---
Exam(s): CT HEAD Without Contrast EXAM: CT Head Without Intravenous Contrast CLINICAL HISTORY: Reason for exam: ams. TECHNIQUE: Axial computed tomography images of the head/brain without intravenous contrast. CTDI is 37.22 mGy and DLP is 625.8 mGy-cm. Automated exposure control was utilized for the study. A dose lowering technique was utilized adhering to the principles of ALARA. COMPARISON: No relevant prior studies available. FINDINGS: Brain: Volume loss with prominent ventricles and sulci. Periventricular and subcortical white matter hypoattenuation likely reflects chronic small vessel disease. No hemorrhage. Ventricles: See above. Bones/joints: Unremarkable. No acute fracture. Soft tissues: Unremarkable. Sinuses: Unremarkable as visualized. No acute sinusitis. Mastoid air cells: Unremarkable as visualized. No mastoid effusion. IMPRESSION: No acute findings in the head/brain. Electronically signed by: Milena Rueda M.D. 04/18/23 04:59 AM
[2023-04-18 05:09] LABS: T4 Free Thyroxine 1.41 ng/dl (0.61-1.60)
[2023-04-18 05:12] LABS: Appearance Urine Clear (Clear); Bilirubin Urine Negative (Negative); Blood Urine 2+ (Negative); Color Urine Yellow; Glucose Urine UA 3+ (Negative); Ketones Urine Negative (Negative); Leukocyte Esterase Urine Negative (Negative); Nitrite Urine Negative (Negative); Protein Urine Negative (Negative); Specific Gravity Urine 1.015 (1.000-1.030); Urobilinogen Urine Negative (Negative)
[2023-04-18 05:30] LABS: Bacteria Urine 1+ (Negative); Hyaline Casts Urine 0-5 /lpf (0-5)
[2023-04-18 05:31] LABS: Epithelial Cell Urine 0-5 /lpf (0-5); RBC Urine >30 /hpf (0-4)
[2023-04-18] MEDS: PIPERACILLIN/TAZOBACTAM 4.5 GM/100 ML BAG IV ONE (06:06)
[2023-04-18 06:22] LABS: INR 4.3 (0.9-1.1); Prothrombin Time 43.2 Seconds (9.0-12.0)
[2023-04-18] MEDS: SODIUM CHLORIDE 0.9% 250 ML IV ONE (06:22)
[2023-04-18] MEDS ORDERED: ACETAMINOPHEN 325 MG TAB PO PRN (07:40)
--- NOTE | 2023-04-18 07:55 | XRay Report ---
XR chest 1V portable CLINICAL HISTORY: ams TECHNIQUE: Single frontal radiograph of the chest was obtained. Comparison: Comparison is made to chest radiograph 10/16/[address] chest 03/26/2023 FINDINGS: Bilateral shoulder arthroplasties noted. The cardiomediastinal silhouette is normal. The lungs are cl ear. No evidence of pleural effusion or pneumothorax. IMPRESSION: No acute chest disease. ACT 112: Negative or not required by law. Electronically signed by: Eric Chavez M.D. 04/18/2023 7:53 AM
--- NOTE | 2023-04-18 09:00 | Hospitalist Progress Note ---
Date of Service April 18, 2023 Review of Systems Constitutional: + fatigue; no fever, no chills and no christy dy aches Ear, Nose, Mouth, Throat: no nasal congestion, no nasal discharge, no sinus pain/pressure and no sore throat Respiratory: no cough, no dyspnea and no pain on inspiration Cardiovascular: no chest pain and no palpitations Physical Exam Respiratory: Auscultation: breath sounds present, no crackles and no wheezes Cardiovascular: RRR, no murmur, no edema Gastrointestinal (Abdomen): Inspection/Auscultation: normal bowel sounds Neurologic: Speech / Cognition: + abnormal speech (slurring his words) Psychiatric: Orientation: alert, oriented to person and cooperative Results & Data Results & Data Vital Signs (Past 12 Hours) Vital Signs Temp Pulse Pulse Resp BP BP Pulse Ox 04/18/23 07:30 98 H 18 105/63 96 04/18/23 07:12 98 H 16 121/87 93 04/18/23 06:30 103 H 12 04/18/23 06:00 105 H 14 04/18/23 05:30 107 H 14 04/18/23 05:00 108 H 16 101/82 96 04/18/23 04:52 107 H 04/18/23 04:30 110 H 18 96/70 L 96 04/18/23 04:00 109 H 14 121/76 04/18/23 03:31 108 H 15 95 04/18/23 03:31 36.9 C 108 H 15 118/76 95 04/18/23 03:30 95 O2 Del Method 04/18/23 07:30 Room Air 04/18/23 07:12 Room Air 04/18/23 06:30 04/18/23 06:00 04/18/23 05:30 04/18/23 05:00 04/18/23 04:52 04/18/23 04:30 04/18/23 04:00 04/18/23 03:31 Room Air 04/18/23 03:31 Room Air 04/18/23 03:30 Room Air
[2023-04-18] MEDS ORDERED: NITROGLYCERIN SL 0.4 MG/TAB TAB SL PRN (09:57)
[2023-04-18] MEDS ORDERED: ALBUTEROL HFA 8 GM INHALER INH PRN (10:08)
[2023-04-18] MEDS: ASPIRIN 81 MG ECTAB PO SCH (11:02)
[2023-04-18] MEDS: SENNA 8.6 MG TAB PO SCH (11:02)
[2023-04-18] MEDS: POTASSIUM CHLORIDE 10 MEQ TABCR PO SCH (11:02)
[2023-04-18] MEDS: PANTOprazole 40 MG TAB PO SCH (11:02)
[2023-04-18] MEDS: POLYETHYLENE (MIRALAX) 17 GM PACK PO SCH (11:02)
[2023-04-18] MEDS: METOPROLOL TARTRATE 25 MG TAB PO SCH (11:03)
[2023-04-18] MEDS: EMPAGLIFLOZIN 25 MG TAB PO SCH (11:03)
[2023-04-18] MEDS: FUROSEMIDE 40 MG TAB PO SCH (11:03)
--- NOTE | 2023-04-18 14:36 | Ultrasound Report ---
ULTRASOUND LEFT LOWER EXTREMITY VENOUS CLINICAL HISTORY: Left calf pain and swelling. COMPARISON STUDY: Bilateral lower extremity venous ultrasound dated 02/18/2023. TECHNIQUE: Real-time, grayscale, and color Doppler sonography of the deep veins of the left lower ext remity was performed from the inguinal crease to the calf. Compression and augmentation were utilized . FINDINGS: The common femoral vein is patent. There is extensive nearly occlusive to occlusive deep ve nous thrombosis throughout the left lower extremity. This extends from the proximal superficial vein to the distal popliteal vein. The greater saphenous vein and the profunda femoris vein at the junctio n with the common femoral vein are clear. The visualized calf veins are patent. The calf vessels were not well assessed. IMPRESSION: Again seen is extensive nearly occlusive to occlusive deep venous thrombosis throughout t he left lower extremity as above. ACT 112: Negative or not required by law. Electronically signed by: Contreras Aguirre M.D. 04/18/2023 2:34 PM
--- NOTE | 2023-04-18 18:33 | History & Physical Report ---
Date of Service April 18, 2023 Assessment & Plan (1) Elevated WBC count: (2) Elevated lactic acid level: (3) Acute UTI: (4) Confusion: (5) DVT (deep venous thrombosis): (6) Sacral wound: (7) Morbid obesity with BMI of 40.0-44.9, adult: Plan 1) Confusion/Altered Mental Status/Encephalopathy - patient more confused, less oriented (AAO x 1) than baseline according to staff at [facility] - WBC, 15.4, leukocytosis, HR 109 on admission - no fevers, -but elevated lactate, 2.2 <- 3.8, procal 0.08, meets SIRS criteria - Zosyn, 4.5 g, IV, BID --> modify based on Cxs 2) UTI - UA: 3+ blood, 1+ bacteria, WBC 5-10 - Ur Cx pending 3) DVT, LLE - Doppler US of LLE revealed - warfarin, 5 mg, PO, nightly - goal INR, 2-3 4) sacral superficial pressure ulcer (l. buttock) - rotate patient in bed periodically to relieve pressure - consider consult to Wound Care 5) L5 vertebral fracture noted on previous admission Repeat MRI in 1 month. 6) Paroxysmal atrial fibrillation - stable Continue metoprolol 12.5 mg twice daily, can titrate as needed, - Had RVR of 170 during prior admission 7) CAD With history of PCI Continue metoprolol, aspirin, rosuvastatin Last echo with EF 55-59% 2018 8) Obstructive sleep apnea: CPAP nightly 9) Diabetes (T2DM): Last A1c 7.2% Consider weight-based basal bolus after Glu tomorrow DM2/heart healthy diet Admission and Anticipated Discharge Date Admission Date: April 18, 2023 History of Present Illness Chief Complaint: Encephalopathy, Altered Mental Status Primary Care Provider: Ta Ruiz DO Patient is a 72-year-old gentleman history of atrial fibrillation on digoxin and warfarin presenting here today via ambulance from [facility] where he was recently discharged to from this hospital. Patient is a history of A-fib as well as dementia. According to EMS this is their second visit there tonight as he was found on the floor earlier. Slid to the ground. Denies significant pain complaints. Denies headache, chest pain, shortness of breath. EMS reports patient was hallucinating and possibly seeing his brother in the room at the facility. Facility staff evidently reported that he was more confused than his baseline normal. Does have increased swelling of the lower legs as well as a chronic indwelling Estevez. No fever by EMS. Brought here for further evaluation given the confusion and sliding out of bed early this morning. I saw the patient this morning and he is AAO x 1 as he was upon discharge a few days ago, with noticeable addition of slurred speech as compared to prior d/c. Patient does not endorse any pain anywhere upon ROS but is sensitive to palpation for pain in LLE, abdominal area in particular, and to some extent to pain in sacral area. Patient cooperative, conversant, somewhat hard of hearing, at times seems to persevere on independent subject matter. Allergies Allergy/AdvReac Type Severity Reaction Status Date / Time No Known Allergies Allergy Verified 03/26/23 17:37 Home Medications Medication Instructions Recorded Confirmed Type aspirin 81 mg tablet,delayed 81 mg PO DAILY 05/18/18 04/18/23 History release doxazosin 1 mg tablet (Cardura) 1 mg PO HS 05/18/18 04/18/23 History folic acid 1 mg tablet 1 mg PO BID 05/18/18 04/18/23 History rosuvastatin 20 mg tablet 20 mg PO QPM 05/18/18 04/18/23 History nitroglycerin 0.4 mg sublingual 0.4 mg sublingual .EVERY 5 MIN PRN 08/14/18 04/18/23 History tablet (Nitrostat) Chest Pain cholecalciferol (vitamin D3) 50 50 mcg PO DAILY 09/04/19 04/18/23 History mcg (2,000 unit) capsule (Vitamin D3) pantoprazole 40 mg tablet,delayed 40 mg PO DAILY 02/18/23 04/18/23 History release warfarin 5 mg tablet 5 mg PO HS 02/18/23 04/18/23 History metoprolol tartrate 25 mg tablet 12.5 mg (1/2 x 25 mg) PO BID #0 03/05/23 04/18/23 Rx tabs acetaminophen 325 mg tablet 650 mg PO Q6 PRN Fever Or Pain 03/26/23 04/18/23 History coQ10 (ubiquinol) 200 mg capsule 400 mg PO DAILY 03/26/23 04/18/23 History empagliflozin 25 mg tablet 25 mg PO DAILY 03/26/23 04/18/23 History (Jardiance) furosemide 40 mg tablet (Lasix) 40 mg PO BID 03/26/23 04/18/23 History melatonin 3 mg disintegrating 3 mg PO HS 03/26/23 04/18/23 History tablet multivitamin (Daily-Lala tablet) 1 tab PO DAILY 03/26/23 04/18/23 History potassium chloride 10 mEq 10 meq PO BID 03/26/23 04/18/23 History tablet,extended release(part/cryst) sennosides 8.6 mg tablet (Senokot) 17.2 mg PO DAILY 03/26/23 04/18/23 History polyethylene glycol 3350 17 gram 17 g PO DAILY 04/18/23 04/18/23 History oral powder packet (ClearLax) Past Med/Surg History Medical History Obstructive sleep apnea Urinary tract infection Cellulitis of lower extremity Arthritis of left hip Hip bursitis, left Diastolic heart failure CAD (coronary artery disease) s/p BMS to RCA in 1997 IBS (irritable bowel syndrome) Chronic obstructive pulmonary disease controlled w/ inhaler Sleep apnea CPAP- not currently using due to worries about safety after recall, to speak w/ about Osteoarthritis Diabetes mellitus, type 2 NIDDM- no longer taking metformin due to bowel issues per pt Hearing deficit [place] Hyperlipidemia Atrial fibrillation dx 1 year ago - on warfarin - follows dr. ruiz needs cardioversion and had cardioversion x 2 about a year ago 09/22/21- last visit w/ joseph about 6 mos ago, states is due for another visit Pilonidal cyst Depression Obesity Anemia Migraines Myocardial infarction 1997 Chronic GERD Hypertension Surgical History History of heart artery stent 1997 - [place] - 1 stent placed - hospital in [place], [place] reports had another cath early 1999s [place] - no stents/aleksandr oplasty now follows w/ dr ruiz- 6 mos since last visit History of cataract surgery right and left History of total hip arthroplasty RT History of total shoulder replacement BL History of esophagogastroduodenoscopy (EGD) H/O colonoscopy Hx laparoscopic cholecystectomy Family History Brother Family history of diabetes mellitus X2 Social History Smoking Status: Never smoker Tobacco Type: Cigarettes Second Hand Exposure: No; Do You Dip or Chew Tobacco: No; Hx Alcohol Use: No Hx Substance Use: No Preferred Language: [place] Communication Ability: Effective Pulmonary Nurse Practitioner Required: No Beliefs That Will Affect Care: Cheondoism Cheondoism Beliefs: Hoahaoism Current Living Situation: Detention Feels Safe at Home: Yes Assistive Devices: Walker Review of Systems Constitutional: + fatigue; no fever, no chills and no christy dy aches Ear, Nose, Mouth, Throat: no nasal congestion, no nasal discharge, no sinus pain/pressure and no sore throat Respiratory: no cough, no dyspnea and no pain on inspiration Cardiovascular: no chest pain and no palpitations Gastrointestinal: no nausea, no vomiting and no diarrhea/loose stools Genitourinary: no dysuria Neurologic: no tingling and no numbness Physical Exam Respiratory: Auscultation: breath sounds present, no crackles and no wheezes Cardiovascular: RRR, no murmur, no edema Gastrointestinal (Abdomen): Inspection/Auscultation: normal bowel sounds Percussion/Palpation: + abdomen tender (diffuse abdominal pain (5/10) but only o n palpation); abdomen not rigid Musculoskeletal: Extremities: + lower extremity abnormal to inspection (l. calf, thigh, popliteal fossa tender (8/10) upon palpation) Left; full ROM of lower extremities Skin: + ulcer (superficial pressure ulcer on l . buttock) Neurologic: Speech / Cognition: + abnormal speech (slurring his words) Psychiatric: Orientation: alert, oriented to person and cooperative Results & Data Results & Data Vital Signs (Past 12 Hours) Vital Signs Pulse Pulse Resp BP Pulse Ox O2 Del Method 04/18/23 15:00 93 H 04/18/23 10:01 99 H 18 121/84 94 Room Air 04/18/23 09:18 100 H 04/18/23 09:00 101 H 18 129/92 95 Room Air 04/18/23 07:30 98 H 18 105/63 96 Room Air 04/18/23 07:12 98 H 16 121/87 93 Room Air 04/18/23 06:30 103 H 12 Code Status & VTE Plan VTE Prophylaxis Plan VTE Prophylaxis will be ordered: Yes Supervising Physician Co-Signing Physician Notes I personally examined the patient and verified all siddiqi points of history and exam, discussed case, and agree with decision making with Dr Lemos No meaningful HPI or review of systems obtainable. Patient relates things like being here due to issues with public transportation, and relates that he expects his senior net application developer to scratch really deep and discovery about why he is here. Fortunately denies any pain or shortness of breath, denies any focal symptomsobviously this is only on directed questioning and of somewhat limited veracity, but he was able to give consideration to my direct questions and seemed to provide at least an accurate proximal answer. Vitals noted, in general he is awake and alert disoriented but no distress. HEENT normocephalic atraumatic mucous membranes moist. Breathing unlabored no accessory muscle use good effort. Skin shows no rashes no pallor or icterus. Lungs are clear, abdomen soft. Venous stasis changes bilateral lower extremities but nothing appearing cellulitic deliriumdifferential broad: Infectiouskp does have a white count of 15, but no other clear signs or symptoms of infection. Follow cultures, serial exams, inflammatory markers. (Right now CRP and procalcitonin are very reassuringfollow into tomorrow) metabolicunclear how well he has been doing eating and drinking, and certainly dehydration is a very common cause for metabolic driven delirium. Gentle IV fluids, follow p.o. intake, follow basic metabolic panel. Hilary had been in the hospital for a fairly prolonged stay seeking disposition, and then return to his personal fci. In discussion with resident physician who had him at the end of last admission as well, he sounded to have been getting somewhat delirious even prior to dischargegiven the long arc of the delirium once it starts, it certainly possible that we are seeing ongoing delirium from his previous prolonged hospital stay toxicsame as above in discussions with resident physician, he apparently did require 1 dose of Zyprexa prior to discharge, which, obviously would not still have any significant half-life in his body, but could have altered sensorium prior to shifting environment is contributing to the delirium as well. Serial exams, time. (5) DVT (deep venous thrombosis) Affected thrombotic vein of extremity: unspecified vein of extremity Chronicity: acute DVT location: lower extremity Laterality: unspecified laterality Qualified Code(s): I82.409 - Acute embolism and thrombosis of unspecified deep veins of unspecified lower extremity
--- NOTE | 2023-04-18 19:28 | Billing Data ---
Date of Service April 18, 2023 Coding Level of Care Code 06824 INT INP/OBS CARE
[2023-04-18] MEDS: PIPERACILLIN/TAZOBACTAM 4.5 GM in DEXTROSE 5% MINI-B 100 ML IV ONE (21:00)
[2023-04-18] MEDS: LACTATED RINGER'S 1,000 ML IV SCH (21:00)
[2023-04-18] MEDS: DOXAZOSIN MESYLATE 1 MG TAB PO SCH (21:08)
[2023-04-18] MEDS: ROSUVASTATIN CALCIUM 20 MG TAB PO SCH (21:08)
--- NOTE | 2023-04-18 21:57 | Electrocardiogram Report ---
Test Reason : Blood Pressure : / mmHG Vent. Rate : 108 BPM Atrial Rate : 000 BPM P-R Int : 000 ms QRS Dur : 076 ms QT Int : 368 ms P-R-T Axes : 000 065 063 degrees QTc Int : 494 ms Sinus tachycardia Low voltage QRS Cannot rule out Inferior infarct , age undetermined Prolonged QT Nonspecific T wave abnormality Abnormal ECG When compared with ECG of 07-APR-2023 20:43, Sinus rhythm has replaced Atrial fibrillation Nonspecific T wave abnormality, improved in Anterior leads Confirmed by Jimmy Lanier ([id number]) on 04/18/2023 9:57:42 PM Referred By: [facility] Confirmed By:Jimmy Lanier
[2023-04-19] MEDS: PIPERACILLIN/TAZOBACTAM 4.5 GM in DEXTROSE 5% MINI-B 100 ML IV SCH (02:15)
[2023-04-19] MEDS: MICONAZOLE NITRATE POWDER 85 GM EXT PRN (06:35)
[2023-04-19 06:43] LABS: Hematocrit (blood only) 38.9 % (42.0-52.0); Hemoglobin 13.4 g/dl (14.0-18.0); Mean Corpuscular Hemoglobin 30.7 pg (25.0-34.0); Mean Corpuscular Hgb Conc 34.4 g/dL (32.0-36.0); Mean Corpuscular Volume 89.2 fL (80.0-100.0); Mean Platelet Volume 10.3 fL (9.4-12.4); Platelet Count 257 K/uL (130-400); RDW Coefficient of Variation 14.8 % (11.5-14.5); Red Blood Count 4.36 M/uL (4.70-6.10); White Blood Count 10.96 K/ul (4.8-10.8)
[2023-04-19 06:49] LABS: INR 4.9 (0.9-1.1); Prothrombin Time 48.9 Seconds (9.0-12.0)
--- NOTE | 2023-04-19 06:52 | Hospitalist Progress Note ---
Date of Service April 19, 2023 Assessment & Plan (1) Elevated WBC count: (2) Elevated lactic acid level: (3) Acute UTI: (4) Confusion: (5) DVT (deep venous thrombosis): (6) Sacral wound: (7) Morbid obesity with BMI of 40.0-44.9, adult: Plan 1) Confusion/Altered Mental Status/Encephalopathy - patient more confused, less oriented (AAO x 1) than baseline according to staff at [facility] - WBC, 15.4, leukocytosis, HR 109 on admission - no fevers, -but elevated lactate, 2.2 <- 3.8, procal 0.08, meets SIRS criteria - Zosyn, 4.5 g, IV, BID --> modify based on Cxs 2) UTI - UA: 3+ blood, 1+ bacteria, WBC 5-10 - Ur Cx gram neg bacilli, sensitivities pending 3) DVT, LLE - Doppler US of LLE revealed extensive DVT in calf area - warfarin, 5 mg, PO, nightly --> held due to INR of 4.9 - goal INR, 2-3 4) sacral superficial pressure ulcer (l. buttock) - rotate patient in bed periodically to relieve pressure - consider consult to Wound Care 5) L5 vertebral fracture noted on previous admission Repeat MRI in 1 month. 6) Paroxysmal atrial fibrillation - stable Continue metoprolol 12.5 mg twice daily, can titrate as needed, - Had RVR of 170 during prior admission 7) CAD With history of PCI Continue metoprolol, aspirin, rosuvastatin Last echo with EF 55-59% 2018 8) Obstructive sleep apnea: CPAP nightly 9) Diabetes (T2DM): Last A1c 7.2% Consider weight-based basal bolus after Glu tomorrow DM2/heart healthy diet Admission and Anticipated Discharge Date Admission Date: April 18, 2023 Supervising Physician Co-Signing Physician Notes I personally examined the patient and verified all siddiqi points of history and exam, discussed case, and agree with decision making with Dr Lemos still seems a bit confused, but more focused in his confusion. Eating and the food is going down well. Denies pain. He does not recall when his Estevez catheter was placed, but does not recall any pressing reason why he would need it chronicallyagain he really does not have great recall of events right now but at least does not seem to have any recollection of a pressing reason. Lisa soto noted, in general he is awake pleasant does seem to be quite confused no distress. He is sitting up mostly, slightly sideways, in bed eating dinner without difficulty. Estevez draining yellow urine. No focal neurodeficits. deliriumdifferential broad: Torres does have a white count of 15, but no other clear signs or symptoms of infection. Urine is showing gram-negative rodsgiven the white count of 15, obligated to treat. Given that I cannot find any pressing reason for him to require catheter (on chart review I do not see any chronic urinary retention/neurogenic bladder/severe BPH/urology notes suggesting the need for ongoing Estevez drainage) we will give a voiding trial tomorrowsince obviously getting rid of the catheter if it is not necessary could help reduce risk of infection and simply reduce risk of delirium by having [address] metabolicunclear how well he has been doing eating and drinking, and certainly dehydration is a very common cause for metabolic driven delirium. was given gentle IV fluids, now improving p.o. intake, follow basic metabolic panel. Hilary had been in the hospital for a fairly prolonged stay seeking disposition, and then return to his personal skilled nursing. In discussion with resident physician who had him at the end of last admission as well, he sounded to have been getting somewhat delirious even prior to dischargegiven the long arc of the delirium once it starts, it certainly possible that we are seeing ongoing delirium from his previous prolonged hospital stay toxicsame as above in discussions with resident physician, he apparently did require 1 dose of Zyprexa prior to discharge, which, obviously would not still have any significant half-life in his body, but could have altered sensorium prior to shifting environment is contributing to the delirium as well. Serial exams, time. Subjective Patient is a 72-year-old gentleman history of atrial fibrillation on digoxin and warfarin presenting here today via ambulance from [facility] where he was recently discharged to from this hospital. Patient is a history of A-fib as well as dementia. According to EMS this is their second visit there tonight as he was found on the floor earlier. Slid to the ground. Denies significant pain complaints. Denies headache, chest pain, shortness of breath. EMS reports patient was hallucinating and possibly seeing his brother in the room at the facility. Facility staff evidently reported that he was more confused than his baseline normal. Does have increased swelling of the lower legs as well as a chronic indwelling Estevez. No fever by EMS. Brought here for further evaluation given the confusion and sliding out of bed early this morning. I saw the patient this morning and he is AAO x 1 as he was upon discharge a few days ago, with noticeable addition of slurred speech as compared to prior d/c. Patient does not endorse any pain anywhere upon ROS but is sensitive to palpation for pain in LLE, abdominal area in particular, and to some extent to pain in sacral area. Patient cooperative, conversant, somewhat hard of hearing, at times seems to persevere on independent subject matter. Review of Systems Constitutional: no fever, no chills and no fatigue Respiratory: no cough, no chest congestion and no dyspnea Cardiovascular: no chest pain and no palpitations Gastrointestinal: + fecal incontinence (1 episode this mor federica); no nausea, no vomiting and no diarrhea/loose stools Genitourinary: no dysuria Integumentary: + skin ulcer (l. buttock) and + erythema (of both lower extremities, recently treated, resolved cellulitis) Neurologic: no tingling and no numbness Physical Exam Constitutional: WD/WN, vitals as above Respiratory: normal respiratory effort, lungs clear to auscultation Cardiovascular: RRR, no murmur, no edema Gastrointestinal (Abdomen): Percussion/Palpation: + abdomen tender (diffuse abdominal pain (5/10) but only on palpation); abdomen not rigid Musculoskeletal: Extremities: + lower extremity abnormal to inspection (l. calf, thigh, popliteal fossa tender (8/10) upon palpation) Left; full ROM of lower extremities Skin: + ulcer (superficial pressure ulcer on l . buttock) Psychiatric: Orientation: alert, oriented to person and oriented to time; + not oriented to place Results & Data Results & Data Vital Signs (Past 12 Hours) Vital Signs Temp Pulse Pulse Resp BP Pulse Ox O2 Del Method 04/19/23 06:21 84 92 Room Air 04/18/23 20:45 Room Air 04/18/23 20:07 36.7 C 91 H 18 106/62 93 Room Air Resident Activity Tracking Resident Involvement: Resident Care Provided Care Provided: Adult Hospital Medicine (5) DVT (deep venous thrombosis) Affected thrombotic vein of extremity: unspecified vein of extremity Chronicity: acute DVT location: lower extremity Laterality: unspecified laterality Qualified Code(s): I82.409 - Acute embolism and thrombosis of unspecified deep veins of unspecified lower extremity
[2023-04-19 06:54] LABS: Albumin Level 3.1 gm/dl (3.4-5.0); BUN Creatinine Ratio 16.2 (10-20); Bilirubin,Total 0.8 mg/dl (0.2-1.0); C Reactive Protein 4.08 mg/dl (0-0.5); Calcium 8.4 mg/dl (8.6-10.3); Creatinine Clr Calc Pharmacy 111.6 ml/min; Est GFR (African American) 106.1 ml/min; Est GFR (Non-African American) 91.5 ml/min; Potassium 3.4 mmol/L (3.5-5.1); Total Protein 6.1 gm/dl (6.0-8.3)
--- NOTE | 2023-04-19 19:01 | Billing Data ---
Date of Service April 19, 2023 Coding Level of Care Code 55570 SUB INP/OBS CARE MIN
[2023-04-20 07:02] LABS: INR 3.7 (0.9-1.1); Prothrombin Time 37.7 Seconds (9.0-12.0)
--- NOTE | 2023-04-20 07:22 | Hospitalist Progress Note ---
Date of Service April 20, 2023 Assessment & Plan (1) Elevated WBC count: (2) Elevated lactic acid level: (3) Acute UTI: (4) Confusion: (5) DVT (deep venous thrombosis): (6) Sacral wound: (7) Morbid obesity with BMI of 40.0-44.9, adult: Plan 1) Confusion/Altered Mental Status/Encephalopathy - patient more confused, less oriented (AAO x 1) than baseline according to staff at [facility] - WBC, 15.4, leukocytosis, HR 109 on admission - no fevers, -but elevated lactate, 2.2 <- 3.8, procal 0.08, meets SIRS criteria - Initially on Zosyn, 4.5 g, IV, BID --> modified based on Cxs to cefdinir 2) UTI - UA: 3+ blood, 1+ bacteria, WBC 5-10 - Ur Cx gram neg bacilli, sensitivities in, should choose oral, cefdinir, 300 mg, BID, PO 3) DVT, LLE - Doppler US of LLE revealed extensive DVT in calf area - warfarin, 5 mg, PO, nightly --> continue to hold due to INR of 3.7 - goal INR, 2-3 4) sacral superficial pressure ulcer (l. buttock) - rotate patient in bed periodically to relieve pressure - consider consult to Wound Care 5) L5 vertebral fracture noted on previous admission Repeat MRI in 1 month. 6) Paroxysmal atrial fibrillation - stable Continue metoprolol 12.5 mg twice daily, can titrate as needed, - Had RVR of 170 during prior admission 7) CAD With history of PCI Continue metoprolol, aspirin, rosuvastatin Last echo with EF 55-59% 2018 8) Obstructive sleep apnea: CPAP nightly 9) Diabetes (T2DM): Last A1c 7.2% Consider weight-based basal bolus after Glu tomorrow DM2/heart healthy diet Admission and Anticipated Discharge Date Admission Date: April 18, 2023 Supervising Physician Co-Signing Physician Notes I personally examined the patient and verified all siddiqi points of history and exam, discussed case, and agree with decision making with Dr Lemos no new complaints today. Vitals noted, in general he is awake and alert pleasant no distress. Breathing unlabored no accessory muscle use good effort. Skin shows no rashes no pallor or icterus. Neuro without focal deficits. deliriumdifferential broad: Infectioushe did have a white count of 15, but no other clear signs or symptoms of infection. Urine is showing gram-negative rodsgiven the white count of 15, obligated to treat. Fortunately pansensitive Klebsiellaeasy to treat. Given that I cannot find any pressing reason for him to require catheter (on chart review I do not see any chronic urinary retention/neurogenic bladder/severe BPH/urology notes suggesting the need for ongoing Estevez drainage) Voiding trial todaysince obviously getting rid of the catheter if it is not necessary could help reduce risk of infection and simply reduce risk of delirium by having [address] metabolicunclear how well he has been doing eating and drinking, and certainly dehydration is a very common cause for metabolic driven delirium. was given gentle IV fluids, now improving p.o. intake, follow basic metabolic panel. Environmentalkp had been in the hospital for a fairly prolonged stay seeking disposition, and then return to his personal intermediate. In discussion with ilzzy zamarripa physician who had him at the end of last admission as well, he sounded to have been getting somewhat delirious even prior to dischargegiven the long arc of the delirium once it starts, it certainly possible that we are seeing ongoing delirium from his previous prolonged hospital stay toxicsame as above in discussions with resident physician, he apparently did require 1 dose of Zyprexa prior to discharge, which, obviously would not still have any significant half-life in his body, but could have altered sensorium prior to shifting environment is contributing to the delirium as well. Serial exams, time. case management working on discharge plan Subjective Patient is a 72-year-old gentleman history of atrial fibrillation on digoxin and warfarin presenting here today via ambulance from [facility] where he was recently discharged to from this hospital. Patient is a history of A-fib as well as dementia. According to EMS this is their second visit there tonight as he was found on the floor earlier. Slid to the ground. Denies significant pain complaints. Denies headache, chest pain, shortness of breath. EMS reports patient was hallucinating and possibly seeing his brother in the room at the facility. Facility staff evidently reported that he was more confused than his baseline normal. Does have increased swelling of the lower legs as well as a chronic indwelling Estevez. No fever by EMS. Brought here for further evaluation given the confusion and sliding out of bed early this morning. I saw the patient this morning and he is AAO x 2/2.5. Patient still is not aware of the state or city he's in. Patient does not endorse any pain anywhere upon ROS but is sensitive to palpation for pain in LLE, abdominal area in particular, and to some extent to pain in sacral area. Patient cooperative, conversant, somewhat hard of hearing, at times seems to persevere on independent subject matter, but overall is the most aware since re-admission. Review of Systems Constitutional: no fever, no chills and no fatigue Respiratory: no cough, no chest congestion and no dyspnea Cardiovascular: no chest pain and no palpitations Gastrointestinal: + fecal incontinence (1 episode this mor federica); no nausea, no vomiting and no diarrhea/loose stools Genitourinary: no dysuria Integumentary: + skin ulcer (l. buttock) and + erythema (of both lower extremities, recently treated, resolved cellulitis) Neurologic: no tingling and no numbness Physical Exam Constitutional: WD/WN, vitals as above Respiratory: normal respiratory effort, lungs clear to auscultation Cardiovascular: RRR, no murmur, no edema Gastrointestinal (Abdomen): Percussion/Palpation: + abdomen tender (diffuse abdominal pain (5/10) but only on palpation); abdomen not rigid Musculoskeletal: Extremities: + lower extremity abnormal to inspection (l. ca lf, thigh, popliteal fossa tender (8/10) upon palpation) Left; full ROM of lower extremities Skin: + ulcer (superficial pressure ulcer on l . buttock) Psychiatric: Orientation: alert, oriented to person and oriented to time; + not oriented to place Results & Data Results & Data Vital Signs (Past 12 Hours) Vital Signs Temp Pulse Resp BP Pulse Ox O2 Del Method 04/20/23 07:14 36.5 C 76 16 121/73 94 Room Air 04/19/23 19:39 36.6 C 89 20 104/64 96 Room Air (5) DVT (deep venous thrombosis) Affected thrombotic vein of extremity: unspecified vein of extremity Chronicity: acute DVT location: lower extremity Laterality: unspecified laterality Qualified Code(s): I82.409 - Acute embolism and thrombosis of unspecified deep veins of unspecified lower extremity
[2023-04-20] MEDS: CEFDINIR 300 MG CAP PO SCH (08:15)
--- NOTE | 2023-04-20 16:13 | Billing Data ---
Date of Service April 20, 2023 Coding Level of Care Code 41544 SUB INP/OBS CARE
--- OUTSIDE RECORDS SUMMARY | 2023-04-20 20:28 | External Medical Summary | Summary of Care ---
Author Name Unknown Organization [facility] Address [address] [facility] [place] [address] Phone [phone] Care Team Providers Care Tearer Name Role Phone Julieth Hargrove PA-C Primary Care Provide r Reason for Visit * Reason Comments Dosage Adjustment Via Phone (anticoag Cl inic) Encounter Details Date Type Department Care Team (Latest Contact Info) Description 04/19/2023 5:10 PM EST Anticoagulation Pharmacy, [facility] [address] [place] [address] [facility] [address] [place] [address] Persistent atrial fibrillation (HCC)* Allergies No known active allergiesdocumented as of this encounter (statuses as of 04/19/2023) Medications Medication Sig Dispensed Refills Start Date [...] Nasal SolutionIndications: Other chronic sinusitis Administer 1 [place] into nostril in the morning and 1 [place] before bedtime. 30 mL 12 07/13/2016 Active [...] Oral Tablet (Cardura)Indications :Coronary artery disease involving nome coronary artery of nome heart without angina pectoris TAKE 1 TABLET [...] as of this encounter (statuses as of 04/19/2023) Active Problems Problem Noted Date Diagnosed Date [...] disorder 01/22/2014 Coronary artery disease invo lving nome coronary artery of nome heart without angina pectoris 02/24/2012 Dyslipidemia, goal [...] as of this encounter (statuses as of 04/19/2023) Resolved Problems Problem Noted Date Diagnosed Date [...] as of this encounter (statuses as of 04/19/2023) Immunizations Name Administration Dates Next Due Hepatitis [...] Progress Notes * Suzanne Vazquez RPh - 04/19/2023 9:08 AM EST Patient Phone Numbers Patient discharged from [facility] to home. Message 2nd left for patient to return call to discuss warfarin management. INR of 2.7 on 9 and 5/10 mg on alternating days were the discharge instructions perdischarge summary. Follow up in 3 day unless contacted sooner. Suzanne Vazquez, Pharm D, BCACP Clinical Pharmacist 04/19/2023, 9:15 AM documented in this encounter Plan of Treatment Upcoming Encounters Date Type Department Care Team (Late st Contact Info) Description 04/22/2023 5:10 PM EST Anticoagulation Pharmacy, [facility] [address] [facility] [place] [address] [facility] [address] [place] [address] Health Maintenance Due Date Last Done Comments [...] Hepatitis B Completed 10/14/2016, 030 11/2016, 04/15/2016 Zoster Vaccines Completed 12/28/2018, 09/05, [...] fibrillation documented in this encounter Care Teams Tearer Relationship Specialty Start Date End Date Julieth Hargrove PA-C [address] [place] [address], [place] [address] PCP - General Physician Engine Designer 03/18/21 documented as of this encounter
--- OUTSIDE RECORDS SUMMARY | 2023-04-20 20:28 | External Medical Summary | Summary of Care ---
Author Name Unknown Organization [facility] Address [address] [facility] [place] [address] Phone [phone] Care Team Providers Care Pasta Maker Name Role Phone Julieth Hargrove PA-C Primary Care Provide r Reason for Visit * Reason Comments Dosage Adjustment Via Phone (anticoag Cl inic) Encounter Details Date Type Department Care Team (Latest Contact Info) Description 04/18/2023 5:10 PM EST Anticoagulation Pharmacy, [facility] [address] [place] [address] [facility] [address] [place] [address] Persistent atrial fibrillation (HCC)* Allergies No known active allergiesdocumented as of this encounter (statuses as of 04/18/2023) Medications Medication Sig Dispensed Refills Start Date [...] Nasal SolutionIndications: Other chronic sinusitis Administer 1 [place] into nostril in the morning and 1 [place] before bedtime. 30 mL 12 07/13/2016 Active [...] Oral Tablet (Cardura)Indications :Coronary artery disease involving [place] coronary artery of [place] heart without angina pectoris TAKE 1 TABLET [...] as of this encounter (statuses as of 04/18/2023) Active Problems Problem Noted Date Diagnosed Date [...] disorder 01/22/2014 Coronary artery disease invo lving [place] coronary artery of [place] heart without angina pectoris 02/24/2012 Dyslipidemia, goal LDL below 70 02/18/2009 Overview: Per Lipid Taxonomy. Gastroesophageal reflux disease without esophagi tis 01/14/2009 Chronic rhinitis 01/14/2009 Type 2 diabetes mellitus wit h hemoglobin A1c goal of less than 7.0% 01/02/2009 Overview: Per Diabetes Taxonomy. ICD-10 update of inactive term OLD MYOCARDIAL INFARCT 09/26/2008 Overview: Modified by Acute CT Protocol #5. 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 MAMI (obstructive sleep apnea) 03/07/1994 Overview: 10/2012 -- auto CPAP 16 cwp 06/26/12 -- changed from [employer] to T&B 08/06/11 -- CPAP auto 13-16 cwp 2007 - REMstar Plus CPAP 15 cwp T&B Medical ACEI/ARB contraindicated documented as of this encounter (statuses as of 04/18/2023) Resolved Problems Problem Noted Date Diagnosed Date [...] as of this encounter (statuses as of 04/18/2023) Immunizations Name Administration Dates Next Due Hepatitis [...] Progress Notes * Suzanne Vazquez RPh - 04/18/2023 10:53 AM EST Patient Phone Numbers Patient discharged from [facility] to home. Message left for patient to return call to discuss warfarin management. INR of 2.7 on 2/9 and 5/10 mg on alternating days were the discharge instructions per discharge summary. Follow up in 1 day unless contacted sooner. Suzanne Vazquez, Pharm D, BCACP Clinical Pharmacist 04/18/2023, 10:56 AM documented in this encounter Plan of Treatment Upcoming Encounters Date Type Department Care Team (Late st Contact Info) Description 04/19/2023 5:10 PM EST Anticoagulation Pharmacy, [facility] [address] [facility] [place] [address] [facility] [address] [facility] [place] [address] Health Maintenance Due Date Last Done Comments [...] fibrillation documented in this encounter Care Teams Pasta Maker Relationship Specialty Start Date End Date Julieth Hargrove PA-C [address] [place] [address], [place] [address] PCP - General Physician Microfiche Camera Operator 03/18/21 documented as of this encounter
[2023-04-21 07:24] LABS: Basophils # (auto) 0.06 K/uL (0.00-0.20); Basophils % (auto) 0.6 %; Eosinophils # (auto) 0.36 K/uL (0.00-0.50); Eosinophils % (auto) 3.8 %; Hematocrit (blood only) 41.5 % (42.0-52.0); Hemoglobin 14.4 g/dl (14.0-18.0); Immature Granulocytes # (auto) 0.06 K/uL (0.01-0.20); Immature Granulocytes % (auto) 0.6 %; Lymphocytes # (auto) 1.06 K/uL (1.20-3.40); Lymphocytes % (auto) 11.2 %; Mean Corpuscular Hemoglobin 30.8 pg (25.0-34.0); Mean Corpuscular Hgb Conc 34.7 g/dL (32.0-36.0); Mean Corpuscular Volume 88.7 fL (80.0-100.0); Mean Platelet Volume 10.5 fL (9.4-12.4); Monocytes # (auto) 0.91 K/uL (0.11-0.59); Monocytes % (auto) 9.6 %; Neutrophils # (auto) 7.02 K/uL (1.40-6.50); Neutrophils % (auto) 74.2 %; Platelet Count 256 K/uL (130-400); RDW Coefficient of Variation 14.3 % (11.5-14.5); RDW Standard Deviation 46.3 fL (36.4-46.3); Red Blood Count 4.68 M/uL (4.70-6.10); White Blood Count 9.47 K/ul (4.8-10.8)
[2023-04-21 07:48] LABS: BUN Creatinine Ratio 14.1 (10-20); Calcium 8.6 mg/dl (8.6-10.3); Creatinine Clr Calc Pharmacy 129.1 ml/min; Est GFR (African American) 112.6 ml/min; Est GFR (Non-African American) 97.1 ml/min; Potassium 3.5 mmol/L (3.5-5.1)
[2023-04-21 08:07] LABS: INR 2.6 (0.9-1.1); Prothrombin Time 26.8 Seconds (9.0-12.0)
--- NOTE | 2023-04-21 11:28 | Discharge Summary ---
Date of Service April 21, 2023 Admission HPI Per Admitting Provider Patient is a 72-year-old gentleman history of atrial fibrillation on digoxin and warfarin presenting here today via ambulance from [facility] where he was recently discharged to from this hospital. Patient is a history of A-fib as well as dementia. According to EMS this is their second visit there tonight as he was found on the floor earlier. Slid to the ground. Denies significant pain complaints. Denies headache, chest pain, shortness of breath. EMS reports patient was hallucinating and possibly seeing his brother in the room at the facility. Facility staff evidently reported that he was more confused than his baseline normal. Does have increased swelling of the lower legs as well as a chronic indwelling Foote. No fever by EMS. Brought here for further evaluation given the confusion and sliding out of bed early this morning. I saw the patient this morning and he is AAO x 1 as he was upon discharge a few days ago, with noticeable addition of slurred speech as compared to prior d/c. Patient does not endorse any pain anywhere upon ROS but is sensitive to palpation for pain in LLE, abdominal area in particular, and to some extent to pain in sacral area. Patient cooperative, conversant, somewhat hard of hearing, at times seems to persevere on independent subject matter. Admission Exam Per Admitting Provider 1) Elevated WBC count: (2) Elevated lactic acid level: (3) Acute UTI: (4) Confusion: (5) DVT (deep venous thrombosis): (6) Sacral wound: (7) Morbid obesity with BMI of 40.0-44.9, adult: Plan 1) Confusion/Altered Mental Status/Encephalopathy - patient more confused, less oriented (AAO x 1) than baseline according to staff at [facility] - leukocytosis, HR 109 on admission --> meets SIRS criteria - no fevers, procalcitonin 0.08, but elevated lactate, 3.8 - WBC, 9.47 <-- 15.38, improved - lactate, 2.2 <-- 3.8 - Zosyn, 4.5 g, IV, BID during hospital stay, discontinued --> modified based on Cxs 2) UTI - UA: 3+ blood, 1+ bacteria, WBC 5-10 - Ur Cx: Klebsiella pneumoniae, sensitive to a variety of antibiotics - Cefdinir, 300 mg, PO, BID for 9 more days - Foote catheter was removed, should decrease risk for UTIs 3) DVT, LLE - Doppler US of LLE revealed - warfarin, 5 mg, PO, nightly - goal INR, 2-3, but INR elevated since admission (3.7 - 4.9) until today, INR 2.6 - restart warfarin, 5 mg, PO, daily as outpt --> will need to monitor INR as outpt 4) sacral superficial pressure ulcer (l. buttock) - rotate patient in bed periodically to relieve pressure - consider consult to Wound Care 5) L5 vertebral fracture noted on previous admission Repeat MRI in 1 month. 6) Paroxysmal atrial fibrillation - stable Continue metoprolol 12.5 mg twice daily, can titrate as needed, - Had RVR of 170 during prior admission 7) CAD With history of PCI Continue metoprolol, aspirin, rosuvastatin Last echo with EF 55-59% 2018 8) Obstructive sleep apnea: CPAP nightly 9) Diabetes (T2DM): Last A1c 7.2% Consider weight-based basal bolus after Glu tomorrow DM2/heart healthy diet Principal Diagnosis Encephalopathy, UTI Discharge Exam Constitutional WD/WN, vitals as above Respiratory normal respiratory effort, lungs clear to auscultation Cardiovascular RRR, no murmur, no edema Gastrointestinal (Abdomen) Percussion/Palpation: + abdomen tender (diffuse abdominal pain (5/10) but only on palpation); abdomen not rigid Musculoskeletal Extremities: + lower extremity abnormal to inspection (l. calf, thigh, popliteal fossa tender (8/10) upon palpation) Left; full ROM of lower extremities Skin + ulcer (superficial pressure ulcer on l. buttock) Psychiatric Orientation: alert, oriented to person and oriented to time; + not oriented to place Discharge Data Allergies Allergy/AdvReac Type Severity Reaction Status Date / Time No Known Allergies Allergy Verified 03/26/23 17:37 Consultations 04/18/23 06:17 ED Decision to Admit Stat Ordered Studies 04/18/23 03:22 CT head/brain wo con Stat 04/18/23 11:35 US venous doppler LE LT Routine Hospital Course (1) Elevated WBC count: (2) Elevated lactic acid level: (3) Acute UTI: (4) Confusion: (5) DVT (deep venous thrombosis): (6) Sacral wound: (7) Morbid obesity with BMI of 40.0-44.9, adult: Plan 1) Confusion/Altered Mental Status/Encephalopathy - patient more confused, less oriented (AAO x 1) than baseline according to staff at [facility] - WBC, 15.4, leukocytosis, HR 109 on admission - no fevers, -but elevated lactate, 2.2 <- 3.8, procal 0.08, meets SIRS criteria - Initially on Zosyn, 4.5 g, IV, BID --> modified based on Cxs to cefdinir 2) UTI - UA: 3+ blood, 1+ bacteria, WBC 5-10 - Ur Cx gram neg bacilli, sensitivities in, should choose oral, cefdinir, 300 mg, BID, PO 3) DVT, LLE - Doppler US of LLE revealed extensive DVT in calf area - warfarin, 5 mg, PO, nightly --> continue to hold due to INR of 3.7 - goal INR, 2-3 4) sacral superficial pressure ulcer (l. buttock) - rotate patient in bed periodically to relieve pressure - consider consult to Wound Care 5) L5 vertebral fracture noted on previous admission Repeat MRI in 1 month. 6) Paroxysmal atrial fibrillation - stable Continue metoprolol 12.5 mg twice daily, can titrate as needed, - Had RVR of 170 during prior admission 7) CAD With history of PCI Continue metoprolol, aspirin, rosuvastatin Last echo with EF 55-59% 2018 8) Obstructive sleep apnea: CPAP nightly 9) Diabetes (T2DM): Last A1c 7.2% Consider weight-based basal bolus after Glu tomorrow DM2/heart healthy diet Total Time Total Time Spent Total Time Spent (In Minutes): see attending attestation Discharge Plan Discharge Items Patient Disposition: Transfer Residential Fac Reason For Visit: CONFUSION Discharge Diagnosis: metabolic encephalopathy, UTI Activity: Resume your previous activity Non-emergency contact: Primary Care Provider Call non-emergency contact if: you have any medication questions and you have a fever Follow-up/Referrals: Ta Chi DO [Primary Care Provider] - Diet: Carb Consistent or DM2 Addtl Attending Provider Instructions: You were admitted to the hospital for metabolic encephalopathy, confusion, and a urinary tract intervention. You were treated with Zosyn, cefdinir, and his home medications. A discharge summary will be sent to your primary care physician to ensure continuity of care. Please bring this discharge summary with you to your next office appointment so that your provider can review it at that time. Follow-up appointments: We have requested a follow-up appointment with your primary care physician within one week of discharge. Please call their office if you do not hear from them. Keep all your follow-up appointments as already scheduled. If you cannot make an appointment, notify your provider. Medications: Your medication list has been reviewed and reconciled upon discharge to ensure accuracy and continuity of care. An updated list of all your medications is included with your hospital discharge paperwork. Please review this list closely, and make note of any changes. We sent a new medication called Cefdenir to your pharmacy. Take Cefdinir 300 mg/one tablet, twice a day, for 9 more days. Take your medications as instructed; do not skip a dose of your medicines. Make sure all of your doctors know every medicine you are taking (including stnl-tue-mxgacxk medicines, vitamins, and supplements). Call your primary care provider before taking any new medicines (including pxha-zay-ppkocmr medicines, vitamins, and supplements), because some of these may interact with your current medications, or may make your symptoms worse. Tell your primary care provider if you cannot afford your medications. CONTACT YOUR PRIMARY CARE PROVIDER if you experience any of the following: confusion, increased disorientation from patient's baseline burning with urination, increased urinary frequency Difficulty following your treatment plan, or difficulty taking medications CALL 911 OR GO TO THE EMERGENCY DEPARTMENT if you experience any of the following: Sudden, severe abdominal pain or nausea/vomiting Severe chest pain, or chest pain that radiates (moves) to your jaw or arm Sudden, severe shortness of breath or difficulty breathing Thank you for allowing us to participate in your care Pending Studies at Discharge: No Stand-Alone Forms: My [facility] Skilled Items Patient informed of condition?: Yes DNR: No Discharge Level of Care: Skilled Communicable Disease: No Discharge Prognosis: Stable Lines: None Urinary Catheter: No Medications and DC Order Prescriptions: New cefdinir 300 mg capsule 300 mg PO BID 9 Days Qty: 18 0RF Continued aspirin 81 mg Tablet,Delayed Release (Dr/Ec) 81 mg PO DAILY rosuvastatin 20 mg Tablet 20 mg PO QPM folic acid 1 mg Tablet 1 mg PO BID doxazosin [Cardura] 1 mg Tablet 1 mg PO HS nitroglycerin [Nitrostat] 0.4 mg Tablet, Sublingual 0.4 mg sublingual .EVERY 5 MIN PRN (Reason: Chest Pain) Rx Instructions: x3 doses q 5mins for chest pain cholecalciferol (vitamin D3) [Vitamin D3] 50 mcg (2,000 unit) Capsule 50 mcg PO DAILY warfarin 5 mg tablet 5 mg PO HS pantoprazole 40 mg tablet,delayed release (DR/EC) 40 mg PO DAILY metoprolol tartrate 25 mg Tablet 12.5 mg PO BID Qty: 0 0RF melatonin 3 mg Tablet,Disintegrating 3 mg PO HS potassium chloride 10 mEq tablet,ER particles/crystals 10 meq PO BID sennosides [Senokot] 8.6 mg tablet 17.2 mg PO DAILY furosemide [Lasix] 40 mg tablet 40 mg PO BID Rx Instructions: daily at 0800 and 2000 Jardiance 25 mg tablet 25 mg PO DAILY multivitamin [Daily-Lala] Tablet 1 tab PO DAILY coQ10 (ubiquinol) 200 mg Capsule 400 mg PO DAILY Rx Instructions: using softgel acetaminophen 325 mg Tablet 650 mg PO Q6 MDD 3g PRN (Reason: Fever Or Pain) polyethylene glycol 3350 [ClearLax] 17 gram Powder In Packet 17 g PO DAILY Discharge Orders: Discharge Order (Routine); Ordered 04/21/23 Ordered By: Kristopher Lemos Admission Data Admit Date/Time: 04/20/23 11:55 Attending Provider: Mohsne Valderrama Admit Provider: Kristopher Lemos Primary Care Provider: Ta Chi Other Providers: Mohsen Valderrama Supervising Physician Co-Signing Physician Notes I personally examined the patient and verified all siddiqi points of history and exam, discussed case, and agree with decision making with Dr Lemos no new complaints today. voiding well. Vitals noted, in general he is awake and alert pleasant no distress. Breathing unlabored no accessory muscle use good effort. Skin shows no rashes no pallor or icterus. Neuro without focal deficits. delirium/metabolic encephalopathy present on admissiondifferential broad: Infectioushe did SIRS/sepsis on admission given WBC/HR and (+) urine culture. Urine is showing gram-negative rodsgiven the SIRS on admission - while this potentially could be asymptomatic bacteruria, obligated to treat as catheter associated UTI w sepsis POA. Fortunately pansensitive Klebsiellaeasy to treat. Given that I cannot find any pressing reason for him to require catheter (on chart review I do not see any chronic urinary retention/neurogenic bladder/severe BPH/urology notes suggesting the need for ongoing Foote drainage) we dc'd foote and today he is doing fine metabolicunclear how well he has been doing eating and drinking, and certainly dehydration is a very common cause for metabolic driven delirium. was given gentle IV fluids, now improving p.o. intake, follow basic metabolic panel. Hilary had been in the hospital for a fairly prolonged stay seeking disposition, and then return to his personal [facility]. In discussion with resident physician who had him at the end of last admission as well, he sounded to have been getting somewhat delirious even prior to dischargegiven the long arc of the delirium once it starts, it certainly possible that we are seeing on going delirium from his previous prolonged hospital stay toxicsame as above in discussions with resident physician, he apparently did require 1 dose of Zyprexa prior to discharge, which, obviously would not still have any significant half-life in his body, but could have altered sensorium prior to shifting environment is contributing to the delirium as well. improving safe for return to [facility] if another UTI - would then consider stopping Jardiance
--- NOTE | 2023-04-21 12:58 | Billing Data ---
Date of Service April 21, 2023 Coding Level of Care Code 25880 IN/OBS DISCH 30 MIN/LESS
[2023-04-21] MEDS: WARFARIN SOD 6 MG TAB PO SCH (16:28)
--- NOTE | 2023-04-21 18:20 | Hospitalist Progress Note ---
Date of Service April 21, 2023 Assessment & Plan (1) Elevated WBC count: (2) Elevated lactic acid level: (3) Acute UTI: (4) Confusion: (5) DVT (deep venous thrombosis): (6) Sacral wound: (7) Morbid obesity with BMI of 40.0-44.9, adult: Plan 1) Confusion/Altered Mental Status/Encephalopathy - patient more confused, less oriented (AAO x 1) than baseline according to staff at [facility] - WBC, 15.4, leukocytosis, HR 109 on admission - no fevers, -but elevated lactate, 2.2 <- 3.8, procal 0.08, meets SIRS criteria - Initially on Zosyn, 4.5 g, IV, BID --> modified based on Cxs to cefdinir 2) UTI - UA: 3+ blood, 1+ bacteria, WBC 5-10 - Ur Cx gram neg bacilli, sensitivities in, chose oral, cefdinir, 300 mg, BID, PO 3) DVT, LLE - Doppler US of LLE revealed extensive DVT in calf area - warfarin, 5 mg, PO, nightly --> restarted as patient's INR now 2.6 - goal INR, 2-3 4) sacral superficial pressure ulcer (l. buttock) - rotate patient in bed periodically to relieve pressure - consider consult to Wound Care 5) L5 vertebral fracture noted on previous admission Repeat MRI in 1 month. 6) Paroxysmal atrial fibrillation - stable Continue metoprolol 12.5 mg twice daily, can titrate as needed, - Had RVR of 170 during prior admission 7) CAD With history of PCI Continue metoprolol, aspirin, rosuvastatin Last echo with EF 55-59% 2018 8) Obstructive sleep apnea: CPAP nightly 9) Diabetes (T2DM): Last A1c 7.2% Consider weight-based basal bolus after Glu tomorrow DM2/heart healthy diet Waiting for procurement of transport for patient back to [facility], likely tomorrow Admission and Anticipated Discharge Date Admission Date: April 20, 2023 Subjective Patient is a 72-year-old gentleman history of atrial fibrillation on digoxin and warfarin presenting here today via ambulance from [facility] where he was recently discharged to from this hospital. Patient is a history of A-fib as well as dementia. According to EMS this is their second visit there tonight as he was found on the floor earlier. Slid to the ground. Denies significant pain complaints. Denies headache, chest pain, shortness of breath. EMS reports patient was hallucinating and possibly seeing his brother in the room at the facility. Facility staff evidently reported that he was more confused than his baseline normal. Does have increased swelling of the lower legs as well as a chronic indwelling Estevez. No fever by EMS. Brought here for further evaluation given the confusion and sliding out of bed early this morning. I saw the patient this morning and he is AAO x 2/2.5. Patient aware of being in hospital and in [place], [place], knows the year but not the month. Patient does not endorse any pain anywhere upon ROS but is sensitive to palpation for pain in LLE, abdominal area in particular, and to some extent to pain in sacral area. Patient cooperative, conversant, somewhat hard of hearing, at times seems to persevere on independent subject matter, but overall is the most aware since re-admission. Review of Systems Constitutional: no fever, no chills and no fatigue Respiratory: no cough, no chest congestion and no dyspnea Cardiovascular: no chest pain and no palpitations Gastrointestinal: + fecal incontinence (1 episode this mor federica); no nausea, no vomiting and no diarrhea/loose stools Genitourinary: no dysuria Integumentary: + skin ulcer (l. buttock) and + erythema (of both lower extremities, recently treated, resolved cellulitis) Neurologic: no tingling and no numbness Physical Exam Constitutional: WD/WN, vitals as above Respiratory: normal respiratory effort, lungs clear to auscultation Cardiovascular: RRR, no murmur, no edema Gastrointestinal (Abdomen): Percussion/Palpation: + abdomen tender (diffuse abdominal pain (5/10) but only on palpation); abdomen not rigid Musculoskeletal: Extremities: + lower extremity abnormal to inspection (l. calf, thigh, popliteal fossa tender (8/10) upon palpation) Left; full ROM of lower extremities Skin: + ulcer (superficial pressure ulcer on l . buttock) Psychiatric: Orientation: alert, oriented to person and oriented to time; + not oriented to place Results & Data Results & Data Vital Signs (Past 12 Hours) Vital Signs Temp Pulse Resp BP Pulse Ox O2 Del Method 04/21/23 14:28 36.4 C L 85 16 95/60 L 95 Room Air 04/21/23 07:57 Room Air 04/21/23 07:23 36.4 C L 81 16 107/69 94 Room Air (5) DVT (deep venous thrombosis) Affected thrombotic vein of extremity: unspecified vein of extremity Chronicity: acute DVT location: lower extremity Laterality: unspecified laterality Qualified Code(s): I82.409 - Acute embolism and thrombosis of unspecified deep veins of unspecified lower extremity
[2023-04-21] MEDS: MELATONIN 3 MG TAB PO PRN (20:01)
[2023-04-22 09:03] LABS: INR 2.5 (0.9-1.1); Prothrombin Time 25.7 Seconds (9.0-12.0)
--- NOTE | 2023-04-22 18:40 | Discharge Summary ---
Date of Service April 22, 2023 Admission HPI Per Admitting Provider Patient is a 72-year-old gentleman history of atrial fibrillation on digoxin and warfarin presenting here today via ambulance from [facility] where he was recently discharged to from this hospital. Patient is a history of A-fib as well as dementia. According to EMS this is their second visit there tonight as he was found on the floor earlier. Slid to the ground. Denies significant pain complaints. Denies headache, chest pain, shortness of breath. EMS reports patient was hallucinating and possibly seeing his brother in the room at the facility. Facility staff evidently reported that he was more confused than his baseline normal. Does have increased swelling of the lower legs as well as a chronic indwelling Foote. No fever by EMS. Brought here for further evaluation given the confusion and sliding out of bed early this morning. I saw the patient this morning and he is AAO x 1 as he was upon discharge a few days ago, with noticeable addition of slurred speech as compared to prior d/c. Patient does not endorse any pain anywhere upon ROS but is sensitive to palpation for pain in LLE, abdominal area in particular, and to some extent to pain in sacral area. Patient cooperative, conversant, somewhat hard of hearing, at times seems to persevere on independent subject matter. Principal Diagnosis Delirium/metabolic encephalopathy Discharge Exam In general he is awake and alert pleasant no distress. HEENT normocephalic atraumatic mucous membranes moist. Breathing unlabored no accessory muscle use good effort. Skin shows no rashes no pallor or icterus. Neuro without focal deficits Discharge Data Allergies Allergy/AdvReac Type Severity Reaction Status Date / Time No Known Allergies Allergy Verified 03/26/23 17:37 Consultations 04/18/23 06:17 ED Decision to Admit Stat Ordered Studies 04/18/23 03:22 CT head/brain wo con Stat 04/18/23 11:35 US venous doppler LE LT Routine Hospital Course (1) Elevated WBC count: (2) Elevated lactic acid level: (3) Acute UTI: (4) Confusion: (5) DVT (deep venous thrombosis): (6) Sacral wound: (7) Morbid obesity with BMI of 40.0-44.9, adult: Plan 1) Confusion/Altered Mental Status/Encephalopathy -See below under supervising physician sectionI assumed care so low as resident physician was not on service today, plan as below 2) UTI Cefdinir 3) DVT, LLE -Continue Coumadin, outpatient monitoring, INR today 2.5 4) sacral superficial pressure ulcer (l. buttock) -Outpatient management 5) L5 vertebral fracture noted on previous admission Repeat MRI in 1 month. 6) Paroxysmal atrial fibrillation - stable Rate controlled, anticoagulated 7) CAD With history of PCI Continue metoprolol, aspirin, rosuvastatin Last echo with EF 55-59% 2018 8) Obstructive sleep apnea: CPAP nightly 9) Diabetes (T2DM): Last A1c 7.2% Consider weight-based basal bolus after Glu tomorrow DM2/heart healthy diet Total Time Total Time Spent Total Time Spent (In Minutes): Less than 30 Discharge Plan Discharge Items Patient Disposition: Transfer Jail Fac Reason For Visit: CONFUSION Discharge Diagnosis: metabolic encephalopathy, UTI Activity: Resume your previous activity Non-emergency contact: Primary Care Provider Call non-emergency contact if: you have any medication questions and you have a fever Follow-up/Referrals: Ta Chi, [Primary Care Provider] - Diet: Carb Consistent or DM2 Addtl Attending Provider Instructions: delirium -the main reason for readmission to the hospital was delirium - it was probably multiple factors at play - the main one being a UTI, but also dehydration likely played a role, and the changing environments of a prolonged hospitalization followed by return to personal care -as far as the recurrent UTIs - voiding is going well without a catheter - hopefully this should reduce the frequency of infections. if it does not, then i would strongly consider stopping the jardiance -as far as dehydration, i would encourage oral fluids and track intake for a goal of 60 ounces of fluids a day You were admitted to the hospital for metabolic encephalopathy, confusion, and a urinary tract intervention. You were treated with Zosyn, cefdinir, and his home medications. A discharge summary will be sent to your primary care physician to ensure continuity of care. Please bring this discharge summary with you to your next office appointment so that your provider can review it at that time. Follow-up appointments: We have requested a follow-up appointment with your primary care physician within one week of discharge. Please call their office if you do not hear from them. Keep all your follow-up appointments as already scheduled. If you cannot make an appointment, notify your provider. Medications: Your medication list has been reviewed and reconciled upon discharge to ensure accuracy and continuity of care. An updated list of all your medications is included with your hospital discharge paperwork. Please review this list closely, and make note of any changes. We sent a new medication called Cefdenir to your pharmacy. Take Cefdinir 300 mg/one tablet, twice a day, for 9 more days. Take your medications as instructed; do not skip a dose of your medicines. Make sure all of your doctors know every medicine you are taking (including o ypk-det-vjyrnps medicines, vitamins, and supplements). Call your primary care provider before taking any new medicines (including quhi-lgv-dnajnyj medicines, vitamins, and supplements), because some of these may interact with your current medications, or may make your symptoms worse. Tell your primary care provider if you cannot afford your medications. CONTACT YOUR PRIMARY CARE PROVIDER if you experience any of the following: confusion, increased disorientation from patient's baseline burning with urination, increased urinary frequency Difficulty following your treatment plan, or difficulty taking medications CALL 911 OR GO TO THE EMERGENCY DEPARTMENT if you experience any of the following: Sudden, severe abdominal pain or nausea/vomiting Severe chest pain, or chest pain that radiates (moves) to your jaw or arm Sudden, severe shortness of breath or difficulty breathing Thank you for allowing us to participate in your care Pending Studies at Discharge: No Stand-Alone Forms: [facility] Skilled Items Patient informed of condition?: Yes DNR: No Discharge Level of Care: Skilled Communicable Disease: No Discharge Prognosis: Stable Lines: None Urinary Catheter: No Medications and DC Order Prescriptions: New cefdinir 300 mg capsule 300 mg PO BID 9 Days Qty: 18 0RF Continued aspirin 81 mg Tablet,Delayed Release (Dr/Ec) 81 mg PO DAILY rosuvastatin 20 mg Tablet 20 mg PO QPM folic acid 1 mg Tablet 1 mg PO BID doxazosin [Cardura] 1 mg Tablet 1 mg PO HS nitroglycerin [Nitrostat] 0.4 mg Tablet, Sublingual 0.4 mg sublingual .EVERY 5 MIN PRN (Reason: Chest Pain) Rx Instructions: x3 doses q 5mins for chest pain cholecalciferol (vitamin D3) [Vitamin D3] 50 mcg (2,000 unit) Capsule 50 mcg PO DAILY warfarin 5 mg tablet 5 mg PO HS pantoprazole 40 mg tablet,delayed release (DR/EC) 40 mg PO DAILY metoprolol tartrate 25 mg Tablet 12.5 mg PO BID Qty: 0 0RF melatonin 3 mg Tablet,Disintegrating 3 mg PO HS potassium chloride 10 mEq tablet,ER particles/crystals 10 meq PO BID sennosides [Senokot] 8.6 mg tablet 17.2 mg PO DAILY furosemide [Lasix] 40 mg tablet 40 mg PO BID Rx Instructions: daily at 0800 and 2000 Jardiance 25 mg tablet 25 mg PO DAILY multivitamin [Daily-Lala] Tablet 1 tab PO DAILY coQ10 (ubiquinol) 200 mg Capsule 400 mg PO DAILY Rx Instructions: using softgel acetaminophen 325 mg Tablet 650 mg PO Q6 MDD 3g PRN (Reason: Fever Or Pain) polyethylene glycol 3350 [ClearLax] 17 gram Powder In Packet 17 g PO DAILY Discharge Orders: Discharge Order (Routine); Ordered 04/22/23 Ordered By: Mohsen Rg/Other Patient Handouts: Urinary Tract Infections in Men Admission Data Admit Date/Time: 04/20/23 11:55 Attending Provider: Mohsen Valderrama Admit Provider: Kristopher Lemos Primary Care Provider: Ta Chi Other Providers: Mohsen Valderrama Other Interventions: Discharge Summary Assessment (RN) Last Done: 04/22/23 11:13 Supervising Physician Co-Signing Physician Notes No new complaints. Excited to leave the hospital. Tried to call daughter, case management was able to close the loop, resident physician conversation with daughter yesterday answered all of her concerns. delirium/metabolic encephalopathy present on admissiondifferential broad: Infectioushe did SIRS/sepsis on admission given WBC/HR and (+) urine culture. Urine is showing gram-negative rodsgiven the SIRS on admission - while this potentially could be asymptomatic bacteruria, obligated to treat as catheter associated UTI w sepsis POA. Fortunately pansensitive Klebsiellaeasy to treat. Given that I cannot find any pressing reason for him to require catheter (on chart review I do not see any chronic urinary retention/neurogenic bladder/severe BPH/urology notes suggesting the need for ongoing Foote drainage) we dc'd foote and he has continued to void well. If he has recurrent UTIs now that Foote is removed, would consider stopping Jardiance metabolicunclear how well he has been doing eating and drinking, and certainly dehydration is a very common cause for metabolic driven delirium. was given gentle IV fluids, now improving p.o. intake, would follow/encourage p.o. intake at personal care Environmentalhe had been in the hospital for a fairly prolonged stay seeking disposition, and then return to his personal usp. In discussion with resident physician who had him at the end of last admission as well, he sounded to have been getting somewhat delirious even prior to dischargegiven the long arc of the delirium once it starts, it certainly possible that we are seeing ongoing delirium from his previous prolonged hospital stay toxicsame as above in discussions with resident physician, he apparently did require 1 dose of Zyprexa prior to discharge from his previous admission, which, obviously would not still have any significant half-life in his body, but could have altered sensorium prior to shifting environment is contributing to the delirium as well. improving safe for return to [facility] if another UTI - would then consider stopping Jardiance Coding Level of Care Code 74156 IN/OBS DISCH 30 MIN/LESS Diagnoses Elevated WBC count D72.829 Elevated lactic acid level R79.89 Acute UTI N39.0 Confusion R41.0 DVT (deep venous thrombosis) I82.409 Affected thrombotic vein of extremity: unspecified vein of extremity Chronicity: acute DVT location: lower extremity Laterality: unspecified laterality Sacral wound S31.000A Morbid obesity with BMI of 40.0-44.9, adult E66.01; Z68.41
== END 2023-04-22 11:35 | disposition hospice, inpatient (51) | DRG 871 ==
LOC: SUATTDRO → ED 03:16 → EDINP 03:16 → 3E 09:57

== ENCOUNTER 2024-05-20 09:34 | Inpatient (IN) ==
--- NOTE | 2024-05-20 09:45 | Emergency Department Note ---
Impression & Plan Acute pyelonephritis, Acute alteration in mental status, Weakness ED Provider Note NAME: NINO SEAMAN AGE: 73 SEX: M : 1950 ARRIVES VIA: Ambulance INFORMANT: Patient, EMS ED PROVIDER(S): Enio Bailey DO CHIEF COMPLAINT: Altered mental status HPI: The patient is a 73-year-old male who presented to the emergency department for an evaluation of altered mental status. The patient is at a personal long term. The patient was found to be diaphoretic and pale. He seemed to be weaker than usual. 911 was called. The patient arrived with ALS. At this time the patient offers no complaints. Apparently the patient is normally able to ambulate and has better strength in his lower extremities but he apparently was not able to do that. The patient denies having any headache. He does have a low-grade fever in the emergency department. The patient does have a history of underlying dementia which makes history somewhat difficult to obtain. ROS: See above HPI for pertinent positives & negatives. A total of 10 systems reviewed and were otherwise negative. PAST MEDICAL HISTORY: See Below PAST SURGICAL HISTORY: See Below FAMILY HISTORY: See Below SOCIAL HISTORY: See Below HOME MEDICATIONS: See Below ALLERGIES: See Below VITALS: See Below PHYSICAL EXAMINATION: GENERAL: The patient is awake and alert. He follows commands slowly but appropriately. EYES: The conjunctivae are clear. The pupils are round and reactive. EARS, NOSE, MOUTH AND THROAT: The nose is without any evidence of any deformity. NECK: The neck is nontender and supple. RESPIRATORY: Normal respiratory effort is noted there is no evidence of wheezing rhonchi or rales CARDIOVASCULAR: Regular rate and rhythm noted there no murmurs rubs or gallops normal S1 normal S2. GASTROINTESTINAL: The abdomen is soft. Abdomen is nontender. MUSCULOSKELETAL/EXTREMITIES: There is no evidence of gross deformity full range of motion is noted in the hips and shoulders. SKIN: Skin is warm and dry. There is pedal edema bilaterally. NEUROLOGIC: Patient is awake and oriented to person but not place or situation. There is no drift in the upper extremities. There is no facial droop. The patient can speak his name. He does appear to be slow to follow commands. He does appear to be symmetrically weaker in both lower extremities. MEDICAL DECISION MAKING: The patient is a 73-year-old male who presented to the emergency department for altered mental status. The patient was diaphoretic. The patient was having urinary continence. The patient was treated with IV fluids and IV antibiotics in the emergency department. He was found to have signs of urinary tract infection on urinalysis. The patient has a history of Klebsiella in the urine in the past. I did choose an antibiotic based on his previous urine culture. The patient was tachycardic and febrile. Blood pressure was acceptable. He was reevaluated multiple times. I discussed the patient's laboratory and radiographic studies with the on-call [facility]. They have agreed to evaluate the patient in the emergency department for further management and disposition. Triage Nursing notes reviewed. Prior medical records reviewed Vital Signs: reviewed and remarkable for tach cardia and fever. Differential diagnosis: Infection, dehydration, metabolic abnormality, hypo/hyperglycemia, electrolyte disturbance, anemia, hypoxia, cardiac sources, intracerebral event, toxicologic, neurologic, as well as other pathologies. ER treatment provided: See below Diagnostics interpreted by me: ECG: EKG was obtained in the emergency department. My interpretation is sinus tachycardia at 107 bpm. There were no PVCs noted. Nonspecific ST segment abnormalities were noted. This was compared to a tracing from December 14, 2023. No changes were noted. Cardiac Monitoring: An order was placed for continuous cardiac monitoring. The monitor shows a rate of 109 bpm with sinus tachycardia. Laboratory studies: As stated above and show below. Imaging studies: See below. Radiographic imaging was reviewed by myself Consultation(s): I discussed this case with Dr. Vallejo who is on-call for the [facility]. Past Med/Surg History Problem List (Updated 05/20/24 @ 14:20 by Enio Bailey DO) Weakness (Acute) Acute alteration in mental status (Acute) Acute pyelonephritis (Acute) Elevated WBC count (Acute) Elevated lactic acid level (Acute) Acute UTI (Acute) Confusion (Acute) Abdominal distension L5 vertebral fracture Cellulitis Cognitive impairment (Acute) Morbid obesity with BMI of 40.0-44.9, adult Self-care deficit Obstructive sleep apnea DVT (deep venous thrombosis) (Acute) DJD of shoulder (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) Sacral wound Diabetes (Chronic) NIDDM Heart disease (Chronic) CAD-1 stent Encounter for pre-operative examination Persistent atrial fibrillation CAD (coronary artery disease) History of right hip replacement Lymphedema (Chronic) Chronic venous insufficiency (Chronic) Venous stasis ulcer (Acute) Arthritis of left hip Hip bursitis, left Hypertension Medical History Sepsis Urinary tract infection Cellulitis of lower extremity Diastolic heart failure CAD (coronary artery disease) s/p BMS to RCA in 1997 IBS (irritable bowel syndrome) Chronic obstructive pulmonary disease controlled w/ inhaler Sleep apnea CPAP- not currently using due to worries about safety after recall, to speak w/ about Osteoarthritis Diabetes mellitus, type 2 NIDDM- no longer taking metformin due to bowel issues per pt Hearing deficit BL [place] Hyperlipidemia Atrial fibrillation dx 1 year ago - on warfarin - follows dr. ruiz needs cardioversion and had cardioversion x 2 about a year ago 09/22/21- last visit w/ joseph about 6 mos ago, states is due for another visit Pilonidal cyst Depression Obesity Anemia Migraines Myocardial infarction 1997 Chronic GERD Surgical History History of heart artery stent 1997 - [place] - 1 stent placed - hospital in [place], [place] reports had another cath early in [facility] - no stents/angioplasty now follows w/ dr ruiz- 6 mos since last visit History of cataract surgery right and left History of total hip arthroplasty RT History of total shoulder replacement BL History of esophagogastroduodenoscopy (EGD) H/O colonoscopy Hx laparoscopic cholecystectomy Family History Brother Family history of diabetes mellitus X2 Social History Smoking Status: Never smoker Tobacco Type: Cigarettes Second Hand Exposure: No; Do You Dip or Chew Tobacco: No; Hx Alcohol Use: No Hx Substance Use: No Preferred Language: Marshallese Communication Ability: Effective 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 Required: No Beliefs That Will Affect Care: None Current Living Situation: Prison Feels Safe at Home: Yes Assistive Devices: Walker Allergies Allergies Allergy/AdvReac Type Severity Reaction Status Date / Time No Known Allergies Allergy Verified 12/05/23 13:17 Home Meds Home Medications Medication Instructions Recorded Confirmed aspirin 81 mg tablet,delayed 81 mg PO .DAILY @0800 05/18/18 05/20/24 release doxazosin 1 mg tablet (Cardura) 1 mg PO .DAILY @ 199905/18/18 05/20/24 folic acid 1 mg tablet 1 mg PO .DAILY @05/18/18 05/20/24 rosuvastatin 20 mg tablet 20 mg PO .DAILY@199905/18/18 05/20/24 cholecalciferol (vitamin D3) 50 50 mcg PO .DAILY@79909/04/19 05/20/24 mcg (2,000 unit) capsule (Vitamin D3) pantoprazole 40 mg tablet,delayed 40 mg PO .DAILY@79902/18/23 05/20/24 release empagliflozin 25 mg tablet 25 mg PO .DAILY@79903/26/23 05/20/24 (Jardiance) furosemide 40 mg tablet (Lasix) 20 mg PO .DAILY@ 199903/26/23 05/20/24 melatonin 3 mg disintegrating 3 mg PO .DAILY@199903/26/23 05/20/24 tablet multivitamin (Daily-Lala tablet) 1 tab PO .DAILY @79903/26/23 05/20/24 potassium chloride 10 mEq 10 meq PO .[id number],199903/26/23 05/20/24 tablet,extended release(part/cryst) clopidogrel 75 mg tablet 75 mg PO .DAILY @79910/22/23 05/20/24 metoprolol tartrate 25 mg tablet 12.5 mg PO .DAILY@79910/22/23 05/20/24 nystatin 100,000 unit/gram topical 1 applic topical .DAILY@10/22/23 05/20/24 cream quetiapine 25 mg tablet (Seroquel) 25 mg PO .DAILY@79905/17/24 05/20/24 furosemide 40 mg tablet (Lasix) 40 mg PO .DAILY@79905/20/24 05/20/24 sennosides 8.6 mg-docusate sodium 1 tab-cap PO DAILY PRN Constipation 05/20/24 05/20/24 50 mg tablet (Senna with Docusate Sodium) Results & Data (ED) Vital Signs Vital Signs - 24 hr 05/20/24 10:00 05/20/24 10:00 05/20/24 10:18 Temperature 37.8 C H Temperature Source Oral Pulse Rate 102 H 99 H Pulse Rate [Apical] Pulse Rhythm [Apical] Pulse Strength [Apical] Respiratory Rate 18 Respiratory Effort / Characteristics Non-Labored Spontaneous Respiratory Depth Normal Respiratory Pattern Blood Pressure 102/57 L Blood Pressure [Right Arm] Blood Pressure Mean 72 Blood Pressure Mean [Right Arm] Blood Pressure Position [Right Arm] Pulse Oximetry 98 97 Oxygen Delivery Method Room Air Room Air Sepsis Recent Fever Within 48 Hours No Sepsis New/Unexplained Change in Mental Status No Sepsis Action Taken by Nursing No Action Required 05/20/24 11:02 05/20/24 11:03 05/20/24 13:35 Temperature Temperature Source Pulse Rate Pulse Rate [Apical] 103 H 109 H Pulse Rhythm [Apical] Regular Pulse Strength [Apical] Normal Normal Respiratory Rate 16 21 Respiratory Effort / Characteristics Non-Labored Spontaneous Non-Labored Spontaneous Respiratory Depth Normal Normal Respiratory Pattern Regular Regular Blood Pressure Blood Pressure [Right Arm] 122/71 121/57 L Blood Pressure Mean Blood Pressure Mean [Right Arm] 88 78 Blood Pressure Position [Right Arm] Lying Lying Pulse Oximetry 93 93 93 Oxygen Delivery Method Room Air Room Air Room Air Sepsis Recent Fever Within 48 Hours Sepsis New/Unexplained Change in Mental Status Sepsis Action Taken by Prison Medications Current Medication List: was personally reviewed by me Laboratory Data Attestation: I reviewed the patient's lab results. 05/20/24 10:22 05/20/24 10:22 Lab Results 05/20/24 05/20/24 05/20/24 Range/Units 09:55 10:22 11:51 WBC 12.00 H (4.8-10.8) K/ul RBC 5.30 (4.70-6.10) M/uL Hgb 16.2 (14.0-18.0) g/dl Hct 48.0 (42.0-52.0) % MCV 90.6 (80.0-100.0) fL MCH 30.6 (25.0-34.0) pg MCHC 33.8 (32.0-36.0) g/dL RDW Std Deviation 46.7 H (36.4-46.3) fL RDW Coeff of Carlton 13.9 (11.5-14.5) % Plt Count 152 (130-400) K/uL MPV 10.3 (9.4-12.4) fL Immature Gran % (Auto) 0.6 % Neut % (Auto) 89.5 % Lymph % (Auto) 2.4 % Seward % (Auto) 7.1 % Eos % (Auto) 0.1 % Baso % (Auto) 0.3 % Neut # (Auto) 10.74 H (1.40-6.50) K/uL Lymph # (Auto) 0.29 L (1.20-3.40) K/uL Seward # (Auto) 0.85 H (0.11-0.59) K/uL Eos # (Auto) 0.01 (0.00-0.50) K/uL Baso # (Auto) 0.04 (0.00-0.20) K/uL Immature Gran # (Auto) 0.07 (0.01-0.20) K/uL PT 11.2 (9.0-12.0) Seconds INR 1.0 (0.9-1.1) APTT 26 (21-31) Seconds PTT Ratio 1.0 VBG pH 7.43 H (7.36-7.41) VBG pCO2 42 (38-50) mmHg VBG pO2 < 20 mmHg VBG HCO3 28 mmol/L VBG O2 Saturation < 60.0 % VBG Base Excess 3.2 mEq/L Sodium 137 (136-145) mmol/L Potassium 3.9 (3.5-5.1) mmol/L Chloride 102 (98-107) mmol/L Carbon Dioxide 27 (21-32) mmol/L Anion Gap 8 (3-11) BUN 13 (6-23) mg/dl Creatinine 0.99 (0.6-1.4) mg/dl Est Cr Clr Drug Dosing 81.9 ml/min eGFR 79.94 BUN/Creatinine Ratio 13.1 (10-20) Glucose 153 H (70-99(Fasting)) mg/dl Lactate 2.5 H* (0.4-2.0) mmol/L Calcium 9.2 (8.6-10.3) mg/dl Magnesium 2.0 (1.7-2.4) mg/dl Total Bilirubin 1.4 H (0.2-1.0) mg/dl Direct Bilirubin 0.3 H (0-0.2) mg/dl AST 19 (13-39) U/L ALT 14 (7-52) U/L Alkaline Phosphatase 70 (34-104) U/L Troponin I High Sens 6.4 (0-20) pg/ml Total Protein 7.1 (6.0-8.3) gm/dl Albumin 4.1 (3.4-5.0) gm/dl Procalcitonin 0.33 (0-0.5) ng/ml Urine Color Yellow Urine Appearance Cloudy A (Clear) Urine pH 6.0 (4.5-7.5) Ur Specific [place] 1.025 (1.000-1.030) Urine Protein Trace H (Negative) Urine Glucose (UA) 3+ H (Negative) Urine Ketones 1+ H (Negative) Urine Blood Trace H (Negative) Urine Nitrite Negative (Negative) Urine Bilirubin Negative (Negative) Urine Urobilinogen Negative (Negative) Ur Leukocyte Esterase 2+ H (Negative) Urine WBC (Auto) >50 H (0-5) /hpf Urine RBC (Auto) 0-2 (0-2) /hpf U Hyaline Cast (Auto) 0-2 (0-2) /lpf U Epithel Cells (Auto) 0-2 (0-2) /hpf Urine Bacteria (Auto) 4+ H (None Seen) Adenovirus (PCR) Not Detected (NotDetected) B. pertussis DNA (PCR) Not Detected (NotDetected) B.parapertussis DNA PCR Not Detected (NotDetected) C. pneumoniae DNA (PCR) Not Detected (NotDetected) Coronavirus OC43 (PCR) Not Detected (NotDetected) Coronavirus HKU1 (PCR) Not Detected (NotDetected) Coronavirus 229E (PCR) Not Detected (NotDetected) SARS-CoV-2 (PCR) Not Detected (NotDetected) Coronavirus NL63 (PCR) Not Detected (NotDetected) Human Metapneumovir PCR Not Detected (NotDetected) Influenza Type A (PCR) Not Detected (NotDetected) Influenza Type B (PCR) Not Detected (NotDetected) M. pneumoniae (PCR) Not Detected (NotDetected) Parainfluenza 1 (PCR) Not Detected (NotDetected) Parainfluenza 2 (PCR) Not Detected (NotDetected) Parainfluenza 3 (PCR) Not Detected (NotDetected) Parainfluenza 4 (PCR) Not Detected (NotDetected) RSV (PCR) Not Detected (NotDetected) Entero/Rhino (PCR) Not Detected (NotDetected) 05/20/24 Range/Units 12:25 WBC (4.8-10.8) K/ul RBC (4.70-6.10) M/uL Hgb (14.0-18.0) g/dl Hct (42.0-52.0) % MCV (80.0-100.0) fL MCH (25.0-34.0) pg MCHC (32.0-36.0) g/dL RDW Std Deviation (36.4-46.3) fL RDW Coeff of Carlton (11.5-14.5) % Plt Count (130-400) K/uL MPV (9.4-12.4) fL Immature Gran % (Auto) % Neut % (Auto) % Lymph % (Auto) % Seward % (Auto) % Eos % (Auto) % Baso % (Auto) % Neut # (Auto) (1.40-6.50) K/uL Lymph # (Auto) (1.20-3.40) K/uL [place] # (Auto) (0.11-0.59) K/uL Eos # (Auto) (0.00-0.50) K/uL Baso # (Auto) (0.00-0.20) K/uL Immature Gran # (Auto) (0.01-0.20) K/uL PT (9.0-12.0) Seconds INR (0.9-1.1) APTT (21-31) Seconds PTT Ratio VBG pH (7.36-7.41) VBG pCO2 (38-50) mmHg VBG pO2 mmHg VBG HCO3 mmol/L VBG O2 Saturation % VBG Base Excess mEq/L Sodium (136-145) mmol/L Potassium (3.5-5.1) mmol/L Chloride (98-107) mmol/L Carbon Dioxide (21-32) mmol/L Anion Gap (3-11) BUN (6-23) mg/dl Creatinine (0.6-1.4) mg/dl Est Cr Clr Drug Dosing ml/min eGFR BUN/Creatinine Ratio (10-20) Glucose (70-99(Fasting)) mg/dl Lactate 2.6 H* (0.4-2.0) mmol/L Calcium (8.6-10.3) mg/dl Magnesium (1.7-2.4) mg/dl Total Bilirubin (0.2-1.0) mg/dl Direct Bilirubin (0-0.2) mg/dl AST (13-39) U/L ALT (7-52) U/L Alkaline Phosphatase (34-104) U/L Troponin I High Sens (0-20) pg/ml Total Protein (6.0-8.3) gm/dl Albumin (3.4-5.0) gm/dl Procalcitonin (0-0.5) ng/ml Urine Color Urine Appearance (Clear) Urine pH (4.5-7.5) Ur Specific [place] (1.000-1.030) Urine Protein (Negative) Urine Glucose (UA) (Negative) Urine Ketones (Negative) Urine Blood (Negative) Urine Nitrite (Negative) Urine Bilirubin (Negative) Urine Urobilinogen (Negative) Ur Leukocyte Esterase (Negative) Urine WBC (Auto) (0-5) /hpf Urine RBC (Auto) (0-2) /hpf U Hyaline Cast (Auto) (0-2) /lpf U Epithel Cells (Auto) (0-2) /hpf Urine Bacteria (Auto) (None Seen) Adenovirus (PCR) (NotDetected) B. pertussis DNA (PCR) (NotDetected) B.parapertussis DNA PCR (NotDetected) C. pneumoniae DNA (PCR) (NotDetected) Coronavirus OC43 (PCR) (NotDetected) Coronavirus HKU1 (PCR) (NotDetected) Coronavirus 229E (PCR) (NotDetected) SARS-CoV-2 (PCR) (NotDetected) Coronavirus NL63 (PCR) (NotDetected) Human Metapneumovir PCR (NotDetected) Influenza Type A (PCR) (NotDetected) Influenza Type B (PCR) (NotDetected) M. pneumoniae (PCR) (NotDetected) Parainfluenza 1 (PCR) (NotDetected) Parainfluenza 2 (PCR) (NotDetected) Parainfluenza 3 (PCR) (NotDetected) Parainfluenza 4 (PCR) (NotDetected) RSV (PCR) (NotDetected) Entero/Rhino (PCR) (NotDetected) Administered Medications Discontinued Medications Sodium Chloride (Nss) 1,000 mls @ 999 mls/hr IV .Q1H1M ONE Stop: 05/20/24 12:18 Last Infusion: 05/20/24 12:35 Dose: Infused Documented By: Admin: 05/20/24 11:21 Dose: 999 mls/hr Documented By: BLANCA Ceftriaxone Sodium (Rocephin) 2,000 mg in 50 mls @ 100 mls/hr IV NOW STA Stop: 05/20/24 11:47 Last Infusion: 05/20/24 11:59 Dose: Infused Documented By: Admin: 05/20/24 11:24 Dose: 100 mls/hr Documented By: BLANCA Sodium Chloride (Nss) 1,000 mls @ 999 mls/hr IV .Q1H1M ONE Stop: 05/20/24 13:41 Last Admin: 05/20/24 13:41 Dose: 999 mls/hr Documented By: BLANCA Lactated Ringer's (Lr) 1,000 mls @ 999 mls/hr IV .Q1H1M ONE Stop: 05/20/24 13:45 Last Admin: 05/20/24 13:44 Dose: 999 mls/hr Documented By: BLANCA Ioversol (Optiray 320 100ml) 94 ml IV ONCE ONE Stop: 05/20/24 13:18 Last Admin: 05/20/24 13:17 Dose: 94 ml Documented By: MORGAN Imaging Data Attestation: I personally reviewed and interpreted this imaging study as follows: My Impression: 1 view chest x-ray was obtained in the emergency department. My interpretation is no free air or definite infiltrate, final report below. CT of the brain was obtained in the emergency department. My interpretation is no intracranial hemorrhage or mass effect, final report below. Radiologist's Impression: Chest X-Ray 05/20/24 09:40 HISTORY: Sepsis. TECHNIQUE: Portable AP chest radiograph. COMPARISON: Chest radiograph dated 12/14/2023. FINDINGS: air sampling and monitoring leads overlie the chest. No focal consolidation. No pneumothorax or pleural effusion. Normal heart size. Left-sided aortic arch for midline trachea. Bilateral shoulder arthroplasties. Included upper abdomen is unremarkable. IMPRESSION: No acute cardiopulmonary findings. Electronically signed by Kahlil Rai 05-20-2024 10:[address] 05/20/24 09:40 HISTORY: Altered mental status. TECHNIQUE: CT of the head without contrast. Images are presented in axial, sagittal, and coronal reformats. COMPARISON: Head CT dated 04/18/2023. FINDINGS: Evaluation is limited by motion artifact near the vertex. No evidence of intracranial hemorrhage, abnormal extra-axial fluid collection, mass effect, or midline shift. Mild volume loss and presumed chronic microvascular ischemic changes. Stable ventricular caliber. Fourth ventricle is midline. The basal cisterns are patent. Frye-white differentiation is maintained. Globes and orbits are unremarkable. Soft tissues about the skull base and scalp are unremarkable. Paranasal sinuses and mastoid air cells are clear. No calvarial fracture. IMPRESSION: * No acute intracranial findings within the limitations of motion artifact. * Mild volume loss and presumed chronic microvascular ischemic changes. * Additional chronic and/or incidental findings as above. Electronically signed by Kahlil Rai 05-20-2024 11:26 AM Abdomen/Pelvis CT 05/20/24 12:53 HISTORY: Sepsis. Right lower quadrant abdominal pain TECHNIQUE: Helical CT imaging of the abdomen was performed following uneventful administration of 94 mL of Optiray 320 IV contrast. Images are presented in axial, sagittal, and coronal reformats. COMPARISON: CT the abdomen pelvis without contrast dated 03/26/2023. FINDINGS: Lung Bases/Inferior Mediastinum: Atelectasis at the lung bases. Coronary artery calcifications. Liver: [Unremarkable] Gallbladder: Surgically absent. Spleen: [Unremarkable] Adrenals: [Unremarkable] Pancreas: [Unremarkable] Kidneys: Focal area of decreased enhancement involving the superior pole of the left kidney favoring pyelonephritis. Kidneys are otherwise unremarkable. The area of hypoenhancementMeasuring 4.5 x 3.4 cm. Stomach/Bowel: Distal esophagus, stomach, duodenum are unremarkable. Small bowel loops are normal in caliber. The colon is normal in caliber. The appendix is not identified. Lymph nodes: [Unremarkable] Vasculature: No abdominal aortic aneurysm. Moderate atherosclerotic vascular disease. Pelvis: Evaluation of the pelvis is compromised by streak artifact from right hip arthroplasty. Asymmetric wall thickening along the right aspect of the urinary bladder on series 2 image 69. Prostate is unremarkable. Soft Tissues: Small fat-containing umbilical hernia. The soft tissues of the body wall are unremarkable. Bones: [Right hip arthroplasty. Severe left hip arthrosis.Severe degenerative spondylosis with severe multilevel central canal and neural foraminal stenosis. IMPRESSION: * Hypoenhancement involving the superior pole of the left kidney with mild adjacent inflammation suggesting acute pyelonephritis. Renal infarct could have a similar appearance, but is thought to be less likely. There is no fluid collection or abscess. Recommend correlation with urinalysis. * Mild asymmetric wall thickening along the right aspect of the urinary bladder. Urology consultation is recommended. * Severe degenerative changes of the spine with severe multilevel central canal and neuroforaminal stenosis. * Appendix is not identified. * Numerous additional chronic and/or incidental findings as detailed above. Electronically signed by Kahlil Rai 05-20-2024 2:04 PM Discharge Plan Visit Data Chief Complaint: Weakness Stated Complaint: WEAKNESS, LETHARGIC ED Provider: Enio Bailey Discharge Problem: Acute pyelonephritis, Acute alteration in mental status, Weakness Patient Disposition: Being Evaluated by Hospitalist Forms Stand Alone Forms: My [facility] Prescriptions Prescriptions: No Action quetiapine [Seroquel] 25 mg tablet 25 mg PO .DAILY@0800 aspirin 81 mg Tablet,Delayed Release (Dr/Ec) 81 mg PO .DAILY @799 rosuvastatin 20 mg Tablet 20 mg PO .DAILY@1999 folic acid 1 mg Tablet 1 mg PO .DAILY @ doxazosin [Cardura] 1 mg Tablet 1 mg PO .DAILY @ 1999 cholecalciferol (vitamin D3) [Vitamin D3] 50 mcg (2,000 unit) Capsule 50 mcg PO .DAILY@08 pantoprazole 40 mg tablet,delayed release (DR/EC) 40 mg PO .DAILY@0800 melatonin 3 mg Tablet,Disintegrating 3 mg PO .DAILY@1999 potassium chloride 10 mEq tablet,ER particles/crystals 10 meq PO .[id number] furosemide [Lasix] 40 mg tablet 20 mg PO .DAILY@ 1999 Rx Instructions: daily at 0800 and 1999 Jardiance 25 mg tablet 25 mg PO .DAILY@0800 multivitamin [Daily-Lala] Tablet 1 tab PO .DAILY @08 clopidogrel 75 mg Tablet 75 mg PO .DAILY @08 nystatin 100,000 unit/gram Cream 1 applic TOPICAL .DAILY@ Rx Instructions: apply to scrotal area metoprolol tartrate 25 mg tablet 12.5 mg PO .DAILY@0800 furosemide [Lasix] 40 mg Tablet 40 mg PO .DAILY@0800 sennosides-docusate sodium [Senna with Docusate Sodium] 8.6-50 mg Tablet 1 tab-cap PO DAILY PRN (Reason: Constipation) Referrals Referrals: [facility] [Non-Staff] -
[2024-05-20 10:48] LABS: Base Excess VBG 3.2 mEq/L; HCO3 VBG 28 mmol/L; Oxygen Saturation VBG < 60.0 %; PCO2 VBG 42 mmHg (38-50); PO2 VBG < 20 mmHg; pH VBG 7.43 (7.36-7.41)
--- NOTE | 2024-05-20 10:48 | XRay Report ---
HISTORY: Sepsis. TECHNIQUE: Portable AP chest radiograph. COMPARISON: Chest radiograph dated 12/14/2023. FINDINGS: quality assurance monitor leads overlie the chest. No focal consolidation. No pneumothorax or pleural effusion. Normal heart size. Left-sided aortic arch for midline trachea. Bilateral shoulder arthroplasties. Included upper abdomen is unremarkable. IMPRESSION: No acute cardiopulmonary findings. Electronically signed by Kahlil Rai 05-20-2024 10:48 AM
[2024-05-20 10:51] LABS: Basophils # (auto) 0.04 K/uL (0.00-0.20); Basophils % (auto) 0.3 %; Eosinophils # (auto) 0.01 K/uL (0.00-0.50); Eosinophils % (auto) 0.1 %; Hemoglobin 16.2 g/dl (14.0-18.0); Immature Granulocytes # (auto) 0.07 K/uL (0.01-0.20); Immature Granulocytes % (auto) 0.6 %; Lymphocytes # (auto) 0.29 K/uL (1.20-3.40); Lymphocytes % (auto) 2.4 %; Mean Corpuscular Hemoglobin 30.6 pg (25.0-34.0); Mean Corpuscular Hgb Conc 33.8 g/dL (32.0-36.0); Mean Corpuscular Volume 90.6 fL (80.0-100.0); Mean Platelet Volume 10.3 fL (9.4-12.4); Monocytes # (auto) 0.85 K/uL (0.11-0.59); Monocytes % (auto) 7.1 %; Neutrophils # (auto) 10.74 K/uL (1.40-6.50); Neutrophils % (auto) 89.5 %; Platelet Count 152 K/uL (130-400); RDW Coefficient of Variation 13.9 % (11.5-14.5); RDW Standard Deviation 46.7 fL (36.4-46.3)
[2024-05-20 11:07] LABS: Adenovirus PCR Not Detected (NotDetected); Bordetella parapertussis PCR Not Detected (NotDetected); Bordetella pertussis PCR Not Detected (NotDetected); Chlamydia pneumoniae PCR Not Detected (NotDetected); Coronavirus 229E PCR Not Detected (NotDetected); Coronavirus CoV-2 (COVID19)PCR Not Detected (NotDetected); Coronavirus HKU1 PCR Not Detected (NotDetected); Coronavirus NL63 PCR Not Detected (NotDetected); Coronavirus OC43PCR Not Detected (NotDetected); Human Metapneumovirus PCR Not Detected (NotDetected); Influenza A PCR Not Detected (NotDetected); Influenza B PCR Not Detected (NotDetected); Mycoplasma pneumoniae PCR Not Detected (NotDetected); Parainfluenza Virus 1 PCR Not Detected (NotDetected); Parainfluenza Virus 2 PCR Not Detected (NotDetected); Parainfluenza Virus 3 PCR Not Detected (NotDetected); Parainfluenza Virus 4 PCR Not Detected (NotDetected); Respiratory Syncytial VirusPCR Not Detected (NotDetected); Rhinovirus/Enterovirus PCR Not Detected (NotDetected)
[2024-05-20] MEDS: SODIUM CHLORIDE 0.9% 1,000 ML IV ONE ×2 (11:21→13:41)
[2024-05-20] MEDS: cefTRIAXone SODIUM 2,000 MG/50 ML BAG IV STA (11:24)
--- NOTE | 2024-05-20 11:26 | CT Scan Report ---
HISTORY: Altered mental status. TECHNIQUE: CT of the head without contrast. Images are presented in axial, sagittal, and coronal reformats. COMPARISON: Head CT dated 04/18/2023. FINDINGS: Evaluation is limited by motion artifact near the vertex. No evidence of intracranial hemorrhage, abnormal extra-axial fluid collection, mass effect, or midline shift. Mild volume loss and presumed chronic microvascular ischemic changes. Stable ventricular caliber. Fourth ventricle is midline. The basal cisterns are patent. Frye-white differentiation is maintained. Globes and orbits are unremarkable. Soft tissues about the skull base and scalp are unremarkable. Paranasal sinuses and mastoid air cells are clear. No calvarial fracture. IMPRESSION: * No acute intracranial findings within the limitations of motion artifact. * Mild volume loss and presumed chronic microvascular ischemic changes. * Additional chronic and/or incidental findings as above. Electronically signed by Kahlil Rai 05-20-2024 11:26 AM
[2024-05-20 11:33] LABS: Albumin Level 4.1 gm/dl (3.4-5.0); Bilirubin Direct 0.3 mg/dl (0-0.2); Bilirubin,Total 1.4 mg/dl (0.2-1.0); Calcium 9.2 mg/dl (8.6-10.3); Potassium 3.9 mmol/L (3.5-5.1)
[2024-05-20 11:35] LABS: Partial Thromboplastin Time 26 Seconds (21-31); Prothrombin Time 11.2 Seconds (9.0-12.0)
[2024-05-20 11:39] LABS: BUN Creatinine Ratio 13.1 (10-20); Creatinine Clr Calc Pharmacy 81.9 ml/min; Total Protein 7.1 gm/dl (6.0-8.3)
[2024-05-20 11:42] LABS: Troponin I High Sensitivity 6.4 pg/ml (0-20)
[2024-05-20 12:01] LABS: Appearance Urine Cloudy (Clear); Bacteria Urine Automated 4+ (None Seen); Bilirubin Urine Negative (Negative); Blood Urine Trace (Negative); Cast Urine Automated 0-2 /lpf (0-2); Color Urine Yellow; Epithelial Cell Urine Auto 0-2 /hpf (0-2); Glucose Urine UA 3+ (Negative); Ketones Urine 1+ (Negative); Leukocyte Esterase Urine 2+ (Negative); Nitrite Urine Negative (Negative); Protein Urine Trace (Negative); RBC Urine Automated 0-2 /hpf (0-2); Specific Gravity Urine 1.025 (1.000-1.030); Urobilinogen Urine Negative (Negative); WBC Urine Automated >50 /hpf (0-5)
--- NOTE | 2024-05-20 12:45 | History & Physical Report ---
Date of Service May 20, 2024 Assessment & Plan (1) Sepsis: Plan: Metabolic encephalopathy Acute on chronic. Suspect due to UTI. Treatment as noted. Delirium precautions Sepsis, suspect due to complicated UTI Lactate 2.5 at 1022, 2.6 on recheck at time of admit. He meets sepsis criteria with a leukocytosis, fever, hypotension, and tachycardia. Sepsis goal of 30cc/kg ABW 3351 cc, IBW 2263 cc. He has received 1 L at time of consultation with an uptrending lactate. 1500 cc additional bolus ordered to meet IBW sepsis guidelines, additional 1 L to be given if patient remains with clear breath sounds & elevated lactate. History of EF 55 to 59%, is on Lasix as outpatient denies history of CHF per patient her daughter. To meet ABW goals. Blood cultures are pending. Denies history of CHF and last EF 55-59% but does have a history of Lasix use and some ankle edema. Given uptrending lactate, hypotension, and tachycardia without chest pain or JVD additional fluids ordered to at least IBW goal per sepsis criteria of 2263 cc UA infected appearing. Patient with urinary incontinence. Multiple recurrent UTIs on Jardiance. This has been discontinued on admission Patient endorses left lower quadrant, suprapubic, left flank, and right lower quadrant tenderness to palpation, although without rebound/guarding. Given limited history, uptrending lactate, and sepsis CTA/P with IV contrast ordered Saturating 93% on room air, no hypoxia. No respiratory symptoms. No orthopnea. -Urine culture and blood cultures pending, follow speciation/sensitivities Switched to cefepime. Prior cultures positive for pansensitive Klebsiella and Citrobacter Rocephin resistant. Due to sepsis and history of prior Rocephin resistant UTI within the last year will switch to cefepime pending culture results Superficial pressure ulcer Left buttock unable to be assessed due to severe L hip pain on attempted exam - Reassessment pending Hip imaging L Hip/Femur Pain - Hx of prosthesis - XR hip/pelvis/L femur pending - No reported falls, pt unreliable historian. Pending callback from [facility] for collateral - Ankle dorsi/plantarflexion, PT pulse, and cap refill intact. Intact sensation to soft touch in ankle, calf, and L thigh without deficit CAD, history of PCI, A-fib DAPT continued Last EF 05/2018 55-59% Sinus on admission Patient was previously anticoagulated on warfarin. INR is 1.0 and he is not on anticoagulation per his med review from [facility]. Daughter was contacted for collateral, unsure of when or why this was discontinued. Callback left with facility staff due to review case with nurse.? Fall risk and low A-fib burden Chest x-ray without evidence of heart failure, no JVD, sedation is not consistent with acute on chronic CHF at time of admission MAMI CPAP at bedtime Type II DM Weight-based basal bolus while admitted Goal BSG 495727 Type II DM/heart healthy diet Glucose checks AC/at bedtime Jardiance held. Due to his recurrent UTIs would continue this on discharge Diet: Heart healthy, DM 2 Disposition:PCU CODE STATUS: DNR/DNI, confirmed with family Diet: Type II DM, heart healthy (2) Acute UTI: (3) CAD (coronary artery disease): (4) Diabetes: (5) Heart disease: (6) Hypertension: (7) Obstructive sleep apnea: (8) Sacral wound: History of Present Illness Primary Care Provider: Justo Burgos DO Isma Gavin is a 73-year-old male who presents found incontinent of urine lethargic and hypotensive with fever. He is recommended for admission for confusion. History at time of bedside evaluation is limited. Patient is oriented to name only. He is not oriented to year (1976) place. He denies chest pain, chest pressure, abdominal pain (although does grimace and endorse pain in his left lower quadrant on abdominal palpation), shortness of breath, difficulty breathing, fevers, chills. He is not sure where he is and is a limited historian. He does not know his medications or if he is on a blood thinner Discussed case with pts daughter Bushra. Weakness and confusion today. Per daughter has some waxing and waning confusion but it usually able to hold a conversation with his daughter on the phone or to order food. Does not know the day of the week, generally montero snot know where he was and is often confused on the date. Does have recurring UTIs with worsened confusion. Patient does have a living will, his daughter Tricia is his surrogate decision maker and medical decision maker. Per living will he is DNR/DNI. Updated from full code, discussed this with patient who does not demonstrate capacity due to confusion at time of assessment does agree with this. Medical History: Reviewed Medications: Reviewed Surgical History: Reviewed Family history: Reviewed Allergies: Reviewed Social History: Reviewed Code Status: DNR/DNI Allergies Allergy/AdvReac Type Severity Reaction Status Date / Time No Known Allergies Allergy Verified 12/05/23 13:17 Home Medications Medication Instructions Recorded Confirmed Type aspirin 81 mg tablet,delayed 81 mg PO .DAILY @79905/18/18 05/20/24 History release doxazosin 1 mg tablet (Cardura) 1 mg PO .DAILY @ 199905/18/18 05/20/24 History folic acid 1 mg tablet 1 mg PO .DAILY @05/18/18 05/20/24 History rosuvastatin 20 mg tablet 20 mg PO .DAILY@199905/18/18 05/20/24 History cholecalciferol (vitamin D3) 50 50 mcg PO .DAILY@79909/04/19 05/20/24 History mcg (2,000 unit) capsule (Vitamin D3) pantoprazole 40 mg tablet,delayed 40 mg PO .DAILY@79902/18/23 05/20/24 History release empagliflozin 25 mg tablet 25 mg PO .DAILY@79903/26/23 05/20/24 History (Jardiance) furosemide 40 mg tablet (Lasix) 20 mg PO .DAILY@ 199903/26/23 05/20/24 History melatonin 3 mg disintegrating 3 mg PO .DAILY@199903/26/23 05/20/24 History tablet multivitamin (Daily-Lala tablet) 1 tab PO .DAILY @79903/26/23 05/20/24 History potassium chloride 10 mEq 10 meq PO .[id number],199903/26/23 05/20/24 History tablet,extended release(part/cryst) clopidogrel 75 mg tablet 75 mg PO .DAILY @79910/22/23 05/20/24 History metoprolol tartrate 25 mg tablet 12.5 mg PO .DAILY@79910/22/23 05/20/24 History nystatin 100,000 unit/gram topical 1 applic topical .DAILY@10/22/23 05/20/24 History cream quetiapine 25 mg tablet (Seroquel) 25 mg PO .DAILY@79905/17/2425 History furosemide 40 mg tablet (Lasix) 40 mg PO .DAILY@0800 05/20/24 05/20/24 History sennosides 8.6 mg-docusate sodium 1 tab-cap PO DAILY PRN Constipation 05/20/24 05/20/24 History 50 mg tablet (Senna with Docusate Sodium) Past Med/Surg History Problem List (Updated 05/20/24 @ 14:20 by Enio Bailey DO) Weakness (Acute) Acute alteration in mental status (Acute) Acute pyelonephritis (Acute) Elevated WBC count (Acute) Elevated lactic acid level (Acute) Acute UTI (Acute) Confusion (Acute) Abdominal distension L5 vertebral fracture Cellulitis Cognitive impairment (Acute) Morbid obesity with BMI of 40.0-44.9, adult Self-care deficit Obstructive sleep apnea DVT (deep venous thrombosis) (Acute) DJD of shoulder (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) Sacral wound Diabetes (Chronic) NIDDM Heart disease (Chronic) CAD-1 stent Encounter for pre-operative examination Persistent atrial fibrillation CAD (coronary artery disease) History of right hip replacement Lymphedema (Chronic) Chronic venous insufficiency (Chronic) Venous stasis ulcer (Acute) Arthritis of left hip Hip bursitis, left Hypertension Medical History Sepsis Urinary tract infection Cellulitis of lower extremity Diastolic heart failure CAD (coronary artery disease) s/p BMS to RCA in 1997 IBS (irritable bowel syndrome) Chronic obstructive pulmonary disease controlled w/ inhaler Sleep apnea CPAP- not currently using due to worries about safety after recall, to speak w/ about Osteoarthritis Diabetes mellitus, type 2 NIDDM- no longer taking metformin due to bowel issues per pt Hearing deficit [place] Hyperlipidemia Atrial fibrillation dx 1 year ago - on warfarin - follows dr. ruiz needs cardioversion and had cardioversion x 2 about a year ago 09/22/21- last visit [facility] about 6 mos ago, states is due for another visit Pilonidal cyst Depression Obesity Anemia Migraines Myocardial infarction 1997 Chronic GERD Surgical History History of heart artery stent 1997 - [place] - 1 stent placed - hospital in [place], [place] reports had another cath early in [place] - no stents/angioplasty now follows w/ dr ruiz- 6 mos since last visit History of cataract surgery right and left History of total hip arthroplasty RT History of total shoulder replacement BL History of esophagogastroduodenoscopy (EGD) H/O colonoscopy Hx laparoscopic cholecystectomy Family History Brother Family history of diabetes mellitus X2 Social History Smoking Status: Never smoker Tobacco Type: Cigarettes Second Hand Exposure: No; Do You Dip or Chew Tobacco: No; Hx Alcohol Use: No Hx Substance Use: No Preferred Language: Maltese Communication Ability: Effective Steam Turbine Assembler Required: No Beliefs That Will Affect Care: None Current Living Situation: Assisted Feels Safe at Home: Yes Assistive Devices: Walker Physical Exam Physical Exam: General: Oriented to name only. No acute distress. Poor historian HEENT: Atraumatic, normocephalic. Vision and hearing grossly intact Pulm: CTAB A&P. -wheezes, -rales, -rhonchi. Symmetrical chest rise. No increased work of breathing. No respiratory distress. Cardiac: Regular, tachycardic, soft systolic murmur. Radial pulses intact and symmetrical. Abdominal: Tender to palpation at the left lower quadrant. Minimal right lower quadrant tenderness to palpation. No upper quadrant tenderness no rebound/guarding. Nondistended. Soft. : Excoriations of the groin with satellite lesions. Unable to examine skin of buttock due to severe pain on attempted role, further skin exam pending x-ray to evaluate for hip fracture Extremities: Bilateral ankle edema and soft tissue swelling. Left hip with severe pain on palpation and attempted movement. Sensation to soft touch intact in ankles bilaterally, cap refill intact without deficit. Results & Data Results & Data Vital Signs (Past 12 Hours) Vital Signs Temp Pulse Pulse Resp BP BP Pulse Ox 05/20/24 11:03 103 H 16 122/71 93 05/20/24 11:02 93 05/20/24 10:18 99 H 05/20/24 10:00 97 05/20/24 10:00 37.8 C H 102 H 18 102/57 L 98 O2 Del Method 05/20/24 11:03 Room Air 05/20/24 11:02 Room Air 05/20/24 10:18 05/20/24 10:00 Room Air 05/20/24 10:00 Room Air PG Care Time/CCT Total # of Minutes Spent Total Time Spent with Patient: Total time spent is greater than 50% in coordination of care (as documented) at patient's floor/unit and/or counseling patient: Coding Level of Care Code 74704 INT INP/OBS CARE 3/75MIN Diagnoses Sepsis A41.9 Sepsis acute organ dysfunction status: with acute organ dysfunction Severe sepsis acute organ dysfunction type: unspecified Severe sepsis shock status: without septic shock Acute UTI N39.0 CAD (coronary artery disease) I25.10 Diabetes E11.9 Heart disease I51.9 Hypertension I10 Obstructive sleep apnea G47.33 Sacral wound S31.000A (1) Sepsis Sepsis acute organ dysfunction status: with acute organ dysfunction Severe sepsis acute organ dysfunction type: unspecified Severe sepsis shock status: without septic shock
[2024-05-20] MEDS: OPTIRAY 320 100ml IV ONE (13:17)
[2024-05-20] MEDS: LACTATED RINGER'S 1,000 ML IV ONE (13:44)
--- NOTE | 2024-05-20 14:05 | CT Scan Report ---
HISTORY: Sepsis. Right lower quadrant abdominal pain TECHNIQUE: Helical CT imaging of the abdomen was performed following uneventful administration of 94 mL of Optiray 320 IV contrast. Images are presented in axial, sagittal, and coronal reformats. COMPARISON: CT the abdomen pelvis without contrast dated 03/26/2023. FINDINGS: Lung Bases/Inferior Mediastinum: Atelectasis at the lung bases. Coronary artery calcifications. Liver: [Unremarkable] Gallbladder: Surgically absent. Spleen: [Unremarkable] Adrenals: [Unremarkable] Pancreas: [Unremarkable] Kidneys: Focal area of decreased enhancement involving the superior pole of the left kidney favoring pyelonephritis. Kidneys are otherwise unremarkable. The area of hypoenhancementMeasuring 4.5 x 3.4 cm. Stomach/Bowel: Distal esophagus, stomach, duodenum are unremarkable. Small bowel loops are normal in caliber. The colon is normal in caliber. The appendix is not identified. Lymph nodes: [Unremarkable] Vasculature: No abdominal aortic aneurysm. Moderate atherosclerotic vascular disease. Pelvis: Evaluation of the pelvis is compromised by streak artifact from right hip arthroplasty. Asymmetric wall thickening along the right aspect of the urinary bladder on series 2 image 69. Prostate is unremarkable. Soft Tissues: Small fat-containing umbilical hernia. The soft tissues of the body wall are unremarkable. Bones: [Right hip arthroplasty. Severe left hip arthrosis.Severe degenerative spondylosis with severe multilevel central canal and neural foraminal stenosis. IMPRESSION: * Hypoenhancement involving the superior pole of the left kidney with mild adjacent inflammation suggesting acute pyelonephritis. Renal infarct could have a similar appearance, but is thought to be less likely. There is no fluid collection or abscess. Recommend correlation with urinalysis. * Mild asymmetric wall thickening along the right aspect of the urinary bladder. Urology consultation is recommended. * Severe degenerative changes of the spine with severe multilevel central canal and neuroforaminal stenosis. * Appendix is not identified. * Numerous additional chronic and/or incidental findings as detailed above. Electronically signed by Kahlil Rai 05-20-2024 2:04 PM
[2024-05-20] MEDS: CEFEPIME 2000MG 2,000 MG/20 ML SYR IV SCH ×2 (14:21→22:38)
[2024-05-20] MEDS: NYSTATIN POWDER 15GM BTL EXT PRN (14:43)
--- NOTE | 2024-05-20 15:20 | XRay Report ---
EXAMINATION: X-ray femur left 2 view routine CLINICAL HISTORY: Left femur pain PRIORS: None TECHNIQUE: Multiple views femur. FINDINGS: Motion artifact degrades image quality. Mild to moderate osseous demineralization noted. Huxg-ab-[id number] degenerative change of the left hip noted with subchondral cystic changes of the acetabulum and femoral head. No femoral head flattening. No displaced fracture, allowing for limitations of the study. No radiopaque foreign body. No subcutaneous gas or soft tissue swelling. IMPRESSION: Dvqd-ep-[id number] degenerative change of the left hip. Electronically signed by Carmen Oconnor 05-20-2024 3:20 PM
--- NOTE | 2024-05-20 15:21 | XRay Report ---
EXAMINATION: X-ray pelvis 1-2 views CLINICAL HISTORY: Severe pain femur PRIORS: CT pelvis today TECHNIQUE: 3 views pelvis FINDINGS: Mild to moderate osseous demineralization noted. Gmje-zl-avlq degenerative change of the left hip with no femoral head collapse or fracture. Subchondral cystic changes. Obturator ring intact. No soft tissue abnormality. Right hip arthroplasty present. IMPRESSION: Qeud-ag-hlue degenerative change of the left hip. Electronically signed by Carmen Oconnor 05-20-2024 3:20 PM
[2024-05-20] MEDS: LACTATED RINGER'S 500 ML IV ONE ×2 (15:33→19:41)
[2024-05-20] MEDS ORDERED: ACETAMINOPHEN 325 MG TAB PO PRN ×2 (17:14→18:04)
[2024-05-20] MEDS ORDERED: MoRPHine SULFATE 4 MG/ML 1 ML CARP\\VIAL IV PRN (17:14)
[2024-05-20] MEDS ORDERED: DEXTROSE 50% 50 ML SYRINGE IV PRN (18:04)
[2024-05-20] MEDS ORDERED: ONDANSETRON INJ 2 MG/ML 2 ML VIAL IV PRN (18:04)
[2024-05-20] MEDS ORDERED: DOCUSATE SODIUM/SENNA 50/8.6MG TAB PO PRN (18:04)
[2024-05-20] MEDS ORDERED: CARBOHYDRATES FOR HYPOGLYCEMIA PO PRN (18:04)
[2024-05-20] MEDS ORDERED: GLUCOSE 10 TAB/TUBE PO PRN (18:04)
[2024-05-20] MEDS ORDERED: POLYETHYLENE (MIRALAX) 17 GM PACK PO PRN (18:04)
[2024-05-20] MEDS ORDERED: GLUCOSE 40% GEL 15 GM TUBE PO PRN (18:04)
[2024-05-20] MEDS ORDERED: GLUCAGON FOR INJ 1 MG VIAL SQ PRN (18:04)
[2024-05-20] MEDS: ACETAMINOPHEN 1,000 MG/100 ML VIAL IV STA (18:17)
[2024-05-20] MEDS: LACTATED RINGER'S 1,000 ML IV SCH (18:18)
[2024-05-20] MEDS: ACETAMINOPHEN 1000 MG/100 ML IV IV ONE (18:35)
[2024-05-20] MEDS ORDERED: ENOXAPARIN INJ 40 MG/0.4 ML SYR SQ SCH (19:00)
[2024-05-20] MEDS: METOPROLOL TARTRATE 1 MG/ML VIAL IV STA (19:25)
[2024-05-20] MEDS: MAGNESIUM SULFATE / D5W 1 GM/100 ML BAG IV ONE (19:25)
[2024-05-20] MEDS: HEPARIN 25000 UNIT/500 ML D5W 25,000 UNITS/500 ML BAG IV SCH (19:35)
[2024-05-20] MEDS: DAPTOmycin 600 MG in SYRINGE 0 ML IV SCH (19:37)
[2024-05-20] MEDS: HEPARIN SOD (PORCINE) 1000 UNIT/ML IV ONE (19:44)
[2024-05-20] MEDS: ASPIRIN 81 MG ECTAB PO SCH (19:45)
[2024-05-20] MEDS: CLOPIDOGREL BISULFATE 75 MG TAB PO SCH (19:46)
[2024-05-20] MEDS: PANTOprazole 40 MG TAB PO SCH (19:46)
[2024-05-20] MEDS: QUEtiapine FUMARATE 25 MG TABLET PO SCH (19:51)
[2024-05-20] MEDS: INSULIN ASPART PER UNIT CHARGE SC SCH (20:31)
[2024-05-20] MEDS ORDERED: ROSUVASTATIN CALCIUM 20 MG TAB PO SCH (21:00)
[2024-05-20] MEDS: POTASSIUM CHLORIDE 10 MEQ TABCR PO SCH (21:19)
[2024-05-20] MEDS: LANTUS PER UNIT CHARGE SQ SCH (21:23)
[2024-05-20] MEDS: METOPROLOL SUCC 25MG EXT REL TAB PO SCH (21:23)
[2024-05-20] MEDS: DOXAZOSIN MESYLATE 1 MG TAB PO SCH (21:24)
[2024-05-20] MEDS: NYSTATIN CR 15 GM TUBE EXT SCH (21:25)
[2024-05-20] MEDS: FOLIC ACID 1 MG TAB PO SCH (21:25)
[2024-05-20] MEDS: METOPROLOL TARTRATE 25 MG TAB PO SCH (22:31)
[2024-05-20] MEDS: Heparin IV Adult Wt-Based Standard w/ INITIAL Bolus Protocol IV SCH (22:39)
[2024-05-21 02:30] LABS: ANTI-Xa, UFH(UnfractionatedHep 0.74 IU/ml (0.3-0.7)
[2024-05-21] MEDS: MULTIVITAMIN TAB PO SCH (08:26)
[2024-05-21] MEDS: CHOLECALCIFEROL 25 MCG (1000 UNITS) TAB PO SCH (08:26)
[2024-05-21 09:24] LABS: ANTI-Xa, UFH(UnfractionatedHep 0.37 IU/ml (0.3-0.7)
--- NOTE | 2024-05-21 09:26 | Hospitalist Progress Note ---
Date of Service May 21, 2024 Assessment & Plan (1) Sepsis: (2) Acute UTI: (3) CAD (coronary artery disease): (4) Diabetes: (5) Heart disease: (6) Hypertension: (7) Obstructive sleep apnea: (8) Sacral wound: Plan UTI // Pyelonephritis // Sepsis Delirium - AMS at time of admission likely multifactorial related to infection and dehydration; improved today - Lactate at the time of admission 2.5 -> 2.6 and after ~ 3L IVF administration and abx, am lactate now at 1.5 - Leukocytosis of 12 at time of admission also improved at 10 in am labs - Blood culture and U/Cx pending; has hx of Citrobacter that was resistant to Rocephin - Continue Cefepime and Daptomycin given positive MRSA nares in the setting of known pressure ulcer Can narrow pending culture results, but given initial presentation, will maintain broad coverage until results available - Still awaiting callback from [facility] given concern for renal infarct (L) LE DVT - Swelling and calf tenderness noted on exam - Had similar episode of DVT in (L) LE and has been off Warfarin for ~1 year - Doppler showing DVT within the deep duplicated left superficial femoral vein. No other DVT seen at the left lower extremity. - Currently on Heparin drip due to concern of renal infarct at time of admission - Will discuss initiating DOAC after discharge with daughter as mentioned below. Superficial Pressure Ulcer - Wound care consulted (L) hip/femur pain - XR w/o evidence of fracture or dislocation - Hx of prosthesis - Per PCP, patient was recently referred to ortho and seen on 03/21/24 due to severe (L) hip DJD, and were planning for an injection but ?no surgical intervention - Not c/o pain today but has not moved much - Tylenol for pain control CAD // Hx PCI - Continue DAPT and Metoprolol A-fib - Currently NSR w/ rates in 80s - Discussed with patient's PCP (Dr. Burgos) who stated that he was on Warfarin until 04/28/23 where it was discontinued due to difficulty following up with labs for monitoring; no known hx of bleeding Consider discussing risks/benefits of initiating DOAC with daughter MAMI - Home CPAP DM-II - Weight-based basal bolus while admitted - Goal BSG [id number] - Type II DM/heart healthy diet - Glucose checks AC/at bedtime - Jardiance held. Due to his recurrent UTIs would discontinue this on discharge Diet: Heart healthy, DM 2 Disposition: From [facility]; PT/OT to determine needs CODE STATUS: DNR/DNI, confirmed with family at time of admission Diet: Type II DM, heart healthy Admission and Anticipated Discharge Date Admission Date: May 20, 2024 Supervising Physician Co-Signing Physician Notes ATTESTATION I also saw the patient and confirmed siddiqi portions of the history and exam. I agree with the impression and plan in the resident documentation, and as summarized below. Patient is seen this morning on the floor. He has no new complaints. His overall sensorium has improved. EXAM 116/67, 79, 20, 36.7, 97% room air heart irregularly irregular Respirations nonlabored DATA Labs labs demonstrated mild leukocytosis of 10.81. Chemistries demonstrate sodium 137, potassium 3.7, BUN 14, creatinine 0.91. Imaging Ultrasound of the left lower extremity shows a possibly duplicated left superficial femoral vein. There is a noted DVT of the deeper left superficial femoral vein. Micro Urine culture collected 05/20/2024 preliminary Klebsiella. IMPRESSION & PLAN sepsis, presumed urinary source atrial fibrillation, not on systemic anticoagulation lower extremity DVT Overall, clinically improving Continue heparin gtt for now; will reach out to facility to see why warfarin was discontinued ( question fall risk?) in reviewing records in the EMR, patient has a previous history of DVT in the same lower extremity as well as a subsequent pulmonary embolism consideration for a DOAC at that time, but actually elected to continue warfarin since there was no way to monitor compliance with the DOAC when he was living at home now that he is in a facility, a DOAC would be a reasonable consideration since therapy monitoring of his medication administration Continue current antibiotics pending sensitivities Additional per resident documentation Subjective Patient evaluated at bedside and found to be awake and able to answer questions/converse. No overnight events. He is oriented to person and place but not to time (although did name the current president correctly). Denies pain, fevers/chills, chest pain, SOB, or other sxs. Physical Exam Physical Exam: General: Oriented to person and place. No acute distress. Pulm: CTAB. Symmetrical chest rise. No increased work of breathing. No respiratory distress. Cardiac: RRR, no r/m/g Abdominal: Tender to palpation at the left lower quadrant and suprapubic region. Nondistended. Soft. Extremities: Bilateral ankle edema and soft tissue swelling L>R. Tenderness with palpation of b/l calves. Results & Data Results & Data Vital Signs (Past 12 Hours) Vital Signs Temp Pulse Pulse Resp BP Pulse Ox O2 Del Method 05/21/24 07:16 83 05/21/24 07:00 36.5 C 86 20 118/64 96 Room Air 05/21/24 03:19 36.8 C 79 18 109/63 97 Room Air 05/20/24 23:04 36.8 C 89 16 103/62 96 Room Air 05/20/24 21:53 99 H 18 91/58 L 94 Room Air Resident Activity Tracking Resident Involvement: Resident Care Provided Care Provided: Adult Hospital Medicine (1) Sepsis Sepsis acute organ dysfunction status: with acute organ dysfunction Severe sepsis acute organ dysfunction type: unspecified Severe sepsis shock status: without septic shock
[2024-05-21 09:28] LABS: Basophils # (auto) 0.05 K/uL (0.00-0.20); Basophils % (auto) 0.5 %; Eosinophils # (auto) 0.01 K/uL (0.00-0.50); Eosinophils % (auto) 0.1 %; Hemoglobin 14.5 g/dl (14.0-18.0); Immature Granulocytes # (auto) 0.05 K/uL (0.01-0.20); Immature Granulocytes % (auto) 0.5 %; Lymphocytes # (auto) 0.51 K/uL (1.20-3.40); Lymphocytes % (auto) 4.7 %; Mean Corpuscular Hemoglobin 31.1 pg (25.0-34.0); Mean Corpuscular Hgb Conc 34.5 g/dL (32.0-36.0); Mean Corpuscular Volume 90.1 fL (80.0-100.0); Mean Platelet Volume 10.9 fL (9.4-12.4); Monocytes # (auto) 1.07 K/uL (0.11-0.59); Monocytes % (auto) 9.9 %; Neutrophils # (auto) 9.12 K/uL (1.40-6.50); Neutrophils % (auto) 84.3 %; Platelet Count 119 K/uL (130-400); RDW Coefficient of Variation 14.3 % (11.5-14.5); RDW Standard Deviation 47.4 fL (36.4-46.3); Red Blood Count 4.66 M/uL (4.70-6.10); White Blood Count 10.81 K/ul (4.8-10.8)
[2024-05-21 09:45] LABS: BUN Creatinine Ratio 15.4 (10-20); Calcium 8.3 mg/dl (8.6-10.3); Creatinine Clr Calc Pharmacy 87.5 ml/min; Potassium 3.7 mmol/L (3.5-5.1)
--- NOTE | 2024-05-21 12:09 | Ultrasound Report ---
LEFT LOWER EXTREMITY VENOUS DOPPLER HISTORY: swelling w/ calf tenderness COMPARISON STUDY: 04/18/2023 FINDINGS: There is a possible duplicated left superficial femoral vein. There is DVT at the deeper le ft superficial femoral vein. No other DVT seen at the left lower extremity. IMPRESSION: DVT within the deep duplicated left superficial femoral vein. No other DVT seen at the le ft lower extremity. . ACT 112: Negative or not required by law. Electronically signed by: Santo Painter M.D. 05/21/2024 12:07 PM
[2024-05-21] MEDS: MoRPHine SULFATE 2 MG/ML CARP IV PRN (13:19)
--- NOTE | 2024-05-21 18:14 | Electrocardiogram Report ---
Test Reason : Blood Pressure : */* mmHG Vent. Rate : 107 BPM Atrial Rate : 107 BPM P-R Int : 180 ms QRS Dur : 84 ms QT Int : 334 ms P-R-T Axes : 60 77 55 degrees QTcB Int : 445 ms Sinus tachycardia Low voltage QRS Nonspecific ST abnormality Abnormal ECG When compared with ECG of 14-Dec-2023 14:33, Premature ventricular complexes are no longer Present Nonspecific T wave abnormality, worse in Inferior leads Nonspecific T wave abnormality now evident in Lateral leads Confirmed by Kristopher Rocha ([id number]) on 05/21/2024 6:13:53 PM Referred By: [facility] Confirmed By: Kristopher Rocha
--- NOTE | 2024-05-21 18:14 | Electrocardiogram Report ---
Test Reason : Blood Pressure : */* mmHG Vent. Rate : 133 BPM Atrial Rate : * BPM P-R Int : * ms QRS Dur : 66 ms QT Int : 374 ms P-R-T Axes : * 87 77 degrees QTcB Int : 556 ms Sinus tachycardia Nonspecific ST abnormality Abnormal ECG When compared with ECG of 20-May-2024 09:44, (unconfirmed) Minimal criteria for Inferior infarct are no longer Present ST now depressed in Anterior leads Nonspecific T wave abnormality no longer evident in Inferior leads Nonspecific T wave abnormality no longer evident in Lateral leads Confirmed by Kristopher Rocha ([id number]) on 05/21/2024 6:14:19 PM Referred By: [facility] Confirmed By: Kristopher Rocha
[2024-05-22] MEDS: METOPROLOL TARTRATE 1 MG/ML VIAL IV PRN (06:13)
[2024-05-22 06:32] LABS: Basophils # (auto) 0.05 K/uL (0.00-0.20); Basophils % (auto) 0.5 %; Eosinophils # (auto) 0.14 K/uL (0.00-0.50); Eosinophils % (auto) 1.5 %; Hematocrit (blood only) 42.3 % (42.0-52.0); Hemoglobin 14.9 g/dl (14.0-18.0); Immature Granulocytes # (auto) 0.08 K/uL (0.01-0.20); Immature Granulocytes % (auto) 0.9 %; Lymphocytes # (auto) 0.79 K/uL (1.20-3.40); Lymphocytes % (auto) 8.5 %; Mean Corpuscular Hemoglobin 30.8 pg (25.0-34.0); Mean Corpuscular Hgb Conc 35.2 g/dL (32.0-36.0); Mean Corpuscular Volume 87.6 fL (80.0-100.0); Mean Platelet Volume 10.5 fL (9.4-12.4); Monocytes # (auto) 1.52 K/uL (0.11-0.59); Monocytes % (auto) 16.3 %; Neutrophils # (auto) 6.74 K/uL (1.40-6.50); Neutrophils % (auto) 72.3 %; Platelet Count 122 K/uL (130-400); RDW Standard Deviation 45.1 fL (36.4-46.3); Red Blood Count 4.83 M/uL (4.70-6.10); White Blood Count 9.32 K/ul (4.8-10.8)
[2024-05-22 06:59] LABS: BUN Creatinine Ratio 18.9 (10-20); Calcium 8.2 mg/dl (8.6-10.3); Creatinine Clr Calc Pharmacy 108.3 ml/min; Potassium 3.5 mmol/L (3.5-5.1)
[2024-05-22 07:00] LABS: ANTI-Xa, UFH(UnfractionatedHep 0.33 IU/ml (0.3-0.7)
[2024-05-22] MEDS: LACTATED RINGER'S 1,000 ML IV SCH (09:16)
--- NOTE | 2024-05-22 10:29 | Hospitalist Progress Note ---
Date of Service May 22, 2024 Assessment & Plan (1) Sepsis: (2) Acute UTI: (3) CAD (coronary artery disease): (4) Diabetes: (5) Heart disease: (6) Hypertension: (7) Obstructive sleep apnea: (8) Sacral wound: Plan UTI // Pyelonephritis // Sepsis Delirium - AMS at time of admission likely multifactorial related to infection and dehydration; improved today - Lactate at the time of admission 2.5 -> 2.6 and after ~ 3L IVF administration and abx at 1.5 - Leukocytosis of 12 at time of admission also improved at 9.3 in am labs - Blood culture and U/Cx pending; has hx of Citrobacter that was resistant to Rocephin * Blood cultures showed no growth after 24h, urine cultures grew Klebsiella pneumoniae - Continue Cefepime and Daptomycin given positive MRSA nares in the setting of known pressure ulcer Can narrow pending culture results, but given initial presentation, will maintain broad coverage until results available - Still awaiting callback from [facility] given concern for renal infarct (L) LE DVT - Swelling and calf tenderness noted on exam - Had similar episode of DVT in (L) LE and has been off Warfarin for ~1 year - Doppler showing DVT within the deep duplicated left superficial femoral vein. No other DVT seen at the left lower extremity. - Currently on Heparin drip due to concern of renal infarct at time of admission - Will discuss initiating DOAC after discharge with daughter as mentioned below. Superficial Pressure Ulcer - Wound care consulted (L) hip/femur pain - XR w/o evidence of fracture or dislocation - Hx of prosthesis - Per PCP, patient was recently referred to ortho and seen on 03/21/24 due to severe (L) hip DJD, and were planning for an injection but ?no surgical intervention - Not c/o pain today but has not moved much - Tylenol for pain control CAD // Hx PCI - Continue DAPT and Metoprolol A-fib - Currently NSR w/ rates in 80s - Discussed with patient's PCP (Dr. Burgos) who stated that he was on Warfarin until 04/28/23 where it was discontinued due to difficulty following up with labs for monitoring; no known hx of bleeding Consider discussing risks/benefits of initiating DOAC with daughter MAMI - Home CPAP DM-II - Weight-based basal bolus while admitted - Goal BSG [id number] - Type II DM/heart healthy diet - Glucose checks AC/at bedtime - Jardiance held. Due to his recurrent UTIs would discontinue this on discharge Diet: Heart healthy, DM 2 Disposition: From [facility]; PT/OT to determine needs CODE STATUS: DNR/DNI, confirmed with family at time of admission Diet: Type II DM, heart healthy Admission and Anticipated Discharge Date Admission Date: May 20, 2024 Supervising Physician Co-Signing Physician Notes ATTESTATION I also saw the patient and completed a history and exam . I agree with the impression and plan in the medical student and resident documentation, and as summarized below. Patient is much more awake and alert this morning. Some repetitive phrases consistent with his baseline dementia. 94/62, 103, 23 heart irregularly irregular Respirations nonlabored DATA Labs WBC 9.32 HgB 14.9 Sodium 136, sodium 3.5 Imaging Ultrasound of the left lower extremity shows a possibly duplicated left superficial femoral vein. There is a noted DVT of the deeper left superficial femoral vein. Micro Urine culture collected 05/20/2024 shows two species of Klebsiella. IMPRESSION & PLAN sepsis, presumed urinary source atrial fibrillation, with RVR at present lower extremity DVT Clinically, he looks and feels better In a-fib with RVR this morning; will try fluid bolus as BP precludes beta blockers. I suspect low BP is more rate-related output than reflective of infectious etiology Discontinue heparin GTT and transition to DOAC Will monitor heart rate; if continues, will need to consider alternatives for rate control Additional per resident documentation Subjective Patient evaluated at bedside and found to be awake and able to answer questions/converse. No overnight events. He reported no pain, but endorsed nonspecific discomfort. He stated he has been "farting a lot." Physical Exam Physical Exam: General: Oriented to person and place. No acute distress. Pulm: CTAB. Symmetrical chest rise. No increased work of breathing. No respiratory distress. Cardiac: Irregular, no r/m/g Abdominal: No tenderness to palpation. Nondistended. Soft. Extremities: Bilateral ankle edema and soft tissue swelling, L > R. Results & Data Results & Data Vital Signs (Past 12 Hours) Vital Signs Temp Pulse Pulse Resp BP BP Pulse Ox 05/22/24 07:43 36.8 C 117 H 20 99/67 L 94 05/22/24 06:30 116 H 94/60 L 05/22/24 06:13 145 H 102/81 05/22/24 02:50 36.4 C L 83 18 130/67 95 05/21/24 23:13 36.9 C 84 18 115/63 94 05/21/24 20:00 37.0 C 85 18 129/65 94 O2 Del Method 05/22/24 07:43 Room Air 05/22/24 06:30 05/22/24 06:13 05/22/24 02:50 Room Air 05/21/24 23:13 Room Air 05/21/24 20:00 Room Air Resident Activity Tracking Resident Involvement: Resident Care Provided Care Provided: Adult Hospital Medicine Resident Supervision Co-Signing Physician Notes Resident Attestation I was personally present during medical student and patient encounter and independently interviewed and examined the patient and verified the siddiqi history and physical, reviewed labs and image studies, discussed the case with Nohemi ARCHULETA), and agree with the above mentioned findings and care plan. (1) Sepsis Sepsis acute organ dysfunction status: with acute organ dysfunction Severe sepsis acute organ dysfunction type: unspecified Severe sepsis shock status: without septic shock
[2024-05-22] MEDS: APIXABAN 5 MG TABLET PO SCH (21:05)
[2024-05-23 06:21] LABS: Basophils # (auto) 0.04 K/uL (0.00-0.20); Basophils % (auto) 0.4 %; Eosinophils # (auto) 0.27 K/uL (0.00-0.50); Hematocrit (blood only) 42.3 % (42.0-52.0); Immature Granulocytes # (auto) 0.04 K/uL (0.01-0.20); Immature Granulocytes % (auto) 0.4 %; Lymphocytes # (auto) 0.67 K/uL (1.20-3.40); Lymphocytes % (auto) 7.5 %; Mean Corpuscular Hemoglobin 31.1 pg (25.0-34.0); Mean Corpuscular Hgb Conc 35.5 g/dL (32.0-36.0); Mean Corpuscular Volume 87.6 fL (80.0-100.0); Mean Platelet Volume 10.7 fL (9.4-12.4); Monocytes # (auto) 1.28 K/uL (0.11-0.59); Monocytes % (auto) 14.3 %; Neutrophils # (auto) 6.66 K/uL (1.40-6.50); Neutrophils % (auto) 74.4 %; Platelet Count 153 K/uL (130-400); RDW Coefficient of Variation 13.6 % (11.5-14.5); Red Blood Count 4.83 M/uL (4.70-6.10); White Blood Count 8.96 K/ul (4.8-10.8)
[2024-05-23 06:24] LABS: BUN Creatinine Ratio 21.1 (10-20); Calcium 8.1 mg/dl (8.6-10.3); Creatinine Clr Calc Pharmacy 112.8 ml/min; Potassium 3.9 mmol/L (3.5-5.1)
[2024-05-23 06:48] LABS: ANTI-Xa, UFH(UnfractionatedHep 0.55 IU/ml (0.3-0.7)
--- NOTE | 2024-05-23 07:45 | Hospitalist Progress Note ---
Date of Service May 23, 2024 Assessment & Plan (1) Sepsis: (2) Acute UTI: (3) CAD (coronary artery disease): (4) Diabetes: (5) Heart disease: (6) Hypertension: (7) Obstructive sleep apnea: (8) Sacral wound: Plan A-fib - Occasionally tachy in the 150s - Repleted magnesium, continuing home metoprolol - Metoprolol increased from 12.5mg to 25mg - Discussed with patient's PCP (Dr. Burgos) who stated that he was on Warfarin until 04/28/23 where it was discontinued due to difficulty following up with labs for monitoring; no known hx of bleeding UTI // Pyelonephritis // Sepsis Delirium - AMS at time of admission likely multifactorial related to infection and dehydration; back to baseline - Lactate at the time of admission 2.5 -> 2.6 and after ~ 3L IVF administration and abx at 1.5 - Leukocytosis of 12 at time of admission also improved - Initial abx Cefepime and Daptomycin given positive MRSA nares in the setting of known pressure ulcer Urine culture showed menard-sensitive Klebsiella pneumoniae (indeterminate sensitivity to ampicillin/sulbactam and nitrofurantoin) abx changed to trimethoprim/sulfamethoxazole. plan for 14 day course, repeat BMP in 7 days (outpatient) to monitor kidney function (L) LE DVT - Swelling and calf tenderness noted on exam - Had similar episode of DVT in (L) LE and has been off Warfarin for ~1 year - Doppler showing DVT within the deep duplicated left superficial femoral vein. No other DVT seen at the left lower extremity. - Started Eliquis 10mg PO BID Superficial Pressure Ulcer - Wound care consulted (L) hip/femur pain - XR w/o evidence of fracture or dislocation - Hx of prosthesis - Per PCP, patient was recently referred to ortho and seen on 03/21/24 due to severe (L) hip DJD, and were planning for an injection but ?no surgical intervention - Continues to report leg pain - Tylenol for pain control CAD // Hx PCI - Continue DAPT and Metoprolol MAMI - Home CPAP DM-II - Weight-based basal bolus while admitted - Goal BSG [id number] - Type II DM/heart healthy diet - Glucose checks AC/at bedtime - Jardiance held. Due to his recurrent UTIs would discontinue this on discharge Diet: Heart healthy, DM 2 Disposition: From [facility]; PT/OT to determine needs CODE STATUS: DNR/DNI, confirmed with family at time of admission Diet: Type II DM, heart healthy Admission and Anticipated Discharge Date Admission Date: May 20, 2024 Supervising Physician Co-Signing Physician Notes ATTESTATION I also saw the patient and completed a history and exam . I agree with the impression and plan in the medical student and resident documentation, and as summarized below. Continues to improve from infection standpoint. HR still elevated with low-end BPs. Looking back thru his chart, various approaches to his A-fib with RVR. Last hospitalization, resolved with beta windy; earlier hospitalization resoled with loading dose of digoxin. BPs variable today, systolic low 100s to 125mmHg heart irregularly irregular, mostly > 100, high 125 while I was on the floor today Respirations nonlabored DATA Labs CBC and BMP reviewed Imaging Ultrasound of the left lower extremity shows a possibly duplicated left superficial femoral vein. There is a noted DVT of the deeper left superficial femoral vein. Micro Urine culture collected 05/20/2024 shows two species of Klebsiella. IMPRESSION & PLAN sepsis, presumed urinary source atrial fibrillation, with RVR at present lower extremity DVT Clinically, he looks and feels better If BP allows, will increase beta blockers to achieve rate around (preferentially less) than 100 Second option digoxin Continue DOAC Since we added Eliquis, I would discontinue Plavix and continue ASA (Systemic anticoagulation plus MOOKIE probably greater bleed risk without benefit) Additional per resident documentation Subjective Patient evaluated at bedside and found to be awake and able to answer questions/converse. No overnight events. He reports some residual bilateral leg pain that is unchanged from baseline. Physical Exam Physical Exam: General: Oriented to person and place. No acute distress. Pulm: CTAB. Symmetrical chest rise. No increased work of breathing. No respirato ry distress. Cardiac: Irregular, no r/m/g Abdominal: No tenderness to palpation. Nondistended. Soft. Extremities: Bilateral ankle edema and soft tissue swelling, L > R. Results & Data Results & Data Vital Signs (Past 12 Hours) Vital Signs Temp Pulse Pulse Pulse Resp BP Pulse Ox 05/23/24 07:22 113 H 05/23/24 06:00 111/66 05/23/24 02:42 36.6 C 124 H 20 106/55 L 95 05/23/24 02:00 106/57 L 05/22/24 23:09 36.7 C 119 H 17 94/78 L 95 05/22/24 20:00 104/69 O2 Del Method 05/23/24 07:22 05/23/24 06:00 05/23/24 02:42 Room Air 05/23/24 02:00 05/22/24 23:09 Room Air 05/22/24 20:00 Resident Activity Tracking Resident Involvement: Resident Care Provided Care Provided: Adult Hospital Medicine Resident Supervision Co-Signing Physician Notes Resident Attestation I was personally present during medical student and patient encounter and independently interviewed and examined the patient and verified the siddiqi history and physical, reviewed labs and image studies, discussed the case with Nohemi White (), and agree with the above mentioned findings and care plan. (1) Sepsis Sepsis acute organ dysfunction status: with acute organ dysfunction Severe sepsis acute organ dysfunction type: unspecified Severe sepsis shock status: without septic shock
[2024-05-23] MEDS: POTASSIUM CHLORIDE CRTAB 20 MEQ TABCR PO SCH (09:09)
[2024-05-23] MEDS: MAGNESIUM SULFATE / D5W 1 GM/100 ML BAG IV SCH (09:09)
[2024-05-23] MEDS: POTASSIUM CHLORIDE CRTAB 20 MEQ TABCR PO ONE (09:09)
[2024-05-23] MEDS: ACETAMINOPHEN 1,000 MG/100 ML VIAL IV PRN (09:55)
[2024-05-23] MEDS: SULFAMETHOXAZOLE/TRIMETHOPRIM DS 800/160MG TAB PO SCH (10:00)
[2024-05-23] MEDS: METOPROLOL SUCC 25MG EXT REL TAB PO SCH (20:39)
[2024-05-24] MEDS: ACETAMINOPHEN 500 MG TAB PO PRN (00:27)
[2024-05-24 06:10] LABS: Basophils # (auto) 0.04 K/uL (0.00-0.20); Basophils % (auto) 0.5 %; Eosinophils # (auto) 0.49 K/uL (0.00-0.50); Eosinophils % (auto) 6.1 %; Hematocrit (blood only) 41.6 % (42.0-52.0); Hemoglobin 14.8 g/dl (14.0-18.0); Immature Granulocytes # (auto) 0.07 K/uL (0.01-0.20); Immature Granulocytes % (auto) 0.9 %; Lymphocytes # (auto) 0.76 K/uL (1.20-3.40); Lymphocytes % (auto) 9.4 %; Mean Corpuscular Hemoglobin 31.3 pg (25.0-34.0); Mean Corpuscular Hgb Conc 35.6 g/dL (32.0-36.0); Mean Corpuscular Volume 87.9 fL (80.0-100.0); Mean Platelet Volume 10.5 fL (9.4-12.4); Monocytes # (auto) 1.18 K/uL (0.11-0.59); Monocytes % (auto) 14.6 %; Neutrophils # (auto) 5.52 K/uL (1.40-6.50); Neutrophils % (auto) 68.5 %; Platelet Count 176 K/uL (130-400); RDW Coefficient of Variation 13.8 % (11.5-14.5); RDW Standard Deviation 44.7 fL (36.4-46.3); Red Blood Count 4.73 M/uL (4.70-6.10); White Blood Count 8.06 K/ul (4.8-10.8)
[2024-05-24 06:30] LABS: BUN Creatinine Ratio 17.8 (10-20); Calcium 8.1 mg/dl (8.6-10.3); Creatinine Clr Calc Pharmacy 109.9 ml/min; Magnesium 2.1 mg/dl (1.7-2.4); Potassium 4.3 mmol/L (3.5-5.1)
--- NOTE | 2024-05-24 07:31 | Hospitalist Progress Note ---
Date of Service May 24, 2024 Assessment & Plan (1) Sepsis: (2) Acute UTI: (3) CAD (coronary artery disease): (4) Diabetes: (5) Heart disease: (6) Hypertension: (7) Obstructive sleep apnea: (8) Sacral wound: Plan A-fib - Previously occasionally tachy in the 150s, now in the 120s - Repleted magnesium, continuing home metoprolol - Metoprolol increased from 12.5mg to 25mg - Digoxin 500mcg IV single dose 05/24 pm - Discussed with patient's PCP (Dr. Burgos) who stated that he was on Warfarin until 04/28/23 where it was discontinued due to difficulty following up with labs for monitoring; no known hx of bleeding UTI // Pyelonephritis // Sepsis Delirium - AMS at time of admission likely multifactorial related to infection and dehydration; back to baseline - Lactate at the time of admission 2.5 -> 2.6 and after ~ 3L IVF administration and abx at 1.5 - Leukocytosis of 12 at time of admission also improved - Initial abx Cefepime and Daptomycin given positive MRSA nares in the setting of known pressure ulcer Urine culture showed menard-sensitive Klebsiella pneumoniae (indeterminate sensitivity to ampicillin/sulbactam and nitrofurantoin) abx changed to trimethoprim/sulfamethoxazole. plan for 14 day course, repeat BMP in 7 days (outpatient) to monitor kidney function (L) LE DVT - Swelling and calf tenderness noted on exam - Had similar episode of DVT in (L) LE and has been off Warfarin for ~1 year - Doppler showing DVT within the deep duplicated left superficial femoral vein. No other DVT seen at the left lower extremity. - Started Eliquis 10mg PO BID Superficial Pressure Ulcer - Wound care consulted (L) hip/femur pain - XR w/o evidence of fracture or dislocation - Hx of prosthesis - Per PCP, patient was recently referred to ortho and seen on 03/21/24 due to severe (L) hip DJD, and were planning for an injection but ?no surgical intervention - Continues to report leg pain - Tylenol, Voltaren gel for pain control CAD // Hx PCI - Continue DAPT and Metoprolol MAMI - Home CPAP DM-II - Weight-based basal bolus while admitted - Goal BSG [id number] - Type II DM/heart healthy diet - Glucose checks AC/at bedtime - Jardiance held. Due to his recurrent UTIs would discontinue this on discharge Diet: Heart healthy, DM 2 Disposition: From [facility]; PT/OT to determine needs CODE STATUS: DNR/DNI, confirmed with family at time of admission Diet: Type II DM, heart healthy Admission and Anticipated Discharge Date Admission Date: May 20, 2024 Supervising Physician Co-Signing Physician Notes ATTESTATION I also saw the patient and completed a history and exam . I agree with the impression and plan in the medical student and resident documentation, and as summarized below. No complaints today. Alert and talkative. Some repetitive questions. BPs still on the lower side. heart irregularly irregular, mostly > 100, high 130 while I was on the floor today Respirations nonlabored DATA Labs CBC and BMP reviewed Imaging Ultrasound of the left lower extremity shows a possibly duplicated left superficial femoral vein. There is a noted DVT of the deeper left superficial femoral vein. Micro Urine culture collected 05/20/2024 shows two species of Klebsiella. IMPRESSION & PLAN sepsis, presumed urinary source atrial fibrillation, with RVR at present lower extremity DVT Clinically, he looks and feels better. I think we are at his baseline. Unfortunately, HR still > 100 consistently and BP prohibits further beta blockade Will load with digoxin today Continue DOAC for a-fib and LE DVT Continue ASA 81 mg for CAD; discontinued Plavix this admission to avoid risk fo MOOKIE plus Eliquis Additional per resident documentation Subjective Patient evaluated at bedside and found to be awake and able to answer questions/converse, although he remains pleasantly confused. No overnight events. He reports some residual bilateral leg pain that is unchanged from baseline. He notes decreased swelling in his feet. Physical Exam Physical Exam: General: Oriented to person and place. No acute distress. Pulm: CTAB. Symmetrical chest rise. No increased work of breathing. No respiratory distress. Cardiac: Irregular, no r/m/g Abdominal: No tenderness to palpation. Nondistended. Soft. Extremities: Bilateral ankle edema and soft tissue swelling, L > R, decreasing. Results & Data Results & Data Vital Signs (Past 12 Hours) Vital Signs Temp Pulse Pulse Resp BP Pulse Ox O2 Del Method 05/24/24 03:24 36.8 C 117 H 18 103/58 L 97 Room Air 05/23/24 22:30 36.8 C 105 H 20 98/70 L 93 Room Air 05/23/24 22:00 108 H Resident Activity Tracking Resident Involvement: Resident Care Provided Care Provided: Adult Hospital Medicine Resident Supervision Co-Signing Physician Notes Resident Attestation I was personally present during medical student and patient encounter and independently interviewed and examined the patient and verified the siddiqi history and physical, reviewed labs and image studies, discussed the case with Nohemi ARCHULETA), and agree with the above mentioned findings and care plan. (1) Sepsis Sepsis acute organ dysfunction status: with acute organ dysfunction Severe sepsis acute organ dysfunction type: unspecified Severe sepsis shock status: without septic shock
[2024-05-24] MEDS: DICLOFENAC SOD 1% GEL 100 GM TUBE EXT SCH (09:21)
[2024-05-24] MEDS: DIGOXIN 500 MCG in SYRINGE 8 ML IV STA (14:48)
[2024-05-25 06:43] LABS: Basophils # (auto) 0.08 K/uL (0.00-0.20); Basophils % (auto) 0.9 %; Eosinophils # (auto) 0.61 K/uL (0.00-0.50); Eosinophils % (auto) 6.9 %; Hematocrit (blood only) 44.9 % (42.0-52.0); Hemoglobin 15.6 g/dl (14.0-18.0); Immature Granulocytes # (auto) 0.15 K/uL (0.01-0.20); Immature Granulocytes % (auto) 1.7 %; Lymphocytes # (auto) 0.88 K/uL (1.20-3.40); Mean Corpuscular Hemoglobin 30.7 pg (25.0-34.0); Mean Corpuscular Hgb Conc 34.7 g/dL (32.0-36.0); Mean Corpuscular Volume 88.4 fL (80.0-100.0); Mean Platelet Volume 10.5 fL (9.4-12.4); Monocytes % (auto) 10.2 %; Neutrophils # (auto) 6.18 K/uL (1.40-6.50); Neutrophils % (auto) 70.3 %; Platelet Count 215 K/uL (130-400); RDW Coefficient of Variation 13.7 % (11.5-14.5); RDW Standard Deviation 44.6 fL (36.4-46.3); Red Blood Count 5.08 M/uL (4.70-6.10)
--- NOTE | 2024-05-25 06:47 | Hospitalist Progress Note ---
Date of Service May 25, 2024 Assessment & Plan (1) Sepsis: (2) Acute UTI: (3) CAD (coronary artery disease): (4) Diabetes: (5) Heart disease: (6) Hypertension: (7) Obstructive sleep apnea: (8) Sacral wound: Plan A-fib - Remains in A Fib w/ RVR (110s) despite Digoxin 500 mcg Has downtrended slightly from admission - Repleted magnesium - Continuing metoprolol, though BP often limiting - Patient not actively on anticoagulation due to difficulty monitoring as outpatient - Will complete Digoxin load w/ 125 mcg Digoxin IV at 1800 and 0001. Will follow with Digoxin level at 0600 05/26. 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 No other DVT seen at the left lower extremity. - Continue Eliquis 10mg PO BID Superficial Pressure Ulcer - Wound care consulted - Considering Estevez placement for aid in wound healing (L) hip/femur pain - XR w/o evidence of fracture or dislocation - Hx of prosthesis - Per PCP, patient was recently referred to ortho and seen on 03/21/24 due to severe (L) hip DJD, and were planning for an injection but ?no surgical intervention - Continues to report leg pain - Tylenol, Voltaren gel for pain control CAD // Hx PCI - Continue DAPT and Metoprolol MAMI - Home CPAP DM-II - Weight-based basal bolus while admitted - Goal BSG [id number] - Type II DM/heart healthy diet - Glucose checks AC/at bedtime - Jardiance held. Due to his recurrent UTIs would discontinue this on discharge Diet: Heart healthy, DM 2 Disposition: From [facility]; al to return pending medical stability CODE STATUS: DNR/DNI, confirmed with family at time of admission Diet: Type II DM, heart healthy Admission and Anticipated Discharge Date Admission Date: May 20, 2024 Supervising Physician Co-Signing Physician Notes I personally examined the patient and verified siddiqi points of history and exam, discussed case, and agree with decision making and plan documented by Dr. Douglas. Patient with some improvement of heart rate on digoxin. Blood pressures remain soft. Tolerating Eliquis well. Remains on Bactrim. Patient is grossly incontinent and has multiple excoriations in groin area attempting to keep dry. When heart rates improved and blood pressure remains stable, can consider discharge back to [facility]. Subjective Patient resting comfortably in bed upon arrival, able to answer questions and converse pleasantly w/ some confusion. NAON. Patient denies pain or discomfort. He is not experiencing any abdominal or flank pain. Denies fevers or chills. He also denies chest pain, dyspnea, or palpitations. Patient is anxious to return to his assisted living facility and would like to leave the hospital. Physical Exam Physical Exam: General: Pleasant, AO x 2, NAD Pulm: Non-labored, CTAB, no wheezing/rhonchi/rales Cardiac:Irregularly irregular, tachycardic, no r/m/g Abdominal: No tenderness to palpation. Nondistended. Soft. No CVA TTP. Extremities: Bilateral ankle edema and soft tissue swelling, L > R, decreasing. Results & Data Results & Data Vital Signs (Past 12 Hours) Vital Signs Temp Pulse Pulse Resp BP Pulse Ox O2 Del Method 05/25/24 06:14 95 H 05/25/24 03:00 36.8 C 97 H 17 96/78 L 95 Room Air 05/24/24 23:00 36.7 C 113 H 16 133/76 96 Room Air 05/24/24 19:29 95/57 L 05/24/24 19:00 36.5 C 106 H 17 94 Room Air Resident Activity Tracking Resident Involvement: Resident Care Provided Care Provided: Adult Hospital Medicine (1) Sepsis Sepsis acute organ dysfunction status: with acute organ dysfunction Severe sepsis acute organ dysfunction type: unspecified Severe sepsis shock status: without septic shock
[2024-05-25 07:01] LABS: Calcium 8.6 mg/dl (8.6-10.3); Creatinine Clr Calc Pharmacy 99.3 ml/min; Potassium 4.5 mmol/L (3.5-5.1)
[2024-05-25] MEDS: DIGOXIN 125 MCG in SYRINGE 9.5 ML IV SCH (18:29)
[2024-05-26] MEDS: DIGOXIN 125 MCG in SYRINGE 9.5 ML IV SCH
--- NOTE | 2024-05-26 07:32 | Hospitalist Progress Note ---
Date of Service May 26, 2024 Assessment & Plan (1) Sepsis: (2) Acute UTI: (3) CAD (coronary artery disease): (4) Diabetes: (5) Heart disease: (6) Hypertension: (7) Obstructive sleep apnea: (8) Sacral wound: Plan A-fib - Remains in A Fib w/ RVR (110s) despite Digoxin 500 mcg Has downtrended slightly from admission - Repleted magnesium - Continuing metoprolol, though BP often limiting - Patient not actively on anticoagulation due to difficulty monitoring as outpatient - Will complete Digoxin load w/ 125 mcg Digoxin IV at 1800 and 0001. Will follow with Digoxin level at 0600 05/26. 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 No other DVT seen at the left lower extremity. - Continue Eliquis 10mg PO BID Superficial Pressure Ulcer - Wound care consulted - Considering Estevez placement for aid in wound healing (L) hip/femur pain - XR w/o evidence of fracture or dislocation - Hx of prosthesis - Per PCP, patient was recently referred to ortho and seen on 03/21/24 due to severe (L) hip DJD, and were planning for an injection but ?no surgical intervention - Continues to report leg pain - Tylenol, Voltaren gel for pain control CAD // Hx PCI - Continue DAPT and Metoprolol MAMI - Home CPAP DM-II - Weight-based basal bolus while admitted - Goal BSG [id number] - Type II DM/heart healthy diet - Glucose checks AC/at bedtime - Jardiance held. Due to his recurrent UTIs would discontinue this on discharge Diet: Heart healthy, DM 2 Disposition: From [facility]; mo to return pending medical stability CODE STATUS: DNR/DNI, confirmed with family at time of admission Diet: Type II DM, heart healthy Admission and Anticipated Discharge Date Admission Date: May 20, 2024 Subjective Patient resting comfortably in bed upon arrival, able to answer questions and converse pleasantly w/ some confusion. NAON. Patient denies pain or discomfort. He is not experiencing any abdominal or flank pain. Denies fevers or chills. He also denies chest pain, dyspnea, or palpitations. Patient is anxious to return to his assisted living facility and would like to leave the hospital. Physical Exam Physical Exam: General: Pleasant, AO x 2, NAD Pulm: Non-labored, CTAB, no wheezing/rhonchi/rales Cardiac:Irregularly irregular, tachycardic, no r/m/g Abdominal: No tenderness to palpation. Nondistended. Soft. No CVA TTP. Extremities: Bilateral ankle edema and soft tissue swelling, L > R, decreasing. Results & Data Results & Data Vital Signs (Past 12 Hours) Vital Signs Temp Pulse Pulse Resp BP Pulse Ox O2 Del Method 05/26/24 07:12 36.6 C 100 H 16 112/78 93 Room Air 05/26/24 02:52 36.6 C 107 H 18 113/73 93 Room Air 05/26/24 00:00 101 H 05/26/24 00:00 94 H 05/25/24 23:07 36.4 C L 100 H 18 105/72 96 Room Air 05/25/24 20:00 Room Air Resident Activity Tracking Resident Involvement: Resident Care Provided Care Provided: Adult Hospital Medicine (1) Sepsis Sepsis acute organ dysfunction status: with acute organ dysfunction Severe sepsis acute organ dysfunction type: unspecified Severe sepsis shock status: without septic shock
[2024-05-26 10:57] LABS: Basophils # (auto) 0.08 K/uL (0.00-0.20); Basophils % (auto) 0.7 %; Eosinophils # (auto) 0.61 K/uL (0.00-0.50); Eosinophils % (auto) 5.4 %; Hemoglobin 16.4 g/dl (14.0-18.0); Immature Granulocytes # (auto) 0.25 K/uL (0.01-0.20); Immature Granulocytes % (auto) 2.2 %; Lymphocytes # (auto) 1.04 K/uL (1.20-3.40); Lymphocytes % (auto) 9.3 %; Mean Corpuscular Hemoglobin 30.5 pg (25.0-34.0); Mean Corpuscular Hgb Conc 34.2 g/dL (32.0-36.0); Mean Corpuscular Volume 89.2 fL (80.0-100.0); Mean Platelet Volume 10.3 fL (9.4-12.4); Monocytes # (auto) 0.83 K/uL (0.11-0.59); Monocytes % (auto) 7.4 %; Platelet Count 289 K/uL (130-400); RDW Coefficient of Variation 14.1 % (11.5-14.5); RDW Standard Deviation 45.4 fL (36.4-46.3); Red Blood Count 5.38 M/uL (4.70-6.10); White Blood Count 11.21 K/ul (4.8-10.8)
[2024-05-26 11:12] LABS: BUN Creatinine Ratio 16.5 (10-20); Calcium 9.1 mg/dl (8.6-10.3); Creatinine Clr Calc Pharmacy 85.8 ml/min; Potassium 4.3 mmol/L (3.5-5.1)
[2024-05-26 11:25] VITALS: RESP 18; TEMP 98.2; O2SAT 95
--- NOTE | 2024-05-26 13:26 | Discharge Summary ---
Date of Service May 26, 2024 Admission HPI Per Admitting Provider Isma Gavin is a 73-year-old male who presents found incontinent of urine lethargic and hypotensive with fever. He is recommended for admission for confusion. History at time of bedside evaluation is limited. Patient is oriented to name only. He is not oriented to year (1976) place. He denies chest pain, chest pressure, abdominal pain (although does grimace and endorse pain in his left lower quadrant on abdominal palpation), shortness of breath, difficulty breathing, fevers, chills. He is not sure where he is and is a limited historian. He does not know his medications or if he is on a blood thinner Discussed case with pts daughter Bushra. Weakness and confusion today. Per daughter has some waxing and waning confusion but it usually able to hold a conversation with his daughter on the phone or to order food. Does not know the day of the week, generally montero snot know where he was and is often confused on the date. Does have recurring UTIs with worsened confusion. Patient does have a living will, his daughter Tricia is his surrogate decision maker and medical decision maker. Per living will he is DNR/DNI. Updated from full code, discussed this with patient who does not demonstrate capacity due to confusion at time of assessment does agree with this. Medical History: Reviewed Medications: Reviewed Surgical History: Reviewed Family history: Reviewed Allergies: Reviewed Social History: Reviewed Code Status: DNR/DNI Admission Exam Per Admitting Provider General: Oriented to name only. No acute distress. Poor historian HEENT: Atraumatic, normocephalic. Vision and hearing grossly intact Pulm: CTAB A&P. -wheezes, -rales, -rhonchi. Symmetrical chest rise. No increased work of breathing. No respiratory distress. Cardiac: Regular, tachycardic, soft systolic murmur. Radial pulses intact and symmetrical. Abdominal: Tender to palpation at the left lower quadrant. Minimal right lower quadrant tenderness to palpation. No upper quadrant tenderness no rebound/guarding. Nondistended. Soft. : Excoriations of the groin with satellite lesions. Unable to examine skin of buttock due to severe pain on attempted role, further skin exam pending x-ray to evaluate for hip fracture Extremities: Bilateral ankle edema and soft tissue swelling. Left hip with severe pain on palpation and attempted movement. Sensation to soft touch intact in ankles bilaterally, cap refill intact without deficit. Principal Diagnosis Pyelonephritis AFib RVR Discharge Exam General: Pleasant, AO x 2, NAD Pulm: Non-labored, CTAB, no wheezing/rhonchi/rales Cardiac:Irregularly irregular, tachycardic, no r/m/g Abdominal: No tenderness to palpation. Nondistended. Soft. No CVA TTP. Extremities: Bilateral ankle edema and soft tissue swelling, L > R, decreasing. : Visible skin breakdown and erythema of groin, scrotum, and penis. Estevez intact draining clear, yellow urine. Discharge Data Allergies Allergy/AdvReac Type Severity Reaction Status Date / Time No Known Allergies Allergy Verified 12/05/23 13:17 Consultations 05/20/24 12:38 ED Decision to Admit Stat Ordered Studies 05/20/24 09:40 CT head/brain wo con Stat 05/20/24 12:53 CT Abd and Pelvis [CT abd pelvis IV con only] Stat 05/21/24 10:39 US venous doppler LE LT Routine Hospital Course (1) Sepsis: (2) Acute UTI: (3) CAD (coronary artery disease): (4) Diabetes: (5) Heart disease: (6) Hypertension: (7) Obstructive sleep apnea: (8) Sacral wound: Kary Ashby is a 73M w/ PMH of cognitive impairment, MAMI, persistent A Fib, CAD, lymphedema, venous insufficiency, venous stasis ulcer, and HTN who was admitted for management of pyelonephritis and Atrial Fibrillation w/ RVR. A-fib - Patient remains in AFib w/ HR 80s-110s despite inpatient attempts at adjusting B-blockers and Digoxin load Given lack of change w/ Digoxin load will not recommend continuing at this time Rate has downtrended from admission as tachycardia likely a/w active infection - Continue Metoprolol 25 mg PO BID, patient has baseline low BP, monitor with symptoms - Magnesium levels repleted while inpatient - Patient not actively on anticoagulation due to difficulty monitoring as outpatient - Consider outpatient Cardiology visit for ongoing AFib/HR management, established patient of Dr. Chi UTI // Pyelonephritis // Sepsis Delirium - AMS at time of admission likely multifactorial related to infection and dehydration; back to baseline - Lactate elevated on admission, now resolved - Leukocytosis on admission, now resolved - Received IV Abx, now on PO Bactrim DS for Pyelonephritis treatment Recommending 14 day antibiotic course, 05/20-06/03 Additional 8 days sent to pharmacy Left Lower Extremity Blood Clot - Doppler with evidence of LLE DVT - Started on treatment dose Eliquis 10 mg PO BID for 1 week, followed by 5 mg PO BID Would recommend DOAC for DVT treatment for at least 3 months Advised long-term risk/benefit discussion on anticoagulation in setting of AFib w/ PCP Superficial Pressure Ulcer - Would care inpatient, continue as outpatient - Estevez placement for aid in wound healing (L) hip/femur pain - XR w/o evidence of fracture or dislocation - Tylenol, Voltaren gel for pain control CAD // Hx PCI - Continue DAPT and Metoprolol MAMI - Home CPAP DM-II - Discontinue home Jardiance d/t risk of UTI/Forniere's gangrene - Glucose well controlled with Glargine 7 unites BID, not requiring Aspart dosing - Continue home insuline dosing w/o additional SGLT2 - Goal BSG [id number] Diet: Heart healthy, DM 2 Disposition: From [facility]; w/ HH CODE STATUS: DNR/DNI, confirmed with family at time of admission Total Time Total Time Spent Total Time Spent (In Minutes): Total attending time 32 minutes, Tennille Jama DO Discharge Plan Discharge Items Patient Disposition: Personal Nursing Home Reason For Visit: SEPSIS,SUSPECTED UTI Discharge Diagnosis: Pyelonephritis AFib RVR Activity: Per Instructions section Non-emergency contact: Primary Care Provider Call non-emergency contact if: your symptoms worsen, your pain is not controlled and you have a fever Follow-up/Referrals: Justo Burgos DO [Primary Care Provider] - Diet: Carb Consistent or DM2 and Heart Healthy Addtl Attending Provider Instructions: Instructions to patient/longterm/home health: A-fib - Patient remains in AFib w/ HR 80s-110s despite inpatient attempts at adjusting B-blockers and Digoxin load Given lack of change w/ Digoxin load will not recommend continuing at this time Rate has downtrended from admission as tachycardia likely a/w active infection - Continue Metoprolol 25 mg PO BID, patient has baseline low BP, monitor with symptoms - Magnesium levels repleted while inpatient - Patient not actively on anticoagulation due to difficulty monitoring as outpatient - Consider outpatient Cardiology visit for ongoing AFib/HR management, established patient of Dr. Chi UTI // Pyelonephritis // Sepsis Delirium - AMS at time of admission likely multifactorial related to infection and dehydration; back to baseline - Lactate elevated on admission, now resolved - Leukocytosis on admission, now resolved - Received IV Abx, now on PO Bactrim DS for Pyelonephritis treatment Recommending 14 day antibiotic course, 05/20-06/03 Additional 8 days sent to pharmacy Left Lower Extremity Blood Clot - Doppler with evidence of LLE DVT - Started on treatment dose Eliquis 10 mg PO BID for 1 week, followed by 5 mg PO BID Would recommend DOAC for DVT treatment for at least 3 months Advised long-term risk/benefit discussion on anticoagulation in setting of AFib w/ PCP Superficial Pressure Ulcer - Would care inpatient, continue as outpatient - Estevez placement for aid in wound healing (L) hip/femur pain - XR w/o evidence of fracture or dislocation - Tylenol, Voltaren gel for pain control CAD // Hx PCI - Continue DAPT and Metoprolol MAMI - Home CPAP DM-II - Discontinue home Jardiance d/t risk of UTI/Forniere's gangrene - Glucose well controlled with Glargine 7 unites BID, not requiring Aspart dosing - Continue home insuline dosing w/o additional SGLT2 - Goal BSG [id number] Continue to maintain Estevez for urinary incontinence. Continue Nystatin powder for suspected yeast. Diet: Heart healthy, DM 2 Disposition: From [facility]; w/ HH CODE STATUS: DNR/DNI, confirmed with family at time of admission Pending Studies at Discharge: No Stand-Alone Forms: My [employer], Smoking Cessation Skilled Items Patient informed of condition?: Yes DNR: Yes Discharge Level of Care: Other Communicable Disease: No Discharge Prognosis: Stable Lines: None Urinary Catheter: Yes Medications and DC Order Prescriptions: New sulfamethoxazole-trimethoprim [Bactrim DS] 800-160 mg Tablet 1 tab PO Q12 8 Days Qty: 16 0RF metoprolol succinate 25 mg Tablet Extended Release 24 Hr 25 mg PO BID 30 Days Qty: 60 0RF Eliquis 5 mg Tablet 5 mg PO BID 30 Days Qty: 60 0RF insulin glargine [Lantus U-100 Insulin] 100 unit/mL Solution 7 unit subcut BID 30 Days Qty: 4.2 0RF Continued quetiapine [Seroquel] 25 mg tablet 25 mg PO .DAILY@0800 aspirin 81 mg Tablet,Delayed Release (Dr/Ec) 81 mg PO .DAILY @08 rosuvastatin 20 mg Tablet 20 mg PO .DAILY@1999 folic acid 1 mg Tablet 1 mg PO .DAILY @799,1999 doxazosin [Cardura] 1 mg Tablet 1 mg PO .DAILY @ 1999 cholecalciferol (vitamin D3) [Vitamin D3] 50 mcg (2,000 unit) Capsule 50 mcg PO .DAILY@08 pantoprazole 40 mg tablet,delayed release (DR/EC) 40 mg PO .DAILY@08 melatonin 3 mg Tablet,Disintegrating 3 mg PO .DAILY@1999 potassium chloride 10 mEq tablet,ER particles/crystals 10 meq PO .[id number],1999 furosemide [Lasix] 40 mg tablet 20 mg PO .DAILY@ 1999 Rx Instructions: daily at 0800 and 1999 multivitamin [Daily-Lala] Tablet 1 tab PO .DAILY @0800 clopidogrel 75 mg Tablet 75 mg PO .DAILY @799 nystatin 100,000 unit/gram Cream 1 applic TOPICAL .DAILY@799,1999 Rx Instructions: apply to scrotal area furosemide [Lasix] 40 mg Tablet 40 mg PO .DAILY@0800 sennosides-docusate sodium [Senna with Docusate Sodium] 8.6-50 mg Tablet 1 tab-cap PO DAILY PRN (Reason: Constipation) Discontinued Jardiance 25 mg tablet 25 mg PO .DAILY@0800 metoprolol tartrate 25 mg tablet 12.5 mg PO .DAILY@0800 Discharge Orders: Discharge Order (Routine); Ordered 05/26/24 Ordered By: Jaye Douglas Admission Data Admit Date/Time: 05/20/24 13:12 Attending Provider: Tennille Jama Admit Provider: Ivan Granda Primary Care Provider: Justo Burgos Other Providers: Ivan Granda; [facility] Other Interventions: Discharge Summary Assessment (RN) Last Done: 05/26/24 15:12 Supervising Physician Co-Signing Physician Notes I personally examined the patient and verified siddiqi points of history and exam, discussed case, and agree with decision making and plan documented by Dr. Douglas. Continue Bactrim DS to complete 14 days (end 06/03/24). Continue Eliquis 5 mg BID for at least 3 months for DVT, may continue thereafter for afib, advised discussion with PCP/cardiology. Estevez placed to encourage wound healing in setting of gross incontinence, continue wound care. Patient transferred back to [facility]. Resident Activity Tracking Resident Involvement: Resident Care Provided Care Provided: Adult [facility] Medicine
[2024-05-26 15:14] VITALS: BP 90/59; PULSE 111
== END 2024-05-26 19:37 | disposition home or self-care (01) | DRG 871 ==
LOC: ED 09:34 → SUATTDRO 13:12 → EDINP 13:12 → 2E 17:38

== ENCOUNTER 2024-05-29 22:28 | Inpatient (IN) ==
--- NOTE | 2024-05-30 | Emergency Department Note ---
Impression & Plan Hypotension, Groin pain, Chronic indwelling Foote catheter, Excoriation, Scrotal erythema, Pain, penile ED Provider Note ED Provider Note NAME: NINO SEAMAN AGE:73 SEX: Male : 1950 ARRIVES VIA: EMS INFORMANT: Patient ED PROVIDER(s): Lavonne Barr DO CHIEF COMPLAINT: Groin pain HPI: This is a 73-year-old male presents emerged ferment due to concern for pain in the groin. Patient states this afternoon a cream was applied to his penile area due to irritation and he had significant pain. He states pain seem to be worsening and he eventually contacted staff to come here. He denies fevers, chills, nausea, vomiting, or abdominal pain. He states by arrival here the pain had resolved despite the cream not being removed. He states he does have an indwelling Foote catheter which does seem to be draining. PAST MEDICAL HISTORY:See Below PAST SURGICAL HISTORY:See Below FAMILY HISTORY:See Below SOCIAL HISTORY:See Below HOME MEDICATIONS:See Below ALLERGIES:See Below VITALS:See Below PHYSICAL EXAMINATION: GENERAL: alert, well appearing, well nourished, no distress, non-toxic, BMI 36 EYE EXAM: normal conjunctiva, PERRL and EOM's grossly intact OROPHARYNX: no exudate, no erythema, lips, buccal mucosa, and tongue normal and mucous membranes are moist NECK: supple, no nuchal rigidity, no adenopathy, non-tender LUNGS: Clear to auscultation. Normal chest wall mechanics, no w/r/r HEART: no murmurs, S1 normal and S2 normal ABDOMEN: abdomen soft, non-tender, normo-active bowel sounds, no masses, no rebound or guarding. GENITALS: Exam performed with SARAH Roberts, nurse business office specialist at bedside, diffuse white residue from topical cream but visible erythema noted to b/l inguinal fold, penile shaft, mons pubis, and into scrotum; no crepitus; significant pain with palpation SKIN: no rashes, petechiae, orbruising UPPER EXTREMITIES: upper extremities are grossly normal. FROM, nml pulses b/l. LOWER EXTREMITIES: No pitting edema. FROM, nml pulses b/l. NEURO EXAM: Normal sensorium but odd affect, cranial nerves II-XII grossly intact, normal speech, no facial droop,nogross weakness of arms, no gross weakness of legs. Gross sensation intact. No ataxia. Vital Signs: reviewed and remarkable Differential Diagnosis: Skin irritation, excoriation, cellulitis, Mane's gangrene, yeast infection, balanitis, as well as others were considered MEDICAL DECISION MAKING: This is a 73-year-old male sent to the emergency department from [facility] with complaint for penile pain. Patient with an indwelling Foote catheter and recent admission here. Patient afebrile arrival however noted to be hypotensive. He denied dizziness, chest pain, abdominal pain, or fevers. His catheter did appear to be draining appropriately. Labs including cultures and lactic acid drawn and sent, IV established, EKG and chest x-ray performed at bedside interpreted me and patient monitored on telemetry. He was started on IV fluids given the hypotension. He was then sent for CT of the abdomen and pelvis additionally. Urine collected and sent as well. Patient is already taking Bactrim to cover prior Klebsiella which grew from his most recent urine culture. Mild leukocytosis noted, no elevation of lactic acid or procalcitonin. Patient continued to have hypotension and was given multiple liters of IV fluids. He did get greater than 30/kg to cover for possible evolving sepsis based on ABW. Patient's exam difficult to assess however he did have significant pain on exam. CT did not reveal any obvious infection, fully seen in good position. As patient is high risk for Mane's gangrene or worsening pyelo, we discussed further antibiotics and I asked urology to evaluate the patient at bedside. We discussed additional antibiotic coverage for possible balanitis or scrotal cellulitis, case discussed with the hospitalist team for additional evaluation and management. Consultation(s): 0300: Discussed with Paulino Cuellar PA-C, covering urology. He will evaluate the patient at bedside. 0400: Discussed with Dr. Palmer, [facility] hospitalist team, for additional evaluation and management. ER Treatment Provided: See below Diagnostics Interpreted By Me: -ECG: Normal sinus at 89, normal axis, normal intervals, no acute ST/T wave changes, bigeminy noted -Cardiac Monitoring: An order was placed for continuous cardiac monitoring. The monitor shows a rate of 90 with normal sinus rhythm. -Laboratory studies: As stated above and show below. -Imaging studies: ct a/p - foote seen, no subQ emphysema Triage Nursing Note Reviewed Prior/Outside Records Reviewed Critical Care: Critical care of 39 min performed to assess and manage high likelihood of life-threatening hypotension, involving labs and imaging performed with assessment to evaluate hypotension and genital infection diagnosis with frequent reassessment. This time includes bedside time, treatment discussions with patient/family/consultants, documentation time and excludes procedure time. Past Med/Surg History Problem List (Updated 05/30/24 @ 16:31 by Malcolm Vega) SIRS (systemic inflammatory response syndrome) (Acute) Sepsis Dehydration Candidal balanitis Cystitis Cellulitis of groin Pain, penile (Acute) Scrotal erythema (Acute) Excoriation (Acute) Hypotension (Acute) Chronic indwelling Foote catheter (Acute) Groin pain (Acute) Weakness (Acute) Acute alteration in mental status (Acute) Acute pyelonephritis (Acute) Elevated WBC count (Acute) Elevated lactic acid level (Acute) Acute UTI (Acute) Confusion (Acute) Abdominal distension L5 vertebral fracture Cellulitis Cognitive impairment (Acute) Morbid obesity with BMI of 40.0-44.9, adult Self-care deficit Obstructive sleep apnea DVT (deep venous thrombosis) (Acute) DJD of shoulder (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) Sacral wound Diabetes (Chronic) NIDDM Heart disease (Chronic) CAD-1 stent Encounter for pre-operative examination Persistent atrial fibrillation CAD (coronary artery disease) History of right hip replacement Lymphedema (Chronic) Chronic venous insufficiency (Chronic) Venous stasis ulcer (Acute) Arthritis of left hip Hip bursitis, left Hypertension Medical History Sepsis Urinary tract infection Cellulitis of lower extremity Diastolic heart failure CAD (coronary artery disease) s/p BMS to RCA in 1997 IBS (irritable bowel syndrome) Chronic obstructive pulmonary disease controlled w/ inhaler Sleep apnea CPAP- not currently using due to worries about safety after recall, to speak w/ about Osteoarthritis Diabetes mellitus, type 2 NIDDM- no longer taking metformin due to bowel issues per pt Hearing deficit BL [place] Hyperlipidemia Atrial fibrillation dx 1 year ago - on warfarin - follows dr. ruiz needs cardioversion and had cardioversion x 2 about a year ago 09/22/21- last visit w/ joseph about 6 mos ago, states is due for another visit Pilonidal cyst Depression Obesity Anemia Migraines Myocardial infarction 1997 Chronic GERD Surgical History History of heart artery stent 1998 - [place] - 1 stent placed - hospital in [place], [place] reports had another cath early in [facility] - no stents/angioplasty now follows w/ dr ruiz- 6 mos since last visit History of cataract surgery right and left History of total hip arthroplasty RT History of total shoulder replacement BL History of esophagogastroduodenoscopy (EGD) H/O colonoscopy Hx laparoscopic cholecystectomy Family History Brother Family history of diabetes mellitus X2 Social History Smoking Status: Never smoker Tobacco Type: Cigarettes Second Hand Exposure: No; Do You Dip or Chew Tobacco: No; Hx Alcohol Use: No Hx Substance Use: No Preferred Language: Algerian Communication Ability: Effective Golf Caddie Required: No Beliefs That Will Affect Care: None Current Living Situation: Residential Feels Safe at Home: Yes Assistive Devices: Walker and Wheelchair Allergies Allergies Allergy/AdvReac Type Severity Reaction Status Date / Time No Known Allergies Allergy Verified 05/30/24 00:03 Home Meds Home Medications Medication Instructions Recorded Confirmed aspirin 81 mg tablet,delayed 81 mg PO QAM 05/18/18 05/30/24 release doxazosin 1 mg tablet (Cardura) 1 mg PO HS 05/18/18 05/30/24 folic acid 1 mg tablet 1 mg PO BID 05/18/18 05/30/24 rosuvastatin 20 mg tablet 20 mg PO HS 05/18/18 05/30/24 cholecalciferol (vitamin D3) 50 50 mcg PO QAM 09/04/19 05/30/24 mcg (2,000 unit) capsule (Vitamin D3) pantoprazole 40 mg tablet,delayed 40 mg PO QAM 02/18/23 05/30/24 release furosemide 40 mg tablet (Lasix) 20 mg PO HS 03/26/23 05/30/24 melatonin 3 mg disintegrating 3 mg PO HS 03/26/23 05/30/24 tablet multivitamin (Daily-Lala tablet) 1 tab PO QAM 01/20/24 03/26/25 potassium chloride 10 mEq 10 meq PO TID 03/26/23 05/30/24 tablet,extended release(part/cryst) clopidogrel 75 mg tablet 75 mg PO QAM 10/22/23 05/30/24 nystatin 100,000 unit/gram topical 1 applic topical BID 10/22/23 05/30/24 cream quetiapine 25 mg tablet (Seroquel) 25 mg PO QAM 05/17/24 05/30/24 furosemide 40 mg tablet (Lasix) 40 mg PO QAM 05/20/24 05/30/24 sennosides 8.6 mg-docusate sodium 1 tab-cap PO DAILY PRN Constipation 05/20/24 05/30/24 50 mg tablet (Senna with Docusate Sodium) empagliflozin 25 mg tablet 25 mg PO QAM 05/30/24 05/30/24 (Jardiance) sulfamethoxazole 800 1 tab PO BID 05/30/24 05/30/24 mg-trimethoprim 160 mg tablet (Bactrim DS) Previous Rx's Medication Instructions Recorded apixaban 5 mg tablet (Eliquis) 5 mg PO BID 1 month #60 tabs 05/26/24 insulin glargine 100 unit/mL 7 unit (0.07 mL) subcut BID 30 05/26/24 subcutaneous solution (Lantus days #4.2 mL U-100 Insulin) metoprolol succinate 25 mg 25 mg PO BID 1 month #60 tabs 05/26/24 tablet,extended release 24 hr Results & Data (ED) Vital Signs Vital Signs - 24 hr 05/29/24 23:58 05/29/24 23:58 05/30/24 00:00 Pulse Rate 85 Pulse Rate [Apical] 80 84 Pulse Rate from SpO2 Sensor Pulse Rhythm Regular Pulse Rhythm [Apical] Regular Regular Pulse Strength [Apical] Normal Normal Respiratory Rate 18 18 18 Respiratory Effort / Characteristics Non-Labored Spontaneous Non-Labored Spontaneous Respiratory Depth Normal Normal Respiratory Pattern Regular Regular Blood Pressure Blood Pressure [Right Arm] 107/53 L Blood Pressure Mean Blood Pressure Mean [Right Arm] 71 Blood Pressure Position [Right Arm] Semi-fowlers Pulse Oximetry 97 97 97 Oxygen Delivery Method Room Air Room Air Room Air 05/30/24 00:45 05/30/24 01:30 05/30/24 02:00 Pulse Rate Pulse Rate [Apical] 93 H 88 85 Pulse Rate from SpO2 Sensor Pulse Rhythm Pulse Rhythm [Apical] Regular Regular Regular Pulse Strength [Apical] Normal Normal Normal Respiratory Rate 18 18 18 Respiratory Effort / Characteristics Non-Labored Spontaneous Non-Labored Spontaneous Non-Labored Spontaneous Respiratory Depth Normal Normal Normal Respiratory Pattern Regular Regular Regular Blood Pressure Blood Pressure [Right Arm] 115/44 L 99/46 L 104/59 L Blood Pressure Mean Blood Pressure Mean [Right Arm] 67 63 74 Blood Pressure Position [Right Arm] Semi-fowlers Semi-fowlers Semi-fowlers Pulse Oximetry 95 98 97 Oxygen Delivery Method Room Air Room Air Room Air 05/30/24 02:30 05/30/24 02:48 05/30/24 03:00 Pulse Rate 84 Pulse Rate [Apical] 82 89 Pulse Rate from SpO2 Sensor Pulse Rhythm Pulse Rhythm [Apical] Regular Pulse Strength [Apical] Normal Respiratory Rate 17 16 Respiratory Effort / Characteristics Non-Labored Spontaneous Respiratory Depth Normal Normal Respiratory Pattern Regular Blood Pressure Blood Pressure [Right Arm] 99/72 L 93/45 L Blood Pressure Mean Blood Pressure Mean [Right Arm] 81 61 Blood Pressure Position [Right Arm] Semi-fowlers Pulse Oximetry 98 95 Oxygen Delivery Method Room Air Room Air 05/30/24 03:15 05/30/24 03:30 05/30/24 03:46 Pulse Rate 88 86 Pulse Rate [Apical] 84 Pulse Rate from SpO2 Sensor 44 L Pulse Rhythm Pulse Rhythm [Apical] Pulse Strength [Apical] Respiratory Rate 16 18 16 Respiratory Effort / Characteristics Non-Labored Respiratory Depth Normal Respiratory Pattern Blood Pressure 97/50 L 90/39 L Blood Pressure [Right Arm] 103/78 Blood Pressure Mean 65 60 Blood Pressure Mean [Right Arm] 86 Blood Pressure Position [Right Arm] Pulse Oximetry 97 95 94 Oxygen Delivery Method Room Air 05/30/24 04:00 05/30/24 04:15 05/30/24 04:30 Pulse Rate 90 89 87 Pulse Rate [Apical] Pulse Rate from SpO2 Sensor 45 L 45 L 43 L Pulse Rhythm Pulse Rhythm [Apical] Pulse Strength [Apical] Respiratory Rate 19 16 19 Respiratory Effort / Characteristics Respiratory Depth Respiratory Pattern Blood Pressure 100/50 L 102/50 L 97/45 L Blood Pressure [Right Arm] Blood Pressure Mean 66 67 62 Blood Pressure Mean [Right Arm] Blood Pressure Position [Right Arm] Pulse Oximetry 94 93 94 Oxygen Delivery Method Laboratory Data 05/30/24 00:06 05/30/24 00:06 Lab Results 05/30/24 05/30/24 Range/Units 00:06 00:17 WBC 11.47 H (4.8-10.8) K/ul RBC 4.76 (4.70-6.10) M/uL Hgb 14.7 (14.0-18.0) g/dl Hct 43.2 (42.0-52.0) % MCV 90.8 (80.0-100.0) fL MCH 30.9 (25.0-34.0) pg MCHC 34.0 (32.0-36.0) g/dL RDW Std Deviation 47.8 H (36.4-46.3) fL RDW Coeff of [place] 14.4 (11.5-14.5) % Plt Count 354 (130-400) K/uL MPV 9.9 (9.4-12.4) fL Immature Gran % (Auto) 2.6 % Neut % (Auto) 67.3 % Lymph % (Auto) 14.0 % [place] % (Auto) 11.8 % Eos % (Auto) 3.2 % Baso % (Auto) 1.1 % Neut # (Auto) 7.71 H (1.40-6.50) K/uL Lymph # (Auto) 1.61 (1.20-3.40) K/uL [place] # (Auto) 1.35 H (0.11-0.59) K/uL Eos # (Auto) 0.37 (0.00-0.50) K/uL Baso # (Auto) 0.13 (0.00-0.20) K/uL Immature Gran # (Auto) 0.30 H (0.01-0.20) K/uL Sodium 136 (136-145) mmol/L Potassium 4.5 (3.5-5.1) mmol/L Chloride 101 (98-107) mmol/L Carbon Dioxide 28 (21-32) mmol/L Anion Gap 7 (3-11) BUN 26 H (6-23) mg/dl Creatinine 1.27 (0.6-1.4) mg/dl Est Cr Clr Drug Dosing 60.6 ml/min eGFR 59.28 BUN/Creatinine Ratio 20.5 H (10-20) Glucose 138 H (70-99(Fasting)) mg/dl Lactate 1.3 (0.4-2.0) mmol/L Calcium 9.2 (8.6-10.3) mg/dl Magnesium 2.2 (1.7-2.4) mg/dl Total Bilirubin 0.6 (0.2-1.0) mg/dl Direct Bilirubin 0.2 (0-0.2) mg/dl AST 35 (13-39) U/L ALT 34 (7-52) U/L Alkaline Phosphatase 76 (34-104) U/L Troponin I High Sens 5.0 (0-20) pg/ml Total Protein 6.7 (6.0-8.3) gm/dl Albumin 3.9 (3.4-5.0) gm/dl Procalcitonin 0.06 (0-0.5) ng/ml Urine Color Yellow Urine Appearance Clear (Clear) Urine pH 5.5 (4.5-7.5) Ur Specific [place] 1.008 (1.000-1.030) Urine Protein Negative (Negative) Urine Glucose (UA) 3+ H (Negative) Urine Ketones Negative (Negative) Urine Blood Negative (Negative) Urine Nitrite Negative (Negative) Urine Bilirubin Negative (Negative) Urine Urobilinogen Negative (Negative) Ur Leukocyte Esterase Negative (Negative) Administered Medications Acetaminophen (Acetaminophen 325 Mg Tab) 650 mg PO Q4H PRN PRN Reason: Pain or Fever Stop: 06/29/24 09:46 Last Admin: 05/30/24 17:11 Dose: 650 mg Documented By: DAVID Apixaban (Apixaban 5 Mg Tablet) 5 mg PO BID [facility] Stop: 06/29/24 09:46 Last Admin: 05/30/24 20:11 Dose: 5 mg Documented By: Admin: 05/30/24 10:47 Dose: 5 mg Documented By: OSS Co-signed By: DAVID Aspirin (Aspirin 81 Mg Ectab) 81 mg PO [facility] Stop: 06/29/24 09:46 Last Admin: 05/30/24 10:47 Dose: 81 mg Documented By: OSS Co-signed By: DAVID Clopidogrel Bisulfate (Clopidogrel Bisulfate 75 Mg Tab) 75 mg PO [facility] Stop: 06/29/24 09:46 Last Admin: 05/30/24 10:48 Dose: 75 mg Documented By: OSS Co-signed By: DAVID Folic Acid (Folic Acid 1 Mg Tab) 1 mg PO BID STEPHANIE Stop: 06/29/24 09:46 Last Admin: 05/30/24 20:12 Dose: 1 mg Documented By: Admin: 05/30/24 10:48 Dose: 1 mg Documented By: OSS Co-signed By: DAVID Furosemide (Furosemide 20 Mg Tab) 20 mg PO HS STEPHANIE Stop: 06/29/24 20:59 Last Admin: 05/30/24 20:12 Dose: 20 mg Documented By: REINIER Cefepime HCl (Maxipime 2000mg) 2,000 mg in 20 mls @ 5 mls/min IV Q12H STEPHANIE; Protocol Stop: 06/06/24 04:59 Last Admin: 05/30/24 17:11 Dose: 5 mls/min Documented By: DAVID Potassium Chloride/Sodium Chloride (Normal Saline W/20 Meq Kcl) 20 meq in 1,000 mls @ 80 mls/hr IV .[id number] STEPHANIE Stop: 05/31/24 17:29 Last Admin: 05/30/24 18:08 Dose: 80 mls/hr Documented By: Infusion: 05/30/24 18:08 Dose: Infused Documented By: Admin: 05/30/24 05:18 Dose: 80 mls/hr Documented By: JHONNYW Insulin Aspart (Insulin Aspart Per Unit Charge) 0 units SC ACHS STEPHANIE Stop: 06/29/24 09:46 Last Admin: 05/30/24 20:19 Dose: Not Given Documented By: Admin: 05/30/24 16:49 Dose: 2 units Documented By: OSS Co-signed By: DAVID Admin: 05/30/24 12:23 Dose: 4 units Documented By: OSS Co-signed By: DAVID Admin: 05/30/24 10:53 Dose: Not Given Documented By: OSS Insulin Glargine (Lantus Per Unit Charge) 4 units SQ BID STEPHANIE Stop: 06/29/24 09:46 Last Admin: 05/30/24 20:15 Dose: 4 units Documented By: REINIER Co-signed By: ABDI Admin: 05/30/24 10:48 Dose: 4 units Documented By: OSS Co-signed By: DAVID Melatonin (Melatonin 3 Mg Tab) 3 mg PO HS STEPHANIE Stop: 06/29/24 20:59 Last Admin: 05/30/24 20:11 Dose: 3 mg Documented By: REINIER Multivitamins (Multivitamin Tab) [facility] [place] Stop: 06/29/24 09:46 Last Admin: 05/30/24 10:49 Dose: 1 tab Documented By: OSS Co-signed By: DAVID Nystatin (Nystatin Cr 15 Gm Tube) 1 appln EXT BID [facility] Stop: 06/29/24 09:46 Last Admin: 05/30/24 20:11 Dose: 1 appln Documented By: Admin: 05/30/24 10:49 Dose: 1 appln Documented By: OSS Co-signed By: DAVID Pantoprazole Sodium (Pantoprazole 40 Mg Tab) 40 mg [facility] [place] Stop: 06/29/24 09:46 Last Admin: 05/30/24 10:49 Dose: 40 mg Documented By: OSS Co-signed By: DAVID Quetiapine Fumarate (Quetiapine Fumarate 25 Mg Tablet) 25 mg [facility] [place] Stop: 06/29/24 09:46 Last Admin: 05/30/24 10:49 Dose: 25 mg Documented By: OSS Co-signed By: DAVID Rosuvastatin Calcium (Rosuvastatin Calcium 20 Mg Tab) 20 mg PO [facility] Stop: 06/29/24 20:59 Last Admin: 05/30/24 20:12 Dose: 20 mg Documented By: REINIER Vitamin D (Cholecalciferol 25 Mcg (1000 Units) Tab) 50 mcg [facility] [place] Stop: 06/29/24 09:46 Last Admin: 05/30/24 10:48 Dose: 50 mcg Documented By: OSS Co-signed By: DAVID Discontinued Medications Sodium Chloride (Nss) 1,000 mls @ 999 mls/hr IV .Q1H1M STEPHANIE Stop: 05/30/24 01:45 Last Infusion: 05/30/24 02:32 Dose: Infused Documented By: Admin: 05/30/24 01:29 Dose: 999 mls/hr Documented By: Infusion: 05/30/24 01:19 Dose: Infused Documented By: Admin: 05/30/24 00:11 Dose: 999 mls/hr Documented By: IDRegulo Sodium Chloride (Nss) 1,000 mls @ 999 mls/hr IV .Q1H1M ONE Stop: 05/30/24 02:50 Last Infusion: 05/30/24 03:16 Dose: Infused Documented By: Admin: 05/30/24 02:05 Dose: 999 mls/hr Documented By: IDRegulo Sodium Chloride (Nss) 1,000 mls @ 999 mls/hr IV .Q1H1M ONE Stop: 05/30/24 03:46 Last Infusion: 05/30/24 06:21 Dose: Infused Documented By: Infusion: 05/30/24 03:35 Dose: 125 mls/hr Documented By: Admin: 05/30/24 02:56 Dose: 999 mls/hr Documented By: GIORGI Cefazolin Sodium (Ancef 2000mg) 2,000 mg in 15 mls @ 3.75 mls/min IV NOW STA Stop: 05/30/24 03:52 Last Admin: 05/30/24 04:33 Dose: Not Given Documented By: LUCIEN Daptomycin 600 mg/ Syringe 12 mls @ 6 mls/min IV NOW ONE; Protocol Stop: 05/30/24 05:01 Last Admin: 05/30/24 05:19 Dose: 6 mls/min Documented By: VICKI Cefepime HCl (Maxipime 2000mg) 2,000 mg in 20 mls @ 5 mls/min IV NOW STA; Protocol Stop: 05/30/24 04:58 Last Admin: 05/30/24 05:19 Dose: 5 mls/min Documented By: VICKI Ioversol (Optiray 320 100ml) 100 ml IV ONCE ONE Stop: 05/30/24 01:28 Last Admin: 05/30/24 01:27 Dose: 93 ml Documented By: ISAAK Metronidazole (Metronidazole 500 Mg Tab) 500 mg PO NOW STA; Protocol Stop: 05/30/24 03:50 Last Admin: 05/30/24 04:33 Dose: Not Given Documented By: Imaging Data Radiologist's Impression: Abdomen/Pelvis CT 05/29/24 23:58 EXAM: CT abd pelvis IV con only CLINICAL HISTORY: erythema/edema to genitals, r/o Fourniers TECHNIQUE: Contrast-enhanced CT of the abdomen and pelvis was performed, with the following protocol: axial images with, and reconstructed coronal and sagittal images. 93 ML OPTIRAY 320 intravenous contrast was administered. One of the following dose reduction techniques was utilized for this exam: Automated exposure control, adjustment of the mA and/or kV according to patient size, and use of iterative reconstruction. DLP: 1619.42 mGy-cm. COMPARISON: 05/20/2024 FINDINGS: Abdomen: Liver: Normal in size, shape, and density. No focal lesions, cysts, or masses were identified. Hepatic vasculature and biliary ducts are unremarkable. Gallbladder and Biliary System: Evidence of cholecystectomy. The common bile duct is normal in caliber without dilation. Pancreas: Pancreatic head, body, and tail are visualized and appear normal in size and density. No pancreatic masses or calcifications were noted. The pancreatic duct is not dilated. Spleen: Normal in size, shape, and density. No splenic lesions or masses were identified. Kidneys and Adrenal Glands: Both kidneys are normal in size, shape, and position. Cortical thickness is within normal limits. No renal calculi or hydronephrosis. Tiny cortical cysts in both kidneys. Focal cortical scarring is present in lower pole of right kidney. Adrenal glands are unremarkable with no evidence of masses or hyperplasia. Pelvis: Urinary Bladder: The urinary bladder appears thick-walled and trabeculated with Foote's catheter in its lumen, suggesting cystitis. Prostate: Normal in size and contour. No focal lesions or masses identified. Calcification in the prostatic parenchyma. Seminal Vesicles: Normal in size and appearance. No abnormalities noted. Rectum and Sigmoid Colon: Normal wall thickness and no evidence of mass. Peritoneal and Retroperitoneal Structures: No free fluid or abnormal fluid collections were identified within the abdomen or pelvis. No lymphadenopathy was noted. Significant atherosclerotic calcification is identified in the abdominal aorta and its branches. Bowel: The visualized bowel loops are normal in caliber and appearance. No evidence of bowel obstruction or wall thickening. Small umbilical hernia containing omental fat. Fecal loading is seen in colon. The appendix is not separately visualized however no signs of inflammation. Bones and Soft Tissues: Mild dextroscoliosis is seen in the lumbar spine. Diffuse reduced bone mineralization. Marked degenerative changes are seen in the visualized spine with bulky osteophytes and reduced disc spaces. There is fusion of L1 to vertebral bodies. Slight irregular left femoral head with sclerosis and subchondral cyst along left femoral head as well as along acetabulum. Reduced joint space also seen. There is edema and mild fat stranding's in the perineum/scrotal region however, no air is present. Mild fat stranding's also seen in the posterior abdominal pelvic wall. Metallic prosthesis in the right femur causing adjacent artifact and obscuration of the fine details. Patch of groundglass opacification with tiny nodular densities in left lower lobe. Pleural thickening/trace of pleural effusion on left side. IMPRESSION: 1. Tiny cortical cysts in both kidneys. Stable 2. Focal cortical scarring in the lower pole of the right kidney. Stable. 3. Evidence of cystitis. Clinical and lab correlation are advised. More conspicuous. 4. Small fat-containing umbilical hernia. Unchanged. 5. Edema and mild fat stranding's in the perineum/scrotal region without any air or signs of Mane's gangrene. New 6. Mild fat stranding's also seen in the posterior abdominal pelvic wall. New 7. Patch of groundglass opacification with tiny nodular densities in left lower lobe. Pleural thickening/trace of pleural effusion on left side. New 8. No significant findings suggesting genital infection/Fourniers Electronically signed by Philip Faria 05-30-2024 02:22 AM Chest X-Ray 05/29/24 23:58 EXAM: XR chest 1V portable CLINICAL HISTORY: Sepsis. TECHNIQUE: An X-ray image of the chest is obtained in AP projection. COMPARISON: Prior X-ray chest 05/20/2024. FINDINGS: Pulmonary Pa renchyma: Prominent hilar and perihilar vascular markings suggesting congestion (stable). A faint linear shadow is seen at the left lower lung zone, could represent an atelectatic band (new). The rest of the lungs are clear. No evidence of consolidation. No pulmonary nodules are identified. No evidence of pleural effusion or pleural thickening. Heart and Mediastinum: Heart size and shape are normal. No mediastinal widening or masses. No hilar or mediastinal lymphadenopathy. Bony Thorax: Bony thorax appears intact without fractures or deformities. Bilateral prosthesis at both humeri Soft Tissues: Soft tissues overlying the chest wall are unremarkable. Overlying ECG leads are seen. IMPRESSION: - Prominent vascular markings suggesting congestion (stable). - A faint linear shadow is seen at the left lower lung zone, which could represent an atelectatic band (new). - No acute cardiopulmonary abnormalities are identified. Electronically signed by Philip Faria 05-30-2024 01:41 AM Discharge Plan Visit Data Chief Complaint: Groin Pain Stated Complaint: Groin Pain, Catheter Issues ED Provider: Lavonne Barr Discharge Problem: Hypotension, Groin pain, Chronic indwelling Foote catheter, Excoriation, Scrotal erythema, Pain, penile Patient Disposition: Admitted As Inpatient Discharge Instructions Interventions: ED Discharge Assessment Last Done: 05/30/24 08:34
[2024-05-30] MEDS: SODIUM CHLORIDE 0.9% 1,000 ML IV SCH (00:11)
[2024-05-30 00:31] LABS: Basophils # (auto) 0.13 K/uL (0.00-0.20); Basophils % (auto) 1.1 %; Eosinophils # (auto) 0.37 K/uL (0.00-0.50); Eosinophils % (auto) 3.2 %; Hematocrit (blood only) 43.2 % (42.0-52.0); Hemoglobin 14.7 g/dl (14.0-18.0); Immature Granulocytes % (auto) 2.6 %; Lymphocytes # (auto) 1.61 K/uL (1.20-3.40); Mean Corpuscular Hemoglobin 30.9 pg (25.0-34.0); Mean Corpuscular Volume 90.8 fL (80.0-100.0); Mean Platelet Volume 9.9 fL (9.4-12.4); Monocytes # (auto) 1.35 K/uL (0.11-0.59); Monocytes % (auto) 11.8 %; Neutrophils # (auto) 7.71 K/uL (1.40-6.50); Neutrophils % (auto) 67.3 %; Platelet Count 354 K/uL (130-400); RDW Coefficient of Variation 14.4 % (11.5-14.5); RDW Standard Deviation 47.8 fL (36.4-46.3); Red Blood Count 4.76 M/uL (4.70-6.10); White Blood Count 11.47 K/ul (4.8-10.8)
[2024-05-30 00:44] LABS: Appearance Urine Clear (Clear); Bilirubin Urine Negative (Negative); Blood Urine Negative (Negative); Color Urine Yellow; Glucose Urine UA 3+ (Negative); Ketones Urine Negative (Negative); Leukocyte Esterase Urine Negative (Negative); Nitrite Urine Negative (Negative); Protein Urine Negative (Negative); Specific Gravity Urine 1.008 (1.000-1.030); Urobilinogen Urine Negative (Negative); pH Urine 5.5 (4.5-7.5)
[2024-05-30 00:46] LABS: Albumin Level 3.9 gm/dl (3.4-5.0); BUN Creatinine Ratio 20.5 (10-20); Bilirubin Direct 0.2 mg/dl (0-0.2); Bilirubin,Total 0.6 mg/dl (0.2-1.0); Calcium 9.2 mg/dl (8.6-10.3); Creatinine Clr Calc Pharmacy 60.6 ml/min; Magnesium 2.2 mg/dl (1.7-2.4); Potassium 4.5 mmol/L (3.5-5.1); Total Protein 6.7 gm/dl (6.0-8.3)
[2024-05-30] MEDS: OPTIRAY 320 100ml IV ONE (01:27)
--- NOTE | 2024-05-30 01:41 | XRay Report ---
EXAM: XR chest 1V portable CLINICAL HISTORY: Sepsis. TECHNIQUE: An X-ray image of the chest is obtained in AP projection. COMPARISON: Prior X-ray chest 05/20/2024. FINDINGS: Pulmonary Pa renchyma: Prominent hilar and perihilar vascular markings suggesting congestion (stable). A faint linear shadow is seen at the left lower lung zone, could represent an atelectatic band (new). The rest of the lungs are clear. No evidence of consolidation. No pulmonary nodules are identified. No evidence of pleural effusion or pleural thickening. Heart and Mediastinum: Heart size and shape are normal. No mediastinal widening or masses. No hilar or mediastinal lymphadenopathy. Bony Thorax: Bony thorax appears intact without fractures or deformities. Bilateral prosthesis at both humeri Soft Tissues: Soft tissues overlying the chest wall are unremarkable. Overlying ECG leads are seen. IMPRESSION: - Prominent vascular markings suggesting congestion (stable). - A faint linear shadow is seen at the left lower lung zone, which could represent an atelectatic band (new). - No acute cardiopulmonary abnormalities are identified. Electronically signed by Philip Faria 05-30-2024 01:41 AM
[2024-05-30] MEDS: SODIUM CHLORIDE 0.9% 1,000 ML IV ONE ×2 (02:05→02:56)
--- NOTE | 2024-05-30 02:22 | CT Scan Report ---
EXAM: CT abd pelvis IV con only CLINICAL HISTORY: erythema/edema to genitals, r/o Fourniers TECHNIQUE: Contrast-enhanced CT of the abdomen and pelvis was performed, with the following protocol: axial images with, and reconstructed coronal and sagittal images. 93 ML OPTIRAY 320 intravenous contrast was administered. One of the following dose reduction techniques was utilized for this exam: Automated exposure control, adjustment of the mA and/or kV according to patient size, and use of iterative reconstruction. DLP: 1619.42 mGy-cm. COMPARISON: 05/20/2024 FINDINGS: Abdomen: Liver: Normal in size, shape, and density. No focal lesions, cysts, or masses were identified. Hepatic vasculature and biliary ducts are unremarkable. Gallbladder and Biliary System: Evidence of cholecystectomy. The common bile duct is normal in caliber without dilation. Pancreas: Pancreatic head, body, and tail are visualized and appear normal in size and density. No pancreatic masses or calcifications were noted. The pancreatic duct is not dilated. Spleen: Normal in size, shape, and density. No splenic lesions or masses were identified. Kidneys and Adrenal Glands: Both kidneys are normal in size, shape, and position. Cortical thickness is within normal limits. No renal calculi or hydronephrosis. Tiny cortical cysts in both kidneys. Focal cortical scarring is present in lower pole of right kidney. Adrenal glands are unremarkable with no evidence of masses or hyperplasia. Pelvis: Urinary Bladder: The urinary bladder appears thick-walled and trabeculated with Estevez's catheter in its lumen, suggesting cystitis. Prostate: Normal in size and contour. No focal lesions or masses identified. Calcification in the prostatic parenchyma. Seminal Vesicles: Normal in size and appearance. No abnormalities noted. Rectum and Sigmoid Colon: Normal wall thickness and no evidence of mass. Peritoneal and Retroperitoneal Structures: No free fluid or abnormal fluid collections were identified within the abdomen or pelvis. No lymphadenopathy was noted. Significant atherosclerotic calcification is identified in the abdominal aorta and its branches. Bowel: The visualized bowel loops are normal in caliber and appearance. No evidence of bowel obstruction or wall thickening. Small umbilical hernia containing omental fat. Fecal loading is seen in colon. The appendix is not separately visualized however no signs of inflammation. Bones and Soft Tissues: Mild dextroscoliosis is seen in the lumbar spine. Diffuse reduced bone mineralization. Marked degenerative changes are seen in the visualized spine with bulky osteophytes and reduced disc spaces. There is fusion of L1 to vertebral bodies. Slight irregular left femoral head with sclerosis and subchondral cyst along left femoral head as well as along acetabulum. Reduced joint space also seen. There is edema and mild fat stranding's in the perineum/scrotal region however, no air is present. Mild fat stranding's also seen in the posterior abdominal pelvic wall. Metallic prosthesis in the right femur causing adjacent artifact and obscuration of the fine details. Patch of groundglass opacification with tiny nodular densities in left lower lobe. Pleural thickening/trace of pleural effusion on left side. IMPRESSION: 1. Tiny cortical cysts in both kidneys. Stable 2. Focal cortical scarring in the lower pole of the right kidney. Stable. 3. Evidence of cystitis. Clinical and lab correlation are advised. More conspicuous. 4. Small fat-containing umbilical hernia. Unchanged. 5. Edema and mild fat stranding's in the perineum/scrotal region without any air or signs of Mane's gangrene. New 6. Mild fat stranding's also seen in the posterior abdominal pelvic wall. New 7. Patch of groundglass opacification with tiny nodular densities in left lower lobe. Pleural thickening/trace of pleural effusion on left side. New 8. No significant findings suggesting genital infection/Fourniers Electronically signed by Philip Faria 05-30-2024 02:22 AM
--- NOTE | 2024-05-30 03:41 | Urology Consultation ---
<Statement entered by Murtaza Carney MD - 05/30/24 07:48> I agree with the above documentation. 73-year-old male recently admitted with pyelonephritis, returned with scrotal erythema and discomfort. No evidence of abscess or Mane's gangrene. Would recommend broad-spectrum antibiotics, narrowing based on culture data. Based on CT scan both kidneys are draining wel l without any obstruction. Would maintain Estevez catheter in place. No plan for any surgical intervention at this time. -Murtaza Carney MD. Date of Consultation May 30, 2024 Assessment & Plan (1) Scrotal erythema: At the request of the treating emergency room physician I evaluated the patient in room B10: As noted on available imaging and on physical exam there is no crepitus or gas noted in the soft tissue and there are no areas of drainable abscess or fluid collections necessitating urgent surgical intervention It does appear as though the patient may have cellulitis of his groin/penis/scrotum and broad-spectrum antibiotics will be utilized (the admitting service has initiated cefepime and daptomycin) On exam of the patient with his Estevez catheter it also appears the patient may be suffering from a balantitis so antifungals can be utilized (the patient is already receiving nystatin) Would recommend consulting wound care nurse Serial labs to be followed Serial exams should be followed to ensure appropriate clinical response We will continue to follow the patient while hospitalized with additional recommendations to follow-up History of Present Illness Reason for Consultation: Penile pain History of Present Illness This is a 73-year-old male who is recently admitted to [facility] from 05/20/2024 through 05/26/2024. Patient's principal diagnosis during admission was sepsis secondary to pyelonephritis and a UTI. During patient's admission he presented with a lactic acid level 2.5 which peaked later the same day at 3.9. The patient was treated with intravenous antibiotics and intravenous fluids and his lactic acid subsequently normalized. Available/relevant imaging from this admission was reviewed and he did have a CT scan on 05/20/2024. This showed the patient had some hypoenhancement involving the superior pole of the left kidney with some adjacent inflammatory changes suggestive of acute pyelonephritis. There is no evidence of any fluid collection or abscess. There is also wall thickening of the right aspect of the urinary bladder. When this patient presented to the hospital he had a leukocytosis of 12.0. At time of discharge it was 11.4. A urinalysis performed showed cloudy urine which was negative for nitrites. He did have 2+ leukocyte Estrace and pyuria with greater than 50 white blood cells per high-power field and 4+ bacteria. Available culture data was reviewed and patient did have blood cultures checked that were negative for growth. He did have a urine culture performed on 05/20/2024 and this grew Klebsiella which was nearly pansensitive (it only showed intermediate sensitivity to Unasyn). The patient was ultimately discharged home on oral antibiotics in the form of Bactrim which was to conclude on 06/03/2025. There is also no early to mention that this patient had a left lower extremity DVT for which he was initiated on Eliquis which she currently takes. The patient re-presented to the emergency department via EMS from his care facility secondary to groin pain. Patient notes for approximate the past 2 to 3 days he has noted pain in his groin/penile area but could not provide any further details. He specifically notes he has not had any fevers, shakes, or chills. He denies any back or flank pain. He denies any abdominal pain. As noted the patient does have an indwelling Estevez catheter that was placed during his previous admission. The patient does note that he is diabetic Since arrival to the emergency department today he has had labs and imaging which I independent reviewed. Chest x-ray was performed that showed no evidence of pneumonia. Patient had a CT scan of the abdomen pelvis which showed he had a thick walled and trabeculated bladder suggestive of cystitis. His prostate gland appeared normal in size and contour. There is no evidence of hydronephrosis bilaterally. The peritoneal and retroperitoneal structures on the CT scan demonstrated no free fluid or abnormal fluid collections within the abdomen or pelvis. In the peritoneum and scrotal region edema and fat stranding was noted however there is no gas or air noted in the tissue. Interpreting radiologist specifically noted that there were no signs suggestive of Mane gangrene Allergies Allergy/AdvReac Type Severity Reaction Status Date / Time No Known Allergies Allergy Verified 05/30/24 00:03 Home Medications Medication Instructions Recorded Confirmed Type aspirin 81 mg tablet,delayed 81 mg PO QAM 05/18/18 05/30/24 History release doxazosin 1 mg tablet (Cardura) 1 mg PO HS 05/18/18 05/30/24 History folic acid 1 mg tablet 1 mg PO BID 05/18/18 05/30/24 History rosuvastatin 20 mg tablet 20 mg PO HS 05/18/18 05/30/24 History cholecalciferol (vitamin D3) 50 50 mcg PO QAM 09/04/19 05/30/24 History mcg (2,000 unit) capsule (Vitamin D3) pantoprazole 40 mg tablet,delayed 40 mg PO QAM 02/18/23 05/30/24 History release furosemide 40 mg tablet (Lasix) 20 mg PO HS 03/26/23 05/30/24 History melatonin 3 mg disintegrating 3 mg PO HS 03/26/23 05/30/24 History tablet multivitamin (Daily-Lala tablet) 1 tab PO QAM 03/26/23 05/30/24 History potassium chloride 10 mEq 10 meq PO TID 03/26/23 05/30/24 History tablet,extended release(part/cryst) clopidogrel 75 mg tablet 75 mg PO QAM 10/22/23 05/30/24 History nystatin 100,000 unit/gram topical 1 applic topical BID 10/22/23 05/30/24 History cream quetiapine 25 mg tablet (Seroquel) 25 mg PO QAM 05/17/24 05/30/24 History furosemide 40 mg tablet (Lasix) 40 mg PO QAM 05/20/24 05/30/24 History sennosides 8.6 mg-docusate sodium 1 tab-cap PO DAILY PRN Constipation 05/20/24 05/30/24 History 50 mg tablet (Senna with Docusate Sodium) apixaban 5 mg tablet (Eliquis) 5 mg PO BID 1 month #60 tabs 05/26/24 05/30/24 Rx insulin glargine 100 unit/mL 7 unit (0.07 mL) subcut BID 30 05/26/24 05/30/24 Rx subcutaneous solution (Lantus days #4.2 mL U-100 Insulin) metoprolol succinate 25 mg 25 mg PO BID 1 month #60 tabs 05/26/24 05/30/24 Rx tablet,extended release 24 hr empagliflozin 25 mg tablet 25 mg PO QAM 05/30/24 05/30/24 History (Jardiance) sulfamethoxazole 800 1 tab PO BID 05/30/24 05/30/24 History mg-trimethoprim 160 mg tablet (Bactrim DS) Patient History Medical History Sepsis Urinary tract infection Cellulitis of lower extremity Diastolic heart failure CAD (coronary artery disease) s/p BMS to RCA in 1997 IBS (irritable bowel syndrome) Chronic obstructive pulmonary disease controlled w/ inhaler Sleep apnea CPAP- not currently using due to worries about safety after recall, to speak w/ about Osteoarthritis Diabetes mellitus, type 2 NIDDM- no longer taking metformin due to bowel issues per pt Hearing deficit [place] Hyperlipidemia Atrial fibrillation dx 1 year ago - on warfarin - follows dr. ruiz needs cardioversion and had cardioversion x 2 about a year ago 09/22/21- last visit w/ joseph about 6 mos ago, states is due for another visit Pilonidal cyst Depression Obesity Anemia Migraines Myocardial infarction 1997 Chronic GERD Surgical History History of heart artery stent 1997 - [place] - 1 stent placed - hospital in [place], [place] reports had another cath early in [facility] - no stents/angioplasty now follows w/ dr ruiz- 6 mos since last visit History of cataract surgery right and left History of total hip arthroplasty RT History of total shoulder replacement BL History of esophagogastroduodenoscopy (EGD) H/O colonoscopy Hx laparoscopic cholecystectomy Family History Brother Family history of diabetes mellitus X2 Social History Smoking Status: Never smoker Tobacco Type: Cigarettes Second Hand Exposure: No; Do You Dip or Chew Tobacco: No; Hx Alcohol Use: No Hx Substance Use: No Preferred Language: Micronesian Communication Ability: Effective Tree 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 Required: No Beliefs That Will Affect Care: None Current Living Situation: Detention Feels Safe at Home: Yes Assistive Devices: Walker and Wheelchair Review of Systems Review of Systems: All systems reviewed & are unremarkable except as noted in HPI & below Physical Exam Constitutional: + obese; no acute distress Eyes: Wears glasses ENMT: Ears: no external ear abnormality Mouth: no oropharynx abnormality Neck: trachea midline Respiratory: normal respiratory effort; no respiratory distress and no labored breathing Cardiovascular: Rate/Rhythm: regular rate and regular rhythm Gastrointestinal (Abdomen): Abdomen is soft without distention or rigidity. There is no pain with palpation Musculoskeletal: No calf tenderness Skin: + erythema See below description Neurologic: moves all extremities Psychiatric: Orientation: alert and oriented x 3 Affect: + flat affect Genitourinary: A Estevez catheter is present draining clear yellow urine. With the assistance of the nurse the patient's genitals/perineal area was examined. Anteriorly the patient had extensive erythema in his groins without any open areas or areas of excoriation or drainage. There is no crepitus noted in the soft tissue. The area was slightly warm to touch. Patient did have erythema noted of the penile shaft with a small area of excoriation on the right side of the mid shaft. There is no purulent drainage. The area was painful to palpation. There is no crepitus noted in the soft tissue. The patient was log-rolled in bed and his perineum was examined. There are no open areas in the patient's perineum. There were also no areas of eschar. There are no sacral decubitus wounds at this time. There is no crepitus in the soft tissue. The patient's posterior scrotum was examined and had some slight erythema without any open areas or open areas of excoriation or drainage. The area was painful to palpation Results & Data Vital Signs (Past 12 Hours) Vital Signs Temp Pulse Pulse Resp BP BP Pulse Ox 05/30/24 03:15 84 16 103/78 97 05/30/24 03:00 89 16 93/45 L 95 05/30/24 02:48 84 05/30/24 02:30 82 17 99/72 L 98 05/30/24 02:00 85 18 104/59 L 97 05/30/24 01:30 88 18 99/46 L 98 05/30/24 00:45 93 H 18 115/44 L 95 05/30/24 00:00 84 18 97 05/29/24 23:58 80 18 107/53 L 97 05/29/24 23:58 85 18 97 05/29/24 22:42 83 05/29/24 22:25 36.7 C 80 18 97/55 L 97 05/29/24 22:25 36.7 C 87 18 97/55 L 94 O2 Del Method 05/30/24 03:15 Room Air 05/30/24 03:00 Room Air 05/30/24 02:48 05/30/24 02:30 Room Air 05/30/24 02:00 Room Air 05/30/24 01:30 Room Air 05/30/24 00:45 Room Air 05/30/24 00:00 Room Air 05/29/24 23:58 Room Air 05/29/24 23:58 Room Air 05/29/24 22:42 05/29/24 22:25 Room Air 05/29/24 22:25 Room Air PG Care Time/CCT Total # of Minutes Spent Total Time Spent with Patient: Total time spent is greater than 50% in coordination of care (as documented) at patient's floor/unit and/or counseling patient: Coding Level of Care Code 76466 INT INP/OBS CARE 3/75MIN Diagnoses Scrotal erythema N50.89
[2024-05-30] MEDS: ceFAZolin 2000MG 2,000 MG/15 ML SYR IV STA (04:33)
[2024-05-30] MEDS: metroNIDAZOLE 500 MG TAB PO STA (04:33)
--- NOTE | 2024-05-30 04:55 | History & Physical Report ---
Date of Service May 30, 2024 Assessment & Plan (1) Sepsis: (2) Hypotension: (3) Cellulitis of groin: (4) Cystitis: (5) Candidal balanitis: (6) Dehydration: Plan The patient is a 73-year-old male with a past medical history including chronic indwelling Estevez catheter, recent acute pyelonephritis, L5 vertebral fracture, cognitive impairment, morbid obesity, self-care deficit, history of DVT, atrial fibrillation on Eliquis, CAD, history of bilateral hip replacements, history of venous stasis ulcer right lower leg, chronic venous insufficiency, history of venous stasis ulcer, and hypertension. The patient was most recently mated to [facility] from 05/20-05/26/2024 for treatment of pyelonephritis, initially treated with IV daptomycin and cefepime, and then changed to oral Bactrim for discharge.The patient presents to the emergency department with complaint of groin pain, progressively worsening rash since discharge from hospital on 05/26/2024. Workup in the emergency department included a CT scan of abdomen pelvis which showed evidence of cystitis, chronic indwelling Estevez catheter, edema and mild fat stranding in the perineal/scrotal region without any air or signs of Mane's gangrene. Mild fat stranding also seen in posterior abdominal pelvic wall. Patchy groundglass opacification with tiny nodular density at the left lower lobe. Pleural thickening and trace of pleural effusion on the left side. No findings suggestive genital infection/Mane's. The patient is referred to the [facility] hospitalist service for further evaluation and treatment. Patient has been seen by urology in the emergency department. #Sepsis- Contributing sources including not limited to: Cystitis, yeast balanitis, cellulitis of groin, penis, scrotum. Placed on daptomycin 750 mg IV daily, has personal history of MRSA Cefepime 2 g IV every 12 hours Continue Lotrimin Consult wound care Consult urology Status post 3 L normal saline IV fluid bolus in ED Placed on NSS + KCl 20 mEq at 80 mL/h x 1 additional liter Admit on telemetry to follow-up for hypotension History of Klebsiella pneumonia UTI on 05/20/2024 Follow urine culture and sensitivities Stop Bactrim Diabetes mellitus- Reduce glargine from 7 to 4 units SQ twice daily Placed on Accu-Cheks for NovoLog SSI Hold Jardiance CAD/hypertension/persistent atrial fibrillation- Continue apixaban, aspirin, clopidogrel Hold furosemide, metoprolol succinate, doxazosin, potassium chloride due to hypotension Chronic medical conditions: GERD-Continue pantoprazole Hyperlipidemia-continue rosuvastatin Agitation-continue quetiapine History of Present Illness Chief Complaint: The patient presents to the emergency department with complaint of groin pain, progressively worsening rash since discharge from hospital on 05/26/2024. Workup in the emergency department included a CT scan of abdomen pelvis which showed evidence of cystitis, chronic indwelling Estevez catheter, edema and mild fat stranding in the perineal/scrotal region without any air or signs of Mane's gangrene. Mild fat stranding also seen in posterior abdominal pelvic wall. Patchy groundglass opacification with tiny nodular density at the left lower lobe. Pleural thickening and trace of pleural effusion on the left side. No findings suggestive genital infection/Mane's. Primary Care Provider: Justo Burgos DO The patient is a 73-year-old male with a past medical history including chronic indwelling Estevez catheter, recent acute pyelonephritis, L5 vertebral fracture, cognitive impairment, morbid obesity, self-care deficit, history of DVT, atrial fibrillation on Eliquis, CAD, history of bilateral hip replacements, history of venous stasis ulcer right lower leg, chronic venous insufficiency, history of venous stasis ulcer, and hypertension. The patient was most recently mated to [facility] from 05/20-05/26/2024 for treatment of pyelonephritis, initially treated with IV daptomycin and cefepime, and then changed to oral Bactrim for discharge.The patient presents to the emergency department with complaint of groin pain, progressively worsening rash since discharge from hospital on 05/26/2024. Workup in the emergency department included a CT scan of abdomen pelvis which showed evidence of cystitis, chronic indwelling Estevez catheter, edema and mild fat stranding in the perineal/scrotal region without any air or signs of Mane's gangrene. Mild fat stranding also seen in posterior abdominal pelvic wall. Patchy groundglass opacification with tiny nodular d ensity at the left lower lobe. Pleural thickening and trace of pleural effusion on the left side. No findings suggestive genital infection/Mane's. Allergies Allergy/AdvReac Type Severity Reaction Status Date / Time No Known Allergies Allergy Verified 05/30/24 00:03 Home Medications Medication Instructions Recorded Confirmed Type aspirin 81 mg tablet,delayed 81 mg PO QAM 05/18/18 05/30/24 History release doxazosin 1 mg tablet (Cardura) 1 mg PO HS 05/18/18 05/30/24 History folic acid 1 mg tablet 1 mg PO BID 05/18/18 05/30/24 History rosuvastatin 20 mg tablet 20 mg PO HS 05/18/18 05/30/24 History cholecalciferol (vitamin D3) 50 50 mcg PO QAM 09/04/19 05/30/24 History mcg (2,000 unit) capsule (Vitamin D3) pantoprazole 40 mg tablet,delayed 40 mg PO QAM 02/18/23 05/30/24 History release furosemide 40 mg tablet (Lasix) 20 mg PO HS 03/26/23 05/30/24 History melatonin 3 mg disintegrating 3 mg PO HS 03/26/23 05/30/24 History tablet multivitamin (Daily-Lala tablet) 1 tab PO QAM 03/26/23 05/30/24 History potassium chloride 10 mEq 10 meq PO TID 03/26/23 05/30/24 History tablet,extended release(part/cryst) clopidogrel 75 mg tablet 75 mg PO QAM 10/22/23 05/30/24 History nystatin 100,000 unit/gram topical 1 applic topical BID 10/22/23 05/30/24 History cream quetiapine 25 mg tablet (Seroquel) 25 mg PO QAM 05/17/24 05/30/24 History furosemide 40 mg tablet (Lasix) 40 mg PO QAM 05/20/24 05/30/24 History sennosides 8.6 mg-docusate sodium 1 tab-cap PO DAILY PRN Constipation 05/20/24 05/30/24 History 50 mg tablet (Senna with Docusate Sodium) apixaban 5 mg tablet (Eliquis) 5 mg PO BID 1 month #60 tabs 05/26/24 05/30/24 Rx insulin glargine 100 unit/mL 7 unit (0.07 mL) subcut BID 30 05/26/24 05/30/24 Rx subcutaneous solution (Lantus days #4.2 mL U-100 Insulin) metoprolol succinate 25 mg 25 mg PO BID 1 month #60 tabs 05/26/24 05/30/24 Rx tablet,extended release 24 hr empagliflozin 25 mg tablet 25 mg PO QAM 05/30/24 05/30/24 History (Jardiance) sulfamethoxazole 800 1 tab PO BID 05/30/24 05/30/24 History mg-trimethoprim 160 mg tablet (Bactrim DS) Past Med/Surg History Problem List (Updated 05/30/24 @ 05:08 by Jae Palmer MD) Sepsis Dehydration Candidal balanitis Cystitis Cellulitis of groin Pain, penile (Acute) Scrotal erythema (Acute) Excoriation (Acute) Hypotension (Acute) Chronic indwelling Estevez catheter (Acute) Groin pain (Acute) Weakness (Acute) Acute alteration in mental status (Acute) Acute pyelonephritis (Acute) Elevated WBC count (Acute) Elevated lactic acid level (Acute) Acute UTI (Acute) Confusion (Acute) Abdominal distension L5 vertebral fracture Cellulitis Cognitive impairment (Acute) Morbid obesity with BMI of 40.0-44.9, adult Self-care deficit Obstructive sleep apnea DVT (deep venous thrombosis) (Acute) DJD of shoulder (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) Sacral wound Diabetes (Chronic) NIDDM Heart disease (Chronic) CAD-1 stent Encounter for pre-operative examination Persistent atrial fibrillation CAD (coronary artery disease) History of right hip replacement Lymphedema (Chronic) Chronic venous insufficiency (Chronic) Venous stasis ulcer (Acute) Arthritis of left hip Hip bursitis, left Hypertension Medical History Sepsis Urinary tract infection Cellulitis of lower extremity Diastolic heart failure CAD (coronary artery disease) s/p BMS to RCA in 1997 IBS (irritable bowel syndrome) Chronic obstructive pulmonary disease controlled w/ inhaler Sleep apnea CPAP- not currently using due to worries about safety after recall, to speak w/ about Osteoarthritis Diabetes mellitus, type 2 NIDDM- no longer taking metformin due to bowel issues per pt Hearing deficit [place] Hyperlipidemia Atrial fibrillation dx 1 year ago - on warfarin - follows dr. ruiz needs cardioversion and had cardioversion x 2 about a year ago 09/22/21- last visit w/ joseph about 6 mos ago, states is due for another visit Pilonidal cyst Depression Obesity Anemia Migraines Myocardial infarction 1997 Chronic GERD Surgical History History of heart artery stent 1997 - [place] - 1 stent placed - hospital in [place], [place] reports had another cath early in [facility] - no stents/angioplasty now follows w/ dr ruiz- 6 mos since last visit History of cataract surgery right and left History of total hip arthroplasty RT History of total shoulder replacement BL History of esophagogastroduodenoscopy (EGD) H/O colonoscopy Hx laparoscopic cholecystectomy Family History Brother Family history of diabetes mellitus X2 Social History Smoking Status: Never smoker Tobacco Type: Cigarettes Second Hand Exposure: No; Do You Dip or Chew Tobacco: No; Hx Alcohol Use: No Hx Substance Use: No Preferred Language: Irish Communication Ability: Effective Mid Level Developer Required: No Beliefs That Will Affect Care: None Current Living Situation: [facility] Feels Safe at Home: Yes Assistive Devices: Walker and Wheelchair Review of Systems Review of Systems: The patient denies chest pain, palpitations, shortness of breath, dyspnea on exertion, cough, lower extremity swelling, sore throat, fevers, chills, sweats, nausea, vomiting, diarrhea , constipation, blood in urine or stool, dysuria, urinary frequency or urgency, lightheadedness, dizziness, headache, memory loss, loss of consciousness, imbalance, focal weakness, numbness or tingling in arms or legs, generalized arthralgias or myalgias, back or neck pain, or night sweats. The review of systems is otherwise negative other than for that already noted above, and at least 10 systems have been reviewed. Physical Exam Physical Exam: The patient is awake, alert and oriented 3, well developed and well nourished, normocephalic and atraumatic, lying in bed and in no acute distress. HEENT--PERRL, EOMI, mucous membranes and oropharynx mildly dry. Neck--supple. No JVD. No bruits. Thyroid normal, trachea midline, no adenopathy. Heart--normal S1 and S2. No murmurs, rubs or gallops. Lungs--clear bilaterally, no respiratory distress, no accessory muscle use. Abdomen--normal bowel sounds and soft. Nontender. Nondistended, no hernias or masses, no organomegaly. Extremities--no cyanosis or clubbing. No edema. There are good distal pulses b/l. Dermatologic--mild erythema involving penis, scrotal area, inner thighs bilaterally, perineum. Balanitis involving head of penis and shaft suggesting yeast. No crepitus Neurologic--cranial nerves II through XII grossly intact. Rheumatologic--normal range of motion. Psychiatric--normal affect. Results & Data Results & Data Vital Signs (Past 12 Hours) Vital Signs Temp Pulse Pulse Resp BP BP Pulse Ox 05/30/24 03:15 84 16 103/78 97 05/30/24 03:00 89 16 93/45 L 95 05/30/24 02:48 84 05/30/24 02:30 82 17 99/72 L 98 05/30/24 02:00 85 18 104/59 L 97 05/30/24 01:30 88 18 99/46 L 98 05/30/24 00:45 93 H 18 115/44 L 95 05/30/24 00:00 84 18 97 05/29/24 23:58 80 18 107/53 L 97 05/29/24 23:58 85 18 97 05/29/24 22:42 83 05/29/24 22:25 36.7 C 80 18 97/55 L 97 05/29/24 22:25 36.7 C 87 18 97/55 L 94 O2 Del Method 05/30/24 03:15 Room Air 05/30/24 03:00 Room Air 05/30/24 02:48 05/30/24 02:30 Room Air 05/30/24 02:00 Room Air 05/30/24 01:30 Room Air 05/30/24 00:45 Room Air 05/30/24 00:00 Room Air 05/29/24 23:58 Room Air 05/29/24 23:58 Room Air 05/29/24 22:42 05/29/24 22:25 Room Air 05/29/24 22:25 Room Air Laboratory Results Laboratory Results WBC 11.47 K/ul (4.8-10.8) H 05/30/24 00:06 RBC 4.76 M/uL (4.70-6.10) 05/30/24 00:06 Hgb 14.7 g/dl (14.0-18.0) 05/30/24 00:06 Hct 43.2 % (42.0-52.0) 05/30/24 00:06 MCV 90.8 fL (80.0-100.0) 05/30/24 00:06 MCH 30.9 pg (25.0-34.0) 05/30/24 00:06 MCHC 34.0 g/dL (32.0-36.0) 05/30/24 00:06 RDW Std Deviation 47.8 fL (36.4-46.3) H 05/30/24 00:06 RDW Coeff of [place] 14.4 % (11.5-14.5) 05/30/24 00:06 Plt Count 354 K/uL (130-400) 05/30/24 00:06 MPV 9.9 fL (9.4-12.4) 05/30/24 00:06 Immature Gran % (Auto) 2.6 % 05/30/24 00:06 Neut % (Auto) 67.3 % 05/30/24 00:06 Lymph % (Auto) 14.0 % 05/30/24 00:06 [place] % (Auto) 11.8 % 05/30/24 00:06 Eos % (Auto) 3.2 % 05/30/24 00:06 Baso % (Auto) 1.1 % 05/30/24 00:06 Neut # (Auto) 7.71 K/uL (1.40-6.50) H 05/30/24 00:06 Lymph # (Auto) 1.61 K/uL (1.20-3.40) 05/30/24 00:06 [place] # (Auto) 1.35 K/uL (0.11-0.59) H 05/30/24 00:06 Eos # (Auto) 0.37 K/uL (0.00-0.50) 05/30/24 00:06 Baso # (Auto) 0.13 K/uL (0.00-0.20) 05/30/24 00:06 Immature Gran # (Auto) 0.30 K/uL (0.01-0.20) H 05/30/24 00:06 Sodium 136 mmol/L (136-145) 05/30/24 00:06 Potassium 4.5 mmol/L (3.5-5.1) 05/30/24 00:06 Chloride 101 mmol/L (98-107) 05/30/24 00:06 Carbon Dioxide 28 mmol/L (21-32) 05/30/24 00:06 Anion Gap 7 (3-11) 05/30/24 00:06 BUN 26 mg/dl (6-23) H 05/30/24 00:06 Creatinine 1.27 mg/dl (0.6-1.4) 05/30/24 00:06 Est Cr Clr Drug Dosing 60.6 ml/min 05/30/24 00:06 eGFR 59.28 05/30/24 00:06 BUN/Creatinine Ratio 20.5 (10-20) H 05/30/24 00:06 Glucose 138 mg/dl (70-99(Fasting)) H 05/30/24 00:06 Lactate 1.3 mmol/L (0.4-2.0) 05/30/24 00:06 Calcium 9.2 mg/dl (8.6-10.3) 05/30/24 00:06 Magnesium 2.2 mg/dl (1.7-2.4) 05/30/24 00:06 Total Bilirubin 0.6 mg/dl (0.2-1.0) 05/30/24 00:06 Direct Bilirubin 0.2 mg/dl (0-0.2) 05/30/24 00:06 AST 35 U/L (13-39) 05/30/24 00:06 ALT 34 U/L (7-52) 05/30/24 00:06 Alkaline Phosphatase 76 U/L (34-104) 05/30/24 00:06 Troponin I High Sens 5.0 pg/ml (0-20) 05/30/24 00:06 Total Protein 6.7 gm/dl (6.0-8.3) 05/30/24 00:06 Albumin 3.9 gm/dl (3.4-5.0) 05/30/24 00:06 Procalcitonin 0.06 ng/ml (0-0.5) 05/30/24 00:06 Urine Color Yellow 05/30/24 00:17 Urine Appearance Clear (Clear) 05/30/24 00:17 Urine pH 5.5 (4.5-7.5) 05/30/24 00:17 Ur Specific [place] 1.008 (1.000-1.030) 05/30/24 00:17 Urine Protein Negative (Negative) 05/30/24 00:17 Urine Glucose (UA) 3+ (Negative) H 05/30/24 00:17 Urine Ketones Negative (Negative) 05/30/24 00:17 Urine Blood Negative (Negative) 05/30/24 00:17 Urine Nitrite Negative (Negative) 05/30/24 00:17 Urine Bilirubin Negative (Negative) 05/30/24 00:17 Urine Urobilinogen Negative (Negative) 05/30/24 00:17 Ur Leukocyte Esterase Negative (Negative) 05/30/24 00:17 Impressions Abdomen/Pelvis CT 05/29/24 23:58 EXAM: CT abd pelvis IV con only CLINICAL HISTORY: erythema/edema to genitals, r/o Fourniers TECHNIQUE: Contrast-enhanced CT of the abdomen and pelvis was performed, with the following protocol: axial images with, and reconstructed coronal and sagittal images. 93 ML OPTIRAY 320 intravenous contrast was administered. One of the following dose reduction techniques was utilized for this exam: Automated exposure control, adjustment of the mA and/or kV according to patient size, and use of iterative reconstruction. DLP: 1619.42 mGy-cm. COMPARISON: 05/20/2024 FINDINGS: Abdomen: Liver: Normal in size, shape, and density. No focal lesions, cysts, or masses were identified. Hepatic vasculature and biliary ducts are unremarkable. Gallbladder and Biliary System: Evidence of cholecystectomy. The common bile duct is normal in caliber without dilation. Pancreas: Pancreatic head, body, and tail are visualized and appear normal in size and density. No pancreatic masses or calcifications were noted. The pancreatic duct is not dilated. Spleen: Normal in size, shape, and density. No splenic lesions or masses were identified. Kidneys and Adrenal Glands: Both kidneys are normal in size, shape, and position. Cortical thickness is within normal limits. No renal calculi or hydronephrosis. Tiny cortical cysts in both kidneys. Focal cortical scarring is present in lower pole of right kidney. Adrenal glands are unremarkable with no evidence of masses or hyperplasia. Pelvis: Urinary Bladder: The urinary bladder appears thick-walled and trabeculated with Estevez's catheter in its lumen, suggesting cystitis. Prostate: Normal in size and contour. No focal lesions or masses identified. Calcification in the prostatic parenchyma. Seminal Vesicles: Normal in size and appearance. No abnormalities noted. Rectum and Sigmoid Colon: Normal wall thickness and no evidence of mass. Peritoneal and Retroperitoneal Structures: No free fluid or abnormal fluid collections were identified within the abdomen or pelvis. No lymphadenopathy was noted. Significant atherosclerotic calcification is identified in the abdominal aorta and its branches. Bowel: The visualized bowel loops are normal in caliber and appearance. No evidence of bowel obstruction or wall thickening. Small umbilical hernia containing omental fat. Fecal loading is seen in colon. The appendix is not separately visualized however no signs of inflammation. Bones and Soft Tissues: Mild dextroscoliosis is seen in the lumbar spine. Diffuse reduced bone mineralization. Marked degenerative changes are seen in the visualized spine with bulky osteophytes and reduced disc spaces. There is fusion of L1 to vertebral bodies. Slight irregular left femoral head with sclerosis and subchondral cyst along left femoral head as well as along acetabulum. Reduced joint space also seen. There is edema and mild fat stranding's in the perineum/scrotal region however, no air is present. Mild fat stranding's also seen in the posterior abdominal pelvic wall. Metallic prosthesis in the right femur causing adjacent artifact and obscuration of the fine details. Patch of groundglass opacification with tiny nodular densities in left lower lobe. Pleural thickening/trace of pleural effusion on left side. IMPRESSION: 1. Tiny cortical cysts in both kidneys. Stable 2. Focal cortical scarring in the lower pole of the right kidney. Stable. 3. Evidence of cystitis. Clinical and lab correlation are advised. More conspicuous. 4. Small fat-containing umbilical hernia. Unchanged. 5. Edema and mild fat stranding's in the perineum/scrotal region without any air or signs of Mane's gangrene. New 6. Mild fat stranding's also seen in the posterior abdominal pelvic wall. New 7. Patch of groundglass opacification with tiny nodular densities in left lower lobe. Pleural thickening/trace of pleural effusion on left side. New 8. No significant findings suggesting genital infection/Fourniers Electronically signed by Philip Faria 05-30-2024 02:22 AM Chest X-Ray 05/29/24 23:58 EXAM: XR chest 1V portable CLINICAL HISTORY: Sepsis. TECHNIQUE: An X-ray image of the chest is obtained in AP projection. COMPARISON: Prior X-ray chest 05/20/2024. FINDINGS: Pulmonary Pa renchyma: Prominent hilar and perihilar vascular markings suggesting congestion (stable). A faint linear shadow is seen at the left lower lung zone, could represent an atelectatic band (new). The rest of the lungs are clear. No evidence of consolidation. No pulmonary nodules are identified. No evidence of pleural effusion or pleural thickening. Heart and Mediastinum: Heart size and shape are normal. No mediastinal widening or masses. No hilar or mediastinal lymphadenopathy. Bony Thorax: Bony thorax appears intact without fractures or deformities. Bilateral prosthesis at both humeri Soft Tissues: Soft tissues overlying the chest wall are unremarkable. Overlying ECG leads are seen. IMPRESSION: - Prominent vascular markings suggesting congestion (stable). - A faint linear shadow is seen at the left lower lung zone, which could represent an atelectatic band (new). - No acute cardiopulmonary abnormalities are identified. Electronically signed by Philip Faria 05-30-2024 01:41 AM Code Status & VTE Plan Code Status DNR/DNI VTE Prophylaxis Plan VTE Prophylaxis will be ordered: Yes PG Care Time/CCT Total # of Minutes Spent Total Time Spent with Patient: Total time spent is greater than 50% in coordination of care (as documented) at patient's floor/unit and/or counseling patient: Coding Level of Care Code 98228 INT INP/OBS CARE 3/75MIN Diagnoses Sepsis A41.9 Sepsis acute organ dysfunction status: with acute organ dysfunction Severe sepsis acute organ dysfunction type: unspecified Severe sepsis shock status: without septic shock Hypotension I95.9 Cellulitis of groin L03.314 Cystitis N30.90 Candidal balanitis B37.42 Dehydration E86.0 (1) Sepsis Sepsis acute organ dysfunction status: with acute organ dysfunction Severe sepsis acute organ dysfunction type: unspecified Severe sepsis shock status: without septic shock
[2024-05-30] MEDS: NSS + 20MEQ KCL 20 MEQ/1,000 ML BAG IV SCH (05:18)
[2024-05-30] MEDS: DAPTOmycin 600 MG in SYRINGE 0 ML IV ONE (05:19)
[2024-05-30] MEDS: CEFEPIME 2000MG 2,000 MG/20 ML SYR IV STA (05:19)
--- NOTE | 2024-05-30 09:41 | Hospitalist Progress Note ---
Date of Service May 30, 2024 Assessment & Plan (1) SIRS (systemic inflammatory response syndrome): Plan The patient is a 73 year old male with a PMH of afib on Eliquis, hx of DVT, HTN, chronic indwelling Estevez catheter, recent acute pyelonephritis, CAD, chronic venous insufficiency, L5 vertebral fracture presenting to the hospital for groin pain and progressively worsening rash since discharge from [facility] on 05/26/24. He was recently hospitalized from 05/20-05/26/2024 for treatment of pyelonephritis, initially treated with IV daptomycin and cefepime, and then changed to oral Bactrim for discharge. Workup in the emergency department included a CT scan of abdomen pelvis which showed evidence of cystitis, chronic indwelling Estevez catheter, edema and mild fat stranding in the perineal/scrotal region without any air or signs of Mane's gangrene. Mild fat stranding also seen in posterior abdominal pelvic wall. Patchy groundglass opacification with tiny nodular density at the left lower lobe. Pleural thickening and trace of pleural effusion on the left side. No findings suggestive genital infection/Mane's. Patient has been seen by urology in the emergency department. Urology stated there is no crepitus or gas in the soft tissue and no drainable abscess. #SIRS # Cellulitis on the groin -Presented to ED hypotensive (107/53) -Leukocytosis: 11.47 -Contributing sources including not limited to: Cellulitis of groin, penis, scrotum, yeast balanitis, cystitis -Wound care and urology consulted -Status post 3 L normal saline IV fluid bolus in ED -Placed on NSS + KCl 20 mEq at 80 mL/h x 1 additional liter -History of Klebsiella pneumonia UTI on 05/20/2024 Plan: -Daptomycin 500 mg IV daily, has personal history of MRSA -Cefepime 2 g IV Q12H -Begin Nystatin -Follow blood and urine culture / sensitivities Diabetes mellitus Reduce glargine from 7 to 4 units SQ twice daily Placed on Accu-Cheks for NovoLog SSI Target blood glucose goal 100-200 Hold Jardiance CAD/hypertension/persistent atrial fibrillation- Continue apixaban, aspirin, clopidogrel Hold furosemide, metoprolol succinate, doxazosin, potassium chloride due to hypotension Chronic medical conditions: GERD-Continue pantoprazole Hyperlipidemia-continue rosuvastatin Agitation-continue quetiapine FEN: DM 2 , HH Code status: DNR/DNI DVT ppx: Eliquis Dispo: PCU Supervising Physician Co-Signing Physician Notes I personally examined the patient and verified all siddiqi points of history and exam, discussed case, and agree with decision making with Dr Humberto Holcomb and Paola Vega feeling ok no significant pain vitals noted scrotum red no tracking erythema scrotal cellulitis -continue current abx, supportive care Subjective The patient is a 73 year old male with a PMH of afib on Eliquis, hx of DVT, HTN, chronic indwelling Estevez catheter, recent acute pyelonephritis, CAD, chronic venous insufficiency, L5 vertebral fracture presenting to the hospital for groin pain and progressively worsening rash since discharge from [facility] on 05/26/24. The patient was originally unsure as to why he came to the hospital, but later was able to recall that he was in a lot of pain. He was unsure what kind of pain he was in. He did not remember that he had a recent hospital stay until he was reminded of this stay. He was very friendly and did not have any concerns at this moment. When asked about the rash over his penis and inguinal folds, he stated it appeared around 4 days ago and has been progressively getting worse. He does not recall having a rash or pain in his genital region prior to 4 days ago. He denies any fevers and chills. Review of Systems Review of Systems: Constitutional: Denies fever, chills, malaise, weight loss, night sweats HEENT: Denies head pain, headaches. Denies eye pain, vision loss/changes, blurry vision, double vision. Denies ear pain, and hearing loss. Denies sore throat or sore neck or sinus pain. Respiratory: States he has been coughing up a yellow-clear sputum for 1 week. Denies SOB, pleuritic chest pain, wheezing CV: Denies chest pain, heart palpitations, tachycardia, bradycardia, edema GI: Denies abdominal pain, constipation, diarrhea, nausea, vomiting, hematochezia : Denies dysuria, increased urinary frequency, hematuria MSK: Denies joint pain, muscle pain, decreased ROM, Integumentary: States painful rash over genital area. Has bruising over R arm. Neuro: Denies altered mental status, slurred speech, numbness or tingling Psych: Denies symptoms of depression or anxiety. Physical Exam Physical Exam: General: Alert and oriented X2 (Was not oriented to month or year), Well appearing and in no acute distress HEENT: Normocephalic, atraumatic, PERRL, moist mucous membranes, neck is supple, t rachea midline, no lymphadenopathy or thyromegaly appreciated Respiratory: Chest is CTAB without wheezes, rales, or rhonchi. Prolonged expiratory phase. Cardiovascular: Heart has RRR without murmurs, rubs, or gallops. No carotid bruits, JVD, lower extremity edema is present. 2+ radial pulses. Abdomen: Abdomen is hard, nontender, nondistended. No hepatosplenomegaly appreciated. Normoactive bowel sounds. Negative Ahn's and McBurneys. Integumentary: Erythematous rash over the penis, scrotum, inguinal folds. No crepitus or abscess. Upper lip has a chronic scab. Right arm has some bruising. Venous insufficiency along tibia bilaterally. Neurologic: Patient demonstrated some confusion regarding why he was brought to the hospital. 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 No focal neurological deficits. Psychiatric: Appropriate mood and affect. Results & Data Results & Data Vital Signs (Past 12 Hours) Vital Signs Temp Pulse Pulse Resp BP BP Pulse Ox 05/30/24 06:42 81 05/30/24 06:30 87 15 115/51 L 05/30/24 06:00 80 16 104/57 L 05/30/24 05:30 87 20 116/58 L 98 05/30/24 05:30 78 15 166/58 H 05/30/24 05:00 86 16 97/43 L 05/30/24 04:30 87 19 97/45 L 94 05/30/24 04:15 89 16 102/50 L 93 05/30/24 04:00 90 19 100/50 L 94 05/30/24 03:46 86 16 90/39 L 94 05/30/24 03:30 88 18 97/50 L 95 05/30/24 03:15 84 16 103/78 97 05/30/24 03:00 89 16 93/45 L 95 05/30/24 02:48 84 05/30/24 02:30 82 17 99/72 L 98 03/26/25 02:00 85 18 104/59 L 97 05/30/24 01:30 88 18 99/46 L 98 05/30/24 00:45 93 H 18 115/44 L 95 05/30/24 00:00 84 18 97 05/29/24 23:58 80 18 107/53 L 97 05/29/24 23:58 85 18 97 05/29/24 22:42 83 05/29/24 22:25 36.7 C 80 18 97/55 L 97 05/29/24 22:25 36.7 C 87 18 97/55 L 94 O2 Del Method 05/30/24 06:42 05/30/24 06:30 05/30/24 06:00 05/30/24 05:30 05/30/24 05:30 05/30/24 05:00 05/30/24 04:30 05/30/24 04:15 05/30/24 04:00 05/30/24 03:46 05/30/24 03:30 05/30/24 03:15 Room Air 05/30/24 03:00 Room Air 05/30/24 02:48 05/30/24 02:30 Room Air 05/30/24 02:00 Room Air 05/30/24 01:30 Room Air 05/30/24 00:45 Room Air 05/30/24 00:00 Room Air 05/29/24 23:58 Room Air 05/29/24 23:58 Room Air 05/29/24 22:42 05/29/24 22:25 Room Air 05/29/24 22:25 Room Air Resident Activity Tracking Resident Involvement: Resident Care Provided Care Provided: Adult Hospital Medicine
[2024-05-30] MEDS ORDERED: GLUCOSE 10 TAB/TUBE PO PRN (09:47)
[2024-05-30] MEDS ORDERED: CARBOHYDRATES FOR HYPOGLYCEMIA PO PRN (09:47)
[2024-05-30] MEDS ORDERED: GLUCOSE 40% GEL 15 GM TUBE PO PRN (09:47)
[2024-05-30] MEDS ORDERED: DEXTROSE 50% 50 ML SYRINGE IV PRN (09:47)
[2024-05-30] MEDS ORDERED: GLUCAGON FOR INJ 1 MG VIAL SQ PRN (09:47)
--- NOTE | 2024-05-30 10:41 | Electrocardiogram Report ---
Test Reason : Blood Pressure : */* mmHG Vent. Rate : 89 BPM Atrial Rate : 89 BPM P-R Int : 188 ms QRS Dur : 84 ms QT Int : 396 ms P-R-T Axes : 72 68 38 degrees QTcB Int : 481 ms Sinus rhythm with frequent Premature ventricular complexes in a pattern of bigeminy Low voltage QRS Borderline ECG When compared with ECG of 20-May-2024 19:04, Vent. rate has decreased by 44 bpm Criteria for Septal infarct are no longer Present ST no longer depressed in Anterior leads Confirmed by Enio Epperson ([id number]) on 05/30/2024 10:41:10 AM Referred By: REFERRED SELF Confirmed By: Enio Epperson
[2024-05-30] MEDS: ASPIRIN 81 MG ECTAB PO SCH (10:47)
[2024-05-30] MEDS: APIXABAN 5 MG TABLET PO SCH (10:47)
[2024-05-30] MEDS: FOLIC ACID 1 MG TAB PO SCH (10:48)
[2024-05-30] MEDS: LANTUS PER UNIT CHARGE SQ SCH (10:48)
[2024-05-30] MEDS: CLOPIDOGREL BISULFATE 75 MG TAB PO SCH (10:48)
[2024-05-30] MEDS: CHOLECALCIFEROL 25 MCG (1000 UNITS) TAB PO SCH (10:48)
[2024-05-30] MEDS: MULTIVITAMIN TAB PO SCH (10:49)
[2024-05-30] MEDS: NYSTATIN CR 15 GM TUBE EXT SCH (10:49)
[2024-05-30] MEDS: PANTOprazole 40 MG TAB PO SCH (10:49)
[2024-05-30] MEDS: QUEtiapine FUMARATE 25 MG TABLET PO SCH (10:49)
[2024-05-30] MEDS: INSULIN ASPART PER UNIT CHARGE SC SCH (10:53)
--- NOTE | 2024-05-30 11:38 | Urology Progress Note ---
Date of Service May 30, 2024 Assessment & Plan (1) Groin pain: (2) Candidal balanitis: (3) Cellulitis of groin: Plan: 73-year-old male admitted for groin discomfort and scrotal erythema/cellulitis and balanitis. Patient afebrile, hemodynamically stable Labs reviewedcreatinine 1.27, WBC 11.47 Blood cultures pending Urine culture was in the process of being obtained by nursing at the time of my interview No evidence of abscess or Mane's gangrene Continue broad-spectrum antibiotics, narrow based on culture when available Continue with antifungal for balanitis Maintain Estevez catheter No acute intervention at this time will follow Admission and Anticipated Discharge Date Admission Date: May 30, 2024 Subjective Patient seen and examined at bedside. RN present. Patient reports some groin discomfort, but overall improved since arrival. Estevez intact. Denies fever, chills or nausea. Review of Systems Constitutional: as per Subjective / HPI Genitourinary: + as per Subjective / HPI Physical Exam Constitutional: + obese; no acute distress Respiratory: no respiratory distress and no labored breathing Gastrointestinal (Abdomen): Inspection/Auscultation: abdomen normal to inspection Musculoskeletal: Head/Neck/Chest: normocephalic Neurologic: moves all extremities and awake Psychiatric: Orientation: alert and oriented x 3 Genitourinary: Estevez draining clear yellow urine RN assisted with exam. Difficult exam secondary to body habitus and patient's pain. Patient has erythema in bilateral inguinal folds. Scrotum/perineum with erythema. Tender to palpation. No crepitus noted. Results & Data Vital Signs (Past 12 Hours) Vital Signs Temp Pulse Pulse Resp BP BP Pulse Ox 05/30/24 09:25 05/30/24 09:25 36.7 C 70 18 121/61 93 05/30/24 08:34 75 18 105/52 L 98 05/30/24 06:42 81 05/30/24 06:30 87 15 115/51 L 05/30/24 06:00 80 16 104/57 L 05/30/24 05:30 87 20 116/58 L 98 05/30/24 05:30 78 15 166/58 H 05/30/24 05:00 86 16 97/43 L 05/30/24 04:30 87 19 97/45 L 94 05/30/24 04:15 89 16 102/50 L 93 05/30/24 04:00 90 19 100/50 L 94 05/30/24 03:46 86 16 90/39 L 94 05/30/24 03:30 88 18 97/50 L 95 05/30/24 03:15 84 16 103/78 97 05/30/24 03:00 89 16 93/45 L 95 05/30/24 02:48 84 05/30/24 02:30 82 17 99/72 L 98 05/30/24 02:00 85 18 104/59 L 97 05/30/24 01:30 88 18 99/46 L 98 05/30/24 00:45 93 H 18 115/44 L 95 05/30/24 00:00 84 18 97 05/29/24 23:58 80 18 107/53 L 97 05/29/24 23:58 85 18 97 O2 Del Method 05/30/24 09:25 Room Air 05/30/24 09:25 Room Air 05/30/24 08:34 Room Air 05/30/24 06:42 05/30/24 06:30 05/30/24 06:00 05/30/24 05:30 05/30/24 05:30 05/30/24 05:00 05/30/24 04:30 05/30/24 04:15 05/30/24 04:00 05/30/24 03:46 05/30/24 03:30 05/30/24 03:15 Room Air 05/30/24 03:00 Room Air 05/30/24 02:48 05/30/24 02:30 Room Air 05/30/24 02:00 Room Air 05/30/24 01:30 Room Air 05/30/24 00:45 Room Air 05/30/24 00:00 Room Air 05/29/24 23:58 Room Air 05/29/24 23:58 Room Air PG Care Time/CCT Total # of Minutes Spent Total Time Spent with Patient: Total time spent is greater than 50% in coordination of care (as documented) at patient's floor/unit and/or counseling patient: Coding Level of Care Code None Diagnoses Groin pain R10.30 Candidal balanitis B37.42 Cellulitis of groin L03.314
[2024-05-30] MEDS: ACETAMINOPHEN 325 MG TAB PO PRN (17:11)
[2024-05-30] MEDS: CEFEPIME 2000MG 2,000 MG/20 ML SYR IV SCH (17:11)
[2024-05-30] MEDS: MELATONIN 3 MG TAB PO SCH (20:11)
[2024-05-30] MEDS: FUROSEMIDE 20 MG TAB PO SCH (20:12)
[2024-05-30] MEDS: ROSUVASTATIN CALCIUM 20 MG TAB PO SCH (20:12)
[2024-05-31] MEDS: DAPTOmycin 500 MG in SYRINGE 0 ML IV SCH (06:11)
[2024-05-31 06:47] LABS: Basophils # (auto) 0.13 K/uL (0.00-0.20); Basophils % (auto) 1.2 %; Eosinophils # (auto) 0.45 K/uL (0.00-0.50); Eosinophils % (auto) 4.2 %; Hematocrit (blood only) 41.4 % (42.0-52.0); Hemoglobin 14.1 g/dl (14.0-18.0); Immature Granulocytes # (auto) 0.13 K/uL (0.01-0.20); Immature Granulocytes % (auto) 1.2 %; Lymphocytes # (auto) 1.12 K/uL (1.20-3.40); Lymphocytes % (auto) 10.5 %; Mean Corpuscular Hemoglobin 30.6 pg (25.0-34.0); Mean Corpuscular Hgb Conc 34.1 g/dL (32.0-36.0); Mean Corpuscular Volume 89.8 fL (80.0-100.0); Mean Platelet Volume 9.7 fL (9.4-12.4); Monocytes # (auto) 1.03 K/uL (0.11-0.59); Monocytes % (auto) 9.7 %; Neutrophils # (auto) 7.79 K/uL (1.40-6.50); Neutrophils % (auto) 73.2 %; Platelet Count 281 K/uL (130-400); RDW Coefficient of Variation 14.7 % (11.5-14.5); RDW Standard Deviation 47.8 fL (36.4-46.3); Red Blood Count 4.61 M/uL (4.70-6.10); White Blood Count 10.65 K/ul (4.8-10.8)
[2024-05-31 07:06] LABS: Albumin Level 3.3 gm/dl (3.4-5.0); BUN Creatinine Ratio 19.5 (10-20); Calcium 8.4 mg/dl (8.6-10.3); Creatinine Clr Calc Pharmacy 91.2 ml/min; Phosphorus 2.9 mg/dl (2.5-4.9); Potassium 4.1 mmol/L (3.5-5.1)
[2024-05-31 07:34] LABS: Estimated Average Glucose 146 mg/dl; Hemoglobin A1C 6.7 % (4.5-5.6)
--- NOTE | 2024-05-31 09:21 | Urology Progress Note ---
Date of Service May 31, 2024 Assessment & Plan (1) Candidal balanitis: (2) Cellulitis of groin: (3) Scrotal erythema: (4) Groin pain: Plan: 73-year-old male admitted for groin discomfort and scrotal erythema/cellulitis and balanitis. Patient afebrile, hemodynamically stable Labs reviewedcreatinine 0.87, WBC 10.65 Blood cultures with no growth x 24 hours Urine culture pending No evidence of abscess or Fourniere's; exam stable Continue broad-spectrum antibiotics, narrow based on culture data when available Continue with antifungals for balanitis Maintain Estevez catheter No acute intervention at this time will follow Admission and Anticipated Discharge Date Admission Date: May 30, 2024 Subjective Patient seen and examined at bedside this morning. He is awake, alert and sitting up in bed. Reports some scrotal/groin discomfort, no worsening. No fever or chills. No nausea or vomiting. Estevez intact. Review of Systems Constitutional: as per Subjective / HPI Genitourinary: + as per Subjective / HPI Physical Exam Constitutional: + obese; no acute distress Respiratory: no respiratory distress and no labored breathing Gastrointestinal (Abdomen): Inspection/Auscultation: abdomen normal to inspection Musculoskeletal: Head/Neck/Chest: normocephalic Neurologic: moves all extremities and awake Psychiatric: Orientation: alert, oriented to person and cooperative confused at times Genitourinary: Estevez draining clear yellow urine Erythema in bilateral inguinal folds. Uncircumcised penis with foreskin in anatomic position. Scrotum with erythema/edema. Patient log rolled to better examine perineum, which was erythematous. No areas of fluctuance or crepitus appreciated to scrotum or perineum. Tender to palpation. Topical cream covering erythematous areas. Results & Data Vital Signs (Past 12 Hours) Vital Signs Temp Pulse Pulse Resp BP BP Pulse Ox 05/31/24 07:30 76 05/31/24 07:18 36.6 C 90 19 112/61 93 05/31/24 03:49 36.5 C 86 16 120/59 L 93 05/30/24 22:59 36.7 C 79 18 125/62 94 05/30/24 22:47 73 O2 Del Method 05/31/24 07:30 05/31/24 07:18 Room Air 05/31/24 03:49 Room Air 05/30/24 22:59 Room Air 05/30/24 22:47 PG Care Time/CCT Total # of Minutes Spent Total Time Spent with Patient: Total time spent is greater than 50% in coordination of care (as documented) at patient's floor/unit and/or counseling patient: Coding Level of Care Code 72721 SUB INP/OBS CARE 03/31MIN Diagnoses Candidal balanitis B37.42 Cellulitis of groin L03.314 Scrotal erythema N50.89 Groin pain R10.30
--- NOTE | 2024-05-31 10:05 | Hospitalist Progress Note ---
Date of Service May 31, 2024 Assessment & Plan (1) SIRS (systemic inflammatory response syndrome): Plan The patient is a 73 year old male with a PMH of afib on Eliquis, hx of DVT, HTN, chronic indwelling Estevez catheter, recent acute pyelonephritis, CAD, chronic venous insufficiency, L5 vertebral fracture presenting to the hospital for groin pain and progressively worsening rash since discharge from [facility] on 05/26/24. He was recently hospitalized from 05/20-05/26/2024 for treatment of pyelonephritis, initially treated with IV daptomycin and cefepime, and then changed to oral Bactrim for discharge. Workup in the emergency department included a CT scan of abdomen pelvis which showed evidence of cystitis, chronic indwelling Estevez catheter, edema and mild fat stranding in the perineal/scrotal region without any air or signs of Mane's gangrene. Mild fat stranding also seen in posterior abdominal pelvic wall. Patchy groundglass opacification with tiny nodular density at the left lower lobe. Pleural thickening and trace of pleural effusion on the left side. No findings suggestive genital infection/Mane's. Patient has been seen by urology in the emergency department. Urology stated there is no crepitus or gas in the soft tissue and no drainable abscess. Cellulitis of scrotum -SIRS + Leukocytosis + hypotense on admission -Blood Culture 05/30/24: No growth after 24hrs. -Wound care and urology consulted, aprec recommendation Plan: -Daptomycin 500 mg IV daily, has personal history of MRSA -Cefepime 2 g IV Q12H -Continue IV antibiotics until cultures clear for 48 hours. Then transition to doxycycline and Augmentin -Continue Nystatin #Abdominal Pain 2/2 constipation -Abdomen is firm and tender to palpation in the LUQ -No BM during admission -CT Abdomen 05/29: Demonstrated large volume of stool Plan: -Miralax sliding scale: 3-5 doses. Hx of DVT: -LLE pain along the tibia -Venous Doppler 05/20:DVT within the deep duplicated left superficial femoral vein. No other DVT seen in the LLE. -On Eliquis 5mg BID Diabetes mellitus Reduce glargine from 7 to 4 units SQ twice daily Placed on Accu-Cheks for NovoLog SSI Target blood glucose goal 100-200 Hold Jardiance CAD/hypertension/persistent atrial fibrillation- Continue apixaban, aspirin, clopidogrel Hold furosemide, metoprolol succinate, doxazosin, potassium chloride due to hypotension Chronic medical conditions: GERD-Continue pantoprazole Hyperlipidemia-continue rosuvastatin Agitation-continue quetiapine FEN: DM2 Code status: DNR/DNI DVT ppx: Eliquis PT/OT: Consulted Dispo: med/surg Admission and Anticipated Discharge Date Admission Date: May 30, 2024 Supervising Physician Co-Signing Physician Notes I personally examined the patient and verified all siddiqi points of history and exam, discussed case, and agree with decision making with Dr Humberto Holcomb and Paola Vega MS2 feeling ok no significant pain vitals noted redness on scrotum/thighs improving. scrotal cellulitis -continue current abx, supportive care; anticipate f/u cultures likely to be negative - if ongoing improvement and OK w urology - consider d/c 06/01 on doxy/augmentin Subjective The patient is a 73 year old male with a PMH of afib on Eliquis, hx of DVT, HTN, chronic indwelling Estevez catheter, recent acute pyelonephritis, CAD, chronic venous insufficiency, L5 vertebral fracture presenting to the hospital for groin pain and progressively worsening rash since discharge from [facility] on 05/26/24. New Events: The patient had no concerns today. He stated that he slept well and that his appetite has been good. He was confused about how he was going to get home as he thought the hospital he was in was in [place]. He states that his genital rash is still painful but has improved a little bit. Review of Systems Review of Systems: Constitutional: Denies fever, chills, malaise, weight loss, night sweats HEENT: Denies head pain, headaches. Denies eye pain, vision loss/changes, blurry vision, double vision. Denies ear pain, and hearing loss. Denies sore throat or sore neck or sinus pain. Respiratory: States he has been coughing up a yellow-clear sputum for 1 week. Denies SOB, pleuritic chest pain, wheezing CV: Denies chest pain, heart palpitations, tachycardia, bradycardia, edema GI: Denies abdominal pain, constipation, diarrhea, nausea, vomiting, aidee tochezia : Denies dysuria, increased urinary frequency, hematuria MSK: Denies joint pain, muscle pain, decreased ROM, Integumentary: States painful rash over genital area. Has bruising over R arm. Neuro: Denies, slurred speech, numbness or tingling Psych: Denies symptoms of depression or anxiety. Physical Exam Physical Exam: General: Alert and oriented X1 (Was not place or date. He did know month and year today), Well appearing and in no acute distress HEENT: Normocephalic, atraumatic, PERRL, moist mucous membranes, neck is supple, trachea midline, no lymphadenopathy or thyromegaly appreciated Respiratory: Chest is CTAB without wheezes, rales, or rhonchi. Prolonged expiratory phase. Cardiovascular: Heart has RRR without murmurs, rubs, or gallops. No carotid bruits, JVD, lower extremity edema is present. 2+ radial pulses. Abdomen: Abdomen is mildly tender in the LUQ, hard, nondistended. No hepatosplenomegaly appreciated. Normoactive bowel sounds. Negative Ahn's and McBurneys. Integumentary: Erythematous rash over the penis, scrotum, inguinal folds. No crepitus or abscess. Upper lip has a chronic scab. Right arm has some bruising. Venous insufficiency along tibia bilaterally. Extremities: -Tender to palpation along the left tibi a. Neurologic: Patient demonstrated some confusion regarding why he was brought to the hospital. 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 No focal neurological deficits. Psychiatric: Appropriate mood and affect. Results & Data Results & Data Vital Signs (Past 12 Hours) Vital Signs Temp Pulse Pulse Resp BP Pulse Ox O2 Del Method 05/31/24 03:49 36.5 C 86 16 120/59 L 93 Room Air 05/30/24 22:59 36.7 C 79 18 125/62 94 Room Air 05/30/24 22:47 73 05/30/24 20:21 Room Air 05/30/24 19:41 37.0 C 79 18 110/65 93 Room Air Resident Activity Tracking Resident Involvement: Resident Care Provided Care Provided: Adult Hospital Medicine
[2024-05-31] MEDS: POLYETHYLENE (MIRALAX) 17 GM PACK PO SCH (11:51)
[2024-05-31] MEDS: DICLOFENAC SOD 1% GEL 100 GM TUBE EXT SCH (12:11)
[2024-05-31] MEDS: DOCUSATE SODIUM/SENNA 50/8.6MG TAB PO PRN (12:37)
--- NOTE | 2024-05-31 12:49 | Billing Data ---
Date of Service May 31, 2024 Coding Level of Care Code 70003 SUB INP/OBS CARE MIN
[2024-05-31] MEDS: POLYETHYLENE (MIRALAX) 17 GM PACK PO STA (16:14)
[2024-06-01 08:05] LABS: Basophils # (auto) 0.12 K/uL (0.00-0.20); Eosinophils # (auto) 0.75 K/uL (0.00-0.50); Eosinophils % (auto) 6.1 %; Hematocrit (blood only) 42.3 % (42.0-52.0); Hemoglobin 14.8 g/dl (14.0-18.0); Immature Granulocytes # (auto) 0.14 K/uL (0.01-0.20); Immature Granulocytes % (auto) 1.1 %; Lymphocytes # (auto) 0.94 K/uL (1.20-3.40); Lymphocytes % (auto) 7.6 %; Mean Corpuscular Hemoglobin 30.8 pg (25.0-34.0); Mean Corpuscular Volume 87.9 fL (80.0-100.0); Mean Platelet Volume 9.4 fL (9.4-12.4); Monocytes # (auto) 1.12 K/uL (0.11-0.59); Monocytes % (auto) 9.1 %; Neutrophils # (auto) 9.27 K/uL (1.40-6.50); Neutrophils % (auto) 75.1 %; Platelet Count 314 K/uL (130-400); RDW Coefficient of Variation 14.3 % (11.5-14.5); RDW Standard Deviation 45.9 fL (36.4-46.3); Red Blood Count 4.81 M/uL (4.70-6.10); White Blood Count 12.34 K/ul (4.8-10.8)
[2024-06-01 08:23] LABS: Albumin Level 3.5 gm/dl (3.4-5.0); BUN Creatinine Ratio 20.5 (10-20); Calcium 8.7 mg/dl (8.6-10.3); Creatinine Clr Calc Pharmacy 93.8 ml/min; Phosphorus 3.1 mg/dl (2.5-4.9); Potassium 4.1 mmol/L (3.5-5.1)
--- NOTE | 2024-06-01 10:09 | Hospitalist Progress Note ---
Date of Service June 01, 2024 Assessment & Plan (1) SIRS (systemic inflammatory response syndrome): Plan 73 y/o with a PMHx of a fib on Eliquis, hx of DVT, HTN, and chronic indwelling Estevez who presented with concern for cellulitis now stable for discharge back to [facility] on oral antibiotics. #Scrotal cellulitis Initially there was concern for Mane's due to location, but CT without evidence of this. Urology was consulted. Septic on admission from scrotal cellulitis. Adequately fluid resuscitated. Sepsis has resolved. BCx with NGTD x 48H. Initially on dapto/cefepime for MRSA/pseudomonas coverage. Switched to doxy/Augmentin 06/01. Will continue with 14 days total of antibiotics. Continue nystatin powder for antifungals #Constipation #Abdominal Pain Patient with significant stool burden on CT A&P 05/29. MiraLAX with a goal of 1-2 soft formed bowel movements daily. #Hx of DVT: DVT found 05/20. On Eliquis 5 mg BID. #Diabetes mellitus Basal 4 units SQ BID with bolus coverage. Holding home meds for now #CAD/hypertension/persistent atrial fibrillation- Continue apixaban, aspirin, clopidogrel, furosemide. Currently holding metop and doxazosin as patient with mild hypotension. #Chronic Estevez Was hospitalized 05/20-05/26 for pyelo treated with dapto/pime and then Bactrim on d/c Chronic medical conditions: GERD - continue pantoprazole Hyperlipidemia - continue rosuvastatin Agitation - continue quetiapine FEN: DM2 Code status: DNR/DNI DVT ppx: Eliquis PT/OT: Consulted Dispo: med/surg, can return to [facility] as he's at baseline function Admission and Anticipated Discharge Date Admission Date: May 30, 2024 Supervising Physician Co-Signing Physician Notes I personally examined the patient and verified all siddiqi points of history and exam, discussed case, and agree with decision making with Dr Leija resting comfortably. awaiting PT input and then discussions w [facility] re disposition. vitals noted resting comfortably nad heent nc at mmm breathing unlabored no acccessory muscles good effort. wound images reviewed/noted/appreciated scrotal cellulitis -continue abx coverage - given no findings on cultures, and no evidence of erosive infection/etc - transition to PO augmentin/doxy. dispo based on PT input and [facility] judgement on ability to care for him in current state Subjective Patient seen at bedside. Pleasantly demented. Knows he has a groin infection. Thinks its been improving. Review of Systems 2 Review of Systems: See HPI Physical Exam 2 Physical Exam: Gen: elderly appearing patient in NAD HEENT: AT NC MMM Resp: CTAB no wheezing no increased work of breathing CV: RRR no m/r/g clinically well perfused Abd: +BS, soft, non-tender, non-distended MSK: no obvious deformities Skin: no rashes or bruising Neuro: alert and oriented Psych: pleasantly demented, oriented really to self only Results & Data Results & Data Vital Signs (Past 12 Hours) Vital Signs Temp Pulse Resp BP Pulse Ox O2 Del Method 06/01/24 08:10 36.4 C L 74 16 99/61 L 91 Room Air 05/31/24 23:20 Room Air 05/31/24 23:20 36.4 C L 61 16 116/70 94 Room Air Laboratory Results 06/01/24 07:46 06/01/24 07:46 Diagnostic Findings Microbiology 05/30/24 10:40 Urine,Indwelling Cath Urine Culture - Final No growth - less than 1,000 colonies/mL. 05/30/24 00:00 Blood Aerobic Blood Culture - Preliminary No growth in Aerobic bottle after 48 hours. 05/30/24 00:00 Blood Anaerobic Blood Culture - Preliminary No growth in Anaerobic bottle after 48 hours. 05/30/24 00:06 Blood Aerobic Blood Culture - Preliminary No growth in Aerobic bottle after 48 hours. 05/30/24 00:06 Blood Anaerobic Blood Culture - Preliminary No growth in Anaerobic bottle after 48 hours. Resident Activity Tracking Resident Involvement: Resident Care Provided Care Provided: Adult Hospital Medicine
--- NOTE | 2024-06-01 13:09 | Billing Data ---
Date of Service June 01, 2024 Coding Level of Care Code 64805 SUB INP/OBS CARE MIN
--- NOTE | 2024-06-01 13:56 | Urology Progress Note ---
Date of Service June 01, 2024 Assessment & Plan (1) Cellulitis of groin: (2) Candidal balanitis: (3) Scrotal erythema: (4) Groin pain: Plan: 73-year-old male admitted for groin discomfort and scrotal erythema/cellulitis and balanitis. Patient afebrile, hemodynamically stable Labs reviewedcreatinine 0.87, WBC 10.65 Blood cultures with no growth to date Urine culture with no growth No evidence of abscess or Fourniere's on imaging Continue antibiotics and antifungals Maintain Estevez catheter No acute intervention warranted will sign off, recall as needed Admission and Anticipated Discharge Date Admission Date: May 30, 2024 Subjective Patient seen and examined at bedside. He is awake and resting in bed. Denies pain at present. No fever or chills. Estevez draining clear urine. Review of Systems Constitutional: as per Subjective / HPI Genitourinary: + as per Subjective / HPI Physical Exam Constitutional: + obese; no acute distress Respiratory: no respiratory distress and no labored breathing Gastrointestinal (Abdomen): Inspection/Auscultation: abdomen normal to inspection Musculoskeletal: Head/Neck/Chest: normocephalic Neurologic: moves all extremities and awake Psychiatric: Orientation: alert, oriented to person and cooperative confused at times Genitourinary: Estevez draining clear yellow urine Erythema in bilateral inguinal folds. Uncircumcised penis with foreskin in anatomic position. Scrotum/perineum with erythema. No areas of fluctuance or crepitus appreciated to scrotum or perineum. Tender to palpation. Topical cream covering erythematous areas. Results & Data Vital Signs (Past 12 Hours) Vital Signs Temp Pulse Resp BP Pulse Ox O2 Del Method 06/01/24 08:10 36.4 C L 74 16 99/61 L 91 Room Air PG Care Time/CCT Total # of Minutes Spent Total Time Spent with Patient: Total time spent is greater than 50% in coordination of care (as documented) at patient's floor/unit and/or counseling patient: Coding Level of Care Code 54573 SUB INP/OBS CARE 03/31MIN Diagnoses Cellulitis of groin L03.314 Candidal balanitis B37.42 Scrotal erythema N50.89 Groin pain R10.30
[2024-06-01] MEDS: AMOXICILLIN/CLAVULANATE 875 MG TAB PO SCH (17:28)
[2024-06-01] MEDS: DOXYCYCLINE HYCLATE 100 MG CAP PO SCH (20:10)
--- NOTE | 2024-06-02 07:00 | Hospitalist Progress Note ---
Date of Service June 02, 2024 Assessment & Plan (1) SIRS (systemic inflammatory response syndrome): Plan 73 y/o with a PMHx of a fib on Eliquis, hx of DVT, HTN, and chronic indwelling Estevez who presented with concern for cellulitis now stable for discharge back to [facility] on oral antibiotics. #Scrotal cellulitis Initially there was concern for Mane's due to location, but CT without evidence of this. Urology was consulted. Septic on admission from scrotal cellulitis. Adequately fluid resuscitated. Sepsis has resolved. BCx with NGTD x 48H. Initially on dapto/cefepime for MRSA/pseudomonas coverage. Switched to doxy/Augmentin 06/01. Will continue with 14 days total of antibiotics. Continue nystatin powder for antifungals #Constipation #Abdominal Pain Patient with significant stool burden on CT A&P 05/29. MiraLAX with a goal of 1-2 soft formed bowel movements daily. #Hx of DVT: DVT found 05/20. On Eliquis 5 mg BID. #Diabetes mellitus Basal 4 units SQ BID with bolus coverage. Holding home meds for now #CAD/hypertension/persistent atrial fibrillation- Continue apixaban, aspirin, clopidogrel, furosemide. Currently holding metop and doxazosin as patient with mild hypotension. #Chronic Estevez Was hospitalized 05/20-05/26 for pyelo treated with dapto/pime and then Bactrim on d/c Chronic medical conditions: GERD - continue pantoprazole Hyperlipidemia - continue rosuvastatin Agitation - continue quetiapine FEN: DM2 Code status: DNR/DNI DVT ppx: Eliquis PT/OT: Consulted Dispo: med/surg, can return to [facility] as he's at baseline function Admission and Anticipated Discharge Date Admission Date: May 30, 2024 Supervising Physician Co-Signing Physician Notes I personally examined the patient and verified all siddiqi points of history and exam, discussed case, and agree with decision making with Dr Washington feeling ok no pain. awaiting return to [facility] but unfortunately they can't take him back until tuesday. vitals noted resting comfortably nad heent nc at mmm breathing unlabored no acccessory muscles good effort. erythema in groin/thighs nearly resolved. scrotal cellulitis -PO augmentin/doxy (since 06/01) - continues to improve. return to [facility] once they're able to take him back (likely tuesday) otherwise as above Subjective Patient seen at bedside. Pleasantly demented. Knows he has a groin infection. Pending returning home to personal-nursing home. Review of Systems Review of Systems: All systems reviewed & are unremarkable except as noted in Subjective Physical Exam Physical Exam: Gen: elderly appearing patient in NAD HEENT: AT NC MMM Resp: CTAB no wheezing no increased work of breathing CV: RRR no m/r/g clinically well perfused Abd: +BS, soft, non-tender, non-distended MSK: no obvious deformities Skin: no rashes or bruising Neuro: alert and oriented Psych: pleasantly demented, oriented really to self only Results & Data Results & Data Vital Signs (Past 12 Hours) Vital Signs Temp Pulse Resp BP Pulse Ox O2 Del Method 06/01/24 20:14 36.6 C 61 16 104/60 94 Room Air 06/01/24 19:55 Room Air Resident Activity Tracking Resident Involvement: Resident Care Provided Care Provided: Adult Hospital Medicine
[2024-06-02 07:30] LABS: Basophils # (auto) 0.11 K/uL (0.00-0.20); Basophils % (auto) 1.1 %; Eosinophils # (auto) 0.77 K/uL (0.00-0.50); Eosinophils % (auto) 7.9 %; Hematocrit (blood only) 46.4 % (42.0-52.0); Lymphocytes # (auto) 0.96 K/uL (1.20-3.40); Lymphocytes % (auto) 9.9 %; Mean Corpuscular Hemoglobin 30.8 pg (25.0-34.0); Mean Corpuscular Hgb Conc 34.5 g/dL (32.0-36.0); Mean Corpuscular Volume 89.4 fL (80.0-100.0); Mean Platelet Volume 9.5 fL (9.4-12.4); Monocytes # (auto) 0.84 K/uL (0.11-0.59); Monocytes % (auto) 8.7 %; Neutrophils # (auto) 6.93 K/uL (1.40-6.50); Neutrophils % (auto) 71.4 %; Platelet Count 308 K/uL (130-400); RDW Coefficient of Variation 14.1 % (11.5-14.5); RDW Standard Deviation 45.6 fL (36.4-46.3); Red Blood Count 5.19 M/uL (4.70-6.10); White Blood Count 9.71 K/ul (4.8-10.8)
[2024-06-02 07:40] LABS: Albumin Level 3.7 gm/dl (3.4-5.0); BUN Creatinine Ratio 23.5 (10-20); Calcium 8.8 mg/dl (8.6-10.3); Creatinine Clr Calc Pharmacy 91.6 ml/min; Phosphorus 3.6 mg/dl (2.5-4.9); Potassium 3.9 mmol/L (3.5-5.1)
--- NOTE | 2024-06-02 15:19 | Billing Data ---
Date of Service June 02, 2024 Coding Level of Care Code 12757 SUB INP/OBS CARE
--- NOTE | 2024-06-03 09:17 | Hospitalist Progress Note ---
Date of Service June 03, 2024 Assessment & Plan (1) SIRS (systemic inflammatory response syndrome): Plan 73 y/o with a PMHx of a fib on Eliquis, hx of DVT, HTN, and chronic indwelling Estevez who presented with concern for cellulitis now stable for discharge back to [facility] on oral antibiotics. Likely discharge to [facility] on Sunday 06/04; if discharged on Tuesday, would need to continue doxycycline and Augmentin until 06/14. #Scrotal cellulitis Initially there was concern for Mane's due to location, but CT without evidence of this. Urology was consulted. Septic on admission from scrotal cellulitis. Adequately fluid resuscitated. Sepsis has resolved. BCx with NGTD x 48H. Initially on dapto/cefepime for MRSA/pseudomonas coverage. Switched to doxy/Augmentin 06/01. Will continue with 14 days total of antibiotics. Continue nystatin powder for antifungals #Constipation/Abdominal Pain Patient with significant stool burden on CT A&P 05/29. MiraLAX with a goal of 1-2 soft formed bowel movements daily. #Hx of DVT: DVT found 05/20 Continue Eliquis 5 mg p.o. BID #Diabetes mellitus Basal 4 units SQ BID with bolus coverage. Holding home meds for now #CAD/hypertension/persistent atrial fibrillation- Continue apixaban, aspirin, clopidogrel, furosemide. Currently holding metop and doxazosin as patient with mild hypotension. #Chronic Estevez Was hospitalized 05/20-05/26 for pyelo treated with dapto/pime and then Bactrim on d/c Chronic medical conditions: GERD - continue pantoprazole Hyperlipidemia - continue rosuvastatin Agitation - continue quetiapine FEN: DM2 Code status: DNR/DNI DVT ppx: Eliquis PT/OT: Consulted Dispo: med/surg, can return to [facility] as he's at baseline function Admission and Anticipated Discharge Date Admission Date: May 30, 2024 Supervising Physician Co-Signing Physician Notes chart reviewed, case d/w Paola Barrera PA-C - as above. Godo Ashby is resting comfortably in bed, and has no new complaints at this time. He reports that he slept well last night. He is eating and drinking okay. His only complaint is intermittent left hip pain, which he rates as 9/10 whenever he tries to get up and move it around. No numbness or tingling going down his left leg. ROS: Patient endorses left hip pain with movements. Patient denies fever, chills, night sweats, chest pain, chest palpitations, pleuritic CP, SOB, abdominal pain, N/V/D, or numbness or tingling in the legs. Review of Systems Review of Systems: See HPI above Physical Exam Physical Exam: General: no acute distress; pleasant affect; non-toxic appearing; well- nourished; cooperative; SpO2 94% on RA HEENT: normocephalic, atraumatic; vision intact; hard of hearing Neck: supple; no lymphadenopathy; trachea midline Skin: warm, dry without signs of tenting; no cyanosis; no rashes, bruising, lesions, or erythema noted CV: chest wall NTP; RRR; S1/S2 normal; no murmurs/rubs/gallops; pulses intact and symmetric at radial, DP, and PT Lungs: no acute respiratory distress; symmetrical chest wall expansion; clear breath sounds across all lung garcia w/o adventitious sounds; no wheezing ABD: Soft, NTP; BS present; no rebound/guarding; no distention Left hip: Mildly TTP; no signs of rashes or bruising : Estevez catheter in place draining orange-colored urine MSK: no tics or fasciculations; no edema noted in the LEs b/l, nonerythematous Neuro: A&Ox3; normal mood and affect; fluent speech; no focal deficits; sensation grossly intact in the LEs b/l Results & Data Results & Data Vital Signs (Past 12 Hours) Vital Signs Temp Pulse Resp BP Pulse Ox O2 Del Method 06/03/24 07:23 36.7 C 62 17 98/61 L 93 Room Air 06/02/24 21:45 Room Air PG Care Time/CCT Total # of Minutes Spent Total Time Spent with Patient: Total time spent is greater than 50% in coordination of care (as documented) at patient's floor/unit and/or counseling patient: Coding [place] [address] SUB INP/OBS CARE 03/31MIN Patient Type Established History Detailed Exam Detailed Medical Decision Making Low Complexity Diagnoses SIRS (systemic inflammatory response syndrome) R65.10
[2024-06-03 20:13] VITALS: TEMP 97.3
[2024-06-04 07:53] VITALS: PULSE 76; RESP 16; O2SAT 90
[2024-06-04 11:57] VITALS: BP 98/61
--- NOTE | 2024-06-04 14:19 | Discharge Summary ---
Date of Service June 04, 2024 Admission HPI Per Admitting Provider The patient is a 73-year-old male with a past medical history including chronic indwelling Foote catheter, recent acute pyelonephritis, L5 vertebral fracture, cognitive impairment, morbid obesity, self-care deficit, history of DVT, atrial fibrillation on Eliquis, CAD, history of bilateral hip replacements, history of venous stasis ulcer right lower leg, chronic venous insufficiency, history of venous stasis ulcer, and hypertension. The patient was most recently mated to [facility] from 05/20-05/26/2024 for treatment of pyelonephritis, initially treated with IV daptomycin and cefepime, and then changed to oral Bactrim for discharge.The patient presents to the emergency department with complaint of groin pain, progressively worsening rash since discharge from hospital on 05/26/2024. Workup in the emergency department included a CT scan of abdomen pelvis which showed evidence of cystitis, chronic indwelling Foote catheter, edema and mild fat stranding in the perineal/scrotal region without any air or signs of Mane's gangrene. Mild fat stranding also seen in posterior abdominal pelvic wall. Patchy groundglass opacification with tiny nodular density at the left lower lobe. Pleural thickening and trace of pleural effusion on the left side. No findings suggestive genital infection/Mane's. Admission Exam Per Admitting Provider The patient is awake, alert and oriented 3, well developed and well nourished, normocephalic and atraumatic, lying in bed and in no acute distress. HEENT--PERRL, EOMI, mucous membranes and oropharynx mildly dry. Neck--supple. No JVD. No bruits. Thyroid normal, trachea midline, no adenopathy. Heart--normal S1 and S2. No murmurs, rubs or gallops. Lungs--clear bilaterally, no respiratory distress, no accessory muscle use. Abdomen--normal bowel sounds and soft. Nontender. Nondistended, no hernias or masses, no organomegaly. Extremities--no cyanosis or clubbing. No edema. There are good distal pulses b/l. Dermatologic--mild erythema involving penis, scrotal area, inner thighs bilaterally, perineum. Balanitis involving head of penis and shaft suggesting yeast. No crepitus Neurologic--cranial nerves II through XII grossly intact. Rheumatologic--normal range of motion. Psychiatric--normal affect. Principal Diagnosis SIRS 2/2 scrotal cellulitis Discharge Exam General: patient resting comfortably, NAD, non-toxic in appearance, answers questions appropriately. Skin: warm, dry, intact HEENT: NC/AT, anicteric sclera, conjunctiva without injection, moist mucus membranes. Heart: +S1/S2, regular, no m/r/g Lungs: equal air entry bilaterally, no rales/rhonchi/wheezes Abd: +BS, soft, NT/ND Ext: warm, no clubbing/cyanosis or edema Neuro: nonfocal, speech intact, no facial droop, moving all extremities. Discharge Data Allergies Allergy/AdvReac Type Severity Reaction Status Date / Time No Known Allergies Allergy Verified 05/30/24 00:03 Consultations 05/30/24 04:18 ED Decision to Admit Stat 05/30/24 04:33 Consult Urology Stat Ordered Studies 05/29/24 23:58 CT abd pelvis IV con only Stat Hospital Course (1) SIRS (systemic inflammatory response syndrome): (2) Sepsis: (3) Dehydration: (4) Candidal balanitis: (5) Cellulitis of groin: (6) Scrotal erythema: (7) Chronic indwelling Foote catheter: Plan 73 y/o with a PMHx of a fib on Eliquis, hx of DVT, HTN, and chronic indwelling F oley who presented with concern for cellulitis now stable for discharge back to [facility] on oral antibiotics. #Scrotal cellulitis/SIRS Initially there was concern for Mane's due to location, but CT without evidence of this. Urology was consulted. Septic on admission from scrotal cellulitis. Adequately fluid resuscitated. Sepsis has resolved. BCx with NGTD x 48H. Initially on dapto/cefepime for MRSA/pseudomonas coverage. Switched to doxy/Augmentin 06/01. Will continue with 14 days total of antibiotics. Continue nystatin powder for antifungals. Day 614 of antibiotic therapy today, d/c with Augmentin/Doxycycline prescriptions. #Constipation #Abdominal Pain Patient with significant stool burden on CT A&P 05/29. MiraLAX with a goal of 1-2 soft formed bowel movements daily. #Hx of DVT: DVT found 05/20. On Eliquis 5 mg BID. #Diabetes mellitus Basal 4 units SQ BID with bolus coverage. Holding home meds for now #CAD/hypertension/persistent atrial fibrillation- Continue apixaban, aspirin, clopidogrel, furosemide. Currently holding metop and doxazosin as patient with mild hypotension. #Sukhwinder Foote Was hospitalized 05/20-05/26 for pyelo treated with dapto/pime and then Bactrim on d/c Chronic medical conditions: GERD - continue pantoprazole Hyperlipidemia - continue rosuvastatin Agitation - continue quetiapine FEN: DM2 Code status: DNR/DNI DVT ppx: Eliquis PT/OT: Consulted Dispo: med/surg, can return to [facility] as he's at baseline function Total Time Total Time Spent Total Time Spent (In Minutes): See attending attestation Discharge Plan Discharge Items Patient Disposition: Personal Half-Way Reason For Visit: SEPSIS DUE TO CELLULITIS Discharge Diagnosis: Sepsis from scrotal cellulitis Activity: Per Instructions section Non-emergency contact: Primary Care Provider Call non-emergency contact if: your symptoms worsen and your pain is not controlled Follow-up/Referrals: Justo Burgos DO [Primary Care Provider] - Diet: Regular Addtl Attending Provider Instructions: You were admitted to the hospital for scrotal cellulitis. While admitted you were treated with antibiotics. Urology was consulted during your stay. While admitted you were also treated with fluids to correct your volume status. Initially you were on broader antibiotics of IV daptomycin and cefepime. These antibiotics were de-escalated to doxycycline and augmentin and you will require a total 14 day course. Antibiotics were started on 05/30 and thus you are currently on day 614 and will require continued Augmentin and Doxycycline therapy twice daily until 06/12. Also continue nystatin powder on affected region for anti-fungal therapy. Your blood cultures remained negative for 48 hours. These cultures will continue to grow for 5 days and we will reach out if these show any growth. It is important that you complete your course of antibiotics and take them daily til 06/12 which will be your last day of therapy. A discharge summary will be sent to your primary care physician to ensure continuity of care. Please bring this discharge summary with you to your next office appointment so that your provider can review it at that time. Follow-up appointments: Make a follow-up appointment with your PCP within the next week. It is very important that you follow up with them shortly after discharge from the hospital. Medications: Your medication list has been reviewed and reconciled upon discharge to ensure accuracy and continuity of care. An updated list of all your medications is included with your hospital discharge paperwork. Please review this list closely, and make note of any changes. We sent a new medication called Augmentin to your pharmacy. Take Augmentin 875mg one tablet twice daily for the next 8 days. Please take 1 tablet tonight. We sent a new medication called Doxycycline to your pharmacy. Take Doxycycline 100mg one tablet twice daily for the next 8 days. Please take 1 tablet tonight. You may also continue taking your home nystatin powder for antifungal therapy Take all of your medications as instructed; do not skip a dose of your medicines. Make sure all of your doctors know every medicine you are taking (including petu-ktj-ayxnlac medicines, vitamins, and supplements). Call your primary care provider before taking any new medicines (including knja-jdq-ghltcoa medicines, vitamins, and supplements), because some of these may interact with your current medications, or may make your symptoms worse. Tell your primary care provider if you cannot afford your medications. CONTACT YOUR PRIMARY CARE PROVIDER if you experience any of the following: Difficulty following your treatment plan, or difficulty taking medications CALL 911 OR GO TO THE EMERGENCY DEPARTMENT if you experience any of the following: Sudden, severe abdominal pain or nausea/vomiting Severe chest pain, or chest pain that radiates (moves) to your jaw or arm Sudden, severe shortness of breath or difficulty breathing Thank you for allowing us to participate in your care. Pending Studies at Discharge: No Stand-Alone Forms: My Mys[employer], Smoking Cessation Skilled Items Patient informed of condition?: Yes DNR: Yes Discharge Level of Care: Skilled Communicable Disease: No Discharge Prognosis: Stable Lines: None Urinary Catheter: Yes Medications and DC Order Prescriptions: New amoxicillin-pot clavulanate 875-125 mg tablet 1 tab PO BID Qty: 17 0RF Rx Instructions: Please take this medication twice daily for the next 8 days. Please take 1 tablet tonight. doxycycline hyclate 100 mg tablet 100 mg PO BID Qty: 17 0RF Rx Instructions: Please take this medication twice daily for the next 8 days. Please take 1 tablet tonight. Continued quetiapine [Seroquel] 25 mg tablet 25 mg PO QAM aspirin 81 mg Tablet,Delayed Release (Dr/Ec) 81 mg PO QAM rosuvastatin 20 mg Tablet 20 mg PO HS folic acid 1 mg Tablet 1 mg PO BID doxazosin [Cardura] 1 mg Tablet 1 mg PO HS cholecalciferol (vitamin D3) [Vitamin D3] 50 mcg (2,000 unit) Capsule 50 mcg PO QAM pantoprazole 40 mg tablet,delayed release (DR/EC) 40 mg PO QAM melatonin 3 mg Tablet,Disintegrating 3 mg PO HS potassium chloride 10 mEq tablet,ER particles/crystals 10 meq PO TID furosemide [Lasix] 40 mg tablet 20 mg PO HS multivitamin [Daily-Lala] Tablet 1 tab PO QAM clopidogrel 75 mg Tablet 75 mg PO QAM nystatin 100,000 unit/gram Cream 1 applic TOPICAL BID Rx Instructions: apply to scrotal area Jardiance 25 mg Tablet 25 mg PO QAM sulfamethoxazole-trimethoprim [Bactrim DS] 800-160 mg tablet 1 tab PO BID furosemide [Lasix] 40 mg Tablet 40 mg PO QAM sennosides-docusate sodium [Senna with Docusate Sodium] 8.6-50 mg Tablet 1 tab-cap PO DAILY PRN (Reason: Constipation) metoprolol succinate 25 mg Tablet Extended Release 24 Hr 25 mg PO BID 30 Days Qty: 60 0RF Eliquis 5 mg Tablet 5 mg PO BID 30 Days Qty: 60 0RF insulin glargine [Lantus U-100 Insulin] 100 unit/mL Solution 7 unit subcut BID 30 Days Qty: 4.2 0RF Discharge Orders: Discharge Order (Routine); Ordered 06/04/24 Ordered By: Eric Sharif Admission Data Admit Date/Time: 05/30/24 04:53 Attending Provider: Tennille Jama Admit Provider: Jae Palmer Primary Care Provider: uJsto Burgos Other Providers: [facility]; Jae Palmer; Murtaza Carney Other Interventions: Discharge Summary Assessment (RN) Last Done: 06/04/24 11:55 Supervising Physician Co-Signing Physician Notes I personally examined the patient and verified siddiqi points of history and exam, discussed case, and agree with decision making and plan documented by Dr. Sharif. Patient appears comfortable, lungs clear b/l to auscultation, regular rate and rhythm, no acute distress, foote draining clear yellow fluid. Patient advised to continue doxycycline and Augmentin until 06/14/2024 to treat scrotal cellulitis. Continue topical nystatin. Will need continued wound care. Foote to be maintained. Recommend follow-up with PCP within 1 week. Patient transferred back to [facility]. Total attending time 26 minutes. Resident Activity Tracking Resident Involvement: Resident Care Provided Care Provided: [facility] Medicine
== END 2024-06-04 12:08 | disposition home health service (06) | DRG 872 ==
LOC: SUATTDRO → ED 22:28 → 2E 05-30 04:53 → SUATTDRO 05-30 04:53 → 2E 05-30 08:34 → 3N 05-31 23:16

== ENCOUNTER 2024-10-30 15:49 | Inpatient (IN) ==
--- NOTE | 2024-10-30 16:25 | Emergency Department Note ---
Impression & Plan Catheter-associated urinary tract infection, Atrial fibrillation with RVR ED Provider Note NAME: NINO SEAMAN AGE: 73 SEX: M : 1950 ARRIVES VIA: Ambulance INFORMANT: Patient, ED PROVIDER(S): Jose Hood MD CHIEF COMPLAINT: Confusion, leg swelling MEDICAL DECISION MAKING: Patient presents with the above. Limited history given the patient's confusion. IV was established blood cultures obtained empiric cefepime. Patient does have an indwelling Estevez catheter. Chest x-ray and CT head also obtained. Fluids held at this time. The patient is in A-fib but has not been hypotensive. Patient was ordered a dose of IV Lopressor. The patient's blood work showed a white count of 12 with a normal hemoglobin and platelet count kidney function is unremarkable. Urinalysis does show concerns for possible infection with leukocytes whites and bacteria. No epithelial cells. BioFire is negative. Lactate of 2.3. I did speak the on-call hospitalist service and the patient was admitted to the medicine service. Critical Care: I have personally spent 37 minutes of critical care time in direct management of this patient. This includes bedside care, interpretation of diagnostic studies, and testing, discussion with consultants, patient, and family members, and other require inpatient management activities. This 37 minutes is in excess of all separately billable procedures. Discussion w/ other healthcare providers: Dr. Kate and patient medicine service Prior /Outside records reviewed: None Differential diagnosis: Infection, dehydration, metabolic abnormality, hypo/hyperglycemia, electrolyte imbalance, anemia, UTI, pneumonia, thyroid dysfunction among others were considered. Diagnostics, as interpreted by me: ECG: A-fib with RVR, rate 104 normal QRS duration normal axis no ST elevations PVCs noted. Cardiac monitoring: An order was placed for continuous cardiac monitoring. The monitor shows a rate of 102 with irregular irregular rhythm. Patient was placed on pulse oximetry Medical decision rules: None Imaging studies: I informally interpreted the patient's chest x-ray does show concern for pulmonary edema with formal report to follow. HPI: Patient presents from [facility] due to concern for worsening confusion and leg swelling. Limited history but the patient currently denies any significant complaints. He has no head or neck pain. Patient denies any chest pain or shortness of breath. Patient does have an indwelling Estevez catheter. No reported nausea vomiting. No BSG checked prior to arrival no reported falls or trauma by nursing report. Patient reportedly was afebrile. PAST MEDICAL HISTORY: See Below PAST SURGICAL HISTORY: See Below SOCIAL HISTORY: See Below HOME MEDICATIONS: See Below ALLERGIES: See Below VITALS: See Below PHYSICAL EXAMINATION: GENERAL: NAD, non-toxic. Wearing glasses. EYE EXAM: Normal conjunctiva. PERRL, no anisocoria and EOM's grossly intact w/o pain. OROPHARYNX: Moist mucus membranes, grossly normal dentition. NECK: Trachea midline, no stridor. LUNGS: Clear to auscultation. Normal chest wall mechanics. HEART: Irregular irregular and tachycardic, no MRG. ABDOMEN: Abdomen soft, non-tender, no masses, no rebound or guarding. BACK: No CVA TTP. SKIN: No rashes and no bruising. UPPER EXTREMITIES: Upper extremities are grossly normal. LOWER EXTREMITIES: Grossly normal, 3+ lower extremity edema without calf pain or erythema. NEURO EXAM: Awake and alert, follows commands, not oriented to place or time. No obvious facial asymmetry, normal speech, moves all 4 extremities. Past Med/Surg History Problem List (Updated 11/02/24 @ 20:45 by Jose Hood MD) Metabolic encephalopathy Mood disorder MAMI (obstructive sleep apnea) Diabetes mellitus GAGAN (acute kidney injury) Groin rash Osteoarthritis of left hip Atrial fibrillation with RVR (Acute) Sepsis Groin rash Atrial fibrillation with RVR Catheter-associated urinary tract infection (Acute) Sepsis (Acute) Acute UTI (Acute) Chronic indwelling Estevez catheter (Acute) Groin pain (Acute) Cognitive impairment (Acute) Morbid obesity with BMI of 40.0-44.9, adult Self-care deficit Obstructive sleep apnea DVT (deep venous thrombosis) (Acute ~05/20/24) Chronic venous insufficiency (Chronic) Arthritis of left hip CAD (coronary artery disease) Persistent atrial fibrillation Encounter for pre-operative examination Hypertension Diabetes (Chronic) NIDDM DJD of shoulder (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) Medical History History of pyelonephritis (~05/26/24) UTI/pyelonephritis/sepsis/delirium-hospitalized at [facility] 05/20- Carotid artery stenosis < 50% stenosis on 01/2023 carotid doppler On anticoagulant therapy History of cardioversion Cellulitis of groin scrotal cellulitis/SIRS hospitalization at [facility] 05/29- Weakness Acute alteration in mental status L5 vertebral fracture Lymphedema Sacral wound ongoing long term resident lanette gonzalez Indwelling Estevez catheter present Hypotension Chronic venous insufficiency Dementia DVT (deep venous thrombosis) (~05/20/24) Diastolic heart failure CAD (coronary artery disease) s/p BMS to RCA in 1997 IBS (irritable bowel syndrome) Chronic obstructive pulmonary disease group C per [facility] EMR Sleep apnea denies currently using CPAP Osteoarthritis Diabetes mellitus, type 2 Hearing deficit [facility] [place] Hyperlipidemia Atrial fibrillation lost to f/u with [facility] cardiology Pilonidal cyst Depression Obesity Anemia Migraines Myocardial infarction 1997 Chronic GERD controlled, stable per pt Surgical History History of heart artery stent 1997 - [place] - 1 stent placed - hospital in [place], [place] reports had another cath [place] in [place] - no stents/angioplasty History of cataract surgery right and left History of total hip arthroplasty RT History of total shoulder replacement BL History of esophagogastroduodenoscopy (EGD) H/O colonoscopy Hx laparoscopic cholecystectomy Family History Brother Family history of diabetes mellitus X2 Social History Smoking Status: Never smoker Tobacco Type: Cigarettes Second Hand Exposure: No; Do You Dip or Chew Tobacco: No; Hx Alcohol Use: No Hx Substance Use: No Preferred Language: Turkish Communication Ability: Impaired Feeder Catcher Tobacco Required: No Beliefs That Will Affect Care: None Current Living Situation: Personal Care Facility Feels Safe at Home: Declines to Answer Assistive Devices: Walker and Wheelchair Allergies Allergies Allergy/AdvReac Type Severity Reaction Status Date / Time NBA Inhibitors AdvReac Unknown to be Verified 06/12/24 13:22 avoided per [facility] EMR ARB-Angiotensin Receptor AdvReac Unknown to be Verified 06/12/24 12:34 Antagonist avoided per [facility] EMR Home Meds Home Medications Medication Instructions Recorded Confirmed aspirin 81 mg tablet,delayed 81 mg PO QAM 05/18/18 10/30/24 release doxazosin 1 mg tablet (Cardura) 1 mg PO HS 05/18/18 10/30/24 folic acid 1 mg tablet 1 mg PO BID 05/18/18 10/30/24 rosuvastatin 20 mg tablet 20 mg PO HS 05/18/18 10/30/24 cholecalciferol (vitamin D3) 50 50 mcg PO QAM 09/04/19 10/30/24 mcg (2,000 unit) capsule (Vitamin D3) pantoprazole 40 mg tablet,delayed 40 mg PO QAM 02/18/23 10/30/24 release melatonin 3 mg disintegrating 3 mg PO HS 03/26/23 10/30/24 tablet multivitamin (Daily-Lala tablet) 1 tab PO QAM 03/26/23 10/30/24 potassium chloride 10 mEq 10 meq PO TID 03/26/23 10/30/24 tablet,extended release(part/cryst) clopidogrel 75 mg tablet 75 mg PO QAM 10/22/23 10/30/24 nystatin 100,000 unit/gram topical 1 applic topical BID 10/22/23 10/30/24 cream quetiapine 25 mg tablet (Seroquel) 25 mg PO QAM 05/17/24 10/30/24 sennosides 8.6 mg-docusate sodium 1 tab-cap PO DAILY PRN Constipation 05/20/24 10/30/24 50 mg tablet (Senna with Docusate Sodium) empagliflozin 25 mg tablet 25 mg PO QAM 05/30/24 10/30/24 (Jardiance) apixaban 5 mg tablet (Eliquis) 5 mg PO BID 10/18/24 10/30/24 insulin glargine 100 unit/mL (3 7 unit subcut BID 10/18/24 10/30/24 mL) subcutaneous pen (Lantus Solostar U-100 Insulin) metoprolol succinate 25 mg 25 mg PO BID 10/18/24 10/30/24 tablet,extended release 24 hr loperamide 2 mg tablet 2 mg PO Q6H PRN Diarrhea 10/30/24 10/30/24 Results & Data (ED) Vital Signs Vital Signs - 24 hr 10/30/24 15:42 10/30/24 16:06 10/30/24 16:12 Temperature 36.5 C Temperature Source Oral Pulse Rate 112 H 114 H Pulse Rate [Right Finger] 114 H Respiratory Rate 16 16 17 Blood Pressure 102/67 Blood Pressure [Left Arm] 111/64 Blood Pressure Mean 78 Blood Pressure Mean [Left Arm] 79 Pulse Oximetry 97 94 94 Oxygen Delivery Method Room Air Room Air Sepsis Recent Fever Within 48 Hours No Sepsis New/Unexplained Change in Mental Status No Sepsis Action Taken by Nursing No Action Required 10/30/24 16:19 Temperature Temperature Source Pulse Rate 115 H Pulse Rate [Right Finger] Respiratory Rate Blood Pressure Blood Pressure [Left Arm] Blood Pressure Mean Blood Pressure Mean [Left Arm] Pulse Oximetry Oxygen Delivery Method Sepsis Recent Fever Within 48 Hours Sepsis New/Unexplained Change in Mental Status Sepsis Action Taken by Jail Medications Current Medication List: was personally reviewed by me Laboratory Data Attestation: I reviewed the patient's lab results. 11/02/24 06:06 11/02/24 06:06 Lab Results 10/30/24 10/30/24 10/30/24 Range/Units 16:34 16:45 16:48 WBC 12.03 H (4.8-10.8) K/ul RBC 5.06 (4.70-6.10) M/uL Hgb 15.5 (14.0-18.0) g/dl Hct 45.6 (42.0-52.0) % MCV 90.1 (80.0-100.0) fL MCH 30.6 (25.0-34.0) pg MCHC 34.0 (32.0-36.0) g/dL RDW Std Deviation 47.6 H (36.4-46.3) fL RDW Coeff of Carlton 14.4 (11.5-14.5) % Plt Count 265 (130-400) K/uL MPV 9.6 (9.4-12.4) fL Immature Gran % (Auto) 0.6 % Neut % (Auto) 77.2 % Lymph % (Auto) 8.2 % [place] % (Auto) 10.6 % Eos % (Auto) 2.7 % Baso % (Auto) 0.7 % Neut # (Auto) 9.29 H (1.40-6.50) K/uL Lymph # (Auto) 0.99 L (1.20-3.40) K/uL [place] # (Auto) 1.27 H (0.11-0.59) K/uL Eos # (Auto) 0.33 (0.00-0.50) K/uL Baso # (Auto) 0.08 (0.00-0.20) K/uL Immature Gran # (Auto) 0.07 (0.01-0.20) K/uL Sodium 138 (136-145) mmol/L Potassium 3.9 (3.5-5.1) mmol/L Chloride 105 (98-107) mmol/L Carbon Dioxide 26 (21-32) mmol/L Anion Gap 7 (3-11) BUN 13 (6-23) mg/dl Creatinine 0.98 (0.6-1.4) mg/dl Est Cr Clr Drug Dosing 81.5 ml/min eGFR 80.92 BUN/Creatinine Ratio 13.3 (10-20) Glucose 99 (70-99(Fasting)) mg/dl Lactate 2.1 H* (0.4-2.0) mmol/L Calcium 9.2 (8.6-10.3) mg/dl Magnesium 2.2 (1.7-2.4) mg/dl Total Bilirubin 1.0 (0.2-1.0) mg/dl AST 39 (13-39) U/L ALT 27 (7-52) U/L Alkaline Phosphatase 82 (34-104) U/L Total Protein 7.2 (6.0-8.3) gm/dl Albumin 3.8 (3.4-5.0) gm/dl Globulin 3.4 (2.5-4.0) gm/dl Albumin/Globulin Ratio 1.1 (0.9-2) TSH 8.455 H (0.300-4.500) uIu/ml Free T4 1.19 (0.61-1.60) ng/dl Urine Color Yellow Urine Appearance Cloudy A (Clear) Urine pH 5.5 (4.5-7.5) Ur Specific [place] 1.026 (1.000-1.030) Urine Protein Trace H (Negative) Urine Glucose (UA) 3+ H (Negative) Urine Ketones Negative (Negative) Urine Blood 1+ H (Negative) Urine Nitrite Negative (Negative) Urine Bilirubin Negative (Negative) Urine Urobilinogen Positive H (Negative) Ur Leukocyte Esterase 2+ H (Negative) Urine WBC (Auto) >50 H (0-5) /hpf Urine RBC (Auto) 11-20 H (0-2) /hpf U Hyaline Cast (Auto) 11-20 H (0-2) /lpf U Epithel Cells (Auto) 0-2 (0-2) /hpf Urine Bacteria (Auto) 1+ H (None Seen) Urine Comment Adenovirus (PCR) Not Detected (NotDetected) B. pertussis DNA (PCR) Not Detected (NotDetected) B.parapertussis DNA PCR Not Detected (NotDetected) C. pneumoniae DNA (PCR) Not Detected (NotDetected) Coronavirus OC43 (PCR) Not Detected (NotDetected) Coronavirus HKU1 (PCR) Not Detected (NotDetected) Coronavirus 229E (PCR) Not Detected (NotDetected) SARS-CoV-2 (PCR) Not Detected (NotDetected) Coronavirus NL63 (PCR) Not Detected (NotDetected) Human Metapneumovir PCR Not Detected (NotDetected) Influenza Type A (PCR) Not Detected (NotDetected) Influenza Type B (PCR) Not Detected (NotDetected) M. pneumoniae (PCR) Not Detected (NotDetected) Parainfluenza 1 (PCR) Not Detected (NotDetected) Parainfluenza 2 (PCR) Not Detected (NotDetected) Parainfluenza 3 (PCR) Not Detected (NotDetected) Parainfluenza 4 (PCR) Not Detected (NotDetected) RSV (PCR) Not Detected (NotDetected) Entero/Rhino (PCR) Not Detected (NotDetected) 10/30/24 Range/Units 18:41 WBC (4.8-10.8) K/ul RBC (4.70-6.10) M/uL Hgb (14.0-18.0) g/dl Hct (42.0-52.0) % MCV (80.0-100.0) fL MCH (25.0-34.0) pg MCHC (32.0-36.0) g/dL RDW Std Deviation (36.4-46.3) fL RDW Coeff of Carlton (11.5-14.5) % Plt Count (130-400) K/uL MPV (9.4-12.4) fL Immature Gran % (Auto) % Neut % (Auto) % Lymph % (Auto) % [place] % (Auto) % Eos % (Auto) % Baso % (Auto) % Neut # (Auto) (1.40-6.50) K/uL Lymph # (Auto) (1.20-3.40) K/uL [place] # (Auto) (0.11-0.59) K/uL Eos # (Auto) (0.00-0.50) K/uL Baso # (Auto) (0.00-0.20) K/uL Immature Gran # (Auto) (0.01-0.20) K/uL Sodium (136-145) mmol/L Potassium (3.5-5.1) mmol/L Chloride (98-107) mmol/L Carbon Dioxide (21-32) mmol/L Anion Gap (3-11) BUN (6-23) mg/dl Creatinine (0.6-1.4) mg/dl Est Cr Clr Drug Dosing ml/min eGFR BUN/Creatinine Ratio (10-20) Glucose (70-99(Fasting)) mg/dl Lactate 2.3 H* (0.4-2.0) mmol/L Calcium (8.6-10.3) mg/dl Magnesium (1.7-2.4) mg/dl Total Bilirubin (0.2-1.0) mg/dl AST (13-39) U/L ALT (7-52) U/L Alkaline Phosphatase (34-104) U/L Total Protein (6.0-8.3) gm/dl Albumin (3.4-5.0) gm/dl Globulin (2.5-4.0) gm/dl Albumin/Globulin Ratio (0.9-2) TSH (0.300-4.500) uIu/ml Free T4 (0.61-1.60) ng/dl Urine Color Urine Appearance (Clear) Urine pH (4.5-7.5) Ur Specific [place] (1.000-1.030) Urine Protein (Negative) Urine Glucose (UA) (Negative) Urine Ketones (Negative) Urine Blood (Negative) Urine Nitrite (Negative) Urine Bilirubin (Negative) Urine Urobilinogen (Negative) Ur Leukocyte Esterase (Negative) Urine WBC (Auto) (0-5) /hpf Urine RBC (Auto) (0-2) /hpf U Hyaline Cast (Auto) (0-2) /lpf U Epithel Cells (Auto) (0-2) /hpf Urine Bacteria (Auto) (None Seen) Urine Comment Adenovirus (PCR) (NotDetected) B. pertussis DNA (PCR) (NotDetected) B.parapertussis DNA PCR (NotDetected) C. pneumoniae DNA (PCR) (NotDetected) Coronavirus OC43 (PCR) (NotDetected) Coronavirus HKU1 (PCR) (NotDetected) Coronavirus 229E (PCR) (NotDetected) SARS-CoV-2 (PCR) (NotDetected) Coronavirus NL63 (PCR) (NotDetected) Human Metapneumovir PCR (NotDetected) Influenza Type A (PCR) (NotDetected) Influenza Type B (PCR) (NotDetected) M. pneumoniae (PCR) (NotDetected) Parainfluenza 1 (PCR) (NotDetected) Parainfluenza 2 (PCR) (NotDetected) Parainfluenza 3 (PCR) (NotDetected) Parainfluenza 4 (PCR) (NotDetected) RSV (PCR) (NotDetected) Entero/Rhino (PCR) (NotDetected) Administered Medications Acetaminophen (Acetaminophen 325 Mg Tab) 650 mg PO Q4H PRN PRN Reason: Pain or Fever Stop: 11/29/24 20:22 Last Admin: 11/02/24 20:22 Dose: 650 mg Documented By: Admin: 11/02/24 12:30 Dose: 650 mg Documented By: Admin: 11/02/24 08:13 Dose: 650 mg Documented By: Admin: 11/01/24 23:40 Dose: 650 mg Documented By: Admin: 11/01/24 19:27 Dose: 650 mg Documented By: MALLY Apixaban (Apixaban 5 Mg Tablet) 5 mg PO BID STEPHANIE Stop: 11/29/24 20:59 Last Admin: 11/02/24 20:24 Dose: 5 mg Documented By: Admin: 11/02/24 08:14 Dose: 5 mg Documented By: Admin: 11/01/24 19:29 Dose: 5 mg Documented By: Admin: 11/01/24 08:03 Dose: 5 mg Documented By: Admin: 10/31/24 20:26 Dose: 5 mg Documented By: Admin: 10/31/24 08:58 Dose: 5 mg Documented By: Admin: 10/30/24 20:50 Dose: 5 mg Documented By: PAWAN Aspirin (Aspirin 81 Mg Ectab) 81 mg PO [facility] Stop: 11/30/24 08:59 Last Admin: 11/02/24 08:15 Dose: 81 mg Documented By: Admin: 11/01/24 08:03 Dose: 81 mg Documented By: Admin: 10/31/24 08:56 Dose: 81 mg Documented By: PHAN Clopidogrel Bisulfate (Clopidogrel Bisulfate 75 Mg Tab) 75 mg PO [facility] Stop: 11/30/24 08:59 Last Admin: 11/02/24 08:15 Dose: 75 mg Documented By: Admin: 11/01/24 08:02 Dose: 75 mg Documented By: Admin: 10/31/24 08:58 Dose: 75 mg Documented By: PHAN Doxazosin Mesylate (Doxazosin Mesylate 1 Mg Tab) 1 mg PO [facility] Stop: 11/29/24 20:59 Last Admin: 11/02/24 20:24 Dose: 1 mg Documented By: Admin: 11/01/24 19:28 Dose: 1 mg Documented By: Admin: 10/31/24 20:25 Dose: 1 mg Documented By: Admin: 10/30/24 20:49 Dose: 1 mg Documented By: PAWAN Folic Acid (Folic Acid 1 Mg Tab) 1 mg PO BID [facility] Stop: 11/29/24 20:59 Last Admin: 11/02/24 20:24 Dose: 1 mg Documented By: Admin: 11/02/24 09:47 Dose: 1 mg Documented By: Admin: 11/01/24 19:29 Dose: 1 mg Documented By: Admin: 11/01/24 08:02 Dose: 1 mg Documented By: Admin: 10/31/24 20:26 Dose: 1 mg Documented By: Admin: 10/31/24 08:58 Dose: 1 mg Documented By: Admin: 10/30/24 20:49 Dose: 1 mg Documented By: PAWAN Meropenem 500 mg/ Syringe 10 mls @ 2 mls/min IV Q6H [facility]; Protocol Stop: 11/04/24 10:04 Last Admin: 11/02/24 16:36 Dose: 2 mls/min Documented By: Admin: 11/02/24 09:47 Dose: 2 mls/min Documented By: Admin: 11/02/24 05:31 Dose: 2 mls/min Documented By: Admin: 11/01/24 19:39 Dose: 2 mls/min Documented By: Admin: 11/01/24 16:22 Dose: 2 mls/min Documented By: GATO Insulin Aspart (Insulin Aspart Per Unit Charge) 0 units SC ACHS STEPHANIE Stop: 11/29/24 20:59 Last Admin: 11/02/24 16:35 Dose: 2 units Documented By: DAVID Co-signed By: EMMANUELLE Admin: 11/02/24 11:52 Dose: 5 units Documented By: DAVID Co-signed By: BRANDEN Admin: 11/02/24 08:16 Dose: 3 units Documented By: DAVID Co-signed By: VIRGILIO Admin: 11/01/24 19:41 Dose: Not Given Documented By: Admin: 11/01/24 17:35 Dose: 2 units Documented By: GATO Co-signed By: SYEDA Admin: 11/01/24 12:43 Dose: 4 units Documented By: GATO Co-signed By: JANNY Admin: 11/01/24 08:00 Dose: 6 units Documented By: GATO Co-signed By: JANNY Admin: 10/31/24 21:26 Dose: Not Given Documented By: Admin: 10/31/24 17:31 Dose: 5 units Documented By: AM Co-signed By: MP Admin: 10/31/24 12:28 Dose: 5 units Documented By: AM Co-signed By: SYEDA Admin: 10/31/24 08:49 Dose: 4 units Documented By: AM Co-signed By: CESILIA Admin: 10/30/24 20:50 Dose: Not Given Documented By: DM Insulin Glargine (Lantus Per Unit Charge) 7 units SQ BID STEPHANIE Stop: 11/29/24 20:59 Last Admin: 11/02/24 08:17 Dose: 7 units Documented By: DAVID Co-signed By: VIRGILIO Admin: 11/01/24 19:46 Dose: 7 units Documented By: MALLY Co-signed By: TP Admin: 11/01/24 08:00 Dose: 7 units Documented By: GATO Co-signed By: JANNY Admin: 10/31/24 21:27 Dose: 7 units Documented By: JULIAN Co-signed By: GURJIT Admin: 10/31/24 08:49 Dose: 7 units Documented By: AM Co-signed By: CESILIA Admin: 10/30/24 20:53 Dose: 7 units Documented By: PAWAN Co-signed By: LISA Loperamide HCl (Loperamide Hcl 2 Mg Cap) 2 mg PO Q6H PRN PRN Reason: Diarrhea Stop: 11/29/24 20:29 Last Admin: 10/31/24 20:31 Dose: 2 mg Documented By: JULIAN Melatonin (Melatonin 3 Mg Tab) 3 mg PO HS PRN PRN Reason: Insomnia Stop: 11/29/24 20:29 Last Admin: 11/02/24 20:22 Dose: 3 mg Documented By: Admin: 11/01/24 19:28 Dose: 3 mg Documented By: Admin: 10/31/24 20:31 Dose: 3 mg Documented By: Admin: 10/30/24 20:53 Dose: 3 mg Documented By: PAWAN Metoprolol Succinate (Metoprolol Succ 25mg Ext Rel Tab) 25 mg PO BID [facility] Stop: 11/29/24 20:59 Last Admin: 11/02/24 20:28 Dose: Not Given Documented By: Admin: 11/02/24 08:14 Dose: 25 mg Documented By: Admin: 11/01/24 19:30 Dose: 25 mg Documented By: Admin: 11/01/24 08:03 Dose: Not Given Documented By: Admin: 10/31/24 20:26 Dose: 25 mg Documented By: Admin: 10/31/24 08:59 Dose: 25 mg Documented By: Admin: 10/30/24 20:54 Dose: 25 mg Documented By: PAWAN Multivitamins (Multivitamin Tab) 1 tab PO QAM [facility] Stop: 11/30/24 08:59 Last Admin: 11/02/24 08:15 Dose: 1 tab Documented By: Admin: 11/01/24 08:02 Dose: 1 tab Documented By: Admin: 10/31/24 08:57 Dose: 1 tab Documented By: PHAN Nystatin (Nystatin Cr 15 Gm Tube) 1 appln EXT BID STEPHANIE Stop: 11/29/24 20:59 Last Admin: 11/02/24 20:29 Dose: 1 appln Documented By: Admin: 11/02/24 08:17 Dose: 1 appln Documented By: Admin: 11/01/24 19:30 Dose: 1 appln Documented By: Admin: 11/01/24 08:01 Dose: 1 appln Documented By: Admin: 10/31/24 20:27 Dose: 1 appln Documented By: Admin: 10/31/24 08:59 Dose: 1 appln Documented By: Admin: 10/30/24 20:49 Dose: 1 appln Documented By: PAWAN Ondansetron HCl (Ondansetron Inj 2 Mg/Ml 2 Ml Vial) 4 mg IV Q6H PRN PRN Reason: Nausea Stop: 11/29/24 20:22 Last Admin: 11/02/24 08:12 Dose: 4 mg Documented By: DAVID Pantoprazole Sodium (Pantoprazole 40 Mg Tab) 40 mg PO QAM [facility] Stop: 11/30/24 08:59 Last Admin: 11/02/24 08:15 Dose: 40 mg Documented By: Admin: 11/01/24 08:02 Dose: 40 mg Documented By: Admin: 10/31/24 08:57 Dose: 40 mg Documented By: PHAN Potassium Chloride (Potassium Chloride 10 Meq Tabcr) 10 meq PO TID STEPHANIE Stop: 11/29/24 20:59 Last Admin: 11/02/24 20:22 Dose: 10 meq Documented By: Admin: 11/02/24 13:20 Dose: 10 meq Documented By: Admin: 11/02/24 08:13 Dose: 10 meq Documented By: Admin: 11/01/24 19:28 Dose: 10 meq Documented By: Admin: 11/01/24 12:47 Dose: 10 meq Documented By: Admin: 11/01/24 08:01 Dose: 10 meq Documented By: Admin: 10/31/24 20:31 Dose: 10 meq Documented By: Admin: 10/31/24 15:51 Dose: 10 meq Documented By: Admin: 10/31/24 09:01 Dose: 10 meq Documented By: Admin: 10/30/24 20:53 Dose: 10 meq Documented By: PAWAN Rosuvastatin Calcium (Rosuvastatin Calcium 20 Mg Tab) 20 mg PO [facility] Stop: 11/29/24 20:59 Last Admin: 11/02/24 20:29 Dose: 20 mg Documented By: Admin: 11/01/24 19:31 Dose: 20 mg Documented By: Admin: 10/31/24 20:26 Dose: 20 mg Documented By: Admin: 10/30/24 20:48 Dose: 20 mg Documented By: PAWAN Vitamin D (Cholecalciferol 25 Mcg (1000 Units) Tab) 50 [facility] [place]: 11/30/24 08:59 Last Admin: 11/02/24 08:15 Dose: 50 mcg Documented By: Admin: 11/01/24 08:02 Dose: 50 mcg Documented By: Admin: 10/31/24 08:56 Dose: 50 mcg Documented By: PHAN Discontinued Medications Furosemide (Furosemide 40 Mg/4 Ml Vial) 40 mg IV ONE ONE Stop: 10/31/24 07:13 Last Admin: 10/31/24 08:38 Dose: 40 mg Documented By: PHAN Cefepime HCl (Maxipime 2000mg) 2,000 mg in 20 mls @ 5 mls/min IV NOW STA; Protocol Stop: 10/30/24 16:18 Last Admin: 10/30/24 18:04 Dose: 5 mls/min Documented By: ANABELLA Cefepime HCl (Maxipime 2000mg) 2,000 mg in 20 mls @ 5 mls/min IV Q8H [facility]; Protocol Stop: 11/05/24 01:59 Last Admin: 11/01/24 09:13 Dose: 5 mls/min Documented By: Admin: 11/01/24 01:47 Dose: 5 mls/min Documented By: Admin: 10/31/24 17:32 Dose: 5 mls/min Documented By: Admin: 10/31/24 10:55 Dose: 5 mls/min Documented By: Admin: 10/31/24 01:09 Dose: 5 mls/min Documented By: PAWAN Thiamine HCl 500 mg/ Sodium (Chloride) 55 mls @ 210 mls/hr IV NOW STA Stop: 11/01/24 08:09 Last Infusion: 11/01/24 10:06 Dose: Infused Documented By: Admin: 11/01/24 09:13 Dose: 210 mls/hr Documented By: GATO Metoprolol Tartrate (Metoprolol Tartrate 1 Mg/Ml Vial) 5 mg IV NOW STA Stop: 10/30/24 18:10 Last Admin: 10/30/24 18:25 Dose: 5 mg Documented By: ANABELLA Metoprolol Tartrate (Metoprolol Tartrate 25 Mg Tab) 12.5 mg PO ONE ONE Stop: 10/30/24 20:24 Last Admin: 10/30/24 21:22 Dose: Not Given Documented By: PAWAN Imaging Data Radiologist's Impression: Chest X-Ray 10/30/24 16:12 Clinical History: Weakness Technique: A frontal view of the chest was obtained Findings: There are no confluent pulmonary infiltrates. The heart size is within normal limits. No pleural effusion or pneumothorax is seen. There is no definite pulmonary nodule. No fracture is noted. There are bilateral shoulder replacements Impression: No active disease Electronically signed by Seymour Acosta 10-30-2024 5:17 PM Discharge Plan Visit Data Chief Complaint: Edema To Extremity Stated Complaint: SWELLING IN THE LEGS ED Provider: Jose Hood Discharge Problem: Catheter-associated urinary tract infection, Atrial fibrillation with RVR Patient Disposition: Admitted As Inpatient Condition: Good Discharge Instructions Interventions: ED Discharge Assessment Last Done: 10/30/24 19:51 Discharge Problem: Catheter-associated urinary tract infection Qualifiers: Indwelling urinary catheter type: indwelling urethral catheter Encounter type: initial encounter Qualified Code(s): T83.511A - Infection and inflammatory reaction due to indwelling urethral catheter, initial encounter; N39.0 - Urinary tract infection, site not specified
[2024-10-30 16:56] LABS: Hematocrit (blood only) 45.6 % (42.0-52.0); Hemoglobin 15.5 g/dl (14.0-18.0); Immature Granulocytes # (auto) 0.07 K/uL (0.01-0.20); Immature Granulocytes % (auto) 0.6 %; Mean Corpuscular Hemoglobin 30.6 pg (25.0-34.0); Mean Corpuscular Volume 90.1 fL (80.0-100.0); Platelet Count 265 K/uL (130-400); RDW Standard Deviation 47.6 fL (36.4-46.3); Red Blood Count 5.06 M/uL (4.70-6.10); White Blood Count 12.03 K/ul (4.8-10.8)
[2024-10-30 17:11] LABS: Appearance Urine Cloudy (Clear); Bacteria Urine Automated 1+ (None Seen); Epithelial Cell Urine Auto 0-2 /hpf (0-2); Glucose Urine UA 3+ (Negative); WBC Urine Automated >50 /hpf (0-5)
[2024-10-30 17:15] LABS: Alanine Aminotransferase 27.0 U/L (7-52); Albumin Globulin Ratio 1.1 (0.9-2); Alkaline Phosphatase 82.0 U/L (34-104); Anion Gap 7.0 (3-11); Bilirubin,Total 1.0 mg/dl (0.2-1.0); Blood Urea Nitrogen 13.0 mg/dl (6-23); Calcium 9.2 mg/dl (8.6-10.3); Carbon Dioxide 26.0 mmol/L (21-32); Chloride 105.0 mmol/L (98-107); Creatinine Clr Calc Pharmacy 81.5 ml/min; Globulin 3.4 gm/dl (2.5-4.0); Glucose 99.0 mg/dl (70-99(Fasting)); Magnesium 2.2 mg/dl (1.7-2.4); Potassium 3.9 mmol/L (3.5-5.1); Sodium 138.0 mmol/L (136-145); Total Protein 7.2 gm/dl (6.0-8.3)
--- NOTE | 2024-10-30 17:18 | XRay Report ---
Clinical History: Weakness Technique: A frontal view of the chest was obtained Findings: There are no confluent pulmonary infiltrates. The heart size is within normal limits. No pleural effusion or pneumothorax is seen. There is no definite pulmonary nodule. No fracture is noted. There are bilateral shoulder replacements Impression: No active disease Electronically signed by Seymour Acosta 10-30-2024 5:17 PM
[2024-10-30 17:31] LABS: Thyroid Stimulating Hormone 8.455 uIu/ml (0.300-4.500)
[2024-10-30 17:52] LABS: Chlamydia pneumoniae PCR Not Detected (NotDetected); Coronavirus 229E PCR Not Detected (NotDetected); Coronavirus CoV-2 (COVID19)PCR Not Detected (NotDetected); Coronavirus HKU1 PCR Not Detected (NotDetected); Coronavirus NL63 PCR Not Detected (NotDetected); Coronavirus OC43PCR Not Detected (NotDetected); Human Metapneumovirus PCR Not Detected (NotDetected); Parainfluenza Virus 1 PCR Not Detected (NotDetected); Parainfluenza Virus 2 PCR Not Detected (NotDetected); Parainfluenza Virus 3 PCR Not Detected (NotDetected); Parainfluenza Virus 4 PCR Not Detected (NotDetected); Respiratory Syncytial VirusPCR Not Detected (NotDetected); Rhinovirus/Enterovirus PCR Not Detected (NotDetected)
--- NOTE | 2024-10-30 17:55 | CT Scan Report ---
CT head without contrast History: Confusion Comparison: 05/20/2024 Technique: Using multidetector thin collimation helical acquisition technique, axial, coronal and sagittal CT images from the skull base to the vertex were obtained without intravenous contrast. Dose reduction techniques were achieved by using automatic exposure control and/or adjustment of mA and/or kV according to patient size and/or use of iterative reconstruction technique. Findings: No intracranial hemorrhage, mass-effect, or midline shift. The ventricles are proportionate to the cerebral sulci. The guy to white matter differentiation of the cerebral hemispheres is preserved. The basal cisterns are patent. Moderate cerebral atrophy. The visualized paranasal sinuses are clear. Mastoid air cells are clear. Impression: No acute intracranial pathology. Electronically signed by Kristopher Garcia 10-30-2024 5:54 PM
[2024-10-30] MEDS: CEFEPIME 2000MG 2,000 MG/20 ML SYR IV STA (18:04)
[2024-10-30] MEDS: METOPROLOL TARTRATE 1 MG/ML VIAL IV STA (18:25)
--- NOTE | 2024-10-30 19:38 | History & Physical Report ---
Date of Service October 30, 2024 Assessment & Plan (1) Metabolic encephalopathy: (2) Catheter-associated urinary tract infection: (3) Atrial fibrillation with RVR: (4) Diabetes mellitus: Plan 73-year-old male with a history of coronary disease atrial fibrillation on chronic anticoagulation and a chronic Estevez catheter presents with metabolic encephalopathy likely from catheter associate UTI present on admission. Patient has had a fall at home with a injury to his left lower extremity with sloughing of the skin and a large wound. Patient recently was in our hospital discharge went to [facility] was discharged home and then had progressive weakness and falling. Patient is a diabetic typically taking insulin and Jardiance therapy. #Metabolic encephalopathy associate with a Estevez catheter associated urinary tract infection present on admission. Previous history of Klebsiella. Blood and urine cultures were obtained. Patient will be given cefepime therapy Patient was not volume resuscitated for sepsis in the emergency department due to concern for diastolic heart failure and massive lower extremity swelling. #Lower extremity swelling and skin injury from fall. Patient has chronic venous stasis changes and likely this is a large part responsible for swelling rather than an exacerbation of heart failure preserved ejection fraction. This could be slightly exacerbated from his rapid ventricular atrial fibrillation. Subsequently we will not institute diuretic therapy at this time to control his atrial rate evaluating him in the morning to determine whether his blood pressure and renal function would withstand diuretic use. #Atrial fibrillation. Patient continues on Eliquis therapy. He continues on metoprolol therapy this is succinate twice daily will give an additional dose of 12.5 of tartrate this evening with metoprolol backup for rapid heart rate. #Diabetes for control will use basal bolus insulin with sliding scale and A1c will be checked,Given recurrent urinary tract infections Jardiance may not be the best choice for this patient DVT prevention is Eliquis therapy patient is a DNR History of Present Illness Primary Care Provider: parth hill 73-year-old male presents with metabolic encephalopathy likely from urinary source. He is in A-fib RVR with a history of A-fib, heart failure preserved ejection fraction, previous coronary artery disease with stenting in 1997 chronically anticoagulated on Eliquis therapy. Typically sees [facility] cardiology in the past. Discharged from our facility October 20 to [facility] left [facility] on October 26 and returns now with a fall at home. Patient has a chronic indwelling Estevez catheter and previous catheter associated urinary tract infections. He has morbid obesity with a BMI of 38 and with a recent fall at home sustaining a skin tear to his left lower extremity. He has chronic venous stasis changes to bilateral lower extremities and ambulates with challenges typically at [facility] there is last admission he grew Klebsiella he was felt to be septic. Patient is diabetic and has been on Jardiance along with insulin for care In the emergency department he is confused he has massive lower extremity swelling he has mild changes on chest x-ray he is in A-fib with RVR treated with intravenous metoprolol he has mild elevation of his lactic acid. He had cultures obtained was given antibiotics as well as the metoprolol controlling his ventricular rate Allergies Allergy/AdvReac Type Severity Reaction Status Date / Time NBA Inhibitors AdvReac Unknown to be Verified 06/12/24 13:22 avoided per S EMR ARB-Angiotensin Receptor AdvReac Unknown to be Verified 06/12/24 12:34 Antagonist avoided per [facility] EMR Home Medications Medication Instructions Recorded Confirmed Type aspirin 81 mg tablet,delayed 81 mg PO QAM 05/18/18 10/30/24 History release doxazosin 1 mg tablet (Cardura) 1 mg PO HS 05/18/18 10/30/24 History folic acid 1 mg tablet 1 mg PO BID 05/18/18 10/30/24 History rosuvastatin 20 mg tablet 20 mg PO HS 05/18/18 10/30/24 History cholecalciferol (vitamin D3) 50 50 mcg PO QAM 09/04/19 10/30/24 History mcg (2,000 unit) capsule (Vitamin D3) pantoprazole 40 mg tablet,delayed 40 mg PO QAM 02/18/23 10/30/24 History release melatonin 3 mg disintegrating 3 mg PO HS 03/26/23 10/30/24 History tablet multivitamin (Daily-Lala tablet) 1 tab PO QAM 03/26/23 10/30/24 History potassium chloride 10 mEq 10 meq PO TID 03/26/23 10/30/24 History tablet,extended release(part/cryst) clopidogrel 75 mg tablet 75 mg PO QAM 10/22/23 10/30/24 History nystatin 100,000 unit/gram topical 1 applic topical BID 10/22/23 10/30/24 History cream quetiapine 25 mg tablet (Seroquel) 25 mg PO QAM 05/17/24 10/30/24 History sennosides 8.6 mg-docusate sodium 1 tab-cap PO DAILY PRN Constipation 05/20/24 10/30/24 History 50 mg tablet (Senna with Docusate Sodium) empagliflozin 25 mg tablet 25 mg PO QAM 05/30/24 10/30/24 History (Jardiance) apixaban 5 mg tablet (Eliquis) 5 mg PO BID 10/18/24 10/30/24 History insulin glargine 100 unit/mL (3 7 unit subcut BID 10/18/24 10/30/24 History mL) subcutaneous pen (Lantus Solostar U-100 Insulin) metoprolol succinate 25 mg 25 mg PO BID 10/18/24 10/30/24 History tablet,extended release 24 hr loperamide 2 mg tablet 2 mg PO Q6H PRN Diarrhea 10/30/24 10/30/24 History Past Med/Surg History Problem List (Updated 10/30/24 @ 19:45 by Isma Kate MD) Metabolic encephalopathy Mood disorder MAMI (obstructive sleep apnea) Diabetes mellitus GAGAN (acute kidney injury) Groin rash Osteoarthritis of left hip Atrial fibrillation with RVR Sepsis Groin rash Atrial fibrillation with RVR Catheter-associated urinary tract infection Sepsis (Acute) Acute UTI (Acute) Chronic indwelling Estevez catheter (Acute) Groin pain (Acute) Cognitive impairment (Acute) Morbid obesity with BMI of 40.0-44.9, adult Self-care deficit Obstructive sleep apnea DVT (deep venous thrombosis) (Acute ~05/20/24) Chronic venous insufficiency (Chronic) Arthritis of left hip CAD (coronary artery disease) Persistent atrial fibrillation Encounter for pre-operative examination Hypertension Diabetes (Chronic) NIDDM DJD of shoulder (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) Medical History History of pyelonephritis (~05/26/24) UTI/pyelonephritis/sepsis/delirium-hospitalized at [facility] 05/20- Carotid artery stenosis < 50% stenosis on 01/2023 carotid doppler On anticoagulant therapy History of cardioversion Cellulitis of groin scrotal cellulitis/SIRS hospitalization at [facility] 05/29- Weakness Acute alteration in mental status L5 vertebral fracture Lymphedema Sacral wound ongoing 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 lanette gonzalez Indwelling Estevez catheter present Hypotension Chronic venous insufficiency Dementia DVT (deep venous thrombosis) (~05/20/24) Diastolic heart failure CAD (coronary artery disease) s/p BMS to RCA in 1997 IBS (irritable bowel syndrome) Chronic obstructive pulmonary disease group C per S EMR Sleep apnea denies currently using CPAP Osteoarthritis Diabetes mellitus, type 2 Hearing deficit [place] Hyperlipidemia Atrial fibrillation lost to f/u with [facility] cardiology Pilonidal cyst Depression Obesity Anemia Migraines Myocardial infarction 1997 Chronic GERD controlled, stable per pt Surgical History History of heart artery stent 1997 - [place] - 1 stent placed - hospital in [place], [place] reports had another cath early in [facility] - no stents/angioplasty History of cataract surgery right and left History of total hip arthroplasty RT History of total shoulder replacement BL History of esophagogastroduodenoscopy (EGD) H/O colonoscopy Hx laparoscopic cholecystectomy Family History Brother Family history of diabetes mellitus X2 Social History Smoking Status: Former smoker Tobacco Type: Cigarettes Second Hand Exposure: No; Do You Dip or Chew Tobacco: No; Hx Alcohol Use: No Hx Substance Use: No Preferred Language: [place] Communication Ability: Effective Photographer News Required: No Beliefs That Will Affect Care: Cultural Current Living Situation: Custodial Feels Safe at Home: Yes Assistive Devices: Walker and Wheelchair Review of Systems Review of Systems: Unable to obtain review of systems due to mental status changes Physical Exam Physical Exam: The patient appeared in moderate distress mild tachypnea massive lower extremity swelling Vital signs as documented. Head exam is normocephalic atraumatic Neck is with JVD, thyromegaly, or carotid bruits. Lungs are diminished at the bases no rales Cardiac exam, irregular but rate controlled no murmurs Abdominal exam reveals normal bowel sounds, soft non tender, no masses Extremities are 2+ edema bilaterally chronic venous stasis changes and large slough there is skin of his left lower extremity Neurologic exam is alert and oriented x 1, no focal loss of strength or sensation Skin is with bruises some intertrigo also Psychologically is without concerns for anxiety or depression.. Results & Data Results & Data Vital Signs (Past 12 Hours) Vital Signs Temp Pulse Pulse Resp BP BP Pulse Ox 10/30/24 19:00 105 H 12 104/63 98 10/30/24 18:45 104 H 104/77 10/30/24 18:25 116 H 97/76 L 10/30/24 18:24 112 H 22 98 10/30/24 18:21 97/76 L 10/30/24 18:21 97/76 L 10/30/24 18:20 117 H 97/76 L 10/30/24 18:19 112 H 15 92/62 L 98 10/30/24 18:18 92/62 L 10/30/24 18:18 114 H 23 97 10/30/24 18:15 112 H 18 98 10/30/24 18:12 115 H 16 100 10/30/24 18:06 117 H 16 104/69 97 10/30/24 18:05 104/69 10/30/24 18:05 104/69 10/30/24 18:05 104/69 10/30/24 18:05 104/69 10/30/24 18:03 112 H 19 98 10/30/24 18:01 96/64 L 10/30/24 18:00 106 H 18 94 10/30/24 17:54 110 H 13 98 10/30/24 17:48 111 H 21 10/30/24 17:09 108 H 18 97 10/30/24 17:00 95/70 L 10/30/24 17:00 95/70 L 10/30/24 16:57 108 H 15 98 10/30/24 16:42 113 H 24 99 10/30/24 16:31 102/66 10/30/24 16:19 115 H 10/30/24 16:16 111/64 10/30/24 16:12 115 H 20 97 10/30/24 16:12 114 H 17 94 10/30/24 16:06 114 H 16 111/64 94 10/30/24 16:03 120 H 16 96 10/30/24 16:00 102/67 10/30/24 16:00 102/67 10/30/24 16:00 102/67 10/30/24 15:42 97.7 F 112 H 16 102/67 97 O2 Del Method 10/30/24 19:00 Room Air 10/30/24 18:45 10/30/24 18:25 10/30/24 18:24 10/30/24 18:21 10/30/24 18:21 10/30/24 18:20 10/30/24 18:19 Room Air 10/30/24 18:18 10/30/24 18:18 10/30/24 18:15 10/30/24 18:12 10/30/24 18:06 Room Air 10/30/24 18:05 10/30/24 18:05 10/30/24 18:05 10/30/24 18:05 10/30/24 18:03 10/30/24 18:01 10/30/24 18:00 10/30/24 17:54 10/30/24 17:48 10/30/24 17:09 10/30/24 17:00 10/30/24 17:00 10/30/24 16:57 10/30/24 16:42 10/30/24 16:31 10/30/24 16:19 10/30/24 16:16 10/30/24 16:12 10/30/24 16:12 Room Air 10/30/24 16:06 10/30/24 16:03 10/30/24 16:00 10/30/24 16:00 10/30/24 16:00 10/30/24 15:42 Room Air Laboratory Results Reviewed CBC reviewed chemistry Code Status & VTE Plan VTE Prophylaxis Plan VTE Prophylaxis will be ordered: Yes PG Care Time/CCT Total # of Minutes Spent Total Time Spent with Patient: Total time spent is greater than 50% in coordination of care (as documented) at patient's floor/unit and/or counseling patient: Coding Level of Care Code 06766 INT INP/OBS CARE 3/75MIN Diagnoses Metabolic encephalopathy G93.41 Catheter-associated urinary tract infection T83.511A; N39.0 Atrial fibrillation with RVR I48.91 Diabetes mellitus E11.9
[2024-10-30] MEDS ORDERED: DEXTROSE 50% 50 ML SYRINGE IV PRN (20:23)
[2024-10-30] MEDS ORDERED: METOPROLOL TARTRATE 1 MG/ML VIAL IV PRN (20:23)
[2024-10-30] MEDS ORDERED: GLUCOSE 10 TAB/TUBE PO PRN (20:23)
[2024-10-30] MEDS ORDERED: CARBOHYDRATES FOR HYPOGLYCEMIA PO PRN (20:23)
[2024-10-30] MEDS ORDERED: GLUCAGON FOR INJ 1 MG VIAL SQ PRN (20:23)
[2024-10-30] MEDS ORDERED: GLUCOSE 40% GEL 15 GM TUBE PO PRN (20:23)
[2024-10-30] MEDS: ROSUVASTATIN CALCIUM 20 MG TAB PO SCH (20:48)
[2024-10-30] MEDS: NYSTATIN CR 15 GM TUBE EXT SCH (20:49)
[2024-10-30] MEDS: DOXAZOSIN MESYLATE 1 MG TAB PO SCH (20:49)
[2024-10-30] MEDS: FOLIC ACID 1 MG TAB PO SCH (20:49)
[2024-10-30] MEDS: APIXABAN 5 MG TABLET PO SCH (20:50)
[2024-10-30] MEDS: INSULIN ASPART PER UNIT CHARGE SC SCH (20:50)
[2024-10-30] MEDS: MELATONIN 3 MG TAB PO PRN (20:53)
[2024-10-30] MEDS: POTASSIUM CHLORIDE 10 MEQ TABCR PO SCH (20:53)
[2024-10-30] MEDS: LANTUS PER UNIT CHARGE SQ SCH (20:53)
[2024-10-30] MEDS: METOPROLOL SUCC 25MG EXT REL TAB PO SCH (20:54)
[2024-10-30] MEDS: METOPROLOL TARTRATE 25 MG TAB PO ONE (21:22)
[2024-10-31] MEDS: CEFEPIME 2000MG 2,000 MG/20 ML SYR IV SCH (01:09)
[2024-10-31 06:10] LABS: Hematocrit (blood only) 41.5 % (42.0-52.0); Hemoglobin 14.2 g/dl (14.0-18.0); Mean Corpuscular Hemoglobin 30.5 pg (25.0-34.0); Mean Corpuscular Volume 89.2 fL (80.0-100.0); Platelet Count 227 K/uL (130-400); RDW Standard Deviation 46.2 fL (36.4-46.3); Red Blood Count 4.65 M/uL (4.70-6.10); White Blood Count 8.95 K/ul (4.8-10.8)
[2024-10-31 06:28] LABS: Anion Gap 6.0 (3-11); Blood Urea Nitrogen 11.0 mg/dl (6-23); Calcium 8.6 mg/dl (8.6-10.3); Carbon Dioxide 22.0 mmol/L (21-32); Chloride 111.0 mmol/L (98-107); Creatinine Clr Calc Pharmacy 102.0 ml/min; Glucose 94.0 mg/dl (70-99(Fasting)); Magnesium 2.1 mg/dl (1.7-2.4); Potassium 4.0 mmol/L (3.5-5.1); Sodium 139.0 mmol/L (136-145)
--- NOTE | 2024-10-31 07:11 | Hospitalist Progress Note ---
Date of Service October 31, 2024 Assessment & Plan (1) Metabolic encephalopathy: (2) Catheter-associated urinary tract infection: (3) Atrial fibrillation with RVR: (4) Diabetes mellitus: Plan 73-year-old male with a history of coronary disease atrial fibrillation on chronic anticoagulation and a chronic Estevez catheter presents with metabolic encephalopathy likely from catheter associate UTI present on admission. Patient recently was in our hospital discharge typically living in a h, and then had progressive weakness and falling. Patient is a diabetic typically taking insulin and Jardiance therapy. #Metabolic encephalopathy associate with a Estevez catheter associated urinary tract infection present on admission. Previous history of Klebsiella. Blood and urine cultures show 50,000 colonies E. coli blood cultures negative to date patient will be given cefepime therapy complete 3-day Patient was not volume resuscitated for sepsis in the emergency department due to concern for diastolic heart failure and massive lower extremity swelling. #Lower extremity chronic venous stasis changes and likely this is a large part responsible for swelling rather than an exacerbation of heart failure preserved ejection fraction. This could be slightly exacerbated from his rapid ventricular atrial fibrillation. dose of lasix on 10/31 due to leg swelling and ambulation difficulties #Atrial fibrillation. Patient continues on Eliquis therapy. He continues on metoprolol therapy this is succinate twice daily will give an additional dose of 12.5 of tartrate this evening with metoprolol backup for rapid heart rate. 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 Patient had no recurrence of atrial fibrillation lower extremity swelling is fairly significant dose of Lasix will be tried on 11/01/2024. Urine only showing 50,000 colonies of E. coli blood cultures are negative to date Physical Exam Physical Exam: The patient appeared in moderate distress mild tachypnea massive lower extremity swelling Vital signs as documented. Head exam is normocephalic atraumatic Neck is with JVD, thyromegaly, or carotid bruits. Lungs are diminished at the bases no rales Cardiac exam, irregular but rate controlled no murmurs Abdominal exam reveals normal bowel sounds, soft non tender, no masses Extremities are 2+ edema bilaterally chronic venous stasis changes and large slough there is skin of his left lower extremity Neurologic exam is alert and oriented x 1, no focal loss of strength or sensation Skin is with bruises some intertrigo also Psychologically is without concerns for anxiety or depression.. Results & Data Results & Data Vital Signs (Past 12 Hours) Vital Signs Temp Pulse Pulse Resp BP Pulse Ox O2 Del Method 10/31/24 07:08 97.9 F 97 H 18 104/64 95 Room Air 10/31/24 02:55 97.9 F 102 H 20 102/66 95 Room Air 10/30/24 23:30 99 H 10/30/24 22:53 Room Air 10/30/24 22:36 97.9 F 119 H 20 106/65 95 Room Air 10/30/24 22:02 110 H 10/30/24 21:22 98/68 L 10/30/24 20:30 105 H 10/30/24 20:15 97.9 F 113 H 18 113/75 96 Room Air 10/30/24 19:51 Room Air Laboratory Results Reviewed cultures subclinical urine culture Reviewed CBC reviewed chemistry PG Care Time/CCT Total # of Minutes Spent Total Time Spent with Patient: Total time spent is greater than 50% in coordination of care (as documented) at patient's floor/unit and/or counseling patient: Coding Level of Care Code 95188 SUB INP/OBS CARE 3/50MIN Diagnoses Metabolic encephalopathy G93.41 Catheter-associated urinary tract infection T83.511A; N39.0 Atrial fibrillation with RVR I48.91 Diabetes mellitus E11.9
[2024-10-31 07:42] LABS: Hemoglobin A1C 6.8 % (4.5-5.6)
[2024-10-31] MEDS: FUROSEMIDE 40 MG/4 ML VIAL IV ONE (08:38)
[2024-10-31] MEDS: CHOLECALCIFEROL 25 MCG (1000 UNITS) TAB PO SCH (08:56)
[2024-10-31] MEDS: ASPIRIN 81 MG ECTAB PO SCH (08:56)
[2024-10-31] MEDS: MULTIVITAMIN TAB PO SCH (08:57)
[2024-10-31] MEDS: CLOPIDOGREL BISULFATE 75 MG TAB PO SCH (08:58)
[2024-10-31] MEDS: LOPERAMIDE HCL 2 MG CAP PO PRN (20:31)
[2024-11-01 06:22] LABS: Hematocrit (blood only) 43.3 % (42.0-52.0); Hemoglobin 14.7 g/dl (14.0-18.0); Mean Corpuscular Hemoglobin 30.5 pg (25.0-34.0); Mean Corpuscular Volume 89.8 fL (80.0-100.0); Platelet Count 225 K/uL (130-400); RDW Standard Deviation 47.6 fL (36.4-46.3); Red Blood Count 4.82 M/uL (4.70-6.10); White Blood Count 9.69 K/ul (4.8-10.8)
[2024-11-01 07:14] LABS: Anion Gap 7.0 (3-11); Calcium 8.6 mg/dl (8.6-10.3); Carbon Dioxide 22.0 mmol/L (21-32); Chloride 109.0 mmol/L (98-107); Magnesium 2.1 mg/dl (1.7-2.4); Potassium 4.0 mmol/L (3.5-5.1); Sodium 138.0 mmol/L (136-145)
[2024-11-01 07:20] LABS: Blood Urea Nitrogen 14.0 mg/dl (6-23); Creatinine Clr Calc Pharmacy 87.3 ml/min; Glucose 104.0 mg/dl (70-99(Fasting))
--- NOTE | 2024-11-01 07:57 | Hospitalist Progress Note ---
Date of Service November 01, 2024 Assessment & Plan (1) Metabolic encephalopathy: (2) Catheter-associated urinary tract infection: (3) Atrial fibrillation with RVR: (4) Diabetes mellitus: Plan 73-year-old male with a history of coronary disease atrial fibrillation on chronic anticoagulation and a chronic Estevez catheter presents with metabolic encephalopathy likely from catheter associate UTI present on admission. Patient recently was in our hospital discharge typically living in a h, and then had progressive weakness and falling. Patient is a diabetic typically taking insulin and Jardiance therapy. # sepsis poa from urinary source #Metabolic encephalopathy associate with a Estevez catheter associated urinary tract infection present on admission. Previous history of Klebsiella. Blood and urine cultures show 50,000 colonies E. coli and pseudomonas, blood cultures negative to date patient will be given cefepime therapy complete 3-day, no other cause of encephalopathy, will give one dose of thiamine and see if improves Patient was not volume resuscitated for sepsis in the emergency department due to concern for diastolic heart failure and massive lower extremity swelling. #Lower extremity chronic venous stasis changes and likely this is a large part responsible for swelling heart failure preserved ejection fraction not in exacerbation. dose of lasix on 10/31 due to leg swelling and ambulation difficulties #Atrial fibrillation. Patient continues on Eliquis therapy. He continues on metoprolol therapy this is succinate twice daily will give an additional dose of 12.5 of tartrate this evening with metoprolol backup for rapid heart rate. 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 Patient had no recurrence of atrial fibrillation lower extremity swelling is fairly significant dose of Lasix will be tried on 11/01/2024. Urine only showing 50,000 colonies of E. coli blood cultures are negative to date Physical Exam Physical Exam: The patient appeared in moderate distress mild tachypnea massive lower extremity swelling Vital signs as documented. Head exam is normocephalic atraumatic Neck is with JVD, thyromegaly, or carotid bruits. Lungs are diminished at the bases no rales Cardiac exam, irregular but rate controlled no murmurs Abdominal exam reveals normal bowel sounds, soft non tender, no masses Extremities are 2+ edema bilaterally chronic venous stasis changes and large slough there is skin of his left lower extremity Neurologic exam is alert and oriented x 1, no focal loss of strength or sensation Skin is with bruises some intertrigo also Psychologically is without concerns for anxiety or depression.. Results & Data Results & Data Vital Signs (Past 12 Hours) Vital Signs Temp Pulse Resp BP Pulse Ox O2 Del Method 11/01/24 03:00 98.4 F 94 H 16 96/72 L 93 Room Air 10/31/24 23:00 97.9 F 117 H 16 90/62 L 96 Room Air Laboratory Results review cbc review chemistry PG Care Time/CCT Total # of Minutes Spent Total Time Spent with Patient: Total time spent is greater than 50% in coordination of care (as documented) at patient's floor/unit and/or counseling patient: Coding Level of Care Code 44954 SUB INP/OBS CARE 3/50MIN Diagnoses Metabolic encephalopathy G93.41 Catheter-associated urinary tract infection T83.511A; N39.0 Atrial fibrillation with RVR I48.91 Diabetes mellitus E11.9
[2024-11-01] MEDS: THIAMINE HCL 500 MG in SODIUM CHLORIDE 0.9% 50 ML IV STA (09:13)
[2024-11-01] MEDS: MEROPENEM 500 MG in SYRINGE 0 ML IV SCH (16:22)
[2024-11-01] MEDS: ACETAMINOPHEN 325 MG TAB PO PRN (19:27)
--- NOTE | 2024-11-01 21:19 | Electrocardiogram Report ---
Test Reason : Blood Pressure : */* mmHG Vent. Rate : 104 BPM Atrial Rate : * BPM P-R Int : * ms QRS Dur : 86 ms QT Int : 364 ms P-R-T Axes : * 77 -11 degrees QTcB Int : 478 ms Atrial fibrillation with rapid ventricular response with premature ventricular or aberrantly conducte d complexes Low voltage QRS Cannot rule out Inferior infarct , age undetermined Cannot rule out Anterior infarct , age undetermined Abnormal ECG When compared with ECG of 18-Oct-2024 00:40, Nonspecific T wave abnormality no longer evident in Anterolateral leads Confirmed by Jimmy Lanier ([id number]) on 11/01/2024 9:19:24 PM Referred By: Confirmed By: Jimmy Lanier
[2024-11-02 07:02] LABS: Hematocrit (blood only) 41.4 % (42.0-52.0); Hemoglobin 14.3 g/dl (14.0-18.0); Mean Corpuscular Hemoglobin 30.6 pg (25.0-34.0); Mean Corpuscular Volume 88.5 fL (80.0-100.0); Platelet Count 245 K/uL (130-400); RDW Standard Deviation 47.0 fL (36.4-46.3); Red Blood Count 4.68 M/uL (4.70-6.10); White Blood Count 8.60 K/ul (4.8-10.8)
[2024-11-02 07:24] LABS: Anion Gap 7.0 (3-11); Blood Urea Nitrogen 13.0 mg/dl (6-23); Calcium 8.6 mg/dl (8.6-10.3); Carbon Dioxide 23.0 mmol/L (21-32); Chloride 109.0 mmol/L (98-107); Creatinine Clr Calc Pharmacy 101.5 ml/min; Glucose 83.0 mg/dl (70-99(Fasting)); Magnesium 2.1 mg/dl (1.7-2.4); Potassium 4.0 mmol/L (3.5-5.1); Sodium 139.0 mmol/L (136-145)
[2024-11-02] MEDS: ONDANSETRON INJ 2 MG/ML 2 ML VIAL IV PRN (08:12)
--- NOTE | 2024-11-02 12:38 | Hospitalist Progress Note ---
Date of Service November 02, 2024 Assessment & Plan (1) Metabolic encephalopathy: (2) Catheter-associated urinary tract infection: (3) Atrial fibrillation with RVR: (4) Diabetes mellitus: Plan 73-year-old male with a history of coronary disease atrial fibrillation on chronic anticoagulation and a chronic Estevez catheter presents with metabolic encephalopathy likely from catheter associate UTI present on admission. Patient recently was in our hospital discharge typically living in a h, and then had progressive weakness and falling. Patient is a diabetic typically taking insulin and Jardiance therapy. # sepsis poa from urinary source #Metabolic encephalopathy associate with a Estevez catheter associated urinary tract infection present on admission. ESBL and Pseudomonason meropenem, will require at least 7 days of treatment for complicated UTI. Change Estevez. #Lower extremity chronic venous stasis changes and likely this is a large part responsible for swelling heart failure preserved ejection fraction not in exacerbation. dose of lasix on 10/31 due to leg swelling and ambulation difficulties #Atrial fibrillation. Patient continues on Eliquis therapy. He continues on metoprolol therapy this is succinate twice daily will give an additional dose of 12.5 of tartrate this evening with metoprolol backup for rapid heart rate. #Diabetes for control will use basal bolus insulin with sliding scale and A1c will be checked,Given recurrent urinary tract infections Jardiance may not be the best choice for this patient. Will discontinue. His A1c is 6.8, so stopping a low-dose of Jardiance will not likely get him out of goal range given his age and comorbidities. DVT prevention is Eliquis therapy patient is a DNR Admission and Anticipated Discharge Date Admission Date: October 30, 2024 Subjective No meaningful HPI or review of systems. Physical Exam Physical Exam: Awake alert pleasant disoriented no distress. HEENT normocephalic atraumatic mucous membranes moist. Breathing unlabored no accessory muscle use good effort. Skin without rashes, pallor, icterus. Neuro without focal deficits. Estevez draining clear yellow urine. Results & Data Results & Data Vital Signs (Past 12 Hours) Vital Signs Temp Pulse Pulse BP Pulse Ox O2 Del Method 11/02/24 11:00 98.1 F 97 H 102/63 98 Room Air 11/02/24 08:10 Room Air 11/02/24 08:00 111/65 11/02/24 07:59 98.2 F 108 H 99 Room Air 11/02/24 07:00 105 H 11/02/24 07:00 99/69 L 11/02/24 01:55 98.2 F 111 H 94/77 L 96 Room Air PG Care Time/CCT Total # of Minutes Spent Total Time Spent with Patient: Total time spent is greater than 50% in coordination of care (as documented) at patient's floor/unit and/or counseling patient: Coding Level of Care Code 61260 SUB INP/OBS CARE 3/50MIN Diagnoses Metabolic encephalopathy G93.41 Catheter-associated urinary tract infection T83.511A; N39.0 Atrial fibrillation with RVR I48.91 Diabetes mellitus E11.9
[2024-11-03 07:09] LABS: Hematocrit (blood only) 42.5 % (42.0-52.0); Hemoglobin 14.7 g/dl (14.0-18.0); Mean Corpuscular Hemoglobin 31.1 pg (25.0-34.0); Mean Corpuscular Volume 90.0 fL (80.0-100.0); Platelet Count 237 K/uL (130-400); RDW Standard Deviation 47.2 fL (36.4-46.3); Red Blood Count 4.72 M/uL (4.70-6.10); White Blood Count 8.27 K/ul (4.8-10.8)
[2024-11-03 07:37] LABS: Anion Gap 5.0 (3-11); Blood Urea Nitrogen 13.0 mg/dl (6-23); Calcium 8.7 mg/dl (8.6-10.3); Carbon Dioxide 25.0 mmol/L (21-32); Chloride 108.0 mmol/L (98-107); Creatinine Clr Calc Pharmacy 99.3 ml/min; Glucose 93.0 mg/dl (70-99(Fasting)); Potassium 4.4 mmol/L (3.5-5.1); Sodium 138.0 mmol/L (136-145)
--- NOTE | 2024-11-03 17:25 | Hospitalist Progress Note ---
Date of Service November 03, 2024 Assessment & Plan (1) Metabolic encephalopathy: (2) Catheter-associated urinary tract infection: (3) Atrial fibrillation with RVR: (4) Diabetes mellitus: Plan 73-year-old male with a history of coronary disease atrial fibrillation on chronic anticoagulation and a chronic Estevez catheter presents with metabolic encephalopathy likely from catheter associate UTI present on admission. Patient recently was in our hospital discharge typically living in a h, and then had progressive weakness and falling. Patient is a diabetic typically taking insulin and Jardiance therapy. # sepsis poa from urinary source #Metabolic encephalopathy associate with a Estevez catheter associated urinary tract infection present on admission. ESBL and Pseudomonason meropenem, will require at least 7 days of treatment for complicated UTI. (today is day 3 of 7) Changed Estevez. #Lower extremity chronic venous stasis changes and likely this is a large part responsible for swelling heart failure preserved ejection fraction not in exacerbation. dose of lasix on 10/31 due to leg swelling and ambulation difficulties #Atrial fibrillation. Patient continues on Eliquis therapy. He continues on metoprolol therapy this is succinate twice daily will give an additional dose of 12.5 of tartrate this evening with metoprolol backup for rapid heart rate. #Diabetes for control will use basal bolus insulin with sliding scale and A1c will be checked,Given recurrent urinary tract infections Jardiance may not be the best choice for this patient. Will discontinue. His A1c is 6.8, so stopping a low-dose of Jardiance will not likely get him out of goal range given his age and comorbidities. sugars have been acceptable #Mild overnight hypotensionseems to more or less be his baseline and he is asymptomatic. At the same time, given that he has a Estevez and his blood pressures run low I am not sure the doxazosin is benefiting him muchwill hold and follow. DVT prevention is Eliquis therapy patient is a DNR Admission and Anticipated Discharge Date Admission Date: October 30, 2024 Subjective No new complaints. HPI quite limited. He is pleasant. Review of Systems Review of Systems: All systems reviewed & are unremarkable except as noted in HPI & below Physical Exam Physical Exam: General he is awake alert pleasant disoriented no distress. HEENT norm ocephalic atraumatic mucous membranes moist. Breathing unlabored no accessory muscle use good effort. Skin without rashes pallor or icterus. Neuro without focal deficits. Results & Data Results & Data Vital Signs (Past 12 Hours) Vital Signs Temp Pulse Pulse Resp BP BP Pulse Ox 11/03/24 15:00 98.1 F 102 H 18 90/54 L 94 11/03/24 10:59 98.1 F 102 H 18 100/68 98 11/03/24 08:00 11/03/24 07:54 113 H 88/60 L 11/03/24 07:00 98.1 F 110 H 18 78/63 L 81/61 L 91 O2 Del Method 11/03/24 15:00 Room Air 11/03/24 10:59 Room Air 11/03/24 08:00 Room Air 11/03/24 07:54 11/03/24 07:00 Room Air PG Care Time/CCT Total # of Minutes Spent Total Time Spent with Patient: Total time spent is greater than 50% in coordination of care (as documented) at patient's floor/unit and/or counseling patient: Coding Level of Care Code 84089 SUB INP/OBS CARE 3/50MIN Diagnoses Metabolic encephalopathy G93.41 Catheter-associated urinary tract infection T83.511A; N39.0 Encounter type: initial encounter Indwelling urinary catheter type: indwelling urethral catheter Atrial fibrillation with RVR I48.91 Diabetes mellitus E11.9 (2) Catheter-associated urinary tract infection Encounter type: initial encounter Indwelling urinary catheter type: indwelling urethral catheter Qualified Code(s): T83.511A - Infection and inflammatory reaction due to indwelling urethral catheter, initial encounter; N39.0 - Urinary tract infection, site not specified
--- NOTE | 2024-11-04 12:08 | Hospitalist Progress Note ---
Date of Service November 04, 2024 Assessment & Plan (1) Acute UTI: (2) Metabolic encephalopathy: (3) Diabetes mellitus: (4) Hypertension: Plan 73-year-old male with a history of coronary disease atrial fibrillation on chronic anticoagulation and a chronic Estevez catheter presents with metabolic encephalopathy likely from catheter associate UTI present on admission. Patient recently was in our hospital discharge [facility], and then had progressive weakness and falling. Patient is a diabetic typically taking insulin and Jardiance therapy. # sepsis poa from urinary sourceImproving #Metabolic encephalopathy associate with a Estevez catheter associated urinary tract infection present on admission. ESBL and Pseudomonason meropenem, will require at least 7 days of treatment for complicated UTI. (today is day 4 of 7) Changed Estevez. #Lower extremity chronic venous stasis changes and likely this is a large part responsible for swelling heart failure preserved ejection fraction not in exacerbation. dose of lasix on 10/31 due to leg swelling and ambulation difficulties #Atrial fibrillation. Patient continues on Eliquis therapy. He continues on metoprolol therapy this is succinate twice daily #Diabetes sugars reasonable. His A1c is 6.8, so stopping a low-dose of Jardiance will not likely get him out of goal range given his age and comorbidities and may reduce his frequency of urinary tract infections. sugars have been acceptable #Mild overnight hypotensionseems to more or less be his baseline and he is asymptomatic. At the same time, given that he has a Estevez and his blood pressures run low I am not sure the doxazosin is benefiting him much holding, following, numbers have been reasonableif this trend continues would probably discontinue doxazosin as well. DVT prevention is Eliquis therapy patient is a DNR Comes from personal care, would not be able to finish antibiotics at personal- care, given that placement would probably take longer than completing 3 more days of meropenem, plan is to have him in the hospital until meropenem complete, and then back to his personal care. Admission and Anticipated Discharge Date Admission Date: October 30, 2024 Subjective Sleeping today. Never really able to give much HPI. Allowed patient to rest. No new problems identified by nursing. Physical Exam Physical Exam: General resting comfortably appears to be in no distress. HEENT normocephalic atraumatic mucous membranes moist. Breathing unlabored no accessory muscle use good effort. Skin without rashes pallor or icterus. Neuro without focal deficits. Results & Data Results & Data Vital Signs (Past 12 Hours) Vital Signs Temp Pulse Resp BP Pulse Ox O2 Del Method 11/04/24 11:00 98.1 F 104 H 19 102/66 97 Room Air 11/04/24 08:00 Room Air 11/04/24 07:00 98.1 F 85 18 104/69 97 Room Air PG Care Time/CCT Total # of Minutes Spent Total Time Spent with Patient: Total time spent is greater than 50% in coordination of care (as documented) at patient's floor/unit and/or counseling patient: Coding Level of Care Code 83943 SUB INP/OBS CARE 2/35MIN Diagnoses Acute UTI N39.0 Metabolic encephalopathy G93.41 Diabetes mellitus E11.9 Hypertension I10
[2024-11-04] MEDS: DOCUSATE SODIUM/SENNA 50/8.6MG TAB PO PRN (20:38)
--- NOTE | 2024-11-05 07:37 | Hospitalist Progress Note ---
Date of Service November 05, 2024 Assessment & Plan (1) Acute UTI: (2) Metabolic encephalopathy: (3) Diabetes mellitus: (4) Hypertension: Plan 73-year-old male with a history of coronary disease atrial fibrillation on chronic anticoagulation and a chronic Foote catheter presents with metabolic encephalopathy likely from catheter associate UTI present on admission. Patient recently was in our hospital discharge typically living in a h, and then had progressive weakness and falling. Patient is a diabetic typically taking insulin and Jardiance therapy. # sepsis poa from urinary sourceImproving #Metabolic encephalopathy associate with a Foote catheter associated urinary tract infection present on admission. ESBL and Pseudomonason meropenem, will require at least 7 days of treatment for complicated UTI. (LD 11/06) Changed Foote. #Lower extremity chronic venous stasis changes and likely this is a large part responsible for swelling heart failure preserved ejection fraction not in exacerbation. dose of lasix on 10/31 due to leg swelling and ambulation diff iculties #Atrial fibrillation. Patient continues on Eliquis therapy. He continues on metoprolol therapy this is succinate twice daily #Diabetes sugars reasonable. His A1c is 6.8, so stopping a low-dose of Jardiance will not likely get him out of goal range given his age and comorbidities and may reduce his frequency of urinary tract infections. sugars have been acceptable #Mild overnight hypotensionstopped doxazosin as does have foote and no complaint of bladder spasms DVT prevention is Eliquis therapy patient is a DNR Comes from personal care, would not be able to finish antibiotics at personal- care, given that placement would probably take longer than completing 3 more days of meropenem, plan is to have him in the hospital until meropenem complete, and then back to his personal care. Admission and Anticipated Discharge Date Admission Date: October 30, 2024 Subjective pleasantly confused still oriented to person only besides that is agreeable to [facility] Physical Exam Physical Exam: The patient appeared no distress at this time Vital signs as documented. Lungs are diminished at the bases no rales Cardiac exam, irregular but rate controlled no murmurs Extremities are 2+ edema bilaterally chronic venous stasis changes Neurologic exam is alert and oriented x 1, no focal loss of strength or sens ation Psychologically is without concerns for anxiety or depression.. Results & Data Results & Data Vital Signs (Past 12 Hours) Vital Signs O2 Del Method 11/04/24 20:00 Room Air PG Care Time/CCT Total # of Minutes Spent Total Time Spent with Patient: Total time spent is greater than 50% in coordination of care (as documented) at patient's floor/unit and/or counseling patient: Coding Level of Care Code 43453 SUB INP/OBS CARE 2/35MIN Diagnoses Acute UTI N39.0 Metabolic encephalopathy G93.41 Diabetes mellitus E11.9 Hypertension I10
[2024-11-06 06:15] LABS: Hematocrit (blood only) 44.4 % (42.0-52.0); Hemoglobin 15.9 g/dl (14.0-18.0); Mean Corpuscular Hemoglobin 31.5 pg (25.0-34.0); Mean Corpuscular Volume 87.9 fL (80.0-100.0); Platelet Count 292 K/uL (130-400); RDW Standard Deviation 45.6 fL (36.4-46.3); Red Blood Count 5.05 M/uL (4.70-6.10); White Blood Count 9.14 K/ul (4.8-10.8)
[2024-11-06 06:33] LABS: Anion Gap 6.0 (3-11); Blood Urea Nitrogen 10.0 mg/dl (6-23); Calcium 8.8 mg/dl (8.6-10.3); Carbon Dioxide 22.0 mmol/L (21-32); Chloride 108.0 mmol/L (98-107); Creatinine Clr Calc Pharmacy 113.6 ml/min; Glucose 95.0 mg/dl (70-99(Fasting)); Potassium 3.9 mmol/L (3.5-5.1); Sodium 136.0 mmol/L (136-145)
--- NOTE | 2024-11-06 17:39 | Hospitalist Progress Note ---
Date of Service November 06, 2024 Assessment & Plan (1) Acute UTI: (2) Metabolic encephalopathy: (3) Diabetes mellitus: (4) Hypertension: Plan 73-year-old male with a history of coronary disease atrial fibrillation on chronic anticoagulation and a chronic Foote catheter presents with metabolic encephalopathy likely from catheter associate UTI present on admission. Patient recently was in our hospital discharge typically living in a [facility], and then had progressive weakness and falling. Patient is a diabetic typically taking insulin and Jardiance therapy. # sepsis poa from urinary sourceImproving completed 7-day course of meropenem #Metabolic encephalopathy associate with a Foote catheter associated urinary tract infection present on admission. ESBL and Pseudomonason meropenem, Changed Foote. #Lower extremity chronic venous stasis changes and likely this is a large part responsible for swelling heart failure preserved ejection fraction not in exacerbation. dose of lasix on 10/31 due to leg swelling and ambulation difficulties. For salt restricted diet #Atrial fibrillation. Patient continues on Eliquis therapy. He continues on metoprolol therapy this is succinate twice daily #Diabetes sugars reasonable. His A1c is 6.8, so stopping a low-dose of Jardiance will not likely get him out of goal range given his age and comorbidities and may reduce his frequency of urinary tract infections. sugars have been acceptable #Mild overnight hypotensionstopped doxazosin as does have foote and no complaint of bladder spasms DVT prevention is Eliquis therapy patient is a DNR Comes from personal care, would not be able to finish antibiotics at personal- care, given that placement would probably take longer than completing 3 more days of meropenem, plan is to have him in the hospital until meropenem complete, and then back to his personal care. Admission and Anticipated Discharge Date Admission Date: October 30, 2024 Subjective pleasantly confused still oriented to person only besides that is agreeable to subacute rehab and [facility] [place] [facility] Physical Exam Physical Exam: The patient appeared no distress at this time Vital signs as documented. Lungs are clear Cardiac exam, irregular but rate controlled no murmurs Extremities are 2+ edema bilaterally chronic venous stasis changes Neurologic exam is alert and oriented x 1, no focal loss of strength or sensation Psychologically is without concerns for anxiety or depression.. Results & Data Results & Data Vital Signs (Past 12 Hours) Vital Signs Temp Pulse Resp BP BP Pulse Ox O2 Del Method 09/02/25 14:50 97.3 F L 110 H 18 110/70 95 Room Air 11/06/24 07:15 97.7 F 108 H 18 104/66 94 Room Air Laboratory Results Reviewed CBC reviewed chemistry PG Care Time/CCT Total # of Minutes Spent Total Time Spent with Patient: Total time spent is greater than 50% in coordination of care (as documented) at patient's floor/unit and/or counseling patient: Coding Level of Care Code 32547 SUB INP/OBS CARE 2/35MIN Diagnoses Acute UTI N39.0 Metabolic encephalopathy G93.41 Diabetes mellitus E11.9 Hypertension I10
--- NOTE | 2024-11-07 09:57 | Hospitalist Progress Note ---
Date of Service November 07, 2024 Assessment & Plan (1) Acute UTI: (2) Metabolic encephalopathy: (3) Diabetes mellitus: (4) Hypertension: Plan 73-year-old male with a history of coronary disease atrial fibrillation on chronic anticoagulation and a chronic Estevez catheter presents with metabolic encephalopathy likely from catheter associate UTI present on admission. Patient recently was in our hospital discharge typically living in a h, and then had progressive weakness and falling. Patient is a diabetic typically taking insulin and Jardiance therapy. #UTI/Sepsis POA/Metabolic Encephalopathy UC + for E Coli ESBL + Pseudomonas. CBC/BMP stable. BC negative IV Meropenem through 11/07/2024. Estevez exchanged #LE chronic venous stasis HF w/ preserved EF, no exacerbation. dose of Lasix 10/31 to help w/ swelling & ambulation difficulties. Low sodium diet. #Atrial fibrillation. - Continue Eliquis + Metoprolol #Diabetes On Jardiance outpatient. - hold while inpatient. SSI - adjust as necessary #Hypotension Lower BP readings - 94/64 on 11/07 Doxazosin held Continue hold parameters on Metoprolol DVT prophylaxis: Eliquis Code: DNR/DNI Hopeful discharge to [facility] 11/08 vs 11/09. Admission and Anticipated Discharge Date Admission Date: October 30, 2024 Supervising Physician Co-Signing Physician Notes The patient was not seen by me. The chart was reviewed. Case discussed with ANTELMO Smith. Agree with assessment and plan Subjective Isma seen and examined this morning. He does report some b/l lower leg pain but denies any additional complaints. Physical Exam Constitutional: WD/WN, vitals as above Eyes: PERRL, conjunctivae normal, anicteric sclerae Respiratory: normal respiratory effort Musculoskeletal: no tenderness to b/l LE. able to move extremities. Neurologic: PERRL, EOMI, accommodation nl, no face palsy, no dysarthria Psychiatric: A+Ox3, euthymic affect Results & Data Results & Data Vital Signs (Past 12 Hours) Vital Signs Temp Pulse Pulse Resp BP BP Pulse Ox 11/07/24 07:35 11/07/24 07:22 36.4 C L 89 17 102/66 95 11/06/24 23:14 36.3 C L 89 20 93/60 L 96 11/06/24 22:14 94/59 L 11/06/24 22:12 36.6 C 11/06/24 22:11 97 H 93/57 L O2 Del Method 11/07/24 07:35 Room Air 11/07/24 07:22 Room Air 11/06/24 23:14 Room Air 11/06/24 22:14 11/06/24 22:12 11/06/24 22:11 PG Care Time/CCT Total # of Minutes Spent Total Time Spent with Patient: Total time spent is greater than 50% in coordination of care (as documented) at patient's floor/unit and/or counseling patient: Coding Level of Care Code 63813 SUB INP/OBS CARE 2/35MIN Diagnoses Acute UTI N39.0 Metabolic encephalopathy G93.41 Diabetes mellitus E11.9 Hypertension I10
[2024-11-07] MEDS: NYSTATIN POWDER 15GM BTL EXT SCH (12:44)
[2024-11-08] MEDS ORDERED: ONDANSETRON 4 MG OD TAB PO PRN (04:54)
--- NOTE | 2024-11-08 09:30 | XRay Report ---
XR hips [place] 1v w pelvis CLINICAL HISTORY: left leg pain COMPARISON: None FINDINGS: There are postsurgical changes of a total right hip arthroplasty. There are advanced arthr itic changes present within the left hip with marked joint space narrowing. There is a mild acetabula r protrusio deformity. No acute fractures or dislocations are visualized. IMPRESSION: 1. Postsurgical changes of a total right hip arthroplasty 2. 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 No acute fractures ACT 112: Negative or not required by law. Electronically signed by: Lele Webb M.D. 11/08/2024 9:29 AM
--- NOTE | 2024-11-08 10:35 | Hospitalist Progress Note ---
Date of Service November 08, 2024 Assessment & Plan (1) Acute UTI: (2) Metabolic encephalopathy: (3) Diabetes mellitus: (4) Hypertension: Plan 73-year-old male with a history of coronary disease atrial fibrillation on chronic anticoagulation and a chronic Estevez catheter presents with metabolic encephalopathy likely from catheter associate UTI present on admission. Patient recently was in our hospital discharge typically living in a h, and then had progressive weakness and falling. Patient is a diabetic typically taking insulin and Jardiance therapy. #UTI/Sepsis POA/Metabolic Encephalopathy UC + for E Coli ESBL + Pseudomonas. CBC/BMP stable. BC negative s/p IV Meropenem course, finished on 11/07. Estevez exchanged #LE chronic venous stasis HF w/ preserved EF, no exacerbation. dose of Lasix 10/31 to help w/ swelling & ambulation difficulties. Low sodium diet. #Atrial fibrillation. - Continue Eliquis + Metoprolol #Diabetes On Jardiance outpatient. - hold while inpatient. SSI - adjust as necessary #Hypotension Lower BP readings - 94/64 on 11/07 Doxazosin held --> can likely dc on discharge. Continue hold parameters on Metoprolol DVT prophylaxis: Eliquis Code: DNR/DNI Hopeful discharge to [facility] 11/09. Unable to go on 11/08 secondary to no isolation beds available. Admission and Anticipated Discharge Date Admission Date: October 30, 2024 Supervising Physician Co-Signing Physician Notes The patient was not seen by me. The chart was reviewed. Case discussed with ANTELMO Fuller. Agree with assessment and plan Subjective Isma seen and examined this morning. He reports his leg pain has improved overnight. He denies any complaints today. Physical Exam Constitutional: WD/WN, vitals as above Eyes: PERRL, conjunctivae normal, anicteric sclerae Respiratory: normal respiratory effort Neurologic: PERRL, EOMI, accommodation nl, no face palsy, no dysarthria Psychiatric: A+Ox3, euthymic affect Results & Data Results & Data Vital Signs (Past 12 Hours) Vital Signs Temp Pulse Pulse Resp BP Pulse Ox O2 Del Method 11/08/24 07:34 36.4 C L 75 16 118/73 93 Room Air 11/07/24 23:04 36.5 C 96 H 121/77 96 Room Air PG Care Time/CCT Total # of Minutes Spent Total Time Spent with Patient: Total time spent is greater than 50% in coordination of care (as documented) at patient's floor/unit and/or counseling patient: Coding Level of Care Code 70627 SUB INP/OBS CARE 235MIN Diagnoses Acute UTI N39.0 Metabolic encephalopathy G93.41 Diabetes mellitus E11.9 Hypertension I10
[2024-11-09 07:17] VITALS: BP 107/71; PULSE 103; RESP 16; TEMP 97.3; O2SAT 94
--- NOTE | 2024-11-09 08:50 | Discharge Summary ---
Discharge Summary Date of Service November 09, 2024 Principal Dx & Hospital Course #1 = Principal Diagnosis (1) Acute UTI: (2) Metabolic encephalopathy: (3) Diabetes mellitus: (4) Hypertension: Plan 73-year-old male with a history of coronary disease atrial fibrillation on chronic anticoagulation and a chronic Estevez catheter presents with metabolic encephalopathy likely from catheter associate UTI present on admission. Anabel nix recently was in our hospital discharge typically living in a h, and then had progressive weakness and falling. #UTI/Sepsis POA/Metabolic Encephalopathy UC + for E Coli ESBL + Pseudomonas. CBC/BMP stable; BC negative s/p IV Meropenem course, finished on 11/07. Estevez exchanged #LE chronic venous stasis HF w/ preserved EF, no exacerbation. dose of Lasix 10/31 to help w/ swelling & ambulation difficulties. Low sodium diet. #Atrial fibrillation. - Continue Eliquis + Metoprolol #Diabetes On Jardiance outpatient. - discuss w/ PCP whether to continue or not on outpatient basis. #Hypotension Lower BP readings Doxazosin discontinued on discharge. Continue hold parameters on Metoprolol Discharged to rehab on 11/09. Admission HPI Per Admitting Provider 73-year-old male presents with metabolic encephalopathy likely from urinary source. He is in A-fib RVR with a history of A-fib, heart failure preserved ejection fraction, previous coronary artery disease with stenting in 1997 chronically anticoagulated on Eliquis therapy. Typically sees [facility] cardiology in the past. Discharged from [facility] facility October [facility] to [facility] and returns now with a fall at home. Patient has a chronic indwelling Estevez catheter and previous catheter associated urinary tract infections. He has morbid obesity with a BMI of 38 and with a rec ent fall at home sustaining a skin tear to his left lower extremity. He has chronic venous stasis changes to bilateral lower extremities and ambulates with challenges typically at [facility] there is last admission he grew Klebsiella he was felt to be septic. Patient is diabetic and has been on Jardiance along with insulin for care In the emergency department he is confused he has massive lower extremity swelling he has mild changes on chest x-ray he is in A-fib with RVR treated with intravenous metoprolol he has mild elevation of his lactic acid. He had cultures obtained was given antibiotics as well as the metoprolol controlling his ventricular rate Discharge Exam Constitutional WD/WN, vitals as above Eyes PERRL, conjunctivae normal, anicteric sclerae Respiratory normal respiratory effort Skin no rashes, warm and dry Neurologic PERRL, EOMI, accommodation nl, no face palsy, no dysarthria Psychiatric A+Ox3, euthymic affect Discharge Plan Discharge Items Patient Disposition: Transfer Snf Fac Reason For Visit: ENCEPHALPAHTY, AIB RVR Discharge Diagnosis: UTI, metabolic encephalopathy Condition on Discharge: Good Activity: Resume your previous activity Non-emergency contact: Primary Care Provider Call non-emergency contact if: you have any medication questions, your symptoms worsen and you have a fever Follow-up/Referrals: [facility] [Other] Diet: Carb Consistent or DM2 Addtl Attending Provider Instructions: Mr. Salcedo, Nestor were recently hospitalized for confusion. You were found to have a UTI and were treated with IV antibiotics in the hospital. Upon discharge: Medications that have been discontinued include Jardiance and Doxazosin. Seroquel has been held throughout your hospital stay. You have been doing well without this medication. Please continue to hold it until seen by your PCP for further recommendations. You are going to rehab to get stronger prior to returning to your personal nursing home. Please follow up with your PCP within 1-2 weeks of discharge. Best of luck! Ashlee Espana PA-C Pending Studies at Discharge: No Stand-Alone Forms: My [facility] Skilled Items Patient informed of condition?: Yes DNR: Yes Discharge Level of Care: Acute rehab Communicable Disease: No Discharge Prognosis: Stable Lines: None Urinary Catheter: Yes Medications and DC Order Prescriptions: Continued aspirin 81 mg Tablet,Delayed Release (Dr/Ec) 81 mg PO QAM rosuvastatin 20 mg Tablet 20 mg PO HS folic acid 1 mg Tablet 1 mg PO BID cholecalciferol (vitamin D3) [Vitamin D3] 50 mcg (2,000 unit) Capsule 50 mcg PO QAM pantoprazole 40 mg tablet,delayed release (DR/EC) 40 mg PO QAM melatonin 3 mg Tablet,Disintegrating 3 mg PO HS potassium chloride 10 mEq tablet,ER particles/crystals 10 meq PO TID multivitamin [Daily-Lala] Tablet 1 tab PO QAM clopidogrel 75 mg Tablet 75 mg PO QAM nystatin 100,000 unit/gram Cream 1 applic TOPICAL BID Rx Instructions: apply to scrotal area metoprolol succinate 25 mg Tablet Extended Release 24 Hr 25 mg PO BID Eliquis 5 mg Tablet 5 mg PO BID insulin glargine [Lantus Solostar U-100 Insulin] 100 unit/mL (3 mL) Insulin Pen 7 unit SUBCUT BID sennosides-docusate sodium [Senna with Docusate Sodium] 8.6-50 mg Tablet 1 tab-cap PO DAILY PRN (Reason: Constipation) loperamide 2 mg Tablet 2 mg PO Q6H PRN (Reason: Diarrhea) Held quetiapine [Seroquel] 25 mg tablet 25 mg PO QAM Hold Instructions: Resume on 11/23/24. until seen by PCP - has not had while inpatient Discontinued doxazosin [Cardura] 1 mg Tablet 1 mg PO HS Jardiance 25 mg Tablet 25 mg PO QAM Discharge Orders: Discharge Order (Routine); Ordered 11/09/24 Ordered By: Ashlee Rg/Other Patient Handouts: Managing Type 2 Diabetes Admission Data Admit Date/Time: 10/30/24 19:23 Attending Provider: Bulmaro Estrada Admit Provider: Isma Kate Primary Care Provider: Justo Burgos [facility] [employer]; [facility] Other Interventions: Discharge Summary Assessment (RN) Last Done: 11/09/24 13:24 Hospital Stay Data Diagnostic Imagining Performed 10/30/24 16:12 CT head/brain wo con Stat Pending Results Patient Have Any Pending Studies at Discharge: No Discharge Instructions Given to Patient (Per Discharging Provider) Nestor Fry were recently hospitalized for confusion. You were found to have a UTI and were treated with IV antibiotics in the hospital. Upon discharge: Medications that have been discontinued include Jardiance and Doxazosin. Seroquel has been held throughout your hospital stay. You have been doing well without this medication. Please continue to hold it until seen by your PCP for further recommendations. You are going to rehab to get stronger prior to returning to your personal nursing home. Please follow up with your PCP within 1-2 weeks of discharge. Best of luck! Ashlee Espana PA-C Supervising Physician Co-Signing Physician Notes The patient was not seen by me. The chart was reviewed. Case discussed with ANTELMO Fuller. Agree with assessment and plan Total Time Total Time Spent Total Time Spent (In Minutes): 35 Total Time Includes: Examination of the Patient, Discharge Planning, Medication Reconciliation and Other Coding Level of Care Code 96514 INP/OBS DISCH >30 MIN Diagnoses Acute UTI N39.0 Metabolic encephalopathy G93.41 Diabetes mellitus E11.9 Hypertension I10
== END 2024-11-09 14:58 | DRG 698 ==
LOC: ED 15:49 → 2E 19:23 → SUATTDRO 19:23 → 2E 19:51 → 3E 11-05 15:07

== ENCOUNTER 2024-12-08 07:33 | Inpatient (IN) ==
--- NOTE | 2024-12-08 07:47 | Emergency Department Note ---
Impression & Plan Catheter-associated urinary tract infection, Sepsis, Acute metabolic encephalopathy, Fall, Contusion of knee, left ED Provider Note Name: NINO SEAMAN Age: 74 Sex: Male Arrives Via: Ambulance Informant: Patient (poor historian), EMS ED Provider: Murtaza Carroll MD Chief Complaint: Fall Impression: As per impressions above Medical Decision Makin-year-old gentleman with worsening encephalopathy and falling at nursing facility. Arrives for evaluation of left knee pain and confusion. On arrival patient's vital signs with mild tachycardia and hypotension. Given his known congestive failure he was given 500 L IV fluids for concern of early sepsis management. Thank you did not make this fortunately resulted in improvement in his blood pressure and thus further IV fluids held given. This examination he does a permanent aspiration of the left thigh. X-rays of the femur with no along with pelvis reveal no evidence of fracture. He has no large hematoma appreciated on examination. Laboratory workup remarkable for within normal range lactate. White blood cell count is mildly elevated from baseline. Blood cultures were sent. Urinalysis at the clinic concerning for infectious etiology. My suspicion is he has a metabolic encephalopathy secondary to UTI. His previous urinalysis is quite consistent and after discussing with pharmacy plan to treat meropenem. Hospitalist consulted for further management While there was report of a fall with left leg pain the patient does have some hip tenderness palpation. X-rays are unremarkable. There is no other evidence of need for imaging beyond the CT head and cervical spine that was obtained given his Eliquis use but there is no evidence of head trauma. Sepsis resuscitation: Patient was given 500 mL NS bolus IV fluids for resuscitation rather than 30 mL/kg as high concern for fluid overload, plus the patient's improvement in all first bolus. Sepsis Reevaluation: Patient was reevaluated by me at 10:15 AM following fluid recess and management. His blood pressures improved he is breathing comfortably and he has good cap refill. This was considered one of his sepsis examination reevaluations. At this time further fluids will be deferred to hospitalist service that he does not require this at this time Triage/Nursing Notes reviewed by Me External Chart Review by me: A discharge summary from 11/09/2024 was reviewed to get patient's past medical history and recent hospitalization stay information. Differential: Vital Signs: reviewed and remarkable for hypotension Interventions: nss bolus iv, meropenum Labs:ED labs Reviewed by me and remarkable for ua concerning for uti. mild wbc elevation Imaging:X ray results are stated below per my interpretation: Chest: 1 view: No infiltrate, no effusion, normal cardiac border. Left femur 3 view x-ray moderate osteoarthritis of the left however no fracture or dislocation appreciated per my interpretation. 1 view pelvis x-ray as per my interpretation no fracture or dislocation there is a right hip was replaced noted. Per my interpretation. EKG:As per my interpretation. Confusion. Atrial fibrillation with rapid ventricular response with a heart rate of 128 and a QTc of 499. There is no bleeding appreciated. Compared to EKG of October 30, 2024 there is no significant change. Cardiac/Tele Monitoring: Cardiac Monitoring: An Order was placed for continuous cardiac monitoring. The monitor shows a rate of 120 with a afib rvr rhythm. Consults:Discussed with Dr. Cruz with the hospitalist service will further evaluate the patient. Plan: Disposition:Hospitalization. Condition: Fair History of Present Illness: 74-year-old gentleman arrives via EMS for evaluation of fall. Patient is on Eliquis, aspirin and Plavix along with multiple other medications with a history of A-fib RVR with those. Patient was found laying on the ground yesterday after a fall. Was helped up and doing better. This morning when checked on his nursing facility he was noted to be laying in the bathroom. He usually uses a wheelchair so they are not sure how he got from the bed to the bathroom. Patient is complaining of left thigh pain in particular. He notes other areas that hurt as well but these are nonspecific and seem to change based on the discussion. Is unclear whether he hit his head. Patient denies any complaints at 1 moment states many of the things had another. No medications prior to arrival. Past Medical History:See Below Home Medications:See Below Allergies: NBA inhibitors, ARB Vitals:Blood Pressure: 94/56, Pulse 121, RR 16, T 36.4C, O2 98% on RA Physical Exam: Primary and secondary survey completed by me at bedside on patient's arrival. GENERAL: Patient is chronically unwell appearing and in mild distress. HEAD: AT/NC NECK: No midline tenderness palpation. No pain with range of motion. Cervical collar not indicated at this time. RESPIRATORY: No dyspnea crackles at bilateral bases otherwise quite clear CARDIOVASCULAR: Cardiac in a regular.No murmur appreciated. GASTROINTESTINAL: Abdomen soft, non-tender, no peritonitis. EXTREMITIES: Significant edema bilateral lower legs. He has moderate tenderness nation of the medial anterior/lateral left thigh. Some mild tenderness over the left lateral greater trochanter. Severe pain with any attempted movement of the left leg. Right hip nontender and otherwise extremities essentially unremarkable. NEUROLOGIC: Patient is alert and somewhat oriented though sometimes not sensible response. No focal neurologic deficits appreciated SKIN: No rash, no jaundice, no diaphoresis. GCS: 15 ED Course: Times/Reassessments: Patient blood pressure improved with initial bolus of fluid and he is maintaining oxygenation and mental status. Murtaza Carroll MD Past Med/Surg History Problem List (Updated 12/08/24 @ 14:44 by Murtaza Carroll MD) Contusion of knee, left (Acute) Fall (Acute) Acute metabolic encephalopathy (Acute) Sepsis (Acute) Left leg cellulitis Metabolic encephalopathy Mood disorder MAMI (obstructive sleep apnea) Diabetes mellitus GAGAN (acute kidney injury) Groin rash Osteoarthritis of left hip Atrial fibrillation with RVR (Acute) Sepsis Groin rash Atrial fibrillation with RVR Catheter-associated urinary tract infection (Acute) Sepsis (Acute) Chronic indwelling Estevez catheter (Acute) Groin pain (Acute) Cognitive impairment (Acute) Morbid obesity with BMI of 40.0-44.9, adult Self-care deficit Obstructive sleep apnea DVT (deep venous thrombosis) (Acute ~05/20/24) Chronic venous insufficiency (Chronic) Arthritis of left hip CAD (coronary artery disease) Persistent atrial fibrillation Encounter for pre-operative examination Hypertension Diabetes (Chronic) NIDDM DJD of shoulder (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) Medical History History of pyelonephritis (~05/26/24) UTI/pyelonephritis/sepsis/delirium-hospitalized at [facility] 05/20- Carotid artery stenosis < 50% stenosis on 01/2023 carotid doppler On anticoagulant therapy History of cardioversion Cellulitis of groin scrotal cellulitis/SIRS hospitalization at [facility] 05/29- Weakness Acute alteration in mental status L5 vertebral fracture Lymphedema Sacral wound ongoing residential resident lanette elmore Indwelling Estevez catheter present Hypotension Chronic venous insufficiency Dementia DVT (deep venous thrombosis) (~05/20/24) Diastolic heart failure CAD (coronary artery disease) s/p BMS to RCA in 1997 IBS (irritable bowel syndrome) Chronic obstructive pulmonary disease group C per [facility] EMR Sleep apnea denies currently using CPAP Osteoarthritis Diabetes mellitus, type 2 Hearing deficit [facility] Hyperlipidemia Atrial fibrillation lost to f/u with [facility] cardiology Pilonidal cyst Depression Obesity Anemia Migraines Myocardial infarction 1997 Chronic GERD controlled, stable per pt Surgical History History of heart artery stent 1997 - [place] - 1 stent placed - hospital in [place], [place] reports had another cath early in [facility] - no stents/angioplasty History of cataract surgery right and left History of total hip arthroplasty RT History of total shoulder replacement BL History of esophagogastroduodenoscopy (EGD) H/O colonoscopy Hx laparoscopic cholecystectomy Family History Brother Family history of diabetes mellitus X2 Social History Smoking Status: Never smoker Tobacco Type: Cigarettes Second Hand Exposure: No; Do You Dip or Chew Tobacco: No; Hx Alcohol Use: No Hx Substance Use: No Preferred Language: Luxembourgish Communication Ability: Impaired Pellet Post Inspector Required: No Beliefs That Will Affect Care: None Current Living Situation: Personal Care Facility Feels Safe at Home: Yes Assistive Devices: Walker and Wheelchair Allergies Allergies Allergy/AdvReac Type Severity Reaction Status Date / Time NBA Inhibitors AdvReac Unknown to be Verified 06/12/24 13:22 avoided per [facility] EMR ARB-Angiotensin Receptor AdvReac Unknown to be Verified 06/12/24 12:34 Antagonist avoided per [facility] EMR Home Meds Home Medications Medication Instructions Recorded Confirmed aspirin 81 mg tablet,delayed 81 mg PO QAM 05/18/18 12/08/24 release folic acid 1 mg tablet 1 mg PO BID 05/18/18 12/08/24 rosuvastatin 20 mg tablet 20 mg PO HS 05/18/18 12/08/24 cholecalciferol (vitamin D3) 50 50 mcg PO QAM 09/04/19 12/08/24 mcg (2,000 unit) capsule (Vitamin D3) pantoprazole 40 mg tablet,delayed 40 mg PO QAM 12/15/23 10/04/25 release melatonin 3 mg disintegrating 3 mg PO HS 03/26/23 12/08/24 tablet multivitamin (Daily-Lala tablet) 1 tab PO QAM 03/26/23 12/08/24 potassium chloride 10 mEq 10 meq PO TID 03/26/23 12/08/24 tablet,extended release(part/cryst) clopidogrel 75 mg tablet 75 mg PO QAM 10/22/23 12/08/24 nystatin 100,000 unit/gram topical 1 applic topical BID 10/22/23 12/08/24 cream quetiapine 25 mg tablet (Seroquel) 25 mg PO QAM 05/17/24 12/08/24 sennosides 8.6 mg-docusate sodium 1 tab-cap PO DAILY PRN Constipation 05/20/24 12/08/24 50 mg tablet (Senna with Docusate Sodium) apixaban 5 mg tablet (Eliquis) 5 mg PO BID 10/18/24 12/08/24 insulin glargine 100 unit/mL (3 7 unit subcut HS 10/18/24 12/08/24 mL) subcutaneous pen (Lantus Solostar U-100 Insulin) metoprolol succinate 25 mg 25 mg PO BID 10/18/24 12/08/24 tablet,extended release 24 hr loperamide 2 mg tablet 2 mg PO Q6H PRN Diarrhea 10/30/24 12/08/24 acetaminophen 325 mg tablet 650 mg PO TID PRN Pain 12/08/24 12/08/24 doxazosin 1 mg tablet 1 mg PO HS 12/08/24 12/08/24 empagliflozin 25 mg tablet 25 mg PO DAILY 12/08/24 12/08/24 (Jardiance) lorazepam 0.5 mg tablet 0.5 mg PO ONCE PRN CATHETER CHANGE 12/08/24 12/08/24 risperidone 0.5 mg tablet 0.5 mg PO HS 12/08/24 12/08/24 Results & Data (ED) Vital Signs Vital Signs - 24 hr 12/08/24 07:30 12/08/24 07:42 12/08/24 07:49 Temperature 36.4 C 36.4 C Temperature Source Oral Oral Pulse Rate 78 99 H Pulse Rate [Apical] 78 Respiratory Rate 16 16 Respiratory Effort / Characteristics Non-Labored Spontaneous Non-Labored Spontaneous Respiratory Depth Normal Normal Respiratory Pattern Regular Regular Blood Pressure 94/56 L Blood Pressure [Right Arm] 94/56 L Blood Pressure Mean 68 Blood Pressure Mean [Right Arm] 68 Pulse Oximetry 95 95 Oxygen Delivery Method Room Air Room Air Sepsis Recent Fever Within 48 Hours No Sepsis New/Unexplained Change in Mental Status No Sepsis Action Taken by Nursing No Action Required 12/08/24 08:30 12/08/24 09:00 12/08/24 10:00 Temperature Temperature Source Pulse Rate Pulse Rate [Apical] 136 H 84 88 Respiratory Rate 16 16 16 Respiratory Effort / Characteristics Non-Labored Spontaneous Non-Labored Spontaneous Non-Labored Spontaneous Respiratory Depth Normal Normal Normal Respiratory Pattern Regular Regular Regular Blood Pressure Blood Pressure [Right Arm] 98/72 L 108/75 103/61 Blood Pressure Mean Blood Pressure Mean [Right Arm] 80 86 75 Pulse Oximetry 98 95 95 Oxygen Delivery Method Room Air Room Air Room Air Sepsis Recent Fever Within 48 Hours Sepsis New/Unexplained Change in Mental Status Sepsis Action Taken by Nursing 12/08/24 10:00 12/08/24 11:00 12/08/24 12:00 Temperature Temperature Source Pulse Rate Pulse Rate [Apical] 88 125 H 132 H Respiratory Rate 16 16 16 Respiratory Effort / Characteristics Non-Labored Spontaneous Non-Labored Spontaneous Non-Labored Spontaneous Respiratory Depth Normal Normal Normal Respiratory Pattern Blood Pressure Blood Pressure [Right Arm] 103/61 116/72 96/58 L Blood Pressure Mean Blood Pressure Mean [Right Arm] 75 86 70 Pulse Oximetry 95 95 97 Oxygen Delivery Method Room Air Room Air Room Air Sepsis Recent Fever Within 48 Hours Sepsis New/Unexplained Change in Mental Status Sepsis Action Taken by Nursing 12/08/24 13:00 12/08/24 14:00 Temperature Temperature Source Pulse Rate Pulse Rate [Apical] 126 H 128 H Respiratory Rate 12 16 Respiratory Effort / Characteristics Non-Labored Spontaneous Non-Labored Spontaneous Respiratory Depth Normal Normal Respiratory Pattern Blood Pressure Blood Pressure [Right Arm] 102/80 100/67 Blood Pressure Mean Blood Pressure Mean [Right Arm] 87 78 Pulse Oximetry 100 99 Oxygen Delivery Method Room Air Room Air Sepsis Recent Fever Within 48 Hours Sepsis New/Unexplained Change in Mental Status Sepsis Action Taken by Nursing Laboratory Data 12/08/24 08:58 12/08/24 08:58 Lab Results 12/08/24 12/08/24 12/08/24 Range/Units 08:58 09:11 10:14 WBC 13.59 H (4.8-10.8) K/ul RBC 5.09 (4.70-6.10) M/uL Hgb 15.4 (14.0-18.0) g/dl Hct 46.0 (42.0-52.0) % MCV 90.4 (80.0-100.0) fL MCH 30.3 (25.0-34.0) pg MCHC 33.5 (32.0-36.0) g/dL RDW Std Deviation 48.2 H (36.4-46.3) fL RDW Coeff of Carl[place] 14.5 (11.5-14.5) % Plt Count 314 (130-400) K/uL MPV 9.6 (9.4-12.4) fL Immature Gran % (Auto) 1.1 % Neut % (Auto) 82.1 % Lymph % (Auto) 7.5 % [place] % (Auto) 7.5 % Eos % (Auto) 1.1 % Baso % (Auto) 0.7 % Neut # (Auto) 11.16 H (1.40-6.50) K/uL Lymph # (Auto) 1.02 L (1.20-3.40) K/uL [place] # (Auto) 1.02 H (0.11-0.59) K/uL Eos # (Auto) 0.15 (0.00-0.50) K/uL Baso # (Auto) 0.09 (0.00-0.20) K/uL Immature Gran # (Auto) 0.15 (0.01-0.20) K/uL Sodium 138 (136-145) mmol/L Potassium 3.7 (3.5-5.1) mmol/L Chloride 106 (98-107) mmol/L Carbon Dioxide 22 (21-32) mmol/L Anion Gap 10 (3-11) BUN 12 (6-23) mg/dl Creatinine 0.81 (0.6-1.4) mg/dl Est Cr Clr Drug Dosing 96.2 ml/min eGFR 91.95 BUN/Creatinine Ratio 14.8 (10-20) Glucose 120 H (70-99(Fasting)) mg/dl Lactate 1.7 (0.4-2.0) mmol/L Calcium 9.0 (8.6-10.3) mg/dl Magnesium 2.1 (1.7-2.4) mg/dl Total Creatine Kinase 114 (30-223) U/L Troponin I High Sens 4.9 (0-20) pg/ml Urine Color [place] Urine Appearance Turbid A (Clear) Urine pH 5.0 (4.5-7.5) Ur Specific [place] 1.031 H (1.000-1.030) Urine Protein 3+ H (Negative) Urine Glucose (UA) 3+ H (Negative) Urine Ketones 1+ H (Negative) Urine Blood 3+ H (Negative) Urine Nitrite Positive A (Negative) Urine Bilirubin Negative (Negative) Urine Urobilinogen Negative (Negative) Ur Leukocyte Esterase 2+ H (Negative) Urine WBC (Auto) >50 H (0-5) /hpf Urine RBC (Auto) >20 H (0-2) /hpf U Hyaline Cast (Auto) 6-10 H (0-2) /lpf U Epithel Cells (Auto) 0-2 (0-2) /hpf Urine Bacteria (Auto) 3+ H (None Seen) Urine Comment Administered Medications Lactated Ringer's (Lr) 2,000 mls @ 999 mls/hr IV .Q2H1M ONE Stop: 12/08/24 14:37 Last Admin: 12/08/24 12:46 Dose: 999 mls/hr Documented By: TATI Discontinued Medications Sodium Chloride (Nss) 500 mls @ 999 mls/hr IV .Q31M ONE Stop: 12/08/24 08:13 Last Infusion: 12/08/24 09:31 Dose: Infused Documented By: Admin: 12/08/24 08:45 Dose: 999 mls/hr Documented By: ELLEN Meropenem 500 mg/ Syringe 10 mls @ 2 mls/min IV NOW STA; Protocol Stop: 12/08/24 10:51 Last Admin: 12/08/24 11:00 Dose: 2 mls/min Documented By: ELLEN Imaging Data Radiologist's Impression: Cervical Spine CT 12/08/24 07:40 Clinical history: Injury Technique: Axial computed tomography images were obtained of the cervical spine without intravenous contrast. Sagittal and coronal reconstructions were obtained Findings: No fracture is identified. There is 2 mm of anterolisthesis of C3 on C4. No focal osseous lesion is evident. There is atlantoaxial osteoarthritis At C2-3, there is spinal stenosis due to a disc bulge and a right paracentral disc herniation. There is mild bilateral neural foramen narrowing At C3-4, there is spinal stenosis due to a disc bulge and a central disc protrusion. There is bilateral neural foramen narrowing that may affect the exiting C4 nerve roots At C4-5, there is mild spinal stenosis due to a disc bulge and a central disc protrusion. There is left neural foramen narrowing that may affect the left C5 nerve root At C5-6, there is spinal stenosis due to a disc bulge and a central to right paracentral disc osteophyte protrusion. There is bilateral neural foramen narrowing that may affect the exiting C6 nerve roots At C6-7, there is a disc bulge without spinal stenosis. There is left greater than right neural foramen narrowing that may affect the left C7 nerve root At C7-T1, there is a disc bulge without spinal stenosis. The neural foramen are patent The lung apices appear clear. The visualized soft tissues of the neck appear unremarkable. No foreign body is seen Impression: 1. No definite cervical spine fracture 2. Mild anterolisthesis at C3-4, which may be degenerative 3. Spinal stenosis from C2-3 through C5-6 4. Bilateral C3-4, left C4-5, bilateral C5-6, and left C6-7 neural foramen narrowing. This may affect the exiting nerve roots ACT 112: Positive. There are findings on this exam that require communication between the performing entity and the patient following Patient Test Result Information Act ([place] ACT 112) guidelines. Electronically signed by Seymour Acosta 12-08-2024 09:12 AM Chest X-Ray 12/08/24 07:40 Technique: 2 frontal views of the chest were obtained Comparison is made to the prior examination dated 10/30/2024 Findings: There are no confluent pulmonary infiltrates. The heart size is within normal limits. No pleural effusion or pneumothorax is seen. There is no definite pulmonary nodule. No fracture is noted. There is thoracic degenerative disc disease. There are bilateral shoulder arthroplasties Impression: No active disease Electronically signed by Seymour Acosta 12-08-2024 08:38 AM Femur X-Ray 12/08/24 07:40 4 views of the left femur are submitted for review. Findings: No fracture or dislocation is seen. There is severe left hip osteoarthritis. No other osseous abnormality is identified. There are no radiopaque foreign bodies. Impression: Severe left hip osteoarthritis Electronically signed by Seymour Acosta 12-08-2024 08:[address] 12/08/24 07:40 Clinical History: Injury Technique: Axial computed tomography images were obtained of the brain without intravenous contrast. Findings: There is diffuse cerebral atrophy, within expected limits for the patient's age. Areas of decreased attenuation are seen within the periventricular white matter, likely representing chronic small vessel ischemic disease. There is no definite sign of acute or old infarction. No intracranial hemorrhage is evident. No definite mass lesion is seen on this noncontrast examination. There is no midline shift or other form of herniation. No hydrocephalus is seen. No fracture is identified. The orbits and the visualized paranasal sinuses appear unremarkable. The mastoid air cells appear clear. Impression: 1. Cerebral atrophy and chronic small vessel ischemic disease 2. Otherwise unremarkable noncontrast CT of the brain Electronically signed by Seymour Acosta 12-08-2024 09:25 AM Pelvis X-Ray 12/08/24 07:40 2 views of the pelvis are submitted for review. Findings: No fracture is seen. There is a right hip total arthroplasty in expected position. There is severe left hip osteoarthritis. No other osseous abnormality is identified. There are no radiopaque foreign bodies. Impression: 1. Right hip replacement 2. Severe left hip osteoarthritis Electronically signed by Seymour Acosta 12-08-2024 08:42 AM Discharge Plan Visit Data Chief Complaint: Fall ED Provider: Murtaza Carroll Discharge Problem: Catheter-associated urinary tract infection, Sepsis, Acute metabolic encephalopathy, Fall, Contusion of knee, left Patient Disposition: Admitted As Inpatient Condition: Fair Forms Stand Alone Forms: My [facility] Prescriptions Prescriptions: No Action quetiapine [Seroquel] 25 mg tablet 25 mg PO QAM Hold Instructions: Resume on 11/23/24. until seen by PCP - has not had while inpatient aspirin 81 mg Tablet,Delayed Release (Dr/Ec) 81 mg PO QAM rosuvastatin 20 mg Tablet 20 mg PO HS folic acid 1 mg Tablet 1 mg PO BID cholecalciferol (vitamin D3) [Vitamin D3] 50 mcg (2,000 unit) Capsule 50 mcg PO QAM pantoprazole 40 mg tablet,delayed release (DR/EC) 40 mg PO QAM melatonin 3 mg Tablet,Disintegrating 3 mg PO HS potassium chloride 10 mEq tablet,ER particles/crystals 10 meq PO TID multivitamin [Daily-Lala] Tablet 1 tab PO QAM clopidogrel 75 mg Tablet 75 mg PO QAM nystatin 100,000 unit/gram Cream 1 applic TOPICAL BID Rx Instructions: apply to scrotal area metoprolol succinate 25 mg Tablet Extended Release 24 Hr 25 mg PO BID Eliquis 5 mg Tablet 5 mg PO BID insulin glargine [Lantus Solostar U-100 Insulin] 100 unit/mL (3 mL) Insulin Pen 7 unit SUBCUT HS acetaminophen 325 mg Tablet 650 mg PO TID PRN (Reason: Pain) doxazosin 1 mg Tablet 1 mg PO HS lorazepam 0.5 mg Tablet 0.5 mg PO ONCE PRN (Reason: CATHETER CHANGE) Rx Instructions: 1/2 HOUR PRIOR TO CATHETER CHANGES risperidone 0.5 mg Tablet 0.5 mg PO HS Jardiance 25 mg Tablet 25 mg PO DAILY sennosides-docusate sodium [Senna with Docusate Sodium] 8.6-50 mg Tablet 1 tab-cap PO DAILY PRN (Reason: Constipation) loperamide 2 mg Tablet 2 mg PO Q6H PRN (Reason: Diarrhea) Referrals Referrals: Justo Burgos DO [Primary Care Provider] - Discharge Problem: Catheter-associated urinary tract infection Qualifiers: Indwelling urinary catheter type: indwelling urethral catheter Encounter type: initial encounter Qualified Code(s): T83.511A - Infection and inflammatory reaction due to indwelling urethral catheter, initial encounter; N39.0 - Urinary tract infection, site not specified Sepsis Qualifiers: Sepsis type: sepsis due to unspecified organism Sepsis acute organ dysfunction status: with acute organ dysfunction Severe sepsis acute organ dysfunction type: encephalopathy Severe sepsis shock status: without septic shock Qualified Code(s): A41.9 - Sepsis, unspecified organism; R65.20 - Severe sepsis without septic shock; G93.41 - Metabolic encephalopathy Fall Qualifiers: Encounter type: initial encounter Qualified Code(s): W19.XXXA - Unspecified fall, initial encounter Contusion of knee, left Qualifiers: Encounter type: initial encounter Qualified Code(s): S80.02XA - Contusion of left knee, initial encounter
--- NOTE | 2024-12-08 08:39 | XRay Report ---
Technique: 2 frontal views of the chest were obtained Comparison is made to the prior examination dated 10/30/2024 Findings: There are no confluent pulmonary infiltrates. The heart size is within normal limits. No pleural effusion or pneumothorax is seen. There is no definite pulmonary nodule. No fracture is noted. There is thoracic degenerative disc disease. There are bilateral shoulder arthroplasties Impression: No active disease Electronically signed by Seymour Acosta 12-08-2024 08:38 AM
--- NOTE | 2024-12-08 08:41 | XRay Report ---
4 views of the left femur are submitted for review. Findings: No fracture or dislocation is seen. There is severe left hip osteoarthritis. No other osseous abnormality is identified. There are no radiopaque foreign bodies. Impression: Severe left hip osteoarthritis Electronically signed by Seymour Acosta 12-08-2024 08:41 AM
--- NOTE | 2024-12-08 08:42 | XRay Report ---
2 views of the pelvis are submitted for review. Findings: No fracture is seen. There is a right hip total arthroplasty in expected position. There is severe left hip osteoarthritis. No other osseous abnormality is identified. There are no radiopaque foreign bodies. Impression: 1. Right hip replacement 2. Severe left hip osteoarthritis Electronically signed by Seymour Acosta 12-08-2024 08:42 AM
[2024-12-08] MEDS: SODIUM CHLORIDE 0.9% 500 ML IV ONE (08:45)
--- NOTE | 2024-12-08 09:12 | CT Scan Report ---
Clinical history: Injury Technique: Axial computed tomography images were obtained of the cervical spine without intravenous contrast. Sagittal and coronal reconstructions were obtained Findings: No fracture is identified. There is 2 mm of anterolisthesis of C3 on C4. No focal osseous lesion is evident. There is atlantoaxial osteoarthritis At C2-3, there is spinal stenosis due to a disc bulge and a right paracentral disc herniation. There is mild bilateral neural foramen narrowing At C3-4, there is spinal stenosis due to a disc bulge and a central disc protrusion. There is bilateral neural foramen narrowing that may affect the exiting C4 nerve roots At C4-5, there is mild spinal stenosis due to a disc bulge and a central disc protrusion. There is left neural foramen narrowing that may affect the left C5 nerve root At C5-6, there is spinal stenosis due to a disc bulge and a central to right paracentral disc osteophyte protrusion. There is bilateral neural foramen narrowing that may affect the exiting C6 nerve roots At C6-7, there is a disc bulge without spinal stenosis. There is left greater than right neural foramen narrowing that may affect the left C7 nerve root At C7-T1, there is a disc bulge without spinal stenosis. The neural foramen are patent The lung apices appear clear. The visualized soft tissues of the neck appear unremarkable. No foreign body is seen Impression: 1. No definite cervical spine fracture 2. Mild anterolisthesis at C3-4, which may be degenerative 3. Spinal stenosis from C2-3 through C5-6 4. Bilateral C3-4, left C4-5, bilateral C5-6, and left C6-7 neural foramen narrowing. This may affect the exiting nerve roots ACT 112: Positive. There are findings on this exam that require communication between the performing entity and the patient following Patient Test Result Information Act ([place] ACT 112) guidelines. Electronically signed by Seymour Acosta 12-08-2024 09:12 AM
[2024-12-08 09:26] LABS: Hematocrit (blood only) 46.0 % (42.0-52.0); Hemoglobin 15.4 g/dl (14.0-18.0); Immature Granulocytes # (auto) 0.15 K/uL (0.01-0.20); Immature Granulocytes % (auto) 1.1 %; Mean Corpuscular Hemoglobin 30.3 pg (25.0-34.0); Mean Corpuscular Volume 90.4 fL (80.0-100.0); Platelet Count 314 K/uL (130-400); RDW Standard Deviation 48.2 fL (36.4-46.3); Red Blood Count 5.09 M/uL (4.70-6.10); White Blood Count 13.59 K/ul (4.8-10.8)
--- NOTE | 2024-12-08 09:26 | CT Scan Report ---
Clinical History: Injury Technique: Axial computed tomography images were obtained of the brain without intravenous contrast. Findings: There is diffuse cerebral atrophy, within expected limits for the patient's age. Areas of decreased attenuation are seen within the periventricular white matter, likely representing chronic small vessel ischemic disease. There is no definite sign of acute or old infarction. No intracranial hemorrhage is evident. No definite mass lesion is seen on this noncontrast examination. There is no midline shift or other form of herniation. No hydrocephalus is seen. No fracture is identified. The orbits and the visualized paranasal sinuses appear unremarkable. The mastoid air cells appear clear. Impression: 1. Cerebral atrophy and chronic small vessel ischemic disease 2. Otherwise unremarkable noncontrast CT of the brain Electronically signed by Seymour Acosta 12-08-2024 09:25 AM
[2024-12-08 09:45] LABS: Anion Gap 10.0 (3-11); Blood Urea Nitrogen 12.0 mg/dl (6-23); Calcium 9.0 mg/dl (8.6-10.3); Carbon Dioxide 22.0 mmol/L (21-32); Chloride 106.0 mmol/L (98-107); Creatine Kinase 114.0 U/L (30-223); Creatinine Clr Calc Pharmacy 96.2 ml/min; Glucose 120.0 mg/dl (70-99(Fasting)); Magnesium 2.1 mg/dl (1.7-2.4); Potassium 3.7 mmol/L (3.5-5.1); Sodium 138.0 mmol/L (136-145)
[2024-12-08 10:38] LABS: Appearance Urine Turbid (Clear); Bacteria Urine Automated 3+ (None Seen); Epithelial Cell Urine Auto 0-2 /hpf (0-2); Glucose Urine UA 3+ (Negative); RBC Urine Automated >20 /hpf (0-2); WBC Urine Automated >50 /hpf (0-5)
[2024-12-08] MEDS: MEROPENEM 500 MG in SYRINGE 0 ML IV STA (11:00)
--- NOTE | 2024-12-08 11:56 | Electrocardiogram Report ---
Test Reason : Blood Pressure : */* mmHG Vent. Rate : 128 BPM Atrial Rate : * BPM P-R Int : * ms QRS Dur : 78 ms QT Int : 342 ms P-R-T Axes : * 81 36 degrees QTcB Int : 499 ms Atrial fibrillation with rapid ventricular response Low voltage QRS Abnormal ECG When compared with ECG of 30-Oct-2024 15:54, No significant change was found Confirmed by Enio Epperson ([id number]) on 12/08/2024 11:55:31 AM Referred By: [facility] Confirmed By: Enio Epperson
[2024-12-08] MEDS: LACTATED RINGER'S 2,000 ML IV ONE (12:46)
--- NOTE | 2024-12-08 13:38 | History & Physical Report ---
Date of Service December 08, 2024 Assessment & Plan (1) Sepsis: (2) Left leg cellulitis: (3) Catheter-associated urinary tract infection: (4) Atrial fibrillation with RVR: (5) Diabetes mellitus: Plan # Sepsis Sepsis due to CAUTI and/or left lower extremity cellulitis. Diagnostic plan: Follow up blood and urine cultures. BMP and CBC in the morning. Treatment plan: Received 500 mL normal saline in ED. Additional 2 L cautiously due to heart failure. Total 30 mL/kg bolus about 3.3 L which he may not tolerate. Continue meropenem every 6 hours for CAUTI - known to be colonized with ESBL E. coli, and Pseudomonas aeruginosa. MRSA infection of left lower extremity not highly suspected, non-purulent, expected to respond to meropenem. # Atrial fibrillation with rapid ventricular rate Atrial fibrillation with rapid ventricular rate. Rates in 80s to 140s. Chronic atrial fibrillation. Treatment plan: Mildly hypotensive, hold metoprolol. Resume IV or oral if BP improves. If remains hypotensive with rapid atrial fibrillation, amiodarone IV bolus and drip needed. Continue apixaban 5 mg twice daily for anticoagulation. # Diabetes type 2 Diabetes type 2. Recent A1c 6.8% Treatment plan: Hold empagliflozin. Continue glargine 7 units at bedtime, premeal aspart 55:18, monitor BG # Chronic HFpEF and right heart failure Chronic HFpEF and right heart failure not in exacerbation. Clinical decision making: Not chronically on diuretics. Caution with IV fluid boluses. Resume metoprolol when able # Coronary artery disease Coronary artery disease. Stable Treatment plan: Continue DAPT with aspirin and clopidogrel. Investigate why he is on both DAPT and apixaban. Had coronary stents but in remote past. # Chronic Estevez catheter, BPH Chronic Estevez catheter, BPH. Treatment plan: Hold doxazosin due to hypotension, continue urinary catheter. # Significant dementia with behavioral disturbance Treatment plan: Continue morning Seroquel and evening risperidone. At high risk of delirium, avoid sedating meds # Sacral decubitus ulcer Sacral decubitus ulcer present on admission. Diagnostic plan: Wound ostomy nurse consulted. Treatment plan: Continue frequent turning and pressure offloading. # Obstructive sleep apnea Obstructive sleep apnea. Treatment plan: Continue CPAP therapy at bedtime. # Venous stasis edema and dermatitis bilateral lower extremities Venous stasis edema and dermatitis bilateral lower extremities. Treatment plan: Continue leg elevation and wound care. # History of DVT Treatment plan: Continue apixaban for prophylaxis. Medical Complexity: Medical decision making was complex, high risk for clinical deterioration because of sepsis and hypotension. Unstable conditions include sepsis, atrial fibrillation with rapid ventricular rate High risk medications and treatments include meropenem, apixaban History of Present Illness Chief Complaint: Sent in from [facility] with recurrent falls Primary Care Provider: Justo Burgos, The patient consented to use of [employer], an AI based tool that will listen to our encounter and draft a clinical note based on our conversation. All notes will be reviewed and edited by me before entering them into the medical record. The patient presents following a fall from his bed yesterday, cause unknown. Found on the bathroom floor this morning, no memory of the incident. Reports persistent left knee pain, previously evaluated for surgery but deemed unnecessary. Swelling in legs over the weekend, not experienced in a long time. History of arthritis, hereditary from his mother. No abdominal or back pain, chest pain, shortness of breath, cough, or pain associated with his catheter or bladder spasms. History is limited because of dementia. Experiencing soreness in right neck and shoulder for 3-5 weeks, cause unknown. No cardiac symptoms such as chest pain or palpitations. History of smoking, quit long ago. Allergies Allergy/AdvReac Type Severity Reaction Status Date / Time NBA Inhibitors AdvReac Unknown to be Verified 06/12/24 13:22 avoided per [facility] EMR ARB-Angiotensin Receptor AdvReac Unknown to be Verified 06/12/24 12:34 Antagonist avoided per [facility] EMR Home Medications Medication Instructions Recorded Confirmed Type aspirin 81 mg tablet,delayed 81 mg PO QAM 05/18/18 12/08/24 History release folic acid 1 mg tablet 1 mg PO BID 05/18/18 12/08/24 History rosuvastatin 20 mg tablet 20 mg PO HS 05/18/18 12/08/24 History cholecalciferol (vitamin D3) 50 50 mcg PO QAM 09/04/19 12/08/24 History mcg (2,000 unit) capsule (Vitamin D3) pantoprazole 40 mg tablet,delayed 40 mg PO QAM 02/18/23 12/08/24 History release melatonin 3 mg disintegrating 3 mg PO HS 03/26/23 12/08/24 History tablet multivitamin (Daily-Lala tablet) 1 tab PO QAM 03/26/23 12/08/24 History potassium chloride 10 mEq 10 meq PO TID 03/26/23 12/08/24 History tablet,extended release(part/cryst) clopidogrel 75 mg tablet 75 mg PO QAM 10/22/23 12/08/24 History nystatin 100,000 unit/gram topical 1 applic topical BID 10/22/23 12/08/24 History cream quetiapine 25 mg tablet (Seroquel) 25 mg PO QAM 05/17/24 12/08/24 History sennosides 8.6 mg-docusate sodium 1 tab-cap PO DAILY PRN Constipation 05/20/24 12/08/24 History 50 mg tablet (Senna with Docusate Sodium) apixaban 5 mg tablet (Eliquis) 5 mg PO BID 10/18/24 12/08/24 History insulin glargine 100 unit/mL (3 7 unit subcut HS 10/18/24 12/08/24 History mL) subcutaneous pen (Lantus Solostar U-100 Insulin) metoprolol succinate 25 mg 25 mg PO BID 10/18/24 12/08/24 History tablet,extended release 24 hr loperamide 2 mg tablet 2 mg PO Q6H PRN Diarrhea 10/30/24 12/08/24 History acetaminophen 325 mg tablet 650 mg PO TID PRN Pain 12/08/24 12/08/24 History doxazosin 1 mg tablet 1 mg PO HS 12/08/24 12/08/24 History empagliflozin 25 mg tablet 25 mg PO DAILY 12/08/24 12/08/24 History (Jardiance) lorazepam 0.5 mg tablet 0.5 mg PO ONCE PRN CATHETER CHANGE 12/08/24 12/08/24 H istory risperidone 0.5 mg tablet 0.5 mg PO HS 12/08/24 12/08/24 History Past Med/Surg History Problem List (Updated 12/08/24 @ 13:32 by Tricia Cruz MD) Left leg cellulitis Metabolic encephalopathy Mood disorder MAMI (obstructive sleep apnea) Diabetes mellitus GAGAN (acute kidney injury) Groin rash Osteoarthritis of left hip Atrial fibrillation with RVR (Acute) Sepsis Groin rash Atrial fibrillation with RVR Catheter-associated urinary tract infection (Acute) Sepsis (Acute) Chronic indwelling Estevez catheter (Acute) Groin pain (Acute) Cognitive impairment (Acute) Morbid obesity with BMI of 40.0-44.9, adult Self-care deficit Obstructive sleep apnea DVT (deep venous thrombosis) (Acute ~05/20/24) Chronic venous insufficiency (Chronic) Arthritis of left hip CAD (coronary artery disease) Persistent atrial fibrillation Encounter for pre-operative examination Hypertension Diabetes (Chronic) NIDDM DJD of shoulder (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) Medical History History of pyelonephritis (~05/26/24) UTI/pyelonephritis/sepsis/delirium-hospitalized at [facility] 05/20- Carotid artery stenosis < 50% stenosis on 01/2023 carotid doppler On anticoagulant therapy History of cardioversion Cellulitis of groin scrotal cellulitis/SIRS hospitalization at [facility] 05/29- Weakness Acute alteration in mental status L5 vertebral fracture Lymphedema Sacral wound ongoing [facility] resident [facility] Indwelling Estevez catheter present Hypotension Chronic venous insufficiency Dementia DVT (deep venous thrombosis) (~05/20/24) Diastolic heart failure CAD (coronary artery disease) s/p BMS to RCA in 1997 IBS (irritable bowel syndrome) Chronic obstructive pulmonary disease group C per S EMR Sleep apnea denies currently using CPAP Osteoarthritis Diabetes mellitus, type 2 Hearing deficit [place] Hyperlipidemia Atrial fibrillation lost to f/u with [facility] cardiology Pilonidal cyst Depression Obesity Anemia Migraines Myocardial infarction 1997 Chronic GERD controlled, stable per pt Surgical History History of heart artery stent 1997 - [place] - 1 stent placed - hospital in [place], [place] reports had another cath early in [place] - no stents/angioplasty History of cataract surgery right and left History of total hip arthroplasty RT History of total shoulder replacement BL History of esophagogastroduodenoscopy (EGD) H/O colonoscopy Hx laparoscopic cholecystectomy Family History Brother Family history of diabetes mellitus X2 Social History Smoking Status: Never smoker Tobacco Type: Cigarettes Second Hand Exposure: No; Do You Dip or Chew Tobacco: No; Hx Alcohol Use: No Hx Substance Use: No Preferred Language: Mozambican Communication Ability: Impaired Complex Care Nurse Required: No Beliefs That Will Affect Care: None Current Living Situation: Personal Care Facility Feels Safe at Home: Yes Assistive Devices: Walker and Wheelchair Review of Systems Review of Systems: All systems reviewed & are unremarkable except as noted in HPI & below Physical Exam Physical Exam: General Appearance: Normal. Vital signs: Within normal limits. HEENT: atraumatic, no posterior neck tenderness, full ROM of neck without pain or tenderness Respiratory: Comfortable work of breathing. Lungs clear anteriorly and posteriorly. Cardiovascular: Distant heart sounds, irreg irreg and tachycardic. No murmurs. Gastrointestinal: Soft, nondistended. No suprapubic tenderness. +BT Back, Musculoskeletal: No deformity or tenderness in hips and knees. Extremities: Bilateral 3+ edema in legs, extending to top of thighs. Skin: Redness on left lower haque from above the ankle with light pink tracking to the top of the haque. Minor abrasion on left knee. No knee effusion. Bilateral venous stasis dermatitis and erythema. Slight weeping and ulceration left lower anterior haque Neurological: Oriented to self and hospital, forgetful, poor historian and confabulates some. Face symmetric sid EOMI speech normal moves 4 ext equally. Bilateral LE weakness Psychiatric: Normal. Results & Data Results & Data Vital Signs (Past 12 Hours) Vital Signs Temp Pulse Pulse Resp BP BP Pulse Ox 12/08/24 13:00 126 H 12 102/80 100 12/08/24 12:00 132 H 16 96/58 L 97 12/08/24 11:00 125 H 16 116/72 95 12/08/24 10:00 88 16 103/61 95 12/08/24 10:00 88 16 103/61 95 12/08/24 09:00 84 16 108/75 95 12/08/24 08:30 136 H 16 98/72 L 98 12/08/24 07:49 99 H 12/08/24 07:42 36.4 C 78 16 94/56 L 95 12/08/24 07:30 36.4 C 78 16 94/56 L 95 O2 Del Method 12/08/24 13:00 Room Air 12/08/24 12:00 Room Air 12/08/24 11:00 Room Air 12/08/24 10:00 Room Air 12/08/24 10:00 Room Air 12/08/24 09:00 Room Air 12/08/24 08:30 Room Air 12/08/24 07:49 12/08/24 07:42 Room Air 12/08/24 07:30 Room Air Laboratory Results - Labs: - WBC: 13.5 - Hemoglobin: 15.4 - Platelet count: Normal - Sodium: 138 - Potassium: 3.7 - Anion gap: 10 - Creatinine: 0.81 - Glucose: 120 - Lactate: 1.7 - Calcium: Normal - Magnesium: Normal - CK: 114 - High sensitivity troponin: 4.9 - Urinalysis: Grossly abnormal with 3+ bacteria - Imaging: - Pelvis x-ray: Right hip replacement, severe left hip OA, no fracture or dislocation - Head CT: Cerebral atrophy, chronic small vessel ischemic disease, no acute issues - Left femur x-ray: No fracture, severe left hip OA - Chest x-ray: No pulmonary infiltrates, personally reviewed film - CT of C-spine: No fractures, spinal stenosis with bilateral multilevel neural foramen narrowing - Diagnostic Testing: - EKG: Atrial fibrillation with rapid rate, low voltage, unchanged from previous, personally reviewed the EKG tracing Code Status & VTE Plan VTE Prophylaxis Plan VTE Prophylaxis will be ordered: Yes PG Care Time/CCT Total # of Minutes Spent Total Time Spent with Patient: Total time spent is greater than 50% in coordination of care (as documented) at patient's floor/unit and/or counseling patient: Coding Level of Care Code 48957 INT INP/OBS CARE 3/75MIN Diagnoses Sepsis A41.9 Left leg cellulitis L03.116 Catheter-associated urinary tract infection T83.511A; N39.0 Encounter type: initial encounter Indwelling urinary catheter type: indwelling urethral catheter Atrial fibrillation with RVR I48.91 Diabetes mellitus E11.9 (3) Catheter-associated urinary tract infection Encounter type: initial encounter Indwelling urinary catheter type: indwelling urethral catheter Qualified Code(s): T83.511A - Infection and inflammatory reaction due to indwelling urethral catheter, initial encounter; N39.0 - Urinary tract infection, site not specified
[2024-12-08] MEDS ORDERED: GLUCOSE 40% GEL 15 GM TUBE PO PRN (15:22)
[2024-12-08] MEDS ORDERED: GLUCOSE 10 TAB/TUBE PO PRN (15:22)
[2024-12-08] MEDS ORDERED: ONDANSETRON INJ 2 MG/ML 2 ML VIAL IV PRN (15:22)
[2024-12-08] MEDS ORDERED: LORazepam 0.5 MG TAB PO PRN (15:22)
[2024-12-08] MEDS ORDERED: POLYETHYLENE (MIRALAX) 17 GM PACK PO PRN (15:22)
[2024-12-08] MEDS ORDERED: MAGNESIUM HYDROXIDE SUSP 30 ML UDC PO PRN (15:22)
[2024-12-08] MEDS ORDERED: GLUCAGON FOR INJ 1 MG VIAL SQ PRN (15:22)
[2024-12-08] MEDS ORDERED: DEXTROSE 50% 50 ML SYRINGE IV PRN (15:22)
[2024-12-08] MEDS ORDERED: ALUMINUM/MAGNESIUM SUSP 30 ML UDC PO PRN (15:22)
[2024-12-08] MEDS ORDERED: LOPERAMIDE HCL 2 MG CAP PO PRN (15:27)
[2024-12-08] MEDS: POTASSIUM CHLORIDE 10 MEQ TABCR PO SCH (16:06)
[2024-12-08] MEDS: SODIUM CHLORIDE 0.9% 1,000 ML IV SCH (16:06)
[2024-12-08] MEDS: INSULIN ASPART PER UNIT CHARGE SC SCH (17:12)
[2024-12-08] MEDS: MEROPENEM 500 MG in SYRINGE 0 ML IV SCH (17:12)
[2024-12-08] MEDS ORDERED: METOPROLOL TARTRATE 1 MG/ML VIAL IV PRN (19:12)
[2024-12-08] MEDS ORDERED: NON-FORMULARY MEDICATION (Insulin Glargine [Lantus Solostar U-100 Insulin] 100 unit/mL (3 SQ SCH (21:00)
[2024-12-08] MEDS: MELATONIN 3 MG TAB PO SCH (21:52)
[2024-12-08] MEDS: NYSTATIN CR 15 GM TUBE EXT SCH (21:53)
[2024-12-08] MEDS: LANTUS PER UNIT CHARGE SC SCH (21:53)
[2024-12-08] MEDS: APIXABAN 5 MG TABLET PO SCH (21:54)
[2024-12-08] MEDS: ROSUVASTATIN CALCIUM 20 MG TAB PO SCH (21:54)
[2024-12-09 06:27] LABS: Hematocrit (blood only) 37.0 % (42.0-52.0); Hemoglobin 12.3 g/dl (14.0-18.0); Mean Corpuscular Hemoglobin 29.9 pg (25.0-34.0); Mean Corpuscular Volume 89.8 fL (80.0-100.0); Platelet Count 255 K/uL (130-400); RDW Standard Deviation 48.4 fL (36.4-46.3); Red Blood Count 4.12 M/uL (4.70-6.10); White Blood Count 11.92 K/ul (4.8-10.8)
[2024-12-09 06:33] LABS: Anion Gap 7.0 (3-11); Blood Urea Nitrogen 10.0 mg/dl (6-23); Calcium 8.0 mg/dl (8.6-10.3); Carbon Dioxide 21.0 mmol/L (21-32); Chloride 109.0 mmol/L (98-107); Creatinine Clr Calc Pharmacy 115.8 ml/min; Glucose 70.0 mg/dl (70-99(Fasting)); Magnesium 1.8 mg/dl (1.7-2.4); Potassium 3.9 mmol/L (3.5-5.1); Sodium 137.0 mmol/L (136-145)
[2024-12-09] MEDS: CLOPIDOGREL BISULFATE 75 MG TAB PO SCH (08:00)
[2024-12-09] MEDS: ASPIRIN 81 MG ECTAB PO SCH (08:00)
[2024-12-09] MEDS: ACETAMINOPHEN 325 MG TAB PO PRN (08:27)
[2024-12-09] MEDS: METOPROLOL SUCC 25MG EXT REL TAB PO SCH (09:26)
[2024-12-09 11:19] LABS: Appearance Urine Clear (Clear); Bacteria Urine Automated None Seen (None Seen); Cast Urine Automated 0-2 /lpf (0-2); Epithelial Cell Urine Auto 0-2 /hpf (0-2); Glucose Urine UA 3+ (Negative); WBC Urine Automated >50 /hpf (0-5)
[2024-12-09 15:35] LABS: Appearance Urine Clear (Clear); Bacteria Urine Automated None Seen (None Seen); Cast Urine Automated 0-2 /lpf (0-2); Epithelial Cell Urine Auto 0-2 /hpf (0-2); Glucose Urine UA 2+ (Negative); RBC Urine Automated >20 /hpf (0-2); WBC Urine Automated >50 /hpf (0-5)
--- NOTE | 2024-12-09 17:22 | Hospitalist Progress Note ---
Date of Service December 09, 2024 Assessment & Plan (1) Sepsis: (2) Left leg cellulitis: (3) Catheter-associated urinary tract infection: (4) Atrial fibrillation with RVR: (5) Diabetes mellitus: Plan # Sepsis - improved, still mildly hypotensive and tachycardic Sepsis due to CAUTI and/or left lower extremity cellulitis. Diagnostic plan: Follow up blood and urine cultures. BMP and CBC reviewed - mild leukocytosis persists Treatment plan: Continue meropenem every 6 hours for CAUTI - known to be colonized with ESBL E. coli, and Pseudomonas aeruginosa. MRSA infection of left lower extremity not highly suspected, non-purulent, responding to meropenem. # Atrial fibrillation with rapid ventricular rate Atrial fibrillation with rapid ventricular rate persists though improved. Chronic atrial fibrillation. Treatment plan: Resume metoprolol po bid, metoprolol 5 mg IV PRN HR sustaining >120. Continue apixaban 5 mg twice daily for anticoagulation. # Diabetes type 2 Diabetes type 2. Recent A1c 6.8% Treatment plan: Hold empagliflozin. Hypoglycemic, stop glargine, cont premeal aspart 55:18, monitor BG # Chronic HFpEF and right heart failure Chronic HFpEF and right heart failure not in exacerbation. Clinical decision making: Not chronically on diuretics. Resume metoprolol # Coronary artery disease Coronary artery disease. Stable Treatment plan: Continue DAPT with aspirin and clopidogrel. B-windy Investigate why he is on both DAPT and apixaban. Had coronary stents but in remote past. # Chronic Foote catheter, BPH Chronic Foote catheter, BPH. Treatment plan: Hold doxazosin due to hypotension, changed urinary catheter today - initially stuck then bloody output when removed, when new foote placed had immediate 700 mL output. Possibly old foote was partially obstructed. Resubmitting UA and culture # Significant dementia with behavioral disturbance Treatment plan: Continue morning Seroquel and evening risperidone. At high risk of delirium, avoid sedating meds Stable # Sacral decubitus ulcer Sacral decubitus ulcer present on admission. Diagnostic plan: Wound ostomy nurse consulted. Treatment plan: Continue frequent turning and pressure offloading. # Obstructive sleep apnea Obstructive sleep apnea. Treatment plan: Continue CPAP therapy at bedtime. # Venous stasis edema and dermatitis bilateral lower extremities Venous stasis edema and dermatitis bilateral lower extremities. Treatment plan: Continue leg elevation and wound care. # History of DVT Treatment plan: Continue apixaban for prophylaxis. Medical Complexity: Medical decision making was complex, high risk for clinical deterioration because of sepsis and hypotension, rapid atrial fibrillation. Unstable conditions include sepsis, atrial fibrillation with rapid ventricular rate High risk medications and treatments include meropenem, apixaban Admission and Anticipated Discharge Date Admission Date: December 08, 2024 Subjective The patient consented to use of [employer], an AI based tool that will listen to our encounter and draft a clinical note based on our conversation. All notes will be reviewed and edited by me before entering them into the medical record. Reason for Admit: Sepsis, atrial fibrillation, and skin infection. Patient reports feeling well today, with no dyspnea or chest pain. Respiratory function is normal. Skin infection on left leg has improved. Redness on left haque decreased, extending detention up the haque. Venous stasis on both ankles, with small ulcerations on the front of the left ankle no longer draining. Feet are warm, and leg edema has slightly improved. Abrasion on left kneecap and ulceration on right buttock and upper thigh. Applying lotion to these areas. Physical Exam 2 Physical Exam: General Appearance: Alert. Vital signs: Within normal limits. HEENT: Within normal limits. Respiratory: Lungs clear anteriorly and posteriorly. Cardiovascular: Irregularly irregular, slightly tachycardic. No murmurs. Extremities: Venous stasis on both ankles, with small ulcerations on the front of the left ankle not draining anymore. Feet warm. Leg edema 2+ but improved. Minimal abrasion on left kneecap. Skin: Redness on left haque improved, extending detention up the haque. Neurological: Normal. Psychiatric: Normal. Results & Data Results & Data Vital Signs (Past 12 Hours) Vital Signs Temp Pulse Pulse Resp BP Pulse Ox Pulse Ox 12/09/24 15:03 36.4 C L 120 H 16 90/58 L 96 12/09/24 14:14 119 H 12/09/24 11:28 36.8 C 112 H 21 114/71 93 12/09/24 07:53 95 12/09/24 07:53 36.9 C 122 H 22 105/64 95 12/09/24 07:00 118 H 12/09/24 07:00 96 O2 Del Method O2 Del Method 12/09/24 15:03 Room Air 12/09/24 14:14 12/09/24 11:28 Room Air 12/09/24 07:53 Room Air 12/09/24 07:53 Room Air 12/09/24 07:00 12/09/24 07:00 Room Air Laboratory Results 12/09/24 05:42 12/09/24 05:42 PG Care Time/CCT Total # of Minutes Spent Total Time Spent with Patient: Total time spent is greater than 50% in coordination of care (as documented) at patient's floor/unit and/or counseling patient: Coding Level of Care Code 84143 SUB INP/OBS CARE 3/50MIN Diagnoses Sepsis A41.9 Left leg cellulitis L03.116 Catheter-associated urinary tract infection T83.511A; N39.0 Encounter type: initial encounter Indwelling urinary catheter type: indwelling urethral catheter Atrial fibrillation with RVR I48.91 Diabetes mellitus E11.9 (3) Catheter-associated urinary tract infection Encounter type: initial encounter Indwelling urinary catheter type: i ndwelling urethral catheter Qualified Code(s): T83.511A - Infection and inflammatory reaction due to indwelling urethral catheter, initial encounter; N39.0 - Urinary tract infection, site not specified
[2024-12-10] MEDS: CARBOHYDRATES FOR HYPOGLYCEMIA PO PRN (07:41)
[2024-12-10] MEDS: D5W AND NSS 1,000 ML IV SCH (07:52)
[2024-12-10 08:21] LABS: Anion Gap 8.0 (3-11); Blood Urea Nitrogen 11.0 mg/dl (6-23); Calcium 8.2 mg/dl (8.6-10.3); Carbon Dioxide 21.0 mmol/L (21-32); Chloride 108.0 mmol/L (98-107); Creatinine Clr Calc Pharmacy 109.1 ml/min; Glucose 75.0 mg/dl (70-99(Fasting)); Potassium 4.1 mmol/L (3.5-5.1); Sodium 137.0 mmol/L (136-145)
--- NOTE | 2024-12-10 17:27 | Hospitalist Progress Note ---
Date of Service December 10, 2024 Assessment & Plan (1) Sepsis: (2) Left leg cellulitis: (3) Catheter-associated urinary tract infection: (4) Atrial fibrillation with RVR: (5) Diabetes mellitus: Plan 74 y/o with chronic foote and venous stasis disease admitted with sepsis due to LLE cellulitis and rapid atrial fibrillation # Sepsis - improved, still mildly hypotensive and tachycardic. Based on review of old charts he may have some baseline hypotension Sepsis due to left lower extremity cellulitis. CAUTI ruled out - cultures negative Diagnostic plan: Follow up blood cultures. CBC in AM Treatment plan: stop meropenem and change to cefazolin for SSTI LLE # Atrial fibrillation with rapid ventricular rate Atrial fibrillation with rapid ventricular rate persists though improved, physiologic rate. Chronic atrial fibrillation. Treatment plan: Continue toprol XL and lowered holding parameters. Continue metoprolol 5 mg IV PRN HR >120. Continue apixaban 5 mg twice daily for anticoagulation. # Diabetes type 2 Diabetes type 2. Recent A1c 6.8% Treatment plan: Hold empagliflozin. Hypoglycemic, stop glargine, cont premeal aspart 55:18, monitor BG -hypoglycemic this AM from glargine, stopped, improved on D5 NS # Chronic HFpEF and right heart failure Chronic HFpEF and right heart failure not in exacerbation. Clinical decision making: Not chronically on diuretics. Resumed metoprolol # Coronary artery disease Coronary artery disease. Stable Treatment plan: Continue DAPT with aspirin and clopidogrel. B-windy Investigate why he is on both DAPT and apixaban. Had coronary stents but in remote past. # Chronic Foote catheter, BPH Chronic Foote catheter, BPH. Treatment plan: Hold doxazosin due to hypotension, changed urinary catheter 12/09. Appeared to have been partially obstructed # Significant dementia with behavioral disturbance Treatment plan: Continue morning Seroquel and evening risperidone. At high risk of delirium, avoid sedating meds Stable # Sacral decubitus ulcer Sacral decubitus ulcer present on admission. Diagnostic plan: Wound ostomy nurse consulted. Treatment plan: Continue frequent turning and pressure offloading. # Obstructive sleep apnea Obstructive sleep apnea. Treatment plan: Continue CPAP therapy at bedtime. # Venous stasis edema and dermatitis bilateral lower extremities Venous stasis edema and dermatitis bilateral lower extremities. Treatment plan: Continue leg elevation and wound care. # History of DVT Treatment plan: Continue apixaban for prophylaxis. Medical Complexity: Medical decision making was complex, high risk for clinical deterioration because of sepsis and hypotension, rapid atrial fibrillation. Unstable conditions include sepsis, atrial fibrillation with rapid ventricular rate High risk medications and treatments include IV metoprolol, apixaban Admission and Anticipated Discharge Date Admission Date: December 08, 2024 Subjective Feels good and no dyspnea CP or abdominal pain today Urine in catheter is clear Pleasantly confused Physical Exam 2 Physical Exam: General Appearance: Alert. Vital signs: Within normal limits. HEENT: Within normal limits. Respiratory: Lungs clear anteriorly and posteriorly. Cardiovascular: Irregularly irregular, slightly tachycardic. No murmurs. Extremities: Venous stasis on both ankles, with small ulcerations on the front of the left ankle not draining anymore and some continued erythema/induration left anterior haque. Feet warm. Leg edema 2+ but improved. Minimal abrasion on left kneecap. Skin: Redness L haque no longer tracking up toward knee Neurological: forgetful and confabulatory, talkative Psychiatric: Normal. Results & Data Results & Data Vital Signs (Past 12 Hours) Vital Signs Temp Pulse Pulse Resp BP Pulse Ox Pulse Ox 12/10/24 15:34 37.0 C 112 H 18 101/59 L 95 12/10/24 15:32 37.0 C 112 H 18 101/59 L 95 12/10/24 14:11 108 H 12/10/24 11:12 36.7 C 117 H 18 89/58 L 97 12/10/24 08:00 36.7 C 122 H 19 93/58 L 95 12/10/24 07:00 115 H 12/10/24 07:00 98 O2 Del Method O2 Del Method 12/10/24 15:34 Room Air 12/10/24 15:32 Room Air 12/10/24 14:11 12/10/24 11:12 Room Air 12/10/24 08:00 Room Air 12/10/24 07:00 12/10/24 07:00 Room Air Laboratory Results 12/09/24 05:42 12/10/24 07:47 urine cultures no growth blood cultures ngtd PG Care Time/CCT Total # of Minutes Spent Total Time Spent with Patient: Total time spent is greater than 50% in coordination of care (as documented) at patient's floor/unit and/or counseling patient: Coding Level of Care Code 42384 SUB INP/OBS CARE MIN Diagnoses Sepsis A41.9 Left leg cellulitis L03.116 Catheter-associated urinary tract infection T83.511A; N39.0 Encounter type: initial encounter Indwelling urinary catheter type: indwelling urethral catheter Atrial fibrillation with RVR I48.91 Diabetes mellitus E11.9 (3) Catheter-associated urinary tract infection Encounter type: initial encounter Indwelling urinary catheter type: i ndwelling urethral catheter Qualified Code(s): T83.511A - Infection and inflammatory reaction due to indwelling urethral catheter, initial encounter; N39.0 - Urinary tract infection, site not specified
[2024-12-11 07:32] LABS: Hematocrit (blood only) 40.7 % (42.0-52.0); Hemoglobin 14.0 g/dl (14.0-18.0); Mean Corpuscular Hemoglobin 30.8 pg (25.0-34.0); Mean Corpuscular Volume 89.6 fL (80.0-100.0); Platelet Count 263 K/uL (130-400); RDW Standard Deviation 47.5 fL (36.4-46.3); Red Blood Count 4.54 M/uL (4.70-6.10); White Blood Count 9.47 K/ul (4.8-10.8)
[2024-12-11 07:52] LABS: Anion Gap 7.0 (3-11); Blood Urea Nitrogen 12.0 mg/dl (6-23); Calcium 8.4 mg/dl (8.6-10.3); Carbon Dioxide 23.0 mmol/L (21-32); Chloride 107.0 mmol/L (98-107); Creatinine Clr Calc Pharmacy 124.8 ml/min; Glucose 130.0 mg/dl (70-99(Fasting)); Potassium 4.1 mmol/L (3.5-5.1); Sodium 137.0 mmol/L (136-145)
[2024-12-11] MEDS: METOPROLOL TARTRATE 25 MG TAB PO ONE (11:37)
--- NOTE | 2024-12-11 18:50 | Hospitalist Progress Note ---
Date of Service December 11, 2024 Assessment & Plan (1) Sepsis: (2) Left leg cellulitis: (3) Catheter-associated urinary tract infection: (4) Atrial fibrillation with RVR: (5) Diabetes mellitus: Plan 74 y/o with chronic foote and venous stasis disease admitted with sepsis due to LLE cellulitis and rapid atrial fibrillation # Sepsis - I think sepsis resolved, still mildly hypotensive and tachycardic. Based on review of old charts he may have some baseline hypotension and we'll try to increase his rate control Sepsis due to left lower extremity cellulitis. CAUTI ruled out - cultures negative, stopped meropenem Cellulitis LLE nearly resolved - complete course of cefazolin/keflex # Atrial fibrillation with rapid ventricular rate Atrial fibrillation with rapid ventricular rate persists though improved. Chronic atrial fibrillation. Treatment plan: metoprolol 12.5 mg x 1 (this was late morning), increase toprol XL to 32.5 mg bid, Continue apixaban 5 mg twice daily for anticoagulation. If ineffective and limited by hypotension, consider digoxin or amiodarone # Diabetes type 2 Diabetes type 2. Recent A1c 6.8% Treatment plan: Hold empagliflozin. Hypoglycemic, stopped glargine, cont premeal aspart 55:18, monitor BG -hypoglycemia resolved, stopped D5 NS -BG well controlled on PRN aspart only # Chronic HFpEF and right heart failure Chronic HFpEF and right heart failure not in exacerbation. Clinical decision making: Not chronically on diuretics. Resumed metoprolol # Coronary artery disease Coronary artery disease. Stable Treatment plan: Continue DAPT with aspirin and clopidogrel. B-windy I'm not sure why he is on both DAPT and apixaban. Had coronary stents but in remote past. Should be able to stop either the aspirin or the plavix # Chronic Foote catheter, BPH Chronic Foote catheter, BPH. Treatment plan: Hold doxazosin due to hypotension, changed urinary catheter 12/09. Appeared to have been partially obstructed # Significant dementia with behavioral disturbance Treatment plan: Continue morning Seroquel and evening risperidone. At high risk of delirium, avoid sedating meds Stable # Sacral decubitus ulcer Sacral decubitus ulcer present on admission. Diagnostic plan: Wound ostomy nurse consulted. Treatment plan: Continue frequent turning and pressure offloading. # Obstructive sleep apnea Obstructive sleep apnea. Treatment plan: Continue CPAP therapy at bedtime. # Venous stasis edema and dermatitis bilateral lower extremities Venous stasis edema and dermatitis bilateral lower extremities. Treatment plan: Continue leg elevation and wound care. # History of DVT Treatment plan: Continue apixaban for prophylaxis. Once heart rate a little better controlled, return to [facility] possible 1-2 days Transferred to med/surg with tele Admission and Anticipated Discharge Date Admission Date: December 08, 2024 Subjective The patient consented to use of [employer], an AI based tool that will listen to our encounter and draft a clinical note based on our conversation. All notes will be reviewed and edited by me before entering them into the medical record. stable overnight, remains mildly hypotensive and tachycardic in atrial fibrillation. WBC normalized to 9000, hemoglobin stable. Potassium 4.1, BUN 12, creatinine 0.6. Good urine output, afebrile. Receiving metoprolol succinate 25 mg b.i.d. No tenderness in previously infected left leg, but notes swelling. No shortness of breath or chest pain. Appetite remains robust. Physical Exam Physical Exam: General Appearance: Normal. Vital signs: Within normal limits. HEENT: Within normal limits. Respiratory: Clear lungs. Cardiovascular: Regular heart rate, no murmur. Gastrointestinal: Soft, nondistended, nontender. Bowel sounds present. Extremities: Warm, well-perfused feet. Left arm shows improvement from IV infiltration, with some redness on radial side of forearm, improved from yesterday. Induration improved. Skin: Minimal drainage from small ulceration on left haque. Pitting edema up to knees. LLE Cellulitis resolved Neurological: Confused/confabulatory and forgetful Psychiatric: Normal. Results & Data Results & Data Vital Signs (Past 12 Hours) Vital Signs Temp Pulse Pulse Resp BP Pulse Ox O2 Del Method 12/11/24 15:11 36.9 C 106 H 18 103/62 97 Room Air 12/11/24 10:54 36.9 C 107 H 19 98/65 L 97 Room Air 12/11/24 07:27 36.9 C 111 H 20 99/67 L 95 Room Air 12/11/24 07:16 117 H Laboratory Results - Labs: - White blood count: 9000 - Hemoglobin: Stable - Potassium: 4.1 - BUN: 12 - Creatinine: 0.6 PG Care Time/CCT Total # of Minutes Spent Total Time Spent with Patient: Total time spent is greater than 50% in coordination of care (as documented) at patient's floor/unit and/or counseling patient: Coding Level of Care Code 29186 SUB INP/OBS CARE MIN Diagnoses Sepsis A41.9 Left leg cellulitis L03.116 Catheter-associated urinary tract infection T83.511A; N39.0 Encounter type: initial encounter Indwelling urinary catheter type: indwelling urethral catheter Atrial fibrillation with RVR I48.91 Diabetes mellitus E11.9 (3) Catheter-associated urinary tract infection Encounter type: initial encounter Indwelling urinary catheter type: indwelling urethral catheter Qualified Code(s): T83.511A - Infection and inflammatory reaction due to indwelling urethral catheter, initial encounter; N39.0 - Urinary tract infection, site not specified
[2024-12-11] MEDS: METOPROLOL SUCC 25MG EXT REL TAB PO SCH (20:14)
--- NOTE | 2024-12-12 07:48 | Hospitalist Progress Note ---
Date of Service December 12, 2024 Assessment & Plan (1) Sepsis: (2) Left leg cellulitis: (3) Catheter-associated urinary tract infection: (4) Atrial fibrillation with RVR: (5) Diabetes mellitus: Plan 74 y/o with chronic foote and venous stasis disease admitted with sepsis due to LLE cellulitis and rapid atrial fibrillation # Sepsis - *Metabolic encephalopathy resolved, Sepsis due to left lower extremity cellulitis. CAUTI ruled out - cultures negative, stopped meropenem Cellulitis LLE nearly resolved - complete course of cefazolin/keflex, also does have some sacral skin breakdown/decubitus present on admission which could be portal of infection also # Atrial fibrillation with rapid ventricular rate Atrial fibrillation with rapid ventricular rate persists though improved. Chronic atrial fibrillation. Treatment plan: metoprolol 12.5 mg x 1 (this was late morning), increase toprol XL to 32.5 mg bid, Continue apixaban 5 mg twice daily for anticoagulation. If ineffective and limited by hypotension, pt was on tikosyn in the past, will consult [facility] cardiology # Diabetes type 2 Diabetes type 2. Recent A1c 6.8% Treatment plan: Hold empagliflozin. Hypoglycemic, stopped glargine, cont premeal aspart 55:18, monitor BG -hypoglycemia resolved, stopped D5 NS -BG well controlled on PRN aspart only # Chronic HFpEF and right heart failure Chronic HFpEF and right heart failure not in exacerbation. Clinical decision making: Not chronically on diuretics. Resumed metoprolol # Coronary artery disease Coronary artery disease. Stable Treatment plan: Continue DAPT with aspirin and clopidogrel. B-windy I'm not sure why he is on both DAPT and apixaban. Had coronary stents but in remote past. Should be able to stop either the aspirin or the plavix # Chronic Foote catheter, BPH Chronic Foote catheter, BPH. Treatment plan: Hold doxazosin due to hypotension, changed urinary catheter 12/09. Appeared to have been partially obstructed # Significant dementia with behavioral disturbance Treatment plan: Continue morning Seroquel and evening risperidone. At high risk of delirium, avoid sedating meds Stable # Sacral decubitus ulcer Sacral decubitus ulcer present on admission. Diagnostic plan: Wound ostomy nurse consulted. Treatment plan: Continue frequent turning and pressure offloading. # Obstructive sleep apnea Obstructive sleep apnea. Treatment plan: Continue CPAP therapy at bedtime. # Venous stasis edema and dermatitis bilateral lower extremities Venous stasis edema and dermatitis bilateral lower extremities. Treatment plan: Continue leg elevation and wound care. # History of DVT Treatment plan: Continue apixaban for prophylaxis. Once heart rate a little better controlled, return to [facility] possible Admission and Anticipated Discharge Date Admission Date: December 08, 2024 Subjective pt is pleasantly confused, no direct complaints still with uncontrolled atrial fibrillation Physical Exam Physical Exam: irregular rapid rhythm lungs clear but diminished ext with trace edema, redness is resolving Results & Data Results & Data Vital Signs (Past 12 Hours) Vital Signs Temp Pulse Pulse Resp BP Pulse Ox O2 Del Method 12/12/24 07:11 98.1 F 110 H 20 105/70 95 Room Air 12/12/24 03:36 97.9 F 112 H 18 100/68 94 Room Air 12/11/24 23:13 98.6 F 116 H 18 91/58 L 95 Room Air 12/11/24 22:56 120 H 12/11/24 20:00 Room Air Laboratory Results reviewed chemistry reviewed poc glucose adequate control PG Care Time/CCT Total # of Minutes Spent Total Time Spent with Patient: Total time spent is greater than 50% in coordination of care (as documented) at patient's floor/unit and/or counseling patient: Coding Level of Care Code 30055 SUB INP/OBS CARE 3/50MIN Diagnoses Sepsis A41.9 Left leg cellulitis L03.116 Catheter-associated urinary tract infection T83.511A; N39.0 Encounter type: initial encounter Indwelling urinary catheter type: indwelling urethral catheter Atrial fibrillation with RVR I48.91 Diabetes mellitus E11.9 (3) Catheter-associated urinary tract infection Encounter type: initial encounter Indwelling urinary catheter type: indwelling urethral catheter Qualified Code(s): T83.511A - Infection and inflammatory reaction due to indwelling urethral catheter, initial encounter; N39.0 - Urinary tract infection, site not specified
[2024-12-12 08:10] LABS: Anion Gap 8.0 (3-11); Blood Urea Nitrogen 12.0 mg/dl (6-23); Calcium 8.7 mg/dl (8.6-10.3); Carbon Dioxide 23.0 mmol/L (21-32); Chloride 107.0 mmol/L (98-107); Creatinine Clr Calc Pharmacy 104.7 ml/min; Glucose 114.0 mg/dl (70-99(Fasting)); Potassium 4.1 mmol/L (3.5-5.1); Sodium 138.0 mmol/L (136-145)
--- NOTE | 2024-12-12 13:13 | Cardiology Consultation ---
Date of Consultation December 12, 2024 Assessment & Plan (1) Fall: (2) Sepsis: (3) Catheter-associated urinary tract infection: (4) Left leg cellulitis: (5) Atrial fibrillation with RVR: (6) CAD (coronary artery disease): (7) Cognitive impairment: Plan Assessment: 74 year old male with advanced cognitive impairment admitted after being found on the floor of his bedroom for unknown duration. initial work up revealed UTI, and left leg cellulitis. Patient has been in A-fib with RVR since admission with lower blood pressures. Cardiology consulted for further assessment and recommendations. 1. Fall 2. Sepsis 3. CAUTI 4. Left lower extremity cellulitis -Patient found at his home on the bedroom floor for unknown duration. Increased confusion; however, difficult to understand degree given his advanced cognitive impairment -ongoing management of sepsis per primary team. 5. Atrial fibrillation with RVR -Known longstanding history of A-fib, likely more persistent since discontinuation of his dofetilide due to an increase in ventricular ectopy. -Obtain resting echocardiogram -Review of telemetry shows A-fib rates 100-125bpm, not unlikely in the setting of sepsis -Pursue a rate control strategy at this time. Continue metoprolol succinate as per current regimen. Will discuss use of IV digoxin in the short term if rates would significantly increase or blood pressures become to low for beta windy use with Dr. Tate. -Continue Eliquis for oral anticoagulation. No bleeding concerns. 6. CAD -prior history of PCI in 1997. -unclear why patient is on triple therapy? Aspirin, Plavix and Eliquis would recommend discontinuation of one of the dual antiplatelet medications to decrease risk for bleeding complications especially given his fall history. -Continue toprol xl, continue Crestor -EKG with no acute ST-T wave changes. -obtain echocardiogram. 7. Cognitive impairment -As per management of primary team -Currently on Risperdone scheduled Case has been discussed with Dr. Tate. Further recommendations regarding plan of care as per his assessment. I spent a total of 50 minutes on the date of service in preparation, delivery, documentation of the care provided to the patient excluding any time spent in the performance of separately billed services. DIO Quispe [facility] Cardiology [facility] Supervising Physician Co-Signing Physician Notes Patient seen and examined. Past medical history, surgical history, social history and family history have been reviewed. The medical record and all the above studies have been reviewed. Case DW MARCIAL including management. Sepsis Atrial fibrillation with RVR - likely exacerbated by sepsis Left lower extremity cellulitis CAD s/p PCI Dementia s/p fall IVF Abx as indicated DC ASA metoprolol to be adjusted for HR between 60 to 100 BPM keeping systolic BP between 100-140 mmHg may use Digoxin for rate control keep K between 4 and 4.5 and Mg between 2 and 2.5 when on Digoxin Continue Plavix and Eliquis correct and f/u electrolytes f/u renal function avoid hypovolemia keep patient euvolemic strict I&Os History of Present Illness Reason for Consultation: A-fib with RVR Requesting Physician: VINNY hospitalist Attending Physician: Isma Kate MD History of Present Illness HPI: patient is a 74 year old male with PMHx as outlined below that presented to the ER after being found on his bedroom floor presumably fell out of bed onto the floor. Length of time on the floor unknown. Patient has no memory of the incident. patient was ultimately admitted for Sepsis s/t CAUTI and/or left lower extremity cellulitis. EKG obtained upon admission (12/08/24) shows Atrial fibrillation with RVR. Rate 128bpm. QTC 499. Problem List: 1. Paroxysmal atrial fibrillation for which the patient was on a rhythm control strategy with dofetilide. This was discontinued 01/[address] Chi due to concerns of increasing ventricular ectopy. Coumadin for stroke prophylaxis--as per records dating 01/2023--since transitioned to Eliquis for improved compliance 2. Chronic diastolic heart failure 3. Coronary heart disease, remote inferior wall myocardial infarction with PCI to the RCA 1997, bare metal stent. No anginal symptoms 4. Nonischemic dobutamine stress echocardiogram, 2013 5. Dyslipidemia 6. Hypertension 7. Cognitive impairment Patient has been lost to follow up with [facility] Cardiology [facility] . At the time of that appointment, Dr. Chi had noted that there had been a significant cognitive decline and great concern with regards to medicatoin compliance. He underwent a Stat head CT which was negative for acute pathology; however, demonstrated small vessel disease consistent with his cognitive impairment. He was recommended to undergo an MRI but refused reporting that "the doctor does not have my best interest in mind". He has not followed up since. upon seeing patient he is resting comfortably in bed without complaint. Unable to obtain a accurate ROS due to cognitive impairment. Patient did tell me that he has no idea where he is or why, but is pleasant and cooperative at time of exam. Denies chest pain, pressure, palpitations, or shortness of breath. Review of telemetry shows Atrial fibrillation 100-125bpm. No acute events overnight. Occasional PVC's Allergies Allergy/AdvReac Type Severity Reaction Status Date / Time NBA Inhibitors AdvReac Unknown to be Verified 06/12/24 13:22 avoided per S EMR ARB-Angiotensin Receptor AdvReac Unknown to be Verified 06/12/24 12:34 Antagonist avoided per [facility] EMR Home Medications Medication Instructions Recorded Confirmed Type aspirin 81 mg tablet,delayed 81 mg PO QAM 05/18/18 12/08/24 History release folic acid 1 mg tablet 1 mg PO BID 05/18/18 12/08/24 History rosuvastatin 20 mg tablet 20 mg PO HS 05/18/18 12/08/24 History cholecalciferol (vitamin D3) 50 50 mcg PO QAM 09/04/19 12/08/24 History mcg (2,000 unit) capsule (Vitamin D3) pantoprazole 40 mg tablet,delayed 40 mg PO QAM 02/18/23 12/08/24 History release melatonin 3 mg disintegrating 3 mg PO HS 03/26/23 12/08/24 History tablet multivitamin (Daily-Lala tablet) 1 tab PO QAM 03/26/23 12/08/24 History potassium chloride 10 mEq 10 meq PO TID 03/26/23 12/08/24 History tablet,extended release(part/cryst) clopidogrel 75 mg tablet 75 mg PO QAM 10/22/23 12/08/24 History nystatin 100,000 unit/gram topical 1 applic topical BID 10/22/23 12/08/24 History cream quetiapine 25 mg tablet (Seroquel) 25 mg PO QAM 05/17/24 12/08/24 History sennosides 8.6 mg-docusate sodium 1 tab-cap PO DAILY PRN Constipation 05/20/24 12/08/24 History 50 mg tablet (Senna with Docusate Sodium) apixaban 5 mg tablet (Eliquis) 5 mg PO BID 10/18/24 12/08/24 History insulin glargine 100 unit/mL (3 7 unit subcut HS 10/18/24 12/08/24 History mL) subcutaneous pen (Lantus Solostar U-100 Insulin) metoprolol succinate 25 mg 25 mg PO BID 10/18/24 12/08/24 History tablet,extended release 24 hr loperamide 2 mg tablet 2 mg PO Q6H PRN Diarrhea 10/30/24 12/08/24 History acetaminophen 325 mg tablet 650 mg PO TID PRN Pain 12/08/24 12/08/24 History doxazosin 1 mg tablet 1 mg PO HS 12/08/24 12/08/24 History empagliflozin 25 mg tablet 25 mg PO DAILY 12/08/24 12/08/24 History (Jardiance) lorazepam 0.5 mg tablet 0.5 mg PO ONCE PRN CATHETER CHANGE 12/08/24 12/08/24 History risperidone 0.5 mg tablet 0.5 mg PO HS 12/08/24 12/08/24 History Patient History Medical History History of pyelonephritis (~05/26/24) UTI/pyelonephritis/sepsis/delirium-hospitalized at [facility] 05/20- Carotid artery stenosis < 50% stenosis on 01/2023 carotid doppler On anticoagulant therapy History of cardioversion Cellulitis of groin scrotal cellulitis/SIRS hospitalization at [facility] 05/29- Weakness Acute alteration in mental status L5 vertebral fracture Lymphedema Sacral wound ongoing long-term resident [facility] Indwelling Estevez catheter present Hypotension Chronic venous insufficiency Dementia DVT (deep venous thrombosis) (~05/20/24) Diastolic heart failure CAD (coronary artery disease) s/p BMS to RCA in 1997 IBS (irritable bowel syndrome) Chronic obstructive pulmonary disease group C per [facility] EMR Sleep apnea denies currently using CPAP Osteoarthritis Diabetes mellitus, type 2 Hearing deficit [place] Hyperlipidemia Atrial fibrillation lost to f/u with [facility] cardiology Pilonidal cyst Depression Obesity Anemia Migraines Myocardial infarction 1997 Chronic GERD controlled, stable per pt Surgical History History of heart artery stent 1997 - [place] - 1 stent placed - hospital in [place], [place] reports had another cath early in [place] - no stents/angioplasty History of cataract surgery right and left History of total hip arthroplasty RT History of total shoulder replacement BL History of esophagogastroduodenoscopy (EGD) H/O colonoscopy Hx laparoscopic cholecystectomy Family History Brother Family history of diabetes mellitus X2 Social History Smoking Status: Never smoker Tobacco Type: Cigarettes Second Hand Exposure: No; Do You Dip or Chew Tobacco: No; Hx Alcohol Use: No Hx Substance Use: No Preferred Language: Danish Communication Ability: Impaired Mastic Man Required: No Beliefs That Will Affect Care: None Current Living Situation: Personal Care Facility Feels Safe at Home: Yes Assistive Devices: Glasses, Walker and Wheelchair Review of Systems Review of Systems: All systems reviewed & are unremarkable except as noted in HPI & below Physical Exam Constitutional: well developed and + obese Neck: normal visual inspection and trachea midline Respiratory: normal respiratory effort, lungs clear to auscultation Cardiovascular: Rate/Rhythm: + tachycardic and + irregularly irregular Heart Sounds: normal S1 and normal S2 Vessels: dorsalis pedis pulses present; no JVD Extremities: + edema (left greater than right with active cellulitis) Skin: + wound (left lower extremity erythema, left arm dsg with unknown wou nd/skin tear) Psychiatric: Orientation: alert and cooperative; + not oriented x 3 cognitive impairment s/t dementia Results & Data Vital Signs (Past 12 Hours) Vital Signs Temp Pulse Pulse Resp BP BP Pulse Ox 12/12/24 11:36 36.6 C 118 H 20 100/66 96 12/12/24 10:40 113 H 12/12/24 10:40 12/12/24 10:26 36.6 C 133 H 20 97/62 L 95 12/12/24 07:11 36.7 C 110 H 20 105/70 95 12/12/24 07:00 12/12/24 03:36 36.6 C 112 H 18 100/68 94 O2 Del Method O2 Del Method 12/12/24 11:36 Room Air 12/12/24 10:40 12/12/24 10:40 Room Air 12/12/24 10:26 Room Air 12/12/24 07:11 Room Air 12/12/24 07:00 Room Air 12/12/24 03:36 Room Air Laboratory Results Comprehensive Metabolic Panel 12/12/24 Range/Units 07:20 Sodium 138 (136-145) mmol/L Potassium 4.1 (3.5-5.1) mmol/L Chloride 107 (98-107) mmol/L Carbon Dioxide 23 (21-32) mmol/L BUN 12 (6-23) mg/dl Creatinine 0.72 (0.6-1.4) mg/dl Glucose 114 H (70-99(Fasting)) mg/dl Calcium 8.7 (8.6-10.3) mg/dl Intake and Output 12/11/24 12/12/24 12/12/24 22:59 06:59 14:59 Intake Total 300 / 1633.33 200 / 1633.33 640 / 640 Output Total 2800 / 5950 1950 / 5950 400 / 400 Balance -2500 / -4316.67 -1750 / -4316.67 240 / 240 Intake: Oral 300 / 500 200 / 500 640 / 640 Output: Urine Amount (Catheter) 2800 / 5950 1950 / 5950 400 / 400 Estevez/Indwelling 2800 / 5950 1950 / 5950 400 / 400 Other: Weight 106.2 kg Weight Measurement Method Built in [facility] Diagnostic Findings ZIO 12/07/2022 CONCLUSIONS: Preliminary Findings Prepared by Zeeshan Gallo, [place] 01/05/23 Duration: 14 days ranging from 12/07/2022 until 12/21/2022. After artifact was removed 13 days and 16 hours of data available for review. Patient had a min HR of 49 bpm, max HR of 203 bpm, and avg HR of 75 bpm. Predominant underlying rhythm was Sinus Rhythm. 109 Ventricular Tachycardia runs occurred, the run with the fastest interval lasting 4 beats with a max rate of 203 bpm, the longest lasting 15 beats with an avg rate of 121 bpm. 61 Supraventricular Tachycardia runs occurred, the run with the fastest interval lasting 11.2 secs with a max rate of 182 bpm, the longest lasting 13.0 secs with an avg rate of 129 bpm. Ventricular Tachycardia was detected within +/- 45 seconds of symptomatic patient event(s). Isolated SVEs were rare (<1.0%), SVE Couplets were rare (<1.0%), and SVE Triplets were rare (<1.0%). Isolated VEs were frequent (10.3%, [id number]), VE Couplets were rare (<1.0%, 2737), and VE Triplets were rare (<1.0%, 416). Ventricular Bigeminy and Trigeminy were present. Seven patient triggered events were submitted for review. Patient triggered events correlated with sinus rhythm with premature ventricular contractions, and a 5 beat run of nonsustained ventricular tachycardia. Frequent premature ventricular contractions were observed, 10.3% PVC burden. No atrial fibrillation was observed. PG Care Time/CCT Total # of Minutes Spent Total Time Spent with Patient: Total time spent is greater than 50% in coordination of care (as documented) at patient's floor/unit and/or counseling patient: [place] [address] IN/OBS CONSULT LVL 5,80M Patient Type New Diagnoses Fall W19.XXXA Encounter type: initial encounter Sepsis A41.9; R65.20; G93.41 Sepsis acute organ dysfunction status: with acute organ dysfunction Sepsis type: sepsis due to unspecified organism Severe sepsis acute organ dysfunction type: encephalopathy Severe sepsis shock status: without septic shock Catheter-associated urinary tract infection T83.511A; N39.0 Encounter type: initial encounter Indwelling urinary catheter type: indwelling urethral catheter Left leg cellulitis L03.116 Atrial fibrillation with RVR I48.91 CAD (coronary artery disease) I25.10 Cognitive impairment R41.89 Time Spent (min) 50 (1) Fall Encounter type: initial encounter Qualified Code(s): W19.XXXA - Unspecified fall, initial encounter (2) Sepsis Sepsis acute organ dysfunction status: with acute organ dysfunction Sepsis type: sepsis due to unspecified organism Severe sepsis acute organ dysfunction type: encephalopathy Severe sepsis shock status: without septic shock Qualified Code(s): A41.9 - Sepsis, unspecified organism; R65.20 - Severe sepsis without septic shock; G93.41 - Metabolic encephalopathy (3) Catheter-associated urinary tract infection Encounter type: initial encounter Indwelling urinary catheter type: indwelling urethral catheter Qualified Code(s): T83.511A - Infection and inflammatory reaction due to indwelling urethral catheter, initial encounter; N39.0 - Urinary tract infection, site not specified
[2024-12-12] MEDS: DIGOXIN 250 MCG in SYRINGE 9 ML IV STA (18:28)
[2024-12-13] MEDS: DIGOXIN 250 MCG in SYRINGE 9 ML IV ONE ×2 (10:00→18:13)
--- NOTE | 2024-12-13 16:00 | Hospitalist Progress Note ---
Date of Service December 13, 2024 Assessment & Plan (1) Sepsis: (2) Left leg cellulitis: (3) Catheter-associated urinary tract infection: (4) Atrial fibrillation with RVR: (5) Diabetes mellitus: Plan 74 y/o with chronic foote and venous stasis disease admitted with sepsis due to LLE cellulitis and rapid atrial fibrillation. Sepsis causing metabolic encephalopathy that has worsened baseline dementia # Sepsis - resolved, Sepsis due to left lower extremity cellulitis. CAUTI ruled out - cultures negative, stopped meropenem Cellulitis LLE nearly resolved - complete course of cefazolin/keflex, also does have some sacral skin breakdown/decubitus present on admission which could be portal of infection also # Atrial fibrillation with rapid ventricular rate. Chronic atrial fibrillation. Atrial fibrillation with rapid ventricular rate persists though improved. increased toprol XL to 32.5 mg bid, Continue apixaban 5 mg twice daily for anticoagulation. Cardiologu has loaded with Digoxin 0.5 and started 0.125 mg daily with level check in am 12/14 # Diabetes type 2 Diabetes type 2. Recent A1c 6.8% Treatment plan: Hold empagliflozin. Hypoglycemic, stopped glargine, cont premeal aspart 55:18, monitor BG -hypoglycemia resolved, stopped D5 NS -BG well controlled on PRN aspart only # Chronic HFpEF and right heart failure Chronic HFpEF and right heart failure not in exacerbation. Clinical decision making: Not chronically on diuretics. Resumed metoprolol # Coronary artery disease Coronary artery disease. Stable Treatment plan: Continue DAPT with aspirin and clopidogrel. B-windy I'm not sure why he is on both DAPT and apixaban. Had coronary stents but in remote past. Should be able to stop either the aspirin or the plavix # Chronic Foote catheter, BPH Chronic Foote catheter, BPH. Treatment plan: Hold doxazosin due to hypotension, changed urinary catheter 1 0. Appeared to have been partially obstructed # Significant dementia with behavioral disturbance Pt has been more aggressive, Continue morning Seroquel and evening risperidone. At high risk of continued delirium # Sacral decubitus ulcer Sacral decubitus ulcer present on admission. Diagnostic plan: Wound ostomy nurse consulted. Treatment plan: Continue frequent turning and pressure offloading. # Obstructive sleep apnea Obstructive sleep apnea. Treatment plan: Continue CPAP therapy at bedtime. # Venous stasis edema and dermatitis bilateral lower extremities Venous stasis edema and dermatitis bilateral lower extremities. Treatment plan: Continue leg elevation and wound care. # History of DVT Treatment plan: Continue apixaban for prophylaxis. Once heart rate a little better controlled, return to [facility] possible Admission and Anticipated Discharge Date Admission Date: December 08, 2024 Subjective pt is confused, at times disagreeing with nursing, almost fighting , refused Echo no direct complaints still with uncontrolled atrial fibrillation but cardiology did load with digoxin and started po Physical Exam Physical Exam: irregular rapid rhythm lungs clear but diminished ext with trace edema, redness is resolving pt more angry today but still confused with baseline dementia Results & Data Results & Data Vital Signs (Past 12 Hours) Vital Signs Temp Pulse Pulse Resp BP Pulse Ox O2 Del Method 12/13/24 15:47 97.5 F L 110 H 23 111/71 98 Room Air 12/13/24 12:14 Room Air 12/13/24 11:28 97.7 F 99 H 23 112/73 96 Room Air 12/13/24 10:00 112 H 12/13/24 08:05 97.7 F 108 H 23 106/75 95 Room Air Laboratory Results Ordered chemistry and digoxin lab for 12/14/2024 PG Care Time/CCT Total # of Minutes Spent Total Time Spent with Patient: Total time spent is greater than 50% in coordination of care (as documented) at patient's floor/unit and/or counseling patient: Coding Level of Care Code 42765 SUB INP/OBS CARE 3/50MIN Diagnoses Sepsis A41.9 Left leg cellulitis L03.116 Catheter-associated urinary tract infection T83.511A; N39.0 Encounter type: initial encounter Indwelling urinary catheter type: indwelling urethral catheter Atrial fibrillation with RVR I48.91 Diabetes mellitus E11.9 (3) Catheter-associated urinary tract infection Encounter type: initial encounter Indwelling urinary catheter type: indwelling urethral catheter Qualified Code(s): T83.511A - Infection and inflammatory reaction due to indwelling urethral catheter, initial encounter; N39.0 - Urinary tract infection, site not specified
--- NOTE | 2024-12-13 17:27 | Cardiology Progress Note ---
Date of Service December 13, 2024 Assessment & Plan (1) Fall: (2) Sepsis: (3) Catheter-associated urinary tract infection: (4) Left leg cellulitis: (5) Atrial fibrillation with RVR: (6) CAD (coronary artery disease): (7) Cognitive impairment: Plan Assessment: 74 year old male with advanced cognitive impairment admitted after being found on the floor of his bedroom for unknown duration. initial work up revealed UTI, and left leg cellulitis. Patient has been in A-fib with RVR since admission with lower blood pressures. Cardiology consulted for further assessment and recommendations. Sepsis Atrial fibrillation with RVR - likely exacerbated by sepsis Left lower extremity cellulitis CAD s/p PCI Dementia s/p fall IVF Abx as indicated metoprolol adjust dose for HR between 60 to 100 BPM keeping systolic BP between 100-140 mmHg Digoxin for rate control keep K between 4 and 4.5 and Mg between 2 and 2.5 when on Digoxin Continue Plavix and Eliquis correct and f/u electrolytes f/u renal function avoid hypovolemia keep patient euvolemic strict I&Os Admission and Anticipated Discharge Date Admission Date: December 08, 2024 Subjective Patient on exam is lying in bed in NAD; confused, uncooperative / refused Echo breathing is stable Review of Systems Review of Systems: Unobtainable due to cognitive status Physical Exam Constitutional: + obese Neck: normal visual inspection and trachea midline Respiratory: normal respiratory effort, lungs clear to auscultation Cardiovascular: Rate/Rhythm: + tachycardic and + irregularly irregular Heart Sounds: normal S1 and normal S2 Extremities: + edema (left greater than right with active cellulitis) Psychiatric: Orientation: + not oriented x 3 Results & Data Vital Signs (Past 12 Hours) Vital Signs Temp Pulse Pulse Resp BP Pulse Ox O2 Del Method 12/13/24 15:47 36.4 C L 110 H 23 111/71 98 Room Air 12/13/24 12:14 Room Air 12/13/24 11:28 36.5 C 99 H 23 112/73 96 Room Air 12/13/24 10:00 112 H 12/13/24 08:05 36.5 C 108 H 23 106/75 95 Room Air Laboratory Results Laboratory Results - last 48 hr 12/11/24 12/12/24 12/12/24 20:23 07:20 07:33 Sodium 138 Potassium 4.1 Chloride 107 Carbon Dioxide 23 Anion Gap 8 BUN 12 Creatinine 0.72 Est Cr Clr Drug Dosing 104.7 eGFR 95.28 BUN/Creatinine Ratio 16.7 Glucose 114 H POC Glucose 133 H 106 H Calcium 8.7 12/12/24 12/12/24 12/12/24 11:33 16:08 16:44 Sodium Potassium Chloride Carbon Dioxide Anion Gap BUN Creatinine Est Cr Clr Drug Dosing eGFR BUN/Creatinine Ratio Glucose POC Glucose 149 H 109 H 113 H Calcium 12/12/24 12/13/24 12/13/24 20:33 07:30 11:16 Sodium Potassium Chloride Carbon Dioxide Anion Gap BUN Creatinine Est Cr Clr Drug Dosing eGFR BUN/Creatinine Ratio Glucose POC Glucose 120 H 106 H 148 H Calcium 12/13/24 16:18 Sodium Potassium Chloride Carbon Dioxide Anion Gap BUN Creatinine Est Cr Clr Drug Dosing eGFR BUN/Creatinine Ratio Glucose POC Glucose 138 H Calcium Diagnostic Findings Laboratory Results WBC 9.47 K/ul (4.8-10.8) 12/11/24 06:30 RBC 4.54 M/uL (4.70-6.10) L 12/11/24 06:30 Hgb 14.0 g/dl (14.0-18.0) 12/11/24 06:30 Hct 40.7 % (42.0-52.0) L 12/11/24 06:30 MCV 89.6 fL (80.0-100.0) 12/11/24 06:30 MCH 30.8 pg (25.0-34.0) 12/11/24 06:30 MCHC 34.4 g/dL (32.0-36.0) 12/11/24 06:30 RDW Std Deviation 47.5 fL (36.4-46.3) H 12/11/24 06:30 RDW Coeff of [place] 14.5 % (11.5-14.5) 12/11/24 06:30 Plt Count 263 K/uL (130-400) 12/11/24 06:30 MPV 9.7 fL (9.4-12.4) 12/11/24 06:30 Immature Gran % (Auto) 1.1 % 12/08/24 08:58 Neut % (Auto) 82.1 % 12/08/24 08:58 Lymph % (Auto) 7.5 % 12/08/24 08:58 [place] % (Auto) 7.5 % 12/08/24 08:58 Eos % (Auto) 1.1 % 12/08/24 08:58 Baso % (Auto) 0.7 % 12/08/24 08:58 Neut # (Auto) 11.16 K/uL (1.40-6.50) H 12/08/24 08:58 Lymph # (Auto) 1.02 K/uL (1.20-3.40) L 12/08/24 08:58 [place] # (Auto) 1.02 K/uL (0.11-0.59) H 12/08/24 08:58 Eos # (Auto) 0.15 K/uL (0.00-0.50) 12/08/24 08:58 Baso # (Auto) 0.09 K/uL (0.00-0.20) 12/08/24 08:58 Immature Gran # (Auto) 0.15 K/uL (0.01-0.20) 12/08/24 08:58 Sodium 138 mmol/L (136-145) 12/12/24 07:20 Potassium 4.1 mmol/L (3.5-5.1) 12/12/24 07:20 Chloride 107 mmol/L (98-107) 12/12/24 07:20 Carbon Dioxide 23 mmol/L (21-32) 12/12/24 07:20 Anion Gap 8 (3-11) 12/12/24 07:20 BUN 12 mg/dl (6-23) 12/12/24 07:20 Creatinine 0.72 mg/dl (0.6-1.4) 12/12/24 07:20 Est Cr Clr Drug Dosing 104.7 ml/min 12/12/24 07:20 eGFR 95.28 12/12/24 07:20 BUN/Creatinine Ratio 16.7 (10-20) 12/12/24 07:20 Glucose 114 mg/dl (70-99(Fasting)) H 12/12/24 07:20 POC Glucose 138 mg/dl (70-99) H 12/13/24 16:18 Lactate 1.7 mmol/L (0.4-2.0) 12/08/24 09:11 Calcium 8.7 mg/dl (8.6-10.3) 12/12/24 07:20 Magnesium 1.8 mg/dl (1.7-2.4) 12/09/24 05:42 Total Creatine Kinase 114 U/L (30-223) 12/08/24 08:58 Troponin I High Sens 4.9 pg/ml (0-20) 12/08/24 08:58 Urine Color [place] 12/09/24 14:50 Urine Appearance Clear (Clear) 12/09/24 14:50 Urine pH 7.0 (4.5-7.5) 12/09/24 14:50 Ur Specific [place] 1.010 (1.000-1.030) 12/09/24 14:50 Urine Protein Negative (Negative) 12/09/24 14:50 Urine Glucose (UA) 2+ (Negative) H 12/09/24 14:50 Urine Ketones Trace (Negative) H 12/09/24 14:50 Urine Blood 3+ (Negative) H 12/09/24 14:50 Urine Nitrite Negative (Negative) 12/09/24 14:50 Urine Bilirubin Negative (Negative) 12/09/24 14:50 Urine Urobilinogen Negative (Negative) 12/09/24 14:50 Ur Leukocyte Esterase 3+ (Negative) H 12/09/24 14:50 Urine WBC (Auto) >50 /hpf (0-5) H 12/09/24 14:50 Urine RBC (Auto) >20 /hpf (0-2) H 12/09/24 14:50 U Hyaline Cast (Auto) 0-2 /lpf (0-2) 12/09/24 14:50 U Epithel Cells (Auto) 0-2 /hpf (0-2) 12/09/24 14:50 Urine Bacteria (Auto) None Seen (None Seen) 12/09/24 14:50 Urine Comment 12/09/24 14:50 Nasal Screen MRSA (PCR) Positive (Negative) A 12/08/24 16:[address] 12/08/24 07:40 Clinical history: Injury Technique: Axial computed tomography images were obtained of the cervical spine without intravenous contrast. Sagittal and coronal reconstructions were obtained Findings: No fracture is identified. There is 2 mm of anterolisthesis of C3 on C4. No focal osseous lesion is evident. There is atlantoaxial osteoarthritis At C2-3, there is spinal stenosis due to a disc bulge and a right paracentral disc herniation. There is mild bilateral neural foramen narrowing At C3-4, there is spinal stenosis due to a disc bulge and a central disc protrusion. There is bilateral neural foramen narrowing that may affect the exiting C4 nerve roots At C4-5, there is mild spinal stenosis due to a disc bulge and a central disc protrusion. There is left neural foramen narrowing that may affect the left C5 nerve root At C5-6, there is spinal stenosis due to a disc bulge and a central to right paracentral disc osteophyte protrusion. There is bilateral neural foramen narrowing that may affect the exiting C6 nerve roots At C6-7, there is a disc bulge without spinal stenosis. There is left greater than right neural foramen narrowing that may affect the left C7 nerve root At C7-T1, there is a disc bulge without spinal stenosis. The neural foramen are patent The lung apices appear clear. The visualized soft tissues of the neck appear unremarkable. No foreign body is seen Impression: 1. No definite cervical spine fracture 2. Mild anterolisthesis at C3-4, which may be degenerative 3. Spinal stenosis from C2-3 through C5-6 4. Bilateral C3-4, left C4-5, bilateral C5-6, and left C6-7 neural foramen narrowing. This may affect the exiting nerve roots ACT 112: Positive. There are findings on this exam that require communication between the performing entity and the patient following Patient Test Result Information Act ([place] ACT 112) guidelines. Electronically signed by Seymour Acosta 12-08-2024 09:12 AM Chest X-Ray 12/08/24 07:40 Technique: 2 frontal views of the chest were obtained Comparison is made to the prior examination dated 10/30/2024 Findings: There are no confluent pulmonary infiltrates. The heart size is within normal limits. No pleural effusion or pneumothorax is seen. There is no definite pulmonary nodule. No fracture is noted. There is thoracic degenerative disc disease. There are bilateral shoulder arthroplasties Impression: No active disease Electronically signed by Seymour Acosta 12-08-2024 08:38 AM Femur X-Ray 12/08/24 07:40 4 views of the left femur are submitted for review. Findings: No fracture or dislocation is seen. There is severe left hip osteoarthritis. No other osseous abnormality is identified. There are no radiopaque foreign bodies. Impression: Severe left hip osteoarthritis Electronically signed by Seymour Acosta 12-08-2024 08:[address] 12/08/24 07:40 Clinical History: Injury Technique: Axial computed tomography images were obtained of the brain without intravenous contrast. Findings: There is diffuse cerebral atrophy, within expected limits for the patient's age. Areas of decreased attenuation are seen within the periventricular white matter, likely representing chronic small vessel ischemic disease. There is no definite sign of acute or old infarction. No intracranial hemorrhage is evident. No definite mass lesion is seen on this noncontrast examination. There is no midline shift or other form of herniation. No hydrocephalus is seen. No fracture is identified. The orbits and the visualized paranasal sinuses appear unremarkable. The mastoid air cells appear clear. Impression: 1. Cerebral atrophy and chronic small vessel ischemic disease 2. Otherwise unremarkable noncontrast CT of the brain Electronically signed by Seymour Acosta 12-08-2024 09:25 AM Pelvis X-Ray 12/08/24 07:40 2 views of the pelvis are submitted for review. Findings: No fracture is seen. There is a right hip total arthroplasty in expected position. There is severe left hip osteoarthritis. No other osseous abnormality is identified. There are no radiopaque foreign bodies. Impression: 1. Right hip replacement 2. Severe left hip osteoarthritis Electronically signed by Seymour Acosta 12-08-2024 08:42 AM Medications Administered Home Medications Medication Instructions Recorded Confirmed Last Taken aspirin 81 mg tablet,delayed 81 mg PO QAM 05/18/18 12/08/24 05/29/24 release folic acid 1 mg tablet 1 mg PO BID 05/18/18 12/08/24 05/29/24 rosuvastatin 20 mg tablet 20 mg PO HS 05/18/18 12/08/24 05/29/24 cholecalciferol (vitamin D3) 50 50 mcg PO QAM 09/04/19 12/08/24 05/29/24 mcg (2,000 unit) capsule (Vitamin D3) pantoprazole 40 mg tablet,delayed 40 mg PO QAM 02/18/23 12/08/24 05/29/24 release melatonin 3 mg disintegrating 3 mg PO 03/26/23 12/08/24 05/29/24 tablet multivitamin (Daily-Lala tablet) 1 tab PO QAM 03/26/23 12/08/24 05/29/24 potassium chloride 10 mEq 10 meq PO TID 03/26/23 12/08/24 05/29/24 tablet,extended release(part/cryst) clopidogrel 75 mg tablet 75 mg PO QAM 10/22/23 12/08/24 05/29/24 nystatin 100,000 unit/gram topical 1 applic topical BID 10/22/23 12/08/24 05/29/24 cream quetiapine 25 mg tablet (Seroquel) 25 mg PO QAM 05/17/24 12/08/24 05/29/24 sennosides 8.6 mg-docusate sodium 1 tab-cap PO DAILY PRN Constipation 05/20/24 12/08/24 Unknown 50 mg tablet (Senna with Docusate Sodium) apixaban 5 mg tablet (Eliquis) 5 mg PO BID 10/18/24 12/08/24 Unknown insulin glargine 100 unit/mL (3 7 unit subcut HS 10/18/24 12/08/24 Unknown mL) subcutaneous pen (Lantus Solostar U-100 Insulin) metoprolol succinate 25 mg 25 mg PO BID 10/18/24 12/08/24 Unknown tablet,extended release 24 hr loperamide 2 mg tablet 2 mg PO Q6H PRN Diarrhea 10/30/24 12/08/24 Unknown acetaminophen 325 mg tablet 650 mg PO TID PRN Pain 12/08/24 12/08/24 Unknown doxazosin 1 mg tablet 1 mg PO HS 12/08/24 12/08/24 Unknown empagliflozin 25 mg tablet 25 mg PO DAILY 12/08/24 12/08/24 Unknown (Jardiance) lorazepam 0.5 mg tablet 0.5 mg PO ONCE PRN CATHETER CHANGE 12/08/24 12/08/24 Unknown risperidone 0.5 mg tablet 0.5 mg PO HS 12/08/24 12/08/24 Unknown Active Medications Generic Name Dose Route Start Last Admin Trade Name Freq PRN Reason Stop Dose Admin Acetaminophen 650 mg 12/08/24 15:22 12/09/24 08:27 Acetaminophen 325 Mg Tab PO 01/07/25 15:21 650 mg Q4H PRN Administration Pain or Fever Apixaban 5 mg 12/08/24 21:00 12/13/24 10:04 Apixaban 5 Mg Tablet PO 01/07/25 20:59 5 mg BID STEPHANIE Administration Clopidogrel Bisulfate 75 mg 12/09/24 09:00 12/13/24 10:03 Clopidogrel Bisulfate 75 Mg Tab PO 01/08/25 08:59 75 mg QAM STEPHANIE Administration Cefazolin Sodium 2,000 mg in 15 mls @ 3.75 mls/min 12/11/24 00:00 12/13/24 17:16 Ancef 2000mg IV 12/18/24 00:00 3.75 mls/min Q8H STEPHANIE Administration Insulin Aspart 0 units 12/08/24 16:30 12/13/24 17:10 Insulin Aspart Per Unit Charge SC 01/07/25 16:29 Not Given ACHS STEPHANIE Insulin Glargine 7 units 12/08/24 21:00 12/09/24 21:34 Lantus Per Unit Charge SC 01/07/25 20:59 7 units HS STEPHANIE Administration Melatonin 3 mg 12/08/24 21:00 12/12/24 20:07 Melatonin 3 Mg Tab PO 01/07/25 20:59 3 mg HS STEPHANIE Administration Metoprolol Succinate 37.5 mg 12/11/24 21:00 12/13/24 10:02 Metoprolol Succ 25mg Ext Rel Tab PO 01/10/25 20:59 37.5 mg BID STEPHANIE Administration Miscellaneous 15 - 30 gm 12/08/24 15:22 12/10/24 08:00 Carbohydrates For Hypoglycemia PO 01/07/25 15:21 15 gm UD PRN Administration Hypoglycemia Protocol Nystatin 1 appln 12/08/24 21:00 12/13/24 10:04 Nystatin Cr 15 Gm Tube EXT 01/07/25 20:59 1 appln BID STEPHANIE Administration Pantoprazole Sodium 40 mg 12/09/24 09:00 12/13/24 10:04 Pantoprazole 40 Mg Tab PO 01/08/25 08:59 40 mg QAM STEPHANIE Administration Potassium Chloride 10 meq 12/08/24 15:45 12/13/24 17:16 Potassium Chloride 10 Meq Tabcr PO 01/07/25 15:44 10 meq TID STEPHANIE Administration Quetiapine Fumarate 25 mg 12/09/24 09:00 12/13/24 10:03 Quetiapine Fumarate 25 Mg Tablet PO 01/08/25 08:59 25 mg QAM STEPHANIE Administration Risperidone 0.5 mg 12/08/24 21:00 12/12/24 20:10 Risperidone 0.5 Mg Tablet PO 01/07/25 20:59 0.5 mg HS STEPHANIE Administration Rosuvastatin Calcium 20 mg 12/08/24 21:00 12/12/24 20:10 Rosuvastatin Calcium 20 Mg Tab PO 01/07/25 20:59 20 mg HS STEPHANIE Administration PG Care Time/CCT Total # of Minutes Spent Total Time Spent with Patient: Total time spent is greater than 50% in coordination of care (as documented) at patient's floor/unit and/or counseling patient: Coding Level of Care Code 39644 SUB INP/OBS CARE 3/50MIN Diagnoses Fall W19.XXXA Encounter type: initial encounter Sepsis A41.9; R65.20; G93.41 Sepsis acute organ dysfunction status: with acute organ dysfunction Sepsis type: sepsis due to unspecified organism Severe sepsis acute organ dysfunction type: encephalopathy Severe sepsis shock status: without septic shock Catheter-associated urinary tract infection T83.511A; N39.0 Encounter type: initial encounter Indwelling urinary catheter type: indwelling urethral catheter Left leg cellulitis L03.116 Atrial fibrillation with RVR I48.91 CAD (coronary artery disease) I25.10 Cognitive impairment R41.89 (1) Fall Encounter type: initial encounter Qualified Code(s): W19.XXXA - Unspecified fall, initial encounter (2) Sepsis Sepsis acute organ dysfunction status: with acute organ dysfunction Sepsis type: sepsis due to unspecified organism Severe sepsis acute organ dysfunction type: encephalopathy Severe sepsis shock status: without septic shock Qualified Code(s): A41.9 - Sepsis, unspecified organism; R65.20 - Severe sepsis without septic shock; G93.41 - Metabolic encephalopathy (3) Catheter-associated urinary tract infection Encounter type: initial encounter Indwelling urinary catheter type: indwelling urethral catheter Qualified Code(s): T83.511A - Infection and inflammatory reaction due to indwelling urethral catheter, initial encounter; N39.0 - Urinary tract infection, site not specified
[2024-12-13] MEDS: DIGOXIN 0.125 MG TAB PO SCH (18:18)
[2024-12-13] MEDS: METOPROLOL SUCC 50MG EXT REL TAB PO SCH (21:39)
[2024-12-14 06:39] LABS: Anion Gap 7.0 (3-11); Blood Urea Nitrogen 12.0 mg/dl (6-23); Calcium 8.6 mg/dl (8.6-10.3); Carbon Dioxide 23.0 mmol/L (21-32); Chloride 107.0 mmol/L (98-107); Creatinine Clr Calc Pharmacy 134.7 ml/min; Glucose 130.0 mg/dl (70-99(Fasting)); Potassium 4.0 mmol/L (3.5-5.1); Sodium 137.0 mmol/L (136-145)
--- NOTE | 2024-12-14 08:47 | XCELERA ---
[id number]
[2024-12-14] MEDS: DIGOXIN 0.125 MG TAB PO SCH (08:54)
--- NOTE | 2024-12-14 13:10 | Hospitalist Progress Note ---
Date of Service December 14, 2024 Assessment & Plan (1) Sepsis: (2) Left leg cellulitis: (3) Catheter-associated urinary tract infection: (4) Atrial fibrillation with RVR: (5) Diabetes mellitus: Plan 74 y/o with chronic foote and venous stasis disease admitted with sepsis due to LLE cellulitis and rapid atrial fibrillation. Sepsis causing metabolic encephalopathy that has worsened baseline dementia # Atrial fibrillation with rapid ventricular rate. Chronic atrial fibrillatio n. - Torpol 32.5mg BID continued - Eliquis 5mg BID - Cardiology following. s/p dig load 0.5, --> 0.125mg daily. - Dig level subtherapeutic AM 12/14. - +0.125 given this afternoon due to subtherapeutic levels continue daily 0.125mg daily. Repeat level in the morning - TTE: LVEF 50-55%. LVSF normal. Rate improved Volume status Net negative 14.8 L over admission. Admitting weight 113 kg, currently 102.5 kg. Dry weight per prior chart review appears around 102-103 kg Slightly hypotensive today, while he does have some chronic lower extremity edema suspect he is slightly volume contracted and BUN/creatinine ratio is beginning to rise 500 cc LR at a cc per hour to supplement p.o. intake # Sepsis - resolved, - Sepsis due to left lower extremity cellulitis. CAUTI ruled out - cultures negative, stopped meropenem - Cellulitis LLE nearly resolved. Complete course of cefazolin/keflex # Diabetes type 2 Diabetes type 2. Recent A1c 6.8% . Hold dapagliflozin Basal discontinued due to hypoglycemia, continue sliding scale -BG well controlled on PRN aspart only # Chronic HFpEF and right heart failure - Chronic HFpEF and right heart failure not in exacerbation. - Not on chronic diuretics - BB continued # Coronary artery disease - Treatment plan: Continue DAPT with aspirin and clopidogrel. B-windy - Eliquis/Plavix continued. DAPT with aspirin d/leela # Chronic Foote catheter, BPH - Hold doxazosin due to hypotension, changed urinary catheter 12/09. Appeared to have been partially obstructed # Significant dementia with behavioral disturbance - Pt has been more aggressive, Continue morning Seroquel and evening risperidone. - At high risk of continued delirium - Appropriate 12/14, requires improved rate control # Sacral decubitus ulcer - Sacral decubitus ulcer present on admission. - Wound ostomy nurse consulted. - Continue frequent turning and pressure offloading. # Obstructive sleep apnea - Continue CPAP therapy at bedtime. # Venous stasis edema and dermatitis bilateral lower extremities - Venous stasis edema and dermatitis bilateral lower extremities. - Continue leg elevation and wound care. # History of DVT Continue apixaban for prophylaxis. Dispo: Pending improved rate control, possibly personal-long term at [facility]. Patient and family expressed interest in resuming hospice services due to his progressive decline over the last year with severe and stage dementia and declining diet. See ACP note. Case management consulted Admission and Anticipated Discharge Date Admission Date: December 08, 2024 Subjective seen at the bedside. NAD. Reports he is here for 'extra beats' and si not sure how he is doing, but feels well. He is not agitated or combative at time of visit. Pleasant, although oriented to name only Denies fever, chills denies cp, chest pressure denies lightheadedness denies palpitations Physical Exam Physical Exam: General: Oriented to name only. NAD. Cooperative. Answers questions appropriately, NAD HEENT: Atraumatic, normocephalic. Vision and hearing grossly intact Pulm: CTAB A&P. -wheezes, -rales, -rhonchi. Symmetrical chest rise. No increased work of breathing. No respiratory distress. Cardiac:irir, rate 98-110, soft sm. Radial pulses intact and symmetrical. Ext: +b/l mild edema. +mild erythema Results & Data Results & Data Vital Signs (Past 12 Hours) Vital Signs Temp Pulse Pulse Resp BP Pulse Ox O2 Del Method 12/14/24 11:25 36.4 C L 101 H 23 88/57 L 98 Room Air 12/14/24 10:17 Room Air 12/14/24 08:54 105 H 12/14/24 07:47 36.5 C 103 H 23 111/71 94 Room Air 12/14/24 07:31 106 H 12/14/24 04:05 36.5 C 112 H 20 112/65 93 Room Air PG Care Time/CCT Total # of Minutes Spent Total Time Spent with Patient: Total time spent is greater than 50% in coordination of care (as documented) at patient's floor/unit and/or counseling patient: Coding Level of Care Code 09918 SUB INP/OBS CARE 3/50MIN Diagnoses Sepsis A41.9 Left leg cellulitis L03.116 Catheter-associated urinary tract infection T83.511A; N39.0 Encounter type: initial encounter Indwelling urinary catheter type: indwelling urethral catheter Atrial fibrillation with RVR I48.91 Diabetes mellitus E11.9 (3) Catheter-associated urinary tract infection Encounter type: initial encounter Indwelling urinary catheter type: indwelling urethral catheter Qualified Code(s): T83.511A - Infection and inflammatory reaction due to indwelling urethral catheter, initial encounter; N39.0 - Urinary tract infection, site not specified
[2024-12-14] MEDS: LACTATED RINGER'S 500 ML IV SCH (15:06)
[2024-12-14] MEDS: DIGOXIN 0.125 MG TAB PO ONE (15:09)
--- NOTE | 2024-12-14 15:51 | Advance Care Plan Prog Note ---
Advanced Care Planning Note Date of Discussion December 14, 2024 ACP Discussion Did have a update with the patient's son-in-law and daughter by phone. This evolved into an ACP discussion as per their report he had previously been on hospice and were potentially interested in resuming the services if he were to qualify Diagnoses requiring ACP discussion: Dementia A long discussion with the patient's daughter and son-in-law regarding the patient's advanced care planning took place during this hospitalization on the above date. The discussion included the explanation and discussion of advance directives and associated forms/documents, as well as the patient's current code status. We also discussed at length the patient's medical conditions (both acute and chronic), general prognosis, treatment options, and goals of care. My conversation occurred directly with patient's son-in-law with daughter nearby per family preference at time of call. Total duration of call 48 minutes. The following summarizes the discussion: Reviewed Isma's progression, current treatment, history, and goals of care with family. His family reports that even when he did not have dementia he was very independent, preferred to avoid hospitals, and prioritize independence and dignity above all else. He did have a decline around 1 year ago and at that time did qualify for hospice services primarily from dementia and transition to hospice however he subsequently did well enough that he no longer qualified for hospice. Unfortunately over the last year has continued to have a progressive worsening of his dementia. Family reports that he has had a decline in oral intake and orientation, and notes that he is often not aware of where he is. While he is not in the active stage of dying, he has had enough deterioration where they wonder if he may again qualify for hospice and if so they would be interested in reenrolling in this. We reviewed palliative care and hospice extensively including qualification, goals of care, and philosophy. They feel that Isma for a very long time has endorsed that his 3 most important priorities are 1, dignity, generally expressed through independence 2. The ability to see his daughter if and when he were to be in the active phase of dying. 3. Prefers to have his autonomy respected (not to be pushed to do things he does not want to do), family notes that his physical location is not as important to him as due to his dementia he is not always aware of where this is anyway. He has been clear in the past including even prior to when he had dementia that he did not want very aggressive measures, would not want feeding tubes, and would not want artificial life support. He would be okay with continuing his current medications as long as he was not having significant side effects of these. Additionally they note that he has had significant benefit while at [facility] in the past to some of his mood dysregulation which is suspected to be at least in part related to his dementia, and were happy to hear that he was on the risperidone/quetiapine which they would like to continue. Reviewed whether or not for things like A-fib, infections, or should his p.o. intake declined to the point where he were dehydrated and having complications of this whether or not he would want recurrent hospitalization at that point. Did review that in some can he says patients do still want aggressive treatment if dehydration, renal dysfunction, and acute exacerbations of their underlying medical diseases with hospitalization; however this can often be a sign that their goals while in valuing comfort are not completely comfort oriented. They expressed understanding of this and will discuss this further amongst and will update provider team, however they do feel hospice was appropriate for him in the past and feel that overall this is likely the most consistent with his goals of care and that in the past he had stopped hospice because he was doing well if not qualify not because his goals were no longer consistent. Assessment of his palliative performance score is with some reduced ambulation, limiting his ability to do at least some work and he requires some assistance for self-care, they endorse that he has had some reduced p.o. intake, and is generally confused due to his dementia although mentation does appear to be at its chronic baseline recently. Based on this PPS would estimate around 60%, although his ambulatory capacity may be slightly underestimated partially due to engagement. They report that they are interested in pursuing hospice and ideally would like to reengage hospice services if he qualifies and return to [place] if possible. They will talk about this more amongst themselves and then reach out after having some time to digest further. Status Resuscitation Status DNR/DNI No Resuscitation Total Time 48 minutes
--- NOTE | 2024-12-14 16:23 | Cardiology Progress Note ---
Date of Service December 14, 2024 Assessment & Plan (1) Fall: (2) Sepsis: (3) Catheter-associated urinary tract infection: (4) Left leg cellulitis: (5) Atrial fibrillation with RVR: (6) CAD (coronary artery disease): (7) Cognitive impairment: Plan Assessment: 74 year old male with advanced cognitive impairment admitted after being found on the floor of his bedroom for unknown duration. initial work up revealed UTI, and left leg cellulitis. Patient has been in A-fib with RVR since admission with lower blood pressures. Cardiology consulted for further assessment and recommendations. Sepsis Atrial fibrillation with RVR - likely exacerbated by sepsis - better controlled Left lower extremity cellulitis CAD s/p PCI Dementia s/p fall IVF Abx as indicated metoprolol adjust dose for HR between 60 to 100 BPM keeping systolic BP between 100-140 mmHg Digoxin can be used carefully for rate control keep K between 4 and 4.5 and Mg between 2 and 2.5 when on Digoxin Continue Plavix and Eliquis correct and f/u electrolytes f/u renal function avoid hypovolemia keep patient euvolemic strict I&Os continue management Admission and Anticipated Discharge Date Admission Date: December 08, 2024 Subjective Patient on exam is lying in bed in NAD; no c/o cp, sob, palpitations, dizziness, LOC; forgetful; more awake today Review of Systems Review of Systems: Unobtainable due to cognitive status Physical Exam Constitutional: + obese Neck: normal visual inspection and trachea midline Respiratory: normal respiratory effort, lungs clear to auscultation Cardiovascular: Rate/Rhythm: + irregularly irregular Heart Sounds: normal S1 and normal S2 Extremities: + edema (left greater than right with active cellulitis) Psychiatric: Orientation: + not oriented x 3 Results & Data Vital Signs (Past 12 Hours) Vital Signs Temp Pulse Pulse Resp BP BP Pulse Ox 12/14/24 16:10 36.3 C L 97 H 18 99/66 L 98 12/14/24 13:00 101 H 101/57 L 12/14/24 12:00 12/14/24 11:30 12/14/24 11:25 36.4 C L 101 H 23 88/57 L 98 12/14/24 10:17 12/14/24 08:54 105 H 12/14/24 07:47 36.5 C 103 H 23 111/71 94 12/14/24 07:31 106 H O2 Del Method O2 Del Method 12/14/24 16:10 Room Air 12/14/24 13:00 12/14/24 12:00 Room Air 12/14/24 11:30 Room Air 12/14/24 11:25 Room Air 12/14/24 10:17 Room Air 12/14/24 08:54 12/14/24 07:47 Room Air 12/14/24 07:31 Laboratory Results Laboratory Results - last 48 hr 12/12/24 12/12/24 12/12/24 16:08 16:44 20:33 Sodium Potassium Chloride Carbon Dioxide Anion Gap BUN Creatinine Est Cr Clr Drug Dosing eGFR BUN/Creatinine Ratio Glucose POC Glucose 109 H 113 H 120 H Calcium Digoxin 12/13/24 12/13/24 12/13/24 07:30 11:16 16:18 Sodium Potassium Chloride Carbon Dioxide Anion Gap BUN Creatinine Est Cr Clr Drug Dosing eGFR BUN/Creatinine Ratio Glucose POC Glucose 106 H 148 H 138 H Calcium Digoxin 12/13/24 12/14/24 12/14/24 20:07 05:50 07:25 Sodium 137 Potassium 4.0 Chloride 107 Carbon Dioxide 23 Anion Gap 7 BUN 12 Creatinine 0.55 L Est Cr Clr Drug Dosing 134.7 eGFR 103.35 BUN/Creatinine Ratio 21.8 H Glucose 130 H POC Glucose 117 H 120 H Calcium 8.6 Digoxin 0.6 L 12/14/24 12/14/24 11:24 15:57 Sodium Potassium Chloride Carbon Dioxide Anion Gap BUN Creatinine Est Cr Clr Drug Dosing eGFR BUN/Creatinine Ratio Glucose POC Glucose 163 H 81 Calcium Digoxin Diagnostic Findings Laboratory Results WBC 9.47 K/ul (4.8-10.8) 12/11/24 06:30 RBC 4.54 M/uL (4.70-6.10) L 12/11/24 06:30 Hgb 14.0 g/dl (14.0-18.0) 12/11/24 06:30 Hct 40.7 % (42.0-52.0) L 12/11/24 06:30 MCV 89.6 fL (80.0-100.0) 12/11/24 06:30 MCH 30.8 pg (25.0-34.0) 12/11/24 06:30 MCHC 34.4 g/dL (32.0-36.0) 12/11/24 06:30 RDW Std Deviation 47.5 fL (36.4-46.3) H 12/11/24 06:30 RDW Coeff of [place] 14.5 % (11.5-14.5) 12/11/24 06:30 Plt Count 263 K/uL (130-400) 12/11/24 06:30 MPV 9.7 fL (9.4-12.4) 12/11/24 06:30 Immature Gran % (Auto) 1.1 % 12/08/24 08:58 Neut % (Auto) 82.1 % 12/08/24 08:58 Lymph % (Auto) 7.5 % 12/08/24 08:58 Hardy % (Auto) 7.5 % 12/08/24 08:58 Eos % (Auto) 1.1 % 12/08/24 08:58 Baso % (Auto) 0.7 % 12/08/24 08:58 Neut # (Auto) 11.16 K/uL (1.40-6.50) H 12/08/24 08:58 Lymph # (Auto) 1.02 K/uL (1.20-3.40) L 12/08/24 08:58 Hardy # (Auto) 1.02 K/uL (0.11-0.59) H 12/08/24 08:58 Eos # (Auto) 0.15 K/uL (0.00-0.50) 12/08/24 08:58 Baso # (Auto) 0.09 K/uL (0.00-0.20) 12/08/24 08:58 Immature Gran # (Auto) 0.15 K/uL (0.01-0.20) 12/08/24 08:58 Sodium 137 mmol/L (136-145) 12/14/24 05:50 Potassium 4.0 mmol/L (3.5-5.1) 12/14/24 05:50 Chloride 107 mmol/L (98-107) 12/14/24 05:50 Carbon Dioxide 23 mmol/L (21-32) 12/14/24 05:50 Anion Gap 7 (3-11) 12/14/24 05:50 BUN 12 mg/dl (6-23) 12/14/24 05:50 Creatinine 0.55 mg/dl (0.6-1.4) L 12/14/24 05:50 Est Cr Clr Drug Dosing 134.7 ml/min 12/14/24 05:50 eGFR 103.35 12/14/24 05:50 BUN/Creatinine Ratio 21.8 (10-20) H 12/14/24 05:50 Glucose 130 mg/dl (70-99(Fasting)) H 12/14/24 05:50 POC Glucose 81 mg/dl (70-99) 12/14/24 15:57 Lactate 1.7 mmol/L (0.4-2.0) 12/08/24 09:11 Calcium 8.6 mg/dl (8.6-10.3) 12/14/24 05:50 Magnesium 1.8 mg/dl (1.7-2.4) 12/09/24 05:42 Total Creatine Kinase 114 U/L (30-223) 12/08/24 08:58 Troponin I High Sens 4.9 pg/ml (0-20) 12/08/24 08:58 Urine Color [place] 12/09/24 14:50 Urine Appearance Clear (Clear) 12/09/24 14:50 Urine pH 7.0 (4.5-7.5) 12/09/24 14:50 Ur Specific [place] 1.010 (1.000-1.030) 12/09/24 14:50 Urine Protein Negative (Negative) 12/09/24 14:50 Urine Glucose (UA) 2+ (Negative) H 12/09/24 14:50 Urine Ketones Trace (Negative) H 12/09/24 14:50 Urine Blood 3+ (Negative) H 12/09/24 14:50 Urine Nitrite Negative (Negative) 12/09/24 14:50 Urine Bilirubin Negative (Negative) 12/09/24 14:50 Urine Urobilinogen Negative (Negative) 12/09/24 14:50 Ur Leukocyte Esterase 3+ (Negative) H 12/09/24 14:50 Urine WBC (Auto) >50 /hpf (0-5) H 12/09/24 14:50 Urine RBC (Auto) >20 /hpf (0-2) H 12/09/24 14:50 U Hyaline Cast (Auto) 0-2 /lpf (0-2) 12/09/24 14:50 U Epithel Cells (Auto) 0-2 /hpf (0-2) 12/09/24 14:50 Urine Bacteria (Auto) None Seen (None Seen) 12/09/24 14:50 Urine Comment 12/09/24 14:50 Nasal Screen MRSA (PCR) Positive (Negative) A 12/08/24 16:00 Digoxin 0.6 ng/ml (0.8-2.0) L 12/14/24 05:[address] 12/08/24 07:40 Clinical history: Injury Technique: Axial computed tomography images were obtained of the cervical spine without intravenous contrast. Sagittal and coronal reconstructions were obtained Findings: No fracture is identified. There is 2 mm of anterolisthesis of C3 on C4. No focal osseous lesion is evident. There is atlantoaxial osteoarthritis At C2-3, there is spinal stenosis due to a disc bulge and a right paracentral disc herniation. There is mild bilateral neural foramen narrowing At C3-4, there is spinal stenosis due to a disc bulge and a central disc protrusion. There is bilateral neural foramen narrowing that may affect the exiting C4 nerve roots At C4-5, there is mild spinal stenosis due to a disc bulge and a central disc protrusion. There is left neural foramen narrowing that may affect the left C5 nerve root At C5-6, there is spinal stenosis due to a disc bulge and a central to right paracentral disc osteophyte protrusion. There is bilateral neural foramen narrowing that may affect the exiting C6 nerve roots At C6-7, there is a disc bulge without spinal stenosis. There is left greater than right neural foramen narrowing that may affect the left C7 nerve root At C7-T1, there is a disc bulge without spinal stenosis. The neural foramen are patent The lung apices appear clear. The visualized soft tissues of the neck appear unremarkable. No foreign body is seen Impression: 1. No definite cervical spine fracture 2. Mild anterolisthesis at C3-4, which may be degenerative 3. Spinal stenosis from C2-3 through C5-6 4. Bilateral C3-4, left C4-5, bilateral C5-6, and left C6-7 neural foramen narrowing. This may affect the exiting nerve roots ACT 112: Positive. There are findings on this exam that require communication between the performing entity and the patient following Patient Test Result Information Act ([place] ACT 112) guidelines. Electronically signed by Seymour Acosta 12-08-2024 09:12 AM Chest X-Ray 12/08/24 07:40 Technique: 2 frontal views of the chest were obtained Comparison is made to the prior examination dated 10/30/2024 Findings: There are no confluent pulmonary infiltrates. The heart size is within normal limits. No pleural effusion or pneumothorax is seen. There is no definite pulmonary nodule. No fracture is noted. There is thoracic degenerative disc disease. There are bilateral shoulder arthroplasties Impression: No active disease Electronically signed by Seymour Acosta 12-08-2024 08:38 AM Femur X-Ray 12/08/24 07:40 4 views of the left femur are submitted for review. Findings: No fracture or dislocation is seen. There is severe left hip osteoarthritis. No other osseous abnormality is identified. There are no radiopaque foreign bodies. Impression: Severe left hip osteoarthritis Electronically signed by Seymour Acosta 12-08-2024 08:[address] 12/08/24 07:40 Clinical History: Injury Technique: Axial computed tomography images were obtained of the brain without intravenous contrast. Findings: There is diffuse cerebral atrophy, within expected limits for the patient's age. Areas of decreased attenuation are seen within the periventricular white matter, likely representing chronic small vessel ischemic disease. There is no definite sign of acute or old infarction. No intracranial hemorrhage is evident. No definite mass lesion is seen on this noncontrast examination. There is no midline shift or other form of herniation. No hydrocephalus is seen. No fracture is identified. The orbits and the visualized paranasal sinuses appear unremarkable. The mastoid air cells appear clear. Impression: 1. Cerebral atrophy and chronic small vessel ischemic disease 2. Otherwise unremarkable noncontrast CT of the brain Electronically signed by Seymour Acosta 12-08-2024 09:25 AM Pelvis X-Ray 12/08/24 07:40 2 views of the pelvis are submitted for review. Findings: No fracture is seen. There is a right hip total arthroplasty in expected position. There is severe left hip osteoarthritis. No other osseous abnormality is identified. There are no radiopaque foreign bodies. Impression: 1. Right hip replacement 2. Severe left hip osteoarthritis Electronically signed by Seymour Acosta 12-08-2024 08:42 AM 12/14/24 ECHO Interpretation Summary The study was technically difficult. Left ventricular systolic function is normal. Left Ventricular Ejection Fraction = 50-55% Medications Administered Home Medications Medication Instructions Recorded Confirmed Last Taken aspirin 81 mg tablet,delayed 81 mg PO QAM 05/18/18 12/08/24 05/29/24 release folic acid 1 mg tablet 1 mg PO BID 05/18/18 12/08/24 05/29/24 rosuvastatin 20 mg tablet 20 mg PO HS 05/18/18 12/08/24 05/29/24 cholecalciferol (vitamin D3) 50 50 mcg PO QAM 09/04/19 12/08/24 05/29/24 mcg (2,000 unit) capsule (Vitamin D3) pantoprazole 40 mg tablet,delayed 40 mg PO QAM 02/18/23 12/08/24 05/29/24 release melatonin 3 mg disintegrating 3 mg PO HS 03/26/23 12/08/24 05/29/24 tablet multivitamin (Daily-Lala tablet) 1 tab PO QAM 03/26/23 12/08/24 05/29/24 potassium chloride 10 mEq 10 meq PO TID 03/26/23 12/08/24 05/29/24 tablet,extended release(part/cryst) clopidogrel 75 mg tablet 75 mg PO QAM 10/22/23 12/08/24 05/29/24 nystatin 100,000 unit/gram topical 1 applic topical BID 10/22/23 12/08/24 05/29/24 cream quetiapine 25 mg tablet (Seroquel) 25 mg PO QAM 05/17/24 12/08/24 05/29/24 sennosides 8.6 mg-docusate sodium 1 tab-cap PO DAILY PRN Constipation 05/20/24 12/08/24 Unknown 50 mg tablet (Senna with Docusate Sodium) apixaban 5 mg tablet (Eliquis) 5 mg PO BID 10/18/24 12/08/24 Unknown insulin glargine 100 unit/mL (3 7 unit subcut HS 10/18/24 12/08/24 Unknown mL) subcutaneous pen (Lantus Solostar U-100 Insulin) metoprolol succinate 25 mg 25 mg PO BID 10/18/24 12/08/24 Unknown tablet,extended release 24 hr loperamide 2 mg tablet 2 mg PO Q6H PRN Diarrhea 10/30/24 12/08/24 Unknown acetaminophen 325 mg tablet 650 mg PO TID PRN Pain 12/08/24 12/08/24 Unknown doxazosin 1 mg tablet 1 mg PO HS 12/08/24 12/08/24 Unknown empagliflozin 25 mg tablet 25 mg PO DAILY 12/08/24 12/08/24 Unknown (Jardiance) lorazepam 0.5 mg tablet 0.5 mg PO ONCE PRN CATHETER CHANGE 12/08/24 12/08/24 Unknown risperidone 0.5 mg tablet 0.5 mg PO HS 12/08/24 12/08/24 Unknown Active Medications Generic Name Dose Route Start Last Admin Trade Name Freq PRN Reason Stop Dose Admin Acetaminophen 650 mg 12/08/24 15:22 12/09/24 08:27 Acetaminophen 325 Mg Tab PO 01/07/25 15:21 650 mg Q4H PRN Administration Pain or Fever Apixaban 5 mg 12/08/24 21:00 12/14/24 08:54 Apixaban 5 Mg Tablet PO 01/07/25 20:59 5 mg BID STEPHANIE Administration Clopidogrel Bisulfate 75 mg 12/09/24 09:00 12/14/24 08:54 Clopidogrel Bisulfate 75 Mg Tab PO 01/08/25 08:59 75 mg QAM STEPHANIE Administration Digoxin 0.125 mg 12/14/24 09:00 12/14/24 08:54 Digoxin 0.125 Mg Tab PO 01/13/25 08:59 0.125 mg DAILY STEPHANIE Administration Cefazolin Sodium 2,000 mg in 15 mls @ 3.75 mls/min 12/11/24 00:00 12/14/24 16:14 Ancef 2000mg IV 12/18/24 00:00 3.75 mls/min Q8H STEPHANIE Administration Lactated Ringer's 500 mls @ 80 mls/hr 12/14/24 15:00 12/14/24 15:06 Lr IV 12/17/24 14:59 80 mls/hr .[id number] STEPHANIE Administration Insulin Aspart 0 units 12/08/24 16:30 12/14/24 13:22 Insulin Aspart Per Unit Charge SC 01/07/25 16:29 4 units ACHS STEPHANIE Administration Insulin Glargine 7 units 12/08/24 21:00 12/09/24 21:34 Lantus Per Unit Charge SC 01/07/25 20:59 7 units HS STEPHANIE Administration Melatonin 3 mg 12/08/24 21:00 12/13/24 21:36 Melatonin 3 Mg Tab PO 01/07/25 20:59 3 mg HS STEPHANIE Administration Metoprolol Succinate 50 mg 12/13/24 21:00 12/14/24 08:55 Metoprolol Succ 50mg Ext Rel Tab PO 01/12/25 20:59 50 mg BID STEPHANIE Administration Miscellaneous 15 - 30 gm 12/08/24 15:22 12/10/24 08:00 Carbohydrates For Hypoglycemia PO 01/07/25 15:21 15 gm UD PRN Administration Hypoglycemia Protocol Nystatin 1 appln 12/08/24 21:00 12/14/24 08:56 Nystatin Cr 15 Gm Tube EXT 01/07/25 20:59 1 appln BID STEPHANIE Administration Pantoprazole Sodium 40 mg 12/09/24 09:00 12/14/24 08:53 Pantoprazole 40 Mg Tab PO 01/08/25 08:59 40 mg QAM STEPHANIE Administration Potassium Chloride 10 meq 12/08/24 15:45 12/14/24 13:27 Potassium Chloride 10 Meq Tabcr PO 01/07/25 15:44 10 meq TID STEPHANIE Administration Quetiapine Fumarate 25 mg 12/09/24 09:00 12/14/24 08:54 Quetiapine Fumarate 25 Mg Tablet PO 01/08/25 08:59 25 mg QAM STEPHANIE Administration Risperidone 0.5 mg 12/08/24 21:00 12/13/24 22:50 Risperidone 0.5 Mg Tablet PO 01/07/25 20:59 0.5 mg HS STEPHANIE Administration Rosuvastatin Calcium 20 mg 12/08/24 21:00 12/13/24 22:50 Rosuvastatin Calcium 20 Mg Tab PO 01/07/25 20:59 20 mg HS STEPHANIE Administration PG Care Time/CCT Total # of Minutes Spent Total Time Spent with Patient: Total time spent is greater than 50% in coordination of care (as documented) at patient's floor/unit and/or counseling patient: Coding Level of Care Code 27482 SUB INP/OBS CARE 3/50MIN Diagnoses Fall W19.XXXA Encounter type: initial encounter Sepsis A41.9; R65.20; G93.41 Sepsis acute organ dysfunction status: with acute organ dysfunction Sepsis type: sepsis due to unspecified organism Severe sepsis acute organ dysfunction type: encephalopathy Severe sepsis shock status: without septic shock Catheter-associated urinary tract infection T83.511A; N39.0 Encounter type: initial encounter Indwelling urinary catheter type: indwelling urethral catheter Left leg cellulitis L03.116 Atrial fibrillation with RVR I48.91 CAD (coronary artery disease) I25.10 Cognitive impairment R41.89 (1) Fall Encounter type: initial encounter Qualified Code(s): W19.XXXA - Unspecified fall, initial encounter (2) Sepsis Sepsis acute organ dysfunction status: with acute organ dysfunction Sepsis type: sepsis due to unspecified organism Severe sepsis acute organ dysfunction type: encephalopathy Severe sepsis shock status: without septic shock Qualified Code(s): A41.9 - Sepsis, unspecified organism; R65.20 - Severe sepsis without septic shock; G93.41 - Metabolic encephalopathy (3) Catheter-associated urinary tract infection Encounter type: initial encounter Indwelling urinary catheter type: indwelling urethral catheter Qualified Code(s): T83.511A - Infection and inflammatory reaction due to indwelling urethral catheter, initial encounter; N39.0 - Urinary tract infection, site not specified
[2024-12-15 07:38] LABS: Hematocrit (blood only) 43.9 % (42.0-52.0); Hemoglobin 14.6 g/dl (14.0-18.0); Immature Granulocytes # (auto) 0.12 K/uL (0.01-0.20); Immature Granulocytes % (auto) 1.4 %; Mean Corpuscular Hemoglobin 29.8 pg (25.0-34.0); Mean Corpuscular Volume 89.6 fL (80.0-100.0); Platelet Count 295 K/uL (130-400); RDW Standard Deviation 47.5 fL (36.4-46.3); Red Blood Count 4.90 M/uL (4.70-6.10); White Blood Count 8.60 K/ul (4.8-10.8)
[2024-12-15 07:55] LABS: Anion Gap 7.0 (3-11); Blood Urea Nitrogen 16.0 mg/dl (6-23); Calcium 8.7 mg/dl (8.6-10.3); Carbon Dioxide 24.0 mmol/L (21-32); Chloride 108.0 mmol/L (98-107); Creatinine Clr Calc Pharmacy 110.6 ml/min; Glucose 123.0 mg/dl (70-99(Fasting)); Potassium 4.2 mmol/L (3.5-5.1); Sodium 139.0 mmol/L (136-145)
[2024-12-15] MEDS: DOCUSATE SODIUM/SENNA 50/8.6MG TAB PO PRN (08:40)
--- NOTE | 2024-12-15 12:09 | Hospitalist Progress Note ---
Date of Service December 15, 2024 Assessment & Plan (1) Sepsis: (2) Left leg cellulitis: (3) Catheter-associated urinary tract infection: (4) Atrial fibrillation with RVR: (5) Diabetes mellitus: Plan 74 y/o with chronic foote and venous stasis disease admitted with sepsis due to LLE cellulitis and rapid atrial fibrillation. Sepsis causing metabolic encephalopathy that has worsened baseline dementia Disposition planning: Extended discussion regarding goals of care on 12/14. See ACP note. Isma, his daughter Tricia, and son-in-law Vj would like to pursue hospice at his [facility]. Of note they report that his goals of care were consistent with this a year ago however he did well enough that he no longer qualified however his chronic baseline has continued to decline that time and they would like to resume the services. He is not able to return to [facility] put up till Tuesday, per discussion with case management referral has been made to [address] [place] [id number]. Based on his PPS at time of provider assessment of 12/14 he does qualify. Continue current medications as long as he is not having substantial side effects from these. Could discontinue Eliquis if he has any complications bleeding however he has tolerated this well and will continue this. He is sarah ating his current antiarrhythmic therapy well and we will continue these medications. Digoxin was slightly subtherapeutic this morning however heart rate has improved and overall appears more stable so we will continue current maintenance dosing. He is not on diuretics at baseline, he does have venous stasis component but seems near euvolemic after 500 cc of supplemental fluid at maintenance on 12/14. On returning home can continue p.o. as tolerated Family confirms DNR/DNI. He would not want aggressive measures/escalation of care/invasive measures. Phone update given to daughter Tricia who confirms above 12/15 - CM following. Antipate return to [facility] with Hospice services 12/17. # Atrial fibrillation with rapid ventricular rate. Chronic atrial fibrillation, improved - Cardiology following. s/p dig load 0.5, --> 0.125mg daily. - Dig level subtherapeutic AM 12/14 and 12/15 Dig level 10/ 0.7, just slightly subtherapeutic however rate is improved and in the 90s. He is asymptomatic from this at this time - TTE: LVEF 50-55%. LVSF normal. Continue Eliquis, metoprolol, daily digoxin 0.125 mg Volume status Net negative 14.8 L over admission. Admitting weight 113 kg, currently 102.5 kg. Dry weight per prior chart review appears around 102-103 kg Slightly hypotensive today, while he does have some chronic lower extremity edema suspect he is slightly volume contracted and BUN/creatinine ratio is beginning to rise Slow 500 cc bolus given 12/15 with clinical improvement in heart rate and blood pressure, and without worsened signs of fluid overload. Continue oral intake, p.o. encouraged # Sepsis - resolved, - Sepsis due to left lower extremity cellulitis. CAUTI ruled out - cultures negative, stopped meropenem - Cellulitis LLE appears resolved. Some hyperpigmentation however no erythema/warmth/tenderness on reassessment 12/15 # Diabetes type 2 - Diabetes type 2. Recent A1c 6.8% - Hold dapagliflozin -Basal discontinued due to hypoglycemia, continue sliding scale -BG well controlled on PRN aspart only # Chronic HFpEF and right heart failure - Chronic HFpEF and right heart failure not in exacerbation. - Not on chronic diuretics. Clinically slightly dry on assessment 12/14, near euvolemic 12/15 - BB continued # Coronary artery disease - Eliquis/Plavix continued. DAPT with aspirin d/leela Continue metoprolol # Chronic Foote catheter, BPH - Hold doxazosin due to hypotension, changed urinary catheter 12/09. Appeared to have been partially obstructed # Significant dementia with behavioral disturbance - Greatly improved as hospitalization has progressed Continue risperidone 0.5 mg at bedtime, quetiapine 25 mg every morning. Appears to be doing well with this combination. Family would like this combination continued on discharge # Sacral decubitus ulcer - Wound ostomy nurse consulted. - Continue frequent turning and pressure offloading. # Obstructive sleep apnea - Continue CPAP therapy at bedtime. # Venous stasis edema and dermatitis bilateral lower extremities - Venous stasis edema and dermatitis bilateral lower extremities, improved from prior but not completely resolved Will need mobilization for stasis component. Clinically overall seems near euvolemic aside from the # History of DVT Continue apixaban for prophylaxis. Admission and Anticipated Discharge Date Admission Date: December 08, 2024 Subjective Oriented to name only. Pleasant. Reports that he is not sure where his suits a re and would like these when possible, no other questions. No pain. Denies fever chills or sweats. No discomfort. Physical Exam Physical Exam: General: Oriented to name only. NAD. Cooperative. Answers questions appropriately, NAD HEENT: Atraumatic, normocephalic. Vision and hearing grossly intact Pulm: CTAB A&P. -wheezes, -rales, -rhonchi. Symmetrical chest rise. No increased work of breathing. No respiratory distress. Cardiac:irir, rate 90s, soft sm. Radial pulses intact and symmetrical. Ext: +b/l mild edema. erythema has resolved. Mild hyperpigmentation. Results & Data Results & Data Vital Signs (Past 12 Hours) Vital Signs Temp Pulse Pulse Resp BP Pulse Ox O2 Del Method 12/15/24 10:56 36.3 C L 94 H 18 105/73 95 Room Air 12/15/24 08:30 Room Air 12/15/24 07:08 36.6 C 97 H 18 109/72 94 Room Air 12/15/24 05:56 89 12/15/24 00:02 36.5 C 101 H 17 113/81 95 Room Air PG Care Time/CCT Total # of Minutes Spent Total Time Spent with Patient: Total time spent is greater than 50% in coordination of care (as documented) at patient's floor/unit and/or counseling patient: Coding Level of Care Code 03036 SUB INP/OBS CARE 3/50MIN Diagnoses Sepsis A41.9 Left leg cellulitis L03.116 Catheter-associated urinary tract infection T83.511A; N39.0 Encounter type: initial encounter Indwelling urinary catheter type: indwelling urethral catheter Atrial fibrillation with RVR I48.91 Diabetes mellitus E11.9 (3) Catheter-associated urinary tract infection Encounter type: initial encounter Indwelling urinary catheter type: indwelling urethral catheter Qualified Code(s): T83.511A - Infection and inflammatory reaction due to indwelling urethral catheter, initial encounter; N39.0 - Urinary tract infection, site not specified
--- NOTE | 2024-12-15 14:52 | Cardiology Progress Note ---
Date of Service December 15, 2024 Assessment & Plan (1) Fall: (2) Sepsis: (3) Catheter-associated urinary tract infection: (4) Left leg cellulitis: (5) Atrial fibrillation with RVR: (6) CAD (coronary artery disease): (7) Cognitive impairment: Plan Assessment: 74 year old male with advanced cognitive impairment admitted after being found on the floor of his bedroom for unknown duration. initial work up revealed UTI, and left leg cellulitis. Patient has been in A-fib with RVR since admission with lower blood pressures. Cardiology consulted for further assessment and recommendations. Sepsis Atrial fibrillation with RVR - likely exacerbated by sepsis - better controlled -CVR Left lower extremity cellulitis CAD s/p PCI Dementia s/p fall IVF/increase po fluid intake -defer to hospitalist Abx as indicated metoprolol adjust dose for HR between 60 to 100 BPM keeping systolic BP between 100-140 mmHg Digoxin can be used carefully for rate control keep K between 4 and 4.5 and Mg between 2 and 2.5 when on Digoxin Continue Plavix and Eliquis correct and f/u electrolytes f/u renal function avoid hypovolemia keep patient euvolemic strict I&Os continue management Stable from cardiac standpoint recall if needed will sign off Admission and Anticipated Discharge Date Admission Date: December 08, 2024 Subjective Patient on exam is lying in bed in NAD; no c/o cp, sob, palpitations, dizziness; pleasantly confused Review of Systems Review of Systems: Unobtainable due to cognitive status Physical Exam Constitutional: + obese Neck: normal visual inspection and trachea midline Respiratory: normal respiratory effort, lungs clear to auscultation Cardiovascular: Rate/Rhythm: + irregularly irregular Heart Sounds: normal S1 and normal S2 Extremities: + edema (left greater than right with active cellulitis) Psychiatric: Orientation: + not oriented x 3 Results & Data Vital Signs (Past 12 Hours) Vital Signs Temp Pulse Pulse Resp BP Pulse Ox O2 Del Method 12/15/24 12:00 12/15/24 10:56 36.3 C L 94 H 18 105/73 95 Room Air 12/15/24 08:30 Room Air 12/15/24 07:08 36.6 C 97 H 18 109/72 94 Room Air 12/15/24 05:56 89 O2 Del Method 12/15/24 12:00 Room Air 12/15/24 10:56 12/15/24 08:30 12/15/24 07:08 12/15/24 05:56 Vital Signs Temp 36.3 C L 12/15/24 10:56 Pulse 94 H 12/15/24 10:56 Resp 18 12/15/24 10:56 BP 105/73 12/15/24 10:56 Pulse Ox 95 12/15/24 10:56 O2 Del Method Room Air 12/15/24 12:00 Intake & Output 12/14/24 12/15/24 12/15/24 18:59 06:59 18:59 Intake Total 476 / 1096 620 / 1096 600 / 600 Output Total 850 / 3600 2750 / 3600 650 / 650 Balance -374 / -2504 -2130 / -2504 -50 / -50 Weight 102.5 kg 102.6 kg Intake: IV 500 / 500 Lactated Ringer's 500 ml @ 80 500 / 500 mls/hr IV .[id number] [facility] Rx#: [id number] Oral 476 / 596 120 / 596 600 / 600 Output: Urine Amount (Catheter) 850 / 3600 2750 / 3600 650 / 650 Estevez/Indwelling 850 / 3600 2750 / 3600 650 / 650 Laboratory Results Laboratory Results - last 48 hr 12/13/24 12/13/24 12/14/24 16:18 20:07 05:50 WBC RBC Hgb Hct MCV MCH MCHC RDW Std Deviation RDW Coeff of Carlton Plt Count MPV Immature Gran % (Auto) Neut % (Auto) Lymph % (Auto) [place] % (Auto) Eos % (Auto) Baso % (Auto) Neut # (Auto) Lymph # (Auto) [place] # (Auto) Eos # (Auto) Baso # (Auto) Immature Gran # (Auto) Sodium 137 Potassium 4.0 Chloride 107 Carbon Dioxide 23 Anion Gap 7 BUN 12 Creatinine 0.55 L Est Cr Clr Drug Dosing 134.7 eGFR 103.35 BUN/Creatinine Ratio 21.8 H Glucose 130 H POC Glucose 138 H 117 H Calcium 8.6 Digoxin 0.6 L 12/14/24 12/14/24 12/14/24 07:25 11:24 15:57 WBC RBC Hgb Hct MCV MCH MCHC RDW Std Deviation RDW Coeff of Carlton Plt Count MPV Immature Gran % (Auto) Neut % (Auto) Lymph % (Auto) [place] % (Auto) Eos % (Auto) Baso % (Auto) Neut # (Auto) Lymph # (Auto) [place] # (Auto) Eos # (Auto) Baso # (Auto) Immature Gran # (Auto) Sodium Potassium Chloride Carbon Dioxide Anion Gap BUN Creatinine Est Cr Clr Drug Dosing eGFR BUN/Creatinine Ratio Glucose POC Glucose 120 H 163 H 81 Calcium Digoxin 12/14/24 12/15/24 12/15/24 20:25 07:01 07:07 WBC 8.60 RBC 4.90 Hgb 14.6 Hct 43.9 MCV 89.6 MCH 29.8 MCHC 33.3 RDW Std Deviation 47.5 H RDW Coeff of Carlton 14.5 Plt Count 295 MPV 9.6 Immature Gran % (Auto) 1.4 Neut % (Auto) 73.4 Lymph % (Auto) 12.1 [place] % (Auto) 9.1 Eos % (Auto) 3.3 Baso % (Auto) 0.7 Neut # (Auto) 6.32 Lymph # (Auto) 1.04 L [place] # (Auto) 0.78 H Eos # (Auto) 0.28 Baso # (Auto) 0.06 Immature Gran # (Auto) 0.12 Sodium 139 Potassium 4.2 Chloride 108 H Carbon Dioxide 24 Anion Gap 7 BUN 16 Creatinine 0.67 Est Cr Clr Drug Dosing 110.6 eGFR 97.37 BUN/Creatinine Ratio 23.9 H Glucose 123 H POC Glucose 93 111 H Calcium 8.7 Digoxin 0.7 L 12/15/24 10:59 WBC RBC Hgb Hct MCV MCH MCHC RDW Std Deviation RDW Coeff of [place] Plt Count MPV Immature Gran % (Auto) Neut % (Auto) Lymph % (Auto) [place] % (Auto) Eos % (Auto) Baso % (Auto) Neut # (Auto) Lymph # (Auto) [place] # (Auto) Eos # (Auto) Baso # (Auto) Immature Gran # (Auto) Sodium Potassium Chloride Carbon Dioxide Anion Gap BUN Creatinine Est Cr Clr Drug Dosing eGFR BUN/Creatinine Ratio Glucose POC Glucose 123 H Calcium Digoxin Diagnostic Findings Laboratory Results WBC 8.60 K/ul (4.8-10.8) 12/15/24 07:01 RBC 4.90 M/uL (4.70-6.10) 12/15/24 07:01 Hgb 14.6 g/dl (14.0-18.0) 12/15/24 07:01 Hct 43.9 % (42.0-52.0) 12/15/24 07:01 MCV 89.6 fL (80.0-100.0) 12/15/24 07:01 MCH 29.8 pg (25.0-34.0) 12/15/24 07:01 MCHC 33.3 g/dL (32.0-36.0) 12/15/24 07:01 RDW Std Deviation 47.5 fL (36.4-46.3) H 12/15/24 07:01 RDW Coeff of Carl[place] 14.5 % (11.5-14.5) 12/15/24 07:01 Plt Count 295 K/uL (130-400) 12/15/24 07:01 MPV 9.6 fL (9.4-12.4) 12/15/24 07:01 Immature Gran % (Auto) 1.4 % 12/15/24 07:01 Neut % (Auto) 73.4 % 12/15/24 07:01 Lymph % (Auto) 12.1 % 12/15/24 07:01 [place] % (Auto) 9.1 % 12/15/24 07:01 Eos % (Auto) 3.3 % 12/15/24 07:01 Baso % (Auto) 0.7 % 12/15/24 07:01 Neut # (Auto) 6.32 K/uL (1.40-6.50) 12/15/24 07:01 Lymph # (Auto) 1.04 K/uL (1.20-3.40) L 12/15/24 07:01 [place] # (Auto) 0.78 K/uL (0.11-0.59) H 12/15/24 07:01 Eos # (Auto) 0.28 K/uL (0.00-0.50) 12/15/24 07:01 Baso # (Auto) 0.06 K/uL (0.00-0.20) 12/15/24 07:01 Immature Gran # (Auto) 0.12 K/uL (0.01-0.20) 12/15/24 07:01 Sodium 139 mmol/L (136-145) 12/15/24 07:01 Potassium 4.2 mmol/L (3.5-5.1) 12/15/24 07:01 Chloride 108 mmol/L (98-107) H 12/15/24 07:01 Carbon Dioxide 24 mmol/L (21-32) 12/15/24 07:01 Anion Gap 7 (3-11) 12/15/24 07:01 BUN 16 mg/dl (6-23) 12/15/24 07:01 Creatinine 0.67 mg/dl (0.6-1.4) 12/15/24 07:01 Est Cr Clr Drug Dosing 110.6 ml/min 12/15/24 07:01 eGFR 97.37 12/15/24 07:01 BUN/Creatinine Ratio 23.9 (10-20) H 12/15/24 07:01 Glucose 123 mg/dl (70-99(Fasting)) H 12/15/24 07:01 POC Glucose 123 mg/dl (70-99) H 12/15/24 10:59 Lactate 1.7 mmol/L (0.4-2.0) 12/08/24 09:11 Calcium 8.7 mg/dl (8.6-10.3) 12/15/24 07:01 Magnesium 1.8 mg/dl (1.7-2.4) 12/09/24 05:42 Total Creatine Kinase 114 U/L (30-223) 12/08/24 08:58 Troponin I High Sens 4.9 pg/ml (0-20) 12/08/24 08:58 Urine Color [place] 12/09/24 14:50 Urine Appearance Clear (Clear) 12/09/24 14:50 Urine pH 7.0 (4.5-7.5) 12/09/24 14:50 Ur Specific [place] 1.010 (1.000-1.030) 12/09/24 14:50 Urine Protein Negative (Negative) 12/09/24 14:50 Urine Glucose (UA) 2+ (Negative) H 12/09/24 14:50 Urine Ketones Trace (Negative) H 12/09/24 14:50 Urine Blood 3+ (Negative) H 12/09/24 14:50 Urine Nitrite Negative (Negative) 12/09/24 14:50 Urine Bilirubin Negative (Negative) 12/09/24 14:50 Urine Urobilinogen Negative (Negative) 12/09/24 14:50 Ur Leukocyte Esterase 3+ (Negative) H 12/09/24 14:50 Urine WBC (Auto) >50 /hpf (0-5) H 12/09/24 14:50 Urine RBC (Auto) >20 /hpf (0-2) H 12/09/24 14:50 U Hyaline Cast (Auto) 0-2 /lpf (0-2) 12/09/24 14:50 U Epithel Cells (Auto) 0-2 /hpf (0-2) 12/09/24 14:50 Urine Bacteria (Auto) None Seen (None Seen) 12/09/24 14:50 Urine Comment 12/09/24 14:50 Nasal Screen MRSA (PCR) Positive (Negative) A 12/08/24 16:00 Digoxin 0.7 ng/ml (0.8-2.0) L 12/15/24 07:[address] 12/08/24 07:40 Clinical history: Injury Technique: Axial computed tomography images were obtained of the cervical spine without intravenous contrast. Sagittal and coronal reconstructions were obtained Findings: No fracture is identified. There is 2 mm of anterolisthesis of C3 on C4. No focal osseous lesion is evident. There is atlantoaxial osteoarthritis At C2-3, there is spinal stenosis due to a disc bulge and a right paracentral disc herniation. There is mild bilateral neural foramen narrowing At C3-4, there is spinal stenosis due to a disc bulge and a central disc protrusion. There is bilateral neural foramen narrowing that may affect the exiting C4 nerve roots At C4-5, there is mild spinal stenosis due to a disc bulge and a central disc protrusion. There is left neural foramen narrowing that may affect the left C5 nerve root At C5-6, there is spinal stenosis due to a disc bulge and a central to right paracentral disc osteophyte protrusion. There is bilateral neural foramen narrowing that may affect the exiting C6 nerve roots At C6-7, there is a disc bulge without spinal stenosis. There is left greater than right neural foramen narrowing that may affect the left C7 nerve root At C7-T1, there is a disc bulge without spinal stenosis. The neural foramen are patent The lung apices appear clear. The visualized soft tissues of the neck appear unremarkable. No foreign body is seen Impression: 1. No definite cervical spine fracture 2. Mild anterolisthesis at C3-4, which may be degenerative 3. Spinal stenosis from C2-3 through C5-6 4. Bilateral C3-4, left C4-5, bilateral C5-6, and left C6-7 neural foramen narrowing. This may affect the exiting nerve roots ACT 112: Positive. There are findings on this exam that require communication between the performing entity and the patient following Patient Test Result Information Act ([place] ACT 112) guidelines. Electronically signed by Seymour Acosta 12-08-2024 09:12 AM Chest X-Ray 12/08/24 07:40 Technique: 2 frontal views of the chest were obtained Comparison is made to the prior examination dated 10/30/2024 Findings: There are no confluent pulmonary infiltrates. The heart size is within normal limits. No pleural effusion or pneumothorax is seen. There is no definite pulmonary nodule. No fracture is noted. There is thoracic degenerative disc disease. There are bilateral shoulder arthroplasties Impression: No active disease Electronically signed by Seymour Acosta 12-08-2024 08:38 AM Femur X-Ray 12/08/24 07:40 4 views of the left femur are submitted for review. Findings: No fracture or dislocation is seen. There is severe left hip osteoarthritis. No other osseous abnormality is identified. There are no radiopaque foreign bodies. Impression: Severe left hip osteoarthritis Electronically signed by Seymour Acosta 12-08-2024 08:[address] 12/08/24 07:40 Clinical History: Injury Technique: Axial computed tomography images were obtained of the brain without intravenous contrast. Findings: There is diffuse cerebral atrophy, within expected limits for the patient's age. Areas of decreased attenuation are seen within the periventricular white matter, likely representing chronic small vessel ischemic disease. There is no definite sign of acute or old infarction. No intracranial hemorrhage is evident. No definite mass lesion is seen on this noncontrast examination. There is no midline shift or other form of herniation. No hydrocephalus is seen. No fracture is identified. The orbits and the visualized paranasal sinuses appear unremarkable. The mastoid air cells appear clear. Impression: 1. Cerebral atrophy and chronic small vessel ischemic disease 2. Otherwise unremarkable noncontrast CT of the brain Electronically signed by Seymour Acosta 12-08-2024 09:25 AM Pelvis X-Ray 12/08/24 07:40 2 views of the pelvis are submitted for review. Findings: No fracture is seen. There is a right hip total arthroplasty in expected position. There is severe left hip osteoarthritis. No other osseous abnormality is identified. There are no radiopaque foreign bodies. Impression: 1. Right hip replacement 2. Severe left hip osteoarthritis Electronically signed by Seymour Acosta 12-08-2024 08:42 AM Medications Administered Home Medications Medication Instructions Recorded Confirmed Last Taken aspirin 81 mg tablet,delayed 81 mg PO QAM 05/18/18 12/08/24 05/29/24 release folic acid 1 mg tablet 1 mg PO BID 05/18/18 12/08/24 05/29/24 rosuvastatin 20 mg tablet 20 mg PO HS 05/18/18 12/08/24 05/29/24 cholecalciferol (vitamin D3) 50 50 mcg PO QAM 09/04/19 12/08/24 05/29/24 mcg (2,000 unit) capsule (Vitamin D3) pantoprazole 40 mg tablet,delayed 40 mg PO QAM 02/18/23 12/08/24 05/29/24 release melatonin 3 mg disintegrating 3 mg PO 03/26/23 12/08/24 05/29/24 tablet multivitamin (Daily-Lala tablet) 1 tab PO QAM 03/26/23 12/08/24 05/29/24 potassium chloride 10 mEq 10 meq PO TID 03/26/23 12/08/24 05/29/24 tablet,extended release(part/cryst) clopidogrel 75 mg tablet 75 mg PO QAM 10/22/23 12/08/24 05/29/24 nystatin 100,000 unit/gram topical 1 applic topical BID 10/22/23 12/08/24 05/29/24 cream quetiapine 25 mg tablet (Seroquel) 25 mg PO QAM 05/17/24 12/08/24 05/29/24 sennosides 8.6 mg-docusate sodium 1 tab-cap PO DAILY PRN Constipation 05/20/24 12/08/24 Unknown 50 mg tablet (Senna with Docusate Sodium) apixaban 5 mg tablet (Eliquis) 5 mg PO BID 10/18/24 12/08/24 Unknown insulin glargine 100 unit/mL (3 7 unit subcut 10/18/24 12/08/24 Unknown mL) subcutaneous pen (Lantus Solostar U-100 Insulin) metoprolol succinate 25 mg 25 mg PO BID 10/18/24 12/08/24 Unknown tablet,extended release 24 hr loperamide 2 mg tablet 2 mg PO Q6H PRN Diarrhea 10/30/24 12/08/24 Unknown acetaminophen 325 mg tablet 650 mg PO TID PRN Pain 12/08/24 12/08/24 Unknown doxazosin 1 mg tablet 1 mg PO HS 12/08/24 12/08/24 Unknown empagliflozin 25 mg tablet 25 mg PO DAILY 12/08/24 12/08/24 Unknown (Jardiance) lorazepam 0.5 mg tablet 0.5 mg PO ONCE PRN CATHETER CHANGE 12/08/24 12/08/24 Unknown risperidone 0.5 mg tablet 0.5 mg PO HS 12/08/24 12/08/24 Unknown Active Medications Generic Name Dose Route Start Last Admin Trade Name Freq PRN Reason Stop Dose Admin Acetaminophen 650 mg 12/08/24 15:22 12/15/24 08:40 Acetaminophen 325 Mg Tab PO 01/07/25 15:21 650 mg Q4H PRN Administration Pain or Fever Apixaban 5 mg 12/08/24 21:00 12/15/24 08:30 Apixaban 5 Mg Tablet PO 01/07/25 20:59 5 mg BID STEPHANIE Administration Clopidogrel Bisulfate 75 mg 12/09/24 09:00 12/15/24 08:30 Clopidogrel Bisulfate 75 Mg Tab PO 01/08/25 08:59 75 mg QAM STEPHANIE Administration Digoxin 0.125 mg 12/14/24 09:00 12/15/24 08:30 Digoxin 0.125 Mg Tab PO 01/13/25 08:59 0.125 mg DAILY STEPHANIE Administration Cefazolin Sodium 2,000 mg in 15 mls @ 3.75 mls/min 12/11/24 00:00 12/15/24 08:42 Ancef 2000mg IV 12/18/24 00:00 3.75 mls/min Q8H STEPHANIE Administration Insulin Aspart 0 units 12/08/24 16:30 12/15/24 13:11 Insulin Aspart Per Unit Charge SC 01/07/25 16:29 4 units ACHS STEPHANIE Administration Insulin Glargine 7 units 12/08/24 21:00 12/09/24 21:34 Lantus Per Unit Charge SC 01/07/25 20:59 7 units HS STEPHANIE Administration Melatonin 3 mg 12/08/24 21:00 12/14/24 20:41 Melatonin 3 Mg Tab PO 01/07/25 20:59 3 mg HS STEPHANIE Administration Metoprolol Succinate 50 mg 12/13/24 21:00 12/15/24 08:31 Metoprolol Succ 50mg Ext Rel Tab PO 01/12/25 20:59 50 mg BID STEPHANIE Administration Miscellaneous 15 - 30 gm 12/08/24 15:22 12/10/24 08:00 Carbohydrates For Hypoglycemia PO 01/07/25 15:21 15 gm UD PRN Administration Hypoglycemia Protocol Nystatin 1 appln 12/08/24 21:00 12/15/24 08:32 Nystatin Cr 15 Gm Tube EXT 01/07/25 20:59 1 appln BID STEPHANIE Administration Pantoprazole Sodium 40 mg 12/09/24 09:00 12/15/24 08:30 Pantoprazole 40 Mg Tab PO 01/08/25 08:59 40 mg QAM STEPHANIE Administration Potassium Chloride 10 meq 12/08/24 15:45 12/15/24 08:40 Potassium Chloride 10 Meq Tabcr PO 01/07/25 15:44 10 meq TID STEPHANIE Administration Quetiapine Fumarate 25 mg 12/09/24 09:00 12/15/24 08:30 Quetiapine Fumarate 25 Mg Tablet PO 01/08/25 08:59 25 mg QAM STEPHANIE Administration Risperidone 0.5 mg 12/08/24 21:00 12/14/24 20:43 Risperidone 0.5 Mg Tablet PO 01/07/25 20:59 0.5 mg HS STEPHANIE Administration Rosuvastatin Calcium 20 mg 12/08/24 21:00 12/14/24 20:43 Rosuvastatin Calcium 20 Mg Tab PO 01/07/25 20:59 20 mg HS STEPHANIE Administration Senna/Docusate Sodium 1 tab 12/08/24 15:22 12/15/24 08:40 Docusate Sodium/Senna 50/8.6mg Tab PO 01/07/25 15:21 1 tab DAILY PRN Administration Constipation PG Care Time/CCT Total # of Minutes Spent Total Time Spent with Patient: Total time spent is greater than 50% in coordination of care (as documented) at patient's floor/unit and/or counseling patient: Coding Level of Care Code 56714 SUB INP/OBS CARE 350MIN Diagnoses Fall W19.XXXA Encounter type: initial encounter Sepsis A41.9; R65.20; G93.41 Sepsis acute organ dysfunction status: with acute organ dysfunction Sepsis type: sepsis due to unspecified organism Severe sepsis acute organ dysfunction type: encephalopathy Severe sepsis shock status: without septic shock Catheter-associated urinary tract infection T83.511A; N39.0 Encounter type: initial encounter Indwelling urinary catheter type: indwelling urethral catheter Left leg cellulitis L03.116 Atrial fibrillation with RVR I48.91 CAD (coronary artery disease) I25.10 Cognitive impairment R41.89 (1) Fall Encounter type: initial encounter Qualified Code(s): W19.XXXA - Unspecified fall, initial encounter (2) Sepsis Sepsis acute organ dysfunction status: with acute organ dysfunction Sepsis type: sepsis due to unspecified organism Severe sepsis acute organ dysfunction type: encephalopathy Severe sepsis shock status: without septic shock Qualified Code(s): A41.9 - Sepsis, unspecified organism; R65.20 - Severe sepsis without septic shock; G93.41 - Metabolic encephalopathy (3) Catheter-associated urinary tract infection Encounter type: initial encounter Indwelling urinary catheter type: indwelling urethral catheter Qualified Code(s): T83.511A - Infection and in flammatory reaction due to indwelling urethral catheter, initial encounter; N39.0 - Urinary tract infection, site not specified
--- NOTE | 2024-12-16 07:38 | Hospitalist Progress Note ---
Date of Service December 16, 2024 Assessment & Plan (1) Sepsis: (2) Left leg cellulitis: (3) Catheter-associated urinary tract infection: (4) Atrial fibrillation with RVR: (5) Diabetes mellitus: Plan 74 y/o with chronic foote and venous stasis disease admitted with sepsis due to LLE cellulitis and rapid atrial fibrillation. Sepsis causing metabolic encephalopathy that has worsened baseline dementia Disposition planning: Extended discussion regarding goals of care on 12/14. See ACP note. Isma, his daughter Tricia, and son-in-law Vj would like to pursue hospice at his personal-nursing home. Of note they report that his goals of care were consistent with this a year ago however he did well enough that he no longer qualified however his chronic baseline has continued to decline that time and they would like to resume the services. He is not able to return to [facility] put up till Tuesday, per discussion with case management referral has been made to [address] [place] [address]. Based on his PPS at time of provider assessment of 12/14 he does qualify. Continue current medications as long as he is not having substantial side effects from these. Could discontinue Eliquis if he has any complications bleeding however he has tolerated this well and will continue this. He is sarah ating his current antiarrhythmic therapy well and we will continue these medications. Digoxin was slightly subtherapeutic this morning however heart rate has improved and overall appears more stable so we will continue current maintenance dosing. He is not on diuretics at baseline, he does have venous stasis component but seems near euvolemic after 500 cc of supplemental fluid at maintenance on 12/14. On returning home can continue p.o. as tolerated Family confirms DNR/DNI. He would not want aggressive measures/escalation of care/invasive measures. Phone update given to daughter Tricia who confirms above 12/15 - CM following. Placement pending Antipate return to [facility] with Hospice services 12/17. # Atrial fibrillation with rapid ventricular rate. Chronic atrial fibrillation, improved - Cardiology following. s/p dig load 0.5, --> 0.125mg daily. - Dig level subtherapeutic AM 12/14 and 12/15 Dig level /11 0.7, just slightly subtherapeutic however rate is improved and in the 90s. He is asymptomatic from this at this time - TTE: LVEF 50-55%. LVSF normal. Continue Eliquis, metoprolol, daily digoxin 0.125 mg No clinical change, otherwise stable and heart rate well-controlled 80s on 12/16. Labs deferred 12/16 Volume status Net negative 14.8 L over admission on evaluation 12/14. Admitting weight 113 kg, currently 102.5 kg. Dry weight per prior chart review appears around 102- 103 kg Heart rate, blood pressure improved with a slow IVF infusion subsequently discontinued. He has some lower extremity chronic edema but appears overall near euvolemic on reassessment # Sepsis - resolved, - Sepsis due to left lower extremity cellulitis. CAUTI ruled out - cultures negative, stopped meropenem - Cellulitis LLE appears resolved. Some hyperpigmentation however no erythema/warmth/tenderness on reassessment 12/15 Discontinue of cefazolin after 12/18. On discharge may complete course of therapy with Keflex # Diabetes type 2 - Diabetes type 2. Recent A1c 6.8% - Hold dapagliflozin -Basal discontinued due to hypoglycemia, continue sliding scale -BG well controlled on PRN aspart only # Chronic HFpEF and right heart failure - Not on chronic diuretics. Clinically slightly dry on assessment 12/14, near euvolemic 12/15 - BB continued # Coronary artery disease - Eliquis/Plavix continued. DAPT with aspirin d/leela Continue metoprolol # Chronic Foote catheter, BPH - Hold doxazosin due to hypotension, changed urinary catheter 12/09. Appeared to have been partially obstructed # Significant dementia with behavioral disturbance - Greatly improved as hospitalization has progressed Continue risperidone 0.5 mg at bedtime, quetiapine 25 mg every morning. Appears to be doing well with this combination. Family would like this combination continued on discharge # Sacral decubitus ulcer - Wound ostomy nurse consulted. - Continue frequent turning and pressure offloading. # Obstructive sleep apnea - Continue CPAP therapy at bedtime. # Venous stasis edema and dermatitis bilateral lower extremities - Venous stasis edema and dermatitis bilateral lower extremities, improved from prior but not completely resolved Will need mobilization for stasis component. # History of DVT Continue apixaban for prophylaxis. Admission and Anticipated Discharge Date Admission Date: December 08, 2024 Subjective Pending placement with hospice on 12/17 Heart rate stable in the 90s overnight BP More somnolent this morning.. No overnight events. Physical Exam Physical Exam: General: More somnolent this morning. HEENT: Atraumatic, normocephalic. Vision and hearing grossly intact Pulm: CTAB A&P. -wheezes, -rales, -rhonchi. Symmetrical chest rise. No increased work of breathing. No respiratory distress. Cardiac:irir, rate 80-90s, soft sm. Radial pulses intact and symmetrical. Ext: +b/l mild edema. erythema has resolved, mild hyperpigmentation remain Results & Data Results & Data Vital Signs (Past 12 Hours) Vital Signs Temp Pulse Resp BP Pulse Ox O2 Del Method 12/16/24 07:15 36.3 C L 97 H 18 102/67 94 Room Air 12/16/24 02:28 36.6 C 88 18 115/72 96 Room Air 12/15/24 22:33 36.5 C 98 H 18 111/67 94 Room Air 12/15/24 19:59 Room Air 12/15/24 19:45 36.9 C 92 H 20 107/70 98 Room Air PG Care Time/CCT Total # of Minutes Spent Total Time Spent with Patient: Total time spent is greater than 50% in coordination of care (as documented) at patient's floor/unit and/or counseling patient: Coding Level of Care Code 71745 SUB INP/OBS CARE 2/35MIN Diagnoses Sepsis A41.9 Left leg cellulitis L03.116 Catheter-associated urinary tract infection T83.511A; N39.0 Encounter type: initial encounter Indwelling urinary catheter type: indwelling urethral catheter Atrial fibrillation with RVR I48.91 Diabetes mellitus E11.9 (3) Catheter-associated urinary tract infection Encounter type: initial encounter Indwelling urinary catheter type: indwelling urethral catheter Qualified Code(s): T83.511A - Infection and inflammatory reaction due to indwelling urethral catheter, initial encounter; N39.0 - Urinary tract infection, site not specified
[2024-12-17 00:01] VITALS: TEMP 97.7
[2024-12-17 07:56] VITALS: O2SAT 95
[2024-12-17 11:40] VITALS: PULSE 67; RESP 18
--- NOTE | 2024-12-17 13:31 | Discharge Summary ---
Discharge Summary Date of Service December 17, 2024 Principal Dx & Hospital Course #1 = Principal Diagnosis (1) Sepsis: (2) Left leg cellulitis: (3) Catheter-associated urinary tract infection: (4) Atrial fibrillation with RVR: (5) Diabetes mellitus: Plan 74 y/o with chronic foote and venous stasis disease admitted with sepsis due to LLE cellulitis and rapid atrial fibrillation. Sepsis causing metabolic encephalopathy that has worsened baseline dementia Disposition planning: Dr. Vallejo had discussion regarding goals of care on 12/14/24. See ACP note. Isma, his daughter Tricia, and son-in-law Vj would like to pursue hospice at his personal-longterm. Of note they report that his goals of care were consistent with this a year ago however he did well enough that he no longer qualified however his chronic baseline has continued to decline that time and they would like to resume the services. He is not able to return to [facility] put up till Tuesday, per discussion with case management referral has been made to [address] [place] [address]. Based on his PPS at time of provider assessment of 12/14 he does qualify. Continue current medications as long as he is not having substantial side effects from these. Could discontinue Eliquis if he has any complications bleeding however he has tolerated this well and will continue this. He is tolerating his current antiarrhythmic therapy well and we will continue these medications. Digoxin was slightly subtherapeutic this morning however heart rate has improved and overall appears more stable so we will continue current maintenance dosing. He is not on diuretics at baseline, he does have venous stasis component but seems near euvolemic after 500 cc of supplemental fluid at maintenance on 12/14. On returning home can continue p.o. as tolerated Family confirms DNR/DNI. He would not want aggressive measures/escalation of care/invasive measures. Phone update given to daughter Tricia who confirms above 12/15 - CM following. Antipate return to [facility] with Hospice services 12/17. # Atrial fibrillation with rapid ventricular rate. Chronic atrial fibrillation, improved - Cardiology following. s/p dig load 0.5, --> 0.125mg daily. - TTE: LVEF 50-55%. LVSF normal. Continue Eliquis, metoprolol, daily digoxin 0.125 mg No clinical change, otherwise stable and heart rate well-controlled 80s on 12/16. Labs deferred 12/16 # Sepsis - resolved, - Sepsis due to left lower extremity cellulitis. CAUTI ruled out - cultures negative, stopped meropenem - Cellulitis LLE appears resolved. Some hyperpigmentation however no erythema/warmth/tenderness on reassessment 12/15 Discontinue antibiotics after 12/18. On discharge may complete course of therapy with Keflex # Diabetes type 2 - Diabetes type 2. Recent A1c 6.8% - Hold dapagliflozin as may contribute to Cauti -Basal discontinued due to hypoglycemia # Chronic HFpEF and right heart failure - Not on chronic diuretics. Clinically slightly dry on assessment 12/14, near euvolemic 12/15 - BB continued # Coronary artery disease - Eliquis/Plavix continued. DAPT with aspirin d/leela Continue metoprolol # Chronic Foote catheter, BPH - Hold doxazosin due to hypotension, changed urinary catheter 12/09. Appeared to have been partially obstructed # Significant dementia with behavioral disturbance - Greatly improved as hospitalization has progressed Continue risperidone 0.5 mg at bedtime, quetiapine 25 mg every morning. Appears to be doing well with this combination. Family would like this combination continued on discharge # Sacral decubitus ulcer - Wound ostomy nurse consulted. - Continue frequent turning and pressure offloading. # Obstructive sleep apnea - Continue CPAP therapy at bedtime. # History of DVT Continue apixaban for prophylaxis. Notes For Next Care Provider Attention paid to his diabetic control as he did not require much control while in the hospital though he was a picky eater. His insulin has not been restarted and Jardiance may be associated with increased urinary tract infection Admission HPI Per Admitting Provider The patient consented to use of [employer], an AI based tool that will listen to our encounter and draft a clinical note based on our conversation. All notes will be reviewed and edited by me before entering them into the medical record. The patient presents following a fall from his bed yesterday, cause unknown. Found on the bathroom floor this morning, no memory of the incident. Reports persistent left knee pain, previously evaluated for surgery but deemed unnecessary. Swelling in legs over the weekend, not experienced in a long time. History of arthritis, hereditary from his mother. No abdominal or back pain, chest pain, shortness of breath, cough, or pain associated with his catheter or bladder spasms. History is limited because of dementia. Experiencing soreness in right neck and shoulder for 3-5 weeks, cause unknown. No cardiac symptoms such as chest pain or palpitations. History of smoking, quit long ago. Discharge Exam Constitutional Pleasantly confused no focal complaints picking through some lunch Discharge Plan Discharge Items Patient Disposition: Personal Shelter Reason For Visit: SEPSIS Discharge Diagnosis: sepsis/left leg cellulitis, resolved atrial fibrillation rapid response, rate controlled dementia with behavior disturbance Condition on Discharge: Fair Activity: Resume your previous activity Non-emergency contact: Primary Care Provider and Specialist Call non-emergency contact if: your symptoms worsen Follow-up/Referrals: Justo Burgos DO [Primary Care Provider] - Diet: Regular Addtl Attending Provider Instructions: pt did have digoxin added to medications to help control rapid rate of afib with good response completes Cefazolin treatment 12/18 for leg cellulitis continues with chronic foote catheter, infection ruled out Sacral decubitus poa, continues to refuse care of this area at times cpap for emily goals of care discussion due to pts discomfort from sacral decubitus and progression of memory issues family has requested evaluation for hospice upon return to [facility] Pending Studies at Discharge: No Stand-Alone Forms: My [facility] [employer], Smoking Cessation Skilled Items Patient informed of condition?: Yes DNR: Yes Discharge Level of Care: Other Communicable Disease: No Discharge Prognosis: Stable Lines: None Urinary Catheter: Yes Medications and DC Order Prescriptions: New digoxin [Digitek] 125 mcg (0.125 mg) Tablet 0.125 mg PO DAILY Qty: 30 3RF cephalexin 500 mg capsule 500 mg PO BID Qty: 3 0RF Continued quetiapine [Seroquel] 25 mg tablet 25 mg PO QAM Hold Instructions: Resume on 11/23/24. until seen by PCP - has not had while inpatient cholecalciferol (vitamin D3) [Vitamin D3] 50 mcg (2,000 unit) Capsule 50 mcg PO QAM pantoprazole 40 mg tablet,delayed release (DR/EC) 40 mg PO QAM melatonin 3 mg Tablet,Disintegrating 3 mg PO HS potassium chloride 10 mEq tablet,ER particles/crystals 10 meq PO TID clopidogrel 75 mg Tablet 75 mg PO QAM nystatin 100,000 unit/gram Cream 1 applic TOPICAL BID Rx Instructions: apply to scrotal area metoprolol succinate 25 mg Tablet Extended Release 24 Hr 25 mg PO BID Eliquis 5 mg Tablet 5 mg PO BID acetaminophen 325 mg Tablet 650 mg PO TID PRN (Reason: Pain) lorazepam 0.5 mg Tablet 0.5 mg PO ONCE PRN (Reason: CATHETER CHANGE) Rx Instructions: 1/2 HOUR PRIOR TO CATHETER CHANGES risperidone 0.5 mg Tablet 0.5 mg PO HS sennosides-docusate sodium [Senna with Docusate Sodium] 8.6-50 mg Tablet 1 tab-cap PO DAILY PRN (Reason: Constipation) loperamide 2 mg Tablet 2 mg PO Q6H PRN (Reason: Diarrhea) Held insulin glargine [Lantus Solostar U-100 Insulin] 100 unit/mL (3 mL) Insulin Pen 7 unit SUBCUT HS Hold Instructions: Provider's Order- asses glucose control with bsg before restarting Discontinued aspirin 81 mg Tablet,Delayed Release (Dr/Ec) 81 mg PO QAM rosuvastatin 20 mg Tablet 20 mg PO HS folic acid 1 mg Tablet 1 mg PO BID multivitamin [Daily-Lala] Tablet 1 tab PO QAM doxazosin 1 mg Tablet 1 mg PO HS Jardiance 25 mg Tablet 25 mg PO DAILY Discharge Orders: Discharge Order (Routine); Ordered 12/17/24 Ordered By: Isma Kate Admission Data Admit Date/Time: 12/08/24 13:15 Attending Provider: Isma Kate Admit Provider: Tricia Cruz Primary Care Provider: Justo Burgos Other Providers: [facility]; [facility] Stay Data Consultations 12/08/24 11:03 ED Decision to Admit Stat 12/12/24 12:23 Consult Cardiology Routine Diagnostic Imagining Performed 12/08/24 07:40 CT cervical spine wo con Stat CT head/brain wo con Stat Pending Results Patient Have Any Pending Studies at Discharge: No Discharge Instructions Given to Patient (Per Discharging Provider) pt did have digoxin added to medications to help control rapid rate of afib with good response completes Cefazolin treatment 12/18 for leg cellulitis continues with chronic foote catheter, infection ruled out Sacral decubitus poa, continues to refuse care of this area at times cpap for emily goals of care discussion due to pts discomfort from sacral decubitus and progression of memory issues family has requested evaluation for hospice upon return to [facility] Total Time Total Time Spent Total Time Spent (In Minutes): I personally have spent greater than 30 minutes of time on the patient discharge today including review of tests, documentation, exam, and discussing treatment plan moving forward with the patient. Coding Level of Care Code 24979 INP/OBS DISCH >30 MIN Diagnoses Sepsis A41.9 Left leg cellulitis L03.116 Catheter-associated urinary tract infection T83.511A; N39.0 Encounter type: initial encounter Indwelling urinary catheter type: indwelling urethral catheter Atrial fibrillation with RVR I48.91 Diabetes mellitus E11.9
[2024-12-17 13:38] VITALS: BP 97/57
== END 2024-12-17 14:10 | disposition home or self-care (01) | DRG 871 ==
LOC: ED 07:33 → 2S 13:15 → SUATTDRO 13:15 → 2S 14:59